=== PATIENT | male | born 1955 | race Caucasian/White ===

== ENCOUNTER 2023-06-29 21:49 | Inpatient (IN) | payer MEDICARE, MEDICAID, SELFPAY ==
[2023-06-29 17:14] VITALS: BP 156/85
--- NOTE | 2023-06-29 17:23 | ED.GENMED ---
History of Present Illness
General
Chief Complaint: Fall
Source: patient and ambulance crew
Exam Limitations: none
Time Seen by Provider: 06/29/23 17:01
Nursing documentation reviewed up to this point in time: agreed with
History of Present Illness
History of Present Illness:
68-year-old male presents emergency department after an unwitnessed fall. He reports he hit his head. He has had blood in his urine. He is intermittently confused.
Past History
Past History
ED Past Medical History: HTN, NIDDM, Renal failure, Other (Anemia) and Other (Metabolic encephalopathy, hyponatremia)
ED Past Surgical History: Orthopedic (Laminectomy)
Social History
Tobacco: Non-smoker
Alcohol: None
Drug: None
Living: alf
Review of Systems
Review of Systems
Allergies reviewed?: Yes
All Other Systems: Not applicable
Constitutional: Denies fever
EENT: Reports no symptoms
Respiratory: Reports no symptoms
Cardiac: Reports no symptoms
ABD/GI: Reports no symptoms
: Reports bleeding
Musculoskeletal: Reports no symptoms
Skin: Reports no symptoms
Neurological: Reports no symptoms
Endocrine: Reports no symptoms
Phy Exam
Physical Exam
Physical Exam:
Physical Exam
General: Chronic ill appearance, afebrile
Neck: supple. no meningeal signs. normal posterior pharynx
Heart: s1/s2 regular rate and rhythm, no murmur. equal radial
pulses. Dialysis catheter right subclavian
HEENT: Pupils equal round reactive to light, EOMI
Lungs: no acute respiratory distress. clear bilaterally
Abdomen: normal bowel sounds. not tender. no CVAT
: Mccloud catheter in place
Neuro: alert and oriented to person place, confused as to events. no focal neurological deficits cranial nerves II through XII intact
Skin: no rash
Psychiatric: Interactive
Extremities: Right upper extremity and left lower extremity edema. no calf tenderness. negative homans. good distal pulses
Course
Orders/Labs/Results
Orders:
Orders
06/29/23 17:14
IV Insert/Care/Rem.- Treatment PRN
06/29/23 17:15
Electrocardiogram (*1) Urgent
Reason for Study: Other
Other Reason for Exam: unwitnessed fall
CT Head W/o Iv Contrast Urgent
Comment:
Reason For Exam: fall, on eliquis
06/29/23 17:21
Pelvis, 1 or 2 Views CR [CR Pelvis - 1 Or 2 Views ] Urgent
Comment:
Reason For Exam: fall
06/29/23 17:45
Type+Screen Urgent
Complete Blood Count/With Diff Urgent
Comprehensive Metabolic Panel Urgent
06/29/23 19:38
Urinalysis Reflex To Culture Urgent
Date Specimen was Collected: 06/29/23
Time Specimen was Collected: 19:29
Urine Microscopic Reflex Cult Urgent
STOOL [C difficile Antigen & Toxins] Urgent
LEXUS Source: Feces/Stool
Specimen Description:
Date Specimen was Collected: 06/29/23
Time Specimen was Collected: 19:29
Stool Culture Urgent
LEXUS Source: Feces/Stool
Specimen Description:
Date Specimen was Collected: 06/29/23
Time Specimen was Collected: 19:29
Urine Culture Urgent
LEXUS Source: U
Specimen Description:
Date Specimen was Collected: 06/29/23
Time Specimen was Collected: 19:29
06/29/23 21:32
Admit/Transfer Patient As Directed
Co-Sign Provider:
Level of Care: Inpatient admission
Assign to:: Medical/Surgical
Physician / Group: Hospitalist
Diagnosis: Confusion, fall, hematuria
Reason for Hospitalization: Confusion, fall, hematuria
Expected length of stay greater than two midnights?: Yes
ELOS- Estimated Length of Stay in days: 3
I certify the patient meets the requirements for IP care: Yes
06/29/23 21:34
Code Status As Directed
Resuscitation Status: Full Code
06/29/23 22:00
Flush (0.9% Sodium Chloride) [Flush (Nss)] See Dose Instructions IV PER PROTOCOL
06/29/23 22:21
Acetaminophen [Tylenol] 1,000 mg PO TID
Bisacodyl [Dulcolax] 10 mg RECTAL DAILY PRN
Bisacodyl [Dulcolax] 10 mg RECTAL [id number] PRN
Docusate W/Senna [Senokot-S] 1 tablet PO BIDPRN PRN
Magnesium Hydroxide [Milk of Magnesia] 30 ml PO HSPRN PRN
Oxycodone [Roxicodone] 10 mg PO Q6H PRN
Polyethylene Glycol Powder [Miralax] 17 grams PO DAILYPRN PRN
06/29/23 22:21
NEPHROLOGY CONSULT Routine
Consulting Provider: Tyrese Dunn V.
Was physician already notified: Yes
Reason for consult: HD
VTE Contraindication Routine
VTE Mechanical Device Contraindication: Edema of lower extremity
Pharmocologic Contraindication: Renal impairment
Comment: on apixaban
Activity As Directed
Activity Level: Out of Bed- Wheelchair
Neurological Checks As Directed
Frequency: Per unit guidelines
Vital Signs As Directed
Frequency: Per unit guidelines
06/29/23 23:53
H&H Q6H
06/30/23 04:21
H&H Q6H
06/30/23 Breakfast
Regular
At Your Request: Limited Participation
Basic Metabolic Panel IN AM
Complete Blood Count/No Diff IN AM
TSH IN AM
06/30/23 08:00
Amlodipine [Norvasc] 10 mg PO DAILY
Apixaban [Eliquis] 2.5 mg PO BID
Aspirin Chewable [Low Strength Aspirin] 81 mg PO DAILY
Cholecalciferol (Vitamin D3) [VITAMIN D3 (cholecalciferol)] 25 mcg PO DAILY
Clopidogrel Bisulfate [Plavix] 75 mg PO DAILY
GlipiZIDE [Glucotrol] 5 mg PO BID AT 0800,1700
Lidocaine [Lidocaine 4% Patch] 1 patch TOPICAL DAILY
METFORMIN HCl [Glucophage] 500 mg PO BID
Metoprolol [Lopressor] 25 mg PO BID
Pantoprazole [Protonix] 40 mg PO DAILY
06/30/23 10:21
H&H Q6H
06/30/23 16:21
H&H Q6H
Abnormal Lab Results
06/29/23 06/29/23
17:45 19:38
WBC 15.9 H 10^3/uL
(4.8-10.8)
RBC 2.70 L 10^6/uL
(4.70-6.10)
Hgb 7.7 L g/dL
(13.0-18.0)
Hct 23.7 L %
(39.0-52.0)
MCHC 32.5 L g/dL
(33.0-37.0)
Plt Count 495 H 10^3/uL
(130-400)
Abs Immat Gran (auto) 0.1 H 10^3/uL
(0-0.05)
Absolute Neuts (auto) 13.0 H 10^3/uL
(1.4-6.5)
Absolute Monos (auto) 1.4 H 10^3/uL
(0.1-0.6)
Immature Gran % 0.6 H %
(0-0.5)
Neutrophils % 81.8 H %
(42.2-75.2)
Lymphocytes % 7.4 L %
(20.5-51.1)
BUN 33 H mg/dl
(9-20)
Creatinine 4.0 H mg/dL
(0.7-1.3)
Glucose 112 H mg/dl
(70-99)
Alkaline Phosphatase 137 H U/L
(38-126)
Albumin 3.0 L g/dl
(3.5-5.0)
Ur Occult Blood Reflex 4+ A
(Negative)
Leukocyte Esterase Rfl 1+ A
(Negative)
Urine RBC >100 A /HPF
(0-2)
Urine Glucose 1+ A
(Negative)
Urine Albumin (Reflex) 2+ A
(Neg - Trace)
06/29/23 17:45
06/29/23 17:45
Vital Signs
Initial and Last Documented VS:
Initial Vital Signs
Temp Pulse Resp BP Pulse Ox
97.9 F 86 17 156/85 96
06/29/23 17:14 06/29/23 17:14 06/29/23 17:14 06/29/23 17:14 06/29/23 17:14
Last Documented Vital Signs
Temp Pulse Resp BP Pulse Ox
98.0 F 111 18 165/85 95
06/29/23 22:30 06/29/23 22:30 06/29/23 22:30 06/29/23 22:30 06/29/23 22:30
MDM/Problems Addressed
MDM/Problems Addressed:
68-year-old male with anemia, hematuria on Eliquis. Admit to hospitalist, follow hemoglobin, dialyze. Unclear cause of leukocyte, no infection found.
Chronic conditions affecting care: Kidney disease and Other (Prior DVT)
Acute Exacerbation and/or Progression of Chronic Illness: Kidney disease and Other (Prior DVT)
*Radiology
Radiology exam reviewed: radiology read reviewed (CT head no acute findings, pelvic x-ray no acute findings)
*Pulse Oximetry
Patient hypoxic: no
*EKG
Interpreted by ED Provider?: NA
*Dry End Operator Interpretation
Rate: Dry End Operator- N/A
*Critical Care Note
Total Time (30-74mins, 75-104mins- exclusive of procedures): Not Applicable
Patient Management
Social determinants of health affecting care: Living situation
Discussion with other providers: Hospitalist
Escalation/DeEscalation of care consider admission/obs:
admit indicated
ED Attending Note
-
Portions of this chart may have been created with voice recognition software.� Occasional wrong word or��sound alike� substitutions may have occurred due to the inherent limitations of voice recognition software.
Discharge Plan
Departure
Patient Disposition: Admit
Date of Disposition: 06/29/23
Time of Disposition: 20:08
Admit to: Telemetry
Presentation/result/management discussed w/ accepting MD/DO: Hospitalist
Patient with high blood pressure during this ER visit?: Yes
Condition: Fair
Discharge Problem:
Hematuria, Anemia, Fall, Chronic anticoagulation
Interventions
Interventions:
*Risk Screen - Suicide Last Done: 06/29/23 19:22
*General Assessment Last Done: 06/29/23 19:22
*Neglect/Abuse Screening Last Done: 06/29/23 19:22
ED- Fall Risk Assessment Last Done: 06/29/23 19:25
*ED COVID-19 Vaccine History Last Done: 06/29/23 19:22
*Nursing Disposition Last Done: 06/29/23 22:43
ED-Musculoskeletal Assessment Last Done: 06/29/23 19:25
ED- Neurological Assessment Last Done: 06/29/23 19:25
ED-Skin Assessment Last Done: 06/29/23 19:25
Discharge Date and Time
Discharge Date/Time: 06/29/23 22:43
[2023-06-29 17:53] LABS: % Basophils 0.3 % (0-2); % Eosinophils 1.2 % (0-6); % Immature Granulocytes 0.6 % (0-0.5); % Lymphocytes 7.4 % (20.5-51.1); % Monocytes 8.7 % (1.7-9.3); % Neutrophils 81.8 % (42.2-75.2); Absolute Basophils 0.1 10^3/uL (0-0.2); Absolute Eosinophils 0.2 10^3/uL (0-0.7); Absolute Immature Granulocytes 0.1 10^3/uL (0-0.05); Absolute Lymphocytes 1.2 10^3/uL (1.2-3.4); Absolute Monocytes 1.4 10^3/uL (0.1-0.6); Hematocrit 23.7 % (39.0-52.0); Hemoglobin 7.7 g/dL (13.0-18.0); Mean Corp Hgb Conc. 32.5 g/dL (33.0-37.0); Mean Corpuscular Hgb 28.5 pg (27.0-31.0); Mean Corpuscular Volume 87.8 fL (80.0-94.0); Mean Platelet Volume 8.9 fL (7.4-10.4); Nucleated Red Blood Cells % 0 % (-); Platelet Count 495 10^3/uL (130-400); Red Cell Dist. Width 14.5 % (11.5-14.5); White Blood Cell Count 15.9 10^3/uL (4.8-10.8)
[2023-06-29 18:09] LABS: ALT (SGPT) < 10 U/L (0-50); AST (SGOT) 18 U/L (17-59); Alkaline Phosphatase 137 U/L (38-126); Blood Urea Nitrogen 33 mg/dl (9-20); Calcium 9.3 mg/dl (8.4-10.2); Carbon Dioxide 29 mmol/L (22-30); Chloride 98 mmol/L (98-107); Glucose 112 mg/dl (70-99); Potassium 4.3 mmol/L (3.5-5.1); Sodium 136 mmol/L (135-145); Total Bilirubin 0.5 mg/dl (0.2-1.3); Total Protein 6.6 g/dl (6.3-8.2); eGFR 15.73
--- NOTE | 2023-06-29 19:00 | EDRN ---
Report received, patient yelling out for nurse, went in to see patient and got some vitals and sent off some labs ordered. patient stating he is soiled, patient cleaned up, requesting to keep his bed coronado, states 'i can get myself on and off it, I do
it all the time' patient reminded to use call mullen.
[2023-06-29 19:45] LABS: Urine Albumin 2+ (Neg - Trace); Urine Bilirubin Negative (Negative); Urine Character Very Cloudy (Clear); Urine Color Red; Urine Glucose 1+ (Negative); Urine Ketone Negative (Negative); Urine Leukocyte 1+ (Negative); Urine Nitrite Negative (Negative); Urine Occult Blood 4+ (Negative); Urine Urobilinogen Negative (Neg - 1+)
[2023-06-29 19:54] LABS: Urine Red Blood Cell >100 /HPF (0-2)
[2023-06-29 19:57] VITALS: BP 134/86
--- NOTE | 2023-06-29 20:00 | EDRN ---
Patient yelling again, go into room, patient yells 'put me on this' as he hands me the bedpan, assisted patient with bed coronado, again reminding him about using the call mullen and how he's speaking to staff, call mullen in place
--- NOTE | 2023-06-29 20:45 | EDRN ---
Dr. Staton in at bedside working on admission, patient tells him, 'he's not sure where his assistant technician went but he wants applejuice' Admission in progress patient reminded about call mullen and not yelling out again, patient was brought drink by PCT,
not assistant technician.
--- NOTE | 2023-06-29 21:13 | HPS.HSE ---
Family Physician
-
Family Physician: * NONE
Chief Complaint
-
fall and confusion
History of Present Illness
68 man with h/o ESRD on HD, who lives in a group home and is a full lift, comes in confusion, and hematuria s/p a fall in his NH. Patient was confused and could not provide further history. He has a history of metabolic encephalopathy. He
usually gets his care at [facility]. We do not have prior visits here. IN ED, ac CT of his head showed:
No acute intracranial abnormality noted.
Mild atrophy.
Minimal nonacute sinusitis.
A XR of his abd showed:
No acute fractures nor dislocations are noted.
There is mild bilateral acetabular sclerosis.
There is mild diffuse joint space narrowing of both hip joints.
Medical History
Past Medical History
Past Medical History: Reports Other
Additional Past Medical History:
ESRD on HD
Chronic anemia
Metabolic encephalopathy
Hyponatremia
NIDDM
Past sepsis from laminectomy
Essential HTN
Chronic pain on opioids
GERD
Past Surgical History: Reports Other
Additional Past Surgical History:
See above
Social History
Unable to obtain full social history at this time due to: Acuity
Family History
Family History: Not pertinent
Allergies / Home Medications
Allergies reflects when Allergies were last updated in [facility].
Home Medications with original date entered in [facility]
Allergy/Medication List:
Allergies
Allergy/AdvReac Type Severity Reaction Status Date / Time
No Known Allergies Allergy Unverified 06/29/23 20:04
Home Medications
acetaminophen 500 mg tablet 1,000 mg PO TID 06/29/23
amlodipine 10 mg tablet 10 mg PO DAILY 06/29/23
apixaban 2.5 mg tablet 2.5 mg PO BID 06/29/23
aspirin 81 mg chewable tablet 81 mg PO DAILY 06/29/23
bisacodyl 10 mg rectal suppository 10 mg MA DAILY PRN if no results for MOM 06/29/23
cholecalciferol (vitamin D3) 25 mcg (1,000 unit) tablet 25 mcg PO DAILY 06/29/23
clopidogrel 75 mg tablet 75 mg PO DAILY 06/29/23
glipizide 5 mg tablet 5 mg PO BID 06/29/23
lidocaine 4 % topical patch 1 patch topical DAILY lower back 06/29/23
magnesium hydroxide 400 mg/5 mL oral suspension (Milk of Magnesia) 30 ml PO HSPRN PRN if no BM in 3 days 06/29/23
metformin 500 mg tablet 500 mg PO BID 06/29/23
metoprolol tartrate 25 mg tablet 25 mg PO BID 06/29/23
oxycodone 10 mg tablet 10 mg PO Q6H PRN severe pain 06/29/23
pantoprazole 40 mg tablet,delayed release 40 mg PO DAILY 06/29/23
Review of Systems
-
Unable to obtain full review of systems at this time due to: Acuity
Physical Exam
Vital Signs
Vital Signs
Temp Pulse Resp BP Pulse Ox
97.9 F 95 16 134/86 96
06/29/23 17:14 06/29/23 19:57 06/29/23 19:57 06/29/23 19:57 06/29/23 19:57
Physical Exam
General: Well Developed and Obese
HEENT: Atraumatic, Nose Appears Normal and Ears Appear Normal
Respiratory: Clear
Cardiac: S1/S2 and Regular Rhythm
GI: Soft, Non Tender and Non Distended
Musculoskeletal: No Clubbing, No Cyanosis, Edema, Right Upper Extremity and Edema, Left Lower Extremity
Skin: Warm and Dry
Neuro: Awake and Alert
Psych: Confused
Laboratory Results
-
06/29/23 17:45
06/29/23 17:45
Laboratory Results
Total Bilirubin 0.5 mg/dl (0.2-1.3) 06/29/23 17:45
AST 18 U/L (17-59) 06/29/23 17:45
ALT < 10 U/L (0-50) 06/29/23 17:45
Alkaline Phosphatase 137 U/L (38-126) H 06/29/23 17:45
Data Reviewed
-
Lab Data: Labs Reviewed by me
Impression/Plan
-
IMPRESSION:
68 man with fall, confusion, no prior records in our system, and the following findings:
WBC 15.9
H/H 7.7/23.7
BUN/Creat 33/4.0
Hematuria
PLAN:
1. Hematuria - unclear what his baseline H/H is.
H/H Q6
Transfuse if Hgb < 7.0
2. Confusion with h/o metabolic encephalopathy and large amounts of opioids
Get past records in the am
Follow daily
3. WBC of 15.9, vitals OK, without a fever.
This could be stress reaction vs an infection
If infection, could be renal source or skin (legs have chronic wounds)
Re-check in am
If going up, start abx
If fever starts, or vitals worsen, start abx
Follow results of UA culture
4. ESRD on HD
Renal consult for HD
Full code
apixaban for DVTp
[2023-06-29 22:30] VITALS: BP 165/85; BMI 27.5
[2023-06-29] MEDS: TYLENOL 1000 MG PO (23:08)
[2023-06-30] VITALS (7 sets, daily range): BP systolic 118–156; BP diastolic 60–74; BMI 27.4
--- NOTE | 2023-06-30 00:03 | PTCARENOTE ---
Patient arrived from the ED via stretcher at approximately 2215. Patient pulled over from stretcher to bed w/ no event. Patient able to answer all orientation questions correctly, but confused conversation at times. Assessment completed as
documented. VSS as documented. Patient oriented to room. Bed in lowest position. Bed alarm in place for patient safety. Call mullen within reach.
[2023-06-30 00:13] LABS: Hematocrit 22.2 % (39.0-52.0)
[2023-06-30 05:55] LABS: Hematocrit 22.7 % (39.0-52.0); Hemoglobin 7.1 g/dL (13.0-18.0); Mean Corp Hgb Conc. 31.3 g/dL (33.0-37.0); Mean Corpuscular Hgb 28.1 pg (27.0-31.0); Mean Corpuscular Volume 89.7 fL (80.0-94.0); Mean Platelet Volume 8.9 fL (7.4-10.4); Platelet Count 431 10^3/uL (130-400); Red Blood Cell Count 2.53 10^6/uL (4.70-6.10); Red Cell Dist. Width 14.4 % (11.5-14.5); White Blood Cell Count 11.7 10^3/uL (4.8-10.8)
[2023-06-30 06:29] LABS: Blood Urea Nitrogen 39 mg/dl (9-20); Calcium 9.2 mg/dl (8.4-10.2); Carbon Dioxide 23 mmol/L (22-30); Chloride 100 mmol/L (98-107); Estimated Creatinine Clearance 19 ml/min; Glucose 82 mg/dl (70-99); Potassium 4.6 mmol/L (3.5-5.1); Sodium 135 mmol/L (135-145); eGFR 13.65
[2023-06-30 06:57] LABS: TSH 2.19 uIU/ml (0.47-4.68)
--- NOTE | 2023-06-30 09:07 | WOUNDNOTE ---
R HEEL (PLANTAR LATERAL)(with photo flash)
--- NOTE | 2023-06-30 09:07 | WOUNDNOTE ---
R HEEL (LATERAL PLANTAR)
--- NOTE | 2023-06-30 09:08 | WOUNDNOTE ---
R PLANTAR FOOT (with photo flash)
[2023-06-30] MEDS: ELIQUIS 2.5 MG PO ×2 (09:17→21:04)
[2023-06-30] MEDS: GLUCOPHAGE 500 MG PO (09:17)
[2023-06-30] MEDS: NORVASC 10 MG PO (09:17)
[2023-06-30] MEDS: LOW STRENGTH ASPIRIN 81 MG PO (09:17)
[2023-06-30] MEDS: TYLENOL 1000 MG PO ×3 (09:17→21:04)
[2023-06-30] MEDS: VITAMIN D3 (cholecalciferol) 25 MCG PO (09:17)
[2023-06-30] MEDS: PROTONIX 40 MG PO (09:17)
[2023-06-30] MEDS: PLAVIX 75 MG PO (09:18)
[2023-06-30] MEDS: LIDOCAINE 4% PATCH 1 PATCH TOPICAL (09:18)
[2023-06-30] MEDS: GLUCOTROL 5 MG PO (09:18)
[2023-06-30] MEDS: LOPRESSOR 25 MG PO ×2 (09:18→21:04)
--- NOTE | 2023-06-30 09:20 | WOUNDNOTE ---
[facility] RN note: Patient admitted with confusion, fall, hematuria, +C diff. Patient admitted from [facility].
See H&P for complete history.
PMH: ESRD on HD, 04/2022 RLE (bypass?) and R heel ulcer I+D surgery at [facility] (patient stated Dr. Ortiz vascular surgeon did his surgery and sees her weekly, last seen 06/18/23 as per patient). Anemia, metabolic encephalopathy, NIDDM, laminectomy, HTN,
chronic pain, GERD, on Eliquis, patient's IV Cefazolin was placed on hold 06/27 as per SNF paperwork. Patient stated he lived with his sister prior to his SNF rehab admission. He gave this tech writer permission to call his sister to ask about his
medial/surgical history.
Wound Location and type/assessment: Patient admitted with: Full thickness diabetic/PAD, surgical R plantar lateral heel ulcer close to or to bone, plantar section dark red/yellow fibrin, lateral heel section with black eschar with erythema around
eschar section. Ulcer draining mod-large amount yellow/green drainage (Mesalt and Xerofoam, gauze, abd pad, Kerlix wrap was on R ulcer). R dorsal foot dry black eschar. R groin and R medial calf healed scars suspect from bypass surgery.
Appetite: fair for breakfast.
Pressure redistribution devices in place: Versacare Accumax. Patient is able to turn to side to be placed on bedpan. Pillow to off load heels. He stated he has multiple heel off loading boots at [facility]. And he stated he is NWB RLE.
Plan: Dressing changed R heel. Heels off bed with pillow. t/c SPD and orderer bariatric air chair cushion and TruVue lite heel relief boot.
Will confirm orders with Dr. Wray and update RN/PCT Tiffany.
Care plan to be updated and will follow as needed. Patient to follow up with his surgeon.
[2023-06-30 09:35] LABS: Glucose - Point of Care 201 mg/dl (70-99)
--- NOTE | 2023-06-30 10:24 | W.PN.HOSP.TC ---
Today's Communication/Plan
-
start ancef
obtain culture reports from [facility]
ID consult
start oral vancomycin
Assessment / Plan
Assessment / Plan
1. C diff colitis
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
-Patient having liquid stool overnight.
-Mary score 1 .
-starting on oral vancomycin
-ID consult
2. L2-L3 epidural abscess/discitis
Psoas abscess
-S/p lumbar laminectomy and drainage on 06/12 at [facility]
-culture data requested
-Repeat blood culture ordered
-maintain on ancef 2g and 3g Sa after HD
3. LUIS ANGEL on HD
Suspected Post infectious GN vs ATN
-Patient required brief dialysis support in April
-Patient and [facility] in May patient had recurrence of renal failure necessitating dialysis support
-Patient currently on Friday dialysis routine
-Nephro consulted for further help
4. Hematuria
- callahan catheter in place
- on plavix/eliquis, urine clearing up
5. Acute normocytic anemia
-Suspecting anemia secondary to renal disease
-Hemoglobin 7.1, transfusing 1 unit PRBC with HD today
6. Chronic Right heel wound
PAD with h/o RLE art stent
-Per limited records available, patient have repeated debridement by vascular surgeon at [facility]
-No MRI of right foot per records review.
-retail greeting card merchandiser consulted and following
DVT PPX - eliquis
Full code
Discussed care with ID
Total time spent : 55 mins
Anticipated Discharge: > 48 hours
Subjective/Interval History
-
Date of Service: June 30, 2023
resting comfortable in bed
afebrile in night
having liquid stool
no abd pain/nausea/vomiting
Objective Data
-
Labs:
Laboratory Results
06/29/23 06/30/23 06/30/23
23:53 05:41 05:41
WBC 11.7 H
Hgb 7.0 L Cancelled 7.1 L
Hct 22.2 L Cancelled
Plt Count
Sodium
Potassium
Chloride
Carbon Dioxide
BUN
Creatinine
Glucose
Calcium
06/30/23 06/30/23 06/30/23
05:41 10:13 16:21
WBC
Hgb Pending Pending
Hct 22.7 L Pending Pending
Plt Count 431 H
Sodium 135
Potassium 4.6
Chloride 100
Carbon Dioxide 23
BUN 39 H
Creatinine 4.5 H*
Glucose 82
Calcium 9.2
Vital Signs:
Vital Signs
Temp Pulse Resp BP Pulse Ox
97.9 F 91 18 153/74 95
06/30/23 08:48 06/30/23 08:48 06/30/23 08:48 06/30/23 08:48 06/30/23 08:48
I&O
06/29/23 06/30/23 07/01/23
06:59 06:59 06:59
Intake Total 480 / 480 100 / 100
Output Total 675 / 675
Balance -195 / -195 100 / 100
Review of Systems
-
Cardiac: Reports No Symptoms
Abdomen/GI: Denies Abdominal Pain or Nausea
Breast: Reports No Symptoms
Physical Exam
-
General: No Apparent Distress and Comfortable
HEENT: Negative Oxygen
Respiratory: Clear to Auscultation
Cardiac: Regular Rhythm and S1/S2; Negative Murmur
GI: Soft, Nontender, Nondistended and Normal Bowel Sounds
Musculoskeletal: No Edema and Other (Right heel dressing in place)
Neuro: Awake, Alert, Oriented, No Motor Deficits and Nonfocal/Grossly Intact
Psych: Calm
[2023-06-30 10:30] LABS: Hematocrit 22.9 % (39.0-52.0); Hemoglobin 7.2 g/dL (13.0-18.0)
--- NOTE | 2023-06-30 10:58 | WOUNDNOTE ---
[facility] RN note: t/c Spoke with FATUMA Patel at Dr. Renato Ortiz's office (vascular surgeon)-wound update given including redness around
--- NOTE | 2023-06-30 11:02 | WOUNDNOTE ---
[facility] RN note: t/c Spoke with FATUMA Patel at Dr. Renato Ortiz's office (vascular surgeon)-wound update given including redness around R lateral heel eschar section of wound, green drainage, Dakin's gauze packing ordered, ID on consult. Amanda to pass on
information to Dr. Ortiz and will call back with any other instructions. Amanda confirmed patient did see vascular surgeon Dr. Ortiz on 06/18/23.
--- NOTE | 2023-06-30 11:45 | WOUNDNOTE ---
[facility] RN note: Received t/c back from Amanda from Dr. Ortiz's office who stated surgeon is on agreement with Dakin's gauze dressing and patient should follow up at Dr. Ortiz's office in 1-2 weeks. Discharge instructions updated. Amanda stated she would
call patient's sister re: follow up appt.
[2023-06-30] MEDS: FIRVANQ 125 MG PO ×3 (11:51→23:37)
[2023-06-30 11:55] LABS: Glucose - Point of Care 67 mg/dl (70-99)
[2023-06-30 11:55] LABS: Glucose - Point of Care 68 mg/dl (70-99)
[2023-06-30 12:16] LABS: Glucose - Point of Care 66 mg/dl (70-99)
[2023-06-30 12:39] LABS: Glucose - Point of Care 79 mg/dl (70-99)
--- NOTE | 2023-06-30 12:47 | CON.ID ---
Consultation
-
Date/Time Consultation Requested: 06/30/23 10:14
Date/Time Consultation Performed: 06/30/23 12:48
Requesting Provider: Dr Wray
Performing Provider: Dr Bhatt
Reason for Consultation: epidural abscess, heel wound, c diff
Chief Complaint / Past History
Chief Complaint
fall and confusion
History of Present Illness
Mr Hairston is a 68 year old male with recent admission to [facility] for L2:L3 discitis/epidural abscess s/p laminectomy 06/12, course complicated by post infectious GN vs ATN now on HD via tunneled line on and chronic right heel
wound. He has been receiving care at [facility] where he suffered a fall and confusion and he was brought here for further evaluation.
No sinus tenderness, no post nasal drip.
Since arrival here he has been afebrile, bp stable, wbc on arrival 15.9 now 11.7, hgb 7.2, plt 431, L shift is noted, cr on arrival 4.0 and 4.5 today, t bili 0.5, ast 18, alt <10, alk phos 137, UA > 100 rbc/hpf, no pyuria - of note arrived with
callahan catheter, CT head 06/28: minimal sinusitis, 06/28 pelvis xray: mild bilateral hip OA, 06/28 C diff toxin and antigen positive,
Past History
Additional Past Medical History:
ESRD on HD
PAD/PVD
Chronic anemia
Metabolic encephalopathy
Hyponatremia
NIDDM
Past sepsis from laminectomy
Essential HTN
Chronic pain on opioids
GERD
Additional Past Surgical History:
as per hpi
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
Allergy History:
No Known Allergies Allergy (Unverified 06/29/23 20:04)
Medications Reviewed: Yes
Social History
Tobacco: Non-Smoker
Alcohol: Daily (refuses to quantify the amount)
Drug: None
Living: [facility]
Family History
Family History: Not Pertinent
Review of Systems
Review of Systems
General: Negative Fever or Chills
All systems: All other systems were reviewed and were negative
Vital Signs
Temp Pulse Resp BP Pulse Ox
97.9 F 91 18 153/74 95
06/30/23 08:48 06/30/23 08:48 06/30/23 08:48 06/30/23 08:48 06/30/23 08:48
Physical Exam
Physical Exam
Constitutional: No Acute Distress
Cardiovascular: Regular Rate and S1/S2; Negative Murmur or Rub
Pulmonary: Clear and Symmetric; Negative Wheezes, Rales or Rhonchi
Gastrointestinal: Soft, Non Tender, Distended (mild), Normal Bowel Sounds, No Rebound and No Guarding
Skin: Warm and Dry; Negative Rash or Jaundice
Wound: Other (no probe to bone, clean with soft tissue in the base; surgical site on the back sutures remain in place, no erythema, dehiscence or drainage)
Neurological: Awake, Oriented and Other (no asterixes)
Lab / Diagnostic Study Results
06/30/23 16:21
06/30/23 05:41
Abs Immat Gran (auto) 0.1 10^3/uL (0-0.05) H 06/29/23 17:45
Absolute Neuts (auto) 13.0 10^3/uL (1.4-6.5) H 06/29/23 17:45
Absolute Lymphs (auto) 1.2 10^3/uL (1.2-3.4) 06/29/23 17:45
Absolute Monos (auto) 1.4 10^3/uL (0.1-0.6) H 06/29/23 17:45
Absolute Basos (auto) 0.1 10^3/uL (0-0.2) 06/29/23 17:45
Immature Gran % 0.6 % (0-0.5) H 06/29/23 17:45
Neutrophils % 81.8 % (42.2-75.2) H 06/29/23 17:45
Lymphocytes % 7.4 % (20.5-51.1) L 06/29/23 17:45
Monocytes % 8.7 % (1.7-9.3) 06/29/23 17:45
Eosinophils % 1.2 % (0-6) 06/29/23 17:45
Basophils % 0.3 % (0-2) 06/29/23 17:45
Microbiology Results
Micro:
06/30/23 07:44 Blood Culture - Pending
Blood/Venous
06/30/23 10:13 Blood Culture - Pending
Blood/Venous
06/29/23 19:38 C. difficile GDH Antigen & Toxins - Final
Feces/Stool Toxigenic C.difficile Positive
06/30/23 01:17 MRSA Screen - Pending
Nose
06/29/23 19:38 Urine Culture - Pending
Urine
06/29/23 19:38 Salmonella/Shigella Culture - Pending
Feces/Stool Campylobacter Culture - Pending
Shiga Toxin Test - Pending
Assessment / Plan
L2-L3 and possibly L3-L4 Discitis, Osteomyelitis
Epidural abscess from L1- sacrum, s/p laminectomy 06/12
Psoas Abscesses bilaterally
- s/p drain placement 06/11
MSSA Bacteremia
C difficile
LUIS ANGEL: ATN vs PIGN
- blood cultures x2 in progress
- mrsa screen pending
- AXR
- will follow up additional records; I have reviewed the paper records currently on the chart; requested additional records - dc summary, ID notes, OR notes, cultures etc
- continue cefazolin for planned course - 8 weeks - awaiting additional records to clarify dates, treating MD etc
- agree with oral vancomycin x 10 days, then would continue oral vanc 125 mg PO BID while on cefazolin
- stop protonix (increases risk of relapse)
- probiotics while on cefazolin
- note prn cathartics, none scheduled - not needed at this time
- enhanced precautions
Chronic Pressure Wound Heel
- wound care
sinusitis on the CT head
[2023-06-30] MEDS: VISBIOME 2 CAP PO (14:49)
--- NOTE | 2023-06-30 14:59 | W.CON.NEPH ---
Consultation
-
Date/Time Consultation Requested: 06/29/2023 22:21
Date/Time Consultation Performed: 06/30/2023 2:59PM
Requesting Provider: Jeffery Staton
Performing Provider: Cindy Bryant
Reason for Consultation: ESRD on HD
Medical History
-
Chief Complaint: LUIS ANGEL on HD
History of Present Illness:
Mr. Hairston is a 68YOM with PMH of LUIS ANGEL (on HD), chronic anemia, PAD (chronic R heel wound), diabetes, laminectomy for epidural abscess, chronic pain (on opiods), GERD who presents to the hospital after a fall at [facility]. He was sent there
after a stay at [facility] where he was treated for L2-L3 epidural abscess and discitis as well as a psoas abscess. he underwent lumbar laminectomy and drainage on 06/12 at [facility]. He developed an LUIS ANGEL requiring HD. LUIS ANGEL was thought to be 2/2 to
post infectious GN vs. ATN. He was placed on a TTS routine. He is recieving acef 3g after HD. He also has Cdiff.
Today, he states that he is not sure why he is in the hospital other than his fall. He feels okay, breathing is okay. Continues to make urine without issue.
Past Medical History
LUIS ANGEL (on HD)
chronic anemia
PAD (chronic R heel wound)
diabetes
laminectomy for epidural abscess
chronic pain (on opiods)
GERD
HTN
Hyponatremia
Past Medical History: Other
Past Surgical History: Other (laminectomy)
Social History
Tobacco: Non-Smoker
Alcohol: None
Drug: None
Living: Jail
Family History
Family History: Not Pertinent
Allergies / Home Medications
Allergy/AdvReac Type Severity Reaction Status Date / Time
No Known Allergies Allergy Unverified 06/29/23 20:04
�Medication �Instructions �Recorded �Confirmed �Type
acetaminophen 500 mg tablet 1,000 mg PO TID Pain 06/29/23 06/29/23 History
amlodipine 10 mg tablet 10 mg PO DAILY Blood Pressure 06/29/23 06/29/23 History
apixaban 2.5 mg tablet 2.5 mg PO BID Blood Clot 06/29/23 06/29/23 History
Prevention/Tx
aspirin 81 mg chewable tablet 81 mg PO DAILY Blood Clot 06/29/23 06/29/23 History
Prevention/Tx
bisacodyl 10 mg rectal suppository 10 mg GA DAILY PRN if no results 06/29/23 06/29/23 History
for MOM
cholecalciferol (vitamin D3) 25 25 mcg PO DAILY Supplement 06/29/23 06/29/23 History
mcg (1,000 unit) tablet
clopidogrel 75 mg tablet 75 mg PO DAILY Blood Clot 06/29/23 06/29/23 History
Prevention/Tx
glipizide 5 mg tablet 5 mg PO BID Diabetes 06/29/23 06/29/23 History
lidocaine 4 % topical patch 1 patch topical DAILY lower back 06/29/23 06/29/23 History
magnesium hydroxide 400 mg/5 mL 30 ml PO HSPRN PRN if no BM in 3 06/29/23 06/29/23 History
oral suspension (Milk of Magnesia) days
metformin 500 mg tablet 500 mg PO BID Diabetes 06/29/23 06/29/23 History
metoprolol tartrate 25 mg tablet 25 mg PO BID Blood Pressure 06/29/23 06/29/23 History
oxycodone 10 mg tablet 10 mg PO Q6H PRN severe pain 06/29/23 06/29/23 History
pantoprazole 40 mg tablet,delayed 40 mg PO DAILY Gastrointestinal 06/29/23 06/29/23 History
release Issue
Review of Systems
-
History Source: Patient
All other systems: Negative unless noted
Musculoskeletal: Muscle Stiffness
Physical Exam
Vital Signs
Vital Signs
Temp Pulse Resp BP Pulse Ox
98.3 F 79 18 125/60 95
06/30/23 14:58 06/30/23 14:58 06/30/23 14:58 06/30/23 14:58 06/30/23 08:48
Lab Results
WBC 11.7 10^3/uL (4.8-10.8) H 06/30/23 05:41
RBC 2.53 10^6/uL (4.70-6.10) L 06/30/23 05:41
Hgb Cancelled 06/30/23 16:21
Hct Cancelled 06/30/23 16:21
Plt Count 431 10^3/uL (130-400) H 06/30/23 05:41
Sodium 135 mmol/L (135-145) 06/30/23 05:41
Potassium 4.6 mmol/L (3.5-5.1) 06/30/23 05:41
Chloride 100 mmol/L (98-107) 06/30/23 05:41
Carbon Dioxide 23 mmol/L (22-30) 06/30/23 05:41
BUN 39 mg/dl (9-20) H 06/30/23 05:41
Creatinine 4.5 mg/dL (0.7-1.3) H* 06/30/23 05:41
eGFR 13.65 06/30/23 05:41
Glucose 82 mg/dl (70-99) 06/30/23 05:41
Calcium 9.2 mg/dl (8.4-10.2) 06/30/23 05:41
Albumin 3.0 g/dl (3.5-5.0) L 06/29/23 17:45
Physical Exam
General: Awake, Alert, No Distress and Nontoxic
HEENT: PERRL, EOMI, Anicteric, Conjunctivae Clear, Ear/Nose Intact, Hearing Normal and Oropharynx Clear/Moist
Respiratory: Clear and Nonlabored Respirations
Cardiac: S1/S2, Regular Rate/Rhythm and No Edema
Breast: N/A
Abdomen: Soft, Nontender, Nondistended and Normal Bowel Sounds
Rectal: Deferred by Provider
Genito-urinary: Bloody Urine
Musculoskeletal: No Clubbing, No Cyanosis and No Edema
Skin: No Rash
Neuro: Nonfocal/Grossly Intact
Psych: Mood/afflect pleasant
Data Reviewed
-
Radiology: Report Reviewed by me (abd xray and pelvis xray)
CT Scan: Report Reviewed by me (head CT with no acute abnormality)
Labs: Labs Reviewed by me and Discussed with Patient
Old Records: Reviewed
Assessment/Plan
-
Assessment:
LUIS ANGEL now on HD, nonoliguric. HD TThS in hospital
Anemia
Cdiff colitis
hematuria
Epidural/psoas abscess
chronic R heel wound
Plan:
- plan for HD tomorrow per TThS schedule
- likely will recieve transfusion during HD tomorrow
- afterwards, we will start SARTHAK. would hold off on iron loading in the setting of recent infections and bacteremia
[2023-06-30 15:01] LABS: Glucose - Point of Care 68 mg/dl (70-99)
--- NOTE | 2023-06-30 15:26 | CM ---
Reviewed the chart notes and spoke with the patient the bedside. The patient was recently at [facility] and discharged to [facility]. The patient receives HD . Prior to hospitalizations, patient resided with his sister in a
once story home for approximately two months. The patient priori to hospitalizations used crutches. Per notes, the patient will require cefazolin for planned course of 8 weeks. CM continues to be available to patient/family and is monitoring
medical plan for needs at discharge.
Plan: Discharge back to [facility] when medically stable. Referral sent via [facility].
[2023-06-30 15:51] LABS: Glucose - Point of Care 64 mg/dl (70-99)
[2023-06-30] MEDS: DEXTROSE 50% SYRINGE 12.5 GRAMS IV (15:57)
[2023-06-30] MEDS: D5/0.9% SODIUM CHLORIDE 1000 IV (16:02)
[2023-06-30 16:16] LABS: Glucose - Point of Care 84 mg/dl (70-99)
--- NOTE | 2023-06-30 17:21 | PTCARENOTE ---
Pt received 1 unit of PRBC's during shift and tolerated it well. Vitals stable throughout transfusion.
[2023-06-30 18:18] LABS: Glucose - Point of Care 91 mg/dl (70-99)
[2023-06-30] MEDS: DAKIN'S SOLUTION 0.125% 1/4 STRENGTH 473 ML TOPICAL (21:05)
[2023-06-30 21:25] LABS: Glucose - Point of Care 102 mg/dl (70-99)
[2023-06-30] MEDS: DESITIN MAXIMUM STRENGTH PASTE 1 APPLIC TOPICAL (21:52)
[2023-06-30] MEDS: ROXICODONE 10 MG PO (21:59)
[2023-07-01 03:22] LABS: Glucose - Point of Care 82 mg/dl (70-99)
[2023-07-01] MEDS: ROXICODONE 10 MG PO ×2 (03:55→16:53)
[2023-07-01 06:00] VITALS: BMI 28.4
[2023-07-01] MEDS: D5/0.9% SODIUM CHLORIDE 1000 IV (06:02)
[2023-07-01] MEDS: FIRVANQ 125 MG PO ×4 (06:02→23:01)
[2023-07-01 06:37] LABS: Hematocrit 27.2 % (39.0-52.0); Hemoglobin 8.4 g/dL (13.0-18.0); Mean Corp Hgb Conc. 30.9 g/dL (33.0-37.0); Mean Corpuscular Volume 90.7 fL (80.0-94.0); Mean Platelet Volume 8.9 fL (7.4-10.4); Platelet Count 479 10^3/uL (130-400); Red Cell Dist. Width 14.5 % (11.5-14.5); White Blood Cell Count 9.6 10^3/uL (4.8-10.8)
[2023-07-01 07:05] LABS: Blood Urea Nitrogen 46 mg/dl (9-20); Calcium 8.8 mg/dl (8.4-10.2); Carbon Dioxide 25 mmol/L (22-30); Chloride 99 mmol/L (98-107); Estimated Creatinine Clearance 15 ml/min; Glucose 74 mg/dl (70-99); Potassium 4.7 mmol/L (3.5-5.1); Sodium 135 mmol/L (135-145); eGFR 10.73
[2023-07-01 07:20] VITALS: BP 138/42
[2023-07-01 08:00] LABS: Glucose - Point of Care 81 mg/dl (70-99)
[2023-07-01] MEDS: DESITIN MAXIMUM STRENGTH PASTE 1 APPLIC TOPICAL ×2 (08:33→21:06)
[2023-07-01] MEDS: DAKIN'S SOLUTION 0.125% 1/4 STRENGTH 1 ML TOPICAL (08:33)
[2023-07-01] MEDS: LOPRESSOR PO (08:33)
[2023-07-01] MEDS: NORVASC PO (08:34)
[2023-07-01] MEDS: TYLENOL 1000 MG PO ×3 (08:40→21:56)
[2023-07-01] MEDS: LIDOCAINE 4% PATCH 1 PATCH TOPICAL (08:40)
[2023-07-01 09:22] LABS: Glycohemoglobin (HgbA1c) 5.9 % (4.0-5.6)
--- NOTE | 2023-07-01 09:47 | W.PN.HOSP.TC ---
Addendum entered and electronically signed by Tru Wray MD 07/01/23 14:18:
Add on to diagnosis list;
Sepsis - POA
Chronic pain and narcotic dependance
Toxic metabolic encephalopathy - improved
Original Note:
Today's Communication/Plan
-
duplicate records received
encourage oral intake
stop d5/ns if BG persistently > 100
maintain on abx
Assessment / Plan
Assessment / Plan
1. C diff colitis
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
-Patient having liquid stool overnight.
-Mary score 1 .
-starting on oral vancomycin for 10 days
-Maintain probiotics
-ID following and help appreciated.
2. L2-L3 epidural abscess/discitis
Psoas abscess
-S/p lumbar laminectomy and drainage on 06/12 at [facility]
-culture data requested - records obtained but correct records have not been sent.
-Repeat blood culture ordered
-maintain on ancef 2g and 3g Sa after HD
3. LUIS ANGEL on HD
Suspected Post infectious GN vs ATN
-Patient required brief dialysis support in April
-Patient and [facility] in May patient had recurrence of renal failure necessitating dialysis support
-Patient currently on Friday dialysis routine
-Nephro consulted for further help
4. Hematuria
- callahan catheter in place
- on Plavix/Eliquis, urine clearing up
5. Acute normocytic anemia
-Suspecting anemia secondary to renal disease
-Hbg ~8 today after 1 u prbc
-baseline 7-8
-will get EPO injection
6. Chronic Right heel wound
PAD with h/o RLE art stent
-Per limited records available, patient have repeated debridement by vascular surgeon at [facility]
-No MRI of right foot per records review.
-reconsignment clerk consulted and following
7. Hypoglycemia
-hold glipizide/metformin
-on slow d5/ns, judicious use with need of HD
DVT PPX - eliquis
Full code
Anticipated Discharge: > 48 hours
Subjective/Interval History
-
Date of Service: July 01, 2023
afebrile in night
Still have liquid bowel movements
Denies abdominal pain nausea vomiting
Objective Data
-
Labs:
Laboratory Results
07/01/23
06:09
WBC 9.6
Hgb 8.4 L
Hct 27.2 L
Plt Count 479 H
Sodium 135
Potassium 4.7
Chloride 99
Carbon Dioxide 25
BUN 46 H
Creatinine 5.5 H*
Glucose 74
Calcium 8.8
Vital Signs:
Vital Signs
Temp Pulse Resp BP Pulse Ox
98.0 F 68 18 138/42 97
07/01/23 07:20 07/01/23 07:20 07/01/23 07:20 07/01/23 07:20 07/01/23 07:20
I&O
06/30/23 07/01/23 07/02/23
06:59 06:59 06:59
Intake Total 480 / 480 1080 / 1080
Output Total 675 / 675 725 / 725
Balance -195 / -195 355 / 355
Review of Systems
-
Respiratory: Reports No Symptoms
Cardiac: Reports No Symptoms
Abdomen/GI: Reports No Symptoms
Physical Exam
-
General: No Apparent Distress and Comfortable
HEENT: Negative Oxygen
Respiratory: Clear to Auscultation
Cardiac: Regular Rhythm and S1/S2; Negative Murmur
GI: Soft, Nontender, Nondistended and Normal Bowel Sounds
Musculoskeletal: No Edema and Other (Right heel dressing in place)
Neuro: Awake, Alert, Oriented, No Motor Deficits and Nonfocal/Grossly Intact
Psych: Calm
[2023-07-01 09:49] LABS: Hepatitis B Surface Antigen Negative (Negative)
[2023-07-01] MEDS: MANNITOL 12.5 GRAMS IV (10:00)
[2023-07-01] MEDS: FLEXBUMIN 25% FOR HEMODIALYSIS 12.5 GRAMS IV (10:09)
--- NOTE | 2023-07-01 10:27 | W.PN.ID1 ---
Date of Service
Date of Service: July 01, 2023
Today's Communication
continue current antibiotics
Assessment / Plan
L2-L3 and possibly L3-L4 Discitis, Osteomyelitis
Epidural abscess from L1- sacrum, s/p laminectomy 06/12
Psoas Abscesses bilaterally
- s/p drain placement 06/11
MSSA Bacteremia
C difficile
LUIS ANGEL: ATN vs PIGN
- blood cultures x2 in progress
- mrsa screen pending
- AXR
- will follow up additional records; fax machine was [address] printing during rounds
- continue cefazolin for planned course - 8 weeks - awaiting additional records to clarify dates, treating MD etc
- agree with oral vancomycin x 10 days, then would continue oral vanc 125 mg PO BID while on cefazolin
- stopped protonix 06/29 (increases risk of relapse)
- probiotics while on cefazolin
- note prn cathartics, none scheduled - not needed at this time
- enhanced precautions
Chronic Pressure Wound Heel
- wound care
sinusitis on the CT head
- no symptoms - not clinically relevant
Binge Alcohol abuse
- previously endorsing about 15 shots whiskey (mostly on the weekends)
Chief Complaint
-: Bacteremia and Other (Discitis, Osteomyelitis Epidural abscess)
Subjective / Review of Systems
afebrile
bp stable
1/4 of the requested records was available at the time of rounds (fax machine slowly printing it) will follow up again tomorrow
no complaints
on HD
resolved leukocytosis
blood cultures no growth to date
K 4.7
1 BM - loose thus far today
Vital Signs / Physical Exam
Vital Signs
Vital Signs
Temp Pulse Resp BP Pulse Ox
98.0 F 68 18 138/42 97
07/01/23 07:20 05/14/24 07:20 07/01/23 07:20 07/01/23 07:20 07/01/23 07:20
Physical Exam
Constitutional: No Acute Distress
Cardiovascular: Regular Rate and S1/S2; Negative Murmur or Rub
Pulmonary: Clear and Symmetric; Negative Wheezes or Rales
Gastrointestinal: Soft, Non Tender, Non Distended and Normal Bowel Sounds
Skin: Warm and Dry; Negative Rash or Jaundice
Objective Data
Lab Data
Lab Results
07/01/23 06:09
07/01/23 06:09
Estimated Creat Clear 15 ml/min 07/01/23 06:09
Total Bilirubin 0.5 mg/dl (0.2-1.3) 06/29/23 17:45
AST 18 U/L (17-59) 06/29/23 17:45
ALT < 10 U/L (0-50) 06/29/23 17:45
Alkaline Phosphatase 137 U/L (38-126) H 06/29/23 17:45
Most recent labs reviewed.
Micro Results:
06/30/23 10:13 Blood Culture - Preliminary
Blood/Venous No Growth in 24 hours- Final report to follow
06/29/23 19:38 Urine Culture - Final
Urine NO GROWTH
06/29/23 19:38 Salmonella/Shigella Culture - Pending
Feces/Stool Campylobacter Culture - Pending
Shiga Toxin Test - Pending
06/30/23 01:17 MRSA Screen - Final
Nose No Methicillin Resistant Staphylococcus aureus isolated.
06/30/23 07:44 Blood Culture - Preliminary
Blood/Venous No Growth in 24 hours- Final report to follow
06/29/23 19:38 C. difficile GDH Antigen & Toxins - Final
Feces/Stool Toxigenic C.difficile Positive
[2023-07-01] MEDS: VITAMIN D3 (cholecalciferol) 25 MCG PO (11:37)
[2023-07-01] MEDS: LOW STRENGTH ASPIRIN 81 MG PO (11:37)
[2023-07-01] MEDS: ELIQUIS 2.5 MG PO ×2 (11:37→21:05)
[2023-07-01] MEDS: VISBIOME 2 CAP PO (11:37)
[2023-07-01] MEDS: PLAVIX 75 MG PO (11:37)
[2023-07-01] MEDS: ANCEF 10 IV (11:37)
[2023-07-01 11:42] LABS: Glucose - Point of Care 106 mg/dl (70-99)
--- NOTE | 2023-07-01 13:44 | PN.CDI ---
CDI
- -
CDI:
Physician Documentation Request
Admit Date: 06/29/23 21:49
Dear Doctor Nils,
Please review the following and provide your response in the progress notes.
Clinical Indicators:
Pt admitted with Cdiff / Pt currently on -Currently on IV Ancef for lumbar osteomyelitis/epidural abscess 8 week course
Documented per ID consult, ' wbc on arrival 15.9 ....L shift is noted, ...'
On admission WBC 15.9, HR 111/Pt on Vancomycin also for CDIFF
Please clarify which of the following most accurately describes the status of the patient's infection:
Sepsis-POA
- Systemic manifestations of infection, with 2 or more SIRS criteria which include:
- Fever >100.4 degrees F or hypothermia < 96.8 degrees F
- Leukocytosis - WBC > 12,000 or leukopenia - WBC < 4,000 or > 10% bands
- Tachycardia > 90 beats per minute
- Tachypnea - RR > 20 breaths per minute or PaCO2 , 32mmHg
Source: Merck Manual 2013
CDIFF only , Without Systemic Illness
Other
Use of terms such as suspected, likely, concern for, or probable (associated with a specific diagnosis that is being evaluated, monitored, or treated as if it exists) are acceptable and can be coded in the inpatient setting, when documented at the
time of discharge.
Thank you,
Katia Barrios RN
CDI Specialist
[place] [facility]
Please use your independent medical judgment in providing your response.
--- NOTE | 2023-07-01 13:48 | PN.CDI ---
CDI
- -
CDI:
Physician Documentation Request
Admit Date: 06/29/23 21:49
Dear Doctor Nils,
Please review the following and provide your response in the progress notes.
Clinical Indicators:
Pt admitted with CDIFF
Documented per H&P , ' Chronic pain on opioids..'
Per Home Meds oxycodone 10 mg tablet 10 mg PO Q6H PRN severe pain
Pt home medications includes Oxycodone. Please clarify if there is a diagnosis associated with the above medication usage.
Opioid dependence, continuous/daily use.
Opioid dependence, intermittent/not daily use
Other
Use of terms such as suspected, likely, concern for, or probable (associated with a specific diagnosis that is being evaluated, monitored, or treated as if it exists) are acceptable and can be coded in the inpatient setting, when documented at the
time of discharge.
Thank you,
Katia Barrios RN
CDI Specialist
[place] [facility]
Please use your independent medical judgment in providing your response.
--- NOTE | 2023-07-01 13:50 | W.PN.NEPH.HD ---
Assessment
-
- hungry on HD
- otherwise doing well
Progress Note - Hemodialysis
-
Date of Service: July 01, 2023
Duration: 30 minutes and 3 hours
Potassium Bath: 3
Calcium Bath: 2.5
Opti-Dialyzer: 160
Ultrafiltration: Other
Blood Flow: 400
Dialysate Flow: 600
--- NOTE | 2023-07-01 13:58 | PN.CDI ---
CDI
- -
CDI:
Physician Documentation Request
Admit Date: 06/29/23 21:49
Dear Doctor Nils,
Please review the following and provide your response in the progress notes.
Clinical Indicators:
Pt admitted with Cdiff /ATN on HD / L2-L3 epidural abscess/discitis/ Psoas abscess on 8 weeks of IV abx
Documented per ED, ' He is intermittently confused... alert and oriented to person place, confused as to events....'
Documented per H&P,' comes in confusion...Patient was confused and could not provide further history. He has a history of metabolic encephalopathy....'
Patient care note 06/29, ' Patient able to answer all orientation questions correctly, but confused conversation at times..'
Based on the above, could you clarify in the Progress Notes and Discharge Summary which, if any of the following, is the most likely etiology of the confusion/altered mental status.
Metabolic encephalopathy
Confusion only
Other
Use of terms such as suspected, likely, concern for, or probable (associated with a specific diagnosis that is being evaluated, monitored, or treated as if it exists) are acceptable and can be coded in the inpatient setting, when documented at the
time of discharge.
Thank you,
Katia Barrios RN
CDI Specialist
[place] [facility]
Please use your independent medical judgment in providing your response.
[2023-07-01 15:15] VITALS: BP 135/65
[2023-07-01 16:45] LABS: Glucose - Point of Care 127 mg/dl (70-99)
[2023-07-01] MEDS: D5/0.9% SODIUM CHLORIDE IV (16:50)
[2023-07-01] MEDS: LOPRESSOR 25 MG PO (21:05)
[2023-07-01] MEDS: DAKIN'S SOLUTION 0.125% 1/4 STRENGTH 473 ML TOPICAL (21:06)
[2023-07-01 21:19] LABS: Glucose - Point of Care 131 mg/dl (70-99)
[2023-07-01 23:20] VITALS: BP 131/65
--- NOTE | 2023-07-02 03:23 | DOWNTIME ---
There was a [employer] Client [employer]ocker Hand Downtime on 07/01/2023 from 0100 to 07/02/2023 at 0300. Downtime documentation of patient's care, including medication administrations, has been reconciled in the electronic record per guidelines. Refer to the
patient's paper chart under the miscellaneous tab to see printed paper medication records and downtime forms.
[2023-07-02] MEDS: ROXICODONE 10 MG PO ×2 (05:02→22:42)
[2023-07-02] MEDS: FIRVANQ 125 MG PO ×3 (05:02→16:54)
[2023-07-02 05:16] VITALS: BMI 28.2
[2023-07-02 05:57] LABS: Hematocrit 23.3 % (39.0-52.0); Hemoglobin 7.5 g/dL (13.0-18.0); Mean Corp Hgb Conc. 32.2 g/dL (33.0-37.0); Mean Corpuscular Hgb 28.5 pg (27.0-31.0); Mean Corpuscular Volume 88.6 fL (80.0-94.0); Platelet Count 443 10^3/uL (130-400); Red Blood Cell Count 2.63 10^6/uL (4.70-6.10); Red Cell Dist. Width 14.4 % (11.5-14.5); White Blood Cell Count 7.9 10^3/uL (4.8-10.8)
[2023-07-02 06:25] LABS: Blood Urea Nitrogen 28 mg/dl (9-20); Calcium 8.2 mg/dl (8.4-10.2); Carbon Dioxide 27 mmol/L (22-30); Chloride 99 mmol/L (98-107); Estimated Creatinine Clearance 24 ml/min; Glucose 76 mg/dl (70-99); Potassium 4.1 mmol/L (3.5-5.1); Sodium 134 mmol/L (135-145); eGFR 18.46
[2023-07-02 07:20] VITALS: BP 123/63
[2023-07-02] MEDS: DESITIN MAXIMUM STRENGTH PASTE 1 APPLIC TOPICAL ×2 (07:45→20:17)
[2023-07-02] MEDS: DAKIN'S SOLUTION 0.125% 1/4 STRENGTH 1 ML TOPICAL ×2 (07:45→20:17)
[2023-07-02] MEDS: PLAVIX 75 MG PO (07:46)
[2023-07-02] MEDS: LOW STRENGTH ASPIRIN 81 MG PO (07:46)
[2023-07-02] MEDS: TYLENOL 1000 MG PO ×3 (07:46→22:43)
[2023-07-02] MEDS: VISBIOME 2 CAP PO (07:46)
[2023-07-02] MEDS: LIDOCAINE 4% PATCH 1 PATCH TOPICAL (07:46)
[2023-07-02] MEDS: ELIQUIS 2.5 MG PO ×2 (07:46→20:17)
[2023-07-02] MEDS: VITAMIN D3 (cholecalciferol) 25 MCG PO (07:46)
[2023-07-02 07:51] LABS: Glucose - Point of Care 104 mg/dl (70-99)
[2023-07-02] MEDS: NORVASC 10 MG PO (07:53)
[2023-07-02] MEDS: LOPRESSOR 25 MG PO ×2 (07:54→20:16)
--- NOTE | 2023-07-02 09:41 | W.PN.NEPH.PH ---
Today's Communication / Plan
-
Dialysis tomorrow
Assessment/Plan
-
Assessment:
LUIS ANGEL now on HD, nonoliguric. HD TThS in hospital
Anemia
Cdiff colitis
hematuria
Epidural/psoas abscess
chronic R heel wound
Plan:
- plan for HD tomorrow per TThS schedule
- likely will recieve transfusion during HD tomorrow if hemoglobin continues to drop
-Maintain cefazolin for possible lumbar osteomyelitis and/or discitis
-
-
Date of Service: July 02, 2023
CC / HPI / ROS
-
Chief Complaint:
ESRD
History of Present Illness:
Remains on Friday schedule for end-stage renal disease
hemodynamically stable
remains on cefazolin and oral vancomycin
Review of Systems:
no fevers
Labs
-
Labs:
WBC 7.9 10^3/uL (4.8-10.8) 07/02/23 04:44
RBC 2.63 10^6/uL (4.70-6.10) L 07/02/23 04:44
Hgb 7.5 g/dL (13.0-18.0) L 07/02/23 04:44
Hct 23.3 % (39.0-52.0) L 07/02/23 04:44
Plt Count 443 10^3/uL (130-400) H 07/02/23 04:44
Sodium 134 mmol/L (135-145) L 07/02/23 04:44
Potassium 4.1 mmol/L (3.5-5.1) 07/02/23 04:44
Chloride 99 mmol/L (98-107) 07/02/23 04:44
Carbon Dioxide 27 mmol/L (22-30) 07/02/23 04:44
BUN 28 mg/dl (9-20) H 07/02/23 04:44
Creatinine 3.5 mg/dL (0.7-1.3) H 07/02/23 04:44
eGFR 18.46 07/02/23 04:44
Glucose 76 mg/dl (70-99) 07/02/23 04:44
Calcium 8.2 mg/dl (8.4-10.2) L 07/02/23 04:44
Albumin 3.0 g/dl (3.5-5.0) L 06/29/23 17:45
Physical Exam
-
Vital Signs:
Vital Signs
Temp Pulse Resp BP Pulse Ox
98.5 F 96 18 123/63 94
07/02/23 07:20 07/02/23 07:53 07/02/23 07:20 07/02/23 07:53 07/02/23 07:20
Cardiovascular:: Regular rate and rhythm
[2023-07-02 11:45] LABS: Glucose - Point of Care 129 mg/dl (70-99)
--- NOTE | 2023-07-02 12:25 | PTCARENOTE ---
Patient had episode of blood tinged stool. Does appear patient has external hemorrhoid's. made aware.
--- NOTE | 2023-07-02 12:28 | W.PN.HOSP.TC ---
Today's Communication/Plan
-
continue current rx
possible discharge in 24 hrs
Assessment / Plan
Assessment / Plan
1. C diff colitis
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
-Patient having liquid stool overnight.
-Mary score 1 .
-starting on oral vancomycin for 10 days
-Maintain probiotics
-ID following and help appreciated.
-3 liquid BM reported in night. some blood in stool , hemorrohidal in nature
2. L2-L3 epidural abscess/discitis
Psoas abscess
-S/p lumbar laminectomy and drainage on 06/12 at [facility]
-culture data requested - records obtained but correct records have not been sent.
-Repeat blood culture ordered
-maintain on ancef 2g and 3g Sa after HD
3. LUIS ANGEL on HD
Suspected Post infectious GN vs ATN
-Patient required brief dialysis support in April
-Patient and [facility] in May patient had recurrence of renal failure necessitating dialysis support
-Patient currently on Friday dialysis routine
-Nephro consulted for further help
4. Hematuria - resolved
Chronic indwelling callahan
- callahan catheter in place
- on Plavix/Eliquis
5. Acute normocytic anemia
-Suspecting anemia secondary to renal disease
-Hbg ~8 today after 1 u prbc
-baseline 7-8
-will get EPO injection
6. Chronic Right heel wound
PAD with h/o RLE art stent
-Per limited records available, patient have repeated debridement by vascular surgeon at [facility]
-No MRI of right foot per records review.
-radiologic electronic specialist consulted and following
7. Hypoglycemia - resolved
NIDDM
-hold glipizide/metformin
-stop further D5/NS
-Maintain on ISS
DVT PPX - eliquis
Full code
Anticipated Discharge: Within 24 hours
Subjective/Interval History
-
Date of Service: July 02, 2023
reported 3 liquid BM overnight
no nausea/vomiting
afebrile
Objective Data
-
Labs:
Laboratory Results
07/02/23
04:44
WBC 7.9
Hgb 7.5 L
Hct 23.3 L
Plt Count 443 H
Sodium 134 L
Potassium 4.1
Chloride 99
Carbon Dioxide 27
BUN 28 H
Creatinine 3.5 H
Glucose 76
Calcium 8.2 L
Vital Signs:
Vital Signs
Temp Pulse Resp BP Pulse Ox
98.5 F 96 18 123/63 94
07/02/23 07:20 07/02/23 07:53 07/02/23 07:20 07/02/23 07:53 07/02/23 07:20
I&O
07/01/23 07/02/23 07/03/23
06:59 06:59 06:59
Intake Total 1080 / 1080 840 / 840
Output Total 725 / 725 380 / 380
Balance 355 / 355 460 / 460
Review of Systems
-
Respiratory: Reports No Symptoms
Cardiac: Reports No Symptoms
Abdomen/GI: Reports No Symptoms
Physical Exam
-
General: No Apparent Distress and Comfortable
HEENT: Negative Oxygen
Respiratory: Clear to Auscultation
Cardiac: Regular Rhythm and S1/S2; Negative Murmur
GI: Soft, Nontender, Nondistended and Normal Bowel Sounds
Musculoskeletal: No Edema and Other (Right heel dressing in place)
Neuro: Awake, Alert, Oriented, No Motor Deficits and Nonfocal/Grossly Intact
Psych: Calm
--- NOTE | 2023-07-02 13:25 | CM ---
Reviewed the chart notes. Per ID, plan is for continue cefazolin for planned course - 8 weeks. CM continues to be available to patient/family and is monitoring medical plan for needs at discharge.
Plan: Discharge back to [facility] when medically stable. No precert required. Received HD .
Call report to: [phone]
Fax report to: [phone]
--- NOTE | 2023-07-02 14:30 | W.PN.ID1 ---
Date of Service
Date of Service: July 02, 2023
Today's Communication
- continue cefazolin for planned course - 8 weeks - through 08/09/23
- agree with oral vancomycin x 10 days, then would continue oral vanc 125 mg PO BID while on cefazolin
stable for dc from ID perspective
Assessment / Plan
L2-L3 and possibly L3-L4 Discitis, Osteomyelitis
Epidural abscess from L1- sacrum, s/p laminectomy 06/12
Psoas Abscesses bilaterally
- s/p drain placement 06/11
MSSA Bacteremia
C difficile
LUIS ANGEL: ATN vs PIGN
- blood cultures x2 in progress no growth to date
- continue cefazolin for planned course - 8 weeks - through 08/09/23
- agree with oral vancomycin x 10 days, then would continue oral vanc 125 mg PO BID while on cefazolin
- stopped protonix 06/29 (increases risk of relapse)
- probiotics while on cefazolin
- note prn cathartics, none scheduled - not needed at this time
- enhanced precautions
- message left for Dr [facility] [phone]
Chief Complaint
-: Bacteremia and Other (Discitis, Osteomyelitis Epidural abscess)
Subjective / Review of Systems
afebrile
bp stable
without leukocytosis
cr remains elevated
blood cultures no growth to date
reviewed the 200+ pages of records from [facility] on the chart - a few pages at the end of the first set appear to be missing. Notable for the following:
03/19 diabetic foot wound - debridement almost to calcaneus on post op MRI; no osteo. OR culture: gram stain GNR, GPCs; culture PSA, K oxytoca, MSSE, GBS; on levofloxacin. A1c this visit 9.1% was not on medications for Dm.
2/ R common fem:post tib artery via PTFE
Seen by Dr Oamar ID and switched to cefe/metro
He was discharged without antibiotics
04/[address] with Dr Ortiz - worsening heel wound noted with exposed bone at wound vac change, erythema over bypass site, heel with white slough, malodorous, and readmitted, leukocytosis noted, blood cx and superficial wound swab obtained,
started zosyn and vancomycin, ID consulted.
Saw Dr Joe LEW. Office number [phone].
Saw Dr Olvera Plastic surgery - no plans for inpatient reconstruction
04/22 LUIS ANGEL - presumed due to vanc nephrotoxicity
04/23 discharged 2with keflex 500 mg PO QID x3 days and levofloxacin 750 mg PO Qday x3 days
06/09 readmitted for sudden onset of back pain with radiation to the BL LE with paraspinal tenderness, fever, hyponatremia, CT with epidural abscess/diskitis, MRI spine with concern for Psoas abscess (limited study), MSSA bacteremia; initially on
vanc/cefepime when MSSA IDd then started on cefazolin. CRP 36, ESR 73. Note that Cr on presentatoin was 4.1 from baseline on 0.8. Nephrology with concern for AIN vs PIGN. 06/09 blood cultures with MSSA in / bottles MecA neg. Neuroradiology
with concern for BL psoas abscesses. Right heel wound on admission without signs of infection. TTE ordered.
06/12 acute lower extremity dysfunction, taken to the OR for decompression, purulent fluid in epidural space, cultured
cefazolin to be continued until 08/09/23
Vital Signs / Physical Exam
Vital Signs
Vital Signs
Temp Pulse Resp BP Pulse Ox
98.5 F 96 18 123/63 94
07/02/23 07:20 07/02/23 07:53 07/02/23 07:20 07/02/23 07:53 07/02/23 07:20
Physical Exam
Constitutional: No Acute Distress
Cardiovascular: Regular Rate and S1/S2; Negative Murmur or Rub
Pulmonary: Clear and Symmetric; Negative Wheezes or Rales
Gastrointestinal: Soft, Non Tender, Non Distended and Normal Bowel Sounds
Skin: Warm and Dry; Negative Rash or Jaundice
Wound: Other (RLE surgical site of vascular graft fully healed)
Neurological: Awake
Objective Data
Lab Data
Lab Results
07/02/23 04:44
07/02/23 04:44
Estimated Creat Clear 24 ml/min 07/02/23 04:44
Total Bilirubin 0.5 mg/dl (0.2-1.3) 06/29/23 17:45
AST 18 U/L (17-59) 06/29/23 17:45
ALT < 10 U/L (0-50) 06/29/23 17:45
Alkaline Phosphatase 137 U/L (38-126) H 06/29/23 17:45
Most recent labs reviewed.
Micro Results:
06/29/23 19:38 Salmonella/Shigella Culture - Preliminary
Feces/Stool Culture in Progress
Campylobacter Culture - Final
No Campylobacter species isolated.
Shiga Toxin Test - Pending
06/30/23 10:13 Blood Culture - Preliminary
Blood/Venous No Growth in 48 hours- Final report to follow
06/30/23 07:44 Blood Culture - Preliminary
Blood/Venous No Growth in 48 hours- Final report to follow
06/29/23 19:38 Urine Culture - Final
Urine NO GROWTH
06/30/23 01:17 MRSA Screen - Final
Nose No Methicillin Resistant Staphylococcus aureus isolated.
06/29/23 19:38 C. difficile GDH Antigen & Toxins - Final
Feces/Stool Toxigenic C.difficile Positive
[2023-07-02 15:20] VITALS: BP 138/70
--- NOTE | 2023-07-02 15:50 | CM ---
Reviewed the chart notes and spoke with the patient at the bedside. IMM signed and placed on the chart.
[2023-07-02 16:52] LABS: Glucose - Point of Care 101 mg/dl (70-99)
[2023-07-02 22:07] LABS: Glucose - Point of Care 208 mg/dl (70-99)
[2023-07-02 23:39] VITALS: BP 141/71
[2023-07-03] MEDS: FIRVANQ 125 MG PO ×4 (00:15→17:04)
[2023-07-03 05:20] VITALS: BMI 28.4
[2023-07-03 07:00] VITALS: BP 134/70
[2023-07-03 07:57] LABS: Hematocrit 22.5 % (39.0-52.0); Mean Corp Hgb Conc. 31.1 g/dL (33.0-37.0); Mean Corpuscular Hgb 27.8 pg (27.0-31.0); Mean Corpuscular Volume 89.3 fL (80.0-94.0); Mean Platelet Volume 8.8 fL (7.4-10.4); Platelet Count 425 10^3/uL (130-400); Red Blood Cell Count 2.52 10^6/uL (4.70-6.10); Red Cell Dist. Width 14.3 % (11.5-14.5); White Blood Cell Count 7.4 10^3/uL (4.8-10.8)
[2023-07-03 08:14] LABS: Blood Urea Nitrogen 38 mg/dl (9-20); Calcium 8.3 mg/dl (8.4-10.2); Carbon Dioxide 27 mmol/L (22-30); Chloride 98 mmol/L (98-107); Estimated Creatinine Clearance 17 ml/min; Glucose 85 mg/dl (70-99); Sodium 134 mmol/L (135-145); eGFR 11.75
[2023-07-03] MEDS: RETACRIT 10000 UNITS IV (09:00)
--- NOTE | 2023-07-03 09:01 | W.PN.NEPH.HD ---
Assessment
-
Patient seen on dialysis systolic blood pressure 146 at current u/f
Remains on cefazolin for possible discitis and/or osteomyelitis
Maintained on oral vancomycin for C. difficile
Progress Note - Hemodialysis
-
Date of Service: July 03, 2023
Duration: 30 minutes and 3 hours
Potassium Bath: 3
Calcium Bath: 2.5
Opti-Dialyzer: 160
Ultrafiltration: Other (2kg)
Blood Flow: 400
Dialysate Flow: 600
Heparin: none
EPO: 10K
[2023-07-03] MEDS: LIDOCAINE 4% PATCH 1 PATCH TOPICAL (09:56)
[2023-07-03] MEDS: TYLENOL 1000 MG PO ×3 (09:56→22:23)
[2023-07-03] MEDS: LOPRESSOR PO (09:57)
[2023-07-03] MEDS: NORVASC PO (09:57)
[2023-07-03] MEDS: LOW STRENGTH ASPIRIN 81 MG PO (09:58)
[2023-07-03] MEDS: PLAVIX 75 MG PO (09:58)
[2023-07-03] MEDS: VISBIOME 2 CAP PO (09:58)
[2023-07-03] MEDS: ELIQUIS 2.5 MG PO ×2 (09:58→20:28)
[2023-07-03] MEDS: VITAMIN D3 (cholecalciferol) 25 MCG PO (09:58)
[2023-07-03] MEDS: DESITIN MAXIMUM STRENGTH PASTE 1 APPLIC TOPICAL ×2 (10:02→20:30)
[2023-07-03] MEDS: DAKIN'S SOLUTION 0.125% 1/4 STRENGTH 1 ML TOPICAL (10:02)
[2023-07-03 11:34] LABS: Glucose - Point of Care 91 mg/dl (70-99)
[2023-07-03] MEDS: HEPARIN 4300 UNITS INTRACATH (11:37)
[2023-07-03] MEDS: ANCEF 10 IV (12:05)
--- NOTE | 2023-07-03 12:30 | CM ---
Addendum entered by Renae Thorne RN 07/03/23 15:29:
Discharge on hold until tomorrow due to patient requiring isolation room. Attending, RN and community coordinator updated.
Addendum entered by Renae Thorne RN 07/03/23 13:10:
Amy Admissions Liaison with [facility] informed of discharge.
Original Note:
Plan: Discharge back to [facility] when medically stable. No precert required. Received .
Call report to: [phone]
Fax report to: [phone]
Medical and transport forms on chart.
--- NOTE | 2023-07-03 13:31 | W.PN.HOSP.TC ---
Today's Communication/Plan
-
d/c SNF after blood transfusion
Assessment / Plan
Assessment / Plan
1. C diff colitis
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
-Patient having liquid stool overnight.
-Mary score 1 .
-Maintain probiotics
-ID following and help appreciated.
- patient to finish 10 days of 4 times daily vancomycin followed by twice daily dosing until on Ancef.
2. L2-L3 epidural abscess/discitis
Psoas abscess
-S/p lumbar laminectomy and drainage on 06/12 at [facility]
-culture data requested - records obtained but correct records have not been sent.
-Repeat blood culture ordered
-maintain on ancef 2g and 3g Sa after HD
-Patient will need to follow-up with [facility] post discharge
3. LUIS ANGEL on HD
Suspected Post infectious GN vs ATN
-Patient required brief dialysis support in April
-Patient and [facility] in May patient had recurrence of renal failure necessitating dialysis support
-Patient currently on Friday dialysis routine
-Nephro consulted for further help
4. Hematuria - resolved
Chronic indwelling callahan
- callahan catheter in place
- on Plavix/Eliquis
5. Acute normocytic anemia
-Suspecting anemia secondary to renal disease
-Hbg ~8 today after 1 u prbc
-baseline 7-8
-will get EPO injection
-2nd u of PRBC ordered for hbg 7
6. Chronic Right heel wound
PAD with h/o RLE art stent
-Per limited records available, patient have repeated debridement by vascular surgeon at [facility]
-No MRI of right foot per records review.
-designer writer consulted and following
7. Hypoglycemia - resolved
NIDDM
-hold glipizide/metformin
-stop further D5/NS
-Maintain on ISS
DVT PPX - eliquis
Full code
More than 30 minutes spent in discharge including
Final examination of the patient
Summarizing hospital stay
Instructions for continuing care to all relevant caregivers
Preparation of discharge records, prescriptions, and referral forms
Total time spent (in minutes): 38 mins
Anticipated Discharge: Today
Subjective/Interval History
-
Date of Service: July 03, 2023
No new issues overnight
Still have diarrhea controlled
No abdominal pain nausea vomiting
Objective Data
-
Labs:
Laboratory Results
07/03/23
07:45
WBC 7.4
Hgb 7.0 L
Hct 22.5 L
Plt Count 425 H
Sodium 134 L
Potassium 4.0
Chloride 98
Carbon Dioxide 27
BUN 38 H
Creatinine 5.1 H*
Glucose 85
Calcium 8.3 L
Vital Signs:
Vital Signs
Temp Pulse Resp BP Pulse Ox
98.4 F 82 16 134/70 94
07/03/23 07:00 07/03/23 07:00 07/03/23 07:00 07/03/23 09:57 07/03/23 10:45
I&O
07/02/23 07/03/23 07/04/23
06:59 06:59 06:59
Intake Total 840 / 840 1320 / 1320
Output Total 380 / 380 250 / 250
Balance 460 / 460 1070 / 1070
Review of Systems
-
Respiratory: Reports No Symptoms
Cardiac: Reports No Symptoms
Abdomen/GI: Reports No Symptoms
Physical Exam
-
General: No Apparent Distress and Comfortable
HEENT: Negative Oxygen
Respiratory: Clear to Auscultation
Cardiac: Regular Rhythm and S1/S2; Negative Murmur
GI: Soft, Nontender, Nondistended and Normal Bowel Sounds
Musculoskeletal: No Edema and Other (Right heel dressing in place)
Neuro: Awake, Alert, Oriented, No Motor Deficits and Nonfocal/Grossly Intact
Psych: Calm
[2023-07-03 14:08] VITALS: BP 135/69
--- NOTE | 2023-07-03 14:14 | PTCARENOTE ---
pt received HD this AM with [facility]. 2kilos taken off during treatment. pt hgb came back at 7.4 this AM pt ordered one unit of PRBC. this was started at 1408, see TAR for proper charting. pt still having soft/loose stools but able to get on bedpan
with x1 assist. pt did not eat breakfast during HD but had 100% of his lunch. no sliding scale insulin needed per the parameters. see MAR for proper documentation. pt discharge this evening back to previous living facility. report to be called at a
later time
--- NOTE | 2023-07-03 14:15 | W.PN.ID1 ---
Date of Service
Date of Service: July 03, 2023
Today's Communication
stable for dc from ID perspective
Assessment / Plan
L2-L3 and possibly L3-L4 Discitis, Osteomyelitis
Epidural abscess from L1- sacrum, s/p laminectomy 06/12
Psoas Abscesses bilaterally
- s/p drain placement 06/11
MSSA Bacteremia
C difficile
LUIS ANGEL: ATN vs PIGN
- blood cultures x2 in progress no growth to date
- continue cefazolin for planned course - 8 weeks - through 08/09/23
- agree with oral vancomycin x 10 days, then would continue oral vanc 125 mg PO BID while on cefazolin - through 08/09/23
- stopped protonix 06/29 (increases risk of relapse)
- probiotics while on cefazolin
- note prn cathartics, none scheduled - not needed at this time
- enhanced precautions
Chief Complaint
-: C-diff
Subjective / Review of Systems
afebrile
bp stable
without leukocytosis
K normal
Vital Signs / Physical Exam
Vital Signs
Vital Signs
Temp Pulse Resp BP Pulse Ox
98.6 F 87 16 135/69 94
07/03/23 14:08 07/03/23 14:08 07/03/23 14:08 07/03/23 14:08 07/03/23 10:45
Physical Exam
Constitutional: No Acute Distress and Chronically Ill
Cardiovascular: Regular Rate
Pulmonary: Symmetric, Rales and Non Labored
Gastrointestinal: Non Distended
Skin: Dry; Negative Rash or Jaundice
Neurological: Awake
Objective Data
Lab Data
Lab Results
07/03/23 07:45
07/03/23 07:45
Estimated Creat Clear 17 ml/min 07/03/23 07:45
Total Bilirubin 0.5 mg/dl (0.2-1.3) 06/29/23 17:45
AST 18 U/L (17-59) 06/29/23 17:45
ALT < 10 U/L (0-50) 06/29/23 17:45
Alkaline Phosphatase 137 U/L (38-126) H 06/29/23 17:45
Most recent labs reviewed.
Micro Results:
06/30/23 10:13 Blood Culture - Preliminary
Blood/Venous No Growth in 72 hours- Final report to follow
06/29/23 19:38 Salmonella/Shigella Culture - Final
Feces/Stool No Salmonella, Shigella, Aeromonas or Plesiomonas species
isolated.
Campylobacter Culture - Final
No Campylobacter species isolated.
Shiga Toxin Test - Final
No E. coli Shiga Toxin 1 or 2 detected.
06/30/23 07:44 Blood Culture - Preliminary
Blood/Venous No Growth in 72 hours- Final report to follow
06/29/23 19:38 Urine Culture - Final
Urine NO GROWTH
06/30/23 01:17 MRSA Screen - Final
Nose No Methicillin Resistant Staphylococcus aureus isolated.
06/29/23 19:38 C. difficile GDH Antigen & Toxins - Final
Feces/Stool Toxigenic C.difficile Positive
[2023-07-03 14:25] VITALS: BP 135/68
[2023-07-03 14:48] VITALS: BP 135/68
[2023-07-03 16:47] LABS: Glucose - Point of Care 119 mg/dl (70-99)
[2023-07-03 17:08] VITALS: BP 137/67
[2023-07-03] MEDS: LOPRESSOR 25 MG PO (20:28)
[2023-07-03] MEDS: DAKIN'S SOLUTION 0.125% 1/4 STRENGTH 473 ML TOPICAL (20:30)
[2023-07-03 21:49] LABS: Glucose - Point of Care 199 mg/dl (70-99)
[2023-07-03] MEDS: ROXICODONE 10 MG PO (22:24)
[2023-07-03 23:43] VITALS: BP 123/60
[2023-07-04] MEDS: FIRVANQ 125 MG PO ×4 (00:09→16:55)
[2023-07-04 03:00] VITALS: BP 126/74
[2023-07-04 05:57] VITALS: BMI 28.1
[2023-07-04 07:00] VITALS: BP 147/72
[2023-07-04] MEDS: LIDOCAINE 4% PATCH 1 PATCH TOPICAL (07:35)
[2023-07-04] MEDS: DESITIN MAXIMUM STRENGTH PASTE 1 APPLIC TOPICAL (07:36)
[2023-07-04] MEDS: VISBIOME 2 CAP PO (07:36)
[2023-07-04] MEDS: TYLENOL 1000 MG PO ×2 (07:36→16:54)
[2023-07-04] MEDS: LOW STRENGTH ASPIRIN 81 MG PO (07:36)
[2023-07-04] MEDS: VITAMIN D3 (cholecalciferol) 25 MCG PO (07:36)
[2023-07-04] MEDS: DAKIN'S SOLUTION 0.125% 1/4 STRENGTH 1 ML TOPICAL (07:36)
[2023-07-04] MEDS: ELIQUIS 2.5 MG PO (07:38)
[2023-07-04] MEDS: PLAVIX 75 MG PO (07:38)
[2023-07-04] MEDS: LOPRESSOR 25 MG PO (07:39)
[2023-07-04 07:40] LABS: Glucose - Point of Care 91 mg/dl (70-99)
[2023-07-04] MEDS: NORVASC 10 MG PO (07:40)
[2023-07-04] MEDS: ROXICODONE 10 MG PO ×2 (09:09→16:54)
[2023-07-04] MEDS: PREVNAR 20 0.5 ML IM (09:49)
[2023-07-04 11:15] LABS: Glucose - Point of Care 89 mg/dl (70-99)
[2023-07-04 12:20] LABS: Hematocrit 25.3 % (39.0-52.0); Mean Corp Hgb Conc. 31.6 g/dL (33.0-37.0); Mean Corpuscular Hgb 28.3 pg (27.0-31.0); Mean Corpuscular Volume 89.4 fL (80.0-94.0); Platelet Count 465 10^3/uL (130-400); Red Blood Cell Count 2.83 10^6/uL (4.70-6.10); Red Cell Dist. Width 14.3 % (11.5-14.5); White Blood Cell Count 7.9 10^3/uL (4.8-10.8)
[2023-07-04 12:53] LABS: Blood Urea Nitrogen 28 mg/dl (9-20); Calcium 8.4 mg/dl (8.4-10.2); Carbon Dioxide 29 mmol/L (22-30); Chloride 95 mmol/L (98-107); Estimated Creatinine Clearance 21 ml/min; Glucose 110 mg/dl (70-99); Potassium 3.5 mmol/L (3.5-5.1); Sodium 134 mmol/L (135-145); eGFR 15.27
--- NOTE | 2023-07-04 13:16 | W.PN.NEPH.HD ---
Assessment
-
- HD again today to transition to MWF schedule for [facility]
Progress Note - Hemodialysis
-
Date of Service: July 04, 2023
Duration: 30 minutes and 3 hours
Potassium Bath: 3
Calcium Bath: 2.5
Opti-Dialyzer: 160
Ultrafiltration: Other
Blood Flow: 400
Dialysate Flow: 600
[2023-07-04] MEDS: RETACRIT 10000 UNITS IV (13:40)
[2023-07-04] MEDS: FLEXBUMIN 25% FOR HEMODIALYSIS 12.5 GRAMS IV (13:49)
--- NOTE | 2023-07-04 14:01 | W.PN.HOSP.TC ---
Today's Communication/Plan
-
discharge NH
Assessment / Plan
Assessment / Plan
1. C diff colitis
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
-Patient having liquid stool overnight.
-Mary score 1 .
-Maintain probiotics
-ID following and help appreciated.
-Patient to be maintained on oral vancomycin 4 times a day till 07/13/2023 followed by twice daily until on Ancef
-Flagyl 500 every 8 were added per ID recommendation
2. L2-L3 epidural abscess/discitis
Psoas abscess
-S/p lumbar laminectomy and drainage on 06/[address] [facility]
-culture data requested - records obtained but correct records have not been sent.
-Repeat blood culture ordered
-maintain on ancef 2g and 3g Sa after HD
-Patient will need to follow-up with [facility] post discharge
3. LUIS ANGEL on HD
Suspected Post infectious GN vs ATN
-Patient required brief dialysis support in April
-Patient and [facility] in May patient had recurrence of renal failure necessitating dialysis support
-Patient currently on Friday dialysis routine
-Nephro consulted for further help
4. Hematuria - resolved
Chronic indwelling callahan
- callahan catheter in place
- on Plavix/Eliquis
5. Acute normocytic anemia
-Suspecting anemia secondary to renal disease
-Hbg ~8 today after 1 u prbc
-baseline 7-8
-will get EPO injection
-2nd u of PRBC ordered for hbg 7
6. Chronic Right heel wound
PAD with h/o RLE art stent
-Per limited records available, patient have repeated debridement by vascular surgeon at [facility]
-No MRI of right foot per records review.
-derrick boat lever operator consulted and following
7. Hypoglycemia - resolved
NIDDM
-hold glipizide/metformin
-stop further D5/NS
-Maintain on ISS
DVT PPX - eliquis
Full code
More than 30 minutes spent in discharge including
Final examination of the patient
Summarizing hospital stay
Instructions for continuing care to all relevant caregivers
Preparation of discharge records, prescriptions, and referral forms
Total time spent (in minutes): 38 mins
Anticipated Discharge: Today
Subjective/Interval History
-
Date of Service: July 04, 2023
No complaints overnight
Continues to have liquid stool. Denies nausea or vomiting
Objective Data
-
Labs:
Laboratory Results
07/04/23
12:06
WBC 7.9
Hgb 8.0 L
Hct 25.3 L
Plt Count 465 H
Sodium 134 L
Potassium 3.5
Chloride 95 L
Carbon Dioxide 29
BUN 28 H
Creatinine 4.1 H*
Glucose 110 H
Calcium 8.4
Vital Signs:
Vital Signs
Temp Pulse Resp BP Pulse Ox
99.1 F 91 14 147/72 93
07/04/23 07:00 07/04/23 07:40 07/04/23 07:00 07/04/23 07:40 07/04/23 07:00
I&O
07/03/23 07/04/23 07/05/23
06:59 06:59 06:59
Intake Total 1320 / 1320 2084 / 2084
Output Total 250 / 250 400 / 400
Balance 1070 / 1070 1684 / 1684
Review of Systems
-
Respiratory: Reports No Symptoms
Cardiac: Reports No Symptoms
Abdomen/GI: Reports No Symptoms
Physical Exam
-
General: No Apparent Distress and Comfortable
HEENT: Negative Oxygen
GI: Soft and Other (Fecal managment system); Negative Nontender or Nondistended
Musculoskeletal: No Edema and Other (Right heel dressing in place)
Neuro: Awake, Alert, Oriented, No Motor Deficits and Nonfocal/Grossly Intact
Psych: Calm
[2023-07-04] MEDS: MANNITOL 12.5 GRAMS IV (14:07)
--- NOTE | 2023-07-04 14:42 | W.PN.ID1 ---
Date of Service
Date of Service: July 04, 2023
Today's Communication
- agree with oral vancomycin x 10 more days, then would continue oral vanc 125 mg PO BID while on cefazolin - through 08/09/23
- add metronidazole 500 mg PO BID x 5 more days
stable for dc from ID perspective
Assessment / Plan
L2-L3 and possibly L3-L4 Discitis, Osteomyelitis
Epidural abscess from L1- sacrum, s/p laminectomy 06/12
Psoas Abscesses bilaterally
- s/p drain placement 06/11
MSSA Bacteremia
C difficile
LUIS ANGEL: ATN vs PIGN
- blood cultures x2 in progress no growth to date
- continue cefazolin for planned course - 8 weeks - through 08/09/23
- now requiring FMS - increased diarrhea
- agree with oral vancomycin x 10 more days, then would continue oral vanc 125 mg PO BID while on cefazolin - through 08/09/23
- add metronidazole 500 mg PO BID x 5 more days
- stopped protonix 06/29 (increases risk of relapse)
- probiotics while on cefazolin
- note prn cathartics, none scheduled - not needed at this time
- enhanced precautions
Chief Complaint
-: C-diff
Subjective / Review of Systems
afebrile
bp stable
without leukocytosis
k normal
increased diarrhea now requiring FMS
Vital Signs / Physical Exam
Vital Signs
Vital Signs
Temp Pulse Resp BP Pulse Ox
99.1 F 91 14 147/72 93
07/04/23 07:00 07/04/23 07:40 07/04/23 07:00 07/04/23 07:40 07/04/23 07:00
Physical Exam
Constitutional: No Acute Distress
Cardiovascular: Regular Rate and S1/S2; Negative Murmur or Rub
Pulmonary: Clear and Symmetric; Negative Wheezes or Rales
Gastrointestinal: Soft, Non Tender, Non Distended and Normal Bowel Sounds
Skin: Warm and Dry; Negative Rash or Jaundice
Objective Data
Lab Data
Lab Results
07/04/23 12:06
07/04/23 12:06
Estimated Creat Clear 21 ml/min 07/04/23 12:06
Total Bilirubin 0.5 mg/dl (0.2-1.3) 06/29/23 17:45
AST 18 U/L (17-59) 06/29/23 17:45
ALT < 10 U/L (0-50) 06/29/23 17:45
Alkaline Phosphatase 137 U/L (38-126) H 06/29/23 17:45
Most recent labs reviewed.
Micro Results:
06/30/23 10:13 Blood Culture - Preliminary
Blood/Venous No Growth in 4 days- Final report to follow
06/30/23 07:44 Blood Culture - Preliminary
Blood/Venous No Growth in 4 days- Final report to follow
06/29/23 19:38 Salmonella/Shigella Culture - Final
Feces/Stool No Salmonella, Shigella, Aeromonas or Plesiomonas species
isolated.
Campylobacter Culture - Final
No Campylobacter species isolated.
Shiga Toxin Test - Final
No E. coli Shiga Toxin 1 or 2 detected.
06/29/23 19:38 Urine Culture - Final
Urine NO GROWTH
06/30/23 01:17 MRSA Screen - Final
Nose No Methicillin Resistant Staphylococcus aureus isolated.
06/29/23 19:38 C. difficile GDH Antigen & Toxins - Final
Feces/Stool Toxigenic C.difficile Positive
Care Review
Plan reviewed with: Physician (Dr Wray- juancarloso)
[2023-07-04 15:30] VITALS: BP 133/84
[2023-07-04 16:59] LABS: Glucose - Point of Care 89 mg/dl (70-99)
--- NOTE | 2023-07-05 07:24 | W.DCSUMMARY ---
Discharge Summary
Discharge Data
Date of Admission: 06/29/23
Date of Discharge: 07/04/23
-
Pending Results: No
Hospital Course
Discharging Physician : Dr Tru Wray
Disposition : [facility]
Primary care physician : Unknown
Principal Discharge diagnosis :
Clostridium difficile colitis
Hematuria
Acute normocytic anemia from renal failure
Chronic Discharge diagnosis :
Recent L2-L3 epidural abscess/discitis
Recent psoas abscess
Acute kidney injury on hemodialysis
Chronic right heel wound
Peripheral artery disease with history of right lower extremity stenting
Ambulatory dysfunction
Hospital Course :
Patient is a 68-year-old male with mentioned past medical history was sent in from [facility] after patient was noted to having new onset of confusion and hematuria. Patient also had mechanical fall although details are unclear.
C. difficile colitis -patient was noted to having diarrhea and is known to getting antibiotic for recent diagnosis of epidural abscess. C. difficile test was positive. ID was involved in care and patient was started on oral vancomycin therapy.
ID recommended total 10 days of oral vancomycin treatment dose followed by twice daily as prophylaxis until patient finishes Ancef course. Patient continued to have some diarrhea although no significant abdominal complaints.
Hematuria -this was felt to be related to Mccloud catheter traction and patient being on Plavix and Eliquis. This was clinically not worrisome and patient was maintained on Plavix and Eliquis. Hematuria cleared without any further intervention. UA
ruled out any urinary tract infection.
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 Nephrology was following along and patient was getting Friday
Friday dialysis. Patient continued to remain anemic on and off and this was related to ESRD. Patient required to enter blood transfusion this hospitalization.
Chronic right heel wound -patient has a history of peripheral artery disease and chronic right heel wound. This has been periodically debrided by primary vascular surgeon at [facility]. No signs of active infection this admission and wound
care was continued.
Post medical stabilization patient was discharged back to [facility].
Important imaging findings :
None
Procedure findings :
None
Discharge Plan
-
Patient Disposition: Half-Way/SNF
Discharge Diagnosis/Procedures: C diff colitis , L2-L3 epidural abscess/discitis, LUIS ANGEL on HD
Condition: Fair
Diet: Diabetic, Carb Controlled
Activity: As tolerated
Driving Restrictions: No driving
Bathing Restrictions: OK to Shower
Activity Restrictions/Additional Instructions:
Wound Care Instructions'
R heel ulcer-clean with 1/4 strength Dakin's solution, Desitin oinment to surrounding skin, 1/4 strength Dakins moistened Kerlix packing, cover with dry 4x4 gauze pads, ABD pad, cover R dorsal foot eschar with non woven gauze pads, secure with
Kerlix wrap (not tight), bid. May resume prior wound care once green drainage resolves.
Elevate heels off bed; soft heel off loading boots as tolerated.
NWB R foot/heel.
Pressure redistributing chair cushion (i.e. air chair cushion).
Follow up with your vascular surgeon Dr. Gross [facility] [phone] in 1-2 weeks.
Follow up with infectious disease at [facility] in 4 weeks
Referrals:
NONE,* [Family Provider] -
Prescriptions:
New
cefazolin 10 gram Recon Soln
2 g IV TUTH Qty: 10 0RF
Rx Instructions:
Last dose 08/09/23
CeFAZolin SODIUM [Ancef] 3000 MG
Syringe [Syringe-Pump] 0 ML
180 mls/hr IV SA
Last dose 08/09/23
Ordered By: Tru Wray MD
Last Taken: Unknown
oxycodone 10 mg Tablet
10 mg PO Q6H PRN (Reason: mod sev pain) Qty: 14 0RF
vancomycin 125 mg capsule
125 mg PO Q6H Qty: 90 0RF
Rx Instructions:
Four times a day till 07/13/23 THEN
Twice daily until on ancef
metronidazole 500 mg tablet
500 mg PO TID Qty: 15 0RF
Rx Instructions:
last dose 07/09/23
Continued
metformin 500 mg Tablet
500 mg PO BID
lidocaine 4 % Adhesive Patch,Medicated
1 patch TOPICAL DAILY
clopidogrel 75 mg Tablet
75 mg PO DAILY
acetaminophen 500 mg Tablet
1,000 mg PO TID
Patient Comments:
06/29/2023, start date: 06/29/2023; end date: 07/09/2023.
magnesium hydroxide [Milk of Magnesia] 400 mg/5 mL Suspension
30 ml PO HSPRN PRN (Reason: if no BM in 3 days)
amlodipine 10 mg Tablet
10 mg PO DAILY
bisacodyl 10 mg Suppository
10 mg [place] DAILY PRN (Reason: if no results for MOM)
pantoprazole 40 mg Tablet,Delayed Release (Dr/Ec)
40 mg PO DAILY
aspirin 81 mg Tablet,Chewable
81 mg PO DAILY
glipizide 5 mg Tablet
5 mg PO BID
metoprolol tartrate 25 mg Tablet
25 mg PO BID
cholecalciferol (vitamin D3) 25 mcg (1,000 unit) Tablet
25 mcg PO DAILY
apixaban 2.5 mg Tablet
2.5 mg PO BID
Discontinued
oxycodone 10 mg Tablet
10 mg PO Q6H PRN (Reason: severe pain)
Discharge Orders:
Discharge Patient (As Directed); Ordered 07/04/23
Ordered By: Tru Wray
Discharge Date and Time
Discharge Date/Time: 07/04/23 17:54
Print Language: EGYPTIAN
== END 2023-07-04 17:54 | DRG 871 ==
LOC: 2 NORTH 21:49
PROVIDERS: Specialist; ADMITTING PHYSICIAN Internal Medicine; ATTENDING PHYSICIAN Hospitalist; CONSULT PHYSICIAN Student in an Organized Health Care Education/Training Program; EMERGENCY PHYSICIAN Emergency Medicine; OTHER PHYSICIAN Student in an Organized Health Care Education/Training Program
PROC: 5A1D70Z Performance of Urinary Filtration, Intermittent, Less than 6 Hours Per Day (ICD-10-PCS; 2023-07-01)
DX: A41.9 Sepsis, unspecified organism (principal); G92.8 Other toxic encephalopathy; N18.6 End stage renal disease; K68.12 Psoas muscle abscess; A04.72 Enterocolitis due to Clostridium difficile, not specified as recurrent; I12.0 Hypertensive chronic kidney disease with stage 5 chronic kidney disease or end stage renal disease; N17.9 Acute kidney failure, unspecified; F11.20 Opioid dependence, uncomplicated; Z99.2 Dependence on renal dialysis; E11.22 Type 2 diabetes mellitus with diabetic chronic kidney disease; Z79.82 Long term (current) use of aspirin; D64.9 Anemia, unspecified
CPT/HCPCS: 70450; 72170; 74018; 80048; 80053; 81003; 81015; 82962; 83036; 84443; 85014; 85018; 85025; 85027; 86850; 86900; 86901; 86920; 87040; 87045; 87046; 87070; 87077; 87086; 87324; 87340; 87427; 87449; 90677; 93005; 99285; G0009; G0257; P9016; P9047; Q5106

== ENCOUNTER 2023-07-08 01:35 | Inpatient (IN) | payer MEDICARE, MEDICAID, SELFPAY ==
[2023-07-07 22:49] VITALS: BP 110/63
[2023-07-07 22:54] LABS: Glucose - Point of Care 118 mg/dl (70-99)
[2023-07-07 23:00] VITALS: BP 93/61
--- NOTE | 2023-07-07 23:01 | ED.GENMED ---
Addendum entered and electronically signed by Emir Almanzar DO 07/08/23 00:12:
Chest x-ray is pending at this time,
EKG normal sinus rhythm at [address]-T changes
Original Note:
History of Present Illness
General
Chief Complaint: Unresponsive
Source: patient, records and previous hospital records
Exam Limitations: altered mental status
Time Seen by Provider: 07/07/23 22:53
Nursing documentation reviewed up to this point in time: agreed with
Travel History
Have you had any contact with someone who has COVID-19?: No
Do you have any symptoms of coronavirus? Fever > 100 degrees, chills, cough, shortness of breath, sore throat, loss of taste or smell, muscle aches, or headache?: No
History of Present Illness
History of Present Illness:
68-year-old male from local [facility] presents with low blood sugar respectively at his facility given glucagon x 2 and food EMS gave gave him dextrose and improved to 165
Here patient is unsure what happened states he got dialysis today, had a lot of diarrhea which is not new states he has C. difficile he also has infection around in his spine is unsure of the details of that states he does not ambulate very well
denies any fevers
Prior records briefly reviewed patient admitted recently with C. difficile he has chronic osteomyelitis discitis end-stage renal disease looks like he is on metformin and glipizide
Past History
Past History
ED Past Medical History: HTN, NIDDM, Renal failure, Other (Anemia) and Other (Metabolic encephalopathy, hyponatremia)
ED Past Surgical History: Orthopedic (Laminectomy)
Social History
Tobacco: Non-smoker
Alcohol: None
Drug: None
Living: prison
Review of Systems
Review of Systems
All Other Systems: Not applicable
Phy Exam
Physical Exam
Physical Exam:
Physical Exam
General: Chronically ill male blood pressure in the 90s
Neck: No jaundice
Heart: Regular
Lungs: no acute respiratory distress.
Abdomen: Nontender
Neuro: alert and oriented. Lower extremity weakness
Skin: no rash
Psychiatric: Disheveled but
Extremities: no edema.
Course
Orders/Labs/Results
Orders:
Orders
07/07/23 22:51
Bedside Glucose- Treatment ONCE
07/07/23 23:08
CR Chest Portable - 1 View Urgent
Comment:
Reason For Exam: lwo bp and glucose
Reason Study Needs to be Portable: Patient Unstable
07/07/23 23:20
Electrocardiogram (*1) Urgent
Reason for Study: Abdominal Pain
EKG- Treatment ONCE
Complete Blood Count/With Diff Urgent
Comprehensive Metabolic Panel Urgent
07/07/23 23:45
Dextrose 10%/Water 1000 ml [D10w] 1,000 ml IV 125 mls/hr
Abnormal Lab Results
07/07/23 07/07/23
22:53 23:20
WBC 22.9 H 10^3/uL
(4.8-10.8)
RBC 3.12 L 10^6/uL
(4.70-6.10)
Hgb 8.8 L g/dL
(13.0-18.0)
Hct 27.2 L %
(39.0-52.0)
MCHC 32.4 L g/dL
(33.0-37.0)
RDW 14.7 H %
(11.5-14.5)
Plt Count 573 H D 10^3/uL
(130-400)
Abs Immat Gran (auto) 0.4 H 10^3/uL
(0-0.05)
Absolute Neuts (auto) 19.6 H 10^3/uL
(1.4-6.5)
Absolute Monos (auto) 1.5 H 10^3/uL
(0.1-0.6)
Immature Gran % 1.7 H %
(0-0.5)
Neutrophils % 85.7 H %
(42.2-75.2)
Lymphocytes % 5.6 L %
(20.5-51.1)
Potassium 3.1 L mmol/L
(3.5-5.1)
BUN 34 H mg/dl
(9-20)
Creatinine 4.0 H mg/dL
(0.7-1.3)
Calcium 8.3 L mg/dl
(8.4-10.2)
Alkaline Phosphatase 397 H U/L
(38-126)
Total Protein 5.6 L g/dl
(6.3-8.2)
Albumin 2.4 L g/dl
(3.5-5.0)
POC Glucose 118 H mg/dl
(70-99)
07/07/23 23:20
07/07/23 23:20
Vital Signs
Initial and Last Documented VS:
Initial Vital Signs
Pulse Resp Pulse Ox
72 18 97
07/07/23 22:44 07/07/23 22:44 07/07/23 22:44
Last Documented Vital Signs
Pulse Resp Pulse Ox
72 18 97
07/07/23 22:44 07/07/23 22:44 07/07/23 22:44
MDM/Problems Addressed
Differential Diagnosis Includes:
Medication effect sepsis renal insufficiency sulfonylurea
MDM/Problems Addressed:
Hypoglycemia
Chronic conditions affecting care: DM and Kidney disease
Acute Exacerbation and/or Progression of Chronic Illness: DM and Kidney disease
*Pulse Oximetry
Patient hypoxic: no
*Service Order Expediter Interpretation
Rate: normal
Interpretation: normal
Heart Rate: 78
Rhythm: sinus
*Critical Care Note
Total Time (30-74mins, 75-104mins- exclusive of procedures): Not Applicable
Data Reviewed
Review of Other/Old Records Reveals: Labs and Discharge Summary
Source: patient and records
Update Note
Update Note:
Update 3 apparent episodes of hypoglycemia in the diabetic on glipizide with chronic renal insufficiency
Patient high risk for recurrence, we will bring him into the hospital
ED Attending Note
-
Portions of this chart may have been created with voice recognition software.� Occasional wrong word or��sound alike� substitutions may have occurred due to the inherent limitations of voice recognition software.
Discharge Plan
Departure
Patient Disposition: Admit
Date of Disposition: 07/08/23
Time of Disposition: 00:09
Admit to: Med/Surg and Telemetry
Presentation/result/management discussed w/ accepting MD/DO: Hospitalist
Patient with high blood pressure during this ER visit?: No
Condition: Fair
Covid-19: Not Applicable
Discharge Problem:
Anemia in CKD (chronic kidney disease), C. difficile colitis, Recurrent hypoglycemia
Prescriptions:
No Action
metformin 500 mg Tablet
500 mg PO BID
lidocaine 4 % Adhesive Patch,Medicated
1 patch TOPICAL DAILY
clopidogrel 75 mg Tablet
75 mg PO DAILY
acetaminophen 500 mg Tablet
1,000 mg PO TID
Patient Comments:
06/29/2023, start date: 06/29/2023; end date: 07/09/2023.
magnesium hydroxide [Milk of Magnesia] 400 mg/5 mL Suspension
30 ml PO HSPRN PRN (Reason: if no BM in 3 days)
amlodipine 10 mg Tablet
10 mg PO DAILY
bisacodyl 10 mg Suppository
10 mg [place] DAILY PRN (Reason: if no results for MOM)
pantoprazole 40 mg Tablet,Delayed Release (Dr/Ec)
40 mg PO DAILY
aspirin 81 mg Tablet,Chewable
81 mg PO DAILY
glipizide 5 mg Tablet
5 mg PO BID
metoprolol tartrate 25 mg Tablet
25 mg PO BID
cholecalciferol (vitamin D3) 25 mcg (1,000 unit) Tablet
25 mcg PO DAILY
apixaban 2.5 mg Tablet
2.5 mg PO BID
oxycodone 10 mg Tablet
10 mg PO Q6H PRN (Reason: mod sev pain) Qty: 14 0RF
vancomycin 125 mg capsule
125 mg PO Q6H Qty: 90 0RF
Rx Instructions:
Four times a day till 07/13/23 THEN Twice daily until on ancef
metronidazole 500 mg tablet
500 mg PO TID Qty: 15 0RF
Rx Instructions:
last dose 07/09/23
cefazolin 2 g solution
10 ml IV MOWE
Patient Comments:
07/07/2023: give 10ml at 120ml/hr
cefazolin 3 g solution
15 ml IV FR
Patient Comments:
07/07/2023: give 15ml at 180ml/hr
Referrals:
Vinnie Barbosa MD [Family Provider] -
Interventions
Interventions:
*Risk Screen - Suicide Last Done: 07/07/23 23:33
*General Assessment Last Done: 07/07/23 23:33
*Neglect/Abuse Screening Last Done: 07/07/23 23:33
ED- Fall Risk Assessment Last Done: 07/07/23 23:33
*ED COVID-19 Vaccine History Last Done: 07/07/23 22:54
ED- Neurological Assessment Last Done: 07/07/23 23:33
Discharge Date and Time
Print Language: GEORGIAN
[2023-07-07] MEDS: D10W 1000 IV (23:21)
[2023-07-07 23:33] VITALS: BMI 28.0
[2023-07-07 23:33] LABS: % Basophils 0.3 % (0-2); % Eosinophils 0.2 % (0-6); % Immature Granulocytes 1.7 % (0-0.5); % Lymphocytes 5.6 % (20.5-51.1); % Monocytes 6.5 % (1.7-9.3); % Neutrophils 85.7 % (42.2-75.2); Absolute Basophils 0.1 10^3/uL (0-0.2); Absolute Eosinophils 0.1 10^3/uL (0-0.7); Absolute Immature Granulocytes 0.4 10^3/uL (0-0.05); Absolute Lymphocytes 1.3 10^3/uL (1.2-3.4); Absolute Monocytes 1.5 10^3/uL (0.1-0.6); Absolute Neutrophils 19.6 10^3/uL (1.4-6.5); Hematocrit 27.2 % (39.0-52.0); Hemoglobin 8.8 g/dL (13.0-18.0); Mean Corp Hgb Conc. 32.4 g/dL (33.0-37.0); Mean Corpuscular Hgb 28.2 pg (27.0-31.0); Mean Corpuscular Volume 87.2 fL (80.0-94.0); Mean Platelet Volume 8.4 fL (7.4-10.4); Nucleated Red Blood Cells % 0 % (-); Platelet Count 573 10^3/uL (130-400); Red Blood Cell Count 3.12 10^6/uL (4.70-6.10); Red Cell Dist. Width 14.7 % (11.5-14.5); White Blood Cell Count 22.9 10^3/uL (4.8-10.8)
[2023-07-07 23:55] LABS: ALT (SGPT) < 10 U/L (0-50); AST (SGOT) 26 U/L (17-59); Albumin 2.4 g/dl (3.5-5.0); Alkaline Phosphatase 397 U/L (38-126); Blood Urea Nitrogen 34 mg/dl (9-20); Calcium 8.3 mg/dl (8.4-10.2); Carbon Dioxide 25 mmol/L (22-30); Chloride 99 mmol/L (98-107); Estimated Creatinine Clearance 21 ml/min; Glucose 81 mg/dl (70-99); Potassium 3.1 mmol/L (3.5-5.1); Sodium 136 mmol/L (135-145); Total Bilirubin 0.5 mg/dl (0.2-1.3); Total Protein 5.6 g/dl (6.3-8.2); eGFR 15.73
[2023-07-08] VITALS (16 sets, daily range): BP systolic 101–117; BP diastolic 58–96; PULSE 79–88; O2SAT 100; BMI 26.8
--- NOTE | 2023-07-08 00:06 | EDRN ---
Patient incontinent to stool, rolled and cleaned up new brief and gown provided, pulled up in bed and turned down lights
--- NOTE | 2023-07-08 00:11 | ED.GENMED ---
History of Present Illness
General
Chief Complaint: Unresponsive
Time Seen by Provider: 07/07/23 22:53
Travel History
Have you had any contact with someone who has COVID-19?: No
Do you have any symptoms of coronavirus? Fever > 100 degrees, chills, cough, shortness of breath, sore throat, loss of taste or smell, muscle aches, or headache?: No
Past History
Past History
ED Past Medical History: HTN, NIDDM, Renal failure, Other (Anemia) and Other (Metabolic encephalopathy, hyponatremia)
ED Past Surgical History: Orthopedic (Laminectomy)
Social History
Tobacco: Non-smoker
Alcohol: None
Drug: None
Living: long term
Course
Orders/Labs/Results
Orders:
Orders
07/07/23 22:51
Bedside Glucose- Treatment ONCE
07/07/23 23:08
CR Chest Portable - 1 View Urgent
Comment:
Reason For Exam: lwo bp and glucose
Reason Study Needs to be Portable: Patient Unstable
07/07/23 23:20
Electrocardiogram (*1) Urgent
Reason for Study: Abdominal Pain
EKG- Treatment ONCE
Complete Blood Count/With Diff Urgent
Comprehensive Metabolic Panel Urgent
07/07/23 23:45
Dextrose 10%/Water 1000 ml [D10w] 1,000 ml IV 125 mls/hr
Abnormal Lab Results
07/07/23 07/07/23
22:53 23:20
WBC 22.9 H 10^3/uL
(4.8-10.8)
RBC 3.12 L 10^6/uL
(4.70-6.10)
Hgb 8.8 L g/dL
(13.0-18.0)
Hct 27.2 L %
(39.0-52.0)
MCHC 32.4 L g/dL
(33.0-37.0)
RDW 14.7 H %
(11.5-14.5)
Plt Count 573 H D 10^3/uL
(130-400)
Abs Immat Gran (auto) 0.4 H 10^3/uL
(0-0.05)
Absolute Neuts (auto) 19.6 H 10^3/uL
(1.4-6.5)
Absolute Monos (auto) 1.5 H 10^3/uL
(0.1-0.6)
Immature Gran % 1.7 H %
(0-0.5)
Neutrophils % 85.7 H %
(42.2-75.2)
Lymphocytes % 5.6 L %
(20.5-51.1)
Potassium 3.1 L mmol/L
(3.5-5.1)
BUN 34 H mg/dl
(9-20)
Creatinine 4.0 H mg/dL
(0.7-1.3)
Calcium 8.3 L mg/dl
(8.4-10.2)
Alkaline Phosphatase 397 H U/L
(38-126)
Total Protein 5.6 L g/dl
(6.3-8.2)
Albumin 2.4 L g/dl
(3.5-5.0)
POC Glucose 118 H mg/dl
(70-99)
07/07/23 23:20
07/07/23 23:20
Vital Signs
Initial and Last Documented VS:
Initial Vital Signs
Pulse Resp Pulse Ox
72 18 97
07/07/23 22:44 07/07/23 22:44 07/07/23 22:44
Last Documented Vital Signs
Pulse Resp Pulse Ox
72 18 97
07/07/23 22:44 07/07/23 22:44 07/07/23 22:44
*Radiology
Radiology exam reviewed: preliminary read by ED provider
*Pulse Oximetry
Patient hypoxic: no
*EKG
Interpretation: normal
Comparison EKG: no comparison EKG present
Heart Rate: 78
Rate: normal
[place]: normal axis
Ischemia: non-specific ST changes
*Strap Setter Interpretation
Rate: normal
Interpretation: normal
Heart Rate: 78
Rhythm: sinus
*Critical Care Note
Total Time (30-74mins, 75-104mins- exclusive of procedures): Not Applicable
ED Attending Note
-
Portions of this chart may have been created with voice recognition software.� Occasional wrong word or��sound alike� substitutions may have occurred due to the inherent limitations of voice recognition software.
Discharge Plan
Departure
Patient Disposition: Admit
Date of Disposition: 07/08/23
Time of Disposition: 00:09
Admit to: Med/Surg and Telemetry
Presentation/result/management discussed w/ accepting MD/DO: Hospitalist
Patient with high blood pressure during this ER visit?: No
Condition: Fair
Covid-19: Not Applicable
Discharge Problem:
Anemia in CKD (chronic kidney disease), C. difficile colitis, Recurrent hypoglycemia
Prescriptions:
No Action
metformin 500 mg Tablet
500 mg PO BID
lidocaine 4 % Adhesive Patch,Medicated
1 patch TOPICAL DAILY
clopidogrel 75 mg Tablet
75 mg PO DAILY
acetaminophen 500 mg Tablet
1,000 mg PO TID
Patient Comments:
06/29/2023, start date: 06/29/2023; end date: 07/09/2023.
magnesium hydroxide [Milk of Magnesia] 400 mg/5 mL Suspension
30 ml PO HSPRN PRN (Reason: if no BM in 3 days)
amlodipine 10 mg Tablet
10 mg PO DAILY
bisacodyl 10 mg Suppository
10 mg [place] DAILY PRN (Reason: if no results for MOM)
pantoprazole 40 mg Tablet,Delayed Release (Dr/Ec)
40 mg PO DAILY
aspirin 81 mg Tablet,Chewable
81 mg PO DAILY
glipizide 5 mg Tablet
5 mg PO BID
metoprolol tartrate 25 mg Tablet
25 mg PO BID
cholecalciferol (vitamin D3) 25 mcg (1,000 unit) Tablet
25 mcg PO DAILY
apixaban 2.5 mg Tablet
2.5 mg PO BID
oxycodone 10 mg Tablet
10 mg PO Q6H PRN (Reason: mod sev pain) Qty: 14 0RF
vancomycin 125 mg capsule
125 mg PO Q6H Qty: 90 0RF
Rx Instructions:
Four times a day till 07/13/23 THEN Twice daily until on ancef
metronidazole 500 mg tablet
500 mg PO TID Qty: 15 0RF
Rx Instructions:
last dose 07/09/23
cefazolin 2 g solution
10 ml IV MOWE
Patient Comments:
07/07/2023: give 10ml at 120ml/hr
cefazolin 3 g solution
15 ml IV FR
Patient Comments:
07/07/2023: give 15ml at 180ml/hr
Referrals:
Vinnie Barbosa MD [Family Provider] -
Interventions
Interventions:
*Risk Screen - Suicide Last Done: 07/07/23 23:33
*General Assessment Last Done: 07/07/23 23:33
*Neglect/Abuse Screening Last Done: 07/07/23 23:33
ED- Fall Risk Assessment Last Done: 07/07/23 23:33
*ED COVID-19 Vaccine History Last Done: 07/07/23 22:54
ED- Neurological Assessment Last Done: 07/07/23 23:33
Discharge Date and Time
Print Language: VENEZUELAN
[2023-07-08 00:52] LABS: Glucose - Point of Care 86 mg/dl (70-99)
--- NOTE | 2023-07-08 01:29 | HPS.HSE ---
Family Physician
-
Family Physician: Vinnie Barbosa
Chief Complaint
-
Hypoglycemia
History of Present Illness
Patient is a 68y M with PMH significant for osteomyelitis / discitis, LUIS ANGEL requiring HD, DM-II and recent admission for encephalopathy and C Diff colitis who presents to ED from [place] for evaluation of hypoglycemic episodes. Patient was noted to
have severe hypoglycemia today at the [facility] with glucose values in the 20s / 30s despite supplemental glucagon, juice, etc. Patient was brought to the ED for further evaluation. He was given D50 by EMS and his glucose increased to 165. Here his
values have decreased again into the 80s. Patient is on sulfonylurea and metformin at the [facility].
During his recent hospital stay here, those meds were held - also due to hypoglycemia.
Patient's only complaint at present is reflux / indigestion.
Medical History
Past Medical History
Past Medical History: Reports Other
Additional Past Medical History:
Lumbar Osteomyelitis / Discitis
Psoas Abscess
DM-II
LUIS ANGEL requiring HD
ASCVD / PAD
Chronic Right Heel Wound
Hypertension
GERD
Anemia of Chronic Disease
Chronic Indwelling Mccloud
Past Surgical History: Reports Other
Additional Past Surgical History:
Lumbar Laminectomy
RLE Angio / Stent
R IJ Tunneled HD Catheter
Social History
Tobacco: Non-smoker
Alcohol: None
Drug: None
Family History
Family History: Not pertinent
Allergies / Home Medications
Allergies reflects when Allergies were last updated in [facility].
Home Medications with original date entered in [facility]
Allergy/Medication List:
Allergies
Allergy/AdvReac Type Severity Reaction Status Date / Time
No Known Allergies Allergy Verified 07/07/23 22:43
Home Medications
acetaminophen 500 mg tablet 1,000 mg PO TID Pain 06/29/23
amlodipine 10 mg tablet 10 mg PO DAILY Blood Pressure 06/29/23
apixaban 2.5 mg tablet 2.5 mg PO BID Blood Clot Prevention/Tx 06/29/23
aspirin 81 mg chewable tablet 81 mg PO DAILY Blood Clot Prevention/Tx 06/29/23
bisacodyl 10 mg rectal suppository 10 mg [place] DAILY PRN if no results for MOM 06/29/23
cholecalciferol (vitamin D3) 25 mcg (1,000 unit) tablet 25 mcg PO DAILY Supplement 06/29/23
clopidogrel 75 mg tablet 75 mg PO DAILY Blood Clot Prevention/Tx 06/29/23
glipizide 5 mg tablet 5 mg PO BID Diabetes 06/29/23
lidocaine 4 % topical patch 1 patch topical DAILY lower back 06/29/23
magnesium hydroxide 400 mg/5 mL oral suspension (Milk of MagnSouthwest Sun [employer]) 30 ml PO HSPRN PRN if no BM in 3 days 06/29/23
metformin 500 mg tablet 500 mg PO BID Diabetes 06/29/23
metoprolol tartrate 25 mg tablet 25 mg PO BID Blood Pressure 06/29/23
pantoprazole 40 mg tablet,delayed release 40 mg PO DAILY Gastrointestinal Issue 06/29/23
oxycodone 10 mg tablet 10 mg PO Q6H PRN mod sev pain #14 tabs 07/03/23
metronidazole 500 mg tablet 500 mg PO TID #15 tabs 07/04/23
vancomycin 125 mg capsule 125 mg PO Q6H #90 caps 07/04/23
cefazolin 10 ml IV MOWE 07/07/23
cefazolin 15 ml IV FR 07/07/23
Review of Systems
-
History Source: Patient
A 12 point ROS was completed and negative except as noted: Yes
Constitutional: Denies Fever or Chills
Respiratory: Denies Cough or Trouble Breathing
Cardiac: Denies Chest Pain or Palpitations
Abdomen/GI: Reports Diarrhea and Other (Heartburn); Denies Abdominal Pain, Nausea or Vomiting
Neurological: Denies Dizzy or Headache
Physical Exam
Vital Signs
Vital Signs
Pulse Resp Pulse Ox
72 18 97
07/07/23 22:44 07/07/23 22:44 07/07/23 22:44
Physical Exam
General: Other (68y M in no acute distress.)
HEENT: Moist mucous membranes and PERRLA
Respiratory: Clear; No Wheezes, Rales or Rhonchi
Cardiac: S1/S2 and Irregular Rhythm; No Murmur
GI: Soft, Non Tender, Non Distended and Normal Bowel Sounds
Genito-urinary: Other (Indwelling Mccloud catheter.)
Musculoskeletal: No Clubbing and No Cyanosis
Skin: Other (R Heel Wound with dressing intact.)
Neuro: AO x 3
Psych: No Agitated, Anxious or Depressed
Laboratory Results
-
07/07/23 23:20
07/07/23 23:20
Laboratory Results
Total Bilirubin 0.5 mg/dl (0.2-1.3) 07/07/23 23:20
AST 26 U/L (17-59) 07/07/23 23:20
ALT < 10 U/L (0-50) 07/07/23 23:20
Alkaline Phosphatase 397 U/L (38-126) H 07/07/23 23:20
Impression/Plan
-
A/P: Patient is a 68y M with PMH significant for osteomyelitis / discitis with prior hospitalization and surgery at [facility] and recent admission here for TME and CDiff colitis who returns to ED for evaluation of hypoglycemia.
Hypoglycemia
DM-II
- Admit for further evaluation and treatment.
- Hypoglycemia secondary to oral hypoglycemic agents.
- Hold all PO DM meds and would not resume them on discharge.
- Continue dextrose infusion for now and follow q2 AccuChecks until stable.
- Wean dextrose and decrease frequency of glucose checks as able.
- DM diet.
- A1C during recent visit was 5.9%.
CDiff Colitis
- Continued diarrhea.
- Now with significant leukocytosis which is consistent with CDiff.
- Continue PO Vanco and Flagyl.
- Follow for decreased frequency of stooling.
Lumbar Osteomyelitis / Discitis
- Stable. No complaints of back pain.
- No fevers / chills.
- Continue current cefazolin dosing.
- Follow for any new symptoms / complaints.
LUIS ANGEL now Requiring HD
- Patient developed LUIS ANGEL during initial hospitalization at [facility] and was initiated on HD.
- Now on T-H-Sat schedule.
- Nephrology evaluation for HD needs during hospital stay.
ASCVD
- Stable. Prior h/o PAD s/p RLE stenting.
- Continue current med regimen including DAPT, Eliquis, etc
Anemia of Chronic Disease
- Stable. Hgb is improved from prior.
- Continue to follow.
DVT Prophylaxis: On Eliquis
Code Status: Full
--- NOTE | 2023-07-08 02:01 | EDRN ---
Patient incontinent to large amounts of liquid stool, patient cleaned up, rectal tube placed to drain patients stool to reduce skin breakdown, clean linen and brief placed, patient resting comfortably., call mullen in reach.
--- NOTE | 2023-07-08 03:00 | EDRN ---
Patient resting comfortably at this time, call mullen in reach, VSS
[2023-07-08] MEDS: DEXTROSE 50% SYRINGE 12.5 GRAMS IV ×5 (04:40→15:08)
[2023-07-08 04:46] LABS: Glucose - Point of Care 34 mg/dl (70-99)
--- NOTE | 2023-07-08 04:52 | EDRN ---
Patient was yelling out went into room patient had pulled off monitor and legs half over the rail, asked patient if he knew where he was he had no idea, checked patients blood sugar with results of 34, gave PRN order for dextrose and stayed with
patient, after giving dextrose few minutes later patient appears to know he is at [facility], carolineer texted Leah pace who is covering the floor to inform her of what happened. Repeat blood sugar was 73, feeding patient some juice and
something to eat as well.
[2023-07-08] MEDS: TUMS 1 TABLET PO ×3 (05:01→23:44)
[2023-07-08 05:03] LABS: Glucose - Point of Care 73 mg/dl (70-99)
--- NOTE | 2023-07-08 05:04 | EDRN ---
Patient was able to drink a 4oz apple juice/.
--- NOTE | 2023-07-08 05:43 | EDRN ---
Came in to do morning labs, while drawling blood re-checked blood sugar, blood sugar was 48, gave 12.5g Dextrose per prn order, updated shaan pace np covering med. surg. patients. will encourage patient to have something to eat.
[2023-07-08] MEDS: FIRVANQ 125 MG PO ×4 (05:48→23:52)
[2023-07-08 05:49] LABS: Glucose - Point of Care 48 mg/dl (70-99)
[2023-07-08 05:49] LABS: Hematocrit 29.9 % (39.0-52.0); Hemoglobin 9.5 g/dL (13.0-18.0); Mean Corp Hgb Conc. 31.8 g/dL (33.0-37.0); Mean Corpuscular Volume 88.2 fL (80.0-94.0); Mean Platelet Volume 8.6 fL (7.4-10.4); Platelet Count 663 10^3/uL (130-400); Red Blood Cell Count 3.39 10^6/uL (4.70-6.10); Red Cell Dist. Width 14.7 % (11.5-14.5); White Blood Cell Count 17.3 10^3/uL (4.8-10.8)
[2023-07-08 06:31] LABS: Blood Urea Nitrogen 42 mg/dl (9-20); Calcium 8.5 mg/dl (8.4-10.2); Carbon Dioxide 26 mmol/L (22-30); Chloride 97 mmol/L (98-107); Estimated Creatinine Clearance 21 ml/min; Glucose 42 mg/dl (70-99); Potassium 3.4 mmol/L (3.5-5.1); Sodium 136 mmol/L (135-145); eGFR 15.73
[2023-07-08 06:32] LABS: Glucose - Point of Care 78 mg/dl (70-99)
--- NOTE | 2023-07-08 07:04 | EDRN ---
Report given to Chidi Jefferson
[2023-07-08 07:16] LABS: Glucose - Point of Care 71 mg/dl (70-99)
[2023-07-08] MEDS: D10W 1000 IV ×3 (08:04→22:49)
[2023-07-08] MEDS: FLAGYL 500 MG PO ×3 (08:10→23:34)
[2023-07-08] MEDS: LOW STRENGTH ASPIRIN 81 MG PO (08:10)
[2023-07-08] MEDS: PLAVIX 75 MG PO (08:10)
[2023-07-08] MEDS: ELIQUIS 2.5 MG PO ×2 (08:10→20:20)
[2023-07-08] MEDS: TYLENOL 1000 MG PO ×3 (08:10→23:34)
[2023-07-08] MEDS: NORVASC 10 MG PO (08:11)
[2023-07-08] MEDS: LOPRESSOR 25 MG PO ×2 (08:11→20:20)
[2023-07-08 09:07] LABS: Glucose - Point of Care 58 mg/dl (70-99)
[2023-07-08 09:26] LABS: Glucose - Point of Care 60 mg/dl (70-99)
[2023-07-08 09:44] LABS: Glucose - Point of Care 62 mg/dl (70-99)
[2023-07-08 10:16] LABS: Glucose - Point of Care 103 mg/dl (70-99)
--- NOTE | 2023-07-08 10:19 | W.PN.HOSP.TC ---
Today's Communication/Plan
-
D10 continues
monitor BGL
transfer to telemetry
IV Cefazolin
oral vanc and flagyl
no octreotide given recent C. Diff
Assessment / Plan
Assessment / Plan
Patient is a 68y M with PMH significant for osteomyelitis / discitis, LUIS ANGEL requiring HD, DM-II and recent admission for encephalopathy and C Diff colitis who presents to ED from [place] for evaluation of hypoglycemic episodes.
Hypoglycemia
DM-II
- Admitedt for further evaluation and treatment.
- Hypoglycemia secondary to oral hypoglycemic agents.
- remains hypoglycemic this AM
- hold glipizide and metformin now and at [place]
- considered Octreotide but cannot give with recent C. Diff and diarrhea yesteday
- Continue dextrose infusion for now and follow q2 AccuChecks until stable.
-encouraging intake complex carb diet - regular diet for now
- A1C during recent visit was 5.9%.
Right heel wound with bone exposed
-s/p wound care consult
-will obtain x-ray
-consult Podiatry
CDiff Colitis
- Continued diarrhea yesterday, resolved today with improving WBC
- Continue PO Vanco and Flagyl.
- if return of diarrhea would need ID consult for recurrent C. Diff
Lumbar Osteomyelitis / Discitis
- Stable. No complaints of back pain.
- No fevers / chills.
- Continue current cefazolin dosing.
- Follow for any new symptoms / complaints.
LUIS ANGEL now Requiring HD
- Patient developed LUIS ANGEL during initial hospitalization at [facility] and was initiated on HD.
- Now on T-H-Sat schedule.
- Nephrology evaluation for HD needs during hospital stay.
- monitor volume status closely, receiving D10
ASCVD
- Stable. Prior h/o PAD s/p RLE stenting.
- Continue current med regimen including DAPT, Eliquis, etc
Anemia of Chronic Disease
- Stable. Hgb is improved from prior.
- Continue to follow.
DVT Prophylaxis: On Eliquis
Code Status: Full
Anticipated Discharge: 24 - 48 hours
Subjective/Interval History
-
Date of Service: July 08, 2023
no further diarrhea today
states he doesn't want to eat because doesn't like the food
Objective Data
-
Labs:
Laboratory Results
07/07/23 07/08/23
23:20 05:32
WBC 22.9 H 17.3 H
Hgb 8.8 L 9.5 L
Hct 27.2 L 29.9 L
Plt Count 573 H D 663 H
Sodium 136 136
Potassium 3.1 L 3.4 L
Chloride 99 97 L
Carbon Dioxide 25 26
BUN 34 H 42 H
Creatinine 4.0 H 4.0 H
Glucose 81 42 L*
Calcium 8.3 L 8.5
Total Bilirubin 0.5
AST 26
ALT < 10
Alkaline Phosphatase 397 H
Vital Signs:
Vital Signs
Temp Pulse Resp BP Pulse Ox
97.8 F 85 13 120/64 98
07/08/23 07:45 07/08/23 08:11 07/08/23 06:30 07/08/23 08:11 07/08/23 07:45
I&O
07/07/23 07/08/23 07/09/23
06:59 06:59 06:59
Intake Total 300 / 300
Balance 300 / 300
Review of Systems
-
History Source: Patient
All other systems: Reviewed and negative
Physical Exam
-
General: No Apparent Distress and Comfortable
HEENT: Negative Oxygen
GI: Soft and Other (Fecal managment system); Negative Nontender or Nondistended
Musculoskeletal: No Edema and Other (Right heel dressing in place)
Neuro: Awake, Alert, Oriented, No Motor Deficits and Nonfocal/Grossly Intact
Psych: Calm
Data Reviewed
-
Diagnostic Radiology: Report Reviewed by me
Labs: Labs Reviewed by me
--- NOTE | 2023-07-08 10:41 | W.CON.NEPH ---
Consultation
-
Date/Time Consultation Requested: July 08, 2023 9 AM
Date/Time Consultation Performed: 07/08/2023 10:40 AM
Requesting Provider: Dr. Ocampo
Performing Provider: Dr. Villegas
Reason for Consultation: ESRD
Medical History
-
Chief Complaint: ESRD
History of Present Illness:
Mr. Hairston is a 68YOM with PMH of LUIS ANGEL resulting in ESRD on HD, chronic anemia, PAD (chronic R heel wound), diabetes, laminectomy for epidural abscess, chronic pain (on opioids), GERD who presents to the hospital after finding multiple hypoglycemic
episodes. He had previously been at [facility] where he was treated for L2-L3 epidural abscess and discitis as well as a psoas abscess. he underwent lumbar laminectomy and drainage on 06/12 at [facility]. He developed an LUIS ANGEL requiring HD. LUIS ANGEL was
thought to be 2/2 to post infectious GN vs. ATN. He also had C. difficile diarrhea on antibiotics currently.
His sugars have improved though on a high rate D10 drip.. He says that he had dialysis yesterday without issue.
Medications include metformin and glipizide which were discontinued at last hospitalization
Past Medical History
LUIS ANGEL (now HD)
ESRD
chronic anemia
PAD (chronic R heel wound)
diabetes
laminectomy for epidural abscess
chronic pain (on opiods)
GERD
HTN
Hyponatremia
Past Medical History: Other
Past Surgical History: Other (laminectomy)
Social History
Tobacco: Non-Smoker
Alcohol: None
Drug: None
Living: Shelter
Family History
Family History: Not Pertinent
Allergies / Home Medications
Allergy/AdvReac Type Severity Reaction Status Date / Time
No Known Allergies Allergy Verified 07/07/23 22:43
�Medication �Instructions �Recorded �Confirmed �Type
acetaminophen 500 mg tablet 1,000 mg PO TID Pain 06/29/23 07/07/23 History
amlodipine 10 mg tablet 10 mg PO DAILY Blood Pressure 06/29/23 07/07/23 History
apixaban 2.5 mg tablet 2.5 mg PO BID Blood Clot 06/29/23 07/07/23 History
Prevention/Tx
aspirin 81 mg chewable tablet 81 mg PO DAILY Blood Clot 06/29/23 07/07/23 History
Prevention/Tx
bisacodyl 10 mg rectal suppository 10 mg TN DAILY PRN if no results 06/29/23 07/07/23 History
for MOM
cholecalciferol (vitamin D3) 25 25 mcg PO DAILY Supplement 06/29/23 07/07/23 History
mcg (1,000 unit) tablet
clopidogrel 75 mg tablet 75 mg PO DAILY Blood Clot 06/29/23 07/07/23 History
Prevention/Tx
glipizide 5 mg tablet 5 mg PO BID Diabetes 06/29/23 07/07/23 History
lidocaine 4 % topical patch 1 patch topical DAILY lower back 06/29/23 07/07/23 History
magnesium hydroxide 400 mg/5 mL 30 ml PO HSPRN PRN if no BM in 3 06/29/23 07/07/23 History
oral suspension (Milk of [employer]) days
metformin 500 mg tablet 500 mg PO BID Diabetes 06/29/23 07/07/23 History
metoprolol tartrate 25 mg tablet 25 mg PO BID Blood Pressure 06/29/23 07/07/23 History
pantoprazole 40 mg tablet,delayed 40 mg PO DAILY Gastrointestinal 06/29/23 07/07/23 History
release Issue
oxycodone 10 mg tablet 10 mg PO Q6H PRN mod sev pain #14 07/03/23 07/07/23 Rx
tabs
metronidazole 500 mg tablet 500 mg PO TID #15 tabs 07/04/23 07/07/23 Rx
vancomycin 125 mg capsule 125 mg PO Q6H #90 caps 07/04/23 07/07/23 Rx
cefazolin 10 ml IV MOWE 07/07/23 07/07/23 History
cefazolin 15 ml IV FR 07/07/23 07/07/23 History
Review of Systems
-
No chest pain or shortness of breath. No abdominal pain. No fevers.
All other systems: Negative unless noted
Physical Exam
Vital Signs
Vital Signs
Temp Pulse Resp BP Pulse Ox
97.8 F 85 13 120/64 98
07/08/23 07:45 07/08/23 08:11 07/08/23 06:30 07/08/23 08:11 07/08/23 07:45
Lab Results
WBC 17.3 10^3/uL (4.8-10.8) H 07/08/23 05:32
RBC 3.39 10^6/uL (4.70-6.10) L 07/08/23 05:32
Hgb 9.5 g/dL (13.0-18.0) L 07/08/23 05:32
Hct 29.9 % (39.0-52.0) L 07/08/23 05:32
Plt Count 663 10^3/uL (130-400) H 07/08/23 05:32
Sodium 136 mmol/L (135-145) 07/08/23 05:32
Potassium 3.4 mmol/L (3.5-5.1) L 07/08/23 05:32
Chloride 97 mmol/L (98-107) L 07/08/23 05:32
Carbon Dioxide 26 mmol/L (22-30) 07/08/23 05:32
BUN 42 mg/dl (9-20) H 07/08/23 05:32
Creatinine 4.0 mg/dL (0.7-1.3) H 07/08/23 05:32
eGFR 15.73 07/08/23 05:32
Glucose 42 mg/dl (70-99) L* 07/08/23 05:32
Calcium 8.5 mg/dl (8.4-10.2) 07/08/23 05:32
Albumin 2.4 g/dl (3.5-5.0) L 07/07/23 23:20
Physical Exam
Patient is awake alert oriented and in no distress. Mood and affect were pleasant, insight and judgment were good. Pupils are equal round and reactive to light, extraocular movements are intact, sclera were anicteric. Hearing was normal, ears and
nose are intact. Oropharynx was clear. Neck was supple with trachea midline and no thyromegaly. Heart was regular rate and rhythm without rubs. Lower extremities without edema. Lungs were clear to auscultation bilaterally and with normal
excursion. Abdomen was soft, nontender, with normal active bowel sounds, and no hepatosplenomegaly. Skin was without rash and with normal turgor.
Right sided dialysis catheter in place
Data Reviewed
-
Radiology: Image Personally Visualized and interpreted (Chest x-ray on July 06, 2020 by my read shows cardiomegaly no active disease)
Medical Tests (Nuc Med, Echo etc): Image Personally Visualized and interpreted (EKG on July 07, 2023 by my reading shows normal sinus rhythm PACs, nonspecific ST-T wave changes)
Labs: Labs Reviewed by me (WBC 17.3, hemoglobin 9.5, platelets 663, sodium 136, potassium 3.4, bicarb 26, creatinine 4, glucose 42)
Assessment/Plan
-
Assessment:
ESRD
Anemia
Cdiff colitis
Hypoglycemia
Recent epidural/psoas abscess
chronic R heel wound
Plan:
plan for HD tomorrow
Continue antibiotics for C. difficile
Discontinue metformin and glipizide
Continue IV fluids with dextrose as required
--- NOTE | 2023-07-08 11:39 | WOUNDNOTE ---
SACRUM AND LOWER BACK
--- NOTE | 2023-07-08 11:40 | WOUNDNOTE ---
R HEEL LATERAL VIEW
--- NOTE | 2023-07-08 11:40 | WOUNDNOTE ---
R FOOT/DORSAL ANKLE
--- NOTE | 2023-07-08 11:42 | WOUNDNOTE ---
WON RN note: Patient admitted with recurrent hypoglycemia and +C diff. Patient admitted from [facility].
See H&P for complete history.
PMH: ESRD on HD(M W F), 04/2022 RLE (bypass?) and R heel ulcer I+D surgery at [facility] Dr. Ortiz vascular surgeon, last followup was 06/25/23 as per patient. Anemia, metabolic encephalopathy, NIDDM, laminectomy, HTN, chronic pain, GERD, on Eliquis.
Wound Location and type/assessment: Patient admitted with: Full thickness diabetic/PAD, surgical R plantar/ lateral heel ulcer, bone exposed, barnett mixed with black eschar. Patient seen last admission for same wound on 06/30/23, since then wound looks
worse and has a foul odor. X ray suspects osteomyelitis. R dorsal foot old dry scab now open with shallow wound, suspect abrasion. L heel is intact. Patient able to turn on own, sacrum blanchable red, incontinent of small amt of stool. Lower lumbar
area with scarring from old Laminectomy. Patient is unsure of what sort of dressing is being used at [place] and states he has not been using offloading heel boot that was ordered last admission. NWB to RLE maintained states patient.
Appetite: Fair, had half of breakfast.
Pressure redistribution devices in place: [employer] Accumax. Patient is able to turn to sides, rolled blanket under R calf for now, called [facility] for TruVue lite offloading heel boot. Asked nurse Aaron to apply when arrives.
Plan: Dry dressing changed to R heel, offloaded heel. Recommended to Dr. Maher Podiatry consult, consult placed to Dr. Harris. Will follow along and adjust wound care as needed.
Will confirm orders with Dr. Maher and updated RN. Care plan to be updated.
[2023-07-08 12:21] LABS: Glucose - Point of Care 62 mg/dl (70-99)
[2023-07-08 12:43] LABS: Glucose - Point of Care 53 mg/dl (70-99)
[2023-07-08 13:12] LABS: Glucose - Point of Care 51 mg/dl (70-99)
[2023-07-08 13:40] LABS: Glucose - Point of Care 79 mg/dl (70-99)
[2023-07-08] MEDS: D10W IV (14:11)
[2023-07-08 14:41] LABS: Glucose - Point of Care 59 mg/dl (70-99)
--- NOTE | 2023-07-08 14:55 | W.PN.UPDATE ---
Addendum entered and electronically signed by Maria Isabel Maher MD 07/08/23 17:11:
patient now BGL in 40's
I [address] Dr. Bhatt. Given appearance of abdominal x-ray she is OK with Octreotide
I have ordered 3 doses
Addendum entered and electronically signed by Maria Isabel Maher MD 07/08/23 15:11:
I went to see patient again. I told him he cannot be nonchalant about eating as this can be life-threatening. To ensure no acute abdominal pathology with lack of appetite and recent C. Diff will obtain abdominal x-ray. I will give protonix 40mg
IV x 1 and we discussed him sitting more upright in case reflux contributing.
If x-ray OK we will continue to encourage oral diet
patient refusing juice and we are needing to give D50; I increased rate of D10 - patient does not look volume overloaded - need to monitor closely.
Original Note:
Update Note
Progress Note Update
Patient's BGL persistently low. Reviewed case with Dr. Jerome (endocrinologY). confirms continue plan - try to push PO intake
no indication for octreotide (and again wouldn't give given C. Diff)
--- NOTE | 2023-07-08 15:20 | CON.ID ---
Consultation
-
Date/Time Consultation Requested: 07/08/23 14:37
Date/Time Consultation Performed: 07/08/23 15:20
Requesting Provider: Dr Maher
Performing Provider: Dr Bhatt
Reason for Consultation: C diff
Chief Complaint / Past History
Chief Complaint
Hypoglycemia
History of Present Illness
Mr Hairston is a 68 year old male with recent admission to [facility] for L2:L3 discitis/epidural abscess s/p laminectomy 06/12, course complicated by post infectious GN vs ATN now on HD via tunneled line on and chronic right heel
wound on cefazolin for planned course - 8 weeks - through 08/09/23. His course has been complicated by C difficile with diarrhea and he was treated with oral vancomycin/metronidazole with plan to complete oral vanc QID 07/13 and then switch to oral
vanc BID as suppression while on cefazolin. He was referred here today for severe hypoglycemia with glucose values in the 20s / 30s despite supplemental glucagon, juice. He was given D50 by EMS and his glucose increased to 165 however he is
requiring a D10 drip to maintain his sugars. SUPPORT SERVICES MANAGER patient was on sulfonylurea and metformin at the [place] which were held here due to hypoglycemia. Patient reports diarrhea 07/06 which has resolved thus far today.
Since arrival wbc was initially 22 now 17, hgb 9.5, plt 663, L shift was noted on arrival, K 3.4, cr 5, glucose this AM remained 42 and he has been hypoglycemic throughout today - endocrinology has been consulted, foot xray today: There is loss of
bony substance of the adjacent posterior and inferior aspect of the calcaneus, and radiographic findings are highly suggestive of osteomyelitis. 07/06 CXR: clear lungs, no additional microbiology sent, 06/28 C diff antigen and toxin positive.
Past History
Additional Past Medical History:
Lumbar Osteomyelitis / Discitis
Psoas Abscess
DM-II
LUIS ANGEL requiring HD
ASCVD / PAD
Chronic Right Heel Wound
Hypertension
GERD
Anemia of Chronic Disease
Chronic Indwelling Mccloud
Additional Past Surgical History:
Lumbar Laminectomy
RLE Angio / Stent
R IJ Tunneled HD Catheter
Allergy History:
No Known Allergies Allergy (Verified 07/07/23 22:43)
Medications Reviewed: Yes
Social History
Tobacco: Non-Smoker
Alcohol: None
Drug: None
Family History
Family History: Not Pertinent
Review of Systems
Review of Systems
General: Negative Fever or Chills
All systems: All other systems were reviewed and were negative
Vital Signs
Temp Pulse Resp BP Pulse Ox
98.3 F 85 16 112/62 100
07/08/23 15:15 07/08/23 15:15 07/08/23 15:15 07/08/23 15:15 07/08/23 15:15
Physical Exam
Physical Exam
Constitutional: No Acute Distress and Chronically Ill
Cardiovascular: Regular Rate and S1/S2; Negative Murmur or Rub
Pulmonary: Clear and Symmetric; Negative Wheezes, Rales or Rhonchi
Gastrointestinal: Soft, Non Tender, Non Distended and Normal Bowel Sounds
Skin: Warm and Dry; Negative Rash or Jaundice
Lab / Diagnostic Study Results
07/08/23 05:32
07/08/23 05:32
Abs Immat Gran (auto) 0.4 10^3/uL (0-0.05) H 07/07/23 23:20
Absolute Neuts (auto) 19.6 10^3/uL (1.4-6.5) H 07/07/23 23:20
Absolute Lymphs (auto) 1.3 10^3/uL (1.2-3.4) 07/07/23 23:20
Absolute Monos (auto) 1.5 10^3/uL (0.1-0.6) H 07/07/23 23:20
Absolute Basos (auto) 0.1 10^3/uL (0-0.2) 07/07/23 23:20
Immature Gran % 1.7 % (0-0.5) H 07/07/23 23:20
Neutrophils % 85.7 % (42.2-75.2) H 07/07/23 23:20
Lymphocytes % 5.6 % (20.5-51.1) L 07/07/23 23:20
Monocytes % 6.5 % (1.7-9.3) 07/07/23 23:20
Eosinophils % 0.2 % (0-6) 07/07/23 23:20
Basophils % 0.3 % (0-2) 07/07/23 23:20
Assessment / Plan
Diarrhea
Recent diagnosis of C difficile
Persistent hypoglycemia
- diarrhea could relate to glipizide, metformin, persistent C difficile or a combination thereof
- recheck C difficile if further diarrhea
- AXR: my read no evidence of megacolon
- continue oral vanc/metro as prescribed
- ok for PPI given comorbidities
- enhanced precautions
Probable Osteomyelitis of the heel of the right foot
- podiatry has been consulted
- at [place] known to Dr Stevens (vascular) and Dr Olvera (plastic) - left message to notify Dr Stevens of his admission at patient request
- continue wound care
L2-L3 and possibly L3-L4 Discitis, Osteomyelitis
Epidural abscess from L1- sacrum, s/p laminectomy 06/12
Psoas Abscesses bilaterally
MSSA Bacteremia - cleared
LUIS ANGEL: ATN vs PIGN
- blood cultures x2 in progress no growth to date
- continue cefazolin for planned course - 8 weeks - through 08/09/23
--- NOTE | 2023-07-08 15:23 | PTCARENOTE ---
MD hanson has been aware of pts blood sugars throughout the shift. MD hanson just left bedside after reassessment. pt slotted for IMU level of care.
[2023-07-08] MEDS: PROTONIX IV 40 MG IV (15:32)
[2023-07-08] MEDS: NSS (PRESERVATIVE FREE) 10 ML IV (15:32)
[2023-07-08 15:33] LABS: Glucose - Point of Care 75 mg/dl (70-99)
[2023-07-08 17:18] LABS: Glucose - Point of Care 46 mg/dl (70-99)
[2023-07-08 17:47] LABS: Glucose - Point of Care 39 mg/dl (70-99)
[2023-07-08] MEDS: SANDOSTATIN 50 MCG SC ×2 (17:53→23:35)
[2023-07-08 18:35] LABS: Glucose - Point of Care 52 mg/dl (70-99)
[2023-07-08] MEDS: ANCEF 10 IV (18:41)
[2023-07-08 18:58] LABS: Glucose - Point of Care 60 mg/dl (70-99)
--- NOTE | 2023-07-08 19:23 | PTCARENOTE ---
Received from [facility], IMU monitors placed, admission kindly completed by other RN. Accu checks low see hypoglycemic / hyperglycemic flowsheet. SC Octreotide administered. Relayed accu check results and actions to Dr. Maher. AAOx3 c/o pain back 10/27.
LCTA remains on RAIR. VAT team here to replaced IV site- D10 infusing at 150ml/hr. Incont. of smear stool. Mccloud intact- has scant amt of pink tinged urine 10ml in bag. Wounds noted. Foul smell coming from heel area- supplies at bedside.
Call mullen intact.
[2023-07-08 19:30] LABS: Glucose - Point of Care 114 mg/dl (70-99)
[2023-07-08] MEDS: ROXICODONE 10 MG PO (20:21)
[2023-07-08 20:31] LABS: Glucose - Point of Care 157 mg/dl (70-99)
[2023-07-08 22:39] LABS: Glucose - Point of Care 224 mg/dl (70-99)
[2023-07-08] MEDS: PEPCID 20 MG PO (23:34)
[2023-07-09] VITALS (33 sets, daily range): BP systolic 72–127; BP diastolic 25–89; BMI 27.0
[2023-07-09 00:27] LABS: Glucose - Point of Care 245 mg/dl (70-99)
--- NOTE | 2023-07-09 02:12 | PTCARENOTE ---
Pt glucose normalizing. Night TOOL OPERATOR made aware, D10 on hold. Pt had complaints of pain and indigestion, PRN medications given (see MAR). During assessment incisions and small puncture on back seen with clear sutures intact. Assessment care and vitals
as charted.
[2023-07-09] MEDS: TUMS 1 TABLET PO ×2 (02:57→11:27)
[2023-07-09 02:59] LABS: Glucose - Point of Care 227 mg/dl (70-99)
--- NOTE | 2023-07-09 05:18 | W.PN.UPDATE ---
Update Note
Progress Note Update
Throughout the night blood glucoses normalizing and no longer hypoglycemic. Trialed pt with lower ivf rate, then holding ivf x 2 hr and glucoses remained good.
D10 infusion stopped and accuchecks changed to q4h. If accuchecks remain stable can likely transition to ac and hs
[2023-07-09] MEDS: FIRVANQ 125 MG PO ×3 (05:22→16:55)
[2023-07-09 05:35] LABS: % Basophils 0.3 % (0-2); % Eosinophils 0.8 % (0-6); % Immature Granulocytes 3.7 % (0-0.5); % Lymphocytes 11.9 % (20.5-51.1); % Monocytes 7.3 % (1.7-9.3); Absolute Basophils 0.1 10^3/uL (0-0.2); Absolute Eosinophils 0.2 10^3/uL (0-0.7); Absolute Immature Granulocytes 0.7 10^3/uL (0-0.05); Absolute Lymphocytes 2.1 10^3/uL (1.2-3.4); Absolute Monocytes 1.3 10^3/uL (0.1-0.6); Absolute Neutrophils 13.7 10^3/uL (1.4-6.5); Mean Corp Hgb Conc. 32.1 g/dL (33.0-37.0); Mean Corpuscular Hgb 28.2 pg (27.0-31.0); Mean Platelet Volume 8.6 fL (7.4-10.4); Nucleated Red Blood Cells % 0 % (-); Platelet Count 482 10^3/uL (130-400); Red Blood Cell Count 2.16 10^6/uL (4.70-6.10); Red Cell Dist. Width 14.5 % (11.5-14.5)
[2023-07-09 05:36] LABS: Hemoglobin 6.1 g/dL (13.0-18.0)
--- NOTE | 2023-07-09 06:17 | PTCARENOTE ---
Pt morning labs coming back critical, hgb 6.1 hct 19. Pt Asymptomatic at this time. Night OPERATIONS STAFF SPECIALIST SECURITY made aware. orders placed.
--- NOTE | 2023-07-09 06:21 | W.PN.UPDATE ---
Update Note
Progress Note Update
hemoglobin this am 6.1
blood consent explained to pt and obtained. will order type and screen and order one unit PRBC
octreatide dc'd as blood glucoses stable
[2023-07-09] MEDS: ROXICODONE 10 MG PO ×3 (06:30→20:41)
[2023-07-09 06:42] LABS: Glucose - Point of Care 208 mg/dl (70-99)
[2023-07-09 07:28] LABS: Glucose - Point of Care 210 mg/dl (70-99)
--- NOTE | 2023-07-09 08:00 | CON.MD ---
Consultation - Medical
-
Consulted for 68 year old male with chronic right heel ulceration. L2-L3 laminectomy 06/12 at [facility] with post op discitis/epidural abscess and renal complications requiring HD. 8 week course of Cefazolin planned through 08/09/23. He
also contracted C. diff with diarrhea treated with vanco/metronidazole. Admitted for severe hypoglycemia which was treated but now requires D10 drip to maintain normal blood glucose levels.
PMH includes type 2 diabetes mellitus, LUIS ANGEL on HD, PAD status post RLE Angioplasty and stent placement. Patient has no known allergies.
WBC 22 with left shift noted on admission, now decreased to 17, currently afebrile, HgbA1c 9.5%
Right foot radiographs show large posterior and inferior soft tissue defect with osseous changes highly suggestive of osteomyelitis
On exam pedal pulses absent right, palpable Left DP. Right heel painful to touch with mild to moderate edema, toes cold to touch and skin with mottled appearance. Right heel ulcer 4x6 cm plantar, lateral and posterior heel with serous drainage and
mild malodor. Plantar fat pad is completely gone with bone exposed along the entire surface of the wound but no undermining or tunneling to adjacent compartments noted. Wound edges necrotic. Mild surrounding soft tissue erythema present but no
obvious ascending cellulitis.
Impression/Plan
-Chronic right heel ulcer
Likely osteomyelitis based on radiographic evaluation and bone exposure through the wound
Surgical debridement performed by vascular surgery at [facility]
With history of PAD and stent placement, wound appearance and size, wound has low probability of responding to local care and antibiotic therapy. LLE amputation may be required.
-Lumbar spine osteomyelitis with epidural abscess status post laminectomy 06/13/23 at [facility]
Cefazolin 8 week course
-Diabetes Mellitus
-LUIS ANGEL on HD
-C difficile with diarrhea
-Persistent hypoglycemia
[2023-07-09] MEDS: PLAVIX 75 MG PO (08:24)
[2023-07-09] MEDS: LOW STRENGTH ASPIRIN 81 MG PO (08:24)
[2023-07-09] MEDS: NORVASC 10 MG PO (08:24)
[2023-07-09] MEDS: FLAGYL 500 MG PO ×2 (08:24→20:38)
[2023-07-09] MEDS: TYLENOL 1000 MG PO ×3 (08:27→23:09)
[2023-07-09] MEDS: LOPRESSOR 25 MG PO ×2 (08:28→20:39)
--- NOTE | 2023-07-09 09:24 | W.PN.ID1 ---
Date of Service
Date of Service: July 09, 2023
Today's Communication
see plan
Assessment / Plan
Diarrhea
Recent diagnosis of C difficile
Persistent hypoglycemia - resolved
- diarrhea could relate to glipizide, metformin, persistent C difficile or a combination thereof
- recheck C difficile if further diarrhea
- AXR: my read no evidence of megacolon; awaiting formal read
- continue oral vanc 125 mg QID, adjusted metro to 500 BID - leukocytosis improving; if C diff is negative then would plan for previous course with today being final day of metronidazole and oral vancomycin continuing to 07/12; if C diff positive
then would plan oral vanc taper over 6 weeks starting now
- week 1: oral vanc 125 QID
- week 2: oral vanc 125 TID
- week 3: oral vanc 125 BID
- week 4: oral vanc 125 mg Qday
- week 5: oral vanc 125 mg Q48 hrs
- week 6: oral vanc 125 mg Q72 hrs then stop.
- ok for PPI given comorbidities
- enhanced precautions
Probable Osteomyelitis of the heel of the right foot
- podiatry has been consulted - appreciate their input
- at [place] known to Dr Stevens (vascular) and Dr Olvera (plastic) - left message to notify Dr Stevens of his admission at patient request on 07/08
- continue wound care
- would agree that amputation is the most likely outcome; no urgent findings of cellulitis. If bone cannot be covered by human tissue then antibiotic treatments are futile for this indication.
- could follow up with his vascular surgeon in about 1 week from my perspective
L2-L3 and possibly L3-L4 Discitis, Osteomyelitis
Epidural abscess from L1- sacrum, s/p laminectomy 06/12
Psoas Abscesses bilaterally
MSSA Bacteremia - cleared
LUIS ANGEL: ATN vs PIGN
- blood cultures x2 in progress no growth to date
- continue cefazolin for planned course - 8 weeks - through 08/09/23
- outpatient follow up with patients [facility] physicians
Hgb drop management per IM service
Chief Complaint
-: Other (diarrhea)
Subjective / Review of Systems
afebrile
bp stable
watery BM noted yesterday
wbc 18
hgb dropped to 6
thrombocytosis improving
glucose improved overnight
AXR awaiting formal read
stool not yet sent for c diff
Vital Signs / Physical Exam
Vital Signs
Vital Signs
Temp Pulse Resp BP Pulse Ox
98.4 F 80 15 120/78 97
07/09/23 07:18 07/09/23 08:00 07/09/23 08:00 07/09/23 08:00 07/09/23 04:00
Physical Exam
Constitutional: No Acute Distress and Chronically Ill
Cardiovascular: Regular Rate and S1/S2; Negative Murmur or Rub
Pulmonary: Clear and Symmetric; Negative Wheezes or Rales
Gastrointestinal: Soft, Non Tender, Non Distended and Normal Bowel Sounds
Skin: Warm and Dry; Negative Rash or Jaundice
Objective Data
Lab Data
Lab Results
07/09/23 05:27
Estimated Creat Clear 21 ml/min 07/08/23 05:32
Total Bilirubin 0.5 mg/dl (0.2-1.3) 07/07/23 23:20
AST 26 U/L (17-59) 07/07/23 23:20
ALT < 10 U/L (0-50) 07/07/23 23:20
Alkaline Phosphatase 397 U/L (38-126) H 07/07/23 23:20
Most recent labs reviewed.
--- NOTE | 2023-07-09 10:14 | W.PN.HOSP.TC ---
Today's Communication/Plan
-
transfuse pRBC today
if blood sugars stay stable, likely back to SNF tomorrow
Assessment / Plan
Assessment / Plan
Patient is a 68y M with PMH significant for osteomyelitis / discitis, LUIS ANGEL requiring HD, DM-II and recent admission for encephalopathy and C Diff colitis who presents to ED from [place] for evaluation of hypoglycemic episodes.
Type 2 DM with Hypoglycemia likely from medications (oral hypoglycemic agents)--hold glipizide and metformin now and at [place]--s/p 2 doses of octreotide--s/p dextrose infusion---encouraging intake complex carb diet --A1C during recent visit was 5.9%.
Right heel wound with bone exposed--s/p wound care consult--will obtain x-ray--apprec Podiatry
C. Diff Colitis--Continued diarrhea yesterday, resolved today with improving WBC--Continue PO Vanco and Flagyl--if return of diarrhea would need ID consult for recurrent C. Diff
Lumbar Osteomyelitis/Discitis--Stable. No complaints of back pain--No fevers/chills--Continue current cefazolin dosing.
LUIS ANGEL now Requiring HD--Patient developed LUIS ANGEL during initial hospitalization at [facility] and was initiated on HD--Now on T-H-Fri schedule--Nephrology evaluation for HD needs during hospital stay.
ASCVD--Stable. Prior h/o PAD s/p RLE stenting--Continue current med regimen including DAPT, Eliquis, etc
Anemia of Chronic Disease--HGB dropped--Stable--Hgb is improved from prior---Continue to follow.
DVT Prophylaxis: On Eliquis
Code Status: Full
Anticipated Discharge: 24 - 48 hours
Subjective/Interval History
-
Date of Service: July 09, 2023
pt c/o of an 'old world war II injury'
Objective Data
-
Labs:
Laboratory Results
07/09/23 07/09/23 07/09/23
04:51 05:27 07:00
WBC Cancelled 18.0 H
Hgb Cancelled 6.1 L* D
Hct Cancelled 19.0 L*
Plt Count Cancelled 482 H D
Sodium Pending
Potassium Pending
Chloride Pending
Carbon Dioxide Pending
Vital Signs:
max temp for 24 hours
07/08/23
22:57
Temp 98.7 F
Vital Signs
Temp Pulse Resp BP Pulse Ox
98.4 F 80 15 120/78 97
07/09/23 07:18 07/09/23 08:00 07/09/23 08:00 07/09/23 08:00 07/09/23 04:00
I&O
07/08/23 07/09/23 07/10/23
06:59 06:59 06:59
Intake Total 2940 / 2940
Output Total 275 / 275
Balance 2665 / 2665
Review of Systems
-
All other systems: Reviewed and negative (pain)
Physical Exam
-
General: Well Developed, Well Nourished and No Apparent Distress
HEENT: Normocephalic and Atraumatic
Respiratory: Clear to Auscultation; Negative Wheezes or Rhonchi
Cardiac: Regular Rhythm and S1/S2; Negative Murmur
GI: Soft, Nontender, Nondistended and Normal Bowel Sounds
Musculoskeletal: No Clubbing, No Cyanosis and No Edema
Neuro: Awake
--- NOTE | 2023-07-09 10:17 | CM ---
Patient seen at bedside with physician. Patient is ST, at [facility] but patient is there not as a bed hold per Ab and liaison at [facility]. Per admissions patient is able to return when medically appropriate. Received HD . CM will
update patient sister regarding plan.
Plan: Discharge back to [facility] when medically stable.
Call report to: [phone]
Fax report to: [phone]
[2023-07-09] MEDS: ELIQUIS 2.5 MG PO (11:25)
--- NOTE | 2023-07-09 11:29 | WOUNDNOTE ---
MARZENA RN NOTE: Reviewed Podiatry note, no change in wound care. Patient has Donald Shavonne lite offloading heel boot at bedside, nurse Roxana states patient refusing to use it. Will follow next week if able and patient still here.
[2023-07-09 12:09] LABS: Glucose - Point of Care 132 mg/dl (70-99)
[2023-07-09 13:40] LABS: Carbon Dioxide 22 mmol/L (22-30); Chloride 93 mmol/L (98-107); Potassium 4.4 mmol/L (3.5-5.1); Sodium 125 mmol/L (135-145)
[2023-07-09] MEDS: MANNITOL 25% 12.5 GRAMS IV (15:02)
[2023-07-09] MEDS: RETACRIT 6000 UNITS IV (15:02)
[2023-07-09] MEDS: FLEXBUMIN 25% FOR HEMODIALYSIS 12.5 GRAMS IV (15:03)
--- NOTE | 2023-07-09 15:38 | W.PN.NEPH.HD ---
Assessment
-
d/c [place] today
Progress Note - Hemodialysis
-
Date of Service: July 09, 2023
Duration: 30 minutes and 3 hours
Potassium Bath: 3
Calcium Bath: 2.5
Opti-Dialyzer: 160
Ultrafiltration: Other
Blood Flow: 400
Dialysate Flow: 600
[2023-07-09] MEDS: HEPARIN 4300 UNITS INTRACATH (15:59)
--- NOTE | 2023-07-09 16:44 | PTCARENOTE ---
AAOx2-3 very forgetful- had same conversation today 3 times on POC. Hgb noted this am - PRBC ordered and given with HD. C/o pain back and buttocks- 7/10 Lexi given x1 today and scheduled Tylenol administered. Tele shows SR/ PACs PVCs multifocal
and few paroxysmal SVT 6 secs long. Metoprolol given, Hydralazine held for HD. Appetite fair - requested TUMs x1 today. Erick held this am for noted drop in hgb- d/w provider and ok to give. 1200 Mod-Large loose tarry black stool today
(grossly heme positive) - TT out to provider. Mccloud intact. Prevalon boot applied to right foot.
--- NOTE | 2023-07-09 17:24 | PTCARENOTE ---
Mccloud removed- bladder scan 9pm.
[2023-07-09 17:26] LABS: Glucose - Point of Care 104 mg/dl (70-99)
[2023-07-09 22:08] LABS: Glucose - Point of Care 136 mg/dl (70-99)
--- NOTE | 2023-07-09 22:25 | W.PN.UPDATE ---
Addendum entered and electronically signed by MONICA Whitmore 07/10/23 00:32:
repeat HH 5.8
vitals stable. Will give one more unit PRBC.
may need to consider GI consult.
Hold eliquis for now
Original Note:
Update Note
Progress Note Update
RN reported that pt had black BM during day.
Questioning whether eliquis should be given or not. Will repeat HH now. PT was 6.1 this am and received one unit PRBC with HD today.
[2023-07-09 23:03] LABS: Hematocrit 17.7 % (39.0-52.0); Hemoglobin 5.8 g/dL (13.0-18.0)
[2023-07-09] MEDS: ELIQUIS PO (23:12)
--- NOTE | 2023-07-09 23:45 | PTCARENOTE ---
Addendum entered by Socorro Tran RN 07/10/23 04:22:
1 unit PRBC transfused with out incident, Pt tolerated well. Pt having multiple black/burgundy loose watery stools through out night. Vitals remain stable at this time.
Original Note:
Pt had heme positive stools. Swapnil held contacted night CLIENT SUPPORT CONSULTANT for H&H. Resulted critical hgb 5.8 hct 17.7, 1 unit PRBC ordered. Pt vitals remain stable at this time. Pt has no complaints of ABD pain on palpation. Pt does complain of indigestion that
is on going, prn Tums available.
[2023-07-10] VITALS (37 sets, daily range): BP systolic 108–137; BP diastolic 53–80; BMI 26.0
[2023-07-10] MEDS: FIRVANQ 125 MG PO ×5 (00:38→23:48)
[2023-07-10] MEDS: TUMS 1 TABLET PO ×2 (05:46→23:48)
[2023-07-10 06:09] LABS: Mean Corpuscular Volume 90.8 fL (80.0-94.0); Mean Platelet Volume 8.7 fL (7.4-10.4); Platelet Count 385 10^3/uL (130-400); Red Blood Cell Count 2.17 10^6/uL (4.70-6.10); Red Cell Dist. Width 14.4 % (11.5-14.5); White Blood Cell Count 16.4 10^3/uL (4.8-10.8)
[2023-07-10 06:34] LABS: ALT (SGPT) < 10 U/L (0-50); AST (SGOT) 14 U/L (17-59); Albumin 2.2 g/dl (3.5-5.0); Alkaline Phosphatase 211 U/L (38-126); Blood Urea Nitrogen 51 mg/dl (9-20); Carbon Dioxide 27 mmol/L (22-30); Chloride 101 mmol/L (98-107); Estimated Creatinine Clearance 24 ml/min; Glucose 72 mg/dl (70-99); Magnesium 1.8 mg/dl (1.6-2.3); Potassium 3.9 mmol/L (3.5-5.1); Sodium 135 mmol/L (135-145); Total Bilirubin 0.5 mg/dl (0.2-1.3); Total Protein 4.9 g/dl (6.3-8.2); eGFR 17.85
[2023-07-10 06:42] LABS: Hematocrit 19.7 % (39.0-52.0); Hemoglobin 6.5 g/dL (13.0-18.0)
--- NOTE | 2023-07-10 08:09 | PTCARENOTE ---
Addendum entered by Eddie Muller RN 07/10/23 17:59:
Patient with 2 more medium loose dark burgundy BMs since this morning, 3 total for day shift. Patient getting second unit of blood now. Continuing to monitor.
Original Note:
Patient AAOx2 with some confusion. Reoriented. Patient just had 1 large loose burgundy BM. Hgb 6.5, due for 1u PRBCs. No complaints except slight indigestion. NSR on monitor. VSS. Call mullen in reach, bed alarm activated. Will closely monitor.
--- NOTE | 2023-07-10 08:25 | W.PN.HOSP.TC ---
Today's Communication/Plan
-
consult GI
transfuse 3rd unit pRBC
NPO
hold Eliquis and plavix
follow H&H
Assessment / Plan
Assessment / Plan
Patient is a 68y M with PMH significant for osteomyelitis / discitis, LUIS ANGEL requiring HD, DM-II and recent admission for encephalopathy and C Diff colitis who presents to ED from [place] for evaluation of hypoglycemic episodes.
acute blood loss anemia on anemia of chronic disease--likely from GI source--passing burgundy stools--transfused (got 3 units in total)--consult GI--possible diverticular bleed?, no abdominal pain--NPO--follow H&H
Type 2 DM with Hypoglycemia likely from medications (oral hypoglycemic agents)--resolved---holding glipizide and metformin now and at [place]--s/p 2 doses of octreotide--s/p dextrose infusion--A1C during recent visit was 5.9%--NPO so may need D5 IVF
Right heel wound with bone exposed--s/p wound care consult--x-ray suggestive of osteomyelitis--apprec Podiatry
C. Diff Colitis-- improving WBC--Continue PO Vanco--if return of diarrhea would need ID consult for recurrent C. Diff
Lumbar Osteomyelitis/Discitis--Stable. No complaints of back pain--No fevers/chills--Continue current cefazolin dosing.
LUIS ANGEL now Requiring HD--Patient developed LUIS ANGEL during initial hospitalization at [facility] and was initiated on HD--Now on T-H-Sat schedule--Nephrology evaluation for HD needs during hospital stay.
ASCVD--Stable. Prior h/o PAD s/p RLE stenting--Continue current med regimen including DAPT, Eliquis, etc
DVT Prophylaxis: On Eliquis
Code Status: Full
Anticipated Discharge: > 48 hours
Subjective/Interval History
-
Date of Service: July 10, 2023
pt grunting and moaning yet when asked what is wrong he says nothing
Objective Data
-
Labs:
Laboratory Results
07/09/23 07/10/23
22:50 05:49
WBC 16.4 H
Hgb 5.8 L* 6.5 L*
Hct 17.7 L* 19.7 L*
Plt Count 385 D
Sodium 135 D
Potassium 3.9
Chloride 101
Carbon Dioxide 27
BUN 51 H
Creatinine 3.6 H
Glucose 72
Calcium 8.0 L
Total Bilirubin 0.5
AST 14 L
ALT < 10
Alkaline Phosphatase 211 H
Vital Signs:
max temp for 24 hours
07/10/23
03:40
Temp 98.4 F
Vital Signs
Temp Pulse Resp BP Pulse Ox
98.4 F 81 14 113/60 96
07/10/23 03:40 07/10/23 06:00 07/10/23 06:00 07/10/23 06:00 07/10/23 03:31
I&O
07/09/23 07/10/23 07/11/23
06:59 06:59 06:59
Intake Total 2940 / 2940 865 / 865
Output Total 275 / 275 250 / 250
Balance 2665 / 2665 615 / 615
Review of Systems
-
All other systems: Reviewed and negative
Physical Exam
-
General: Well Developed, Well Nourished and No Apparent Distress
HEENT: Normocephalic and Atraumatic
Respiratory: Clear to Auscultation; Negative Wheezes or Rhonchi
Cardiac: Regular Rhythm and S1/S2; Negative Murmur
GI: Soft, Nontender, Nondistended and Normal Bowel Sounds
Genito-urinary: Negative Mccloud (removed 07/08)
Musculoskeletal: No Clubbing, No Cyanosis and No Edema
Skin: Warm
Neuro: Awake
[2023-07-10 08:46] LABS: Glucose - Point of Care 92 mg/dl (70-99)
--- NOTE | 2023-07-10 08:56 | CM ---
Patient seen at bedside. Patient stated 'I want to get out of here'. CM spoke with patient sister, Argenis who indicated that patient prior to going to [facility] was staying with her in a 2 bedroom home with her grandchild and . Patient
sister states that patient was living with his ex in [place] prior to this year. Patient had a suicide attempt on and had been in a [facility] hospital, then staying in a homeless group home per sister with the help of his son.
Patient sister indicated that she would take patient back but was unable to care for him 09/09 due to her other responsibilities. Patient sister supportive of patient return to SNF for STC. Patient sister requested to speak with physician/nursing
regarding medical needs. CM updated physician. CM will continue to follow for discharge planning needs.
Plan; return to SNF; [facility]
[2023-07-10 09:30] LABS: Hemoglobin 6.2 g/dL (13.0-18.0)
[2023-07-10] MEDS: LOPRESSOR 25 MG PO ×2 (09:32→20:01)
[2023-07-10] MEDS: TYLENOL 1000 MG PO ×3 (09:32→22:38)
[2023-07-10] MEDS: NORVASC 10 MG PO (09:33)
[2023-07-10] MEDS: LOW STRENGTH ASPIRIN 81 MG PO (09:33)
--- NOTE | 2023-07-10 09:36 | W.PN.ID1 ---
Date of Service
Date of Service: July 10, 2023
Today's Communication
Continue abx.
Assessment / Plan
Diarrhea
Recent diagnosis of C. difficile
- current testing negative.
Persistent hypoglycemia - resolved
- diarrhea could relate to glipizide, metformin, persistent C difficile or a combination thereof
- recheck of C difficile negative.
- Abd film: Nonobstructed bowel gas pattern.
- continue oral vanc 125 mg QID through 07/12.
- continue enhanced precautions
Suspected osteomyelitis of the right heel.
- Podiatry has been consulted - appreciate their input
- continue wound care
- would agree that amputation is the most likely outcome; no urgent findings of cellulitis.
- Follow up with his vascular surgeon in about 1 week
L2-L3 and possibly L3-L4 Discitis, Osteomyelitis
Epidural abscess from L1- sacrum, s/p laminectomy (06/13/2023)
Psoas Abscesses bilaterally
MSSA Bacteremia - cleared
LUIS ANGEL: ATN vs PIGN
- blood cultures x2 in progress no growth to date
- continue cefazolin for planned course - 8 weeks - through 08/09/23
- outpatient follow up with patients [facility] physicians
Chief Complaint
-: Other (diarrhea; Hx epidural abscess)
Subjective / Review of Systems
Pt seen / examined. Reports intermittant but ongoing diarrhea. No abdominal pain.
Review of Systems: No Fever and No Chills
Vital Signs / Physical Exam
Vital Signs
Vital Signs
Temp Pulse Resp BP Pulse Ox
98.4 F 81 14 113/60 96
07/10/23 03:40 07/10/23 06:00 07/10/23 06:00 07/10/23 06:00 07/10/23 03:31
Physical Exam
Constitutional: No Acute Distress, Comfortable, Chronically Ill and Non-toxic
Eyes: No Conjunctival Hemorrhage and Sclera Anicteric
Cardiovascular: S1/S2; Negative S3/S4
Pulmonary: Clear and Non Labored
Gastrointestinal: Soft, Non Tender and Non Distended
Extremities: Negative Edema, Cyanosis or Erythema
Wound: Other (right heel wound dressed. No malodor)
Neurological: Awake and Alert
Objective Data
Lab Data
Lab Results
07/10/23 05:49
Estimated Creat Clear 24 ml/min 07/10/23 05:49
Total Bilirubin 0.5 mg/dl (0.2-1.3) 07/10/23 05:49
AST 14 U/L (17-59) L 07/10/23 05:49
ALT < 10 U/L (0-50) 07/10/23 05:49
Alkaline Phosphatase 211 U/L (38-126) H 07/10/23 05:49
Most recent labs reviewed.
Micro Results:
07/09/23 12:46 C. difficile GDH Antigen & Toxins - Final
Feces/Stool Negative for toxigenic C.difficile
--- NOTE | 2023-07-10 10:50 | CON.GI ---
Addendum entered and electronically signed by Kendal Duran MD 07/10/23 19:06:
Called and left voice message for patient's Sister Argenis regarding the plan.
Addendum entered and electronically signed by Kendal Duran MD 07/10/23 13:20:
I saw and examined the patient.
The TROLLEY CAR OPERATOR or PA's note was reviewed and I agree with the note.
Comment: 68-year-old male with history of end-stage renal disease on hemodialysis, diabetes, peripheral vascular disease on Eliquis, Plavix, osteomyelitis, recent C. difficile 06/28, on oral vancomycin presenting with hypoglycemia, chronic anemia but
now noted to have 2g drop in hemoglobin during the hospital admission and black stool (rectal 07/09 with black stool again). Patient is a poor historian, and could not get much history but denies any previous GI workup with endoscopy or
colonoscopy. Denies any abdominal pain, nausea or vomiting. No heartburn or trouble swallowing. Denies any constipation, diarrhea. He does report possible GI bleed 10 to 15 years ago but never had endoscopy evaluation, again cannot confirm that.
No family history of colon cancers or polyps. Last Eliquis use 07/07, last Plavix use 07/08.
-Acute on chronic anemia with GI bleeding-black stool but hemodynamically stable
No previous GI workup
Patient willing to undergo procedures this hospital stay
Start Protonix 40 mg IV twice daily-aware patient has C.diff but given GI bleeding, needs a medication.
Plan for upper endoscopy/colonoscopy after Eliquis/Plavix washout, timing to be decided.
Monitor H&H and transfuse as needed.
Okay for low residue diet during the washout.
-History of C. difficile diarrhea. C. difficile testing in the hospital negative
Currently on oral vancomycin tapering dose over 6 weeks
-Chronic renal insufficiency
-Leukocytosis-blood cultures negative, currently on antibiotics
He does have history of osteomyelitis
Will discuss with Sister Argenis regarding procedures as well.
Addendum entered and electronically signed by MONICA Hunter 07/10/23 12:41:
Pt also noted with hypoglycemia on admission now improved
Original Note:
Consultation
-
Date/Time Consultation Requested: 07/10/23 0700
Date/Time Consultation Performed: 07/10/23 1050
Requesting Provider: Leanna Madrid MD
Performing Provider: MONICA Dietrich, Kendal Duran MD
Reason for Consultation: anemia
Medical History
Chief Complaint / HPI
Chief Complaint: rectal bleeding
History of Present Illness:
Pt is a 68yo with hx LUIS ANGEL resulting in ESRD on DH, chronic anemia, DM, PAD with chronic heal wound with osteo, RLE angio and stent on chronic Eliquis, ASA, and Plavix(managed with Dr. Ortiz -vascular at [place]), psoas abscess b/l, MSSA
bacteremia, epidural abscess with salcedo (06/12), chronic pain, and GERD. He was noted + for C-diff 06/28 with admission. He is now noted with worsening of anemia with burgundy stool and also noted reported hematuria last admission.
At this time patient denies dysphagia, GERD, nausea, vomiting, abdominal pain, diarrhea, constipation or bleeding. Pt denies hx EGD or colonoscopy in past. Per hospital records chronic anemia hbb 7-8 range since early June now 5-6 range. BUN
51 slightly higher than prior 20-40.
Past Medical History
Past Medical History: GERD, NIDDM, Renal Failure (LUIS ANGEL resulting in ESRD requiring HD) and Other (lumbar discitis, osteomyelitis, lami for epidural abscess/psoas abscess, PAD with chronic heal wound, chronic pain, GERD, anemia of chronic disease,
prior c-diff )
Past Surgical History: Other (RLE angio and stent, tunneled HD cath)
Social History
Tobacco: Smoker
Alcohol: Occasional
Drug: None
Living: Senior Living (prior living with sister )
Family History
Family History: Other (no family hx colon CA or polyps)
Allergies / Home Medications
Allergy/AdvReac Type Severity Reaction Status Date / Time
No Known Allergies Allergy Verified 07/07/23 22:43
�Medication �Instructions �Recorded
acetaminophen 500 mg tablet 1,000 mg PO TID Pain 06/29/23
amlodipine 10 mg tablet 10 mg PO DAILY Blood Pressure 06/29/23
apixaban 2.5 mg tablet 2.5 mg PO BID Blood Clot 06/29/23
Prevention/Tx
aspirin 81 mg chewable tablet 81 mg PO DAILY Blood Clot 06/29/23
Prevention/Tx
bisacodyl 10 mg rectal suppository 10 mg MI DAILY PRN if no results 06/29/23
for MOM
cholecalciferol (vitamin D3) 25 25 mcg PO DAILY Supplement 06/29/23
mcg (1,000 unit) tablet
clopidogrel 75 mg tablet 75 mg PO DAILY Blood Clot 06/29/23
Prevention/Tx
glipizide 5 mg tablet 5 mg PO BID Diabetes 06/29/23
lidocaine 4 % topical patch 1 patch topical DAILY lower back 06/29/23
magnesium hydroxide 400 mg/5 mL 30 ml PO HSPRN PRN if no BM in 3 06/29/23
oral suspension ([employer]k [employer]) days
metformin 500 mg tablet 500 mg PO BID Diabetes 06/29/23
metoprolol tartrate 25 mg tablet 25 mg PO BID Blood Pressure 06/29/23
pantoprazole 40 mg tablet,delayed 40 mg PO DAILY Gastrointestinal 06/29/23
release Issue
oxycodone 10 mg tablet 10 mg PO Q6H PRN mod sev pain #14 07/03/23
tabs
metronidazole 500 mg tablet 500 mg PO TID #15 tabs 07/04/23
vancomycin 125 mg capsule 125 mg PO Q6H #90 caps 07/04/23
cefazolin 10 ml IV MOWE Infection 07/07/23
cefazolin 15 ml IV FR Infection 07/07/23
Review of Systems
-
History Source: Patient
Constitutional: Reports No Symptoms
EENT: Reports No Symptoms
Respiratory: Reports No Symptoms
Cardiac: Reports No Symptoms
Abdomen/GI: Reports Bloody Stools
: Reports No Symptoms
Musculoskeletal: Reports No Symptoms
Skin: Reports No Symptoms
Neurological: Reports Weakness
Endocrine: Reports No Symptoms
Hematologic/Lymphatic: Reports Bleeding
Vital Signs
Temp Pulse Resp BP Pulse Ox
98.4 F 85 20 126/78 97
07/10/23 10:02 07/10/23 10:02 07/10/23 10:02 07/10/23 10:02 07/10/23 10:02
Physical Exam
Exam
General: Well Developed, Well Nourished and No Apparent Distress
Respiratory: Clear
Cardiac: Regular Rhythm
Rectal: Black and Hem Positive (grossly +)
Musculoskeletal: No Clubbing and No Cyanosis
Skin: Warm and Dry
Neuro: Awake, Alert and AO x 3
Psych: Calm
Results
WBC 16.4 10^3/uL (4.8-10.8) H 07/10/23 05:49
Hgb 6.2 g/dL (13.0-18.0) L* 07/10/23 08:59
Hct 19.0 % (39.0-52.0) L* 07/10/23 08:59
MCV 90.8 fL (80.0-94.0) 07/10/23 05:49
Plt Count 385 10^3/uL (130-400) D 07/10/23 05:49
Absolute Neuts (auto) 13.7 10^3/uL (1.4-6.5) H 07/09/23 05:27
Sodium 135 mmol/L (135-145) D 07/10/23 05:49
Potassium 3.9 mmol/L (3.5-5.1) 07/10/23 05:49
Chloride 101 mmol/L (98-107) 07/10/23 05:49
Carbon Dioxide 27 mmol/L (22-30) 07/10/23 05:49
BUN 51 mg/dl (9-20) H 07/10/23 05:49
Creatinine 3.6 mg/dL (0.7-1.3) H 07/10/23 05:49
Calcium 8.0 mg/dl (8.4-10.2) L 07/10/23 05:49
Total Bilirubin 0.5 mg/dl (0.2-1.3) 07/10/23 05:49
AST 14 U/L (17-59) L 07/10/23 05:49
ALT < 10 U/L (0-50) 07/10/23 05:49
Alkaline Phosphatase 211 U/L (38-126) H 07/10/23 05:49
Diagnostic Image Results:
07/08/23 no obstructive pattern
Prior GI Procedures:
EGD: none
Colonoscopy: none
Assessment / Plan
-
Pt is a 68yo with hx LUIS ANGEL resulting in ESRD on DH, chronic anemia, DM, PAD with chronic heal wound with osteo, RLE angio and stent on chronic Eliquis, ASA, and Plavix(managed with Dr. Ortiz -vascular at [place]), psoas abscess b/l, MSSA
bacteremia, epidural abscess with salcedo (06/12), chronic pain, and GERD. He was noted + for C-diff 06/28 with admission. He is now noted with worsening of anemia with burgundy stool and also noted reported hematuria last admission. Per hospital
records chronic anemia hbb 7-8 range since early June now 5-6 range. BUN 51 slightly higher than prior 20-40.
-worsening chronic anemia
-black/burgundy stools
-recent c-diff on vanco
-ESRD on HD
-recent report hematuria
-DM
-PAD/ LE chronic wound prior LE stenting on ASA, Eliquis , Plavix managed at [facility] vascular Dr. Ortiz
-MSSA bacteremia
-epidural abscess with lami 06/12
-GERD
PLAN:
Etiology of heme + burgundy stool related to recent c-diff infection, ectasia, mass with no prior screening, concurrent ESRD vs other
anemia may be multi factorial with ESRD, recent hematuria, GI bleeding vs other
current rectal exam with black heme + stool
pt agreeable for GI work up last eliquis 07/07 and Plavix 07/08 currently on hold
remain on Pepcid only witth recent c-diff
cont vanco per ID on taper
trend hbg transfuse as needed total 3 units transfused
will try to add iron studies to 07/08 labs pre transfusion
plan for EGD/colon after wash out
ok to continue diet for now
reviewed with Dr. Madrid
-
-
Thank you for consultation and allowing me to participate in the patient's care. Please call the bonding and composite fabricator GI physician during the after hours with any questions or concerns.
--- NOTE | 2023-07-10 11:34 | PN.CDI ---
CDI
- -
CDI:
Physician Documentation Request
Admit Date: 07/08/23 01:35
Dear Doctor Julius,
Please review the following and provide your response in the progress notes.
Clinical Indicators:
PN, 07/09
#consult GI
#transfuse 3rd unit pRBC
#hold Eliquis and plavix
#follow H&H
#acute blood loss anemia on anemia of chronic disease
#...--likely from GI source--passing burgundy stools--transfused (got 3 units in total)--consult GI--possible diverticular bleed?, ...
Please clarify the relationship, if any, between these conditions:
Yes, acute blood loss anemia of chronic disease is exacerbated by/associated with/due to Eliquis and Plavix.
No, acute blood loss anemia of chronic disease is not exacerbated by/associated with/due to Eliquis and Plavix but it is due to ___. (Please specify)
Other(please specify)
Unable to determine
Use of terms such as suspected, likely, concern for, or probable (associated with a specific diagnosis that is being evaluated, monitored, or treated as if it exists) are acceptable and can be coded in the inpatient setting, when documented at the
time of discharge.
Thank you,
Leanna Hill RN BSN CCDS
CDI Specialist
please contact via tiger text
Please use your independent medical judgment in providing your response.
--- NOTE | 2023-07-10 11:41 | PN.CDI ---
CDI
- -
CDI:
Physician Documentation Request
Admit Date: 07/08/23 01:35
Dear Doctor Julius,
Please review the following and provide your response in the progress notes.
Clinical Indicators:
Podiatry consult, 07/08
#-Chronic right heel ulcer
#Likely osteomyelitis based on radiographic evaluation and bone exposure through the wound
#-Lumbar spine osteomyelitis with epidural abscess status post laminectomy 06/13/23 at [facility]
#Cefazolin 8 week course
PN, 07/09
#Right heel wound with bone exposed--s/p wound care consult
#...--x-ray suggestive of osteomyelitis
#Lumbar Osteomyelitis/Discitis--Stable. No complaints of back pain--No fevers/chills--Continue current cefazolin dosing.
Please clarify which of the following accurately represents the acuity of the documented osteomyelitis. Possible options might include:
Acute right heel osteomyelitis and lumbar osteomyelitis
Acute right heel osteomyelitis only
Acute lumbar osteomyelitis only
Acute on Chronic right heel osteomyelitis and lumbar osteomyelitis
Chronic right heel osteomyelitis and lumbar osteomyelitis
Other(please specify)
Use of terms such as suspected, likely, concern for, or probable (associated with a specific diagnosis that is being evaluated, monitored, or treated as if it exists) are acceptable and can be coded in the inpatient setting, when documented at the
time of discharge.
Thank you,
Leanna Hill RN CCDS BSN
CDI Specialist
please contact via tiger
Please use your independent medical judgment in providing your response.
[2023-07-10 12:44] LABS: Glucose - Point of Care 96 mg/dl (70-99)
[2023-07-10 13:24] LABS: Iron 42 ug/dl (49-181); Percent Saturation 28 % (20-50); Total Iron Binding Capacity 148 ug/dl (261-462)
[2023-07-10] MEDS: NSS (PRESERVATIVE FREE) 10 ML IV ×2 (14:40→19:59)
[2023-07-10] MEDS: PROTONIX IV 40 MG IV ×2 (14:40→19:59)
[2023-07-10 15:28] LABS: Hemoglobin 6.8 g/dL (13.0-18.0)
[2023-07-10] MEDS: ANCEF 10 IV (17:30)
[2023-07-10 17:50] LABS: Glucose - Point of Care 100 mg/dl (70-99)
[2023-07-10] MEDS: PEPCID 20 MG PO (22:38)
[2023-07-10 22:59] LABS: Glucose - Point of Care 105 mg/dl (70-99)
[2023-07-10 23:02] LABS: Hematocrit 21.1 % (39.0-52.0); Hemoglobin 7.5 g/dL (13.0-18.0)
[2023-07-11] VITALS (59 sets, daily range): BP systolic 107–145; BP diastolic 50–89; PULSE 81–88; O2SAT 98; BMI 26.2
[2023-07-11 05:09] LABS: Mean Corpuscular Hgb 29.5 pg (27.0-31.0); Mean Corpuscular Volume 86.6 fL (80.0-94.0); Platelet Count 350 10^3/uL (130-400); Red Blood Cell Count 2.24 10^6/uL (4.70-6.10); Red Cell Dist. Width 15.2 % (11.5-14.5); White Blood Cell Count 17.1 10^3/uL (4.8-10.8)
[2023-07-11 05:20] LABS: Hematocrit 19.4 % (39.0-52.0); Hemoglobin 6.6 g/dL (13.0-18.0)
[2023-07-11] MEDS: FIRVANQ 125 MG PO ×3 (05:49→17:22)
[2023-07-11 06:06] LABS: Blood Urea Nitrogen 81 mg/dl (9-20); Calcium 8.3 mg/dl (8.4-10.2); Carbon Dioxide 23 mmol/L (22-30); Chloride 102 mmol/L (98-107); Estimated Creatinine Clearance 19 ml/min; Glucose 58 mg/dl (70-99); Magnesium 1.9 mg/dl (1.6-2.3); Potassium 4.3 mmol/L (3.5-5.1); Sodium 136 mmol/L (135-145)
--- NOTE | 2023-07-11 06:36 | PTCARENOTE ---
Received pt at start of shift. Pt seems off & confused at times....& agitated. Finished up his 4th bag of blood at start of shift and is now on his 5th bag this morning for hgb 6.6. pt had 2 large black watery stools overnight. vss. pt denies pain
but will moan and groan while he is in the bed. Pt did wake up very confused overnight, BA was on. No other issues at this time.
[2023-07-11] MEDS: LOPRESSOR PO ×2 (08:00→09:00)
[2023-07-11] MEDS: NORVASC PO (08:00)
--- NOTE | 2023-07-11 08:43 | W.PN.ID1 ---
Date of Service
Date of Service: July 11, 2023
Today's Communication
Continue antibiotics. See below�
Assessment / Plan
Diarrhea
Recent diagnosis of C. difficile
- current testing negative.
Persistent hypoglycemia - resolved
- continue oral vanc 125 mg QID through 07/12.
Suspected osteomyelitis of the right heel.
- Podiatry has been consulted - appreciate their input
- continue local wound care
- amputation is likely outcome; no urgent findings of cellulitis.
- Follow up with his vascular surgeon in about 1 week
L2-L3 and possibly L3-L4 Discitis, Osteomyelitis
Epidural abscess from L1- sacrum, s/p laminectomy (06/13/2023)
Psoas Abscesses bilaterally
MSSA Bacteremia - cleared
LUIS ANGEL: ATN vs PIGN
- blood cultures no growth to date
- continue cefazolin for planned course - 8 weeks - through 08/09/23
- cefazolin dosed for hemodialysis (2gm/2gm/3gm)
- outpatient follow up with patients [facility] physicians following D/C
����������������������������������������������������������
Chief Complaint
-: Other (diarrhea; Hx epidural abscess)
Subjective / Review of Systems
Patient seen and examined. Denies specific complaints today, although hemodialysis nurse notes that when otherwise not preoccupied, he 'moans' and reports generalized discomfort.
Vital Signs / Physical Exam
Vital Signs
Vital Signs
Temp Pulse Resp BP Pulse Ox
98.0 F 83 18 131/72 97
07/11/23 06:43 07/11/23 08:00 07/11/23 08:00 07/11/23 08:00 07/11/23 08:00
Physical Exam
Constitutional: Comfortable, Chronically Ill and Non-toxic
Head: Normocephalic
Eyes: No Conjunctival Hemorrhage; Negative Sclera Anicteric
Cardiovascular: S1/S2; Negative S3/S4
Pulmonary: Clear and Non Labored
Gastrointestinal: Soft, Non Tender and Non Distended
Extremities: Edema; Negative Erythema
Skin: Warm and Dry; Negative Rash or Jaundice
Wound: Other (Right heel area dressed. No surrounding or periwound erythema.)
Neurological: Awake and Alert
Psychological: Calm
Lines: HD Cath (Right ACW; exit site without erythema)
Objective Data
Lab Data
Lab Results
07/11/23 04:40
07/11/23 04:40
Estimated Creat Clear 19 ml/min 07/11/23 04:40
Total Bilirubin 0.5 mg/dl (0.2-1.3) 07/10/23 05:49
AST 14 U/L (17-59) L 07/10/23 05:49
ALT < 10 U/L (0-50) 07/10/23 05:49
Alkaline Phosphatase 211 U/L (38-126) H 07/10/23 05:49
Most recent labs reviewed.
Micro Results:
07/09/23 12:46 C. difficile GDH Antigen & Toxins - Final
Feces/Stool Negative for toxigenic C.difficile
[2023-07-11] MEDS: RETACRIT 10000 UNITS IV (08:54)
--- NOTE | 2023-07-11 08:55 | W.PN.GI.CBS2 ---
Addendum entered and electronically signed by Velia Sanchez Do, MD 07/11/23 14:27:
I saw and examined the patient.
The DIETARY DIRECTOR's note was reviewed and I agree with the note.
Comment: He is eating diet without abd pain, nausea or vomiting. VSS chronically ill appearing contracted LE in boot, tattoos, NTTP, NABS. Labs reviewed Hbg improved to 9
Impression
- Burgundy and dark stools with anemia
Ddx includes AVM, PUD or occult malignancy
- ESRD on HD
- DM
- PAD on eliquis and Plavix
- Chronic osteo
- Chronic Pain
- GERD
- H/o Cdiff 06/28
Recommendations
- Serial H/H
- C/w protonix gtt
- Monitor stool output
- C/w diet, he refuses restriction
- NPO at [facility] in case more bleeding is seen
- If H/H stable anticipate EGD/colon on Friday 07/14 after plavix/eliquis washout
- Ok to c/w ASA
- C/w oral vancomycin taper for Cdiff infection 06/28
Will follow with you
Original Note:
Today's Communication / Plan
-
Etiology of heme + burgundy stool related to upper GI bleeding, vs recent c-diff infection, ectasia, mass with no prior screening, concurrent ESRD in differential
anemia may be multi factorial with ESRD, recent hematuria, GI bleeding vs other
several black stools this am with rise in BUN concerning for UGI bleed
he is currently on HD and just ate breakfast
reviewed with nursing monitor and update us with any further stools
will make NPO for AM in case EGD needed sooner otherwise plan for EGD/colon on 07/14 after wash out
last Eliquis 07/07 and Plavix 07/08 currently on hold
protonix added 07/09 BID will change to PPI gtt cont pepcid
cont vanco per ID on taper
trend hbg transfused and now getting 4th unit since admission as today hbg drop to 6.6
07/08 pre transfusion iron studies mixed with CKD- iron 42, TIBC 148, sat 28, ferritin 586
Assessment / Plan
-
Pt is a 68yo with hx LUIS ANGEL resulting in ESRD on DH, chronic anemia, DM, PAD with chronic heal wound with osteo, RLE angio and stent on chronic Eliquis, ASA, and Plavix(managed with Dr. Ortiz -vascular at [place]), psoas abscess b/l, MSSA
bacteremia, epidural abscess with salcedo (06/12), chronic pain, and GERD. He was noted + for C-diff 06/28 with admission. He is now noted with worsening of anemia with burgundy stool and also noted reported hematuria last admission. Per hospital
records chronic anemia hbb 7-8 range since early June now 5-6 range. BUN 51 slightly higher than prior 20-40.
-worsening chronic anemia
-black/burgundy stools
-recent c-diff on vanco
-ESRD on HD
-recent report hematuria
-DM
-PAD/ LE chronic wound prior LE stenting on ASA, Eliquis , Plavix managed at [place] vascular Dr. Ortiz
-MSSA bacteremia
-epidural abscess with lami 06/12
-GERD
PLAN:
Etiology of heme + burgundy stool related to upper GI bleeding, vs recent c-diff infection, ectasia, mass with no prior screening, concurrent ESRD in differential
anemia may be multi factorial with ESRD, recent hematuria, GI bleeding vs other
several black stools this am with rise in BUN concerning for UGI bleed
he is currently on HD and just ate breakfast
reviewed with nursing monitor and update us with any further stools
will make NPO for AM in case EGD needed sooner otherwise plan for EGD/colon on 07/14 after wash out
last Eliquis 07/07 and Plavix 07/08 currently on hold
protonix added 07/09 BID will change to PPI gtt cont pepcid
cont vanco per ID on taper
trend hbg transfused and now getting 4th unit since admission as today hbg drop to 6.6
07/08 pre transfusion iron studies mixed with CKD- iron 42, TIBC 148, sat 28, ferritin 586
Subjective
Subjective
Date of Service: July 11, 2023
07/10 several black stools this am per nursing staff with dialysis on low residue/ ADA diet getting tranfusion
Objective
Data Reviewed
Laboratory Data:
Laboratory Results
07/11/23 04:40
07/11/23 04:40
Laboratory Results
Magnesium 1.9 mg/dl (1.6-2.3) 07/11/23 04:40
Total Bilirubin 0.5 mg/dl (0.2-1.3) 07/10/23 05:49
AST 14 U/L (17-59) L 07/10/23 05:49
ALT < 10 U/L (0-50) 07/10/23 05:49
Alkaline Phosphatase 211 U/L (38-126) H 07/10/23 05:49
Vital Signs and I&O:
Vital Signs
Temp Pulse Resp BP Pulse Ox
98.0 F 83 18 131/72 97
07/11/23 06:43 07/11/23 08:00 07/11/23 08:00 07/11/23 08:00 07/11/23 08:00
I&O
07/10/23 07/11/23 07/12/23
06:59 06:59 06:59
Intake Total 865 / 865 500 / 500
Output Total 250 / 250
Balance 615 / 615 500 / 500
Physical Exam
Physical Exam
HEENT: Anicteric and Moist mucous membranes
Cardiology: Normal Sinus Rhythm
Pulmonary: Clear
GI: Soft, Non Distended and Non Tender
Neuro: Non Focal
[2023-07-11] MEDS: LOW STRENGTH ASPIRIN 81 MG PO (09:00)
[2023-07-11] MEDS: TYLENOL 1000 MG PO ×3 (09:00→22:28)
[2023-07-11 09:15] LABS: Glucose - Point of Care 132 mg/dl (70-99)
--- NOTE | 2023-07-11 09:48 | W.PN.NEPH.HD ---
Addendum entered and electronically signed by Naresh Villegas MD 07/11/23 09:53:
3K, 2.5kg UF
transfuse on HD
Original Note:
Assessment
-
Seen on HD. no complaints. VSS, access ok
Progress Note - Hemodialysis
-
Date of Service: July 11, 2023
Duration: 30 minutes and 3 hours
Potassium Bath: 2
Calcium Bath: 2.5
Opti-Dialyzer: 160
Ultrafiltration: Other (3kg)
Blood Flow: 400
Dialysate Flow: 600
Heparin: no
EPO: 60931 units
--- NOTE | 2023-07-11 09:55 | W.PN.HOSP.TC ---
Addendum entered and electronically signed by Leanna Madrid MD 07/11/23 10:06:
osteomyelitis is CHRONIC of right heel wound and back
Original Note:
Today's Communication/Plan
-
getting HD
transfuse 2 units pRBC
PPI drip
Hold eliquis/plavix
will need scope
Assessment / Plan
Assessment / Plan
Patient is a 68y M with PMH significant for osteomyelitis / discitis, LUIS ANGEL requiring HD, DM-II and recent admission for encephalopathy and C Diff colitis who presents to ED from [place] for evaluation of hypoglycemic episodes.
acute blood loss anemia on anemia of chronic disease--likely from acute upper GI bleed exacerbated by Eliquis/plavix--still passing burgundy stools--transfused (got 4 units, getting 5th and 2 more ordered to give on HD now) apprec GI--possible
duodenal ulcer? PUD?, denies abdominal pain--NPO--follow H&H--PPI drip ordered by GI, will need scope
Type 2 DM with Hypoglycemia likely from medications (oral hypoglycemic agents)--resolved---holding glipizide and metformin now and at [place]--s/p 2 doses of octreotide--s/p dextrose infusion--A1C during recent visit was 5.9%--NPO so may need D5 IVF
Right heel wound with bone exposed and osteomyelitis--s/p wound care consult--x-ray suggestive of osteomyelitis--apprec Podiatry --likely will need amputation eventually
C. Diff Colitis-- improving WBC--Continue PO Vanco--if return of diarrhea would need ID consult for recurrent C. Diff
Lumbar Osteomyelitis/Discitis--Stable. No complaints of back pain--No fevers/chills--Continue current cefazolin dosing.
LUIS ANGEL now Requiring HD--Patient developed LUIS ANGEL during initial hospitalization at [facility] and was initiated on HD--Now on T-H-Sat schedule--Nephrology evaluation for HD needs during hospital stay.
ASCVD--Stable. Prior h/o PAD s/p RLE stenting--HOLD current med regimen including plavix, Eliquis
DVT Prophylaxis: On Eliquis
Code Status: Full
Anticipated Discharge: > 48 hours
Subjective/Interval History
-
Date of Service: July 11, 2023
pt c/o pain
Objective Data
-
Labs:
Laboratory Results
07/10/23 07/11/23 07/11/23
22:56 04:40 04:40
WBC 17.1 H
Hgb 7.5 L Cancelled 6.6 L*
Hct 21.1 L Cancelled
Plt Count
Sodium
Potassium
Chloride
Carbon Dioxide
BUN
Creatinine
Glucose
Calcium
07/11/23 07/11/23 07/11/23
04:40 13:00 21:00
WBC
Hgb Pending Pending
Hct 19.4 L* Pending Pending
Plt Count 350
Sodium 136
Potassium 4.3
Chloride 102
Carbon Dioxide 23
BUN 81 H
Creatinine 4.6 H*
Glucose 58 L
Calcium 8.3 L
Vital Signs:
max temp for 24 hours
07/11/23
06:27
Temp 98.5 F
Vital Signs
Temp Pulse Resp BP Pulse Ox
98.0 F 83 18 131/72 97
07/11/23 06:43 07/11/23 08:00 07/11/23 08:00 07/11/23 08:00 07/11/23 08:00
I&O
07/10/23 07/11/23 07/12/23
06:59 06:59 06:59
Intake Total 865 / 865 500 / 500 250 / 250
Output Total 250 / 250
Balance 615 / 615 500 / 500 250 / 250
Review of Systems
-
All other systems: Reviewed and negative
Musculoskeletal: Reports Other (leg pain)
Physical Exam
-
General: Well Developed, Well Nourished and Pain
HEENT: Normocephalic and Atraumatic
Respiratory: Clear to Auscultation; Negative Wheezes or Rhonchi
Cardiac: Regular Rhythm, S1/S2 and Tachycardic
GI: Soft, Nontender, Nondistended and Normal Bowel Sounds
Musculoskeletal: No Clubbing, No Cyanosis and No Edema
Skin: Ulcers (right heel large ulcer with osteomyelitis)
Neuro: Awake
[2023-07-11] MEDS: DILAUDID 0.25 MG IV (10:26)
--- NOTE | 2023-07-11 10:40 | PTCARENOTE ---
Assumed care this am- PRBC infusing via RH INT. AAOx2 restless, has had 3 moderate thick liquid black / burgandy stools since my arrival. Pale, dry skin. Currently on HD, having 2 more units infused. C/o 09/26 back pain - Scheduled Tylenol given
this am no relief - New orders for IV Dilaudid- dose administered. BP 120/68, SR/ PACs PVCs 80. 98% on RAIR. D/w ICU Charge Moses potential transfer.
[2023-07-11 12:06] LABS: Glucose - Point of Care 105 mg/dl (70-99)
[2023-07-11] MEDS: PROTONIX 100 IV ×2 (12:32→22:01)
[2023-07-11] MEDS: ANCEF 15 MG IV (12:33)
[2023-07-11] MEDS: PROTONIX IV IV (12:34)
[2023-07-11] MEDS: NSS (PRESERVATIVE FREE) IV (12:34)
[2023-07-11 13:19] LABS: Hemoglobin 9.4 g/dL (13.0-18.0)
--- NOTE | 2023-07-11 15:48 | CM ---
Addendum entered by Andria Gutierrez RN 07/11/23 16:07:
Seen by wound care nurse - wound care right heel.
Plan return to [facility] for wound care & rehab when medically ready.
Original Note:
Patient from [facility] with Hx ESRD on HD with Dx acute blood loss anemia s/p transfusions, acute upper GI bleed, Right heel wound with bone exposed and osteomyelitis, C. Diff Colitis. Plan NPO at [place] for possible EGD tomorrow if more bleeding
vs EGD/colon on 07/14 after washout. Room air. IV Abx, IV PPI. PT/OT recommend skilled rehab.
Spoke with Padmini Reyes [facility]; clinical update provided. The for report [phone], fax [phone].
CM continuing to follow.
Plan return to [facility] when medically ready.
--- NOTE | 2023-07-11 18:28 | PTCARENOTE ---
Had 7 overall black burgandy stools today. Received 3 units PRBC- trending hgb. Appetite good however worse pain after eating. IV Protonix gtt infusing. Right heel dressing intact, +foul odor-- prevalon boot intact. IV Dilaudid x1 for severe
pain back/abd. Completed HD , BP 138/73. Tele SR PACs/ Pvcs- 1 short burst 6 sec. svt noted- pt asymptomatic.
--- NOTE | 2023-07-11 19:18 | PTCARENOTE ---
updated sister Argenis
[2023-07-11 22:02] LABS: Glucose - Point of Care 135 mg/dl (70-99)
[2023-07-11] MEDS: LOPRESSOR 25 MG PO (22:28)
[2023-07-12] VITALS (68 sets, daily range): BP systolic 113–139; BP diastolic 52–95; BMI 25.7
[2023-07-12] MEDS: FIRVANQ 125 MG PO ×5 (00:15→23:44)
[2023-07-12 05:33] LABS: Glucose - Point of Care 110 mg/dl (70-99)
[2023-07-12] MEDS: PROTONIX 100 IV (05:45)
[2023-07-12 05:47] LABS: Hematocrit 28.8 % (39.0-52.0); Hemoglobin 9.6 g/dL (13.0-18.0); Mean Corp Hgb Conc. 33.3 g/dL (33.0-37.0); Mean Corpuscular Hgb 28.9 pg (27.0-31.0); Mean Corpuscular Volume 86.7 fL (80.0-94.0); Mean Platelet Volume 8.9 fL (7.4-10.4); Platelet Count 345 10^3/uL (130-400); Red Blood Cell Count 3.32 10^6/uL (4.70-6.10); Red Cell Dist. Width 16.6 % (11.5-14.5); White Blood Cell Count 17.6 10^3/uL (4.8-10.8)
[2023-07-12 06:12] LABS: ALT (SGPT) < 10 U/L (0-50); AST (SGOT) 16 U/L (17-59); Albumin 2.5 g/dl (3.5-5.0); Alkaline Phosphatase 207 U/L (38-126); Blood Urea Nitrogen 44 mg/dl (9-20); Calcium 8.4 mg/dl (8.4-10.2); Carbon Dioxide 25 mmol/L (22-30); Chloride 101 mmol/L (98-107); Estimated Creatinine Clearance 25 ml/min; Glucose 87 mg/dl (70-99); Potassium 3.9 mmol/L (3.5-5.1); Sodium 136 mmol/L (135-145); Total Bilirubin 0.5 mg/dl (0.2-1.3); Total Protein 5.4 g/dl (6.3-8.2); eGFR 19.11
--- NOTE | 2023-07-12 06:45 | PTCARENOTE ---
Pt maintained NPO r/t procedure ordered for today. Pt still having bloody stools overnight. accucheck q6 r/t npo. Am glucose 110. see nursing shift assessment for head to toe.
[2023-07-12] MEDS: TYLENOL 1000 MG PO ×3 (08:19→21:18)
[2023-07-12] MEDS: NORVASC 10 MG PO (08:20)
[2023-07-12] MEDS: LOW STRENGTH ASPIRIN 81 MG PO (08:20)
[2023-07-12] MEDS: LOPRESSOR 25 MG PO ×2 (08:20→20:52)
--- NOTE | 2023-07-12 09:03 | W.PN.HOSP.TC ---
Today's Communication/Plan
-
waiting for scopes from GI
Assessment / Plan
Assessment / Plan
Patient is a 68y M with PMH significant for osteomyelitis / discitis, LUIS ANGEL requiring HD, DM-II and recent admission for encephalopathy and C Diff colitis who presents to ED from [place] for evaluation of hypoglycemic episodes.
acute blood loss anemia on anemia of chronic disease--likely from acute upper GI bleed exacerbated by Eliquis/plavix--still passing burgundy stools--transfused (got 7 units in total) apprec GI--possible duodenal ulcer? PUD?, denies abdominal
pain--diet started by GI, amended to diabetic diet--follow H&H--PPI drip ordered by GI, will need scope
Type 2 DM with Hypoglycemia likely from medications (oral hypoglycemic agents)--resolved---holding glipizide and metformin now and at [facility]--s/p 2 doses of octreotide--s/p dextrose infusion--A1C during recent visit was 5.9%--
Right heel wound with bone exposed and osteomyelitis--s/p wound care consult--x-ray suggestive of osteomyelitis--apprec Podiatry --likely will need amputation eventually
C. Diff Colitis-- improving WBC--Continue PO Vanco--if return of diarrhea would need ID consult for recurrent C. Diff
Lumbar Osteomyelitis/Discitis--Stable. No complaints of back pain--No fevers/chills--Continue current cefazolin dosing.
LUIS ANGEL now Requiring HD--Patient developed LUIS ANGEL during initial hospitalization at [facility] and was initiated on HD--Now on T-H-Fri schedule--Nephrology evaluation for HD needs during hospital stay.
ASCVD--Stable. Prior h/o PAD s/p RLE stenting--HOLD current med regimen including plavix, Eliquis
DVT Prophylaxis: On Eliquis
Code Status: Full
Anticipated Discharge: > 48 hours
Subjective/Interval History
-
Date of Service: July 12, 2023
pt wants to eat--GI started diet--I needed to modify
Objective Data
-
Labs:
Laboratory Results
07/12/23 07/12/23 07/12/23
01:00 05:26 13:00
WBC 17.6 H
Hgb Cancelled 9.6 L Pending
Hct Cancelled 28.8 L Pending
Plt Count 345
Sodium 136
Potassium 3.9
Chloride 101
Carbon Dioxide 25
BUN 44 H
Creatinine 3.4 H
Glucose 87
Calcium 8.4
Total Bilirubin 0.5
AST 16 L
ALT < 10
Alkaline Phosphatase 207 H
07/12/23
21:00
WBC
Hgb Pending
Hct Pending
Plt Count
Sodium
Potassium
Chloride
Carbon Dioxide
BUN
Creatinine
Glucose
Calcium
Total Bilirubin
AST
ALT
Alkaline Phosphatase
Vital Signs:
max temp for 24 hours
07/12/23
03:21
Temp 98.4 F
Vital Signs
Temp Pulse Resp BP Pulse Ox
98.4 F 78 15 135/70 96
07/12/23 03:21 07/12/23 06:30 07/12/23 06:30 07/12/23 06:30 07/12/23 08:57
I&O
07/11/23 07/12/23 07/13/23
06:59 06:59 06:59
Intake Total 500 / 500 750 / 750
Balance 500 / 500 750 / 750
Review of Systems
-
All other systems: Reviewed and negative
Physical Exam
-
General: Well Developed, Well Nourished and No Apparent Distress
HEENT: Normocephalic and Atraumatic
Respiratory: Clear to Auscultation; Negative Wheezes or Rhonchi
Cardiac: Regular Rhythm and S1/S2; Negative Murmur
GI: Soft, Nontender, Nondistended and Normal Bowel Sounds
Musculoskeletal: No Clubbing, No Cyanosis and No Edema
Skin: Other (ulcer to right heel with osteomyelitis)
[2023-07-12 09:51] LABS: Glucose - Point of Care 91 mg/dl (70-99)
--- NOTE | 2023-07-12 10:58 | W.PN.ID1 ---
Date of Service
Date of Service: July 12, 2023
Today's Communication
- continue cefazolin for planned course - 8 weeks - through 08/09/23
- continue oral vanc 125 mg QID through 07/12, then prophylactic Vanco 125 mg po BID through 08/14/23
Assessment / Plan
Diarrhea
Recent diagnosis of C. difficile
- current testing negative.
Persistent hypoglycemia - resolved
- continue oral vanc 125 mg QID through 07/12, then prophylactic Vanco 125 mg po BID through 08/14/23
Suspected osteomyelitis of the right heel.
- Podiatry has been consulted - appreciate their input
- continue local wound care
- amputation is likely outcome; no urgent findings of cellulitis.
- Follow up with his vascular surgeon in about 1 week
L2-L3 and possibly L3-L4 Discitis, Osteomyelitis
Epidural abscess from L1- sacrum, s/p laminectomy (06/13/2023)
Psoas Abscesses bilaterally
MSSA Bacteremia - cleared
LUIS ANGEL: ATN vs PIGN
- blood cultures no growth to date
- continue cefazolin for planned course - 8 weeks - through 08/09/23
- cefazolin dosed for hemodialysis (2gm/2gm/3gm)
- outpatient follow up with patients [facility] physicians following D/C
����������������������������������������������������������
Chief Complaint
-: Other (diarrhea; Hx epidural abscess)
Subjective / Review of Systems
Back pain stable.
Vital Signs / Physical Exam
Vital Signs
Vital Signs
Temp Pulse Resp BP Pulse Ox
98.4 F 72 12 125/69 95
07/12/23 07:55 07/12/23 09:00 07/12/23 09:00 07/12/23 09:00 07/12/23 09:00
Physical Exam
Constitutional: No Acute Distress
Pulmonary: Clear
Gastrointestinal: Soft, Non Tender and Non Distended
Extremities: Negative Edema
Neurological: AO x 3
Objective Data
Lab Data
Lab Results
07/12/23 05:26
Estimated Creat Clear 25 ml/min 07/12/23 05:26
Total Bilirubin 0.5 mg/dl (0.2-1.3) 07/12/23 05:26
AST 16 U/L (17-59) L 07/12/23 05:26
ALT < 10 U/L (0-50) 07/12/23 05:26
Alkaline Phosphatase 207 U/L (38-126) H 07/12/23 05:26
Most recent labs reviewed.
Micro Results:
07/09/23 12:46 C. difficile GDH Antigen & Toxins - Final
Feces/Stool Negative for toxigenic C.difficile
--- NOTE | 2023-07-12 11:25 | W.PN.NEPH.PH ---
Today's Communication / Plan
-
next HD friday
Assessment/Plan
-
Assessment:
ESRD
Anemia
Cdiff colitis
Hypoglycemia
Recent epidural/psoas abscess
chronic R heel wound
Plan:
plan for HD friday
Continue antibiotics for C. difficile
GI eval/scope pending
-
-
Date of Service: July 12, 2023
CC / HPI / ROS
-
Chief Complaint:
ESRD
History of Present Illness:
tolerated HD yesterday
Hgb stable
BP stable
Review of Systems:
no CP/SOB
Labs
-
Labs:
WBC 17.6 10^3/uL (4.8-10.8) H 07/12/23 05:26
RBC 3.32 10^6/uL (4.70-6.10) L 07/12/23 05:26
Plt Count 345 10^3/uL (130-400) 07/12/23 05:26
Sodium 136 mmol/L (135-145) 07/12/23 05:26
Potassium 3.9 mmol/L (3.5-5.1) 07/12/23 05:26
Chloride 101 mmol/L (98-107) 07/12/23 05:26
Carbon Dioxide 25 mmol/L (22-30) 07/12/23 05:26
BUN 44 mg/dl (9-20) H 07/12/23 05:26
Creatinine 3.4 mg/dL (0.7-1.3) H 07/12/23 05:26
eGFR 19.11 07/12/23 05:26
Glucose 87 mg/dl (70-99) 07/12/23 05:26
Calcium 8.4 mg/dl (8.4-10.2) 07/12/23 05:26
Albumin 2.5 g/dl (3.5-5.0) L 07/12/23 05:26
Physical Exam
-
Vital Signs:
Vital Signs
Temp Pulse Resp BP Pulse Ox
98.4 F 72 12 125/69 95
07/12/23 07:55 07/12/23 09:00 07/12/23 09:00 07/12/23 09:00 07/12/23 09:00
Cardiovascular:: Regular rate and rhythm
Respiratory:: Bilateral: Coarse
Lung Excursion:: Normal
Abdomen:: Nontender and Soft
Bowel Sounds:: Normal
Extremity Edema:: None: Bilateral:
[2023-07-12 12:15] LABS: Glucose - Point of Care 157 mg/dl (70-99)
--- NOTE | 2023-07-12 12:56 | W.PN.GI.CBS2 ---
Today's Communication / Plan
-
Change to protonix 40mg IV BID
Plan to start FLD tomorrow and slow colyte for 2 day prep
Anticipate EGD/colonoscopy for Friday
Assessment / Plan
-
Pt is a 68yo with hx LUIS ANGEL resulting in ESRD on DH, chronic anemia, DM, PAD with chronic heal wound with osteo, RLE angio and stent on chronic Eliquis, ASA, and Plavix(managed with Dr. Ortiz -vascular at [place]), psoas abscess b/l, MSSA
bacteremia, epidural abscess with salcedo (06/12), chronic pain, and GERD. He was noted + for C-diff 06/28 with admission. He is now noted with worsening of anemia with burgundy stool and also noted reported hematuria last admission. Per hospital
records chronic anemia hbb 7-8 range since early June now 5-6 range. BUN 51 slightly higher than prior 20-40.
Impression
-worsening chronic anemia
no prior EGD/colon
-black/burgundy stools
-recent c-diff on vanco
-ESRD on HD
-recent report hematuria
-DM
-PAD/ LE chronic wound prior LE stenting on ASA, Eliquis , Plavix managed at [place] vascular Dr. Ortiz
-MSSA bacteremia
-epidural abscess with lami 06/12
-GERD
Plan
- C/w Protonix IV BID, c/w pepcid
- C/w oral vancomycin
- Serial H/H
- C/w regular diet
- Anticipate EGD/colonoscopy on Friday after eliquis and plavix washout
- last Eliquis 07/07 and Plavix 07/08 currently on hold
- Anticipate 2 day prep starting tomorrow
Will follow with you
Subjective
Subjective
Date of Service: July 12, 2023
No further dark stools since yesterday AM. Denies abd pain, nausea or vomiting.
Objective
Data Reviewed
Laboratory Data:
Laboratory Results
07/12/23 05:26
Laboratory Results
Magnesium 1.9 mg/dl (1.6-2.3) 07/11/23 04:40
Total Bilirubin 0.5 mg/dl (0.2-1.3) 07/12/23 05:26
AST 16 U/L (17-59) L 07/12/23 05:26
ALT < 10 U/L (0-50) 07/12/23 05:26
Alkaline Phosphatase 207 U/L (38-126) H 07/12/23 05:26
Vital Signs and I&O:
Vital Signs
Temp Pulse Resp BP Pulse Ox
98.1 F 72 12 125/69 95
07/12/23 11:30 07/12/23 09:00 07/12/23 09:00 07/12/23 09:00 07/12/23 09:00
I&O
07/11/23 07/12/23 07/13/23
06:59 06:59 06:59
Intake Total 500 / 500 750 / 750
Balance 500 / 500 750 / 750
Physical Exam
Physical Exam
GEN: No acute distress, conversant, pleasant
HEENT: anicteric, extraocular movements intact, clear oropharynx without exudates
GI: soft, non-distended, not tender to palpation, normal active bowel sounds, no hepatosplenomegaly
EXT: trace edema bilaterally R leg in boot
NEURO: AAOx3, non-focal
[2023-07-12 13:56] LABS: Hematocrit 26.1 % (39.0-52.0); Hemoglobin 9.2 g/dL (13.0-18.0)
[2023-07-12 16:48] LABS: Glucose - Point of Care 113 mg/dl (70-99)
--- NOTE | 2023-07-12 16:59 | PTCARENOTE ---
Pt presents as assessed. Agitated and uncooperative with care, yelling at staff. No bloody stools throughout the day. Started on diet- tolerating at this time. Refusing R foam heel boot despite education on compliance. Assessment and care as
documented. Bed alarm in place for safety.
[2023-07-12] MEDS: NOVOLOG FLEXPEN-LOW RESISTANCE SC (17:11)
[2023-07-12] MEDS: NSS (PRESERVATIVE FREE) 10 ML IV (20:51)
[2023-07-12] MEDS: PROTONIX IV 40 MG IV (20:51)
[2023-07-12] MEDS: PEPCID 20 MG PO (21:18)
[2023-07-12 21:19] LABS: Hematocrit 25.6 % (39.0-52.0); Hemoglobin 8.9 g/dL (13.0-18.0)
[2023-07-12 21:30] LABS: Glucose - Point of Care 112 mg/dl (70-99)
--- NOTE | 2023-07-12 22:42 | PTCARENOTE ---
Patient drowsy, but easily aroused with verbal stimuli. Right heel dressing changed, patient encouraged to wear fiber filled boot. Patient is turning self in bed, but needs helped been pulled. Call mullen in reach.
[2023-07-13] VITALS (15 sets, daily range): BP systolic 112–130; BP diastolic 61–84; PULSE 70; BMI 25.7
--- NOTE | 2023-07-13 03:00 | PTCARENOTE ---
Pt self positioning throughout the night,physical assessment is stable,pt becomes impatient with care,but will cooperate.VS stable.SR cafeteria monitor.
[2023-07-13] MEDS: TYLENOL 1000 MG PO ×3 (04:35→21:14)
[2023-07-13 05:30] LABS: Hematocrit 27.3 % (39.0-52.0); Hemoglobin 9.3 g/dL (13.0-18.0); Mean Corp Hgb Conc. 34.1 g/dL (33.0-37.0); Mean Corpuscular Hgb 29.3 pg (27.0-31.0); Mean Corpuscular Volume 86.1 fL (80.0-94.0); Mean Platelet Volume 9.3 fL (7.4-10.4); Platelet Count 391 10^3/uL (130-400); Red Blood Cell Count 3.17 10^6/uL (4.70-6.10); Red Cell Dist. Width 16.7 % (11.5-14.5); White Blood Cell Count 18.7 10^3/uL (4.8-10.8)
[2023-07-13 06:00] LABS: Blood Urea Nitrogen 53 mg/dl (9-20); Calcium 8.3 mg/dl (8.4-10.2); Carbon Dioxide 24 mmol/L (22-30); Chloride 101 mmol/L (98-107); Estimated Creatinine Clearance 17 ml/min; Glucose 79 mg/dl (70-99); Potassium 4.4 mmol/L (3.5-5.1); Sodium 137 mmol/L (135-145); eGFR 12.03
[2023-07-13] MEDS: FIRVANQ 125 MG PO ×3 (07:19→18:32)
[2023-07-13 07:42] LABS: Glucose - Point of Care 85 mg/dl (70-99)
[2023-07-13] MEDS: NOVOLOG FLEXPEN-LOW RESISTANCE SC ×3 (08:39→17:28)
[2023-07-13] MEDS: LOW STRENGTH ASPIRIN 81 MG PO (08:40)
[2023-07-13] MEDS: LOPRESSOR 25 MG PO ×2 (08:40→20:44)
[2023-07-13] MEDS: NORVASC 10 MG PO (08:40)
[2023-07-13] MEDS: NSS (PRESERVATIVE FREE) 10 ML IV ×2 (08:41→20:45)
[2023-07-13] MEDS: PROTONIX IV 40 MG IV ×2 (08:41→20:45)
[2023-07-13] MEDS: FLUSH (NSS) 2 FLUSH IV ×2 (08:44→15:12)
--- NOTE | 2023-07-13 08:54 | W.PN.HOSP.TC ---
Today's Communication/Plan
-
prepping for colonoscopy Friday
HGB stable for now
Assessment / Plan
Assessment / Plan
Patient is a 68y M with PMH significant for osteomyelitis / discitis, LUIS ANGEL requiring HD, DM-II and recent admission for encephalopathy and C Diff colitis who presents to ED from OR for evaluation of hypoglycemic episodes.
acute blood loss anemia on anemia of chronic disease developed during this admission--likely from acute upper GI bleed exacerbated by Eliquis/plavix--still passing burgundy stools--transfused (got 7 units in total) apprec GI--possible duodenal
ulcer? PUD?, denies abdominal pain--now on full liquids, prepping for colonoscopy on Friday--follow H&H--PPI drip--apprec GI
Type 2 DM with Hypoglycemia likely from medications (oral hypoglycemic agents)--resolved, was admitting issue---holding glipizide and metformin now and at [place]--s/p 2 doses of octreotide--s/p dextrose infusion--A1C during recent visit was 5.9%--
Right heel wound with bone exposed and osteomyelitis--s/p wound care consult--x-ray suggestive of osteomyelitis--apprec Podiatry --likely will need amputation eventually
C. Diff Colitis-- improving WBC--Continue PO Vanco--if return of diarrhea would need ID consult for recurrent C. Diff
Lumbar Osteomyelitis/Discitis--Stable. No complaints of back pain--No fevers/chills--Continue current cefazolin dosing.
LUIS ANGEL now Requiring HD--Patient developed LUIS ANGEL during initial hospitalization at [facility] and was initiated on HD--Now on T-H-Sat schedule--Nephrology evaluation for HD needs during hospital stay.
ASCVD--Stable. Prior h/o PAD s/p RLE stenting--HOLD current med regimen including plavix, Eliquis
DVT Prophylaxis: On Eliquis
Code Status: Full
Anticipated Discharge: > 48 hours
Subjective/Interval History
-
Date of Service: July 13, 2023
pt upset about full liquid diet--he doesn't know if he is still bleeding or not
Objective Data
-
Labs:
Laboratory Results
07/12/23 07/13/23 07/13/23
21:03 04:30 13:00
WBC 18.7 H
Hgb 8.9 L 9.3 L Pending
Hct 25.6 L 27.3 L Pending
Plt Count 391
Sodium 137
Potassium 4.4
Chloride 101
Carbon Dioxide 24
BUN 53 H
Creatinine 5.0 H*
Glucose 79
Calcium 8.3 L
07/13/23
21:00
WBC
Hgb Pending
Hct Pending
Plt Count
Sodium
Potassium
Chloride
Carbon Dioxide
BUN
Creatinine
Glucose
Calcium
Vital Signs:
max temp for 24 hours
07/13/23
03:20
Temp 98.7 F
Vital Signs
Temp Pulse Resp BP Pulse Ox
98 F 80 13 124/66 96
07/13/23 08:06 07/13/23 08:40 07/13/23 06:00 07/13/23 08:40 07/13/23 04:00
I&O
07/12/23 07/13/23 07/14/23
06:59 06:59 06:59
Intake Total 750 / 750 120 / 120
Output Total 200 / 200
Balance 750 / 750 -80 / -80
Review of Systems
-
All other systems: Reviewed and negative
Physical Exam
-
General: Well Developed, Well Nourished and Appears Chronically Ill
HEENT: Normocephalic and Atraumatic
Respiratory: Clear to Auscultation; Negative Wheezes or Rhonchi
Cardiac: Regular Rhythm and S1/S2; Negative Murmur
GI: Soft, Nontender, Nondistended and Normal Bowel Sounds
Musculoskeletal: No Clubbing, No Cyanosis and No Edema
Skin: Ulcers (right heel with osteomyelitis)
Neuro: Awake
Psych: Calm
--- NOTE | 2023-07-13 09:20 | W.PN.NEPH.PH ---
Today's Communication / Plan
-
HD tomorrow
Assessment/Plan
-
Assessment:
ESRD
Anemia
Cdiff colitis
Hypoglycemia
Recent epidural/psoas abscess
chronic R heel wound
Plan:
plan for HD tomorrow
Continue antibiotics for C. difficile
GI eval/scope friday
-
-
Date of Service: July 13, 2023
CC / HPI / ROS
-
Chief Complaint:
ESRD
History of Present Illness:
tolerated HD friday
Hgb stable
BP stable
Review of Systems:
no CP/SOB
Labs
-
Labs:
WBC 18.7 10^3/uL (4.8-10.8) H 07/13/23 04:30
RBC 3.17 10^6/uL (4.70-6.10) L 07/13/23 04:30
Plt Count 391 10^3/uL (130-400) 07/13/23 04:30
Sodium 137 mmol/L (135-145) 07/13/23 04:30
Potassium 4.4 mmol/L (3.5-5.1) 07/13/23 04:30
Chloride 101 mmol/L (98-107) 07/13/23 04:30
Carbon Dioxide 24 mmol/L (22-30) 07/13/23 04:30
BUN 53 mg/dl (9-20) H 07/13/23 04:30
Creatinine 5.0 mg/dL (0.7-1.3) H* 07/13/23 04:30
eGFR 12.03 07/13/23 04:30
Glucose 79 mg/dl (70-99) 07/13/23 04:30
Calcium 8.3 mg/dl (8.4-10.2) L 07/13/23 04:30
Albumin 2.5 g/dl (3.5-5.0) L 07/12/23 05:26
Physical Exam
-
Vital Signs:
Vital Signs
Temp Pulse Resp BP Pulse Ox
98 F 80 13 124/66 96
07/13/23 08:06 07/13/23 08:40 07/13/23 06:00 07/13/23 08:40 07/13/23 04:00
Cardiovascular:: Regular rate and rhythm
Respiratory:: Bilateral: Coarse
Lung Excursion:: Normal
Abdomen:: Nontender and Soft
Bowel Sounds:: Normal
Extremity Edema:: None: Bilateral:
--- NOTE | 2023-07-13 10:24 | W.PN.ID1 ---
Date of Service
Date of Service: July 13, 2023
Today's Communication
continue cefazolin for planned course - 8 weeks - through 08/09/23
continue oral vanc 125 mg QID through 07/12, then prophylactic Vanco 125 mg po BID through 08/14/23
Assessment / Plan
Diarrhea - resolved
Recent diagnosis of C. difficile
- current testing negative.
Persistent hypoglycemia - resolved
- continue oral vanc 125 mg QID through 07/12, then prophylactic Vanco 125 mg po BID through 08/14/23
Suspected osteomyelitis of the right heel.
- Probable source of persistent leukocytosis
- Podiatry has been consulted - appreciate their input
- continue local wound care
- Pt with PAD, poor healing potention. LLE amputation is likely outcome; no urgent findings of cellulitis.
- Follow up with his vascular surgeon in about 1 week
L2-L3 and possibly L3-L4 Discitis, Osteomyelitis
Epidural abscess from L1- sacrum, s/p laminectomy (06/13/2023)
Psoas Abscesses bilaterally
MSSA Bacteremia - cleared
LUIS ANGEL: ATN vs PIGN
- blood cultures no growth to date
- continue cefazolin for planned course - 8 weeks - through 08/09/23
- cefazolin dosed for hemodialysis (2gm/2gm/3gm)
- outpatient follow up with patients [facility] physicians following D/C
����������������������������������������������������������
Chief Complaint
-: Leukocytosis and Other (diarrhea; Hx epidural abscess)
Subjective / Review of Systems
No new complaints.
Vital Signs / Physical Exam
Vital Signs
Vital Signs
Temp Pulse Resp BP Pulse Ox
98 F 80 13 124/66 96
07/13/23 08:06 07/13/23 08:40 07/13/23 06:00 07/13/23 08:40 07/13/23 04:00
Physical Exam
Constitutional: No Acute Distress
Pulmonary: Clear
Gastrointestinal: Soft and Non Tender
Extremities: Negative Edema
Objective Data
Lab Data
Lab Results
07/13/23 04:30
Estimated Creat Clear 17 ml/min 07/13/23 04:30
Total Bilirubin 0.5 mg/dl (0.2-1.3) 07/12/23 05:
AST 16 U/L (17-59) L 07/12/23 05:26
ALT < 10 U/L (0-50) 07/12/23 05:26
Alkaline Phosphatase 207 U/L (38-126) H 07/12/23 05:
Most recent labs reviewed.
Micro Results:
07/09/23 12:46 C. difficile GDH Antigen & Toxins - Final
Feces/Stool Negative for toxigenic C.difficile
07/10/23 CT a/p: There are bilateral fluid collections in the psoas left greater than right. Most consistent with treated abscesses, forming seromas in a patient with a history of known psoas abscess. No free air. No free fluid or fluid collection.
No focal area of abnormal hemorrhage in the bowel to suggest GI hemorrhage. Diverticulosis. No CT evidence for diverticulitis. The patient's GI bleed may be due to intermittent bleeding from a diverticulum. No bleeding identified on the current
exam. Patient is status post laminectomy, and by report is undergoing treatment for osteomyelitis discitis. Unfortunately there are no prior exams for comparison. There is a small fluid collection in the postoperative bed most consistent with
postoperative change. Mildly prominent lymph nodes in the rabia hepatis and in the pelvis, likely reactive
--- NOTE | 2023-07-13 11:09 | W.PN.GI.CBS2 ---
Today's Communication / Plan
-
CLD and 2L [place] today at noon
Plan for extended 2 day prep for EGD/colonoscopy Friday after eliquis/plavix washout
Assessment / Plan
-
Pt is a 68yo with hx LUIS ANGEL resulting in ESRD on DH, chronic anemia, DM, PAD with chronic heal wound with osteo, RLE angio and stent on chronic Eliquis, ASA, and Plavix(managed with Dr. Ortiz -vascular at [place]), psoas abscess b/l, MSSA
bacteremia, epidural abscess with salcedo (06/12), chronic pain, and GERD. He was noted + for C-diff 06/28 with admission. He is now noted with worsening of anemia with burgundy stool and also noted reported hematuria last admission. Per hospital
records chronic anemia hbb 7-8 range since early June now 5-6 range. BUN 51 slightly higher than prior 20-40.
Impression
-worsening chronic anemia
no prior EGD/colon
-black/burgundy stools
-recent c-diff on vanco
-ESRD on HD
-recent report hematuria
-DM
-PAD/ LE chronic wound prior LE stenting on ASA, Eliquis , Plavix managed at [place] vascular Dr. Ortiz
-MSSA bacteremia
-epidural abscess with lami 06/12
-GERD
Plan
- C/w Protonix IV BID, c/w pepcid
- C/w oral vancomycin for h/o Cdiff
- Serial H/H
- CLD today and tomorrow for slow colonic cleanse
- Anticipate EGD/colonoscopy on Friday after eliquis and plavix washout
- last Eliquis 07/07 and Plavix 07/08 currently on hold
- Anticipate 2 day prep starting tomorrow
Will follow with you
Subjective
Subjective
Date of Service: July 13, 2023
Large dark stool documented today. Denies abd pain, nausea/vomiting.
Objective
Data Reviewed
Laboratory Data:
Laboratory Results
07/13/23 04:30
Laboratory Results
Magnesium 1.9 mg/dl (1.6-2.3) 07/11/23 04:40
Total Bilirubin 0.5 mg/dl (0.2-1.3) 07/12/23 05:26
AST 16 U/L (17-59) L 07/12/23 05:26
ALT < 10 U/L (0-50) 07/12/23 05:26
Alkaline Phosphatase 207 U/L (38-126) H 07/12/23 05:26
Vital Signs and I&O:
Vital Signs
Temp Pulse Resp BP Pulse Ox
98 F 80 13 124/66 96
07/13/23 08:06 07/13/23 08:40 07/13/23 06:00 07/13/23 08:40 07/13/23 04:00
I&O
07/12/23 07/13/23 07/14/23
06:59 06:59 06:59
Intake Total 750 / 750 120 / 120
Output Total 200 / 200
Balance 750 / 750 -80 / -80
Physical Exam
Physical Exam
GEN: No acute distress, conversant but sleepy appearing
HEENT: anicteric, extraocular movements intact, clear oropharynx without exudates
GI: soft, non-distended, not tender to palpation, normal active bowel sounds, no hepatosplenomegaly
EXT: RLE in boot
NEURO: AAOx3, non-focal
[2023-07-13] MEDS: DULCOLAX 10 MG PO (12:11)
[2023-07-13 12:18] LABS: Glucose - Point of Care 134 mg/dl (70-99)
[2023-07-13] MEDS: NULYTELY SOLUTION 2 LITERS PO (12:18)
[2023-07-13] MEDS: DILAUDID 0.25 MG IV ×2 (15:10→20:53)
[2023-07-13 17:07] LABS: Glucose - Point of Care 119 mg/dl (70-99)
--- NOTE | 2023-07-13 19:41 | PTCARENOTE ---
Pt started on [place] prep at noon today, Pt is drinking it slowly and has not quite completed the 2Liters, Handed off remainder of 2L to night RN. Pt has begun passing loose dark brown stool this afternoon. Using bedpan as he is unable to stand at
bedside due to back pain.
--- NOTE | 2023-07-13 20:00 | PTCARENOTE ---
Received pt resting in bed. Pt AAOx3 but forgetful. Upset that he cannot eat. Lungs decreased on RA. SR on the monitor. + BS. R foot dressing CDI - refusing to be changed at this time. Laminectomy site w/ swelling. Swelling to R side. Pt c/o back, L
upper leg/hip pain, and R foot pain. Pt on bowel prep. Stool light brown/liquid.
[2023-07-13 21:28] LABS: Glucose - Point of Care 129 mg/dl (70-99)
[2023-07-14] VITALS (12 sets, daily range): BP systolic 118–144; BP diastolic 45–84; BMI 26.2
[2023-07-14] MEDS: DILAUDID 0.25 MG IV ×5 (00:45→16:42)
[2023-07-14] MEDS: DILAUDID 0.5 MG IV (01:15)
[2023-07-14] MEDS: FLUSH (NSS) 2 FLUSH IV (01:16)
--- NOTE | 2023-07-14 02:15 | PTCARENOTE ---
Pt yelling out in pain after dressing change to R foot - 11/26. Additional 1 x order given and patient requested it be redressed, which I did. Pt now w/ 06/26 pain and feels much more comfortable. Still w/ frequent yellow/brown stools.
[2023-07-14] MEDS: NSS (PRESERVATIVE FREE) 10 ML IV ×2 (07:32→20:10)
[2023-07-14] MEDS: LOW STRENGTH ASPIRIN 81 MG PO (07:32)
[2023-07-14] MEDS: PROTONIX IV 40 MG IV ×2 (07:32→20:10)
[2023-07-14] MEDS: TYLENOL 1000 MG PO ×3 (07:32→20:09)
[2023-07-14] MEDS: LOPRESSOR PO (07:39)
[2023-07-14] MEDS: NORVASC PO (07:39)
--- NOTE | 2023-07-14 08:13 | PTCARENOTE ---
Assumed care of pt from night RN, pt AAOx3, forgetful at times. Pt had c/o severe whole body pain this AM, prn Dilaudid administered as ordered as well as scheduled Tylenol. Pt currently receiving HD. Pt with multiple complaints about his clear
liquid diet. Reinforced the need to remain compliant as he is scheduled for colonoscopy tomorrow. Will continue to monitor through shift.
[2023-07-14 08:15] LABS: Glucose - Point of Care 99 mg/dl (70-99)
[2023-07-14 08:17] LABS: Hematocrit 25.3 % (39.0-52.0); Hemoglobin 8.5 g/dL (13.0-18.0); Mean Corp Hgb Conc. 33.6 g/dL (33.0-37.0); Mean Corpuscular Hgb 29.2 pg (27.0-31.0); Mean Corpuscular Volume 86.9 fL (80.0-94.0); Mean Platelet Volume 9.4 fL (7.4-10.4); Platelet Count 467 10^3/uL (130-400); Red Blood Cell Count 2.91 10^6/uL (4.70-6.10); Red Cell Dist. Width 16.7 % (11.5-14.5); White Blood Cell Count 20.6 10^3/uL (4.8-10.8)
[2023-07-14] MEDS: NOVOLOG FLEXPEN-LOW RESISTANCE SC ×3 (08:20→16:49)
[2023-07-14 08:24] LABS: INR 2.18; PT 24.1 Sec (11.4-14.6)
[2023-07-14] MEDS: RETACRIT 10000 UNITS IV (08:37)
--- NOTE | 2023-07-14 08:56 | W.PN.HOSP.TC ---
Today's Communication/Plan
-
see bold
Assessment / Plan
Assessment / Plan
68 M with PMH significant for osteomyelitis/discitis, LUIS ANGEL requiring HD, DM2 and recent admission for encephalopathy and C Diff colitis who [place] from [place] evaluation of hypoglycemic episodes.
Gen: NAD, Awake and alert
Eyes: EOMI, PERRLA, no scleral icterus.
Neck: supple.
CV: RRR, +S1/S2, no m/r/g.
Resp: CTAB, no rales, wheezes, or rhonchi.
Abd: +BS, soft, NT, ND
Skin: No rashes.
Neuro: CN 2-12 intact, non-focal.
Psych: Normal mood and affect.
Acute blood loss anemia:
-developed during hospitalization
-underlying anemia of chronic disease
-likely due to acute upper GI bleed exacerbated by Eliquis/Plavix
-s/p 7U pRBCs
-was on PPI gtt, now on IV BID
-for EGD/colonoscopy tomorrow
-GI following
DM2 with hypoglycemia:
-a1c on 07/01/23 was 5.9%
-was reason for admission
-due to oral hypoglycemic agents, now stopped
-s/p octreotide and dextrose infusion
-SSI/accuchecks
Right heel wound with bone exposed and osteomyelitis:
-s/p wound care consult
-x-ray suggestive of osteomyelitis
-as per Podiatry will likely will need amputation eventually
Other problems:
C. Diff Colitis: cont PO Vanco 125 mg PO BID through 08/14/23 as per ID
Lumbar Osteomyelitis/Discitis: Continue current cefazolin dosing
LUIS ANGEL now Requiring HD: cont HD as per renal
CAD: h/o PAD s/p RLE stenting. Plavix/Eliquis on hold as above for GIB.
FULL/SCDs (with GIB)
Anticipated Discharge: 24 - 48 hours
Subjective/Interval History
-
Date of Service: July 14, 2023
c/o whole body pain. Denies CP/SOB.
Objective Data
-
Labs:
Laboratory Results
07/14/23
07:45
WBC 20.6 H
Hgb 8.5 L
Hct 25.3 L
Plt Count 467 H
PT 24.1 H
INR 2.18
Sodium Pending
Potassium Pending
Chloride Pending
Carbon Dioxide Pending
BUN Pending
Creatinine Pending
Glucose Pending
Calcium Pending
Vital Signs:
Vital Signs
Temp Pulse Resp BP Pulse Ox
97.9 F 73 13 135/70 95
07/14/23 03:25 07/14/23 08:00 07/14/23 08:00 07/14/23 08:00 07/14/23 07:30
I&O
07/13/23 07/14/23 07/15/23
06:59 06:59 06:59
Intake Total 120 / 120 1000 / 1000
Output Total 200 / 200 150 / 150
Balance -80 / -80 850 / 850
[2023-07-14 09:37] LABS: Calcium 8.2 mg/dl (8.4-10.2); Carbon Dioxide 24 mmol/L (22-30); Chloride 101 mmol/L (98-107); Estimated Creatinine Clearance 14 ml/min; Glucose 88 mg/dl (70-99); Sodium 136 mmol/L (135-145); eGFR 9.12
--- NOTE | 2023-07-14 09:39 | W.PN.GI.CBS2 ---
Today's Communication / Plan
-
C/w slow colonic prep all day today
Anticipate EGD/colon tomorrow
Will follow with you
Assessment / Plan
-
Pt is a 68yo with hx LUIS ANGEL resulting in ESRD on DH, chronic anemia, DM, PAD with chronic heal wound with osteo, RLE angio and stent on chronic Eliquis, ASA, and Plavix(managed with Dr. Ortiz -vascular at [place]), psoas abscess b/l, MSSA
bacteremia, epidural abscess with salcedo (06/12), chronic pain, and GERD. He was noted + for C-diff 06/28 with admission. He is now noted with worsening of anemia with burgundy stool and also noted reported hematuria last admission. Per hospital
records chronic anemia hbb 7-8 range since early June now 5-6 range. BUN 51 slightly higher than prior 20-40.
Impression
-Worsening chronic anemia
no prior EGD/colon
Hbg on admission 6
-black/burgundy stools
-recent c-diff on vanco
-ESRD on HD
-recent report hematuria
-DM
-PAD/ LE chronic wound prior LE stenting on ASA, Eliquis , Plavix managed at [place] vascular Dr. Ortiz
-MSSA bacteremia
-epidural abscess with lami 06/12
-GERD
Plan
- C/w Protonix IV BID, c/w pepcid
- C/w oral vancomycin for h/o Cdiff
- Serial H/H
- CLD today and NPO at DC
- Anticipate EGD/colonoscopy on Friday after eliquis and plavix washout
- last Eliquis 07/07 and Plavix 07/08 currently on hold
Will follow with you
Subjective
Subjective
Date of Service: July 14, 2023
Getting HD this AM. No complaints. Denies abd pain, nausea/vomiting. Tolerating CLD
Objective
Data Reviewed
Laboratory Data:
Laboratory Results
07/14/23 07:45
07/14/23 07:45
Laboratory Results
PT 24.1 Sec (11.4-14.6) H 07/14/23 07:45
INR 2.18 07/14/23 07:45
Magnesium 1.9 mg/dl (1.6-2.3) 07/11/23 04:40
Total Bilirubin 0.5 mg/dl (0.2-1.3) 07/12/23 05:26
AST 16 U/L (17-59) L 07/12/23 05:26
ALT < 10 U/L (0-50) 07/12/23 05:26
Alkaline Phosphatase 207 U/L (38-126) H 07/12/23 05:26
Vital Signs and I&O:
Vital Signs
Temp Pulse Resp BP Pulse Ox
98.7 F 73 13 135/70 95
07/14/23 07:20 07/14/23 08:00 07/14/23 08:00 07/14/23 08:00 07/14/23 07:30
I&O
07/13/23 07/14/23 07/15/23
06:59 06:59 06:59
Intake Total 120 / 120 1000 / 1000
Output Total 200 / 200 150 / 150
Balance -80 / -80 850 / 850
Physical Exam
Physical Exam
GEN: No acute distress, conversant, pleasant
HEENT: anicteric, extraocular movements intact, clear oropharynx without exudates
GI: soft, obese mildly-distended, not tender to palpation, normal active bowel sounds, no hepatosplenomegaly
EXT: 1+ edema bilaterally, RLE in boot
NEURO: AAOx3, non-focal
--- NOTE | 2023-07-14 10:02 | W.PN.NEPH.HD ---
Assessment
-
Seen on HD. no complaints.VSS, access ok
scope tomorrow
Progress Note - Hemodialysis
-
Date of Service: July 14, 2023
Duration: 30 minutes and 3 hours
Potassium Bath: 3
Calcium Bath: 2.5
Ultrafiltration: Other (2.5kg)
Blood Flow: 400
Dialysate Flow: 600
Heparin: no
EPO: 80880 units
[2023-07-14 10:30] LABS: Blood Urea Nitrogen 66 mg/dl (9-20); Potassium 4.1 mmol/L (3.5-5.1)
--- NOTE | 2023-07-14 10:46 | W.PN.ID1 ---
Date of Service
Date of Service: July 14, 2023
Today's Communication
See below.
Assessment / Plan
#Diarrhea - resolved
Recent diagnosis of C. difficile
- current testing negative.
Persistent hypoglycemia - resolved
- continue oral vanc 125 mg QID through 07/12, then prophylactic Vanco 125 mg po BID through 08/14/23
#Necrotic/ischemic right heel chronic wound
# PAD
- Suspected osteomyelitis of the right heel.
- Most likely source of rising leukocytosis
- Podiatry has been consulted - appreciate their input
Pt with PAD, poor healing potential. LLE amputation is likely outcome; no urgent findings of cellulitis.
- Follow up with his vascular surgeon in about 1 week
- continue local wound care
#L2-L3 and possibly L3-L4 Discitis, Osteomyelitis
Epidural abscess from L1- sacrum, s/p laminectomy (06/13/2023)
Psoas Abscesses bilaterally
MSSA Bacteremia - cleared
LUIS ANGEL: ATN vs PIGN
- blood cultures no growth
- continue cefazolin for planned course - 8 weeks - through 08/09/23
- cefazolin dosed for hemodialysis (2gm/2gm/3gm)
- outpatient follow up with patients [facility] physicians following D/C
����������������������������������������������������������
Chief Complaint
-: Leukocytosis and Other (diarrhea; Hx epidural abscess)
Subjective / Review of Systems
Getting dialysis. No diarrhea. no foot pain. back pain better.
Per nurse, right heel wound is stable.
Vital Signs / Physical Exam
Vital Signs
Vital Signs
Temp Pulse Resp BP Pulse Ox
98.7 F 73 13 135/70 95
07/14/23 07:20 07/14/23 08:00 07/14/23 08:00 07/14/23 08:00 07/14/23 07:30
Physical Exam
Constitutional: No Acute Distress
Cardiovascular: Regular Rate and S1/S2
Pulmonary: Clear
Gastrointestinal: Soft, Non Tender and Non Distended
Extremities: Negative Edema
Neurological: AO x 3
Objective Data
Lab Data
Lab Results
07/14/23 07:45
07/14/23 07:45
PT 24.1 Sec (11.4-14.6) H 07/14/23 07:45
INR 2.18 07/14/23 07:45
Estimated Creat Clear 14 ml/min 07/14/23 07:45
Total Bilirubin 0.5 mg/dl (0.2-1.3) 07/12/23 05:26
AST 16 U/L (17-59) L 07/12/23 05:26
ALT < 10 U/L (0-50) 07/12/23 05:26
Alkaline Phosphatase 207 U/L (38-126) H 07/12/23 05:26
Most recent labs reviewed.
Micro Results:
07/09/23 12:46 C. difficile GDH Antigen & Toxins - Final
Feces/Stool Negative for toxigenic C.difficile
07/10/23 CT a/p: There are bilateral fluid collections in the psoas left greater than right. Most consistent with treated abscesses, forming seromas in a patient with a history of known psoas abscess. No free air. No free fluid or fluid collection.
No focal area of abnormal hemorrhage in the bowel to suggest GI hemorrhage. Diverticulosis. No CT evidence for diverticulitis. The patient's GI bleed may be due to intermittent bleeding from a diverticulum. No bleeding identified on the current
exam. Patient is status post laminectomy, and by report is undergoing treatment for osteomyelitis discitis. Unfortunately there are no prior exams for comparison. There is a small fluid collection in the postoperative bed most consistent with
postoperative change. Mildly prominent lymph nodes in the rabia hepatis and in the pelvis, likely reactive
[2023-07-14] MEDS: HEPARIN 4300 UNITS INTRACATH (11:24)
[2023-07-14] MEDS: DULCOLAX 10 MG PO ×2 (11:46→13:43)
[2023-07-14] MEDS: NULYTELY SOLUTION 2 LITERS PO ×2 (11:47→13:44)
[2023-07-14] MEDS: FIRVANQ 125 MG PO ×2 (11:47→20:09)
[2023-07-14 12:19] LABS: Glucose - Point of Care 80 mg/dl (70-99)
[2023-07-14] MEDS: ANCEF 10 IV (15:20)
[2023-07-14 17:05] LABS: Glucose - Point of Care 101 mg/dl (70-99)
--- NOTE | 2023-07-14 18:19 | PTCARENOTE ---
Multiple prompts from this RN through day for pt to drink his bowel prep. Pt drank approx 1.5 large cups so far but has been refusing for the last couple hours. BMs are still brown. Reinforced that if he isn't clear by tomorrow AM, they won't be
able to scope him and he won't be able to eat. Pt verbalizes understanding. Will continue to reinforce and report off to maintenance technician 3rd shift RN.
--- NOTE | 2023-07-14 19:51 | PTCARENOTE ---
Upon change of shift report and rounding to meet patient, pt demanding he be changed d/t large liquid incontinence. Pt made aware RN will be rounding to meet everyone then will be back to change him. After leaving room, pt constantly pressing call
mullen and yelling out for help. Pt educated on plan of care. Pt appears agitated with staff.
Incontinence care provided, barrier cream applied, gown/pad/diaper changed. BM is liquid brown/yellow in color.
Offered pt his bowel prep, pt adamantly refused at this time. Education provided, pt continues to refuse. RN will offer again at a later time.
Call mullen and tray table left within reach. Warm blankets provided for comfort.
[2023-07-14] MEDS: LOPRESSOR 25 MG PO (20:09)
[2023-07-14] MEDS: PEPCID 20 MG PO (20:09)
[2023-07-14 21:46] LABS: Glucose - Point of Care 112 mg/dl (70-99)
[2023-07-15] VITALS (9 sets, daily range): BP systolic 119–139; BP diastolic 63–84; BMI 25.1
[2023-07-15 08:00] LABS: Glucose - Point of Care 103 mg/dl (70-99)
[2023-07-15] MEDS: PROTONIX IV 40 MG IV ×2 (08:19→21:27)
[2023-07-15] MEDS: FIRVANQ 125 MG PO ×2 (08:19→21:26)
[2023-07-15] MEDS: DILAUDID 0.25 MG IV (08:19)
[2023-07-15] MEDS: NSS (PRESERVATIVE FREE) 10 ML IV ×2 (08:20→21:27)
[2023-07-15] MEDS: LOPRESSOR 25 MG PO ×2 (08:20→21:26)
[2023-07-15] MEDS: NORVASC 10 MG PO (08:20)
[2023-07-15] MEDS: LOW STRENGTH ASPIRIN 81 MG PO (08:21)
[2023-07-15] MEDS: TYLENOL 1000 MG PO ×2 (08:21→21:26)
[2023-07-15] MEDS: NOVOLOG FLEXPEN-LOW RESISTANCE SC ×3 (08:34→18:02)
--- NOTE | 2023-07-15 09:40 | W.PN.ID1 ---
Date of Service
Date of Service: July 15, 2023
Today's Communication
continue current treatments
Assessment / Plan
#Necrotic/ischemic right heel chronic wound
# PAD
- Suspected osteomyelitis of the right heel.
- Most likely source of rising leukocytosis
- Podiatry has been consulted - appreciate their input
Pt with PAD, poor healing potential. LLE amputation is likely outcome
- Follow up with his vascular surgeon is planned
- continue local wound care
#Diarrhea - resolved
Recent diagnosis of C. difficile
- current testing negative.
- continue prophylactic Vanco 125 mg po BID through 08/14/23
#L2-L3 and possibly L3-L4 Discitis, Osteomyelitis
Epidural abscess from L1- sacrum, s/p laminectomy (06/13/2023)
Psoas Abscesses bilaterally
MSSA Bacteremia - cleared
LUIS ANGEL: ATN vs PIGN
- blood cultures no growth
- continue cefazolin for planned course - 8 weeks - through 08/09/23
- cefazolin dosed for hemodialysis (2gm/2gm/3gm)
- outpatient follow up with patients [facility] physicians following D/C
����������������������������������������������������������
Chief Complaint
-: Leukocytosis and Other (diarrhea; Hx epidural abscess)
Subjective / Review of Systems
afebrile
bp stable
EGD and colon planned for today
WBC 22
hgb 9
odor from the foot is notable
Vital Signs / Physical Exam
Vital Signs
Vital Signs
Temp Pulse Resp BP Pulse Ox
98.2 F 88 20 134/63 96
07/15/23 02:52 07/15/23 08:20 07/15/23 06:00 07/15/23 08:20 07/15/23 06:03
Physical Exam
Constitutional: No Acute Distress and Chronically Ill
Cardiovascular: Regular Rate and S1/S2; Negative Murmur or Rub
Pulmonary: Clear and Symmetric; Negative Wheezes or Rales
Gastrointestinal: Soft, Non Tender, Non Distended and Normal Bowel Sounds
Skin: Warm and Dry; Negative Rash or Jaundice
Neurological: Awake
Objective Data
Lab Data
Lab Results
07/14/23 07:45
PT 24.1 Sec (11.4-14.6) H 07/14/23 07:45
INR 2.18 07/14/23 07:45
Estimated Creat Clear 14 ml/min 07/14/23 07:45
Total Bilirubin 0.5 mg/dl (0.2-1.3) 07/12/23 05:26
AST 16 U/L (17-59) L 07/12/23 05:26
ALT < 10 U/L (0-50) 07/12/23 05:26
Alkaline Phosphatase 207 U/L (38-126) H 07/12/23 05:26
Most recent labs reviewed.
Micro Results:
07/09/23 12:46 C. difficile GDH Antigen & Toxins - Final
Feces/Stool Negative for toxigenic C.difficile
07/10/23 CT a/p: There are bilateral fluid collections in the psoas left greater than right. Most consistent with treated abscesses, forming seromas in a patient with a history of known psoas abscess. No free air. No free fluid or fluid collection.
No focal area of abnormal hemorrhage in the bowel to suggest GI hemorrhage. Diverticulosis. No CT evidence for diverticulitis. The patient's GI bleed may be due to intermittent bleeding from a diverticulum. No bleeding identified on the current
exam. Patient is status post laminectomy, and by report is undergoing treatment for osteomyelitis discitis. Unfortunately there are no prior exams for comparison. There is a small fluid collection in the postoperative bed most consistent with
postoperative change. Mildly prominent lymph nodes in the rabia hepatis and in the pelvis, likely reactive
Care Review
Plan reviewed with: Physician (Dr Clay - leukocytosis)
[2023-07-15 09:46] LABS: % Basophils 0.4 % (0-2); % Eosinophils 0.3 % (0-6); % Immature Granulocytes 1.6 % (0-0.5); % Lymphocytes 5.7 % (20.5-51.1); % Monocytes 7.1 % (1.7-9.3); % Neutrophils 84.9 % (42.2-75.2); Absolute Basophils 0.1 10^3/uL (0-0.2); Absolute Eosinophils 0.1 10^3/uL (0-0.7); Absolute Immature Granulocytes 0.4 10^3/uL (0-0.05); Absolute Lymphocytes 1.3 10^3/uL (1.2-3.4); Absolute Monocytes 1.6 10^3/uL (0.1-0.6); Absolute Neutrophils 18.8 10^3/uL (1.4-6.5); Hematocrit 27.5 % (39.0-52.0); Hemoglobin 9.1 g/dL (13.0-18.0); Mean Corp Hgb Conc. 33.1 g/dL (33.0-37.0); Mean Corpuscular Hgb 28.8 pg (27.0-31.0); Mean Platelet Volume 9.4 fL (7.4-10.4); Nucleated Red Blood Cells % 0 % (-); Platelet Count 512 10^3/uL (130-400); Red Blood Cell Count 3.16 10^6/uL (4.70-6.10); Red Cell Dist. Width 16.4 % (11.5-14.5); White Blood Cell Count 22.2 10^3/uL (4.8-10.8)
--- NOTE | 2023-07-15 09:51 | W.PN.HOSP.TC ---
Today's Communication/Plan
-
see bold
Assessment / Plan
Assessment / Plan
68 M with PMH significant for osteomyelitis/discitis, LUIS ANGEL requiring HD, DM2 and recent admission for encephalopathy and C Diff colitis who presents to ED from [place] for evaluation of hypoglycemic episodes.
Gen: NAD, Awake and alert
Eyes: EOMI, PERRLA, no scleral icterus.
Neck: supple.
CV: irreg/irreg, +S1/S2, no m/r/g.
Resp: CTAB, no rales, wheezes, or rhonchi.
Abd: +BS, soft, NT, ND
Skin: No rashes.
Neuro: CN 2-12 intact, non-focal.
Psych: Normal mood and affect.
Acute blood loss anemia:
-developed during hospitalization
-underlying anemia of chronic disease
-likely due to acute upper GI bleed exacerbated by Eliquis/Plavix
-s/p 7U pRBCs
-was on PPI gtt, now on IV BID
-for EGD/colonoscopy today
-GI following
DM2 with hypoglycemia:
-a1c on 07/01/23 was 5.9%
-was reason for admission
-due to oral hypoglycemic agents, now stopped
-s/p octreotide and dextrose infusion
-SSI/accuchecks
Right heel wound with bone exposed and osteomyelitis:
-s/p wound care consult
-x-ray suggestive of osteomyelitis
-as per Podiatry will likely will need amputation eventually
-worsening leukocytosis is likely due to R heel OM
-[employer] message sent to Dr. Harris requesting that she see in follow up jeramy at [phone]. She will see in follow up today.
Other problems:
C. Diff Colitis: cont PO Vanco 125 mg PO BID through 08/14/23 as per ID
Lumbar Osteomyelitis/Discitis: Continue current cefazolin dosing
LUIS ANGEL now Requiring HD: cont HD as per renal
CAD: h/o PAD s/p RLE stenting. Plavix/Eliquis on hold as above for GIB.
FULL/SCDs (with GIB)
Anticipated Discharge: > 48 hours
Subjective/Interval History
-
Date of Service: July 15, 2023
Denies CP/SOB.
Objective Data
-
Labs:
Laboratory Results
07/15/23
09:12
WBC 22.2 H
Hgb 9.1 L
Hct 27.5 L
Plt Count 512 H
PT Pending
INR Pending
Vital Signs:
Vital Signs
Temp Pulse Resp BP Pulse Ox
98.2 F 88 20 134/63 96
07/15/23 02:52 07/15/23 08:20 07/15/23 06:00 07/15/23 08:20 07/15/23 06:03
I&O
07/14/23 07/15/23 07/16/23
06:59 06:59 06:59
Intake Total 1000 / 1000 480 / 480
Output Total 150 / 150 300 / 300
Balance 850 / 850 180 / 180
[2023-07-15 09:57] LABS: PT 27.8 Sec (11.4-14.6)
--- NOTE | 2023-07-15 11:01 | W.PN.NEPH.PH ---
Today's Communication / Plan
-
- HD tomorrow
Assessment/Plan
-
Assessment:
ESRD
Anemia
Cdiff colitis
Hypoglycemia
Recent epidural/psoas abscess
chronic R heel wound
Plan:
plan for HD tomorrow
Continue antibiotics for C. difficile
GI eval/scope today
-
-
Date of Service: July 15, 2023
CC / HPI / ROS
-
Chief Complaint:
ESRD
History of Present Illness:
tolerated HD friday
Hgb stable
BP stable
Review of Systems:
no CP/SOB
Labs
-
Labs:
WBC 22.2 10^3/uL (4.8-10.8) H 07/15/23 09:12
RBC 3.16 10^6/uL (4.70-6.10) L 07/15/23 09:12
Hgb 9.1 g/dL (13.0-18.0) L 07/15/23 09:12
Hct 27.5 % (39.0-52.0) L 07/15/23 09:12
Plt Count 512 10^3/uL (130-400) H 07/15/23 09:12
Sodium 136 mmol/L (135-145) 07/14/23 07:45
Potassium 4.1 mmol/L (3.5-5.1) 07/14/23 07:45
Chloride 101 mmol/L (98-107) 07/14/23 07:45
Carbon Dioxide 24 mmol/L (22-30) 07/14/23 07:45
BUN 66 mg/dl (9-20) H 07/14/23 07:45
Creatinine 6.3 mg/dL (0.7-1.3) H* 07/14/23 07:45
eGFR 9.12 07/14/23 07:45
Glucose 88 mg/dl (70-99) 07/14/23 07:45
Calcium 8.2 mg/dl (8.4-10.2) L 07/14/23 07:45
Albumin 2.5 g/dl (3.5-5.0) L 07/12/23 05:26
Physical Exam
-
Vital Signs:
Vital Signs
Temp Pulse Resp BP Pulse Ox
98.2 F 88 20 134/63 96
07/15/23 02:52 07/15/23 08:20 07/15/23 06:00 07/15/23 08:20 07/15/23 06:03
Cardiovascular:: Regular rate and rhythm
Respiratory:: Bilateral: Coarse
Lung Excursion:: Normal
Abdomen:: Nontender and Soft
Bowel Sounds:: Normal
Extremity Edema:: None: Bilateral:
Mccloud Catheter: No
[2023-07-15] MEDS: AQUAMEPHYTON 10 MG SC (12:17)
[2023-07-15 12:29] LABS: Glucose - Point of Care 92 mg/dl (70-99)
--- NOTE | 2023-07-15 13:48 | CON.VAS ---
Addendum entered and electronically signed by Allen Mccloud III, MD 07/15/23 14:16:
This patient was seen and examined with MONICA Morrison and MONICA Rivera. I agree with the history and physical exam as well as the assessment and plan. I have the following additions:
Extensive soft tissue and bony destruction involving the right heel/calcaneus
Malodorous
Significant amount of exposed necrotic bone
This is not a salvageable limb. I recommend below the knee amputation.
Patient seemed very surprised by this recommendation. He reports that he was told there would be limb preservation options at [place]. He is not ready to move forward with amputation.
Please contact us with any clinical changes or concerns or if patient changes his mind about amputation here at [facility].
Signed:
Allen Mclcoud III, MD
[facility] Vascular Surgery
[phone] (vehn)
Original Note:
Consultation
Consultation Request
Date/Time Consultation Performed: 07/15/2023 1400
Requesting Provider: Hospitalist
Performing Provider: Olga Lidia Lam, MICHELLE-C for Allen Mccloud III, MD
Reason for Consultation: Right foot calcaneus wound
Medical History
-
Chief Complaint: Hypoglycemia
History of Present Illness:
This is a 68-year-old male with significant past medical history of diabetes, GERD, hypertension, peripheral arterial disease, lumbar osteomyelitis, psoas abscess, LUIS ANGEL, chronic indwelling Mccloud, and chronic right heel wound presented to [place]
ED on 07/08/2023 from [facility] with reports of continuous hypoglycemic despite treatment at nursing facility. He was eventually admitted for medical management of leukocytosis, C. difficile, anemia suspected GI bleed, discitis
and chronic right heel wound. Hospital stay has been complicated by anemia and sepsis. Vascular surgery has been consulted to weigh in on right heel wound in regards to limb salvage. Patient does [facility] [place]
[facility] however he states that she has never done a procedure on him (although medical charts note placement of a stent in right lower extremity). He believes he has had the wound since April, but cannot recall precipitating factors
or incident that led to wound. He is a poor historian.
Past Medical History
Past Medical History: GERD, HTN, NIDDM and Other (Lumbar Osteomyelitis / Discitis, Psoas Abscess, LUIS ANGEL requiring HD, ASCVD / PAD, Chronic Right Heel Wound, Anemia of Chronic Disease, Chronic Indwelling Mccloud)
Past Surgical History: Orthopedic (Lumbar laminectomy) and Other (Right lower extremity arteriogram with intervention, right IJ tunneled HD catheter)
Social History
Tobacco: Non-Smoker
Alcohol: None
Drug: None
Allergies / Home Medications
Allergy/AdvReac Type Severity Reaction Status Date / Time
No Known Allergies Allergy Verified 07/07/23 22:43
�Medication �Instructions �Recorded �Confirmed �Type
acetaminophen 500 mg tablet 1,000 mg PO TID Pain 06/29/23 07/07/23 History
amlodipine 10 mg tablet 10 mg PO DAILY Blood Pressure 06/29/23 07/07/23 History
apixaban 2.5 mg tablet 2.5 mg PO BID Blood Clot 06/29/23 07/07/23 History
Prevention/Tx
aspirin 81 mg chewable tablet 81 mg PO DAILY Blood Clot 06/29/23 07/07/23 History
Prevention/Tx
bisacodyl 10 mg rectal suppository 10 mg NV DAILY PRN if no results 06/29/23 07/07/23 History
for MOM
cholecalciferol (vitamin D3) 25 25 mcg PO DAILY Supplement 06/29/23 07/07/23 History
mcg (1,000 unit) tablet
clopidogrel 75 mg tablet 75 mg PO DAILY Blood Clot 06/29/23 07/07/23 History
Prevention/Tx
glipizide 5 mg tablet 5 mg PO BID Diabetes 06/29/23 07/07/23 History
lidocaine 4 % topical patch 1 patch topical DAILY lower back 06/29/23 07/07/23 History
magnesium hydroxide 400 mg/5 mL 30 ml PO HSPRN PRN if no BM in 3 06/29/23 07/07/23 History
oral suspension (Milk of Magnesia) days
metformin 500 mg tablet 500 mg PO BID Diabetes 06/29/23 07/07/23 History
metoprolol tartrate 25 mg tablet 25 mg PO BID Blood Pressure 06/29/23 07/07/23 History
pantoprazole 40 mg tablet,delayed 40 mg PO DAILY Gastrointestinal 06/29/23 07/07/23 History
release Issue
oxycodone 10 mg tablet 10 mg PO Q6H PRN mod sev pain #14 07/03/23 07/07/23 Rx
tabs
metronidazole 500 mg tablet 500 mg PO TID #15 tabs 07/04/23 07/07/23 Rx
vancomycin 125 mg capsule 125 mg PO Q6H #90 caps 07/04/23 07/07/23 Rx
cefazolin 10 ml IV MOWE Infection 07/07/23 07/07/23 History
cefazolin 15 ml IV FR Infection 07/07/23 07/07/23 History
Review of Systems
-
History Source: Patient
Constitutional: Reports No Symptoms
EENT: Reports No Symptoms
Respiratory: Reports No Symptoms
Cardiac: Reports No Symptoms
Abdomen/GI: Reports Diarrhea
: Reports Other (Chronic Mccloud catheter)
Musculoskeletal: Reports No Symptoms
Skin: Reports Other (Right heel chronic calcaneus wound)
Neurological: Reports No Symptoms
Physical Exam
Vital Signs
Temp Pulse Resp BP Pulse Ox
98.5 F 88 20 134/63 96
07/15/23 11:40 07/15/23 08:20 07/15/23 06:00 07/15/23 08:20 07/15/23 06:03
Lab Results
07/15/23 09:12
07/14/23 07:45
Physical Exam
General: No Apparent Distress and Comfortable
HEENT: Normocephalic, Anicteric and Atraumatic
Respiratory: Non Labored Respirations
Cardiac: Negative JVD
GI: Non Distended
Musculoskeletal: No Edema
Skin: Warm and Other (Foul-smelling right calcaneus wound, with purulent drainage, and exposed bone)
Neuro: AO x 3
Pulses: Bilateral Dorsalis Pedis: Doppler (Bilateral DP nonpalpable)
Assessment / Plan
-
Assessment: 68-year-old male admitted with hypoglycemia, leukocytosis, C. difficile, and suspected GI bleed with chronic right heel wound
Plan:
Unfortunately, given the depth and size of wound limb salvage is not an option; would recommend either below-knee or above-knee amputation of right lower extremity. Patient currently requesting a second opinion from his prior vascular surgeon out
of [facility] [place].
We will continue to follow if patient becomes agreeable for amputation
I performed this shared service with the attending. I evaluated the patient [id number] and have entered clinical documentation as shown in the encounter note. I performed the following component(s): history and physical exam. Note that medical
decision making is not final until attested by vascular attending.
[2023-07-15] MEDS: NULYTELY SOLUTION 2 LITERS PO (17:14)
[2023-07-15] MEDS: TYLENOL PO (17:15)
--- NOTE | 2023-07-15 17:39 | PTCARENOTE ---
Pt intermittenly confused and argumentative. Mixed cooperation with bowel prep. Education provided. incontinent of large amounts of watery stool. Rectal trumpet in place. Remains oliguric. clear liquid diet for today. NPO tomorrow. Requires
frequent reminders and education but resting comfortably now after endoscopy procedure.
[2023-07-15 18:05] LABS: Glucose - Point of Care 114 mg/dl (70-99)
--- NOTE | 2023-07-15 21:42 | PTCARENOTE ---
Pt promoted to consume bowel prep. Pt irritated due to waking him up. Will continue to promote drinking prep. Pm Meds administered c/o complication. Pt with RT, draining yellowish brown stool. using urinal. Call mullen in reach. see full head to toe
in nursing shift assessment.
[2023-07-15 22:14] LABS: Glucose - Point of Care 115 mg/dl (70-99)
[2023-07-15] MEDS: DULCOLAX 20 MG PO (23:30)
[2023-07-16] VITALS (35 sets, daily range): BP systolic 93–136; BP diastolic 54–83; BMI 25.2
[2023-07-16 05:56] LABS: Glucose - Point of Care 97 mg/dl (70-99)
--- NOTE | 2023-07-16 08:09 | W.PN.HOSP.TC ---
Today's Communication/Plan
-
see bold
Assessment / Plan
Assessment / Plan
68 M with PMH significant for osteomyelitis/discitis, LUIS ANGEL requiring HD, DM2 and recent admission for encephalopathy and C Diff colitis who presents to ED from [place] for evaluation of hypoglycemic episodes.
Gen: remains NAD, Awake and alert
Eyes: EOMI, PERRLA, no scleral icterus.
Neck: supple.
CV: RRR with frequent premature beats, +S1/S2, no m/r/g.
Resp: remains CTAB, no rales, wheezes, or rhonchi.
Abd: +BS, soft, NT, ND
Skin: No rashes.
Neuro: CN 2-12 intact, non-focal.
Psych: Normal mood and affect.
EGD 07/15/23: LA Grade C reflux esophagitis with no bleeding in the middle and lower third of the esophagus. Small hiatal hernia. Normal examined duodenum.
Acute blood loss anemia:
-developed during hospitalization
-underlying anemia of chronic disease
-likely due to acute GI bleed exacerbated by Eliquis/Plavix
-s/p 7U pRBCs
-was on PPI gtt, now on IV BID
-EGD without source of bleeding as above
-colonoscopy today (pending INR after Vit K)
-GI following
DM2 with hypoglycemia:
-a1c on 07/01/23 was 5.9%
-was reason for admission
-due to oral hypoglycemic agents, now stopped
-s/p octreotide and dextrose infusion
-SSI/accuchecks
Right heel wound with bone exposed and osteomyelitis:
-s/p wound care consult
-x-ray suggestive of osteomyelitis
-as per Podiatry will likely will need amputation eventually
-worsening leukocytosis is likely due to R heel OM
-vascular surgery recommends R BKA, pt currently refusing until he speaks to his outside vascular surgeon
-c/s psych for capacity eval
Other problems:
C. Diff Colitis: cont PO Vanco 125 mg PO BID through 08/14/23 as per ID
Lumbar Osteomyelitis/Discitis: Continue current cefazolin dosing
LUIS ANGEL now Requiring HD: cont HD as per renal
CAD: h/o PAD s/p RLE stenting. Plavix/Eliquis on hold as above for GIB.
RN updated
FULL/SCDs (with GIB)
Anticipated Discharge: > 48 hours
Subjective/Interval History
-
Date of Service: July 16, 2023
Denies CP/SOB.
Objective Data
-
Labs:
Laboratory Results
07/16/23
06:59
PT Pending
INR Pending
Vital Signs:
Vital Signs
Temp Pulse Resp BP Pulse Ox
99.0 F 74 13 124/77 99
07/16/23 03:18 07/16/23 00:00 07/16/23 00:00 07/16/23 00:00 07/15/23 22:30
I&O
07/15/23 07/16/23 07/17/23
06:59 06:59 06:59
Intake Total 480 / 480 480 / 480
Output Total 300 / 300 250 / 250 50 / 50
Balance 180 / 180 230 / 230 -50 / -50
[2023-07-16 08:43] LABS: INR 1.52; PT 18.4 Sec (11.4-14.6)
[2023-07-16] MEDS: NOVOLOG FLEXPEN-LOW RESISTANCE SC ×3 (09:03→17:36)
[2023-07-16] MEDS: FIRVANQ 125 MG PO ×2 (09:26→19:56)
[2023-07-16] MEDS: NORVASC 10 MG PO (09:26)
[2023-07-16] MEDS: LOPRESSOR 25 MG PO ×2 (09:27→19:57)
[2023-07-16] MEDS: PROTONIX IV 40 MG IV ×2 (09:27→19:56)
[2023-07-16] MEDS: TYLENOL 1000 MG PO ×3 (09:27→21:55)
[2023-07-16] MEDS: NSS (PRESERVATIVE FREE) 10 ML IV ×2 (09:27→19:56)
[2023-07-16] MEDS: LOW STRENGTH ASPIRIN 81 MG PO (09:30)
[2023-07-16] MEDS: DILAUDID 0.25 MG IV ×2 (09:30→23:28)
[2023-07-16 09:38] LABS: % Basophils 0.4 % (0-2); % Eosinophils 0.2 % (0-6); % Immature Granulocytes 1.6 % (0-0.5); % Lymphocytes 3.1 % (20.5-51.1); % Neutrophils 89.7 % (42.2-75.2); Absolute Basophils 0.1 10^3/uL (0-0.2); Absolute Eosinophils 0.1 10^3/uL (0-0.7); Absolute Immature Granulocytes 0.5 10^3/uL (0-0.05); Absolute Monocytes 1.6 10^3/uL (0.1-0.6); Absolute Neutrophils 29.7 10^3/uL (1.4-6.5); Hematocrit 26.5 % (39.0-52.0); Mean Corpuscular Hgb 29.4 pg (27.0-31.0); Mean Corpuscular Volume 86.6 fL (80.0-94.0); Mean Platelet Volume 9.2 fL (7.4-10.4); Nucleated Red Blood Cells % 0 % (-); Platelet Count 627 10^3/uL (130-400); Red Blood Cell Count 3.06 10^6/uL (4.70-6.10); Red Cell Dist. Width 16.6 % (11.5-14.5)
--- NOTE | 2023-07-16 09:39 | WOUNDNOTE ---
R HEEL LATERAL VIEW
--- NOTE | 2023-07-16 09:40 | WOUNDNOTE ---
R HEEL AND FOOT MEDIAL VIEW
--- NOTE | 2023-07-16 09:42 | WOUNDNOTE ---
WON RN NOTE: Followed up today regarding R heel. Wound has much more black eschar and foul odor. Reviewed Vascular note from yesterday, amputation also recommended along with Podiatry, patient refused. Confirmed with vascular PA Olga Lidia Lam can order
Dakin's WTD dressing. Updated wound care orders, wrapped heel with blue mell. Nurse to apply dressing when Dakin's received, dressing supplies at bedside. Sacrum and L heel remain intact. Patient refusing to wear TruVue lite offloading heel boot,
states it is a pain in the neck and no one seems to understand that. When asked patient the plan for his R heel wound, patient replied that he needs to talk to his vascular surgeon Dr. Ortiz. Updated wound care and will follow as needed.
--- NOTE | 2023-07-16 09:53 | PTCARENOTE ---
Pt sent for colonoscopy at this time.
[2023-07-16 09:54] LABS: Blood Urea Nitrogen 44 mg/dl (9-20); Calcium 8.3 mg/dl (8.4-10.2); Carbon Dioxide 24 mmol/L (22-30); Chloride 101 mmol/L (98-107); Estimated Creatinine Clearance 15 ml/min; Glucose 88 mg/dl (70-99); Potassium 3.9 mmol/L (3.5-5.1); Sodium 136 mmol/L (135-145)
--- NOTE | 2023-07-16 11:24 | W.PN.UPDATE ---
Update Note
Progress Note Update
attempted to see patient however he was having colonoscopy. since this consult is for competence would see him tomorrow when hopefully he will be more awake and alert. he is also scheduled for hd this afternoon. i did review chart. patient
apparently refusing amputation bc he wants to speak to 'his' vascular surgeon first.
--- NOTE | 2023-07-16 11:27 | W.PN.UPDATE ---
Update Note
Progress Note Update
OK to restart Elilidia in 2 days
[2023-07-16 11:45] LABS: Glucose - Point of Care 125 mg/dl (70-99)
--- NOTE | 2023-07-16 11:48 | PTCARENOTE ---
Report rec'd from PACU -taken by KRYSTA Ni, Pt is cleared for diet, 2g Na diet order rec'd at this time.
[2023-07-16] MEDS: DAKIN'S SOLUTION 0.125% 1/4 STRENGTH 473 ML TOPICAL (12:20)
--- NOTE | 2023-07-16 12:54 | W.PN.ID1 ---
Date of Service
Date of Service: July 16, 2023
Today's Communication
recommend R BKA
- attempt temporizing medical therapy with unasyn, patient aware that a decision will need to be made in the very near future and in my opinion medical therapy alone is futile; he seems to be contemplating the decision and states that he will make a
decision tomorrow or the next day. I expressed that while it is not emergent today, I suspect it will be an emergent decision within days.
- offloading
- switched cefazolin to unasyn, continue vanc ppx
Assessment / Plan
#Necrotic/ischemic right heel chronic wound - progressive
# PAD
- osteomyelitis of the right heel.
- Most likely source of rising leukocytosis
- recommend BKA - discussed frankly with patient -I will attempt temporizing medical therapy with unasyn, patient aware that a decision will need to be made in the very near future and in my opinion medical therapy alone is futile; he seems to be
contemplating the decision and states that he will make a decision tomorrow or the next day. I expressed that while it is not emergent today, I suspect it will be an emergent decision within days. Left message for his vascular surgeon Dr Ortiz.
- offloading
#Diarrhea - resolved
Recent diagnosis of C. difficile
- current testing negative.
- continue prophylactic Vanco 125 mg po BID through 08/14/23
#L2-L3 and possibly L3-L4 Discitis, Osteomyelitis
Epidural abscess from L1- sacrum, s/p laminectomy (06/13/2023)
Psoas Abscesses bilaterally
MSSA Bacteremia - cleared
LUIS ANGEL: ATN vs PIGN
- blood cultures no growth
- continue cefazolin for planned course - 8 weeks - through 08/09/23
- cefazolin dosed for hemodialysis (2gm/2gm/3gm)
- outpatient follow up with patients [facility] physicians following D/C
����������������������������������������������������������
Chief Complaint
-: Leukocytosis and Other (diarrhea; Hx epidural abscess)
Subjective / Review of Systems
afebrile
bp stable
progressive leukocytosis and thrombocytosis noted
K stable
on HD
Vital Signs / Physical Exam
Vital Signs
Vital Signs
Temp Pulse Resp BP Pulse Ox
97.5 F 68 23 107/65 94
07/16/23 12:08 07/16/23 11:45 07/16/23 11:45 07/16/23 11:45 07/16/23 11:45
Physical Exam
Constitutional: No Acute Distress and Chronically Ill
Cardiovascular: Regular Rate and S1/S2; Negative Murmur or Rub
Pulmonary: Clear and Symmetric; Negative Wheezes or Rales
Gastrointestinal: Soft, Non Tender, Non Distended and Normal Bowel Sounds
Skin: Warm and Dry; Negative Rash or Jaundice
Wound: Other (obvious progression of the wound with about another inch of necrotic tissue around the heel, malodorous, extensive exposed calcaneous)
Objective Data
Lab Data
Lab Results
07/16/23 09:28
07/16/23 09:28
PT 18.4 Sec (11.4-14.6) H 07/16/23 08:22
INR 1.52 07/16/23 08:22
Estimated Creat Clear 15 ml/min 07/16/23 09:28
Total Bilirubin 0.5 mg/dl (0.2-1.3) 07/12/23 05:26
AST 16 U/L (17-59) L 07/12/23 05:26
ALT < 10 U/L (0-50) 07/12/23 05:26
Alkaline Phosphatase 207 U/L (38-126) H 07/12/23 05:26
Most recent labs reviewed.
Micro Results:
07/09/23 12:46 C. difficile GDH Antigen & Toxins - Final
Feces/Stool Negative for toxigenic C.difficile
07/10/23 CT a/p: There are bilateral fluid collections in the psoas left greater than right. Most consistent with treated abscesses, forming seromas in a patient with a history of known psoas abscess. No free air. No free fluid or fluid collection.
No focal area of abnormal hemorrhage in the bowel to suggest GI hemorrhage. Diverticulosis. No CT evidence for diverticulitis. The patient's GI bleed may be due to intermittent bleeding from a diverticulum. No bleeding identified on the current
exam. Patient is status post laminectomy, and by report is undergoing treatment for osteomyelitis discitis. Unfortunately there are no prior exams for comparison. There is a small fluid collection in the postoperative bed most consistent with
postoperative change. Mildly prominent lymph nodes in the rabia hepatis and in the pelvis, likely reactive
--- NOTE | 2023-07-16 13:36 | W.PN.NEPH.HD ---
Assessment
-
Seen on HD. no complaints. VSS, access ok
Progress Note - Hemodialysis
-
Date of Service: July 16, 2023
Duration: 30 minutes and 3 hours
Potassium Bath: 3
Calcium Bath: 2.5
Opti-Dialyzer: 160
Ultrafiltration: Other (2kg)
Blood Flow: 400
Dialysate Flow: 600
Heparin: no
EPO: no
[2023-07-16 16:59] LABS: Glucose - Point of Care 99 mg/dl (70-99)
[2023-07-16] MEDS: CARAFATE SUSPENSION PO ×2 (17:33→17:37)
[2023-07-16] MEDS: UNASYN IV (17:33)
--- NOTE | 2023-07-16 20:00 | PTCARENOTE ---
Resumed care of pt sitting up in bed AAOx3 with family at bedside. Pt with flat affect. HR in the 70's in NSR on the monitor. Lungs dec t/o. Hyper bowel, round abd. Pt oliguric, no urine output at this time. HD earlier todya. Right heel dressing
intact. Right Chest wall HD cath in place. Left wrist int capped. Left AC int capped. Right ac int capped. Weak peripheral pulses present. Heels elevated on pillows. All questions answered. No complaints offered at this time. Will continue to
monitor.
[2023-07-16] MEDS: PEPCID 20 MG PO (21:55)
[2023-07-16 22:13] LABS: Glucose - Point of Care 138 mg/dl (70-99)
--- NOTE | 2023-07-16 23:35 | SUR.PHASEI ---
Pt received from previous RN. Pt awake and watching TV. Pt c/o 11/26 right heal pain where is heel wound is. Pt given ordered Dilaudid. RR even and unlabored. Call mullen in reach.
[2023-07-17] VITALS (9 sets, daily range): BP systolic 105–138; BP diastolic 43–82; BMI 25.4
[2023-07-17] MEDS: DILAUDID 0.25 MG IV ×2 (04:27→08:57)
[2023-07-17 05:04] LABS: Hematocrit 27.6 % (39.0-52.0); Mean Corp Hgb Conc. 32.6 g/dL (33.0-37.0); Mean Corpuscular Hgb 29.1 pg (27.0-31.0); Mean Corpuscular Volume 89.3 fL (80.0-94.0); Mean Platelet Volume 9.2 fL (7.4-10.4); Platelet Count 585 10^3/uL (130-400); Red Blood Cell Count 3.09 10^6/uL (4.70-6.10); Red Cell Dist. Width 16.6 % (11.5-14.5)
[2023-07-17 05:29] LABS: Blood Urea Nitrogen 24 mg/dl (9-20); Carbon Dioxide 26 mmol/L (22-30); Chloride 101 mmol/L (98-107); Estimated Creatinine Clearance 27 ml/min; Glucose 88 mg/dl (70-99); Potassium 4.4 mmol/L (3.5-5.1); Sodium 136 mmol/L (135-145); eGFR 20.56
[2023-07-17 07:56] LABS: Glucose - Point of Care 95 mg/dl (70-99)
[2023-07-17] MEDS: NOVOLOG FLEXPEN-LOW RESISTANCE SC ×3 (08:43→16:47)
[2023-07-17] MEDS: CARAFATE SUSPENSION 1 GM PO ×3 (08:55→22:58)
[2023-07-17] MEDS: TYLENOL 1000 MG PO ×3 (08:55→22:58)
[2023-07-17] MEDS: NORVASC 10 MG PO (08:56)
[2023-07-17] MEDS: DAKIN'S SOLUTION 0.125% 1/4 STRENGTH 473 ML TOPICAL (08:56)
[2023-07-17] MEDS: LOW STRENGTH ASPIRIN 81 MG PO (08:56)
[2023-07-17] MEDS: LOPRESSOR 25 MG PO ×2 (08:56→22:59)
[2023-07-17] MEDS: FIRVANQ 125 MG PO ×2 (08:59→22:58)
[2023-07-17] MEDS: NSS (PRESERVATIVE FREE) 10 ML IV (09:10)
[2023-07-17] MEDS: PROTONIX IV 40 MG IV (09:10)
--- NOTE | 2023-07-17 09:12 | W.PN.NEPH.PH ---
Today's Communication / Plan
-
HD tomorrow
Assessment/Plan
-
Assessment:
ESRD
Anemia
Cdiff colitis
Hypoglycemia
Recent epidural/psoas abscess
chronic R heel wound
Plan:
plan for HD tomorrow
Continue antibiotics
pt wants his sister to speak to vascular surgery to help him decide
-
-
Date of Service: July 17, 2023
CC / HPI / ROS
-
Chief Complaint:
ESRD
History of Present Illness:
tolerated HD yesterday
Hgb stable
BP stable
Review of Systems:
no CP/SOB
Labs
-
Labs:
WBC 28.0 10^3/uL (4.8-10.8) H 07/17/23 04:37
RBC 3.09 10^6/uL (4.70-6.10) L 07/17/23 04:37
Hgb 9.0 g/dL (13.0-18.0) L 07/17/23 04:37
Hct 27.6 % (39.0-52.0) L 07/17/23 04:37
Plt Count 585 10^3/uL (130-400) H 07/17/23 04:37
Sodium 136 mmol/L (135-145) 07/17/23 04:37
Potassium 4.4 mmol/L (3.5-5.1) 07/17/23 04:37
Chloride 101 mmol/L (98-107) 07/17/23 04:37
Carbon Dioxide 26 mmol/L (22-30) 07/17/23 04:37
BUN 24 mg/dl (9-20) H 07/17/23 04:37
Creatinine 3.2 mg/dL (0.7-1.3) H 07/17/23 04:37
eGFR 20.56 07/17/23 04:37
Glucose 88 mg/dl (70-99) 07/17/23 04:37
Calcium 8.0 mg/dl (8.4-10.2) L 07/17/23 04:37
Albumin 2.5 g/dl (3.5-5.0) L 07/12/23 05:26
Physical Exam
-
Vital Signs:
Vital Signs
Temp Pulse Resp BP Pulse Ox
98.2 F 89 20 138/82 99
07/17/23 03:53 07/17/23 08:56 07/17/23 06:00 07/17/23 08:56 07/17/23 01:27
Cardiovascular:: Regular rate and rhythm
Respiratory:: Bilateral: Coarse
Lung Excursion:: Normal
Abdomen:: Nontender and Soft
Bowel Sounds:: Normal
Extremity Edema:: None: Bilateral:
--- NOTE | 2023-07-17 09:18 | W.PN.HOSP.TC ---
Today's Communication/Plan
-
see bold
Assessment / Plan
Assessment / Plan
68 M with PMH significant for osteomyelitis/discitis, LUIS ANGEL requiring HD, DM2 and recent admission for encephalopathy and C Diff colitis who presents to ED from [place] for evaluation of hypoglycemic episodes.
Gen: continues to remain NAD, Awake and alert
Eyes: EOMI, PERRLA, no scleral icterus.
Neck: supple.
CV: remains RRR with frequent premature beats, +S1/S2, no m/r/g.
Resp: continues to remain CTAB, no rales, wheezes, or rhonchi.
Abd: +BS, soft, NT, ND
Skin: No rashes.
Neuro: CN 2-12 intact, non-focal.
Psych: Normal mood and affect.
EGD 07/15/23: LA Grade C reflux esophagitis with no bleeding in the middle and lower third of the esophagus. Small hiatal hernia. Normal examined duodenum.
Colonoscopy 07/16/23: Preparation of the colon was fair.
- Non-thrombosed external hemorrhoids found on
perianal exam.
- Diverticulosis in the sigmoid colon and in the
descending colon.
- One 20 mm polyp in the sigmoid colon, removed with a
hot snare. Resected and retrieved. Clip was placed.
Clip stone sawyer: [facility] [facility].
- One 3 mm polyp in the cecum, removed with a cold
snare. Complete resection. Polyp tissue not retrieved.
- Two 4 to 6 mm polyps in the ascending colon, removed
with a cold snare. Resected and retrieved.
- One 3 mm polyp in the descending colon, removed with
a cold snare. Resected and retrieved.
- External and internal hemorrhoids.
Acute blood loss anemia:
-developed during hospitalization
-underlying anemia of chronic disease
-likely due to acute GI bleed exacerbated by Eliquis/Plavix
-s/p 7U pRBCs
-was on PPI gtt, now on IV BID
-EGD without source of bleeding as above
-colonoscopy notable for nonthrombosed external hemorrhoids and diverticulitis in the sigmoid and descending colon
-GI following
-OK to restart Eliquis 07/18/23
DM2 with hypoglycemia:
-a1c on 07/01/23 was 5.9%
-was reason for admission
-due to oral hypoglycemic agents, now stopped
-s/p octreotide and dextrose infusion
-SSI/accuchecks
Right heel wound with bone exposed and osteomyelitis:
-s/p wound care consult
-x-ray suggestive of osteomyelitis
-worsening leukocytosis was likely due to R heel OM
-vascular surgery recommends R BKA, pt currently refusing until he speaks to his outside vascular surgeon
-ID following, cont Unasyn
-c/s psych for capacity eval
-pt says he is 'real close' to deciding on surgery
Other problems:
C. Diff Colitis: cont PO Vanco 125 mg PO BID through 08/14/23 as per ID
Lumbar Osteomyelitis/Discitis: Continue current cefazolin dosing
LUIS ANGEL now Requiring HD: cont HD as per renal
CAD: h/o PAD s/p RLE stenting. Plavix/Eliquis on hold as above for GIB.
RN updated
FULL/SCDs (with GIB)
Anticipated Discharge: > 48 hours
Subjective/Interval History
-
Date of Service: July 17, 2023
Denies CP/SOB.
Objective Data
-
Labs:
Laboratory Results
07/17/23
04:37
WBC 28.0 H
Hgb 9.0 L
Hct 27.6 L
Plt Count 585 H
Sodium 136
Potassium 4.4
Chloride 101
Carbon Dioxide 26
BUN 24 H
Creatinine 3.2 H
Glucose 88
Calcium 8.0 L
Vital Signs:
Vital Signs
Temp Pulse Resp BP Pulse Ox
99.4 F 89 20 138/82 99
07/17/23 07:52 07/17/23 08:56 07/17/23 06:00 07/17/23 08:56 07/17/23 01:27
I&O
07/16/23 07/17/23 07/18/23
06:59 06:59 06:59
Intake Total 480 / 480 600 / 600
Output Total 250 / 250 150 / 150
Balance 230 / 230 450 / 450
--- NOTE | 2023-07-17 11:27 | PTCARENOTE ---
Pt assigned occupied room 324-report attempted to be called to RN -will call back when she is able.
--- NOTE | 2023-07-17 12:15 | CON.MD ---
Addendum entered and electronically signed by Ines Serrano MD 07/17/23 13:04:
nursing told me she had read in the chart that patient had made a suicide attempt when homeless in the past. i asked patient this he told me 'number one i have never been homeless number two i never made a suicide attempt.....'
Original Note:
Consultation - Medical
-
patient seen chart reviewed. patient is a 68 year old man with many medical problems but very pressing is a wound on his right ankle which has failed to heal despite vascular surgery and at this point a bka is being recommended. the patient has had
a hard time making this decision according to hospitalist and this consult was sought to ask the ? of whether he is competent to make medical decisions on his own behalf. the patient explained to me in appropriate detail how he sustained the injury
and his feeling that despite his early efforts to treat the injury it worsened. he understands the role dm has played. he adds that he does not want to blame anyone but he feels the wound may have been on the back burner while other medical
issues were addressed in the past several months while he was hospitalized and residing in nursing facilities. he says he is almost at the point where he will consent to the surgery but he wants to discuss in person w his sister who has medical
issues of her own and will come here tomorrow. he also wanted to consult with his vascular surgeon dr morejon at [facility] whom dr braxton told me she has called. the patient denies depression or anxiety or any hx of having been rx for same. there is
nothing to suggest psychosis. he is not suicidal.
past psych hx none
medical hx see above. many medical comorbidities including but not limited to esrd on dialysis c diff colitios lumbar discitis /osteomyelitis wth hx laminectomy htn niddm anemia ascvd w stent placement hx gi bleed, mssa bacteremia
esophagitis recent acute blood loss colonoscopy yesterday w removal of several polyps
fh denied
substance abuse denied
social friendly relationship w ex . one d one grandd who is the apple of his eye. served eight years in the [employer]. 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 supportive
family including sis and b in law. has + friendships
mse alert ox3 very cooperative and pleasantly interactive. speech and thought process nl no psychosis mood is euthymic no si aver intelligence insight judgment ok
dx adj d/o unspec
recommendations i see nothing today to suggest that this patient is not competent to make medical decisions on his own behalf. he explained to me how he came to be so ill in appropriate understandable laymen's terms and seems to be on the road to
making the correct decision. psych will sign off.
[2023-07-17 12:26] LABS: Glucose - Point of Care 140 mg/dl (70-99)
--- NOTE | 2023-07-17 12:31 | PTCARENOTE ---
Report given to 3W KRYSTA Major. Room in progress. Pt updated.
[2023-07-17] MEDS: CARAFATE SUSPENSION PO (12:36)
--- NOTE | 2023-07-17 14:01 | W.PN.ID1 ---
Date of Service
Date of Service: July 17, 2023
Today's Communication
- cefazolin was temporarily switched to unasyn, course remains through 08/09/23; after amputation plan to switch back to cefazolin
Assessment / Plan
#Necrotic/ischemic right heel chronic wound - progressive
# PAD
- osteomyelitis of the right heel.
- Most likely source of rising leukocytosis
- recommend BKA -I will attempt temporizing medical therapy with unasyn, patient aware that a decision will need to be made in the very near future and in my opinion medical therapy alone is futile; he seems to be contemplating the decision and
states that he will make a decision imminently I expressed that while it is not emergent today, I suspect it will be an emergent decision within days. Left message for his vascular surgeon Dr Ortiz however I have not heard back.
- offloading
#Diarrhea - resolved
Recent diagnosis of C. difficile
- current testing negative.
- continue prophylactic Vanco 125 mg po BID through 08/14/23
#L2-L3 and possibly L3-L4 Discitis, Osteomyelitis
Epidural abscess from L1- sacrum, s/p laminectomy (06/13/2023)
Psoas Abscesses bilaterally
MSSA Bacteremia - cleared
LUIS ANGEL: ATN vs PIGN
- blood cultures no growth
- cefazolin was temporarily switched to unasyn, course remains through 08/09/23; after amputation plan to switch back to cefazolin
- outpatient follow up with patients [facility] physicians following D/C
����������������������������������������������������������
Chief Complaint
-: Leukocytosis and Other (diarrhea; Hx epidural abscess)
Subjective / Review of Systems
afebrile
bp stable
slight improvement in leukocytosis
K normal
refused dressing take down today
Vital Signs / Physical Exam
Vital Signs
Vital Signs
Temp Pulse Resp BP Pulse Ox
98.2 F 114 19 134/67 99
07/17/23 12:08 07/17/23 10:00 07/17/23 10:00 07/17/23 10:00 07/17/23 01:27
Physical Exam
Constitutional: No Acute Distress
Cardiovascular: Regular Rate and S1/S2; Negative Murmur or Rub
Pulmonary: Clear and Symmetric; Negative Wheezes or Rales
Gastrointestinal: Soft, Non Tender, Non Distended and Normal Bowel Sounds
Extremities: Other (refused dressing take down)
Skin: Warm and Dry; Negative Rash or Jaundice
Wound: Other (refused dressing take down today 'they're taking it down too much')
Objective Data
Lab Data
Lab Results
07/17/23 04:37
07/17/23 04:37
PT 18.4 Sec (11.4-14.6) H 07/16/23 08:22
INR 1.52 07/16/23 08:22
Estimated Creat Clear 27 ml/min 07/17/23 04:37
Total Bilirubin 0.5 mg/dl (0.2-1.3) 07/12/23 05:26
AST 16 U/L (17-59) L 07/12/23 05:26
ALT < 10 U/L (0-50) 07/12/23 05:26
Alkaline Phosphatase 207 U/L (38-126) H 07/12/23 05:26
Most recent labs reviewed.
Micro Results:
07/09/23 12:46 C. difficile GDH Antigen & Toxins - Final
Feces/Stool Negative for toxigenic C.difficile
07/10/23 CT a/p: There are bilateral fluid collections in the psoas left greater than right. Most consistent with treated abscesses, forming seromas in a patient with a history of known psoas abscess. No free air. No free fluid or fluid collection.
No focal area of abnormal hemorrhage in the bowel to suggest GI hemorrhage. Diverticulosis. No CT evidence for diverticulitis. The patient's GI bleed may be due to intermittent bleeding from a diverticulum. No bleeding identified on the current
exam. Patient is status post laminectomy, and by report is undergoing treatment for osteomyelitis discitis. Unfortunately there are no prior exams for comparison. There is a small fluid collection in the postoperative bed most consistent with
postoperative change. Mildly prominent lymph nodes in the rabia hepatis and in the pelvis, likely reactive
[2023-07-17] MEDS: UNASYN IV (15:33)
[2023-07-17 16:45] LABS: Glucose - Point of Care 139 mg/dl (70-99)
--- NOTE | 2023-07-17 20:31 | W.PN.GI.CBS2 ---
Today's Communication / Plan
-
Continue PPI bid
added carafate
Assessment / Plan
-
Pt is a 68yo with hx LUIS ANGEL resulting in ESRD on DH, chronic anemia, DM, PAD with chronic heal wound with osteo, RLE angio and stent on chronic Eliquis, ASA, and Plavix(managed with Dr. Ortiz -vascular at [facility]), psoas abscess b/l, MSSA
bacteremia, epidural abscess with salcedo (06/12), chronic pain, and GERD. He was noted + for C-diff 06/28 with admission. He is now noted with worsening of anemia with burgundy stool and also noted reported hematuria last admission. Per hospital
records chronic anemia hbb 7-8 range since early June now 5-6 range. BUN 51 slightly higher than prior 20-40.
Impression
-Worsening chronic anemia
no prior EGD/colon
Hbg on admission 6
-black/burgundy stools
-recent c-diff on vanco
-ESRD on HD
-recent report hematuria
-DM
-PAD/ LE chronic wound prior LE stenting on ASA, Eliquis , Plavix managed at [facility] vascular Dr. Oritz
-MSSA bacteremia
-epidural abscess with lami 06/12
-GERD
Plan
-Status post EGD and colonoscopy EGD with significant reflux esophagitis and colonoscopy showed diverticulosis and colon polyps but was a suboptimal bowel prep needs repeat colonoscopy in 2 years and repeat endoscopy in 3 to 6 months to check for
healing will need outpatient capsule endoscopy since no obvious source of active bleeding was noted could be related to the esophagitis or diverticular bleed but will also need to rule out small bowel angioectasias.
Will sign off and will be available as needed follow-up in GI office for the capsule endoscopy after DC and when stable
Subjective
Subjective
Date of Service: July 17, 2023
No rectal bleeding or melena, hemoglobin stable at 9 received a total of 7 units of packed red blood cells this admission
Objective
Data Reviewed
Laboratory Data:
Laboratory Results
07/17/23 04:37
07/17/23 04:37
Laboratory Results
PT 18.4 Sec (11.4-14.6) H 07/16/23 08:22
INR 1.52 07/16/23 08:22
Magnesium 1.9 mg/dl (1.6-2.3) 07/11/23 04:40
Total Bilirubin 0.5 mg/dl (0.2-1.3) 07/12/23 05:26
AST 16 U/L (17-59) L 07/12/23 05:26
ALT < 10 U/L (0-50) 07/12/23 05:26
Alkaline Phosphatase 207 U/L (38-126) H 07/12/23 05:26
Vital Signs and I&O:
Vital Signs
Temp Pulse Resp BP Pulse Ox
98.6 F 78 16 120/58 97
07/17/23 15:37 07/17/23 15:37 07/17/23 15:37 07/17/23 15:37 07/17/23 15:37
I&O
07/16/23 07/17/23 07/18/23
06:59 06:59 06:59
Intake Total 480 / 480 600 / 600 118 / 118
Output Total 250 / 250 150 / 150 100 / 100
Balance 230 / 230 450 / 450 18 / 18
Physical Exam
Physical Exam
Cardiology: Normal Sinus Rhythm
Pulmonary: Clear
GI: Soft, Non Distended, Non Tender and Normal Bowel Sounds
[2023-07-17 21:28] LABS: Glucose - Point of Care 110 mg/dl (70-99)
[2023-07-17] MEDS: PROTONIX 40 MG PO (22:58)
[2023-07-18 07:24] LABS: Hematocrit 25.6 % (39.0-52.0); Hemoglobin 8.5 g/dL (13.0-18.0); Mean Corp Hgb Conc. 33.2 g/dL (33.0-37.0); Mean Corpuscular Hgb 29.3 pg (27.0-31.0); Mean Corpuscular Volume 88.3 fL (80.0-94.0); Mean Platelet Volume 9.4 fL (7.4-10.4); Platelet Count 564 10^3/uL (130-400); Red Cell Dist. Width 16.4 % (11.5-14.5)
[2023-07-18 07:38] LABS: Glucose - Point of Care 94 mg/dl (70-99)
[2023-07-18 07:41] VITALS: BP 137/76
[2023-07-18] MEDS: NOVOLOG FLEXPEN-LOW RESISTANCE SC ×2 (07:44→16:15)
[2023-07-18 07:51] LABS: Blood Urea Nitrogen 34 mg/dl (9-20); Calcium 7.8 mg/dl (8.4-10.2); Carbon Dioxide 23 mmol/L (22-30); Chloride 100 mmol/L (98-107); Estimated Creatinine Clearance 19 ml/min; Glucose 74 mg/dl (70-99); Potassium 4.3 mmol/L (3.5-5.1); Sodium 135 mmol/L (135-145)
[2023-07-18] MEDS: LOW STRENGTH ASPIRIN 81 MG PO (08:06)
[2023-07-18] MEDS: TYLENOL 1000 MG PO ×3 (08:06→21:28)
[2023-07-18] MEDS: PROTONIX 40 MG PO ×2 (08:06→21:28)
[2023-07-18] MEDS: FIRVANQ 125 MG PO ×2 (08:06→21:27)
[2023-07-18] MEDS: CARAFATE SUSPENSION 1 GM PO ×4 (08:06→21:28)
[2023-07-18] MEDS: DAKIN'S SOLUTION 0.125% 1/4 STRENGTH 473 ML TOPICAL (08:07)
[2023-07-18 08:11] VITALS: BMI 23.6
[2023-07-18] MEDS: NORVASC PO (09:06)
[2023-07-18] MEDS: LOPRESSOR PO (09:06)
--- NOTE | 2023-07-18 09:18 | W.PN.HOSP.TC ---
Today's Communication/Plan
-
see bold
Assessment / Plan
Assessment / Plan
68 M with PMH significant for osteomyelitis/discitis, LUIS ANGEL requiring HD, DM2 and recent admission for encephalopathy and C Diff colitis who presents to ED from [place] for evaluation of hypoglycemic episodes.
Gen: NAD, Awake and alert
Eyes: remains EOMI, PERRLA, no scleral icterus.
Neck: supple.
CV: RRR, +S1/S2, no m/r/g.
Resp: CTAB, no rales, wheezes, or rhonchi.
Skin: No rashes.
Neuro: remains CN 2-12 intact, non-focal.
Psych: Normal mood and affect.
EGD 07/15/23: LA Grade C reflux esophagitis with no bleeding in the middle and lower third of the esophagus. Small hiatal hernia. Normal examined duodenum.
Colonoscopy 07/16/23: Preparation of the colon was fair.
- Non-thrombosed external hemorrhoids found on
perianal exam.
- Diverticulosis in the sigmoid colon and in the
descending colon.
- One 20 mm polyp in the sigmoid colon, removed with a
hot snare. Resected and retrieved. Clip was placed.
Clip epic cadence specialists: [employer].
- One 3 mm polyp in the cecum, removed with a cold
snare. Complete resection. Polyp tissue not retrieved.
- Two 4 to 6 mm polyps in the ascending colon, removed
with a cold snare. Resected and retrieved.
- One 3 mm polyp in the descending colon, removed with
a cold snare. Resected and retrieved.
- External and internal hemorrhoids.
Acute blood loss anemia:
-developed during hospitalization
-underlying anemia of chronic disease
-likely due to acute GI bleed exacerbated by Eliquis/Plavix
-s/p 7U pRBCs
-was on PPI gtt, now on PO BID, carafate started
-EGD without source of bleeding as above
-colonoscopy notable for nonthrombosed external hemorrhoids and diverticulitis in the sigmoid and descending colon
-GI following
-OK to restart Eliquis 07/18/23 as per GI. Will time this based on when BKA is scheduled
DM2 with hypoglycemia:
-a1c on 07/01/23 was 5.9%
-was reason for admission
-due to oral hypoglycemic agents, now stopped
-s/p octreotide and dextrose infusion
-SSI/accuchecks
Right heel wound with bone exposed and osteomyelitis:
-s/p wound care consult
-x-ray suggestive of osteomyelitis
-worsening leukocytosis was likely due to R heel OM
-vascular surgery recommends R BKA, pt now agreeable
-ID following, cont Unasyn
Other problems:
C. Diff Colitis: cont PO Vanco 125 mg PO BID through 08/14/23 as per ID
Lumbar Osteomyelitis/Discitis: Continue current cefazolin dosing
LUIS ANGEL now Requiring HD: cont HD as per renal
CAD: h/o PAD s/p RLE stenting. Plavix/Eliquis have been on hold as above for GIB.
RN updated
FULL/heparin (see above regarding Eliquis)
Anticipated Discharge: > 48 hours
Subjective/Interval History
-
Date of Service: July 18, 2023
No new complaints.
Objective Data
-
Labs:
Laboratory Results
07/18/23
06:28
WBC 24.0 H
Hgb 8.5 L
Hct 25.6 L
Plt Count 564 H
Sodium 135
Potassium 4.3
Chloride 100
Carbon Dioxide 23
BUN 34 H
Creatinine 4.6 H*
Glucose 74
Calcium 7.8 L
Vital Signs:
Vital Signs
Temp Pulse Resp BP Pulse Ox
98.9 F 85 18 137/76 97
07/18/23 07:41 07/18/23 07:41 07/18/23 07:41 07/18/23 07:41 07/18/23 07:41
I&O
07/17/23 07/18/23 07/19/23
06:59 06:59 06:59
Intake Total 600 / 600 118 / 118
Output Total 150 / 150 100 / 100
Balance 450 / 450
[2023-07-18] MEDS: DILAUDID 0.25 MG IV ×2 (09:41→21:22)
--- NOTE | 2023-07-18 10:48 | PTOTSP ---
SPOKE WITH RN. PATIENT CONTACTED BEDSIDE, REFUSING THERAPY STATING 'I FEEL LIKE SH*T' ASKING TO SPEAK WITH HIS RN. RN MADE AWARE. PATIENT HAS REFUSED THERAPY X 3, WILL DISCHARGE FROM P.T. AT THIS TIME. WILL AWAIT POST-OP ORDERS PATIENT NOW
AGREEABLE TO RIGHT BKA.
--- NOTE | 2023-07-18 11:14 | W.PN.ID1 ---
Date of Service
Date of Service: July 18, 2023
Today's Communication
- cefazolin was temporarily switched to unasyn, course remains through 08/09/23; after amputation plan to switch back to cefazolin
Assessment / Plan
#Necrotic/ischemic right heel chronic wound - progressive
# PAD
- osteomyelitis of the right heel.
- Most likely source of leukocytosis
- recommend BKA - spoke with his [place] vascular surgeon Dr Ortiz who is in agreement and will try to call him; she shared that he continued to walk on the foot despite her advise to offload
- continue unasyn - some interval improvement in leukocytosis however does not change the recommendation for amputation
- offloading
#Diarrhea - resolved
Recent diagnosis of C. difficile
- current testing negative.
- continue prophylactic Vanco 125 mg po BID through 08/14/23
#L2-L3 and possibly L3-L4 Discitis, Osteomyelitis
Epidural abscess from L1- sacrum, s/p laminectomy (06/13/2023)
Psoas Abscesses bilaterally
MSSA Bacteremia - cleared
LUIS ANGEL: ATN vs PIGN
- blood cultures no growth
- cefazolin was temporarily switched to unasyn, course remains through 08/09/23; after amputation plan to switch back to cefazolin
- outpatient follow up with patients [facility] physicians following D/C
����������������������������������������������������������
Chief Complaint
-: Leukocytosis and Other (diarrhea; Hx epidural abscess)
Subjective / Review of Systems
afebrile
bp stable
persistent leukocytosis with mild improvement, persistent thrombocytosis
K remains normal
proceeding to bka
Vital Signs / Physical Exam
Vital Signs
Vital Signs
Temp Pulse Resp BP Pulse Ox
98.9 F 85 18 137/76 97
07/18/23 07:41 07/18/23 07:41 07/18/23 07:41 07/18/23 07:41 07/18/23 07:41
Physical Exam
Constitutional: No Acute Distress
Cardiovascular: Regular Rate and S1/S2; Negative Murmur or Rub
Pulmonary: Clear and Symmetric; Negative Wheezes or Rales
Gastrointestinal: Soft, Non Tender, Non Distended and Normal Bowel Sounds
Skin: Warm and Dry; Negative Rash or Jaundice
Wound: Other (dressing take down deferred)
Objective Data
Lab Data
Lab Results
07/18/23 06:28
07/18/23 06:28
PT 18.4 Sec (11.4-14.6) H 07/16/23 08:22
INR 1.52 07/16/23 08:22
Estimated Creat Clear 19 ml/min 07/18/23 06:28
Total Bilirubin 0.5 mg/dl (0.2-1.3) 07/12/23 05:26
AST 16 U/L (17-59) L 07/12/23 05:26
ALT < 10 U/L (0-50) 07/12/23 05:26
Alkaline Phosphatase 207 U/L (38-126) H 07/12/23 05:26
Most recent labs reviewed.
Micro Results:
07/09/23 12:46 C. difficile GDH Antigen & Toxins - Final
Feces/Stool Negative for toxigenic C.difficile
07/10/23 CT a/p: There are bilateral fluid collections in the psoas left greater than right. Most consistent with treated abscesses, forming seromas in a patient with a history of known psoas abscess. No free air. No free fluid or fluid collection.
No focal area of abnormal hemorrhage in the bowel to suggest GI hemorrhage. Diverticulosis. No CT evidence for diverticulitis. The patient's GI bleed may be due to intermittent bleeding from a diverticulum. No bleeding identified on the current
exam. Patient is status post laminectomy, and by report is undergoing treatment for osteomyelitis discitis. Unfortunately there are no prior exams for comparison. There is a small fluid collection in the postoperative bed most consistent with
postoperative change. Mildly prominent lymph nodes in the rabia hepatis and in the pelvis, likely reactive
Care Review
Plan reviewed with: Physician (Dr Ortiz - vascular)
[2023-07-18 11:32] LABS: Glucose - Point of Care 159 mg/dl (70-99)
[2023-07-18] MEDS: NOVOLOG FLEXPEN-LOW RESISTANCE 1 UNITS SC (11:33)
[2023-07-18] MEDS: RETACRIT 6000 UNITS IV (13:55)
--- NOTE | 2023-07-18 14:32 | W.PN.NEPH.HD ---
Assessment
-
resting comfortably on HD
Progress Note - Hemodialysis
-
Date of Service: July 18, 2023
Duration: 30 minutes and 3 hours
Potassium Bath: 3
Calcium Bath: 2.5
Opti-Dialyzer: 160
Ultrafiltration: Other
Blood Flow: 400
Dialysate Flow: 600
[2023-07-18 15:25] VITALS: BP 120/57
--- NOTE | 2023-07-18 15:57 | CM ---
Case management following for d/c planning
Chart reviewed
Pt from [facility]
Vascular surg recommending R BKA
Remains on antibiotics
Will need updates PT/OT notes
Plan - [facility] when medically stable
[2023-07-18] MEDS: UNASYN IV (16:13)
[2023-07-18] MEDS: HEPARIN 5000 UNITS SC (16:14)
[2023-07-18 16:40] LABS: Glucose - Point of Care 111 mg/dl (70-99)
[2023-07-18 21:27] LABS: Glucose - Point of Care 173 mg/dl (70-99)
[2023-07-18] MEDS: LOPRESSOR 25 MG PO (21:28)
[2023-07-18] MEDS: PEPCID 20 MG PO (21:28)
[2023-07-18 23:00] VITALS: BP 133/71
[2023-07-19] MEDS: HEPARIN 5000 UNITS SC ×4 (00:28→23:57)
[2023-07-19] MEDS: DILAUDID 0.25 MG IV ×5 (00:31→22:38)
[2023-07-19 05:57] LABS: Hematocrit 25.1 % (39.0-52.0); Hemoglobin 8.1 g/dL (13.0-18.0); Mean Corp Hgb Conc. 32.3 g/dL (33.0-37.0); Mean Corpuscular Hgb 28.8 pg (27.0-31.0); Mean Corpuscular Volume 89.3 fL (80.0-94.0); Mean Platelet Volume 9.3 fL (7.4-10.4); Platelet Count 577 10^3/uL (130-400); Red Blood Cell Count 2.81 10^6/uL (4.70-6.10); Red Cell Dist. Width 16.1 % (11.5-14.5)
[2023-07-19 06:21] LABS: Blood Urea Nitrogen 20 mg/dl (9-20); Carbon Dioxide 25 mmol/L (22-30); Chloride 102 mmol/L (98-107); Estimated Creatinine Clearance 26 ml/min; Glucose 102 mg/dl (70-99); Potassium 3.6 mmol/L (3.5-5.1); Sodium 135 mmol/L (135-145); eGFR 19.81
[2023-07-19 07:00] VITALS: BP 131/71
[2023-07-19 08:00] LABS: Glucose - Point of Care 111 mg/dl (70-99)
[2023-07-19] MEDS: NOVOLOG FLEXPEN-LOW RESISTANCE SC ×2 (08:37→17:37)
[2023-07-19] MEDS: FIRVANQ 125 MG PO ×2 (08:38→20:12)
[2023-07-19] MEDS: LOW STRENGTH ASPIRIN 81 MG PO (08:38)
[2023-07-19] MEDS: NORVASC 10 MG PO (08:39)
[2023-07-19] MEDS: TYLENOL 1000 MG PO ×3 (08:39→20:11)
[2023-07-19] MEDS: PROTONIX 40 MG PO ×2 (08:39→20:12)
[2023-07-19] MEDS: DAKIN'S SOLUTION 0.125% 1/4 STRENGTH 473 ML TOPICAL (08:40)
[2023-07-19] MEDS: LOPRESSOR 25 MG PO ×2 (08:45→20:11)
[2023-07-19] MEDS: CARAFATE SUSPENSION 1 GM PO ×4 (08:45→20:12)
--- NOTE | 2023-07-19 10:36 | W.PN.HOSP.TC ---
Today's Communication/Plan
-
see bold
Assessment / Plan
Assessment / Plan
68 M with PMH significant for osteomyelitis/discitis, LUIS ANGEL requiring HD, DM2 and recent admission for encephalopathy and C Diff colitis who presents to ED from [place] for evaluation of hypoglycemic episodes.
Gen: NAD, Awake and alert
Eyes: continues to remain EOMI, PERRLA, no scleral icterus.
Neck: supple.
CV: RRR, +S1/S2, no m/r/g.
Resp: CTAB, no rales, wheezes, or rhonchi.
Skin: No rashes.
Neuro: continues to remain CN 2-12 intact, non-focal.
Psych: Normal mood and affect.
EGD 07/15/23: LA Grade C reflux esophagitis with no bleeding in the middle and lower third of the esophagus. Small hiatal hernia. Normal examined duodenum.
Colonoscopy 07/16/23: Preparation of the colon was fair.
- Non-thrombosed external hemorrhoids found on
perianal exam.
- Diverticulosis in the sigmoid colon and in the
descending colon.
- One 20 mm polyp in the sigmoid colon, removed with a
hot snare. Resected and retrieved. Clip was placed.
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
- One 3 mm polyp in the cecum, removed with a cold
snare. Complete resection. Polyp tissue not retrieved.
- Two 4 to 6 mm polyps in the ascending colon, removed
with a cold snare. Resected and retrieved.
- One 3 mm polyp in the descending colon, removed with
a cold snare. Resected and retrieved.
- External and internal hemorrhoids.
Acute blood loss anemia:
-developed during hospitalization
-underlying anemia of chronic disease
-likely due to acute GI bleed exacerbated by Eliquis/Plavix
-s/p 7U pRBCs
-was on PPI gtt, now on PO BID, carafate started
-EGD without source of bleeding as above
-colonoscopy notable for nonthrombosed external hemorrhoids and diverticulitis in the sigmoid and descending colon
-GI following
-OK to restart Eliquis 07/18/23 as per GI but holding Eliquis for BKA 07/21/23
DM2 with hypoglycemia:
-a1c on 07/01/23 was 5.9%
-was reason for admission
-due to oral hypoglycemic agents, now stopped
-s/p octreotide and dextrose infusion
-SSI/accuchecks
Right heel wound with bone exposed and osteomyelitis:
-s/p wound care consult
-x-ray suggestive of osteomyelitis
-worsening leukocytosis was likely due to R heel OM
-for R BKA 07/21/23
-ID following, cont Unasyn
Other problems:
C. Diff Colitis: cont PO Vanco 125 mg PO BID through 08/14/23 as per ID
Lumbar Osteomyelitis/Discitis: Continue current cefazolin dosing
LUIS ANGEL now Requiring HD: cont HD as per renal
CAD: h/o PAD s/p RLE stenting. Plavix/Eliquis have been on hold as above for GIB.
RN updated
FULL/heparin (see above regarding Eliquis)
Anticipated Discharge: > 48 hours
Subjective/Interval History
-
Date of Service: July 19, 2023
No new complaints.
Objective Data
-
Labs:
Laboratory Results
07/19/23
05:10
WBC 20.0 H
Hgb 8.1 L
Hct 25.1 L
Plt Count 577 H
Sodium 135
Potassium 3.6
Chloride 102
Carbon Dioxide 25
BUN 20
Creatinine 3.3 H
Glucose 102 H
Calcium 8.0 L
Vital Signs:
Vital Signs
Temp Pulse Resp BP Pulse Ox
98.2 F 92 20 131/71 94
07/19/23 07:00 07/19/23 08:39 07/19/23 07:00 07/19/23 08:39 07/19/23 07:00
I&O
07/18/23 07/19/23 07/20/23
06:59 06:59 06:59
Intake Total 118 / 118 1560 / 1560
Output Total 100 / 100 300 / 300
Balance 1260 / 1260
--- NOTE | 2023-07-19 12:39 | W.PN.ID1 ---
Date of Service
Date of Service: July 19, 2023
Today's Communication
Continue abx.
Assessment / Plan
#Necrotic/ischemic right heel chronic wound - progressive
# PAD
- osteomyelitis of the right heel.
- Most likely source of leukocytosis
- await BKA
- continue unasyn - some interval improvement in leukocytosis however does not change the recommendation for amputation
- offloading
#Diarrhea - resolved
Recent diagnosis of C. difficile
- current testing negative.
- continue prophylactic Vanco 125 mg po BID through 08/14/23
#L2-L3 and possibly L3-L4 Discitis, Osteomyelitis
Epidural abscess from L1- sacrum, s/p laminectomy (06/13/2023)
Psoas Abscesses bilaterally
MSSA Bacteremia - cleared
LUIS ANGEL: ATN vs PIGN
- blood cultures no growth
- cefazolin was temporarily switched to unasyn, course remains through 08/09/23; after amputation plan to switch back to cefazolin
- outpatient follow up with patients [facility] physicians following D/C
����������������������������������������������������������
Chief Complaint
-: Leukocytosis and Other (diarrhea; Hx epidural abscess)
Subjective / Review of Systems
Review of Systems: No Fever and No Chills
Vital Signs / Physical Exam
Vital Signs
Vital Signs
Temp Pulse Resp BP Pulse Ox
98.2 F 92 20 131/71 94
07/19/23 07:00 07/19/23 08:39 07/19/23 07:00 07/19/23 08:39 07/19/23 07:00
Physical Exam
Constitutional: No Acute Distress, Comfortable, Chronically Ill and Non-toxic
Eyes: Sclera Anicteric
Cardiovascular: S1/S2; Negative S3/S4
Pulmonary: Non Labored
Gastrointestinal: Soft and Non Distended
Wound: Other (Right foot dressed. No erythema extending up leg.)
Neurological: Awake and Alert
Psychological: Calm
Objective Data
Lab Data
Lab Results
07/19/23 05:10
07/19/23 05:10
PT 18.4 Sec (11.4-14.6) H 07/16/23 08:22
INR 1.52 07/16/23 08:22
Estimated Creat Clear 26 ml/min 07/19/23 05:10
Total Bilirubin 0.5 mg/dl (0.2-1.3) 07/12/23 05:26
AST 16 U/L (17-59) L 07/12/23 05:26
ALT < 10 U/L (0-50) 07/12/23 05:26
Alkaline Phosphatase 207 U/L (38-126) H 07/12/23 05:26
Most recent labs reviewed.
Micro Results:
07/09/23 12:46 C. difficile GDH Antigen & Toxins - Final
Feces/Stool Negative for toxigenic C.difficile
07/10/23 CT a/p: There are bilateral fluid collections in the psoas left greater than right. Most consistent with treated abscesses, forming seromas in a patient with a history of known psoas abscess. No free air. No free fluid or fluid collection.
No focal area of abnormal hemorrhage in the bowel to suggest GI hemorrhage. Diverticulosis. No CT evidence for diverticulitis. The patient's GI bleed may be due to intermittent bleeding from a diverticulum. No bleeding identified on the current
exam. Patient is status post laminectomy, and by report is undergoing treatment for osteomyelitis discitis. Unfortunately there are no prior exams for comparison. There is a small fluid collection in the postoperative bed most consistent with
postoperative change. Mildly prominent lymph nodes in the rabia hepatis and in the pelvis, likely reactive
[2023-07-19 12:41] LABS: Glucose - Point of Care 180 mg/dl (70-99)
[2023-07-19] MEDS: NOVOLOG FLEXPEN-LOW RESISTANCE 1 UNITS SC (13:55)
[2023-07-19 15:00] VITALS: BP 126/38
[2023-07-19] MEDS: UNASYN IV (16:48)
[2023-07-19 17:11] LABS: Glucose - Point of Care 132 mg/dl (70-99)
[2023-07-19 19:00] VITALS: BP 134/64
[2023-07-19 21:31] LABS: Glucose - Point of Care 132 mg/dl (70-99)
[2023-07-19 23:00] VITALS: BP 125/62
[2023-07-20 06:00] VITALS: BMI 23.5
[2023-07-20 07:00] VITALS: BP 132/75
[2023-07-20 07:14] LABS: Hematocrit 25.7 % (39.0-52.0); Hemoglobin 8.5 g/dL (13.0-18.0); Mean Corp Hgb Conc. 33.1 g/dL (33.0-37.0); Mean Corpuscular Hgb 29.4 pg (27.0-31.0); Mean Corpuscular Volume 88.9 fL (80.0-94.0); Mean Platelet Volume 9.3 fL (7.4-10.4); Platelet Count 601 10^3/uL (130-400); Red Blood Cell Count 2.89 10^6/uL (4.70-6.10); Red Cell Dist. Width 16.3 % (11.5-14.5); White Blood Cell Count 20.7 10^3/uL (4.8-10.8)
[2023-07-20 07:51] LABS: Glucose - Point of Care 100 mg/dl (70-99)
[2023-07-20] MEDS: TYLENOL 1000 MG PO ×3 (07:57→21:19)
[2023-07-20] MEDS: CARAFATE SUSPENSION 1 GM PO ×4 (07:57→21:19)
[2023-07-20] MEDS: NOVOLOG FLEXPEN-LOW RESISTANCE SC ×3 (07:57→16:49)
[2023-07-20] MEDS: PROTONIX 40 MG PO ×2 (07:57→21:10)
[2023-07-20] MEDS: LOW STRENGTH ASPIRIN 81 MG PO (07:57)
[2023-07-20] MEDS: NORVASC 10 MG PO (07:58)
[2023-07-20] MEDS: HEPARIN 5000 UNITS SC ×3 (07:58→23:48)
[2023-07-20] MEDS: LOPRESSOR 25 MG PO ×2 (07:58→21:15)
[2023-07-20 08:01] LABS: Blood Urea Nitrogen 32 mg/dl (9-20); Calcium 7.9 mg/dl (8.4-10.2); Carbon Dioxide 27 mmol/L (22-30); Chloride 99 mmol/L (98-107); Estimated Creatinine Clearance 19 ml/min; Glucose 82 mg/dl (70-99); Potassium 3.9 mmol/L (3.5-5.1); Sodium 136 mmol/L (135-145)
[2023-07-20] MEDS: FIRVANQ 125 MG PO ×2 (08:01→21:11)
[2023-07-20] MEDS: DILAUDID 0.25 MG IV ×2 (08:01→23:49)
[2023-07-20] MEDS: DAKIN'S SOLUTION 0.125% 1/4 STRENGTH 473 ML TOPICAL (08:04)
--- NOTE | 2023-07-20 08:05 | W.PN.HOSP.TC ---
Today's Communication/Plan
-
OR tomorrow
Assessment / Plan
Assessment / Plan
68 M with PMH significant for osteomyelitis/discitis, LUIS ANGEL requiring HD, DM2 and recent admission for encephalopathy and C Diff colitis who presents to ED from [place] for evaluation of hypoglycemic episodes.
Gen: NAD, Awake and alert, NCAT
Eyes: EOMI, PERRLA, no scleral icterus.
Neck: supple.
CV: RRR with frequent premature beats, +S1/S2, no m/r/g.
Resp: CTAB anteriorly, no rales, wheezes, or rhonchi.
Skin: No rashes.
Neuro: CN 2-12 intact, non-focal.
Psych: Normal mood and affect.
EGD 07/15/23: LA Grade C reflux esophagitis with no bleeding in the middle and lower third of the esophagus. Small hiatal hernia. Normal examined duodenum.
Colonoscopy 07/16/23: Preparation of the colon was fair.
- Non-thrombosed external hemorrhoids found on
perianal exam.
- Diverticulosis in the sigmoid colon and in the
descending colon.
- One 20 mm polyp in the sigmoid colon, removed with a
hot snare. Resected and retrieved. Clip was placed.
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
- One 3 mm polyp in the cecum, removed with a cold
snare. Complete resection. Polyp tissue not retrieved.
- Two 4 to 6 mm polyps in the ascending colon, removed
with a cold snare. Resected and retrieved.
- One 3 mm polyp in the descending colon, removed with
a cold snare. Resected and retrieved.
- External and internal hemorrhoids.
Acute blood loss anemia:
-developed during hospitalization
-underlying anemia of chronic disease
-likely due to acute GI bleed exacerbated by Eliquis/Plavix
-s/p 7U pRBCs
-was on PPI gtt, now on PO BID, carafate started
-EGD without source of bleeding as above
-colonoscopy notable for nonthrombosed external hemorrhoids and diverticulitis in the sigmoid and descending colon
-GI following
-OK to restart Eliquis 07/18/23 as per GI but holding Eliquis for BKA 07/21/23
DM2 with hypoglycemia:
-a1c on 07/01/23 was 5.9%
-was reason for admission
-due to oral hypoglycemic agents, now stopped
-s/p octreotide and dextrose infusion
-SSI/accuchecks
Right heel wound with bone exposed and osteomyelitis:
-s/p wound care consult
-x-ray suggestive of osteomyelitis
-worsening leukocytosis was likely due to R heel OM
-for R BKA 07/21/23
-ID following, cont Unasyn
Other problems:
C. Diff Colitis: cont PO Vanco 125 mg PO BID through 08/14/23 as per ID
Lumbar Osteomyelitis/Discitis: Continue current cefazolin dosing
LUIS ANGEL now Requiring HD: cont HD as per renal
CAD: h/o PAD s/p RLE stenting. Plavix/Eliquis have been on hold as above for GIB. Plan to restart after surgery.
RN updated
FULL/heparin (see above regarding Eliquis)
Anticipated Discharge: > 48 hours
Subjective/Interval History
-
Date of Service: July 20, 2023
No new complaints.
Objective Data
-
Labs:
Laboratory Results
07/20/23
06:14
WBC 20.7 H
Hgb 8.5 L
Hct 25.7 L
Plt Count 601 H
Sodium 136
Potassium 3.9
Chloride 99
Carbon Dioxide 27
BUN 32 H
Creatinine 4.6 H*
Glucose 82
Calcium 7.9 L
Vital Signs:
Vital Signs
Temp Pulse Resp BP Pulse Ox
98.5 F 78 16 125/62 93
07/19/23 23:00 07/19/23 23:00 07/19/23 23:00 07/19/23 23:00 07/19/23 23:00
I&O
07/19/23 07/20/23 07/21/23
06:59 06:59 06:59
Intake Total 1560 / 1560 2130 / 2130
Output Total 300 / 300 200 / 200
Balance 1260 / 1260 1929 / 1929
[2023-07-20 11:58] LABS: Glucose - Point of Care 131 mg/dl (70-99)
--- NOTE | 2023-07-20 12:38 | W.PN.NEPH.PH ---
Today's Communication / Plan
-
HD tomorrow
Assessment/Plan
-
Assessment:
ESRD
Anemia
Cdiff colitis
Hypoglycemia
Recent epidural/psoas abscess
chronic R heel wound
Plan:
plan for HD tomorrow prior to BKA
no further GIB
Continue antibiotics
-
-
Date of Service: July 20, 2023
CC / HPI / ROS
-
Chief Complaint:
ESRD
History of Present Illness:
tolerated HD Friday
Hgb stable
BP stable
Review of Systems:
no CP/SOB
Labs
-
Labs:
WBC 20.7 10^3/uL (4.8-10.8) H 07/20/23 06:14
RBC 2.89 10^6/uL (4.70-6.10) L 07/20/23 06:14
Hgb 8.5 g/dL (13.0-18.0) L 07/20/23 06:14
Hct 25.7 % (39.0-52.0) L 07/20/23 06:14
Plt Count 601 10^3/uL (130-400) H 07/20/23 06:14
Sodium 136 mmol/L (135-145) 07/20/23 06:14
Potassium 3.9 mmol/L (3.5-5.1) 07/20/23 06:14
Chloride 99 mmol/L (98-107) 07/20/23 06:14
Carbon Dioxide 27 mmol/L (22-30) 07/20/23 06:14
BUN 32 mg/dl (9-20) H 07/20/23 06:14
Creatinine 4.6 mg/dL (0.7-1.3) H* 07/20/23 06:14
eGFR 13.30 07/20/23 06:14
Glucose 82 mg/dl (70-99) 07/20/23 06:14
Calcium 7.9 mg/dl (8.4-10.2) L 07/20/23 06:14
Albumin 2.5 g/dl (3.5-5.0) L 07/12/23 05:26
Physical Exam
-
Vital Signs:
Vital Signs
Temp Pulse Resp BP Pulse Ox
98.6 F 96 18 132/75 96
07/20/23 07:00 07/20/23 07:00 07/20/23 07:00 07/20/23 07:00 07/20/23 07:00
Cardiovascular:: Regular rate and rhythm
Respiratory:: Bilateral: Coarse
Lung Excursion:: Normal
Abdomen:: Nontender and Soft
Bowel Sounds:: Normal
Extremity Edema:: None: Bilateral:
Mccloud Catheter: No
[2023-07-20 15:00] VITALS: BP 122/53
[2023-07-20] MEDS: UNASYN IV (16:44)
[2023-07-20 16:49] LABS: Glucose - Point of Care 131 mg/dl (70-99)
[2023-07-20] MEDS: PEPCID 20 MG PO (21:19)
[2023-07-20 21:54] LABS: Glucose - Point of Care 117 mg/dl (70-99)
[2023-07-20 23:00] VITALS: BP 121/64
[2023-07-20] MEDS: TUMS 1 TABLET PO (23:48)
[2023-07-21] MEDS: DILAUDID 0.25 MG IV ×4 (04:07→21:10)
[2023-07-21] MEDS: PERIDEX 0.12% ORAL RINSE 15 ML PO (06:30)
[2023-07-21] MEDS: BACTROBAN 2% OINTMENT 1 APPLIC NASAL (06:31)
[2023-07-21 06:39] LABS: Glucose - Point of Care 92 mg/dl (70-99)
[2023-07-21 06:53] LABS: INR 1.24; PT 15.4 Sec (11.4-14.6)
[2023-07-21 06:55] LABS: APTT 61.7 Sec (23.4-35.0)
[2023-07-21 07:00] LABS: Hematocrit 24.9 % (39.0-52.0); Mean Corp Hgb Conc. 32.1 g/dL (33.0-37.0); Mean Corpuscular Hgb 28.7 pg (27.0-31.0); Mean Corpuscular Volume 89.2 fL (80.0-94.0); Mean Platelet Volume 9.4 fL (7.4-10.4); Platelet Count 579 10^3/uL (130-400); Red Blood Cell Count 2.79 10^6/uL (4.70-6.10); Red Cell Dist. Width 16.2 % (11.5-14.5); White Blood Cell Count 18.9 10^3/uL (4.8-10.8)
[2023-07-21 07:15] VITALS: BP 146/78
[2023-07-21 07:37] LABS: Blood Urea Nitrogen 44 mg/dl (9-20); Calcium 8.2 mg/dl (8.4-10.2); Carbon Dioxide 23 mmol/L (22-30); Chloride 98 mmol/L (98-107); Estimated Creatinine Clearance 15 ml/min; Glucose 68 mg/dl (70-99); Potassium 3.9 mmol/L (3.5-5.1); Sodium 133 mmol/L (135-145); eGFR 10.28
[2023-07-21] MEDS: CARAFATE SUSPENSION 1 GM PO ×3 (08:00→21:09)
[2023-07-21] MEDS: HEPARIN SC (08:00)
[2023-07-21] MEDS: LOPRESSOR PO (08:01)
[2023-07-21] MEDS: TYLENOL 1000 MG PO ×3 (08:01→21:09)
[2023-07-21] MEDS: FIRVANQ 125 MG PO ×2 (08:01→21:09)
[2023-07-21] MEDS: LOW STRENGTH ASPIRIN PO (08:02)
[2023-07-21] MEDS: NORVASC PO (08:02)
[2023-07-21] MEDS: PROTONIX 40 MG PO ×2 (08:02→21:11)
[2023-07-21] MEDS: DAKIN'S SOLUTION 0.125% 1/4 STRENGTH 473 ML TOPICAL (08:03)
[2023-07-21] MEDS: RETACRIT 10000 UNITS IV (09:50)
[2023-07-21] MEDS: CARAFATE SUSPENSION PO (11:23)
--- NOTE | 2023-07-21 11:29 | CM ---
Case management following for d/c planning
Pt scheduled for OR today for R BKA
PT/OT pend post-op
Pt from [facility]
Plan - Anticipate return to [facility] at d/c
--- NOTE | 2023-07-21 11:29 | W.PN.NEPH.HD ---
Assessment
-
pt seen during HD
vitals stable,
for BKA after HD
renal diet and FR should cont when po resumes
CVC functions well
Progress Note - Hemodialysis
-
Date of Service: July 21, 2023
Duration: 30 minutes and 3 hours
Potassium Bath: 3
Calcium Bath: 2.5
Opti-Dialyzer: 160
Ultrafiltration: Other (2kg)
Blood Flow: 400
Dialysate Flow: 600
Heparin: no
EPO: [id number]
--- NOTE | 2023-07-21 11:50 | W.PN.UPDATE ---
Update Note
Progress Note Update
Patient seen at bedside this a.m. after HD completed. Patient doing well overall.
Due to emergency and vascular OR patient will be rescheduled for tomorrow. Diet resumed
N.p.o. after midnight. Patient and team aware
--- NOTE | 2023-07-21 12:31 | W.PN.HOSP.TC ---
Today's Communication/Plan
-
Monitor vital signs and see plan
HD today
Now plan for OR tomorrow
cw abx
Assessment / Plan
Assessment / Plan
68 M with PMH significant for osteomyelitis/discitis, LUIS ANGEL requiring HD, DM2 and recent admission for encephalopathy and C Diff colitis who presents to ED from [place] for evaluation of hypoglycemic episodes.
Gen: NAD, Awake and alert, NCAT
Eyes: EOMI, PERRLA, no scleral icterus.
Neck: supple.
CV: RRR with frequent premature beats, +S1/S2, no m/r/g.
Resp: CTAB anteriorly, no rales, wheezes, or rhonchi.
Skin: No rashes.
Neuro: CN 2-12 intact, non-focal.
Psych: Normal mood and affect.
EGD 07/15/23: LA Grade C reflux esophagitis with no bleeding in the middle and lower third of the esophagus. Small hiatal hernia. Normal examined duodenum.
Colonoscopy 07/16/23: Preparation of the colon was fair.
- Non-thrombosed external hemorrhoids found on
perianal exam.
- Diverticulosis in the sigmoid colon and in the
descending colon.
- One 20 mm polyp in the sigmoid colon, removed with a
hot snare. Resected and retrieved. Clip was placed.
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
- One 3 mm polyp in the cecum, removed with a cold
snare. Complete resection. Polyp tissue not retrieved.
- Two 4 to 6 mm polyps in the ascending colon, removed
with a cold snare. Resected and retrieved.
- One 3 mm polyp in the descending colon, removed with
a cold snare. Resected and retrieved.
- External and internal hemorrhoids.
Acute blood loss anemia:
-developed during hospitalization
-underlying anemia of chronic disease
-likely due to acute GI bleed exacerbated by Eliquis/Plavix
-s/p 7U pRBCs
-was on PPI gtt, now on PO BID, carafate started
-EGD without source of bleeding as above
-colonoscopy notable for nonthrombosed external hemorrhoids and diverticulitis in the sigmoid and descending colon
-GI following
-OK to restart Eliquis 07/18/23 as per GI but holding Eliquis for BKA 07/22/23. due to OR emergency; OR will now be tomorrow 07/21
DM2 with hypoglycemia:
-a1c on 07/01/23 was 5.9%
-was reason for admission
-due to oral hypoglycemic agents, now stopped
-s/p octreotide and dextrose infusion
-SSI/accuchecks
Right heel wound with bone exposed and osteomyelitis:
-s/p wound care consult
-x-ray suggestive of osteomyelitis
-worsening leukocytosis was likely due to R heel OM
-for R BKA 07/22/23
-ID following, cont Unasyn
Other problems:
C. Diff Colitis: cont PO Vanco 125 mg PO BID through 08/14/23 as per ID
Lumbar Osteomyelitis/Discitis: Continue current cefazolin dosing
LUIS ANGEL now Requiring HD: cont HD as per renal
CAD: h/o PAD s/p RLE stenting. Plavix/Eliquis have been on hold as above for GIB. Plan to restart after surgery.
RN updated
FULL/heparin (see above regarding Eliquis)
Anticipated Discharge: > 48 hours
Subjective/Interval History
-
Date of Service: July 21, 2023
HD today
Objective Data
-
Labs:
Laboratory Results
07/21/23
05:25
WBC 18.9 H
Hgb 8.0 L
Hct 24.9 L
Plt Count 579 H
PT 15.4 H
INR 1.24
APTT 61.7 H
Sodium 133 L
Potassium 3.9
Chloride 98
Carbon Dioxide 23
BUN 44 H
Creatinine 5.7 H*
Glucose 68 L
Calcium 8.2 L
Vital Signs:
Vital Signs
Temp Pulse Resp BP Pulse Ox
98.7 F 89 18 146/78 96
07/21/23 07:15 07/21/23 07:15 07/21/23 07:15 07/21/23 07:15 07/21/23 07:15
I&O
07/20/23 07/21/23 07/22/23
06:59 06:59 06:59
Intake Total 2129 / 2306
Output Total 200 / 200 375 / 375
Balance 1929
[2023-07-21 13:11] LABS: Glucose - Point of Care 78 mg/dl (70-99)
[2023-07-21 15:50] VITALS: BP 134/66
[2023-07-21] MEDS: UNASYN IV (16:19)
[2023-07-21] MEDS: HEPARIN 5000 UNITS SC (16:20)
[2023-07-21 16:29] LABS: Glucose - Point of Care 100 mg/dl (70-99)
--- NOTE | 2023-07-21 17:33 | W.PN.ID1 ---
Date of Service
Date of Service: July 21, 2023
Today's Communication
c/w unasyn
Assessment / Plan
#Necrotic/ischemic right heel chronic wound - progressive
# PAD
- osteomyelitis of the right heel.
- Most likely source of leukocytosis
- await BKA
- continue unasyn - some interval improvement in leukocytosis however does not change the recommendation for amputation
- offloading
#Diarrhea - resolved
Recent diagnosis of C. difficile
- current testing negative.
- continue prophylactic Vanco 125 mg po BID through 08/14/23
#L2-L3 and possibly L3-L4 Discitis, Osteomyelitis
Epidural abscess from L1- sacrum, s/p laminectomy (06/13/2023)
Psoas Abscesses bilaterally
MSSA Bacteremia - cleared
LUIS ANGEL: ATN vs PIGN
- blood cultures no growth
- cefazolin was temporarily switched to unasyn, course remains through 08/09/23; after amputation plan to switch back to cefazolin
- outpatient follow up with patients [facility] physicians following D/C
����������������������������������������������������������
Chief Complaint
-: Leukocytosis and Other (diarrhea; Hx epidural abscess)
Subjective / Review of Systems
afebrile
bp stable
slow decline in leukocytosis
K normal
pending amputation
Vital Signs / Physical Exam
Vital Signs
Vital Signs
Temp Pulse Resp BP Pulse Ox
98.7 F 89 18 146/78 96
07/21/23 07:15 07/21/23 07:15 07/21/23 07:15 07/21/23 07:15 07/21/23 07:15
Physical Exam
Constitutional: No Acute Distress
Cardiovascular: Regular Rate and S1/S2; Negative Murmur or Rub
Pulmonary: Clear and Symmetric; Negative Wheezes or Rales
Gastrointestinal: Soft, Non Tender, Non Distended and Normal Bowel Sounds
Skin: Warm and Dry; Negative Rash or Jaundice
Wound: Other (dressing take down deferred - obvious putrid odor on entering the room)
Objective Data
Lab Data
Lab Results
07/21/23 05:25
07/21/23 05:25
PT 15.4 Sec (11.4-14.6) H 07/21/23 05:25
INR 1.24 07/21/23 05:25
APTT 61.7 Sec (23.4-35.0) H 07/21/23 05:25
Estimated Creat Clear 15 ml/min 07/21/23 05:25
Total Bilirubin 0.5 mg/dl (0.2-1.3) 07/12/23 05:26
AST 16 U/L (17-59) L 07/12/23 05:26
ALT < 10 U/L (0-50) 07/12/23 05:26
Alkaline Phosphatase 207 U/L (38-126) H 07/12/23 05:26
Most recent labs reviewed.
Micro Results:
07/09/23 12:46 C. difficile GDH Antigen & Toxins - Final
Feces/Stool Negative for toxigenic C.difficile
07/10/23 CT a/p: There are bilateral fluid collections in the psoas left greater than right. Most consistent with treated abscesses, forming seromas in a patient with a history of known psoas abscess. No free air. No free fluid or fluid collection.
No focal area of abnormal hemorrhage in the bowel to suggest GI hemorrhage. Diverticulosis. No CT evidence for diverticulitis. The patient's GI bleed may be due to intermittent bleeding from a diverticulum. No bleeding identified on the current
exam. Patient is status post laminectomy, and by report is undergoing treatment for osteomyelitis discitis. Unfortunately there are no prior exams for comparison. There is a small fluid collection in the postoperative bed most consistent with
postoperative change. Mildly prominent lymph nodes in the rabia hepatis and in the pelvis, likely reactive
[2023-07-21] MEDS: LOPRESSOR 25 MG PO (21:11)
[2023-07-21 21:38] LABS: Glucose - Point of Care 116 mg/dl (70-99)
[2023-07-21 23:10] VITALS: BP 122/65
[2023-07-22] VITALS (8 sets, daily range): BP systolic 118–148; BP diastolic 62–77; BMI 23.6
[2023-07-22] MEDS: HEPARIN 5000 UNITS SC ×3 (01:15→18:28)
[2023-07-22] MEDS: HEPARIN SC (01:15)
[2023-07-22 05:30] LABS: Glucose - Point of Care 95 mg/dl (70-99)
[2023-07-22] MEDS: DILAUDID 0.25 MG IV ×2 (05:33→08:47)
[2023-07-22] MEDS: CARAFATE SUSPENSION 1 GM PO ×4 (07:39→21:21)
[2023-07-22] MEDS: FIRVANQ 125 MG PO ×2 (07:39→20:41)
[2023-07-22] MEDS: NORVASC 10 MG PO (07:40)
[2023-07-22] MEDS: TYLENOL 1000 MG PO ×3 (07:40→23:34)
[2023-07-22] MEDS: LOW STRENGTH ASPIRIN 81 MG PO (07:40)
[2023-07-22] MEDS: LOPRESSOR 25 MG PO ×2 (07:40→20:41)
[2023-07-22] MEDS: PROTONIX 40 MG PO ×2 (07:40→20:41)
[2023-07-22] MEDS: DAKIN'S SOLUTION 0.125% 1/4 STRENGTH 473 ML TOPICAL (07:42)
[2023-07-22 07:59] LABS: % Basophils 0.4 % (0-2); % Eosinophils 0.6 % (0-6); % Immature Granulocytes 1.3 % (0-0.5); % Lymphocytes 7.5 % (20.5-51.1); % Monocytes 9.7 % (1.7-9.3); % Neutrophils 80.5 % (42.2-75.2); Absolute Basophils 0.1 10^3/uL (0-0.2); Absolute Eosinophils 0.1 10^3/uL (0-0.7); Absolute Immature Granulocytes 0.2 10^3/uL (0-0.05); Absolute Lymphocytes 1.3 10^3/uL (1.2-3.4); Absolute Monocytes 1.7 10^3/uL (0.1-0.6); Absolute Neutrophils 13.8 10^3/uL (1.4-6.5); Hematocrit 25.9 % (39.0-52.0); Hemoglobin 8.4 g/dL (13.0-18.0); Mean Corp Hgb Conc. 32.4 g/dL (33.0-37.0); Mean Corpuscular Hgb 29.2 pg (27.0-31.0); Mean Corpuscular Volume 89.9 fL (80.0-94.0); Mean Platelet Volume 9.2 fL (7.4-10.4); Nucleated Red Blood Cells % 0 % (-); Platelet Count 564 10^3/uL (130-400); Red Blood Cell Count 2.88 10^6/uL (4.70-6.10); Red Cell Dist. Width 16.3 % (11.5-14.5); White Blood Cell Count 17.2 10^3/uL (4.8-10.8)
[2023-07-22 08:32] LABS: Blood Urea Nitrogen 30 mg/dl (9-20); Calcium 8.1 mg/dl (8.4-10.2); Carbon Dioxide 27 mmol/L (22-30); Chloride 99 mmol/L (98-107); Estimated Creatinine Clearance 20 ml/min; Glucose 81 mg/dl (70-99); Sodium 135 mmol/L (135-145); eGFR 14.42
[2023-07-22] MEDS: BACTROBAN 2% OINTMENT 1 APPLIC NASAL (08:46)
[2023-07-22] MEDS: PERIDEX 0.12% ORAL RINSE 15 ML PO (08:46)
--- NOTE | 2023-07-22 09:34 | W.SUR.PREOP ---
Pre-Operative Surgical Note
-
I have examined this patient prior to the performance of the scheduled procedure.
The patient's condition is unchanged from the time of the current History and
Physical and the patient is able to undergo the scheduled procedure.
[2023-07-22 11:38] LABS: Glucose - Point of Care 104 mg/dl (70-99)
--- NOTE | 2023-07-22 14:26 | W.PN.NEPH.PH ---
Today's Communication / Plan
-
HD tomorrow
Assessment/Plan
-
Assessment:
ESRD
Anemia
Cdiff colitis
Hypoglycemia
Recent epidural/psoas abscess
chronic R heel wound
Plan:
plan for HD tomorrow
for BKA today
abx per ID
BPs table
-
-
Date of Service: July 22, 2023
CC / HPI / ROS
-
Chief Complaint:
ESRD
History of Present Illness:
tolerated HD yesterday
Hgb stable 8.4
BP stable
Review of Systems:
no CP/SOB
Labs
-
Labs:
WBC 17.2 10^3/uL (4.8-10.8) H 07/22/23 07:38
RBC 2.88 10^6/uL (4.70-6.10) L 07/22/23 07:38
Hgb 8.4 g/dL (13.0-18.0) L 07/22/23 07:38
Hct 25.9 % (39.0-52.0) L 07/22/23 07:38
Plt Count 564 10^3/uL (130-400) H 07/22/23 07:38
Sodium 135 mmol/L (135-145) 07/22/23 07:38
Potassium 4.0 mmol/L (3.5-5.1) 07/22/23 07:38
Chloride 99 mmol/L (98-107) 07/22/23 07:38
Carbon Dioxide 27 mmol/L (22-30) 07/22/23 07:38
BUN 30 mg/dl (9-20) H 07/22/23 07:38
Creatinine 4.3 mg/dL (0.7-1.3) H* 07/22/23 07:38
eGFR 14.42 06/04/24 07:38
Glucose 81 mg/dl (70-99) 07/22/23 07:38
Calcium 8.1 mg/dl (8.4-10.2) L 07/22/23 07:38
Albumin 2.5 g/dl (3.5-5.0) L 07/12/23 05:26
Physical Exam
-
Vital Signs:
Vital Signs
Temp Pulse Resp BP Pulse Ox
98.9 F 88 17 148/76 96
07/22/23 07:35 07/22/23 07:35 07/22/23 07:35 07/22/23 07:40 07/22/23 07:35
Cardiovascular:: Regular rate and rhythm
Respiratory:: Bilateral: CTA
Lung Excursion:: Normal
Abdomen:: Soft
Extremity Edema:: None: Bilateral:
Mccloud Catheter: No
--- NOTE | 2023-07-22 16:03 | W.PN.ID1 ---
Date of Service
Date of Service: July 22, 2023
Today's Communication
pending amputation, continue unasyn
Assessment / Plan
#Necrotic/ischemic right heel chronic wound - progressive
# PAD
- osteomyelitis of the right heel.
- Most likely source of leukocytosis
- await BKA
- continue unasyn - some interval improvement in leukocytosis however does not change the recommendation for amputation
- offloading
#Diarrhea - resolved
Recent diagnosis of C. difficile
- current testing negative.
- continue prophylactic Vanco 125 mg po BID through 08/14/23
#L2-L3 and possibly L3-L4 Discitis, Osteomyelitis
Epidural abscess from L1- sacrum, s/p laminectomy (06/13/2023)
Psoas Abscesses bilaterally
MSSA Bacteremia - cleared
LUIS ANGEL: ATN vs PIGN
- blood cultures no growth
- cefazolin was temporarily switched to unasyn, course remains through 08/09/23; after amputation plan to switch back to cefazolin
- outpatient follow up with patients [facility] physicians following D/C
����������������������������������������������������������
Chief Complaint
-: Leukocytosis and Other (diarrhea; Hx epidural abscess)
Subjective / Review of Systems
afebrile
bp stable
leukocytosis ongoing
K normal
pending amputation
Vital Signs / Physical Exam
Vital Signs
Vital Signs
Temp Pulse Resp BP Pulse Ox
98.9 F 88 17 148/76 96
07/22/23 07:35 07/22/23 07:35 07/22/23 07:35 07/22/23 07:40 07/22/23 07:35
Physical Exam
Constitutional: No Acute Distress
Cardiovascular: Regular Rate and S1/S2; Negative Murmur or Rub
Pulmonary: Clear and Symmetric; Negative Wheezes or Rales
Gastrointestinal: Soft, Non Tender, Non Distended and Normal Bowel Sounds
Skin: Warm and Dry; Negative Rash or Jaundice
Wound: Other (dressing take down deferred, no extension of cellulitis above the dressing)
Objective Data
Lab Data
Lab Results
07/22/23 07:38
07/22/23 07:38
PT 15.4 Sec (11.4-14.6) H 07/21/23 05:25
INR 1.24 07/21/23 05:25
APTT 61.7 Sec (23.4-35.0) H 07/21/23 05:25
Estimated Creat Clear 20 ml/min 07/22/23 07:38
Total Bilirubin 0.5 mg/dl (0.2-1.3) 07/12/23 05:26
AST 16 U/L (17-59) L 07/12/23 05:26
ALT < 10 U/L (0-50) 07/12/23 05:26
Alkaline Phosphatase 207 U/L (38-126) H 07/12/23 05:26
Most recent labs reviewed.
Micro Results:
07/09/23 12:46 C. difficile GDH Antigen & Toxins - Final
Feces/Stool Negative for toxigenic C.difficile
07/10/23 CT a/p: There are bilateral fluid collections in the psoas left greater than right. Most consistent with treated abscesses, forming seromas in a patient with a history of known psoas abscess. No free air. No free fluid or fluid collection.
No focal area of abnormal hemorrhage in the bowel to suggest GI hemorrhage. Diverticulosis. No CT evidence for diverticulitis. The patient's GI bleed may be due to intermittent bleeding from a diverticulum. No bleeding identified on the current
exam. Patient is status post laminectomy, and by report is undergoing treatment for osteomyelitis discitis. Unfortunately there are no prior exams for comparison. There is a small fluid collection in the postoperative bed most consistent with
postoperative change. Mildly prominent lymph nodes in the rabia hepatis and in the pelvis, likely reactive
--- NOTE | 2023-07-22 16:43 | CM ---
Patient just left for OR. CM will continue to follow for discharge planning needs.
Plan; SNF
--- NOTE | 2023-07-22 16:53 | W.PN.UPDATE ---
Update Note
Progress Note Update
Patient was not seen by myself today.
By the time I got to the floor, he was already in the operating room for his planned below-knee amputation. As of this writing, he is still in the operating room and not even in the recovery suite.
Will see tomorrow.
--- NOTE | 2023-07-22 17:18 | OR.RPT ---
Operative Report
Operative Report
Date of Operation: 07/22/2023
Pre Op Diagnosis: Nonsalvageable right lower extremity with extensive infected and necrotic right heel wound
Post Op Diagnosis: Nonsalvageable right lower extremity with extensive infected and necrotic right heel wound
Procedure: Right lower extremity amputation, below the knee
Surgeon: Allen Mccloud III, MD
Appeals Specialist: Jude Noguera MD PhD, PGY1
Anesthesia: General
Complications: None
Estimated Blood Loss: 200 cc
History and Indications for Procedure: 68-year-old male with extensive necrotic and infected right heel wound. There were no options for limb salvage.
Procedure in Detail: Dustin Hairston was correctly identified and placed supine on the operating table. After adequate induction of anesthesia the right leg was prepped and draped in the usual sterile fashion. A timeout procedure was performed with
the nursing and anesthesia staff confirming the patient�s identity as well as the nature and laterality of the procedure. A transverse incision was made approximately 1 hands-breadth below the tibial tuberosity and carried medially and laterally to
the fpc points on the calf. The incision was then turned along the long axis of the calf and carried down towards the ankle to create the posterior flap. Electrocautery was used on the subcutaneous tissue and muscle of the anterior and lateral
tissue. A chronically occluded prosthetic bypass graft was identified in the tissue medially. This was divided between clamps. The proximal end was pulled distally, ligated with 2 silk ties and then cut and allowed to retract proximally into the
soft tissue away from the wound edge. The anterior tibial artery and vein were identified and then ligated and divided between ties. The tibia and fibula were each circumferentially exposed. A periosteal elevator was used on each to elevate the
periosteum more proximally. The tibia was then divided with a saw. The anterior surface was beveled and smoothed with the saw and a rasp. The fibula was then divided more proximally than the tibia and all edges were smoothed with the assistance of a
rasp. The amputation was then completed along the posterior flap. The leg was then passed off to the back table to be sent to pathology. Hemostasis was achieved along the posterior flap using a combination of electrocautery and interrupted silk
suture ligatures. Once hemostasis was achieved the wound was irrigated with copious amounts of warm saline solution. The wound was then closed in multiple layers. Sterile dressings were applied.
The patient tolerated the procedure well and was taken to the PACU in stable condition.
Attestation: I was present and responsible for the entire procedure
Signed:
Allen Mccloud III, MD
[facility] Vascular Surgery
[phone] (cell)
[2023-07-22 17:42] LABS: Glucose - Point of Care 108 mg/dl (70-99)
[2023-07-22] MEDS: DILAUDID PCA 30 IV (17:56)
[2023-07-22] MEDS: NSS 1000 IV (17:56)
--- NOTE | 2023-07-22 18:22 | W.IMMPOSTOP ---
Surgical Immed Post Op Note
-
Primary Surgeon: Dr. Allen Mccloud III, MD
Assisting Surgeon: Dr. Jude Noguera MD, PhD (PGY-1)
Pre-op Diagnosis: Right lower extremity with necrotic wound
Post-op Diagnosis: Right lower extremity with necrotic wound
Procedure Performed: Right below knee amputation
Anesthesia Type: General
Specimen / Cultures: None
Estimated Blood Loss: 200cc
Complications: None
Operative Findings: The patient was brought to the OR and placed in the supine position. Following induction with anesthesia, the right lower extremity was prepped and draped in usual sterile fashion. An incision was made along the left lower
extremity, creating a posterior flap. The soft tissues were dissected with electrocautery and large vessels and the sciatic nerve were ligated with suture before being divided. The tibia and fibula were circumferentially dissected. The bone saw was
used to transect both the tibia and fibula. Electrocautery was used to remove the soft tissues from the posterior aspect of the bone stumps. The amputated wound bed was irrigated extensively. Hemostasis was ensured. The posterior flap was brought up
to the anterior aspect of the incision. 2-0 interrupted vicryl sutures were used to bring together the fascia. 3-0 interrupted sutures were also used to help close the deep dermal layers. Then cesario were applied on the surface of the skin. The
stump was wrapped. At the conclusion of the case, the patient was transported to the PACU in stable condition.
[2023-07-22] MEDS: UNASYN IV (18:28)
[2023-07-22] MEDS: PEPCID 20 MG PO (21:22)
[2023-07-22 22:06] LABS: Glucose - Point of Care 99 mg/dl (70-99)
[2023-07-23 01:01] VITALS: BP 112/62
[2023-07-23] MEDS: HEPARIN 5000 UNITS SC ×4 (01:15→23:03)
[2023-07-23 04:50] VITALS: BP 123/67
[2023-07-23 06:00] VITALS: BMI 22.1
[2023-07-23 07:19] LABS: Glucose - Point of Care 84 mg/dl (70-99)
--- NOTE | 2023-07-23 08:01 | W.PN.VS ---
Addendum entered and electronically signed by Thong Gutierrez MD 07/23/23 09:54:
Seen and examined with MICHELLE Adams. Agree with findings as noted below. Right lower extremity dressing clean dry and intact, no staining. No evidence of hematoma. Plan/as discussed and noted below. Discussed with patient importance of knee
extension to prevent contractures. If continues with contraction over the next day or 2, will likely plan using knee extension immobilizer.
Original Note:
Today's Communication / Plan
-
Seen and assessed with Dr. Gutierrez
Assessment/Plan
-
POD 1 right BKA
Plan:
-Dressing will stay in place today to be changed by us tomorrow
-Keep PRIVATE SECRETARY today
-Trapeze for bed please
-PT/OT
Subjective Data
-
Date of Service: July 23, 2023
Patient seen at bedside this a.m. with Dr. Gutierrez. Patient complains of right amputation site pain. States the PRIVATE SECRETARY medication is working. Educated on when to use the PRIVATE SECRETARY and to not wait too long between doses. Educated to try to straighten knee
joint as much as possible. Patient states dressing became saturated overnight and was rewrapped by the nurse. Dressing is dry at this time
Objective Data
-
Vital Signs
Temp Pulse Resp BP Pulse Ox
97.7 F 71 16 123/67 95
07/23/23 04:50 07/23/23 04:50 07/23/23 04:50 07/23/23 04:50 07/23/23 04:50
Intake and Output
07/22/23 07/23/23 07/24/23
06:59 06:59 06:59
Intake Total 1260 / 1260 40 / 40
Output Total 500 / 500 250 / 250
Balance 760 / 760 -210 / -210
Intake:
Oral fluids 1260 / 1260
IV fluids (Total) 40 / 40
normosol 40 / 40
Output:
Urine, Voided 500 / 500 250 / 250
Calcium 8.1 mg/dl (8.4-10.2) L 07/22/23 07:38
Magnesium 1.9 mg/dl (1.6-2.3) 07/11/23 04:40
Total Bilirubin 0.5 mg/dl (0.2-1.3) 07/12/23 05:26
AST 16 U/L (17-59) L 07/12/23 05:26
ALT < 10 U/L (0-50) 07/12/23 05:26
Alkaline Phosphatase 207 U/L (38-126) H 07/12/23 05:26
Total Protein 5.4 g/dl (6.3-8.2) L 07/12/23 05:26
Albumin 2.5 g/dl (3.5-5.0) L 07/12/23 05:26
Physical Exam
-
AAOx3
No tachypnea
No tachycardia
Abdomen soft
Amputation site dressings clean dry and intact
[2023-07-23 08:03] VITALS: BP 129/69
[2023-07-23 08:21] LABS: % Basophils 0.5 % (0-2); % Eosinophils 1.2 % (0-6); % Immature Granulocytes 1.6 % (0-0.5); % Lymphocytes 10.7 % (20.5-51.1); Absolute Basophils 0.1 10^3/uL (0-0.2); Absolute Eosinophils 0.2 10^3/uL (0-0.7); Absolute Immature Granulocytes 0.2 10^3/uL (0-0.05); Absolute Lymphocytes 1.4 10^3/uL (1.2-3.4); Absolute Monocytes 1.2 10^3/uL (0.1-0.6); Absolute Neutrophils 10.3 10^3/uL (1.4-6.5); Hematocrit 24.9 % (39.0-52.0); Hemoglobin 7.8 g/dL (13.0-18.0); Mean Corp Hgb Conc. 31.3 g/dL (33.0-37.0); Mean Corpuscular Hgb 28.7 pg (27.0-31.0); Mean Corpuscular Volume 91.5 fL (80.0-94.0); Mean Platelet Volume 9.1 fL (7.4-10.4); Nucleated Red Blood Cells % 0 % (-); Platelet Count 552 10^3/uL (130-400); Red Blood Cell Count 2.72 10^6/uL (4.70-6.10); Red Cell Dist. Width 16.6 % (11.5-14.5); White Blood Cell Count 13.4 10^3/uL (4.8-10.8)
[2023-07-23 08:44] LABS: Blood Urea Nitrogen 42 mg/dl (9-20); Carbon Dioxide 23 mmol/L (22-30); Chloride 98 mmol/L (98-107); Estimated Creatinine Clearance 15 ml/min; Glucose 67 mg/dl (70-99); Potassium 4.1 mmol/L (3.5-5.1); Sodium 134 mmol/L (135-145); eGFR 10.28
[2023-07-23] MEDS: NOVOLOG FLEXPEN-LOW RESISTANCE SC ×3 (09:51→16:57)
[2023-07-23] MEDS: CARAFATE SUSPENSION 1 GM PO ×3 (09:52→21:10)
[2023-07-23] MEDS: FIRVANQ 125 MG PO ×2 (09:52→20:55)
[2023-07-23] MEDS: LOW STRENGTH ASPIRIN 81 MG PO (09:53)
[2023-07-23] MEDS: TYLENOL 1000 MG PO ×3 (09:53→21:10)
[2023-07-23] MEDS: LOPRESSOR 25 MG PO ×2 (09:53→20:56)
[2023-07-23] MEDS: NORVASC PO (09:53)
[2023-07-23] MEDS: PROTONIX 40 MG PO ×2 (09:53→20:56)
[2023-07-23] MEDS: DAKIN'S SOLUTION 0.125% 1/4 STRENGTH TOPICAL (09:55)
--- NOTE | 2023-07-23 10:18 | W.PN.ID1 ---
Date of Service
Date of Service: July 23, 2023
Today's Communication
switched back to cefazolin to complete course for epidural abscess
outpatient follow up with patients [facility] physicians following D/C
Assessment / Plan
#L2-L3 and possibly L3-L4 Discitis, Osteomyelitis
Epidural abscess from L1- sacrum, s/p laminectomy (06/13/2023)
Psoas Abscesses bilaterally
MSSA Bacteremia - cleared
LUIS ANGEL: ATN vs PIGN
- blood cultures no growth
- switched to cefazolin to continue through 08/09/23
- outpatient follow up with patients [facility] physicians following D/C
#Necrotic/ischemic right heel chronic wound - progressive
# PAD
- s/p amputation 07/22/23
- appreciate vascular surgery assistance
# Colonization with C difficile
- continue prophylactic Vanco 125 mg po BID through 08/14/23
����������������������������������������������������������
Chief Complaint
-: Leukocytosis and Other (diabetic foot infection, Hx epidural abscess)
Subjective / Review of Systems
afebrile
bp stable
resolving leukocytosis/thrombocytosis
K normal
s/p R BKA
Vital Signs / Physical Exam
Vital Signs
Vital Signs
Temp Pulse Resp BP Pulse Ox
97.2 F 72 16 129/69 95
07/23/23 08:03 07/23/23 08:03 07/23/23 08:03 07/23/23 08:03 07/23/23 08:03
Physical Exam
Constitutional: No Acute Distress
Cardiovascular: Regular Rate and S1/S2; Negative Murmur or Rub
Pulmonary: Clear and Symmetric; Negative Wheezes or Rales
Gastrointestinal: Soft, Non Tender, Non Distended and Normal Bowel Sounds
Skin: Warm and Dry; Negative Rash or Jaundice
Objective Data
Lab Data
Lab Results
07/23/23 07:45
07/23/23 07:45
PT 15.4 Sec (11.4-14.6) H 07/21/23 05:25
INR 1.24 07/21/23 05:25
APTT 61.7 Sec (23.4-35.0) H 07/21/23 05:25
Estimated Creat Clear 15 ml/min 07/23/23 07:45
Total Bilirubin 0.5 mg/dl (0.2-1.3) 07/12/23 05:26
AST 16 U/L (17-59) L 07/12/23 05:
ALT < 10 U/L (0-50) 07/12/23 05:
Alkaline Phosphatase 207 U/L (38-126) H 07/12/23 05:26
Most recent labs reviewed.
Micro Results:
07/09/23 12:46 C. difficile GDH Antigen & Toxins - Final
Feces/Stool Negative for toxigenic C.difficile
07/10/23 CT a/p: There are bilateral fluid collections in the psoas left greater than right. Most consistent with treated abscesses, forming seromas in a patient with a history of known psoas abscess. No free air. No free fluid or fluid collection.
No focal area of abnormal hemorrhage in the bowel to suggest GI hemorrhage. Diverticulosis. No CT evidence for diverticulitis. The patient's GI bleed may be due to intermittent bleeding from a diverticulum. No bleeding identified on the current
exam. Patient is status post laminectomy, and by report is undergoing treatment for osteomyelitis discitis. Unfortunately there are no prior exams for comparison. There is a small fluid collection in the postoperative bed most consistent with
postoperative change. Mildly prominent lymph nodes in the rabia hepatis and in the pelvis, likely reactive
[2023-07-23 11:46] LABS: Glucose - Point of Care 101 mg/dl (70-99)
[2023-07-23] MEDS: CARAFATE SUSPENSION PO (12:00)
--- NOTE | 2023-07-23 13:08 | W.PN.HOSP.TC ---
Today's Communication/Plan
-
apprec all consultants'
s/p BKA
GI bleed stopped
d/c planning
Assessment / Plan
Assessment / Plan
68 M with PMH significant for osteomyelitis/discitis, LUIS ANGEL requiring HD, DM2 and recent admission for encephalopathy and C Diff colitis who presents to ED from [place] for evaluation of hypoglycemic episodes.
Acute blood loss anemia--developed during hospitalization--underlying anemia of chronic disease--likely due to acute GI bleed exacerbated by Eliquis/Plavix--s/p 7U pRBCs-was on PPI gtt, now on PO BID, carafate started-EGD without source of bleeding
as above-colonoscopy notable for nonthrombosed external hemorrhoids and diverticulitis in the sigmoid and descending colon--OK to restart Eliquis 07/18/23 as per GI but holding Eliquis for BKA 07/22/23
DM2 with hypoglycemia--initial admitting diagnosis--a1c on 07/01/23 was 5.9%--due to oral hypoglycemic agents, now stopped--s/p octreotide and dextrose infusion--SSI/accuchecks
Right heel wound with bone exposed and osteomyelitis--s/p wound care consult--s/p right BKA 07/22/23--ID following, cont Unasyn
Other problems:
C. Diff Colitis: cont PO Vanco 125 mg PO BID through 08/14/23 as per ID
Lumbar Osteomyelitis/Discitis: Continue current cefazolin dosing
LUIS ANGEL now Requiring HD: cont HD as per renal
CAD: h/o PAD s/p RLE stenting. Plavix/Eliquis have been on hold as above for GIB. Plan to restart after surgery.
RN updated
FULL/heparin (see above regarding Eliquis)
Anticipated Discharge: 24 - 48 hours
Subjective/Interval History
-
Date of Service: July 23, 2023
pt without c/o--had amputation 07/21
Objective Data
-
Labs:
Laboratory Results
07/23/23
07:45
WBC 13.4 H
Hgb 7.8 L
Hct 24.9 L
Plt Count 552 H
Sodium 134 L
Potassium 4.1
Chloride 98
Carbon Dioxide 23
BUN 42 H
Creatinine 5.7 H*
Glucose 67 L
Calcium 8.0 L
Vital Signs:
max temp for 24 hours
07/22/23
21:26
Temp 97.9 F
Vital Signs
Temp Pulse Resp BP Pulse Ox
97.2 F 72 16 129/69 95
07/23/23 08:03 07/23/23 08:03 07/23/23 08:03 07/23/23 08:03 07/23/23 08:03
I&O
07/22/23 07/23/23 07/24/23
06:59 06:59 06:59
Intake Total 1260 / 1260 40 / 40
Output Total 500 / 500 250 / 250
Balance 760 / 760 -210 / -210
Review of Systems
-
All other systems: Reviewed and negative
Physical Exam
-
General: Appears Chronically Ill
HEENT: Normocephalic and Atraumatic
Respiratory: Clear to Auscultation; Negative Wheezes or Rhonchi
Cardiac: Regular Rhythm, S1/S2 and Murmur
GI: Soft, Nontender, Nondistended and Normal Bowel Sounds
Musculoskeletal: No Clubbing, No Cyanosis, No Edema and Other (right BKA 6/4--bandages over stump)
Psych: Calm
--- NOTE | 2023-07-23 13:17 | CM ---
Addendum entered by Quynh Espinoza 07/24/23 16:09:
Patient sister called and reviewed some of her concerns regarding SNF. Patient sister requested physician to call. CM sent tt to Nephrology requesting a call to the sister.
Original Note:
Patient seen at bedside with physician. Patient s/p BKA and plan is for return to SNF when medically appropriate. CM will continue to follow for discharge planning needs.
Plan; SNF
[2023-07-23 14:51] VITALS: BP 119/45
[2023-07-23] MEDS: RETACRIT 10000 UNITS IV (14:56)
--- NOTE | 2023-07-23 15:10 | W.PN.NEPH.HD ---
Assessment
-
Seen on HD. no complaints. VSS, access ok
Progress Note - Hemodialysis
-
Date of Service: July 23, 2023
Duration: 30 minutes and 3 hours
Potassium Bath: 3
Calcium Bath: 2.5
Opti-Dialyzer: 160
Ultrafiltration: Other (2kg)
Blood Flow: 400
Dialysate Flow: 600
Heparin: no
EPO: [id number] units
[2023-07-23 16:36] LABS: Glucose - Point of Care 116 mg/dl (70-99)
[2023-07-23] MEDS: NSS 1000 IV (17:07)
[2023-07-23] MEDS: ANCEF 10 IV (20:55)
[2023-07-23 22:14] LABS: Glucose - Point of Care 148 mg/dl (70-99)
[2023-07-23] MEDS: DILAUDID 0.25 MG IV (23:04)
[2023-07-23 23:05] VITALS: BP 117/64
[2023-07-23 23:40] LABS: Hematocrit 22.6 % (39.0-52.0); Hemoglobin 7.5 g/dL (13.0-18.0); Mean Corp Hgb Conc. 33.2 g/dL (33.0-37.0); Mean Corpuscular Volume 87.3 fL (80.0-94.0); Platelet Count 524 10^3/uL (130-400); Red Blood Cell Count 2.59 10^6/uL (4.70-6.10); Red Cell Dist. Width 16.4 % (11.5-14.5); White Blood Cell Count 10.9 10^3/uL (4.8-10.8)
[2023-07-23 23:56] LABS: Blood Urea Nitrogen 20 mg/dl (9-20); Calcium 7.6 mg/dl (8.4-10.2); Carbon Dioxide 28 mmol/L (22-30); Chloride 98 mmol/L (98-107); Estimated Creatinine Clearance 31 ml/min; Glucose 113 mg/dl (70-99); Potassium 3.6 mmol/L (3.5-5.1); Sodium 134 mmol/L (135-145); eGFR 24.13
[2023-07-24] MEDS: DILAUDID 0.25 MG IV ×2 (05:19→07:55)
[2023-07-24 07:00] VITALS: BP 134/79
[2023-07-24] MEDS: TYLENOL 1000 MG PO ×3 (08:08→22:29)
[2023-07-24] MEDS: NEURONTIN 100 MG PO (08:08)
--- NOTE | 2023-07-24 08:10 | W.PN.VS ---
Addendum entered and electronically signed by Thong Gutierrez MD 07/24/23 09:18:
Seen and examined with MICHELLE Lam. Agree with findings as noted below. Right BKA stump staple line clean dry and intact. No hematoma. Skin flaps pink and viable. Plan/as discussed and noted below.
Original Note:
Today's Communication / Plan
-
Patient seen evaluated bedside with Dr. Thong Gutierrez, below plan reviewed with attending.
Assessment/Plan
-
POD 2 right BKA
Plan:
-Can currently keep staple site open to air due to patient experiencing severe pain at this time, will redress later today with Bolivar wrap
-Stat 0.25 mg IV push of Dilaudid for severe pain breakthrough, will add p.o. narcotic for additional pain coverage
-Trapeze for bed please
-PT/OT
Subjective Data
-
Date of Service: July 24, 2023
Patient seen and examined at bedside, reports acute breakthrough of severe pain currently at time of assessment at right BKA site. Denies nausea, vomiting, fever, and chills. Tolerating p.o. diet.
Objective Data
-
Vital Signs
Temp Pulse Resp BP Pulse Ox
98.3 F 80 18 117/64 95
07/23/23 23:05 07/23/23 23:05 07/23/23 23:05 07/23/23 23:05 07/24/23 00:00
Intake and Output
07/23/23 07/24/23 07/25/23
06:59 06:59 06:59
Intake Total 280 / 280
Output Total 525 / 525 400 / 400
Balance -245 / -245 -400 / -400
Intake:
Oral fluids 240 / 240
IV fluids (Total) 40 / 40
normosol 40 / 40
Output:
Urine, Voided 525 / 525 400 / 400
Calcium 7.6 mg/dl (8.4-10.2) L 07/23/23 23:28
Magnesium 1.9 mg/dl (1.6-2.3) 07/11/23 04:40
Total Bilirubin 0.5 mg/dl (0.2-1.3) 07/12/23 05:26
AST 16 U/L (17-59) L 07/12/23 05:26
ALT < 10 U/L (0-50) 07/12/23 05:26
Alkaline Phosphatase 207 U/L (38-126) H 07/12/23 05:26
Total Protein 5.4 g/dl (6.3-8.2) L 07/12/23 05:
Albumin 2.5 g/dl (3.5-5.0) L 07/12/23 05:26
Physical Exam
-
AAOx3
No tachypnea
No tachycardia
Abdomen soft
Amputation dressing removed, staple sites CDI and well-approximated
[2023-07-24 08:34] LABS: % Basophils 0.3 % (0-2); % Eosinophils 1.6 % (0-6); % Immature Granulocytes 1.8 % (0-0.5); % Lymphocytes 12.4 % (20.5-51.1); % Monocytes 11.7 % (1.7-9.3); % Neutrophils 72.2 % (42.2-75.2); Absolute Eosinophils 0.2 10^3/uL (0-0.7); Absolute Immature Granulocytes 0.2 10^3/uL (0-0.05); Absolute Lymphocytes 1.4 10^3/uL (1.2-3.4); Absolute Monocytes 1.3 10^3/uL (0.1-0.6); Absolute Neutrophils 8.2 10^3/uL (1.4-6.5); Hemoglobin 7.5 g/dL (13.0-18.0); Mean Corp Hgb Conc. 31.3 g/dL (33.0-37.0); Mean Corpuscular Hgb 28.5 pg (27.0-31.0); Mean Corpuscular Volume 91.3 fL (80.0-94.0); Mean Platelet Volume 9.4 fL (7.4-10.4); Nucleated Red Blood Cells % 0 % (-); Platelet Count 556 10^3/uL (130-400); Red Blood Cell Count 2.63 10^6/uL (4.70-6.10); Red Cell Dist. Width 16.3 % (11.5-14.5); White Blood Cell Count 11.4 10^3/uL (4.8-10.8)
[2023-07-24 08:36] LABS: Glucose - Point of Care 99 mg/dl (70-99)
[2023-07-24 09:04] LABS: Blood Urea Nitrogen 23 mg/dl (9-20); Calcium 7.8 mg/dl (8.4-10.2); Carbon Dioxide 28 mmol/L (22-30); Chloride 98 mmol/L (98-107); Estimated Creatinine Clearance 25 ml/min; Glucose 78 mg/dl (70-99); Potassium 3.9 mmol/L (3.5-5.1); Sodium 137 mmol/L (135-145); eGFR 19.81
[2023-07-24] MEDS: PROTONIX 40 MG PO ×2 (09:30→20:45)
[2023-07-24] MEDS: CARAFATE SUSPENSION 1 GM PO ×4 (09:30→22:24)
[2023-07-24] MEDS: FIRVANQ 125 MG PO ×2 (09:30→20:45)
[2023-07-24] MEDS: LOW STRENGTH ASPIRIN 81 MG PO (09:30)
[2023-07-24] MEDS: COLACE 100 MG PO (09:31)
[2023-07-24] MEDS: HEPARIN 5000 UNITS SC ×3 (09:31→22:29)
[2023-07-24] MEDS: NORVASC 10 MG PO (09:31)
[2023-07-24] MEDS: NOVOLOG FLEXPEN-LOW RESISTANCE SC ×3 (09:32→17:10)
[2023-07-24] MEDS: LOPRESSOR 25 MG PO ×2 (09:32→20:46)
[2023-07-24] MEDS: DAKIN'S SOLUTION 0.125% 1/4 STRENGTH TOPICAL (09:40)
--- NOTE | 2023-07-24 09:55 | W.PN.ID1 ---
Date of Service
Date of Service: July 24, 2023
Today's Communication
Continue current abx's.
Assessment / Plan
#L2-L3 and possibly L3-L4 Discitis, Osteomyelitis
Epidural abscess from L1- sacrum, s/p laminectomy (06/13/2023)
Psoas Abscesses bilaterally
MSSA Bacteremia - cleared
LUIS ANGEL: ATN vs PIGN
- blood cultures no growth
- Continue cefazolin to continue through 08/09/23
- outpatient follow up with patients [facility] physicians following D/C
#Necrotic/ischemic right heel chronic wound - progressive
# PAD
- s/p amputation 07/22/23
-Leukocytosis resolving post RLE BKA.
- appreciate vascular surgery assistance
# Colonization with C difficile
- continue prophylactic Vanco 125 mg po BID through 08/14/23
����������������������������������������������������������
Chief Complaint
-: Leukocytosis and Other (diabetic foot infection, Hx epidural abscess)
Subjective / Review of Systems
Complains of post-op stump pain.
Vital Signs / Physical Exam
Vital Signs
Vital Signs
Temp Pulse Resp BP Pulse Ox
99 F 99 16 134/79 93
07/24/23 07:00 07/24/23 07:00 07/24/23 07:00 07/24/23 07:00 07/24/23 07:00
Physical Exam
Constitutional: Chronically Ill
Gastrointestinal: Soft, Non Tender and Non Distended
Extremities: Negative Edema
Wound: Other
Objective Data
Lab Data
Lab Results
07/24/23 07:09
07/24/23 07:10
PT 15.4 Sec (11.4-14.6) H 07/21/23 05:25
INR 1.24 07/21/23 05:25
APTT 61.7 Sec (23.4-35.0) H 07/21/23 05:25
Estimated Creat Clear 25 ml/min 07/24/23 07:10
Total Bilirubin 0.5 mg/dl (0.2-1.3) 07/12/23 05:26
AST 16 U/L (17-59) L 07/12/23 05:26
ALT < 10 U/L (0-50) 07/12/23 05:26
Alkaline Phosphatase 207 U/L (38-126) H 07/12/23 05:26
Most recent labs reviewed.
Micro Results:
07/09/23 12:46 C. difficile GDH Antigen & Toxins - Final
Feces/Stool Negative for toxigenic C.difficile
07/10/23 CT a/p: There are bilateral fluid collections in the psoas left greater than right. Most consistent with treated abscesses, forming seromas in a patient with a history of known psoas abscess. No free air. No free fluid or fluid collection.
No focal area of abnormal hemorrhage in the bowel to suggest GI hemorrhage. Diverticulosis. No CT evidence for diverticulitis. The patient's GI bleed may be due to intermittent bleeding from a diverticulum. No bleeding identified on the current
exam. Patient is status post laminectomy, and by report is undergoing treatment for osteomyelitis discitis. Unfortunately there are no prior exams for comparison. There is a small fluid collection in the postoperative bed most consistent with
postoperative change. Mildly prominent lymph nodes in the rabia hepatis and in the pelvis, likely reactive
[2023-07-24] MEDS: ROXICODONE 5 MG PO ×3 (10:54→22:29)
--- NOTE | 2023-07-24 11:26 | W.PN.NEPH.PH ---
Today's Communication / Plan
-
HD tomorrow
Assessment/Plan
-
Assessment:
ESRD
Anemia
Cdiff colitis
Hypoglycemia
Recent epidural/psoas abscess
chronic R heel wound
Plan:
plan for HD tomorrow
abx per ID
dc planning, his family doesn't want him going back to [place]
-
-
Date of Service: July 24, 2023
CC / HPI / ROS
-
Chief Complaint:
ESRD
History of Present Illness:
tolerated HD yesterday
Hgb stable
BP stable
Review of Systems:
no CP/SOB
Labs
-
Labs:
WBC 11.4 10^3/uL (4.8-10.8) H 07/24/23 07:09
RBC 2.63 10^6/uL (4.70-6.10) L 07/24/23 07:09
Hgb 7.5 g/dL (13.0-18.0) L 07/24/23 07:09
Hct 24.0 % (39.0-52.0) L 07/24/23 07:09
Plt Count 556 10^3/uL (130-400) H 07/24/23 07:09
Sodium 137 mmol/L (135-145) 07/24/23 07:10
Potassium 3.9 mmol/L (3.5-5.1) 07/24/23 07:10
Chloride 98 mmol/L (98-107) 07/24/23 07:10
Carbon Dioxide 28 mmol/L (22-30) 07/24/23 07:10
BUN 23 mg/dl (9-20) H 07/24/23 07:10
Creatinine 3.3 mg/dL (0.7-1.3) H 07/24/23 07:10
eGFR 19.81 07/24/23 07:10
Glucose 78 mg/dl (70-99) 07/24/23 07:10
Calcium 7.8 mg/dl (8.4-10.2) L 07/24/23 07:10
Albumin 2.5 g/dl (3.5-5.0) L 07/12/23 05:26
Physical Exam
-
Vital Signs:
Vital Signs
Temp Pulse Resp BP Pulse Ox
99 F 99 16 134/79 93
07/24/23 07:00 07/24/23 07:00 07/24/23 07:00 07/24/23 07:00 07/24/23 07:00
Cardiovascular:: Regular rate and rhythm
Respiratory:: Bilateral: Coarse
Lung Excursion:: Normal
Abdomen:: Nontender and Soft
Bowel Sounds:: Normal
Extremity Edema:: None: Bilateral:
--- NOTE | 2023-07-24 12:03 | W.PN.HOSP.TC ---
Today's Communication/Plan
-
likely d/c back to SNF in AM
Assessment / Plan
Assessment / Plan
68 M with PMH significant for osteomyelitis/discitis, LUIS ANGEL requiring HD, DM2 and recent admission for encephalopathy and C Diff colitis who presents to ED [place] for evaluation of hypoglycemic episodes.
Acute blood loss anemia--developed during hospitalization--underlying anemia of chronic disease--likely due to acute GI bleed exacerbated by Eliquis/Plavix--s/p 7U pRBCs-was on PPI gtt, now on PO BID, carafate started-EGD without source of bleeding
as above-colonoscopy notable for nonthrombosed external hemorrhoids and diverticulitis in the sigmoid and descending colon-- restarted Eliquis after BKA 07/22/23
DM2 with hypoglycemia--initial admitting diagnosis--a1c on 07/01/23 was 5.9%--due to oral hypoglycemic agents, now stopped--s/p octreotide and dextrose infusion--SSI/accuchecks
Right heel wound with bone exposed and osteomyelitis--s/p wound care consult--s/p right BKA 07/22/23--ID following, cont Unasyn
Other problems:
C. Diff Colitis: cont PO Vanco 125 mg PO BID through 08/14/23 as per ID
Lumbar Osteomyelitis/Discitis: Continue current cefazolin dosing
LUIS ANGEL previously now Requiring HD: cont HD as per renal
CAD: h/o PAD s/p RLE stenting. Plavix/Eliquis have been on hold as above for GIB. Plan to restart after surgery.
RN updated
FULL/heparin (see above regarding Eliquis)
Anticipated Discharge: 24 - 48 hours
Subjective/Interval History
-
Date of Service: July 24, 2023
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
Objective Data
-
Labs:
Laboratory Results
07/24/23 07/24/23
07:09 07:10
WBC 11.4 H
Hgb 7.5 L
Hct 24.0 L
Plt Count 556 H
Sodium 137
Potassium 3.9
Chloride 98
Carbon Dioxide 28
BUN 23 H
Creatinine 3.3 H
Glucose 78
Calcium 7.8 L
Vital Signs:
max temp for 24 hours
07/23/23
23:05
Temp 98.3 F
Vital Signs
Temp Pulse Resp BP Pulse Ox
99 F 99 16 134/79 93
07/24/23 07:00 07/24/23 07:00 07/24/23 07:00 07/24/23 07:00 07/24/23 07:00
I&O
07/23/23 07/24/23 07/25/23
06:59 06:59 06:59
Intake Total 280 / 280
Output Total 525 / 525 400 / 400
Balance -245 / -245 -400 / -400
Review of Systems
-
All other systems: Reviewed and negative
Physical Exam
-
General: Well Developed, Well Nourished and No Apparent Distress
HEENT: Normocephalic and Atraumatic
Respiratory: Clear to Auscultation; Negative Wheezes or Rhonchi
Cardiac: Regular Rhythm and S1/S2; Negative Murmur
GI: Soft, Nontender, Nondistended and Normal Bowel Sounds
Musculoskeletal: No Clubbing, No Cyanosis, No Edema and Other (right BKA)
Skin: Warm
Neuro: Awake
[2023-07-24 12:19] LABS: Glucose - Point of Care 129 mg/dl (70-99)
[2023-07-24 15:00] VITALS: BP 117/66
[2023-07-24] MEDS: DILAUDID 0.5 MG IV ×2 (16:02→20:46)
--- NOTE | 2023-07-24 16:47 | W.PN.UPDATE ---
Update Note
Progress Note Update
spoke with sister on phone. Currently there is no indication that he is recovering renal function. However, it has only been 6 weeks since initiation, so he may still recover in the next 6 weeks.
[2023-07-24 17:00] LABS: Glucose - Point of Care 119 mg/dl (70-99)
[2023-07-24 21:40] LABS: Glucose - Point of Care 115 mg/dl (70-99)
[2023-07-24] MEDS: PEPCID 20 MG PO (22:24)
[2023-07-24 23:15] VITALS: BP 126/60
[2023-07-25] MEDS: DILAUDID 0.5 MG IV (03:05)
[2023-07-25 05:43] VITALS: BMI 21.9
[2023-07-25] MEDS: ROXICODONE 5 MG PO ×4 (06:40→20:28)
[2023-07-25 07:00] VITALS: BP 125/64
[2023-07-25 07:23] LABS: Glucose - Point of Care 86 mg/dl (70-99)
[2023-07-25] MEDS: NOVOLOG FLEXPEN-LOW RESISTANCE SC ×3 (07:49→16:37)
[2023-07-25] MEDS: CARAFATE SUSPENSION 1 GM PO ×4 (08:34→23:01)
[2023-07-25] MEDS: TYLENOL 1000 MG PO ×3 (08:34→23:01)
[2023-07-25] MEDS: COLACE 100 MG PO (08:34)
[2023-07-25] MEDS: HEPARIN 5000 UNITS SC (08:34)
[2023-07-25] MEDS: LOPRESSOR 25 MG PO ×2 (08:34→20:29)
[2023-07-25] MEDS: NORVASC 10 MG PO (08:34)
[2023-07-25] MEDS: PROTONIX 40 MG PO ×2 (08:34→20:29)
[2023-07-25] MEDS: LOW STRENGTH ASPIRIN 81 MG PO (08:34)
[2023-07-25] MEDS: FIRVANQ 125 MG PO ×2 (08:35→20:29)
--- NOTE | 2023-07-25 09:07 | W.PN.VS ---
Addendum entered and electronically signed by Allen Mccloud III, MD 07/25/23 10:48:
This patient was seen and examined with MONICA Rivera and MONICA Morrison. I agree with the history and physical exam as well as the assessment and plan. I have the following additions:
Right below the knee amputation site clean and dry
Pain is under much better control this AM
Patient absolutely needs to work with PT/OT - has refused on multiple occasions.
He seems not to understand or care that this may have negative implications on his recovery
Would greatly benefit from rehab placement
Please call with questions or concerns
Will follow-up in the office in 2 to 3 weeks for wound evaluation
Signed:
Allen Mccloud III, MD
[facility] Vascular Surgery
[phone] (qbsm)
Original Note:
Today's Communication / Plan
-
Patient seen and examined at bedside with Dr. Allen Mccloud III, below plan reviewed with attending.
Assessment/Plan
-
POD 3 right BKA
Plan:
-Can intermittently keep staple site open to air, would prefer if patient tolerates mild compression with jagjit to BKA site
- Stump protector preferred when working with PT or attempting ambulation, [employer] sales representatives will deliver today
- Continue to work with PT/OT
-Trapeze for bed please
- From a vascular surgery perspective can restart oral anticoagulation
-Ok for transfer to SNF/rehab from a vascular surgery perspective
Subjective Data
-
Date of Service: July 25, 2023
Patient seen and examined at bedside, reports great improvement in pain management at RLE BKA site. Denies nausea, vomiting, fever, and chills.
Objective Data
-
Vital Signs
Temp Pulse Resp BP Pulse Ox
98.6 F 68 18 125/64 96
07/25/23 07:00 07/25/23 07:00 07/25/23 07:00 07/25/23 07:00 07/25/23 07:00
Intake and Output
07/24/23 07/25/23 07/26/23
06:59 06:59 06:59
Intake Total 360 / 360
Output Total 400 / 400 400 / 400
Balance -400 / -400 -40 / -40
Intake:
Oral fluids 360 / 360
Output:
Urine, Voided 400 / 400 400 / 400
Other:
How many times incontinent 2
MODERATE amount urine
Calcium 7.8 mg/dl (8.4-10.2) L 07/24/23 07:10
Magnesium 1.9 mg/dl (1.6-2.3) 07/11/23 04:40
Total Bilirubin 0.5 mg/dl (0.2-1.3) 07/12/23 05:26
AST 16 U/L (17-59) L 07/12/23 05:26
ALT < 10 U/L (0-50) 07/12/23 05:26
Alkaline Phosphatase 207 U/L (38-126) H 07/12/23 05:26
Total Protein 5.4 g/dl (6.3-8.2) L 07/12/23 05:26
Albumin 2.5 g/dl (3.5-5.0) L 07/12/23 05:26
Physical Exam
-
AAOx3
No tachypnea
No tachycardia
Abdomen soft
Amputation staple sites CDI and well-approximated
--- NOTE | 2023-07-25 09:51 | W.PN.ID1 ---
Date of Service
Date of Service: July 25, 2023
Today's Communication
Continue abx's.
Assessment / Plan
#L2-L3 and possibly L3-L4 Discitis, Osteomyelitis
#Epidural abscess from L1- sacrum, s/p laminectomy (06/13/2023)
#Psoas Abscesses bilaterally
#MSSA Bacteremia - cleared
#LUIS ANGEL: ATN vs PIGN - on HD
- blood cultures no growth
- Continue cefazolin 2/2/3g with HD to through 08/09/23
- outpatient follow up with patients [facility] physicians following D/C
#PAD with progressive Necrotic/ischemic right heel chronic wound
# PAD
- s/p amputation 07/22/23
-Leukocytosis resolving post RLE BKA.
- appreciate vascular surgery assistance
# Colonization with C difficile
- continue prophylactic Vanco 125 mg po BID through 08/14/23
����������������������������������������������������������
Chief Complaint
-: Other (diabetic foot infection, Hx epidural abscess)
Subjective / Review of Systems
Post-op pain now better controlled.
Vital Signs / Physical Exam
Vital Signs
Vital Signs
Temp Pulse Resp BP Pulse Ox
98.6 F 68 18 125/64 96
07/25/23 07:00 07/25/23 07:00 07/25/23 07:00 07/25/23 07:00 07/25/23 07:00
Physical Exam
Constitutional: No Acute Distress
Pulmonary: Clear
Gastrointestinal: Soft, Non Tender and Non Distended
Objective Data
Lab Data
PT 15.4 Sec (11.4-14.6) H 07/21/23 05:25
INR 1.24 07/21/23 05:25
APTT 61.7 Sec (23.4-35.0) H 07/21/23 05:25
Estimated Creat Clear 25 ml/min 07/24/23 07:10
Total Bilirubin 0.5 mg/dl (0.2-1.3) 07/12/23 05:26
AST 16 U/L (17-59) L 07/12/23 05:26
ALT < 10 U/L (0-50) 07/12/23 05:26
Alkaline Phosphatase 207 U/L (38-126) H 07/12/23 05:26
Most recent labs reviewed.
Micro Results:
07/09/23 12:46 C. difficile GDH Antigen & Toxins - Final
Feces/Stool Negative for toxigenic C.difficile
07/10/23 CT a/p: There are bilateral fluid collections in the psoas left greater than right. Most consistent with treated abscesses, forming seromas in a patient with a history of known psoas abscess. No free air. No free fluid or fluid collection.
No focal area of abnormal hemorrhage in the bowel to suggest GI hemorrhage. Diverticulosis. No CT evidence for diverticulitis. The patient's GI bleed may be due to intermittent bleeding from a diverticulum. No bleeding identified on the current
exam. Patient is status post laminectomy, and by report is undergoing treatment for osteomyelitis discitis. Unfortunately there are no prior exams for comparison. There is a small fluid collection in the postoperative bed most consistent with
postoperative change. Mildly prominent lymph nodes in the rabia hepatis and in the pelvis, likely reactive
[2023-07-25 11:42] LABS: Glucose - Point of Care 125 mg/dl (70-99)
[2023-07-25] MEDS: NEURONTIN 100 MG PO (12:31)
[2023-07-25 12:40] LABS: % Basophils 0.6 % (0-2); % Eosinophils 2.4 % (0-6); % Immature Granulocytes 1.8 % (0-0.5); % Lymphocytes 10.2 % (20.5-51.1); % Monocytes 8.2 % (1.7-9.3); % Neutrophils 76.8 % (42.2-75.2); Absolute Basophils 0.1 10^3/uL (0-0.2); Absolute Eosinophils 0.3 10^3/uL (0-0.7); Absolute Immature Granulocytes 0.2 10^3/uL (0-0.05); Absolute Lymphocytes 1.3 10^3/uL (1.2-3.4); Absolute Monocytes 1.1 10^3/uL (0.1-0.6); Absolute Neutrophils 10.1 10^3/uL (1.4-6.5); Hematocrit 23.6 % (39.0-52.0); Hemoglobin 7.4 g/dL (13.0-18.0); Mean Corp Hgb Conc. 31.4 g/dL (33.0-37.0); Mean Corpuscular Hgb 28.7 pg (27.0-31.0); Mean Corpuscular Volume 91.5 fL (80.0-94.0); Mean Platelet Volume 9.3 fL (7.4-10.4); Nucleated Red Blood Cells % 0 % (-); Platelet Count 566 10^3/uL (130-400); Red Blood Cell Count 2.58 10^6/uL (4.70-6.10); Red Cell Dist. Width 16.2 % (11.5-14.5); White Blood Cell Count 13.1 10^3/uL (4.8-10.8)
[2023-07-25 12:55] LABS: Blood Urea Nitrogen 37 mg/dl (9-20); Calcium 7.8 mg/dl (8.4-10.2); Carbon Dioxide 28 mmol/L (22-30); Chloride 96 mmol/L (98-107); Estimated Creatinine Clearance 17 ml/min; Glucose 112 mg/dl (70-99); Potassium 3.9 mmol/L (3.5-5.1); Sodium 133 mmol/L (135-145); eGFR 12.96
[2023-07-25] MEDS: RETACRIT 10000 UNITS IV (13:46)
--- NOTE | 2023-07-25 13:59 | CM ---
Addendum entered by Quynh Espinoza 07/25/23 15:35:
Amy called to patient sister, and per amy patient sister is now ok with transfer. Please call [phone]/fax [phone]. Patient needs PT/OT assessment to confirm ambulance transportation need. CM completed medical necessity form and copy
faxed to floor.
Original Note:
Patient seen at bedside with physician and HD. Patient for possible discharge tomorrow to return to SNF at [facility]. Sister with many concerns and CM called to Amy from admissions to talk to sister about concerns. Patient states that he will
return to SNF tomorrow. Patient will need ambulance. IMM form provided to patient and reviewed. Patient currently on HD and will complete following hd. CM will call to admissions and confirm plan. CM will continue to follow for discharge planning
needs.
Plan; SNF with HD
--- NOTE | 2023-07-25 14:04 | W.PN.NEPH.HD ---
Addendum entered and electronically signed by Gris Arnold MD 07/25/23 14:09:
for trasnfusion today
high dose SARTHAK
Original Note:
Assessment
-
pt seen during HD
vitals stable
UF as able
CVC functions well
potential d/c to [facility] tomorrow
Progress Note - Hemodialysis
-
Date of Service: July 25, 2023
Duration: 30 minutes and 3 hours
Potassium Bath: 3
Calcium Bath: 2.5
Opti-Dialyzer: 160
Ultrafiltration: Other (1.5-2kg)
Blood Flow: 400
Dialysate Flow: 600
Heparin: no
EPO: [id number]
--- NOTE | 2023-07-25 14:10 | W.PN.HOSP.TC ---
Today's Communication/Plan
-
d/c to SNF tomorrow
Assessment / Plan
Assessment / Plan
68 M with PMH significant for osteomyelitis/discitis, LUIS ANGEL requiring HD, DM2 and recent admission for encephalopathy and C Diff colitis who presents to ED from [place] for evaluation of hypoglycemic episodes.
Acute blood loss anemia--developed during hospitalization--underlying anemia of chronic disease--likely due to acute GI bleed exacerbated by Eliquis/Plavix--s/p 7U pRBCs-was on PPI gtt, now on PO BID, carafate started-EGD without source of bleeding
as above-colonoscopy notable for nonthrombosed external hemorrhoids and diverticulitis in the sigmoid and descending colon-- restarted Eliquis after BKA 07/22/23--will transfuse 1 more unit pRBC on HD 07/24 for HGB 7.4
DM2 with hypoglycemia--initial admitting diagnosis--a1c on 07/01/23 was 5.9%--due to oral hypoglycemic agents, now stopped--s/p octreotide and dextrose infusion--SSI/accuchecks
Right heel wound with bone exposed and osteomyelitis--s/p wound care consult--s/p right BKA 07/22/23--ID following, cont Unasyn
Other problems:
C. Diff Colitis: cont PO Vanco 125 mg PO BID through 08/14/23 as per ID
Lumbar Osteomyelitis/Discitis: Continue current cefazolin dosing
LUIS ANGEL previously now Requiring HD: cont HD as per renal
CAD: h/o PAD s/p RLE stenting. Plavix/Eliquis have been on hold as above for GIB. Plan to restart after surgery.
RN updated
FULL/heparin (see above regarding Eliquis)
Anticipated Discharge: Within 24 hours
Subjective/Interval History
-
Date of Service: July 25, 2023
pt getting HD today
Objective Data
-
Labs:
Laboratory Results
07/25/23
12:31
WBC 13.1 H
Hgb 7.4 L
Hct 23.6 L
Plt Count 566 H
Sodium 133 L
Potassium 3.9
Chloride 96 L
Carbon Dioxide 28
BUN 37 H
Creatinine 4.7 H*
Glucose 112 H
Calcium 7.8 L
Vital Signs:
max temp for 24 hours
07/25/23
07:00
Temp 98.6 F
Vital Signs
Temp Pulse Resp BP Pulse Ox
98.6 F 68 18 125/64 96
07/25/23 07:00 07/25/23 07:00 07/25/23 07:00 07/25/23 07:00 07/25/23 07:00
I&O
07/24/23 07/25/23 07/26/23
06:59 06:59 06:59
Intake Total 360 / 360
Output Total 400 / 400 400 / 400
Balance -400 / -400 -40 / -40
Review of Systems
-
All other systems: Reviewed and negative
Physical Exam
-
General: Well Developed, Well Nourished and No Apparent Distress
HEENT: Normocephalic and Atraumatic
Respiratory: Clear to Auscultation; Negative Wheezes, Rales, Rhonchi or Crackles
Cardiac: Regular Rhythm and S1/S2; Negative Murmur
GI: Soft, Nontender, Nondistended and Normal Bowel Sounds
Musculoskeletal: No Clubbing, No Cyanosis, No Edema and Other (right BKA)
Neuro: Awake
[2023-07-25 14:43] VITALS: BP 125/62
[2023-07-25 15:00] VITALS: BP 130/86
[2023-07-25 15:08] VITALS: BP 130/61
[2023-07-25 15:41] VITALS: BP 122/74
[2023-07-25 16:33] LABS: Glucose - Point of Care 81 mg/dl (70-99)
--- NOTE | 2023-07-25 16:51 | PTCARENOTE ---
[facility] rep to room. Stump protector placed. Pt tolerated well.
[2023-07-25] MEDS: ELIQUIS 2.5 MG PO (20:28)
[2023-07-25] MEDS: ANCEF 15 MG IV (20:28)
[2023-07-25 21:34] LABS: Glucose - Point of Care 142 mg/dl (70-99)
[2023-07-25 22:53] VITALS: BP 128/76
[2023-07-26 06:00] VITALS: BMI 21.0
[2023-07-26 07:32] LABS: Glucose - Point of Care 101 mg/dl (70-99)
[2023-07-26 07:37] VITALS: BP 121/70
[2023-07-26 09:09] LABS: % Basophils 0.7 % (0-2); % Eosinophils 2.9 % (0-6); % Immature Granulocytes 2.2 % (0-0.5); % Lymphocytes 13.2 % (20.5-51.1); % Monocytes 10.1 % (1.7-9.3); % Neutrophils 70.9 % (42.2-75.2); Absolute Basophils 0.1 10^3/uL (0-0.2); Absolute Eosinophils 0.3 10^3/uL (0-0.7); Absolute Immature Granulocytes 0.3 10^3/uL (0-0.05); Absolute Lymphocytes 1.6 10^3/uL (1.2-3.4); Absolute Monocytes 1.2 10^3/uL (0.1-0.6); Absolute Neutrophils 8.5 10^3/uL (1.4-6.5); Hematocrit 26.1 % (39.0-52.0); Hemoglobin 8.7 g/dL (13.0-18.0); Mean Corp Hgb Conc. 33.3 g/dL (33.0-37.0); Mean Corpuscular Hgb 29.2 pg (27.0-31.0); Mean Corpuscular Volume 87.6 fL (80.0-94.0); Nucleated Red Blood Cells % 0 % (-); Platelet Count 570 10^3/uL (130-400); Red Blood Cell Count 2.98 10^6/uL (4.70-6.10); Red Cell Dist. Width 16.1 % (11.5-14.5); White Blood Cell Count 11.9 10^3/uL (4.8-10.8)
[2023-07-26] MEDS: ROXICODONE 5 MG PO ×2 (09:12→13:17)
[2023-07-26] MEDS: LOW STRENGTH ASPIRIN 81 MG PO (09:15)
[2023-07-26] MEDS: NOVOLOG FLEXPEN-LOW RESISTANCE SC (09:15)
[2023-07-26] MEDS: TYLENOL 1000 MG PO (09:15)
[2023-07-26] MEDS: ELIQUIS 2.5 MG PO (09:16)
[2023-07-26] MEDS: LOPRESSOR 25 MG PO (09:16)
[2023-07-26] MEDS: NORVASC 10 MG PO (09:16)
[2023-07-26] MEDS: PROTONIX 40 MG PO (09:16)
[2023-07-26] MEDS: COLACE 100 MG PO (09:16)
[2023-07-26] MEDS: CARAFATE SUSPENSION 1 GM PO ×2 (09:23→12:47)
[2023-07-26] MEDS: FIRVANQ 125 MG PO (09:23)
[2023-07-26 09:37] LABS: Blood Urea Nitrogen 21 mg/dl (9-20); Calcium 8.2 mg/dl (8.4-10.2); Carbon Dioxide 28 mmol/L (22-30); Chloride 98 mmol/L (98-107); Estimated Creatinine Clearance 25 ml/min; Glucose 85 mg/dl (70-99); Potassium 3.7 mmol/L (3.5-5.1); Sodium 134 mmol/L (135-145); eGFR 21.35
--- NOTE | 2023-07-26 11:02 | CM ---
CM let Amy/[facility] know pt has a 2pm brass pickler time.
--- NOTE | 2023-07-26 11:17 | W.PN.HOSP.TC ---
Today's Communication/Plan
-
d/c
Assessment / Plan
Assessment / Plan
68 M with PMH significant for osteomyelitis/discitis, LUIS ANGEL requiring HD, DM2 and recent admission for encephalopathy and C Diff colitis who presents to ED from [place] for evaluation of hypoglycemic episodes.
Acute blood loss anemia--developed during hospitalization--underlying anemia of chronic disease--likely due to acute GI bleed exacerbated by Eliquis/Plavix--s/p 7U pRBCs-was on PPI gtt, now on PO BID, carafate started-EGD without source of bleeding
as above-colonoscopy notable for nonthrombosed external hemorrhoids and diverticulitis in the sigmoid and descending colon-- restarted Eliquis after BKA 07/22/23--will transfuse 1 more unit pRBC on HD 07/24 for HGB 7.4--up to 8.7
DM2 with hypoglycemia--initial admitting diagnosis--a1c on 07/01/23 was 5.9%--due to oral hypoglycemic agents, now stopped--s/p octreotide and dextrose infusion--SSI/accuchecks
Right heel wound with bone exposed and osteomyelitis--s/p wound care consult--s/p right BKA 07/22/23--ID following, cont Unasyn
Other problems:
C. Diff Colitis: cont PO Vanco 125 mg PO BID through 08/14/23 as per ID
Lumbar Osteomyelitis/Discitis: Continue current cefazolin dosing
LUIS ANGEL previously now Requiring HD: cont HD as per renal
CAD: h/o PAD s/p RLE stenting. Plavix/Eliquis have been on hold as above for GIB. Plan to restart after surgery.
RN updated
FULL/heparin (see above regarding Eliquis)
Anticipated Discharge: Today
Subjective/Interval History
-
Date of Service: July 26, 2023
pt without c/o--waiting for d/c
Objective Data
-
Labs:
Laboratory Results
07/26/23
08:25
WBC 11.9 H
Hgb 8.7 L
Hct 26.1 L
Plt Count 570 H
Sodium 134 L
Potassium 3.7
Chloride 98
Carbon Dioxide 28
BUN 21 H
Creatinine 3.1 H
Glucose 85
Calcium 8.2 L
Vital Signs:
max temp for 24 hours
07/26/23
07:37
Temp 98.6 F
Vital Signs
Temp Pulse Resp BP Pulse Ox
98.6 F 68 14 121/70 98
07/26/23 07:37 07/26/23 07:37 07/26/23 07:37 07/26/23 07:37 07/26/23 07:37
I&O
07/25/23 07/26/23 07/27/23
06:59 06:59 06:59
Intake Total 360 / 360 670 / 670
Output Total 400 / 400 450 / 450
Balance -40 / -40 220 / 220
Review of Systems
-
All other systems: Reviewed and negative
Physical Exam
-
General: Well Developed, Well Nourished and No Apparent Distress
HEENT: Normocephalic and Atraumatic
Respiratory: Clear to Auscultation; Negative Wheezes or Rhonchi
Cardiac: Regular Rhythm and S1/S2; Negative Murmur
GI: Soft, Nontender, Nondistended and Normal Bowel Sounds
Musculoskeletal: No Clubbing, No Cyanosis, No Edema and Other (right BKA)
Psych: Calm
[2023-07-26 12:11] LABS: Glucose - Point of Care 177 mg/dl (70-99)
[2023-07-26] MEDS: NOVOLOG FLEXPEN-LOW RESISTANCE 1 UNITS SC (12:49)
[2023-07-26 13:54] VITALS: BP 113/60
--- NOTE | 2023-07-26 14:26 | W.PN.NEPH.PH ---
Today's Communication / Plan
-
ok for d/c
Assessment/Plan
-
Assessment:
ESRD
Anemia
Cdiff colitis
Hypoglycemia
Recent epidural/psoas abscess
chronic R heel wound
Plan:
cont HD with CVC catheter
no renal recovery noted yet
follow up labs at [facility]
for [place] [facility] today
IV abx and PO Vanc to be cont per [facility] at d/c
-
-
Date of Service: July 26, 2023
CC / HPI / ROS
-
Chief Complaint:
ESRD
History of Present Illness:
tolerated HD yesterday
Hgb stable
BP stable
Review of Systems:
no CP/SOB
Labs
-
Labs:
WBC 11.9 10^3/uL (4.8-10.8) H 07/26/23 08:25
RBC 2.98 10^6/uL (4.70-6.10) L 07/26/23 08:25
Hgb 8.7 g/dL (13.0-18.0) L 07/26/23 08:25
Hct 26.1 % (39.0-52.0) L 07/26/23 08:25
Plt Count 570 10^3/uL (130-400) H 07/26/23 08:25
Sodium 134 mmol/L (135-145) L 07/26/23 08:25
Potassium 3.7 mmol/L (3.5-5.1) 07/26/23 08:25
Chloride 98 mmol/L (98-107) 07/26/23 08:25
Carbon Dioxide 28 mmol/L (22-30) 07/26/23 08:25
BUN 21 mg/dl (9-20) H 07/26/23 08:25
Creatinine 3.1 mg/dL (0.7-1.3) H 07/26/23 08:25
eGFR 21.35 07/26/23 08:25
Glucose 85 mg/dl (70-99) 07/26/23 08:25
Calcium 8.2 mg/dl (8.4-10.2) L 07/26/23 08:25
Albumin 2.5 g/dl (3.5-5.0) L 07/12/23 05:26
Physical Exam
-
Vital Signs:
Vital Signs
Temp Pulse Resp BP Pulse Ox
99.0 F 71 16 113/60 97
07/26/23 13:54 07/26/23 13:54 07/26/23 13:54 07/26/23 13:54 07/26/23 13:54
Cardiovascular:: Regular rate and rhythm
Respiratory:: Bilateral: CTA
Lung Excursion:: Normal
Abdomen:: Nontender and Soft
Extremity Edema:: None: Left:
Mccloud Catheter: No
Other Findings::
rt BKA
--- NOTE | 2023-07-26 14:28 | W.DCSUMMARY ---
Discharge Summary
Discharge Data
Date of Admission: 07/08/23
Date of Discharge: 07/26/23
-
Pending Results: No
Hospital Course
Primary care physician : Vinnie Barbosa
Principal Discharge diagnosis : Type 2 diabetes with hypoglycemia, acute blood loss anemia, right heel wound with exposed bone and osteomyelitis
Chronic Discharge diagnosis : Recent acute kidney injury progressed to end-stage renal disease now on hemodialysis, C. difficile colitis, lumbar osteomyelitis/discitis on chronic antibiotic therapy, coronary artery disease with a history of
peripheral arterial disease status post right lower extremity stenting
Hospital Course : Patient was a 68-year-old male with a history of osteomyelitis and discitis, acute kidney injury progressed to dialysis and type 2 diabetes mellitus who presented from his shelter with hypoglycemia. He was noted to have
glucose values in the 20s to 30s despite supplemental glucagon and juice. He was given D50 by EMS and glucose increased to 165. Values in the emergency department were in the 80s. Patient remained on sulfonylureas and metformin at the nursing
home. Patient was admitted.
Problem #1: Type 2 diabetes mellitus with hypoglycemia. This was his initial admitting presentation. This was likely due to continued metformin and sulfonylureas despite patient being on dialysis. Medications have been stopped and will not be
restarted. He did receive octreotide and dextrose infusions with sliding scale insulin coverage and Accu-Cheks as needed. Hemoglobin A1c was checked on July 01, 2023 and his A1c was 5.9.
Problem #2: Acute blood loss anemia. This developed during his hospitalization and was from GI bleeding which was exacerbated by Eliquis and Plavix that he was on prior to admission. Patient was placed on a Protonix drip and GI was consulted. In
total, the patient received 8 units of packed red blood cells. EGD was without source of bleeding and colonoscopy was notable for nonthrombosed external hemorrhoids and diverticulitis in the sigmoid and descending colon. Carafate was started as
well. Patient is now off the Protonix drip and on p.o. twice daily. Eliquis had been restarted after 07/22/2023. Last blood transfusion was on hemodialysis on July 25, 2023 for hemoglobin of 7.4 which increased to 8.7 on the day of discharge.
Problem #3: Right heel wound with exposed bone and osteomyelitis. Patient had a nonhealing wound. Once GI bleeding was controlled, vascular surgery was consulted as well as infectious disease and patient did end up with a right below-knee
amputation on July 22, 2023. He was placed on IV Unasyn with oral vancomycin as he was recently here and treated for C. difficile colitis. Patient will return back to his shelter for ongoing physical therapy.
Problem #4: All other medical issues. These include Recent acute kidney injury progressed to end-stage renal disease now on hemodialysis, C. difficile colitis, lumbar osteomyelitis/discitis on chronic antibiotic therapy, coronary artery disease
with a history of peripheral arterial disease status post right lower extremity stenting. Patient was continued on dialysis while here in the hospital. These medical issues were stable during his hospitalization. Medications were continued as
able. In regards to his osteomyelitis and discitis. Patient has now been switched back to his original cefazolin dosing which we will continue on hemodialysis through 08/09/2023 along with prophylactic vancomycin 125 mg twice daily through
08/14/2023.
Patient is stable for discharge to his shelter at this time. If there are any questions regarding this dictation or his hospital stay, please not hesitate to call. Our office number is [phone].
Time for discharge 39 minutes.
Procedure findings:
EGD Impression: - LA Grade C reflux esophagitis with no bleeding in
the middle and lower third of the esophagus. .
- Small hiatal hernia.
- Normal examined duodenum.
- No specimens collected.
COLONOSCOPY Impression: - Preparation of the colon was fair.
- Non-thrombosed external hemorrhoids found on
perianal exam.
- Diverticulosis in the sigmoid colon and in the
descending colon.
- One 20 mm polyp in the sigmoid colon, removed with a
hot snare. Resected and retrieved. Clip was placed.
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
- One 3 mm polyp in the cecum, removed with a cold
snare. Complete resection. Polyp tissue not retrieved.
- Two 4 to 6 mm polyps in the ascending colon, removed
with a cold snare. Resected and retrieved.
- One 3 mm polyp in the descending colon, removed with
a cold snare. Resected and retrieved.
- External and internal hemorrhoids.
Discharge Plan
-
Patient Disposition: Senior Living/SNF
Discharge Diagnosis/Procedures: Acute blood loss anemia from GI bleeding exacerbated by Eliquis/Plavix, type 2 diabetes with hypoglycemia (initial admitting diagnosis), right heel wound with osteomyelitis status post right below-knee amputation
07/22/2023, C. difficile colitis, lumbar osteomyelitis with discitis, acute kidney injury on previous hospitalization now requiring hemodialysis, coronary artery disease with a history of peripheral arterial disease and right lower extremity stenting
Condition: Fair
Diet: 2 Gram Sodium and Diabetic, Carb Controlled
Additional Diets: 2 g potassium
Activity: As tolerated
Driving Restrictions: No driving
Bathing Restrictions: None
Activity Restrictions/Additional Instructions:
Antibiotic Instructions:
1.Continue cefazolin 2g q MoTue, 3g q qFri with dialysis through 08/09/23.
2. Continue prophylactic Vanco 125 mg po BID through 08/14/23
Wound Care Instructions
R heel: Dakin's WTD daily and prn odor
Offloading heel boot
NWB RLE
Offloading shoe per podiatry.
Follow up with Vascular and Concrete Placement Equipment Operator Danika.
Referrals:
Vinnie Barbosa MD [Family Provider] - in less than 1 week
Ana Ruiz CRNP [Specified Professional Personl] - 08/07/23 1:00 pm
Prescriptions:
New
cefazolin 10 gram Recon Soln
2 g IV MOWE@2000 Qty: 0 0RF
vancomycin [Firvanq] 50 mg/mL Recon Soln
125 mg PO Q12 Qty: 0 0RF
CeFAZolin SODIUM [Ancef] 3000 MG
Syringe [Syringe-Pump] 0 ML
180 mls/hr IV FR@1999
Ordered By: Leanna Madrid MD
Last Taken: 07/25/23 20:28 15 mls
gabapentin 100 mg Capsule
100 mg PO HD-MOWEFR Qty: 0 0RF
oxycodone 5 mg Tablet
5 mg PO Q4HPRN PRN (Reason: moderate pain) Qty: 10 0RF
famotidine 20 mg Tablet
20 mg PO Q48H Qty: 0 0RF
pantoprazole 40 mg Tablet,Delayed Release (Dr/Ec)
40 mg PO BID Qty: 0 0RF
sucralfate 100 mg/mL Suspension
1 gm PO ACHS Qty: 0 0RF
Continued
lidocaine 4 % Adhesive Patch,Medicated
1 patch TOPICAL DAILY
clopidogrel 75 mg Tablet
75 mg PO DAILY
acetaminophen 500 mg Tablet
1,000 mg PO TID
magnesium hydroxide [Milk of Magnesia] 400 mg/5 mL Suspension
30 ml PO HSPRN PRN (Reason: if no BM in 3 days)
amlodipine 10 mg Tablet
10 mg PO DAILY
bisacodyl 10 mg Suppository
10 mg VT DAILY PRN (Reason: if no results for MOM)
aspirin 81 mg Tablet,Chewable
81 mg PO DAILY
metoprolol tartrate 25 mg Tablet
25 mg PO BID
cholecalciferol (vitamin D3) 25 mcg (1,000 unit) Tablet
25 mcg PO DAILY
apixaban 2.5 mg Tablet
2.5 mg PO BID
Discontinued
metformin 500 mg Tablet
500 mg PO BID
pantoprazole 40 mg Tablet,Delayed Release (Dr/Ec)
40 mg PO DAILY
glipizide 5 mg Tablet
5 mg PO BID
oxycodone 10 mg Tablet
10 mg PO Q6H PRN (Reason: mod sev pain) Qty: 14 0RF
vancomycin 125 mg capsule
125 mg PO Q6H Qty: 90 0RF
Rx Instructions:
Four times a day till 07/13/23 THEN Twice daily until on ancef
metronidazole 500 mg tablet
500 mg PO TID Qty: 15 0RF
Rx Instructions:
last dose 07/09/23
cefazolin 2 g solution
10 ml IV MOWE
Patient Comments:
07/07/2023: give 10ml at 120ml/hr
cefazolin 3 g solution
15 ml IV FR
Patient Comments:
07/07/2023: give 15ml at 180ml/hr
Discharge Orders:
Discharge Patient (As Directed); Ordered 07/26/23
Ordered By: Leanna Madrid
Discharge Date and Time
Discharge Date/Time: 07/26/23 14:27
Print Language: SETSWANA
== END 2023-07-26 14:27 | DRG 616 ==
LOC: 3 WEST ACU 01:35
PROVIDERS: Internal Medicine; Internal Medicine Gastroenterology; Nurse Practitioner Acute Care; Nurse Practitioner Adult Health; Nurse Practitioner Family; Nurse Practitioner Gerontology; Student in an Organized Health Care Education/Training Program; ADMITTING PHYSICIAN Hospitalist; ATTENDING PHYSICIAN Internal Medicine; CONSULT PHYSICIAN Internal Medicine Gastroenterology; CONSULT PHYSICIAN Podiatrist Foot & Ankle Surgery; CONSULT PHYSICIAN Psychiatry & Neurology Psychiatry; CONSULT PHYSICIAN Specialist; CONSULT PHYSICIAN Surgery Vascular Surgery; EMERGENCY PHYSICIAN Emergency Medicine; FAMILY PHYSICIAN Internal Medicine; OTHER PHYSICIAN Student in an Organized Health Care Education/Training Program
PROC: 30233N1 Transfusion of Nonautologous Red Blood Cells into Peripheral Vein, Percutaneous Approach (ICD-10-PCS; 2023-07-09)
PROC: 5A1D70Z Performance of Urinary Filtration, Intermittent, Less than 6 Hours Per Day (ICD-10-PCS; 2023-07-09)
PROC: 0DJ08ZZ Inspection of Upper Intestinal Tract, Via Natural or Artificial Opening Endoscopic (ICD-10-PCS; 2023-07-15)
PROC: 0DBK8ZZ Excision of Ascending Colon, Via Natural or Artificial Opening Endoscopic (ICD-10-PCS; 2023-07-16)
PROC: 0DBH8ZZ Excision of Cecum, Via Natural or Artificial Opening Endoscopic (ICD-10-PCS; 2023-07-16)
PROC: 0DBN8ZZ Excision of Sigmoid Colon, Via Natural or Artificial Opening Endoscopic (ICD-10-PCS; 2023-07-16)
PROC: 0DBM8ZZ Excision of Descending Colon, Via Natural or Artificial Opening Endoscopic (ICD-10-PCS; 2023-07-16)
PROC: 0Y6H0Z2 Detachment at Right Lower Leg, Mid, Open Approach (ICD-10-PCS; 2023-07-22)
DX: E11.649 Type 2 diabetes mellitus with hypoglycemia without coma (principal); K57.31 Diverticulosis of large intestine without perforation or abscess with bleeding; A04.72 Enterocolitis due to Clostridium difficile, not specified as recurrent; M46.26 Osteomyelitis of vertebra, lumbar region; I12.0 Hypertensive chronic kidney disease with stage 5 chronic kidney disease or end stage renal disease; L97.419 Non-pressure chronic ulcer of right heel and midfoot with unspecified severity; D62 Acute posthemorrhagic anemia; E87.1 Hypo-osmolality and hyponatremia; D68.32 Hemorrhagic disorder due to extrinsic circulating anticoagulants; M86.671 Other chronic osteomyelitis, right ankle and foot; M46.28 Osteomyelitis of vertebra, sacral and sacrococcygeal region; E11.69 Type 2 diabetes mellitus with other specified complication; K44.9 Diaphragmatic hernia without obstruction or gangrene; E11.51 Type 2 diabetes mellitus with diabetic peripheral angiopathy without gangrene; K64.8 Other hemorrhoids; D12.2 Benign neoplasm of ascending colon; D12.4 Benign neoplasm of descending colon; D12.0 Benign neoplasm of cecum; D12.5 Benign neoplasm of sigmoid colon; N18.6 End stage renal disease; E11.621 Type 2 diabetes mellitus with foot ulcer; D63.1 Anemia in chronic kidney disease; M46.46 Discitis, unspecified, lumbar region; E11.22 Type 2 diabetes mellitus with diabetic chronic kidney disease; N17.9 Acute kidney failure, unspecified; I25.10 Atherosclerotic heart disease of native coronary artery without angina pectoris; G89.29 Other chronic pain; K21.00 Gastro-esophageal reflux disease with esophagitis, without bleeding; F43.20 Adjustment disorder, unspecified; K64.4 Residual hemorrhoidal skin tags; F17.200 Nicotine dependence, unspecified, uncomplicated; T45.515A Adverse effect of anticoagulants, initial encounter; Z79.01 Long term (current) use of anticoagulants; Z79.02 Long term (current) use of antithrombotics/antiplatelets; Z79.2 Long term (current) use of antibiotics; Z79.82 Long term (current) use of aspirin; Z79.84 Long term (current) use of oral hypoglycemic drugs; Z79.891 Long term (current) use of opiate analgesic; Z79.899 Other long term (current) drug therapy; Z86.61 Personal history of infections of the central nervous system; Z99.2 Dependence on renal dialysis; Z95.820 Peripheral vascular angioplasty status with implants and grafts
CPT/HCPCS: 88305; 88307; 88311; 27880; 71045; 73630; 74019; 74174; 80048; 80051; 80053; 82728; 82962; 83540; 83550; 83735; 85014; 85018; 85025; 85027; 85610; 85730; 86850; 86900; 86901; 86920; 87324; 87449; 93005; 97112; 97162; 97164; 97168; 97530; 99285; G0257; P9016; P9047; Q5106; Q9967

== ENCOUNTER 2023-08-22 16:25 | Inpatient (IN) | payer MEDICARE, MEDICAID, SELFPAY ==
[2023-08-22 12:09] VITALS: BMI 25.6
[2023-08-22 12:10] VITALS: BP 92/60
--- NOTE | 2023-08-22 13:29 | ED.GENMED ---
History of Present Illness
General
Chief Complaint: Skin Problem
Time Seen by Provider: 08/22/23 12:39
History of Present Illness
History of Present Illness:
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 Patient presents from the office for follow-up where wound was
found to probe to bone, sent to the emergency department with plan for admission and antibiotics vascular surgery management. Patient also missed hemodialysis today. On arrival to the hospital, patient notes that his wound has been dehisced for
the past 2 weeks. Notes slight pain with movement. Denies fever. Denies chest pain or difficulty breathing. Denies any abdominal pain. Notes chronic back pain, denies any acute features. Denies any additional acute medical complaints
Past History
Past History
ED Past Medical History: HTN, NIDDM, Renal failure, Other (Anemia) and Other (Metabolic encephalopathy, hyponatremia)
ED Past Surgical History: Orthopedic (Laminectomy)
Social History
Tobacco: Non-smoker
Alcohol: None
Drug: None
Living: assisted
Phy Exam
Physical Exam
Physical Exam:
General: Well-appearing, no clinical signs of dehydration, nontoxic and in no acute distress
HEENT: protecting airway
Neck: appears supple
CV: Normal heart rate, regular rhythm, no evidence of cyanosis
Resp: No accessory muscle use, no increased work of breathing, lungs clear to auscultation bilaterally
Abd: Soft and non-distended, no tenderness to palpation, normal bowel sounds
Extremities: Status post right BKA. Slight dehiscence of wound at the lateral aspect with mild erythema
Neuro: alert, no focal neurologic deficit
: deferred
Rectal: deferred
Psych: Normal affect
Skin: Intact
Course
Orders/Labs/Results
Orders:
Orders
08/22/23 13:03
Electrocardiogram (*1) Urgent
Reason for Study: Other
Other Reason for Exam: missed HD
EKG- Treatment ONCE
CR Chest Portable - 1 View Urgent
Comment:
Reason For Exam: missed HD
Reason Study Needs to be Portable: Unable to Transport
08/22/23 13:21
CT Lower Ext W/o Iv Cont Rt Urgent
Comment: RLE non cont CT for collection
Reason For Exam: r.o deep collection
US Periph Art LOWER Ext Ltd Urgent
Comment: Right only, no CHUN or TBI
Reason For Exam: check common femoral patency
08/22/23 13:25
NEPHROLOGY CONSULT Routine
Consulting Provider: Tyrese Dunn V.
Was physician already notified: Yes
Reason for consult: HD
08/22/23 13:37
Type+Screen Urgent
Complete Blood Count/With Diff Urgent
Comprehensive Metabolic Panel Urgent
PTT Urgent
Prothrombin Time Urgent
08/22/23 13:59
Hemodialysis treatment As Directed
Treatment date:: 08/23/23
Treatment type: Hemodialysis
Ultrafiltration (kg): 1-2kg
Treatment time (duration): 3 hours 30 minutes
Use dialysis access:: Tunneled Cath
Dialyzer:: Optiflux 180
Blood flow rate minimum: 350
Blood flow rate maximum: 400
Dialysis flow rate: 600 mL/min
Dialysate temperature: 37 degrees Celsius
Sodium (Na): 137
Potassium (K): 3
Calcium (Ca): 2.5
Bicarbonate (HCO3): 37
08/23/23 08:00
Epoetin Pedrito-Epbx [Retacrit] 10,000 units IV HD-ONCE ONE
Heparin See Dose Instructions INTRACATH HD-ONCE ONE
Mannitol 25% 12.5 grams IV HD-Q1HPRN PRN
Sodium Chloride [Sodium Chloride 4 Meq/ml For Hemodialysis] 10 ml IV HD-Q1HPRN PRN
Abnormal Lab Results
08/22/23
13:37
RBC 2.50 L 10^6/uL
(4.70-6.10)
Hgb 7.2 L g/dL
(13.0-18.0)
Hct 22.5 L %
(39.0-52.0)
MCHC 32.0 L g/dL
(33.0-37.0)
RDW 15.4 H %
(11.5-14.5)
Plt Count 558 H 10^3/uL
(130-400)
Absolute Lymphs (auto) 1.1 L 10^3/uL
(1.2-3.4)
Absolute Monos (auto) 0.7 H 10^3/uL
(0.1-0.6)
Lymphocytes % 13.8 L %
(20.5-51.1)
PT 18.0 H Sec
(11.4-14.6)
APTT 57.5 H Sec
(23.4-35.0)
Sodium 131 L mmol/L
(135-145)
BUN 26 H mg/dl
(9-20)
Creatinine 3.9 H mg/dL
(0.7-1.3)
AST 13 L U/L
(17-59)
Alkaline Phosphatase 127 H U/L
(38-126)
Total Protein 6.0 L g/dl
(6.3-8.2)
Albumin 2.8 L g/dl
(3.5-5.0)
08/22/23 13:37
08/22/23 13:37
Vital Signs
Initial and Last Documented VS:
Initial Vital Signs
Temp Pulse Resp BP Pulse Ox
97.9 F 80 18 92/60 100
08/22/23 12:10 08/22/23 12:10 08/22/23 12:10 08/22/23 12:10 08/22/23 12:10
Last Documented Vital Signs
Temp Pulse Resp BP Pulse Ox
97.9 F 80 18 119/75 98
08/22/23 12:10 08/22/23 12:10 08/22/23 12:10 08/22/23 15:14 08/22/23 15:30
MDM/Problems Addressed
MDM/Problems Addressed:
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 Vitals significant for mildly low blood pressure.
On exam, patient resting comfortably, no acute distress. He is nontoxic in appearance. On examination of the right BKA site, does appear to be infected, mild dehiscence of wound, open with erythema. Vascular team aware. Plan for labs, admission,
ID consultation right lower extremity imaging. Patient will also require nephrology consultation, missed hemodialysis today. No signs of volume overload. No acute respiratory distress.
15:30 -patient's labs without evidence of elevated WBC. Hemoglobin is 7.2, baseline anemia. Nephrology consulted for hemodialysis needs. Vascular surgery aware. CT of the extremity without overt signs of osteomyelitis. Will discuss with
infectious disease regarding antibiotic recommendations given complicated history.
*Critical Care Note
Total Time (30-74mins, 75-104mins- exclusive of procedures): Not Applicable
ED Attending Note
-
Portions of this chart may have been created with voice recognition software.� Occasional wrong word or��sound alike� substitutions may have occurred due to the inherent limitations of voice recognition software.
Discharge Plan
Departure
Patient Disposition: Admit
Date of Disposition: 08/22/23
Time of Disposition: 15:36
Admit to doctor: Selena
Presentation/result/management discussed w/ accepting MD/DO: Hospitalist
Patient with high blood pressure during this ER visit?: No
Condition: Good
Discharge Problem:
Infected wound, Hx of right BKA
Prescriptions:
No Action
lidocaine 4 % Adhesive Patch,Medicated
1 patch TOPICAL DAILY
clopidogrel 75 mg Tablet
75 mg PO DAILY
acetaminophen 500 mg Tablet
1,000 mg PO TID
magnesium hydroxide [Milk of Magnesia] 400 mg/5 mL Suspension
30 ml PO HSPRN PRN (Reason: if no BM in 3 days)
amlodipine 10 mg Tablet
10 mg PO DAILY
bisacodyl 10 mg Suppository
10 mg [place] DAILY PRN (Reason: if no results for MOM)
aspirin 81 mg Tablet,Chewable
81 mg PO DAILY
metoprolol tartrate 25 mg Tablet
25 mg PO BID
cholecalciferol (vitamin D3) 25 mcg (1,000 unit) Tablet
25 mcg PO DAILY
apixaban 2.5 mg Tablet
2.5 mg PO BID
cefazolin 10 gram Recon Soln
2 g IV MOWE@1999 Qty: 0 0RF
vancomycin [Firvanq] 50 mg/mL Recon Soln
125 mg PO Q12 Qty: 0 0RF
CeFAZolin SODIUM [Ancef] 3000 MG
Syringe [Syringe-Pump] 0 ML
180 mls/hr IV FR@1999
Ordered By: Leanna Madrid MD
Last Taken: Unknown
gabapentin 100 mg Capsule
100 mg PO HD-MOWEFR Qty: 0 0RF
oxycodone 5 mg Tablet
5 mg PO Q4HPRN PRN (Reason: moderate pain) Qty: 10 0RF
famotidine 20 mg Tablet
20 mg PO Q48H Qty: 0 0RF
pantoprazole 40 mg Tablet,Delayed Release (Dr/Ec)
40 mg PO BID Qty: 0 0RF
sucralfate 100 mg/mL Suspension
1 gm PO ACHS Qty: 0 0RF
Referrals:
NONE,* [Family Provider] -
Interventions
Interventions:
*Risk Screen - Suicide Last Done: 08/22/23 15:25
*General Assessment Last Done: 08/22/23 12:10
*Neglect/Abuse Screening Last Done: 08/22/23 15:25
ED- Fall Risk Assessment Last Done: 08/22/23 15:25
*ED COVID-19 Vaccine History Last Done: 08/22/23 12:10
ED-Skin Assessment Last Done: 08/22/23 15:25
Discharge Date and Time
Print Language: AUSTRALIAN
--- NOTE | 2023-08-22 13:32 | W.PN.UPDATE ---
Update Note
Progress Note Update
Vascular Consultation:
Plan:
-Admit to Hospitalist
-Nephrology for HD management
-Arterial US RLE (no CHUN) to assess common fem
-CT noncontrast RLE to r/o deep collection
-Hold eliquis
-IV antibiotics
-Likely add on to friday's OR schedule for washout/revision
--- NOTE | 2023-08-22 13:45 | W.CON.NEPH ---
Consultation
-
Date/Time Consultation Requested: 08/22/2023 1:30 PM
Date/Time Consultation Performed: 08/22/2023 1:45 PM
Requesting Provider: Dr. Gutierrez
Performing Provider: Dr. Dunn
Reason for Consultation: End-stage renal disease
Medical History
-
Chief Complaint: End-stage renal disease
History of Present Illness:
Mr. Hairston is a 68YOM with PMH of LUIS ANGEL resulting in ESRD on HD MWF, chronic anemia, PAD (chronic R heel wound who underwent right BKA on 07/23/2023), diabetes, laminectomy for epidural abscess, chronic pain (on opioids). He had previously been at "[facility] where he was treated for L2-L3 epidural abscess and discitis as well as a psoas abscess. he underwent lumbar laminectomy and drainage on 06/12 at [facility]. He developed an LUIS ANGEL requiring HD. LUIS ANGEL was thought to be 2/2 to post infectious GN
vs. ATN. He then presented to [facility] 07/17/23 with further complications with his right lower extremity heel wound and eventually underwent right BKA on 07/23/23.He presents to ER for concern of infection to the right BKA incision site.
Patient presents from the office for follow-up where wound was found to probe to bone, sent to the emergency department with plan for admission and antibiotics vascular surgery management. Patient also missed hemodialysis today. [facility] patient notes that his wound has been dehisced for the past 2 weeks. Notes slight pain with movement. Denies fever. Denies chest pain or difficulty breathing. Denies any abdominal pain. Notes chronic back pain, denies any acute
features. Nephrology was consulted for his end-stage renal disease.
Past Medical History
LUIS ANGEL (now HD)
ESRD
chronic anemia
PAD (chronic R heel wound) status post right BKA on 07/23/2023
diabetes
laminectomy for epidural abscess
chronic pain (on opiods)
GERD
HTN
History of C. difficile colitis
Past Medical History: Other
Past Surgical History: Other (laminectomy)
Social History
Tobacco: Non-Smoker
Alcohol: None
Drug: None
Living: Longterm
Family History
Family History: Not Pertinent
Allergies / Home Medications
Allergy/AdvReac Type Severity Reaction Status Date / Time
No Known Allergies Allergy Verified 08/22/23 12:14
�Medication �Instructions �Recorded �Confirmed �Type
acetaminophen 500 mg tablet 1,000 mg PO TID Pain 06/29/23 07/07/23 History
amlodipine 10 mg tablet 10 mg PO DAILY Blood Pressure 06/29/23 07/07/23 History
apixaban 2.5 mg tablet 2.5 mg PO BID Blood Clot 06/29/23 07/07/23 History
Prevention/Tx
aspirin 81 mg chewable tablet 81 mg PO DAILY Blood Clot 06/29/23 07/07/23 History
Prevention/Tx
bisacodyl 10 mg rectal suppository 10 mg [place] DAILY PRN if no results 06/29/23 07/07/23 History
for MOM
cholecalciferol (vitamin D3) 25 25 mcg PO DAILY Supplement 06/29/23 07/07/23 History
mcg (1,000 unit) tablet
clopidogrel 75 mg tablet 75 mg PO DAILY Blood Clot 06/29/23 07/07/23 History
Prevention/Tx
lidocaine 4 % topical patch 1 patch topical DAILY lower back 06/29/23 07/07/23 History
magnesium hydroxide 400 mg/5 mL 30 ml PO HSPRN PRN if no BM in 3 06/29/23 07/07/23 History
oral suspension (Milk of Magnesia) days
metoprolol tartrate 25 mg tablet 25 mg PO BID Blood Pressure 06/29/23 07/07/23 History
CeFAZolin SODIUM [Ancef] 3,000 mg 180 mls/hr IV FR@199907/26/23 Rx
cefazolin 10 gram solution for 2 g IV MOWE@1999 #0 ea 07/26/23 Rx
injection
famotidine 20 mg tablet 20 mg PO Q48H #0 tabs 07/26/23 Rx
gabapentin 100 mg capsule 100 mg PO HD-MOWEFR #0 caps 07/26/23 Rx
oxycodone 5 mg tablet 5 mg PO Q4HPRN PRN moderate pain 07/26/23 Rx
#10 tabs
pantoprazole 40 mg tablet,delayed 40 mg PO BID #0 tabs 07/26/23 Rx
release
sucralfate 100 mg/mL oral 1 gm PO ACHS #0 mL 07/26/23 Rx
suspension
vancomycin 50 mg/mL oral solution 125 mg (2.5 mL) PO Q12 #0 mL 07/26/23 Rx
(Firvanq)
Review of Systems
-
History Source: Patient
All other systems: Negative unless noted
Constitutional: No Symptoms
EENT: No Symptoms
Respiratory: No Symptoms
Cardiac: No Symptoms
Abdomen/GI: No Symptoms
: No Symptoms
Musculoskeletal: Other (Right stump site infection with some pain)
Skin: No Symptoms
Neurological: No Symptoms
Endocrine: No Symptoms
Hematologic/Lymphatic: Other (Tunneled right IJ catheter)
Physical Exam
Vital Signs
Vital Signs
Temp Pulse Resp BP Pulse Ox
97.9 F 80 18 92/60 100
08/22/23 12:10 08/22/23 12:10 08/22/23 12:10 08/22/23 12:10 08/22/23 12:10
Lab Results
CBC and BMP
Physical Exam
General: AOx3, Nontoxic , NAD
HEENT: PERRL, EOMI, Anicteric, Conjunctivae Clear, Ear/Nose Intact, Hearing Normal, Oropharynx Clear/Moist, Dentition Intact, Facial Symmetry, Neck Supple, Neck: Trachea Midline, No JVD and No Thyromegaly, no Bruits
Respiratory: Clear to auscultation bilaterally with normal lung excursion
Cardiac: S1/S2 and Regular Rate/Rhythm
Breast: Deferred by me
Abdomen: Soft, Nontender, Nondistended, Normal Bowel Sounds and No Hepatosplenomegaly
Rectal: Deferred by Provider
Genito-urinary: No Costovertebral Tenderness
Extremities: No Clubbing, No Cyanosis and No Edema, RIGHT BKA ecthymatous borders along stump site
Skin: No Rash or jaundice
Neuro: Nonfocal/Grossly Intact, CN II-XII (Intact) and Strength (Musculoskeletal exam 5 out of 5 both upper and lower extremities)
Hematologic/Lymphatic: No Cervical Lymphadenopathy, No Submandibular Lymphadenopathy and No Supraclavicular Lymphadenopathy
Psych: Mood/afflect pleasant, Insight/judgement good and Appropriate
Vascular: plus 1 pedal and radial pulses
Vascular Access: CVC (Right tunneled IJ catheter)
Data Reviewed
-
Medical Tests (Nuc Med, Echo etc): Other (EKG personally reviewed atrial fibrillation rhythm)
Labs: Labs Reviewed by me (BMP CBC)
Old Records: Reviewed (Reviewed previous consultation for end-stage renal disease as well as hospital notes from July 2023)
Assessment/Plan
-
Impression:
Infected right BKA stump (was discharged on 07/26/23 on vancomycin and cefazolin)
Tunneled right IJ catheter
End-stage renal disease Friday at [place]
History of hypertension now hypotensive
Atrial fibrillation
Anemia
Peripheral vascular disease
Diabetes
History of epidural abscess and psoas abscess
Plan:
-HD likely tomorrow, will provide orders
-Will review admission lab work to decide on acuity for need of urgent dialysis
-Does not examine volume overloaded
-Maximize SARTHAK for anemia on dialysis
-1500 cc fluid restriction on admission, low potassium and low sodium renal diet
-Infectious disease to see patient and recommend antibiotic therapy
-For likely I&D by vascular surgery on 08/25/2023 of stump site
-
[2023-08-22 14:01] LABS: % Basophils 0.5 % (0-2); % Eosinophils 2.1 % (0-6); % Immature Granulocytes 0.5 % (0-0.5); % Lymphocytes 13.8 % (20.5-51.1); % Neutrophils 74.1 % (42.2-75.2); Absolute Eosinophils 0.2 10^3/uL (0-0.7); Absolute Lymphocytes 1.1 10^3/uL (1.2-3.4); Absolute Monocytes 0.7 10^3/uL (0.1-0.6); Absolute Neutrophils 5.7 10^3/uL (1.4-6.5); Hematocrit 22.5 % (39.0-52.0); Hemoglobin 7.2 g/dL (13.0-18.0); Mean Corpuscular Hgb 28.8 pg (27.0-31.0); Mean Platelet Volume 8.4 fL (7.4-10.4); Nucleated Red Blood Cells % 0 % (-); Platelet Count 558 10^3/uL (130-400); Red Cell Dist. Width 15.4 % (11.5-14.5); White Blood Cell Count 7.7 10^3/uL (4.8-10.8)
[2023-08-22 14:32] LABS: ALT (SGPT) < 10 U/L (0-50); AST (SGOT) 13 U/L (17-59); Albumin 2.8 g/dl (3.5-5.0); Alkaline Phosphatase 127 U/L (38-126); Blood Urea Nitrogen 26 mg/dl (9-20); Calcium 8.9 mg/dl (8.4-10.2); Carbon Dioxide 24 mmol/L (22-30); Chloride 98 mmol/L (98-107); Estimated Creatinine Clearance 21 ml/min; Glucose 99 mg/dl (70-99); Potassium 4.4 mmol/L (3.5-5.1); Sodium 131 mmol/L (135-145); Total Bilirubin 0.7 mg/dl (0.2-1.3); eGFR 16.21
--- NOTE | 2023-08-22 14:51 | VATNOTE ---
Per ID notes, cefazolin course completed 08/08 and vancomycin course completed 08/13. Unknown date of L midline placement and unneeded at this time. Removed. Catheter appears in-tact on removal, total catheter length 12 cm.
[2023-08-22 14:57] LABS: INR 1.51
[2023-08-22 14:58] LABS: APTT 57.5 Sec (23.4-35.0)
[2023-08-22 15:14] VITALS: BP 119/75
--- NOTE | 2023-08-22 15:24 | HPS.HSE ---
Addendum entered and electronically signed by Curt Walters MD 08/22/23 19:05:
Underwent RLE BKA 07/22/23, sent to ER by Vasc Surg for apparent wound infection
Pt seen independently and agree with [employer] note
Lungs clear
CV reg
Abd soft, nontender with good BS
Ext s/p Rt BKA with infectious changes involving wound site
Imp: post op wound infection
ASPVD
ESRD
recent C.Diff colitis
Type 2 NIDDM
P:empiric abx
oral Vanco for prophylaxis Tx for C. Diff
consult Inf Dis, Vasc Surg, Nephro
Original Note:
Family Physician
-
Family Physician: * NONE
Chief Complaint
-
Right stump infection
History of Present Illness
68-year-old with past medical history for diabetes, GERD, hypertension, peripheral artery disease, lumbar osteomyelitis, psoas abscess chronic indwelling Mccloud catheter, chronic right heel wound presented to us with right stump infection. Patient
underwent right lower extremities amputation on 07/2023. Patient stated with the drainage which requires frequent dressing changes. Patient denied any fever, chills, chest pain, short of breath. Patient denied any headache, dizziness, syncopal
episode. Patient denies any abdominal pain, nausea, vomiting, diarrhea. Patient denies dysuria hematuria.
Medical History
Past Medical History
Past Medical History: Reports Other
Additional Past Medical History:
Discitis
Diverticulosis
Hypertension
GERD
Depression
End-stage renal disease
Osteomyelitis
Peripheral vascular disease
Type 2 diabetes
C. difficile colitis
GI bleed
Past Surgical History: Reports Other
Additional Past Surgical History:
Right BKA
Social History
Tobacco: Non-smoker
Alcohol: None
Drug: None
Living: Long Term
Family History
Family History: Not pertinent
Allergies / Home Medications
Allergies reflects when Allergies were last updated in [facility].
Home Medications with original date entered in [facility]
Allergy/Medication List:
Allergies
Allergy/AdvReac Type Severity Reaction Status Date / Time
No Known Allergies Allergy Verified 08/22/23 12:14
Home Medications
acetaminophen 500 mg tablet 1,000 mg PO TID Pain 06/29/23
amlodipine 10 mg tablet 10 mg PO DAILY Blood Pressure 06/29/23
apixaban 2.5 mg tablet 2.5 mg PO BID Blood Clot Prevention/Tx 06/29/23
aspirin 81 mg chewable tablet 81 mg PO DAILY Blood Clot Prevention/Tx 06/29/23
bisacodyl 10 mg rectal suppository 10 mg [place] DAILY PRN if no results for MOM 06/29/23
cholecalciferol (vitamin D3) 25 mcg (1,000 unit) tablet 25 mcg PO DAILY Supplement 06/29/23
clopidogrel 75 mg tablet 75 mg PO DAILY Blood Clot Prevention/Tx 06/29/23
lidocaine 4 % topical patch 1 patch topical DAILY lower back 06/29/23
magnesium hydroxide 400 mg/5 mL oral suspension (Milk of Magnesia) 30 ml PO HSPRN PRN if no BM in 3 days 06/29/23
metoprolol tartrate 25 mg tablet 25 mg PO BID Blood Pressure 06/29/23
CeFAZolin SODIUM [Ancef] 3,000 mg 180 mls/hr IV FR@199907/26/23
cefazolin 10 gram solution for injection 2 g IV MOWE@1999 #0 ea 07/26/23
famotidine 20 mg tablet 20 mg PO Q48H #0 tabs 07/26/23
gabapentin 100 mg capsule 100 mg PO HD-MOWEFR #0 caps 07/26/23
oxycodone 5 mg tablet 5 mg PO Q4HPRN PRN moderate pain #10 tabs 07/26/23
pantoprazole 40 mg tablet,delayed release 40 mg PO BID #0 tabs 07/26/23
sucralfate 100 mg/mL oral suspension 1 gm PO ACHS #0 mL 07/26/23
vancomycin 50 mg/mL oral solution (Firvanq) 125 mg (2.5 mL) PO Q12 #0 mL 07/26/23
Review of Systems
-
Constitutional: Reports No Symptoms
EENT: Reports No Symptoms
Respiratory: Reports No Symptoms
Cardiac: Reports No Symptoms
Abdomen/GI: Reports No Symptoms
: Reports No Symptoms
Musculoskeletal: Reports No Symptoms
Skin: Reports Other (Right BKA stump infection)
Neurological: Reports No Symptoms
Endocrine: Reports No Symptoms
Hematologic/Lymphatic: Reports No Symptoms
Psych: Reports No Symptoms
Physical Exam
Vital Signs
Vital Signs
Temp Pulse Resp BP Pulse Ox
97.9 F 80 18 92/60 100
08/22/23 12:10 08/22/23 12:10 08/22/23 12:10 08/22/23 12:10 08/22/23 12:10
Physical Exam
General: Well Developed, Well Nourished and No Apparent Distress
HEENT: NormoCephalic, Moist mucous membranes and Atraumatic
Respiratory: Clear
Cardiac: S1/S2 and Regular Rhythm; No Murmur or Rub
GI: Soft, Non Tender, Non Distended and Normal Bowel Sounds; No Organomegaly
Rectal: Deferred by Provider
Musculoskeletal: No Clubbing, No Cyanosis and No Edema
Skin: Other (Right BKA, dehiscence of wound at the lateral aspect with erythema)
Neuro: AO x 3 and Nonfocal/grossly intact
Psych: Calm
Laboratory Results
-
08/22/23 13:37
08/22/23 13:37
Laboratory Results
PT 18.0 Sec (11.4-14.6) H 08/22/23 13:37
INR 1.51 08/22/23 13:37
APTT 57.5 Sec (23.4-35.0) H 08/22/23 13:37
Total Bilirubin 0.7 mg/dl (0.2-1.3) 08/22/23 13:37
AST 13 U/L (17-59) L 08/22/23 13:37
ALT < 10 U/L (0-50) 08/22/23 13:37
Alkaline Phosphatase 127 U/L (38-126) H 08/22/23 13:37
Data Reviewed
-
CT Scan: Report Reviewed by me
Lab Data: Labs Reviewed by me
Impression/Plan
-
# Stump infection /recent right BKA
-ID consult
-Vascular consult
-Lower extremity CT with impression of Postsurgical changes from prior below knee amputation without evidence of acute osteomyelitis or fluid collection. There are superficial skin cesario with cutaneous defect along the lateral aspect of the distal
stump.
-Likely IND by vascular surgery on 08/25/20192023 of stump site
-Arterial ultrasound of right lower extremity is pending
-Continue to hold Eliquis
- iv Zosyn continued
-oral vanco prophylactically to prevent C Diff infection.
-Wound culture sent from ER
# End-stage renal disease on dialysis/hyponatremia
-Friday
-100 fluid restriction
-Nephrology consulted
# Anemia of chronic disease
-Hemoglobin stable at 7.2
-No active bleeding
-Continue to monitor
# recent C. Diff Colitis
-finish the course of vano (08/11/2023)
-oral vanco initiated to prevent C diff infection
#Lumbar Osteomyelitis/Discitis
-was on Ancef until 08/08
#CAD: h/o PAD s/p RLE stenting
-hold eliquis, Plavix
-Aspirin continued
# Essential hypertension
-Norvasc continue with parameters
# GERD
-PPI continued
# Hypotension
-Midodrine continued
#DVT prophylaxis
-SCD
#CODE status
-full code
[2023-08-22 16:00] VITALS: BP 108/57
[2023-08-22] MEDS: ZOSYN 50 IV ×2 (16:18→21:49)
[2023-08-22] MEDS: FIRVANQ 125 MG PO ×2 (16:28→21:49)
[2023-08-22 17:00] VITALS: BP 119/79
[2023-08-22 17:36] VITALS: BP 107/74
[2023-08-22] MEDS: ROXICODONE 5 MG PO ×2 (18:02→22:03)
--- NOTE | 2023-08-22 18:37 | PTCARENOTE ---
pt brought up from the ED to 2134 this evening. pt oriented to the room and call light. pt aaox3, states he does urinate still despite on HD and he is wheelchair bound at the facility. pt states he fell last week and that is what the ecchymotic
bruising on his L side is from. pt has a R BKA and came in due to it being infected. pt on cholesterol lowering diet with fluid restriction and is due for HD tomorrow.
--- NOTE | 2023-08-22 18:38 | PTCARENOTE ---
pt received prn linda for severe stump pain. See MAR for proper charting at this time.
[2023-08-22] MEDS: LOPRESSOR 25 MG PO (20:35)
[2023-08-22] MEDS: PROTONIX 40 MG PO (20:35)
[2023-08-22] MEDS: PEPCID 20 MG PO (21:49)
[2023-08-22] MEDS: FLUSH (NSS) 2 FLUSH IV (21:51)
[2023-08-22 23:13] VITALS: BP 117/74
[2023-08-23] MEDS: ROXICODONE 5 MG PO ×4 (02:29→21:46)
[2023-08-23] MEDS: ZOSYN 50 IV ×4 (03:04→21:30)
[2023-08-23] MEDS: FIRVANQ 125 MG PO ×4 (03:04→21:30)
[2023-08-23] MEDS: FLUSH (NSS) 2 FLUSH IV ×2 (03:05→21:30)
[2023-08-23 03:16] VITALS: BMI 23.2
[2023-08-23 06:00] VITALS: BMI 23.2
[2023-08-23 07:45] VITALS: BP 132/76
--- NOTE | 2023-08-23 08:55 | CON.ID ---
Addendum entered and electronically signed by Alison Barth MD 08/23/23 12:59:
MRSA screen negative
follow up wound cultures
Original Note:
Consultation
-
Date/Time Consultation Requested: 08/22/23 17:29
Date/Time Consultation Performed: 08/22/23 9:00
Requesting Provider: Roberto cisse
Performing Provider: Dr barth
Reason for Consultation: Right stump infection
Chief Complaint / Past History
Chief Complaint
Right stump infection
History of Present Illness
Mr Hairston is a 68 year old male with history of ESRD on HD, lumbar osteomyelitis/psoas abscess due to MSSA, colonization with C difficile, s/p amputation of the RLE on 07/22/23 for gangrene of the right heel no presenting for right BKA site
infection with probe to bone. He was seen in the vascular surgery office where there was wound breakdown probing to bone and murky drainage. Wound dehisced 2 weeks ago, there is mild pain with movement. No fevers. No: chest pain, shortness of
breath, abdominal pain. Chronic back pain is unchanged. Missed HD on the day of arrival.
Since arrival here he has been afebrile, bp stable, wbc initially 7.7, hgb 7.2, plt 558 (previous thrombocytosis also noted), no L shift, K 4.4, cr 3.9, t bili 0.7, ast 13, alt <10, alk phos 127, CT r lower ext without contrast: Postsurgical changes
from prior below knee amputation without evidence of acute osteomyelitis or fluid collection. There are superficial skin cesario with cutaneous defect along the lateral aspect of the distal stump, lower ext us: Patent right common femoral artery
with normal triphasic waveform, CXR: Mild interstitial pulmonary edema. a wound culture from the ER showed many wbc, rare GNR, rare GPCs, note possible washout/revision friday. currently on vanc/zosyn.
Past History
Additional Past Medical History:
ESRD on HD
PAD/PVD
Chronic anemia
Metabolic encephalopathy
Hyponatremia
NIDDM
Past sepsis from laminectomy
Essential HTN
Chronic pain on opioids
GERD
Additional Past Surgical History:
R BKA
Laminectomy 06/13/23
R [employer]-PT bypass with PTFE
Allergy History:
No Known Allergies Allergy (Verified 08/22/23 12:14)
Medications Reviewed: Yes
Social History
Tobacco: Non-Smoker
Alcohol: None
Drug: None
Family History
Family History: Not Pertinent
Review of Systems
Review of Systems
General: Negative Fever or Chills
All systems: All other systems were reviewed and were negative
Vital Signs
Temp Pulse Resp BP Pulse Ox
97.9 F 104 14 132/76 97
08/23/23 07:45 08/23/23 07:45 08/23/23 07:45 08/23/23 07:45 08/23/23 07:45
Physical Exam
Physical Exam
Constitutional: No Acute Distress and Chronically Ill
Cardiovascular: Regular Rate and S1/S2; Negative Murmur or Rub
Pulmonary: Clear and Symmetric; Negative Wheezes, Rales or Rhonchi
Gastrointestinal: Soft, Non Tender, Non Distended and Normal Bowel Sounds
Skin: Warm and Dry; Negative Rash or Jaundice
Wound: Other (purulent drainage from the mid surgical site - stitch visible, probes about 6 cm deep to bone)
Lab / Diagnostic Study Results
Abs Immat Gran (auto) 0.0 10^3/uL (0-0.05) 08/22/23 13:37
Absolute Neuts (auto) 5.7 10^3/uL (1.4-6.5) 08/22/23 13:37
Absolute Lymphs (auto) 1.1 10^3/uL (1.2-3.4) L 08/22/23 13:37
Absolute Monos (auto) 0.7 10^3/uL (0.1-0.6) H 08/22/23 13:37
Absolute Basos (auto) 0.0 10^3/uL (0-0.2) 08/22/23 13:37
Immature Gran % 0.5 % (0-0.5) 08/22/23 13:37
Neutrophils % 74.1 % (42.2-75.2) 08/22/23 13:37
Lymphocytes % 13.8 % (20.5-51.1) L 08/22/23 13:37
Monocytes % 9.0 % (1.7-9.3) 08/22/23 13:37
Eosinophils % 2.1 % (0-6) 08/22/23 13:37
Basophils % 0.5 % (0-2) 08/22/23 13:37
PT 18.0 Sec (11.4-14.6) H 08/22/23 13:37
INR 1.51 08/22/23 13:37
Microbiology Results
Micro:
08/22/23 16:22 Wound Culture - Pending
Leg - Right Gram Stain - Preliminary
Assessment / Plan
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
- if fever over 101.0 then please send blood culture, at this time low yield from blood culture
- wound culture in progress - will follow up
- mrsa screen
- please sent cultures aerobic and anaerobic from the OR
- will follow up OR note
- continue zosyn, final antibiotic selection and duration pending clinical course
- follow clinically
Colonization with C difficile
- continue oral vancomycin while on broad spectrum rx
[2023-08-23] MEDS: LIDOCAINE 4% PATCH 1 PATCH TOPICAL (09:12)
[2023-08-23] MEDS: PROTONIX 40 MG PO ×2 (09:12→19:43)
[2023-08-23] MEDS: NORVASC 10 MG PO (09:13)
[2023-08-23] MEDS: VITAMIN D3 (cholecalciferol) 25 MCG PO (09:13)
[2023-08-23] MEDS: LOW STRENGTH ASPIRIN 81 MG PO (09:13)
[2023-08-23] MEDS: PLAVIX 75 MG PO (09:14)
[2023-08-23] MEDS: LOPRESSOR 25 MG PO (09:15)
[2023-08-23 10:24] LABS: Hematocrit 23.8 % (39.0-52.0); Hemoglobin 7.5 g/dL (13.0-18.0); Mean Corp Hgb Conc. 31.5 g/dL (33.0-37.0); Mean Corpuscular Hgb 28.7 pg (27.0-31.0); Mean Corpuscular Volume 91.2 fL (80.0-94.0); Mean Platelet Volume 8.6 fL (7.4-10.4); Platelet Count 581 10^3/uL (130-400); Red Blood Cell Count 2.61 10^6/uL (4.70-6.10); White Blood Cell Count 8.5 10^3/uL (4.8-10.8)
[2023-08-23 11:10] LABS: Blood Urea Nitrogen 31 mg/dl (9-20); Carbon Dioxide 22 mmol/L (22-30); Chloride 98 mmol/L (98-107); Estimated Creatinine Clearance 20 ml/min; Glucose 91 mg/dl (70-99); Potassium 4.3 mmol/L (3.5-5.1); Sodium 131 mmol/L (135-145); eGFR 14.42
--- NOTE | 2023-08-23 11:12 | W.PN.VS ---
Today's Communication / Plan
-
OR friday
Assessment/Plan
-
wound on bka
plan for debridement or revision to aka friday
antbx over weekend
npo evi night
Subjective Data
-
Date of Service: August 23, 2023
doing well
would like to be able to just rest this weekend without interuption
Objective Data
-
Vital Signs
Temp Pulse Resp BP Pulse Ox
97.9 F 104 14 132/76 97
08/23/23 07:45 08/23/23 09:15 08/23/23 07:45 08/23/23 09:15 08/23/23 07:45
Intake and Output
08/22/23 08/23/23 08/24/23
06:59 06:59 06:59
Intake Total 340 / 340
Output Total 700 / 700
Balance -360 / -360
Intake:
Oral fluids 240 / 240
IV piggybacks 100 / 100
Output:
Urine, Voided 700 / 700
Lab Results
08/23/23 09:40
08/23/23 09:40
Calcium 9.0 mg/dl (8.4-10.2) 08/23/23 09:40
Total Bilirubin 0.7 mg/dl (0.2-1.3) 08/22/23 13:37
AST 13 U/L (17-59) L 08/22/23 13:37
ALT < 10 U/L (0-50) 08/22/23 13:37
Alkaline Phosphatase 127 U/L (38-126) H 08/22/23 13:37
Total Protein 6.0 g/dl (6.3-8.2) L 08/22/23 13:37
Albumin 2.8 g/dl (3.5-5.0) L 08/22/23 13:37
Physical Exam
-
rrr
ctab
dresing intact
no drainage
[2023-08-23 11:18] LABS: Glucose - Point of Care 128 mg/dl (70-99)
--- NOTE | 2023-08-23 11:27 | W.PN.HOSP.TC ---
Today's Communication/Plan
-
surgical intervention on Friday
Assessment / Plan
Assessment / Plan
# Stump infection /recent right BKA
-ID consult
-Vascular consult
input appreciated, stump revision/debridement planned for Friday
-Lower extremity CT with impression of Postsurgical changes from prior below knee amputation without evidence of acute osteomyelitis or fluid collection. There are superficial skin cesario with cutaneous defect along the lateral aspect of the distal
stump.
-Likely IND by vascular surgery on 08/25/20192023 of stump site
-Arterial ultrasound of right lower extremity is pending
-Continue to hold Eliquis
- iv Zosyn continued
-oral vanco prophylactically to prevent C Diff infection.
-Wound culture sent from ER
input from ID noted and appreciated
WBC 7.7-->8.5
# End-stage renal disease on dialysis/hyponatremia
-Friday
-100 fluid restriction
-Nephrology consulted
# Anemia of chronic disease
-Hemoglobin stable at 7.2-->7.5
-No active bleeding
-Continue to monitor
May need blood perioperatively, Type and Screen done on 08/21
# recent C. Diff Colitis
-finish the course of vanco (08/11/2023)
-oral vanco initiated to prevent C diff infection
#Lumbar Osteomyelitis/Discitis
-was on Ancef until 08/08
#CAD: h/o PAD s/p RLE stenting
-hold eliquis, Plavix
-Aspirin continued
# Essential hypertension
-Norvasc continue with parameters
# GERD
-PPI continued
# Hypotension
-Midodrine continued
#DVT prophylaxis
-SCD
#CODE status
-full code
Anticipated Discharge: > 48 hours
Subjective/Interval History
-
Date of Service: August 23, 2023
Awake, alert, good appetite
Objective Data
-
Labs:
Laboratory Results
08/23/23
09:40
WBC 8.5
Hgb 7.5 L
Hct 23.8 L
Plt Count 581 H
Sodium 131 L
Potassium 4.3
Chloride 98
Carbon Dioxide 22
BUN 31 H
Creatinine 4.3 H*
Glucose 91
Calcium 9.0
Vital Signs:
Vital Signs
Temp Pulse Resp BP Pulse Ox
97.9 F 104 14 132/76 97
08/23/23 07:45 08/23/23 09:15 08/23/23 07:45 08/23/23 09:15 08/23/23 07:45
I&O
08/22/23 08/23/23 08/24/23
06:59 06:59 06:59
Intake Total 340 / 340
Output Total 700 / 700
Balance -360 / -360
Review of Systems
-
History Source: Patient and Coordinated Provider
Constitutional: Reports No Symptoms; Denies Fever
EENT: Reports No Symptoms Reported
Respiratory: Reports No Symptoms
Cardiac: Reports No Symptoms
Abdomen/GI: Reports No Symptoms
Neuro: Denies Dizzy or Headache
Physical Exam
-
General: Well Developed, Well Nourished and No Apparent Distress
HEENT: Normocephalic, Atraumatic and Moist Mucous Membranes
Respiratory: Clear to Auscultation; Negative Wheezes, Rales or Rhonchi
Cardiac: Regular Rhythm and S1/S2
GI: Soft, Nontender and Nondistended
Musculoskeletal: Other (rt BKA stump wrapped)
Neuro: Awake, Alert and Oriented
[2023-08-23] MEDS: ProAmatine 2.5 MG PO (12:24)
[2023-08-23] MEDS: MANNITOL 25% 12.5 GRAMS IV (13:15)
[2023-08-23] MEDS: RETACRIT 10000 UNITS IV (13:54)
--- NOTE | 2023-08-23 14:07 | W.PN.NEPH.HD ---
Assessment
-
. The patient is seen on dialysis
No complaints
Systolic blood pressure. Unfortunately, low at 93, UF goal as tolerated hemodynamically
Progress Note - Hemodialysis
-
Date of Service: August 23, 2023
Duration: 30 minutes and 3 hours
Potassium Bath: 3
Calcium Bath: 2.5
Opti-Dialyzer: 160
Ultrafiltration: Other (1.5kg as Tolerated, patient is significantly above dry weight)
Blood Flow: 400
Dialysate Flow: 600
Heparin: none
EPO: 10,000
[2023-08-23 15:40] VITALS: BP 124/83
--- NOTE | 2023-08-23 15:58 | CM ---
Addendum entered by Keanu Flores 08/23/23 16:18:
Per Consult request: AD information has been supplied to patient.
Original Note:
Initial assessment completed with patient. Patient had a R BKA on 07/22/23 and was discharged from to [facility] for rehab. He was then readmitted to on 08/21/24. Patient has been on HD for a little over 1 month. His HD days are . He
does not have an outpatient dialysis center. He has been at and [facility] since HD initiation.
Prior to the BKA, patient and his sister were living together in a 1 story home plus basement with 1/2 step to enter. Patient has crutches at home and had no in-home services. His sister assisted him as needed. He was independent and did drive. No
history of psychiatric hospitalizations. Pharmacy is [facility] on [address] in [place] and he does not have a PCP. Patient is uncertain if he wants to return to [facility]. He wants to discuss with his sister. Discharge Plan of Care: TBD.
[2023-08-23 16:26] LABS: Glucose - Point of Care 96 mg/dl (70-99)
--- NOTE | 2023-08-23 16:30 | PTCARENOTE ---
MD made aware of large ecchymotic area on L side of abdomen this AM, patient denies any pain in area throughout shift, no new orders per MD. Patient with history of type 2 diabetes per history and physical, confirmed by patient, accuchecks and
insulin ordered per MD. Patient with occasional sharp, shooting pain in R BKA rated 8-9/10, partially relieved by PRN oxycodone - see APR. R BKA incision covered with ABD pad, R BKA wrapped in kerlix wrap and elevated with pillow. Patient placed on
static air overlay post HD session, states no concerns at this time.
[2023-08-23] MEDS: HEPARIN 4300 UNITS INTRACATH (16:47)
[2023-08-23 19:36] VITALS: BP 108/68
[2023-08-23] MEDS: LOPRESSOR PO (19:42)
[2023-08-23 21:01] LABS: Glucose - Point of Care 139 mg/dl (70-99)
[2023-08-23 23:00] VITALS: BP 120/73
[2023-08-24] VITALS (8 sets, daily range): BP systolic 115–135; BP diastolic 68–82; BMI 23.7
[2023-08-24] MEDS: ZOSYN 50 IV ×3 (03:05→21:00)
[2023-08-24] MEDS: FLUSH (NSS) 2 FLUSH IV (03:05)
[2023-08-24] MEDS: ROXICODONE 5 MG PO ×4 (03:05→21:00)
[2023-08-24] MEDS: FIRVANQ 125 MG PO ×3 (03:05→20:57)
[2023-08-24 07:30] LABS: Hematocrit 21.6 % (39.0-52.0); Mean Corp Hgb Conc. 31.5 g/dL (33.0-37.0); Mean Corpuscular Hgb 28.3 pg (27.0-31.0); Mean Platelet Volume 8.5 fL (7.4-10.4); Platelet Count 548 10^3/uL (130-400); Red Cell Dist. Width 14.9 % (11.5-14.5); White Blood Cell Count 8.8 10^3/uL (4.8-10.8)
[2023-08-24 07:40] LABS: Hemoglobin 6.8 g/dL (13.0-18.0)
[2023-08-24 07:43] LABS: Glucose - Point of Care 88 mg/dl (70-99)
--- NOTE | 2023-08-24 07:52 | W.PN.VS ---
Today's Communication / Plan
-
OR evi
hgb low - will ask medicine team to order blood in prep for OR
Assessment/Plan
-
wound on bka
plan for debridement or revision to aka friday
antbx over weekend
npo tonight
hgb low - will need transfusion in prep for OR
Subjective Data
-
Date of Service: August 24, 2023
stable
Objective Data
-
Vital Signs
Temp Pulse Resp BP Pulse Ox
98.3 F 105 18 120/73 95
08/23/23 23:00 08/23/23 23:00 08/23/23 23:00 08/23/23 23:00 08/23/23 23:00
Intake and Output
08/23/23 08/24/23 08/25/23
06:59 06:59 06:59
Intake Total 340 / 340 1120 / 1120
Output Total 700 / 700 700 / 700
Balance -360 / -360 420 / 420
Intake:
Oral fluids 240 / 240 1020 / 1020
IV piggybacks 100 / 100 100 / 100
Output:
Urine, Voided 700 / 700 700 / 700
Lab Results
08/24/23 06:44
Calcium 9.0 mg/dl (8.4-10.2) 08/23/23 09:40
Total Bilirubin 0.7 mg/dl (0.2-1.3) 08/22/23 13:37
AST 13 U/L (17-59) L 08/22/23 13:37
ALT < 10 U/L (0-50) 08/22/23 13:37
Alkaline Phosphatase 127 U/L (38-126) H 08/22/23 13:37
Total Protein 6.0 g/dl (6.3-8.2) L 08/22/23 13:37
Albumin 2.8 g/dl (3.5-5.0) L 08/22/23 13:37
[2023-08-24 07:53] LABS: Blood Urea Nitrogen 15 mg/dl (9-20); Calcium 8.4 mg/dl (8.4-10.2); Carbon Dioxide 28 mmol/L (22-30); Chloride 97 mmol/L (98-107); Estimated Creatinine Clearance 29 ml/min; Glucose 85 mg/dl (70-99); Potassium 3.9 mmol/L (3.5-5.1); Sodium 132 mmol/L (135-145); eGFR 22.21
[2023-08-24] MEDS: LOW STRENGTH ASPIRIN 81 MG PO (08:02)
[2023-08-24] MEDS: PROTONIX 40 MG PO ×2 (08:02→20:59)
[2023-08-24] MEDS: VITAMIN D3 (cholecalciferol) 25 MCG PO (08:03)
[2023-08-24] MEDS: NORVASC 5 MG PO (08:03)
[2023-08-24] MEDS: LOPRESSOR 25 MG PO ×2 (08:04→20:59)
[2023-08-24] MEDS: LIDOCAINE 4% PATCH 1 PATCH TOPICAL (08:05)
[2023-08-24] MEDS: PLAVIX 75 MG PO (08:05)
--- NOTE | 2023-08-24 08:07 | W.PN.HOSP.TC ---
Addendum entered and electronically signed by Curt Walters MD 08/24/23 08:23:
08/21 EKG demonstrates A. Fib. Pt is unaware of having A. Fib in past, though has been on Eliquis.
With planned surgical intervention, will place on tele monitor and request cardio input
Original Note:
Today's Communication/Plan
-
transfuse 1 unit PRBC now
need to give blood explained to pt who consents
Assessment / Plan
Assessment / Plan
# Stump infection /recent right BKA
-ID consult - input appreciated
-Vascular consult
input appreciated, stump revision/debridement planned for Friday
Dr. Mcgovern requesting unit of blood be given prior to surgical intervention
-Lower extremity CT with impression of Postsurgical changes from prior below knee amputation without evidence of acute osteomyelitis or fluid collection. There are superficial skin cesario with cutaneous defect along the lateral aspect of the distal
stump.
-Arterial ultrasound of right lower extremity: Patent right common femoral artery with normal triphasic waveform.
-Continue to hold Eliquis
- iv Zosyn 2.25 q6h continued
-oral vanco prophylactically to prevent C Diff infection.
-Wound culture sent from ER
WBC 7.7-->8.5-->8.8
# End-stage renal disease on dialysis/hyponatremia
-Friday
-100 fluid restriction
-Nephrology consulted
# Anemia of chronic disease
-Hemoglobin borderline initially, now has decreased post dialysis 7.2-->7.5-->6.[address] Dunn, okay to transfuse unit post dialysis
-No active bleeding
-Continue to monitor
Type and Screen done on 08/21, blood permit obtained today, will transfuse now
# recent C. Diff Colitis
-oral vanco initiated to prevent C diff infection
#Lumbar Osteomyelitis/Discitis
-was on Ancef until 08/08
#CAD: h/o PAD s/p RLE stenting
-hold eliquis,
-Aspirin, Plavix continued (as per Dr. Mcgovern)
# Essential hypertension
-Norvasc continue with parameters
# GERD
-PPI continued
# Hypotension
-Midodrine continued
#DVT prophylaxis
-SCD
#CODE status
-full code
Anticipated Discharge: > 48 hours
Subjective/Interval History
-
Date of Service: August 24, 2023
Intermittent pain at infection site
Objective Data
-
Labs:
Laboratory Results
08/24/23
06:44
WBC 8.8
Hgb 6.8 L*
Hct 21.6 L
Plt Count 548 H
Sodium 132 L
Potassium 3.9
Chloride 97 L
Carbon Dioxide 28
BUN 15
Creatinine 3.0 H
Glucose 85
Calcium 8.4
Vital Signs:
Vital Signs
Temp Pulse Resp BP Pulse Ox
98.3 F 105 18 120/73 95
08/23/23 23:00 08/23/23 23:00 08/23/23 23:00 08/23/23 23:00 08/23/23 23:00
I&O
08/23/23 08/24/23 08/25/23
06:59 06:59 06:59
Intake Total 340 / 340 1120 / 1120
Output Total 700 / 700 700 / 700
Balance -360 / -360 420 / 420
Review of Systems
-
History Source: Patient and Coordinated Provider
Constitutional: Reports No Symptoms; Denies Fever
EENT: Reports No Symptoms Reported
Respiratory: Reports No Symptoms
Cardiac: Reports No Symptoms
Abdomen/GI: Reports No Symptoms
Neuro: Denies Dizzy or Headache
Physical Exam
-
General: Well Developed, Well Nourished and No Apparent Distress
HEENT: Normocephalic, Atraumatic and Moist Mucous Membranes
Respiratory: Clear to Auscultation; Negative Wheezes, Rales or Rhonchi
Cardiac: Regular Rhythm and S1/S2
GI: Soft, Nontender and Nondistended
Musculoskeletal: Other (rt BKA stump wrapped)
Neuro: Awake, Alert and Oriented
--- NOTE | 2023-08-24 09:26 | W.PN.NEPH.PH ---
Today's Communication / Plan
-
Dialysis tomorrow
Okay for 1 unit blood transfer
Assessment/Plan
-
Impression:
Infected right BKA stump (was discharged on 07/26/23 on vancomycin and cefazolin)
Tunneled right IJ catheter
End-stage renal disease Friday at [facility]
History of hypertension now hypotensive
Atrial fibrillation
Anemia
Peripheral vascular disease
Diabetes
History of epidural abscess and psoas abscess
Plan:
-HD likely tomorrow, will provide orders
-Will time dialysis to vascular surgery tomorrow
-Anemia exacerbating okay to provide 1 unit of blood today, discussed with primary team
-Does not examine volume overloaded
-Maximize SARTHAK for anemia on dialysis
-1500 cc fluid restriction on admission, low potassium and low sodium renal diet
-Infectious disease directing Zosyn and vancomycin
-For likely I&D by vascular surgery on 08/25/2023 of stump site
-
-
-
Date of Service: August 24, 2023
CC / HPI / ROS
-
Chief Complaint:
ESRD
History of Present Illness:
ESRD Friday
Hemodynamically
Remains on vancomycin and Zosyn for stump wound infection
Anemia worsening and now less than 7
Review of Systems:
No chest pain or shortness of breath
no fevers
Labs
-
Labs:
WBC 8.8 10^3/uL (4.8-10.8) 08/24/23 06:44
RBC 2.40 10^6/uL (4.70-6.10) L 08/24/23 06:44
Hgb 6.8 g/dL (13.0-18.0) L* 08/24/23 06:44
Hct 21.6 % (39.0-52.0) L 08/24/23 06:44
Plt Count 548 10^3/uL (130-400) H 08/24/23 06:44
Sodium 132 mmol/L (135-145) L 08/24/23 06:44
Potassium 3.9 mmol/L (3.5-5.1) 08/24/23 06:44
Chloride 97 mmol/L (98-107) L 08/24/23 06:44
Carbon Dioxide 28 mmol/L (22-30) 08/24/23 06:44
BUN 15 mg/dl (9-20) 08/24/23 06:44
Creatinine 3.0 mg/dL (0.7-1.3) H 08/24/23 06:44
eGFR 22.21 08/24/23 06:44
Glucose 85 mg/dl (70-99) 08/24/23 06:44
Calcium 8.4 mg/dl (8.4-10.2) 08/24/23 06:44
Albumin 2.8 g/dl (3.5-5.0) L 08/22/23 13:37
Physical Exam
-
Vital Signs:
Vital Signs
Temp Pulse Resp BP Pulse Ox
97.9 F 108 20 119/71 96
08/24/23 09:17 08/24/23 09:17 08/24/23 09:17 08/24/23 09:17 08/24/23 09:17
Cardiovascular:: Regular rate and rhythm
Respiratory:: Bilateral: CTA
Lung Excursion:: Normal
Abdomen:: Nontender and Soft
Bowel Sounds:: Normal
Extremity Edema:: None: Bilateral: and None: Right: (Right BKA*)
Mccloud Catheter: No
[2023-08-24 11:43] LABS: Glucose - Point of Care 98 mg/dl (70-99)
[2023-08-24 13:09] LABS: Glycohemoglobin (HgbA1c) 4.4 % (4.0-5.6)
--- NOTE | 2023-08-24 15:20 | PHA.VAN.IN ---
Assessment
- Assessment
Renal Function: Patient has ESRD, on chronic Hemodialysis
Hemodialysis Schedule: MWF
Maximum Temperature: 98.3 08/23/23 at 23:00
Minimum Temperature: 97.7 08/24/23 at 11:25
Concomitant Antimicrobials: Piperacillin-tazobactam, Oral vancomycin (prev hx CDiff)
Plan
- Plan
Initial / Loading Dose: Vancomycin 1500mg IV x 1 dose
Maintenance Regimen: Dose by level for now
Monitoring: Random vancomycin level ordered for 08/25/23 06:00
Pharmacokinetics Vancomycin I
- -
Patient Age: 68
Patient Sex: Male
Vancomycin Day #: 1
Indication: [facility] (R BKA infection)
Requesting Provider: Dr Alison Bhatt
Pertinent Antimicrobial Allergies:
No antibiotic allergies
Height / Weight:
Height 6 ft 2.5 in
Actual Weight 84.907 kg
IBW in k.4
Adjusted BW in k
Pertinent Past Medical History: R BKA was on cefazolin [employer], DM, recent laminectomy-epidural abcess [place]
- Vital Signs / Lab Results
Temp Pulse Resp BP Pulse Ox
97.9 F 101 20 117/72 96
08/24/23 12:00 08/24/23 12:00 08/24/23 12:00 08/24/23 12:00 08/24/23 12:00
Lab Results - Hematology
08/22/23 08/23/23 08/24/23
13:37 09:40 06:44
WBC 7.7 8.5 8.8
Lab Results - Chemistry
08/22/23 08/23/23 08/24/23
13:37 09:40 06:44
BUN 26 H 31 H 15
Creatinine 3.9 H 4.3 H* 3.0 H
Estimated Creat Clear 21 20 29
Albumin 2.8 L
Microbiology Results
08/22/23 16:22 Wound Culture - Final
Leg - Right Gram negative bacilli
Staphylococcus aureus
Enterococcus species
Gram Stain - Final
08/23/23 09:52 Nasal Screen MRSA (PCR) - Final
Nose MRSA not detected - performed by PCR methodology.
[2023-08-24] MEDS: VANCOCIN 300 ML IV (16:13)
[2023-08-24] MEDS: VANCOCIN 300 MG IV (16:13)
--- NOTE | 2023-08-24 16:34 | CON.CAR ---
Addendum entered and electronically signed by Mika Joseph MD 08/24/23 18:24:
I saw and examined the patient.
The residents's note was reviewed and I agree with the note.
Comment:
Pt is a poor historian. This is the first time we are seeing AFib here. Fortunately he has overt symptoms from his AFib.
Once he is adequately recovered from surgery we should add anticoagulation if pt willing to accept the small but real risks of bleeding.
He has moderate cardiac risk but no evidence of ACS or active heart failure and afib is asymptomatic and adequately rate controlled so there is no good reason to proceed to cath / revascularization.
Will check echo to better understand his cardiac structure/function.
Original Note:
Consultation
Consultation Request
Date/Time Consultation Requested: 08/24/2023, 8:24 AM
Date/Time Consultation Performed: 08/24/2023, 11:30 AM
Requesting Provider: Curt Childress
Performing Provider: Eva Dee for Mika Mcgraw
Reason for Consultation: New onset Afib
Medical History
-
Chief Complaint: Infected stump.
History of Present Illness:
68-year-old male who presents to the hospital for wound debridement following an infected stump as referred by wound care from outpatient. Complex past medical history significant for diabetes, epidural abscess, lumbar osteomyelitis, GERD,
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 Upon presentation he had drainage from his infected wound dressing changes. Cardiology consulted for new onset atrial
fibrillation on his EKG.
Past Medical History
Past Medical History: Other (Discitis Diverticulosis Hypertension GERD Depression End-stage renal disease Osteomyelitis Peripheral vascular disease Type 2 diabetes C. difficile colitis GI bleed)
Past Surgical History: Other (Right below-knee amputation.)
Social History
Tobacco: Former Smoker (1 pack a day for 40 years, quit smoking about few years ago, currently smokes 1 cigarette a day.)
Alcohol: Occasional (Drinks about every 2 beers on the weekend. Never used an eye-auto body repair estimator, was never in withdrawal.)
Drug: None
Personal: Single
Living: Assisted Living ([facility]
Family History
Family History: Reviewed & Not Pertinent
Allergies / Home Medications
Allergy/AdvReac Type Severity Reaction Status Date / Time
No Known Allergies Allergy Verified 08/22/23 12:14
�Medication �Instructions �Recorded �Confirmed �Type
acetaminophen 500 mg tablet 1,000 mg PO TID Pain 06/29/23 08/22/23 History
amlodipine 10 mg tablet 10 mg PO DAILY Blood Pressure 06/29/23 08/22/23 History
apixaban 2.5 mg tablet 2.5 mg PO BID Blood Clot 06/29/23 08/22/23 History
Prevention/Tx
aspirin 81 mg chewable tablet 81 mg PO DAILY Blood Clot 06/29/23 08/22/23 History
Prevention/Tx
bisacodyl 10 mg rectal suppository 10 mg ND DAILY PRN if no results 06/29/23 08/22/23 History
for MOM
cholecalciferol (vitamin D3) 25 25 mcg PO DAILY Supplement 06/29/23 08/22/23 History
mcg (1,000 unit) tablet
clopidogrel 75 mg tablet 75 mg PO DAILY Blood Clot 06/29/23 08/22/23 History
Prevention/Tx
lidocaine 4 % topical patch 1 patch topical DAILY lower back 06/29/23 08/22/23 History
magnesium hydroxide 400 mg/5 mL 30 ml PO HSPRN PRN if no BM in 3 06/29/23 08/22/23 History
oral suspension (Milk of Magnesia) days
metoprolol tartrate 25 mg tablet 25 mg PO BID Blood Pressure 06/29/23 08/22/23 History
famotidine 20 mg tablet 20 mg PO Q48H #0 tabs 07/26/23 08/22/23 Rx
gabapentin 100 mg capsule 100 mg PO HD-MOWEFR #0 caps 07/26/23 08/22/23 Rx
oxycodone 5 mg tablet 5 mg PO Q4HPRN PRN moderate pain 07/26/23 08/22/23 Rx
#10 tabs
pantoprazole 40 mg tablet,delayed 40 mg PO BID #0 tabs 07/26/23 08/22/23 Rx
release
sucralfate 100 mg/mL oral 1 gm PO ACHS #0 mL 07/26/23 08/22/23 Rx
suspension
midodrine 2.5 mg tablet 2.5 mg PO Q8HPRN PRN low blood 08/22/23 08/22/23 History
pressure
Review of Systems
-
History Source: Patient
All other systems: Negative unless noted
Physical Exam
Vital Signs
Temp Pulse Resp BP Pulse Ox
98 F 96 18 117/73 96
08/24/23 15:35 08/24/23 15:35 08/24/23 15:35 08/24/23 15:35 08/24/23 15:35
Lab Results
08/24/23 06:44
08/24/23 06:44
Physical Exam
General: Comfortable (On room air.) and Other (Pallor)
HEENT: Normocephalic, Anicteric and Other (Conjunctival pallor present)
Respiratory: Clear; Negative Wheezes, Crackles or Rhonchi
Cardiac: S1/S2 and Irregular Rhythm; Negative Murmur or Rub
GI: Soft, Non Tender, Non Distended and Normal Bowel Sounds
Musculoskeletal: Edema (Trace pitting remedy, amputated for extremity, stump noted.)
Neuro: AO x 3 and No Motor Deficits
Psych: Calm
Impression / Plan
-
Background -
68-year-old male with PMHx significant for ESRD on dialysis, type 2 diabetes, hypertension, lumbar osteomyelitis, PAD s/p right knee below amputation, depression with suicidal ideation in the past, GERD, C. difficile colitis, presents to the
hospital with stump reinfection. Cardiology consulted for new onset atrial fibrillation and preoperative evaluation.
Impression -
New onset atrial fibrillation-
- Currently on rate control, metoprolol
- [id number] score-4, high risk need anticoagulation.
- Currently Eliquis on hold, appropriate Eliquis dose for him would be 5 mg twice a day.
- Recommend resuming Eliquis 5 mg twice a day when surgically appropriate.
Hypertension-
-Well-controlled with metoprolol and amlodipine.
Chest x-ray findings concerning for mild interstitial pulmonary edema-
- unclear etiology could be likely of volume overload from ESRD.
- Will evaluate with echocardiogram in the a.m. tomorrow.
Preop risk evaluation -
-Based on NSQIP risk index, patient is at intermediate risk for cardiac complication medication with values ranging at 0.3 to 2.6% with average risk at 1.3%. His ESRD on dialysis increases his overall risk for any complication and is recommended
to proceed with the planned surgery. Will resume Eliquis when surgically appropriate.
Subjective -
Reports no complaints.
Data reviewed -
EKG-08/24/2023-A-fib, likely new onset rate 75., Unchanged from 08/22/2023.
Chest x-ray-08/22/2023-mild interstitial pulmonary edema, marked cardiac silhouette enlargement compared to 07/07/2023. Questionable pericardial effusion.
Data Reviewed
-
EKG: Tracing Personally Visualized and interpreted
Labs: Labs Reviewed by me
Old Records: Reviewed
[2023-08-24 17:07] LABS: Glucose - Point of Care 92 mg/dl (70-99)
--- NOTE | 2023-08-24 17:19 | PTCARENOTE ---
Patient received 1 unit of PRBC's today following low hemoglobin of 6.8 this morning. No signs of bleeding noted, vitals stable on room air. Plan for surgery tomorrow for debridement of right BKA stump.
[2023-08-24] MEDS: PEPCID 20 MG PO (21:00)
[2023-08-24 21:36] LABS: Glucose - Point of Care 145 mg/dl (70-99)
[2023-08-25] VITALS (20 sets, daily range): BP systolic 60–125; BP diastolic 51–103; BMI 23.4
[2023-08-25] MEDS: ROXICODONE 5 MG PO ×3 (04:22→20:22)
[2023-08-25] MEDS: ZOSYN 50 IV ×2 (04:22→20:20)
[2023-08-25 06:05] LABS: Glucose - Point of Care 91 mg/dl (70-99)
--- NOTE | 2023-08-25 07:35 | WOUNDNOTE ---
WOC RN note: Confirmed with Allison Adams vascular PA that WOC RN does not need to see patient in regard of his R BKA; Vascular service is planning to take patient to OR for a wash out. Please call if needed otherwise.
[2023-08-25 07:54] LABS: Hematocrit 25.3 % (39.0-52.0); Mean Corp Hgb Conc. 33.2 g/dL (33.0-37.0); Mean Corpuscular Hgb 29.8 pg (27.0-31.0); Mean Corpuscular Volume 89.7 fL (80.0-94.0); Mean Platelet Volume 8.5 fL (7.4-10.4); Platelet Count 523 10^3/uL (130-400); Red Blood Cell Count 2.82 10^6/uL (4.70-6.10); Red Cell Dist. Width 14.7 % (11.5-14.5); White Blood Cell Count 8.1 10^3/uL (4.8-10.8)
[2023-08-25 07:57] LABS: Vancomycin Random 15.4 ug/ml
--- NOTE | 2023-08-25 08:05 | PHA.VAN.FU ---
Vancomycin Assessment / Plan
- Assessment
Hemodialysis Schedule: MWF
Last Hemodialysis performed: Sat 08/22
Concomitant Antimicrobials: piperacillin/tazobactam, vanco PO
- Assessment - Therapeutic Drug Monitoring
Random Level: pre-HD = 15.4 - drawn ~15H after 1500mg initial dose
- Dosing Plan
Dosing by Level: Re-dose today (Vanc 750mg)
- Monitoring Plan
No level(s) ordered at this time: consider pre-HD level for 08/26
- Follow Up
Pharmacy will continue to follow.
Vancomycin Follow UP
- -
Patient Age: 68
Patient Sex: Male
Vancomycin Day #: 2
Indication: [facility]
Requesting Provider: Dr. Bhatt
Pertinent Antimicrobial Allergies:
NKDA
Height / Weight:
Height 6 ft 2.5 in
Actual Weight 83.915 kg
IBW in k.4
Adjusted BW in k
Pertinent Past Medical History: ESRD on HD MWF, RNicole BKA
- Vital Signs / Lab Results
Temp Pulse Resp BP Pulse Ox
98.0 F 102 18 121/81 98
08/25/23 07:56 08/25/23 07:56 08/25/23 07:56 08/25/23 07:56 08/25/23 07:56
Lab Results - Hematology
08/22/23 08/23/23 08/24/23
13:37 09:40 06:44
WBC 7.7 8.5 8.8
Lab Results - Chemistry
08/22/23 08/23/23 08/24/23
13:37 09:40 06:44
BUN 26 H 31 H 15
Creatinine 3.9 H 4.3 H* 3.0 H
Estimated Creat Clear 20 29
Albumin 2.8 L
Microbiology Results
08/22/23 16:22 Wound Culture - Final
Leg - Right Gram negative bacilli
Staphylococcus aureus
Enterococcus species
Gram Stain - Final
08/23/23 09:52 Nasal Screen MRSA (PCR) - Final
Nose MRSA not detected - performed by PCR methodology.
Therapeutic Drug Monitoring
Random Vancomycin 15.4 ug/ml 08/25/23 07:22
[2023-08-25 08:10] LABS: Hemoglobin 8.4 g/dL (13.0-18.0)
[2023-08-25 08:18] LABS: Blood Urea Nitrogen 21 mg/dl (9-20); Carbon Dioxide 27 mmol/L (22-30); Chloride 99 mmol/L (98-107); Estimated Creatinine Clearance 22 ml/min; Glucose 82 mg/dl (70-99); Potassium 3.9 mmol/L (3.5-5.1); Sodium 134 mmol/L (135-145); eGFR 16.21
--- NOTE | 2023-08-25 08:21 | W.PN.UPDATE ---
Update Note
Progress Note Update
Reviewed pertinent imaging and discussed with patient plan. Discussed dehiscence of BKA site with concern for nonhealing/necrosis/possible infection. Discussed plan for washout BKA. Discussed in the setting there is always a possibility of
requiring an hdwdl-gih-jwzv amputation. Patient is quite adamant against an ifmcg-wot-tzrz amputation at this point. Therefore discussed with him that we will regardless wash this out and hopefully be able to close some deeper tissue and VAC.
However discussed with him that if he should require above-knee amputation, then we will have to plan in a staged fashion so that can further discuss with him. He is in agreement with the plan.
[2023-08-25] MEDS: LIDOCAINE 4% PATCH 1 PATCH TOPICAL (08:52)
[2023-08-25] MEDS: BACTROBAN 2% OINTMENT 1 APPLIC NASAL (08:53)
[2023-08-25] MEDS: FIRVANQ 125 MG PO ×2 (08:53→20:22)
[2023-08-25] MEDS: NORVASC PO (08:59)
[2023-08-25] MEDS: LOPRESSOR PO (08:59)
[2023-08-25] MEDS: ProAmatine 5 MG PO (09:15)
[2023-08-25] MEDS: PROTONIX 40 MG PO ×2 (09:16→20:19)
[2023-08-25] MEDS: LOW STRENGTH ASPIRIN 81 MG PO (09:16)
[2023-08-25] MEDS: NEURONTIN 100 MG PO (09:16)
[2023-08-25] MEDS: VITAMIN D3 (cholecalciferol) 25 MCG PO (09:17)
[2023-08-25] MEDS: PERIDEX 0.12% ORAL RINSE 15 ML PO (09:18)
[2023-08-25] MEDS: PLAVIX 75 MG PO (09:39)
[2023-08-25] MEDS: RETACRIT 10000 UNITS IV (09:51)
[2023-08-25] MEDS: VANCOCIN 150 IV (10:46)
--- NOTE | 2023-08-25 10:56 | W.PN.NEPH.HD ---
Assessment
-
seen on HD. no complaints new. VSS, access ok
for OR today
Progress Note - Hemodialysis
-
Date of Service: August 25, 2023
Duration: 30 minutes and 3 hours
Potassium Bath: 3
Calcium Bath: 2.5
Opti-Dialyzer: 160
Ultrafiltration: Other (2.5)
Blood Flow: 400
Dialysate Flow: 600
Heparin: 0
EPO: 89806 units
--- NOTE | 2023-08-25 11:04 | W.PN.ID1 ---
Date of Service
Date of Service: August 25, 2023
Today's Communication
- please sent cultures aerobic and anaerobic from the OR
- continue zosyn, final antibiotic selection and duration pending clinical course
Assessment / Plan
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
- wound cx: GNRs, moderate S aureus/enterococcus - lab will get IDs and sensi
- mrsa screen negative
- please sent cultures aerobic and anaerobic from the OR
- will follow up OR note
- continue IV vancomycin and zosyn, final antibiotic selection and duration pending clinical course
- follow clinically
Colonization with C difficile
- continue oral vancomycin while on broad spectrum rx
Chief Complaint
-: Other (Surgical site infection)
Subjective / Review of Systems
afebrile
bp stable
without leukocytosis
K normal
wound cx: GNRs, moderate S aureus/enterococcus
for the OR today
seen on HD
called sister aidan at patient request, he would like to speak with her; she answered and I passed along the message
Vital Signs / Physical Exam
Vital Signs
Vital Signs
Temp Pulse Resp BP Pulse Ox
98.0 F 96 18 119/76 98
08/25/23 07:56 08/25/23 09:15 08/25/23 07:56 08/25/23 09:15 08/25/23 07:56
Physical Exam
Constitutional: No Acute Distress
Cardiovascular: Regular Rate and S1/S2; Negative Murmur or Rub
Pulmonary: Clear and Symmetric; Negative Wheezes or Rales
Gastrointestinal: Soft, Non Tender, Non Distended and Normal Bowel Sounds
Skin: Warm and Dry; Negative Rash or Jaundice
Wound: Other (dressing take down deferred today)
Neurological: Awake
Objective Data
Lab Data
Lab Results
08/25/23 07:22
07/08/24 07:22
PT 18.0 Sec (11.4-14.6) H 08/22/23 13:37
INR 1.51 08/22/23 13:37
APTT 57.5 Sec (23.4-35.0) H 08/22/23 13:37
Estimated Creat Clear 22 ml/min 08/25/23 07:22
Total Bilirubin 0.7 mg/dl (0.2-1.3) 08/22/23 13:37
AST 13 U/L (17-59) L 08/22/23 13:37
ALT < 10 U/L (0-50) 08/22/23 13:37
Alkaline Phosphatase 127 U/L (38-126) H 08/22/23 13:37
Most recent labs reviewed.
Micro Results:
08/22/23 16:22 Wound Culture - Final
Leg - Right Gram negative bacilli
Staphylococcus aureus
Enterococcus species
Gram Stain - Final
08/23/23 09:52 Nasal Screen MRSA (PCR) - Final
Nose MRSA not detected - performed by PCR methodology.
--- NOTE | 2023-08-25 11:33 | W.PN.HOSP.TC ---
Today's Communication/Plan
-
.
Assessment / Plan
Assessment / Plan
Physical Exam
General: Comfortable (On room air.) and Other (Pallor)
HEENT: Normocephalic, Anicteric
Respiratory: Clear; Negative Wheezes, Crackles or Rhonchi
Cardiac: S1/S2 and Irregular Rhythm; Negative Murmur or Rub
GI: Soft, Non Tender, Non Distended and Normal Bowel Sounds
Musculoskeletal: Edema (Trace pitting remedy, amputated for extremity, stump with clean dressing.)
Neuro: AO x 3 and No Motor Deficits
Psych: Calm
# Stump/ wound infection /recent right BKA 07/22/23
-ID consult - input appreciated
-Vascular consult
input appreciated, stump revision/debridement planned for wash out and debridement. Pt declined above knee amputation and would rather try to c/w wound care for now knowing that such plan would likely not provide healing.
Dr. Mcgovern requested unit of blood be given prior to surgical intervention
-Lower extremity CT with impression of Postsurgical changes from prior below knee amputation without evidence of acute osteomyelitis or fluid collection. There are superficial skin cesario with cutaneous defect along the lateral aspect of the distal
stump.
-Arterial ultrasound of right lower extremity: Patent right common femoral artery with normal triphasic waveform.
-Continue to hold Eliquis
- iv Zosyn 2.25 q6h continued
-oral vanco prophylactically to prevent C Diff infection.
-Wound culture sent from ER
WBC 7.7-->8.5-->8.8
# End-stage renal disease on dialysis/hyponatremia
-Friday
-100 fluid restriction
-Nephrology consulted
# Anemia of chronic disease
-Hemoglobin borderline initially, now has decreased post dialysis 7.2-->7.5-->6.[address] Dunn, okay to transfuse unit post dialysis
-No active bleeding
-Continue to monitor
Type and Screen done on 08/21, blood permit obtained today, will transfuse now
# recent C. Diff Colitis
-oral vanco initiated to prevent C diff infection
#Lumbar Osteomyelitis/Discitis
-was on Ancef until 08/08
#CAD: h/o PAD s/p RLE stenting
-hold eliquis,
-Aspirin, Plavix continued (as per Dr. Mcgovern)
# Essential hypertension
-Norvasc continue with parameters
# GERD
-PPI continued
# Hypotension
-Midodrine continued
#DVT prophylaxis
-SCD
#CODE status
-full code
Total time spent to see the patient, examine the patient, review data and lab results, and discuss the treatment plan with patient, nurse around 55 minutes
Anticipated Discharge: > 48 hours
Subjective/Interval History
-
Date of Service: August 25, 2023
No chest pain, no sob
Objective Data
-
Labs:
Laboratory Results
08/25/23
07:22
WBC 8.1
Hgb 8.4 L D
Hct 25.3 L
Plt Count 523 H
Sodium 134 L
Potassium 3.9
Chloride 99
Carbon Dioxide 27
BUN 21 H
Creatinine 3.9 H
Glucose 82
Calcium 9.0
Vital Signs:
Vital Signs
Temp Pulse Resp BP Pulse Ox
98.2 F 75 18 107/74 98
08/25/23 11:13 08/25/23 11:13 08/25/23 11:13 08/25/23 11:13 08/25/23 11:13
I&O
08/24/23 08/25/23 08/26/23
06:59 06:59 06:59
Intake Total 1120 / 1120 1310 / 1310
Output Total 700 / 700 1195 / 1195
Balance 420 / 420 115 / 115
[2023-08-25] MEDS: HEPARIN 4300 UNITS INTRACATH (11:47)
[2023-08-25 12:06] LABS: Glucose - Point of Care 82 mg/dl (70-99)
[2023-08-25] MEDS: NOVOLOG FLEXPEN-LOW RESISTANCE SC ×2 (12:07→17:09)
--- NOTE | 2023-08-25 12:36 | PTCARENOTE ---
patient arrived to vascular/cath/ep recovery room. Dr Gutierrez at bedside, consent obtained
--- NOTE | 2023-08-25 12:40 | PTCARENOTE ---
site marked by Dr. Gutierrez
Dr Quiroz at bedside for anesthesia pre op eval
--- NOTE | 2023-08-25 12:53 | PTCARENOTE ---
report given at bedside, patient transfered to vascular lab
--- NOTE | 2023-08-25 14:04 | W.SUR.POST ---
Surgical Immediate Post Op
Note
Pre Op Diagnosis: Right BKA infection
Post Op Diagnosis: Same
Procedure Performed: Right BKA washout/revision
Primary Surgeon: Matt
Assist: Bryan ANDERSON
Anesthesia: General
Estimated Blood Loss: 50 cc
Fluids: See anesthesia flowsheet
Drains/Shunts: None
Specimens/Cultures: Culture swabs x 2
Doppler/Duplex/Angio (Y/N): Y
Complications: None
Operative Findings: Wet-to-dry dressing
--- NOTE | 2023-08-25 14:36 | SUR.PHASEI ---
Patient arrives to PACU restless, groaning. Hypotensive with AFib in the 120's. Patient has severe pain. Selvin Arciniega RN BSN.
[2023-08-25] MEDS: SUBLIMAZE 50 MCG IV ×2 (14:49→15:05)
--- NOTE | 2023-08-25 14:52 | OR.RPT ---
Operative Report
Operative Report
PROCEDURE DATE: 08/25/2023
Preoperative diagnosis: Infected/dehisced right below the knee amputation stump
Postoperative diagnosis: Same
Procedure:
1. Debridement/washout right below the knee amputation stump with pulse lavage irrigation.
2. Debridement through skin/subcutaneous tissue/bone with approximately 2 to 3 cm tibial stump resection.
Surgeon: Matt
Parachute Mender: Bryan, required for all aspects of procedure including assistance with traction/countertraction, closure.
Complications: None
Anesthesia: General
Indications for procedure:
Infected/dehisced right below the knee amputation stump. Discussed possible need for revision to giyzt-egb-bnpc amputation. He was not willing to consent for elhfo-rjm-whxj revision if needed, but was willing to undergo debridement and washout.
Risk/benefits/alternatives all discussed. Patient understood all wish to proceed.
Description of procedure:
Patient was identified brought to the operating room placed on the table in supine position. After the adequate administration of anesthesia he was prepped and draped in the standard surgical fashion. A standard preoperative timeout was undertaken
and everybody was in agreement the plan. The mid to lateral segment of the staple line had approximately about a 3 cm dehiscence. There was purulent tissue that could be seen emanating out. I therefore removed all the cesario. I could probe my
finger medially towards the center and just medial of midline of the staple line. Therefore I used a blade to open this segment of the skin and subcutaneous tissues up. Culture swabs were taken. The bone/tibia was clearly exposed now and there is
no granulation tissue overlying it. There was some small bit of somewhat infected appearing old hematoma that was washed out. Beyond this the tissues were relatively viable though the posterior flap fatty tissue and muscle was somewhat pale.
Therefore I debrided this down to better bleeding tissue. The muscle tissue adjacent to the tibia was also debrided down. The deeper tissues and the lateral and more medial tissues were all fairly incorporated and healed. A periosteal elevator
was used to elevate the periosteum off the exposed tibia. Once I completed this I then used the bone saw and transected the tibia approximately 2 to 3 cm more proximally. Once I did this, I used a pulse lavage steel buffer to vigorously pulse lavage
all the tissues. They appeared much night cleaner once I completed this. Mytmcg-kk-ldrvr type II 0 silk pop-off sutures were used for hemostasis. Once I confirmed hemostasis throughout the bed, I then tried to close some tissue over the bone. If the
anterior fascia was very thinned and almost adherent to the skin and the skin was somewhat macerated/weakened. Therefore was a little bit tough to get good anterior purchase of the bites, and even the posterior fascial type tissue that I used was
somewhat weakened. However I was able to close some of this fascia in order to get the deeper tissues of the flap to cover the bone. Once this was completed, we then placed wet-to-dry dressings in the subcutaneous space. Bolviar bandage compression
was applied. The patient tolerated the procedure well. We will likely attempt to place a wound VAC at the bedside as long as the tissues remain dry and clean.
--- NOTE | 2023-08-25 14:52 | SUR.PHASEI ---
Dr Reilly in PACU to see patient, asked for patient to get a fluid bolus. Selvin Arciniega RN BSN.
[2023-08-25] MEDS: ZOSYN IV (15:08)
[2023-08-25] MEDS: NSS 250 IV (15:19)
[2023-08-25 15:25] LABS: Glucose - Point of Care 97 mg/dl (70-99)
[2023-08-25] MEDS: DILAUDID PCA 30 IV (15:34)
[2023-08-25] MEDS: D5/0.45%NACL 1000 IV (15:40)
--- NOTE | 2023-08-25 16:18 | PTCARENOTE ---
Received patient from PACU s/p R BKA washout and revision. VSS, Dilaudid PLAYER DEVELOPMENT MANAGER pump initiated in PACU, settings verified at bedside with BROADCAST DESIGNER, cont POX applied on tele monitor, pt 98% on 2L. Patient educated on PLAYER DEVELOPMENT MANAGER pump, verbalizes understanding.
HR in low 100s/110s afib on tele monitor. R BKA dressing C/D/I. Patient states no concerns at this time, diet order entered.
--- NOTE | 2023-08-25 16:29 | CM ---
CM reviewed chart- OR today for debridement of amp stump
May need wound vac
Pt STR from [facility] and was receiving HD there MWF
No outpt HD clinic set up
Requested PT/OT evals to assist with determining dc needs
Anticipate further need to SNF care on dc with HD capability
CM will continue to follow for dc planning
Discharge Disposition- anticipate SNF with HD and possible wound vac needs (pt may not want to return back to [facility] per notes)
--- NOTE | 2023-08-25 16:30 | PTCARENOTE ---
2 units PRBC previously ordered in AM by vascular SUPERVISOR CYTOLOGY to hold for OR. This RN communicated with Allison vascular SUPERVISOR CYTOLOGY s/p R BKA washout and revision, stated patient did not receive blood in OR, states no indication for patient to receive blood at this
time.
--- NOTE | 2023-08-25 16:35 | W.PN.CD ---
Today's Communication / Plan
-
Plan for echo.
Resume Eliquis when surgically appropriate.
Currently on Amlodipine and Metoprolol.
Impression / Plan
-
Background -
68-year-old male with PMHx significant for ESRD on dialysis, type 2 diabetes, hypertension, lumbar osteomyelitis, PAD s/p right knee below amputation, depression with suicidal ideation in the past, GERD, C. difficile colitis, presents to the
hospital with stump reinfection. Cardiology consulted for new onset atrial fibrillation and preoperative evaluation.
Impression -
New onset atrial fibrillation-
- Currently on rate control, metoprolol
- [id number] score-4, high risk need anticoagulation.
- Currently Eliquis on hold, appropriate Eliquis dose for him would be 5 mg twice a day.
- Recommend resuming Eliquis 5 mg twice a day when surgically appropriate.
Hypertension-
-Well-controlled with metoprolol and amlodipine.
Chest x-ray findings concerning for mild interstitial pulmonary edema-
- unclear etiology could be likely of volume overload from ESRD.
- Will evaluate with echocardiogram in the a.m. tomorrow.
Elevated risk based on NsQiP, s/p surgery.
Subjective -
Post op doing well. No complaints.
Data reviewed -
EKG-08/24/2023-A-fib, likely new onset rate 75., Unchanged from 08/22/2023.
Chest x-ray-08/22/2023-mild interstitial pulmonary edema, marked cardiac silhouette enlargement compared to 07/07/2023. Questionable pericardial effusion.
Physical Exam
Vital Signs/Labs
Vital Signs
Temp Pulse Resp BP Pulse Ox
97.3 F 114 16 107/74 96
08/25/23 16:00 08/25/23 16:00 08/25/23 16:00 08/25/23 16:00 08/25/23 16:00
08/24/23 08/25/23 08/26/23
06:59 06:59 06:59
Actual Weight 84.907 kg 83.915 kg
08/25/23 07:22
08/25/23 07:22
PT 18.0 Sec (11.4-14.6) H 08/22/23 13:37
INR 1.51 08/22/23 13:37
APTT 57.5 Sec (23.4-35.0) H 08/22/23 13:37
Physical Exam
Constitutional: Comfortable
EENT: Other (Pallor)
Cardiovascular: Rhythm/rate is irregular, S1S2 is normal and Murmur/rub/gallop absent
Respiratory: Lungs clear to auscul.
Neuro/Psych: AO x 3
Data Reviewed
-
Date of Service: August 25, 2023
Labs: Labs Reviewed by me
[2023-08-25 16:57] LABS: Glucose - Point of Care 125 mg/dl (70-99)
[2023-08-25] MEDS: LOPRESSOR 25 MG PO (20:19)
[2023-08-25] MEDS: COLACE 100 MG PO (20:20)
[2023-08-25 21:56] LABS: Glucose - Point of Care 219 mg/dl (70-99)
[2023-08-26] VITALS (7 sets, daily range): BP systolic 101–122; BP diastolic 66–81; BMI 23.4
[2023-08-26] MEDS: ROXICODONE 5 MG PO ×2 (02:50→14:06)
[2023-08-26] MEDS: ZOSYN 50 IV ×3 (03:36→19:57)
--- NOTE | 2023-08-26 06:30 | PTCARENOTE ---
Addendum entered by Constance Harvey RN 08/26/23 06:53:
Patient total Dilaudid dose for overnight shift 3.1ml
Original Note:
Patient restless throughout most of nightshift d/t unrelieved pain to surgical site. SHEET PILE DRIVER OPERATOR infusing per MD order- refer to worklist. Patient removed jagjit wrap at change of shift, and did not allow RNs to redress compression tightly or elevate limb as
directed. Neurovascular checks intact. VSS
[2023-08-26 06:56] LABS: Glucose - Point of Care 160 mg/dl (70-99)
--- NOTE | 2023-08-26 07:56 | W.PN.VS ---
Addendum entered and electronically signed by Thong Gutierrez MD 08/26/23 08:19:
Seen and examined with MICHELLE Lam. Agree with findings as noted below. Debrided right BKA stump site clean. No purulence, no gross signs of infection. Plan/VAC placement today. Await labs (check white blood cell count and check hemoglobin). Seen
in conjunction with hospitalist.
Original Note:
Today's Communication / Plan
-
Patient seen and examined at bedside with Dr. Thong Gutierrez, below plan reviewed with attending.
Assessment/Plan
-
wound on bka, POD #1 Debridement/washout right below the knee amputation stump with pulse lavage irrigation. Debridement through skin/subcutaneous tissue/bone with approximately 2 to 3 cm tibial stump resection.
Plan:
Will transition from SEWING MACHINE REPAIRER HELPER to PO pain medication
Will apply wound vac to Right BKA open stump site
Wound care consult
Case management for dispo planning
Subjective Data
-
Date of Service: August 26, 2023
Patient seen and examined at bedside, offers no complaints. Reports adequate post operative pain management. Denies nausea, vomiting, fever, and chills.
Objective Data
-
Vital Signs
Temp Pulse Resp BP Pulse Ox
97.8 F 108 16 115/74 96
08/26/23 03:46 08/26/23 03:46 08/26/23 06:48 08/26/23 03:46 08/26/23 06:48
Intake and Output
08/25/23 08/26/23 08/27/23
06:59 06:59 06:59
Intake Total 1310 / 1310 1725 / 1725
Output Total 1195 / 1195 800 / 800
Balance 115 / 115 925 / 925
Intake:
Oral fluids 960 / 960 980 / 980
IV fluids (Total) 645 / 645
D5/0.45%NaCl 1,000 ml @ 40 mls/ 40 / 40
hr IV .Q24H PRN Rx#:[id number]
Ns 125 / 125
IV piggybacks 100 / 100 100 / 100
Blood Product Amount Infused ( 250 / 250
mL)
Packed Rbc Leukoreduced Unit 250 / 250
[id number]
Output:
Urine, [place] 520 / 520
Urine, Voided 675 / 675 800 / 800
Calcium 9.0 mg/dl (8.4-10.2) 08/25/23 07:22
Total Bilirubin 0.7 mg/dl (0.2-1.3) 08/22/23 13:37
AST 13 U/L (17-59) L 08/22/23 13:37
ALT < 10 U/L (0-50) 08/22/23 13:37
Alkaline Phosphatase 127 U/L (38-126) H 08/22/23 13:37
Total Protein 6.0 g/dl (6.3-8.2) L 08/22/23 13:37
Albumin 2.8 g/dl (3.5-5.0) L 08/22/23 13:37
Physical Exam
-
NAD, resting in bed comfortably
No tachycardia
No dyspnea on room air
ABD flat, non-distended
RLE BKA site dressing CDI, dressing changed by vascular surgery team
--- NOTE | 2023-08-26 08:03 | PHA.VAN.FU ---
Vancomycin Assessment / Plan
- Assessment
Hemodialysis Schedule: MWF
Last Hemodialysis performed: 08/24
In the past 24 hrs, patient has been: Afebrile
Concomitant Antimicrobials: piperacillin/tazobactam, vanco PO
- Dosing Plan
Dosing by Level: Hold off on dosing today
Dosing Comments: received 750mg yesterday with HD
- Monitoring Plan
Random Level: 08/26 prior to HD
- Follow Up
Pharmacy will continue to follow.
Vancomycin Follow UP
- -
Patient Age: 68
Patient Sex: Male
Vancomycin Day #: 3
Indication: Bone And Joint
Requesting Provider: Dr. Bhatt
Pertinent Antimicrobial Allergies:
NKDA
Height / Weight:
Height 6 ft 2.5 in
Actual Weight 83.688 kg
IBW in k.4
Adjusted BW in k
Pertinent Past Medical History: ESRD on HD NYASIAF, Carrie CESAR
- Vital Signs / Lab Results
Temp Pulse Resp BP Pulse Ox
97.9 F 88 18 119/72 97
08/26/23 07:15 08/26/23 07:15 08/26/23 07:15 08/26/23 07:15 08/26/23 07:15
Lab Results - Hematology
08/23/23 08/24/23 08/25/23
09:40 06:44 07:22
WBC 8.5 8.8 8.1
Lab Results - Chemistry
08/23/23 08/24/23 08/25/23
09:40 06:44 07:22
BUN 31 H 15 21 H
Creatinine 4.3 H* 3.0 H 3.9 H
Estimated Creat Clear 20 29 22
Microbiology Results
08/25/23 13:36 Gram Stain - Preliminary
Leg - Right
07/05/24 16:22 Wound Culture - Preliminary
Leg - Right Pseudomonas aeruginosa
Gram negative bacilli
Staphylococcus aureus
Enterococcus species
Gram Stain - Final
Therapeutic Drug Monitoring
Random Vancomycin 15.4 ug/ml 08/25/23 07:22
--- NOTE | 2023-08-26 08:47 | W.PN.CD ---
Addendum entered and electronically signed by Elvis Marie MD 08/26/23 12:00:
Patient seen and examined in collaboration with RISK SPECIALIST; agree with below.
-Okay to start Eliquis 5 mg twice daily today, per Vascular Surgery.
-Will discontinue aspirin/Plavix; will not keep patient on aspirin due to anemia.
-Increase metoprolol to tartrate to 50 mg twice daily; decrease amlodipine from 10 mg daily to 5 mg daily to allow more blood pressure room for increased beta-radhika dose to better manage heart rate.
-Echocardiogram today.
-Continue equipment monitor phototypesetting.
Original Note:
Today's Communication / Plan
-
Resumed patient on eliquis 5mg BID today.
Discontinue Aspirin and plavix.
Will change metoprolol tartare 25 to 50 BID, and reduce amlodipine to 5mg beginning tomorrow.
Echo pending.
Impression / Plan
-
Background -
68-year-old male with PMHx significant for ESRD on dialysis, type 2 diabetes, hypertension, lumbar osteomyelitis, PAD s/p right knee below amputation, depression with suicidal ideation in the past, GERD, C. difficile colitis, presents to the [facility] with stump reinfection. Cardiology consulted for new onset atrial fibrillation and preoperative evaluation.
Impression -
New onset atrial fibrillation-
- Currently on rate control, metoprolol
- [id number] score-4, high risk need anticoagulation.
- Currently Eliquis on hold, appropriate Eliquis dose for him would be 5 mg twice a day.
- Resumed patient on eliquis 5mg BID today.
- Discontinue Aspirin and plavix. Touch based with vascular surgery, appreciate inputs.
- Will change his metoprolol tartare 25 to 50 BID, and reduce amlodipine to 5mg beginning tomorrow.
Hypertension-
-Well-controlled with metoprolol and amlodipine.
Chest x-ray findings concerning for mild interstitial pulmonary edema-
- unclear etiology could be likely of volume overload from ESRD.
- Echocardiogram pending.
Elevated risk based on NsQiP, s/p surgery.
Subjective -
Post op day 2 doing well. No complaints.
Data reviewed -
Tele summary - 08/26/23 - Average HR - 85, Afib, highest HR >120
EKG-08/24/2023-A-fib, likely new onset rate 75., Unchanged from 08/22/2023.
Chest x-ray-08/22/2023-mild interstitial pulmonary edema, marked cardiac silhouette enlargement compared to 07/07/2023. Questionable pericardial effusion.
Physical Exam
Vital Signs/Labs
Vital Signs
Temp Pulse Resp BP Pulse Ox
97.9 F 88 18 119/72 97
08/26/23 07:15 08/26/23 07:15 08/26/23 07:15 08/26/23 07:15 08/26/23 07:15
08/25/23 08/26/23 08/27/23
06:59 06:59 06:59
Actual Weight 83.915 kg 83.688 kg
PT 18.0 Sec (11.4-14.6) H 08/22/23 13:37
INR 1.51 08/22/23 13:37
APTT 57.5 Sec (23.4-35.0) H 08/22/23 13:37
Physical Exam
Constitutional: Comfortable and Other (pallor present)
EENT: Moist mucous membranes
Cardiovascular: Pedal edema is absent, Rhythm/rate is irregular, S1S2 is normal and Murmur/rub/gallop absent
Neuro/Psych: AO x 3
Data Reviewed
-
Date of Service: August 26, 2023
EKG: Tracing Personally Visualized and interpreted
[2023-08-26] MEDS: COLACE PO (08:58)
[2023-08-26] MEDS: FIRVANQ 125 MG PO ×2 (08:58→19:58)
[2023-08-26] MEDS: PLAVIX PO (08:58)
[2023-08-26] MEDS: VITAMIN D3 (cholecalciferol) 25 MCG PO (08:58)
[2023-08-26] MEDS: PROTONIX 40 MG PO ×2 (08:58→19:58)
[2023-08-26] MEDS: NORVASC 5 MG PO (08:58)
[2023-08-26] MEDS: LOW STRENGTH ASPIRIN 81 MG PO (08:58)
[2023-08-26] MEDS: LIDOCAINE 4% PATCH 1 PATCH TOPICAL (08:59)
[2023-08-26] MEDS: NOVOLOG FLEXPEN-LOW RESISTANCE 1 UNITS SC ×3 (08:59→16:47)
[2023-08-26] MEDS: LOPRESSOR 25 MG PO ×2 (08:59→20:44)
[2023-08-26 09:10] LABS: Hematocrit 24.6 % (39.0-52.0); Hemoglobin 7.9 g/dL (13.0-18.0); Mean Corp Hgb Conc. 32.1 g/dL (33.0-37.0); Mean Corpuscular Hgb 28.7 pg (27.0-31.0); Mean Corpuscular Volume 89.5 fL (80.0-94.0); Mean Platelet Volume 8.6 fL (7.4-10.4); Platelet Count 503 10^3/uL (130-400); Red Blood Cell Count 2.75 10^6/uL (4.70-6.10); Red Cell Dist. Width 14.7 % (11.5-14.5); White Blood Cell Count 9.7 10^3/uL (4.8-10.8)
[2023-08-26 09:39] LABS: Blood Urea Nitrogen 16 mg/dl (9-20); Calcium 8.6 mg/dl (8.4-10.2); Carbon Dioxide 28 mmol/L (22-30); Chloride 96 mmol/L (98-107); Estimated Creatinine Clearance 29 ml/min; Glucose 132 mg/dl (70-99); Potassium 4.1 mmol/L (3.5-5.1); Sodium 132 mmol/L (135-145); eGFR 22.21
--- NOTE | 2023-08-26 10:14 | W.PN.UPDATE ---
Update Note
Progress Note Update
Wound VAC applied at bedside, patient tolerated.
12 x 5 x 2
Black foam, medium size spiral
Muscle layer, no exposed bone.
--- NOTE | 2023-08-26 10:30 | W.PN.NEPH.PH ---
Today's Communication / Plan
-
HD tomorrow
Assessment/Plan
-
Impression:
Infected right BKA stump (was discharged on 07/26/23 on vancomycin and cefazolin)
Tunneled right IJ catheter
End-stage renal disease Friday at [facility]
History of hypertension now hypotensive
Atrial fibrillation
Anemia
Peripheral vascular disease
Diabetes
History of epidural abscess and psoas abscess
Plan:
-HD tomorrow, will provide orders
-Maximize SARTHAK for anemia on dialysis
-1500 cc fluid restriction on admission, low potassium and low sodium renal diet
-dc planning
-
-
Date of Service: August 26, 2023
CC / HPI / ROS
-
Chief Complaint:
ESRD
History of Present Illness:
ESRD Friday
Hemodynamically
Remains on abx for stump wound infection
s/p I/D stump 08/24
Review of Systems:
No chest pain or shortness of breath
no fevers
Labs
-
Labs:
WBC 9.7 10^3/uL (4.8-10.8) 08/26/23 08:29
RBC 2.75 10^6/uL (4.70-6.10) L 08/26/23 08:29
Hgb 7.9 g/dL (13.0-18.0) L 08/26/23 08:29
Hct 24.6 % (39.0-52.0) L 08/26/23 08:29
Plt Count 503 10^3/uL (130-400) H 08/26/23 08:29
Sodium 132 mmol/L (135-145) L 08/26/23 08:
Potassium 4.1 mmol/L (3.5-5.1) 08/26/23 08:29
Chloride 96 mmol/L (98-107) L 08/26/23 08:29
Carbon Dioxide 28 mmol/L (22-30) 08/26/23 08:29
BUN 16 mg/dl (9-20) 08/26/23 08:29
Creatinine 3.0 mg/dL (0.7-1.3) H 08/26/23 08:29
eGFR 22.21 08/26/23 08:29
Glucose 132 mg/dl (70-99) H 08/26/23 08:29
Calcium 8.6 mg/dl (8.4-10.2) 08/26/23 08:29
Albumin 2.8 g/dl (3.5-5.0) L 08/22/23 13:37
Physical Exam
-
Vital Signs:
Vital Signs
Temp Pulse Resp BP Pulse Ox
97.9 F 88 18 119/72 97
08/26/23 07:15 08/26/23 08:59 08/26/23 07:15 08/26/23 08:59 08/26/23 07:15
Cardiovascular:: Regular rate and rhythm
Respiratory:: Bilateral: Coarse
Lung Excursion:: Normal
Abdomen:: Nontender and Soft
Bowel Sounds:: Normal
Extremity Edema:: None: Bilateral:
--- NOTE | 2023-08-26 11:00 | WOUNDNOTE ---
MARZENA RN NOTE: Patient is s/p debridement of R BKA stump by Dr. Gutierrez on 08/24, wound vac applied today by vascular trim installer and pa. Confirmed with PA Olga Lidia Lam that vascular will be changing wound vac while here and vac to continue at facility. Will update
[facility] with start date.
[2023-08-26 11:13] LABS: Glucose - Point of Care 198 mg/dl (70-99)
[2023-08-26] MEDS: DILAUDID 0.5 MG IV ×3 (11:38→20:49)
--- NOTE | 2023-08-26 11:56 | W.PN.ID1 ---
Date of Service
Date of Service: August 26, 2023
Today's Communication
- continue IV vancomycin and zosyn for now - will plan a course of therapy for skin/soft tissue infection when further culture data available
- follow clinically
Assessment / Plan
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
- wound cx: GNRs, moderate S aureus/enterococcus - lab will get IDs and sensi
- mrsa screen negative
- please sent cultures aerobic and anaerobic from the OR
- had further bone resected back to healthy tissue in the OR, unlikely to have residual osteomyelitis at this point
- continue IV vancomycin and zosyn for now - will plan a course of therapy for skin/soft tissue infection when further culture data available
- follow clinically
Colonization with C difficile
- continue oral vancomycin while on broad spectrum rx
Chief Complaint
-: Other (Surgical site infection)
Subjective / Review of Systems
afebrile
bp stable
without leukocytosis
cr stable
OR cultures aerobic and anaerobic pending
in the OR bone was clearly exposed - periosteal elevator used to removed periosteum off of exposed tibia, tibia transected 2-3 cm more proximally
Vital Signs / Physical Exam
Vital Signs
Vital Signs
Temp Pulse Resp BP Pulse Ox
97.6 F 100 18 113/76 98
08/26/23 11:38 08/26/23 11:38 08/26/23 11:38 08/26/23 11:38 08/26/23 11:38
Physical Exam
Constitutional: No Acute Distress
Cardiovascular: Regular Rate and S1/S2; Negative Murmur or Rub
Pulmonary: Clear and Symmetric; Negative Wheezes or Rales
Gastrointestinal: Soft, Non Tender, Non Distended and Normal Bowel Sounds
Extremities: Other (wound vac in place)
Skin: Warm and Dry; Negative Rash or Jaundice
Objective Data
Lab Data
Lab Results
08/26/23 08:29
08/26/23 08:29
PT 18.0 Sec (11.4-14.6) H 08/22/23 13:37
INR 1.51 08/22/23 13:37
APTT 57.5 Sec (23.4-35.0) H 08/22/23 13:37
Estimated Creat Clear 29 ml/min 08/26/23 08:29
Total Bilirubin 0.7 mg/dl (0.2-1.3) 08/22/23 13:37
AST 13 U/L (17-59) L 08/22/23 13:37
ALT < 10 U/L (0-50) 08/22/23 13:37
Alkaline Phosphatase 127 U/L (38-126) H 08/22/23 13:37
Most recent labs reviewed.
Micro Results:
08/22/23 16:22 Wound Culture - Preliminary
Leg - Right Pseudomonas aeruginosa
Gram negative bacilli
Staphylococcus aureus
Enterococcus species
Gram Stain - Final
08/25/23 13:36 Wound Culture - Pending
Leg - Right Gram Stain - Preliminary
08/25/23 13:36 Anaerobic Culture - Pending
Leg - Right
08/23/23 09:52 Nasal Screen MRSA (PCR) - Final
Nose MRSA not detected - performed by PCR methodology.
--- NOTE | 2023-08-26 12:08 | W.PN.HOSP.TC ---
Today's Communication/Plan
-
.
Assessment / Plan
Assessment / Plan
Physical Exam
General: Comfortable (On room air.) and Other (Pallor)
HEENT: Normocephalic, Anicteric
Respiratory: Clear; Negative Wheezes, Crackles or Rhonchi
Cardiac: S1/S2 and Irregular Rhythm; Negative Murmur or Rub
GI: Soft, Non Tender, Non Distended and Normal Bowel Sounds
Musculoskeletal: Edema (dressing,
Neuro: AO x 3 and No Motor Deficits
Psych: Calm
# Stump/ wound infection /recent right BKA 07/22/23
Status postdebridement/washout right lower extremity below the knee amputation stump with exertional tibial stump resection by Dr. Gutierrez on August 23, no complications reported
-Plan to continue with pain control and antibiotics
Patient was having problem with pain and pulled his dressing multiple times during the night. Discussed with vascular, plan to place wound VAC
Continue with wound care and pain control
Appreciate vascular, ID input
# End-stage renal disease on dialysis/hyponatremia
-Friday
-100 fluid restriction
-Nephrology consulted
# Anemia of chronic disease
-Hemoglobin borderline initially, now has decreased post dialysis 7.2-->7.5-->6.8
Status post 1 unit of blood transfusion before surgery
# recent C. Diff Colitis
-oral vanco initiated to prevent C diff infection
#Lumbar Osteomyelitis/Discitis
-was on Ancef until 08/08
#CAD: h/o PAD s/p RLE stenting
Resumed Eliquis
Echocardiogram showed LVEF 50-55%, mild TR, small to moderate pericardial effusion without hemodynamic compromise
# Essential hypertension
-Norvasc continue with parameters
# GERD
-PPI continued
# Hypotension
-Midodrine continued
#DVT prophylaxis
-SCD
#CODE status
-full code
Total time spent to see the patient, examine the patient, review data and lab results, and discuss the treatment plan with patient, nurse around 55 minutes
Anticipated Discharge: > 48 hours
Subjective/Interval History
-
Date of Service: August 26, 2023
Reports pain at surgery site
Night team: pt pulled his dressing few times at night
Objective Data
-
Labs:
Laboratory Results
08/26/23
08:29
WBC 9.7
Hgb 7.9 L
Hct 24.6 L
Plt Count 503 H
Sodium 132 L
Potassium 4.1
Chloride 96 L
Carbon Dioxide 28
BUN 16
Creatinine 3.0 H
Glucose 132 H
Calcium 8.6
Vital Signs:
Vital Signs
Temp Pulse Resp BP Pulse Ox
97.6 F 100 18 113/76 98
08/26/23 11:38 08/26/23 11:38 08/26/23 11:38 08/26/23 11:38 08/26/23 11:38
I&O
08/25/23 08/26/23 08/27/23
06:59 06:59 06:59
Intake Total 1310 / 1310 1725 / 1725
Output Total 1195 / 1195 800 / 800
Balance 115 / 115 925 / 925
--- NOTE | 2023-08-26 12:41 | PTCARENOTE ---
Patient's Dilaudid GRAVITY PROSPECTING OBSERVER HELPER pump dc'ed per vascular this AM at 0820, order acknowledged and patient unhooked from GRAVITY PROSPECTING OBSERVER HELPER pump shortly after by this RN at approximately 0900. Dilaudid GRAVITY PROSPECTING OBSERVER HELPER remaining amount wasted by this RN and Shara CHAPARRO at 1155, amount of
waste documented on yellow paper and sent down to pharmacy per protocol.
--- NOTE | 2023-08-26 15:03 | CM ---
Reviewed the chart notes and spoke with the patient at the bedside. The patient with wound vac. Discussed discharge plans. Plan is back to [facility] to continue with rehab and HD. Referral sent via [facility]. CM continues to be available
to patient/family and is monitoring medical plan for needs at discharge.
Plan: Discharge to [facility] when medically stable.
[2023-08-26 15:47] LABS: Glucose - Point of Care 185 mg/dl (70-99)
[2023-08-26] MEDS: ELIQUIS 5 MG PO (19:58)
[2023-08-26] MEDS: PEPCID 20 MG PO (21:07)
[2023-08-26 21:12] LABS: Glucose - Point of Care 177 mg/dl (70-99)
[2023-08-27] MEDS: ROXICODONE 5 MG PO (01:06)
[2023-08-27 03:31] VITALS: BP 120/73
[2023-08-27] MEDS: ZOSYN 50 IV ×2 (03:31→12:10)
[2023-08-27 06:00] VITALS: BMI 23.6
[2023-08-27] MEDS: ProAmatine 5 MG PO (07:18)
--- NOTE | 2023-08-27 07:37 | W.PN.VS ---
Addendum entered and electronically signed by Thong Gutierrez MD 08/27/23 07:51:
Seen and examined with MICHELLE Lam. Agree with findings as noted below. Right lower extremity [place] bandage dry. No blood staining. BKA stump is soft. VAC in place, minimal/scant drainage nonbloody. Plan/as discussed and noted below.
Original Note:
Today's Communication / Plan
-
Patient seen and examined at bedside with Dr. Thong Gutierrez, below plan reviewed with attending
Assessment/Plan
-
wound on bka, POD #2 Debridement/washout right below the knee amputation stump with pulse lavage irrigation. Debridement through skin/subcutaneous tissue/bone with approximately 2 to 3 cm tibial stump resection.
Plan:
Will adjust pain medication for improved management of breakthrough pain
Continue wound VAC, will place on F schedule, next VAC change Friday
Wound care consult
Case management for dispo planning
Subjective Data
-
Date of Service: August 27, 2023
Patient seen and examined at bedside, does report increased pain at time of examination at A site. Denies nausea, vomiting, fever, and chills.
Objective Data
-
Vital Signs
Temp Pulse Resp BP Pulse Ox
97.5 F 94 19 120/73 97
08/27/23 03:31 08/27/23 03:31 08/27/23 03:31 08/27/23 03:31 08/27/23 03:31
Intake and Output
08/26/23 08/27/23 08/28/23
06:59 06:59 06:59
Intake Total 1725 / 1725 900 / 900
Output Total 800 / 800 1025 / 1025 300 / 300
Balance 925 / 925 -125 / -125 -300 / -300
Intake:
Oral fluids 980 / 980 800 / 800
IV fluids (Total) 645 / 645
D5/0.45%NaCl 1,000 ml @ 40 mls/ 40 / 40
hr IV .Q24H PRN Rx#:[id number]
Ns 125 / 125
IV piggybacks 100 / 100 100 / 100
Output:
Urine, Voided 800 / 800 1025 / 1025 300 / 300
Calcium 8.6 mg/dl (8.4-10.2) 08/26/23 08:29
Total Bilirubin 0.7 mg/dl (0.2-1.3) 08/22/23 13:37
AST 13 U/L (17-59) L 08/22/23 13:37
ALT < 10 U/L (0-50) 08/22/23 13:37
Alkaline Phosphatase 127 U/L (38-126) H 08/22/23 13:37
Total Protein 6.0 g/dl (6.3-8.2) L 08/22/23 13:37
Albumin 2.8 g/dl (3.5-5.0) L 08/22/23 13:37
Physical Exam
-
NAD, resting in bed comfortably
No tachycardia
No dyspnea on room air
ABD flat, non-distended
RLE BKA site dressing CDI, wound VAC CDI holding appropriate suction
[2023-08-27 07:50] LABS: Hematocrit 25.2 % (39.0-52.0); Hemoglobin 8.1 g/dL (13.0-18.0); Mean Corp Hgb Conc. 32.1 g/dL (33.0-37.0); Mean Corpuscular Hgb 29.3 pg (27.0-31.0); Mean Corpuscular Volume 91.3 fL (80.0-94.0); Mean Platelet Volume 8.7 fL (7.4-10.4); Platelet Count 509 10^3/uL (130-400); Red Blood Cell Count 2.76 10^6/uL (4.70-6.10); Red Cell Dist. Width 14.6 % (11.5-14.5); White Blood Cell Count 10.1 10^3/uL (4.8-10.8)
[2023-08-27 08:01] VITALS: BP 112/79
[2023-08-27 08:04] LABS: Vancomycin Random 13.6 ug/ml
--- NOTE | 2023-08-27 08:08 | PHA.VAN.FU ---
Vancomycin Assessment / Plan
- Assessment
Hemodialysis Schedule: MWF
Last Hemodialysis performed: 08/24
WBC's are: WNL
In the past 24 hrs, patient has been: Afebrile
Concomitant Antimicrobials: piperacillin/tazobactam
- Assessment - Therapeutic Drug Monitoring
Random Level: pre-HD = 13.6
- Dosing Plan
Dosing by Level: Re-dose today (Vanc 750mg)
- Monitoring Plan
No level(s) ordered at this time: consider pre-HD level for Friday
- Follow Up
Pharmacy will continue to follow.
Vancomycin Follow UP
- -
Patient Age: 68
Patient Sex: Male
Vancomycin Day #: 4
Indication: Bone And Joint
Requesting Provider: Dr. Bhatt
Pertinent Antimicrobial Allergies:
NKDA
Height / Weight:
Height 6 ft 2.5 in
Actual Weight 84.595 kg
IBW in k.4
Adjusted BW in k
Pertinent Past Medical History: ESRD on HD Carrie SHEIKH
- Vital Signs / Lab Results
Temp Pulse Resp BP Pulse Ox
97.5 F 110 18 112/79 97
08/27/23 08:01 08/27/23 08:01 08/27/23 08:01 08/27/23 08:01 08/27/23 08:01
Lab Results - Hematology
08/25/23 08/26/23
07:22 08:29
WBC 8.1 9.7
Lab Results - Chemistry
08/25/23 08/26/23
07:22 08:29
BUN 21 H 16
Creatinine 3.9 H 3.0 H
Estimated Creat Clear 29
Microbiology Results
08/22/23 16:22 Wound Culture - Preliminary
Leg - Right Pseudomonas aeruginosa
Gram negative bacilli
Staphylococcus aureus
Enterococcus species
Gram Stain - Final
08/25/23 13:36 Anaerobic Culture - Preliminary
Leg - Right Culture pending. Anaerobic cultures are examined after 3
days incubation. Additional information to follow.
08/25/23 13:36 Gram Stain - Preliminary
Leg - Right
Therapeutic Drug Monitoring
Random Vancomycin 13.6 ug/ml 08/27/23 07:00
--- NOTE | 2023-08-27 08:28 | W.PN.CD ---
Addendum entered and electronically signed by Elvis Marie MD 08/27/23 13:13:
Patient seen in collaboration with PGY-2 resident; agree with below.
-No major events overnight.
-Patient still with A-fib with suboptimal heart rate control.
-IRRR, mildly tachycardic; clear lungs.
-LVEF 50-55% on echo yesterday.
-Increase Toprol-XL to 50 mg twice daily; discontinue amlodipine to allow blood pressure room for increase beta-radhika.
Original Note:
Today's Communication / Plan
-
Metoprolol succinate 50 mg twice daily.
Stop amlodipine.
Impression / Plan
-
Background -
68-year-old male with PMHx significant for ESRD on dialysis, type 2 diabetes, hypertension, lumbar osteomyelitis, PAD s/p right knee below amputation, depression with suicidal ideation in the past, GERD, C. difficile colitis, presents to the ""hospital with stump reinfection. Cardiology consulted for new onset atrial fibrillation and preoperative evaluation.
Impression -
New onset atrial fibrillation-
- Currently on rate control, metoprolol
- [id number] score-4, high risk need anticoagulation.
- Resumed patient on eliquis 5mg BID today.
- Discontinue Aspirin and plavix. Touch based with vascular surgery, appreciate inputs.
- Changed his metoprolol tartare 25 to metoprolol succinate 50 BID, and start amlodipine 5 Mg today.
Hypertension-
-Well-controlled with metoprolol.
HFpEF-LVEF 50 to 55%.
-As evidenced by echocardiogram
- no clinical evidence of heart failure on physical exam.
-Need close follow-up.
Pericardial effusion on echocardiogram-
-No clinical evidence of hemodynamic instability on physical exam.
-Chronic as evidenced by echo, no evidence of hemodynamic compromise and echo as well.
-Likely secondary to ESRD, patient on dialysis.
Elevated risk based on NsQiP, s/p surgery.
Subjective -
Post op day 2 doing well. No complaints.
Data reviewed -
Tele summary - 08/26/23 - Average HR - 102, Afib, highest HR >120
EKG-08/24/2023-A-fib, likely new onset rate 75., Unchanged from 08/22/2023.
Chest x-ray-08/22/2023-mild interstitial pulmonary edema, marked cardiac silhouette enlargement compared to 07/07/2023. Questionable pericardial effusion.
Echocardiogram-08/26/2023- -LVEF 50-55%, mild TR, small to moderate pericardial effusion, left pleural effusion, PASP-40 to 45 mmHg, mildly dilated aortic root at 4.3 cm, IVC dilated with no collapse.
Physical Exam
Vital Signs/Labs
Vital Signs
Temp Pulse Resp BP Pulse Ox
97.5 F 110 18 112/79 97
08/27/23 08:01 08/27/23 08:01 08/27/23 08:01 08/27/23 08:01 08/27/23 08:01
08/26/23 08/27/23 08/28/23
06:59 06:59 06:59
Actual Weight 83.688 kg 84.595 kg
08/27/23 07:00
PT 18.0 Sec (11.4-14.6) H 08/22/23 13:37
INR 1.51 08/22/23 13:37
APTT 57.5 Sec (23.4-35.0) H 08/22/23 13:37
Physical Exam
Constitutional: Comfortable
EENT: Moist mucous membranes
Cardiovascular: Pedal edema is absent, Rhythm/rate is irregular and S1S2 is normal
Respiratory: Lungs clear to auscul., Wheeze Absent, Crackles Absent and Rhonchi Absent
GI: Normal bowel sounds
Neuro/Psych: AO x 3
Data Reviewed
-
Date of Service: August 27, 2023
[2023-08-27] MEDS: MANNITOL 25% 12.5 GRAMS IV ×2 (08:30→10:15)
[2023-08-27] MEDS: RETACRIT 10000 UNITS IV (08:39)
[2023-08-27] MEDS: FLEXBUMIN 25% FOR HEMODIALYSIS 12.5 GRAMS IV ×2 (08:39→10:15)
[2023-08-27] MEDS: DILAUDID 4 MG PO ×3 (09:00→21:43)
[2023-08-27] MEDS: FIRVANQ 125 MG PO ×2 (09:00→20:17)
[2023-08-27] MEDS: VITAMIN D3 (cholecalciferol) 25 MCG PO (09:00)
[2023-08-27] MEDS: NEURONTIN 100 MG PO (09:00)
[2023-08-27] MEDS: PROTONIX 40 MG PO ×2 (09:00→20:16)
[2023-08-27] MEDS: ELIQUIS 5 MG PO ×2 (09:00→21:44)
[2023-08-27] MEDS: LIDOCAINE 4% PATCH 1 PATCH TOPICAL (09:01)
[2023-08-27] MEDS: TYLENOL 1000 MG PO ×3 (09:01→21:44)
[2023-08-27] MEDS: NORVASC PO (09:02)
[2023-08-27] MEDS: NOVOLOG FLEXPEN-LOW RESISTANCE SC ×3 (09:09→17:14)
[2023-08-27 09:10] LABS: Glucose - Point of Care 102 mg/dl (70-99)
[2023-08-27 09:42] LABS: Blood Urea Nitrogen 24 mg/dl (9-20); Calcium 8.7 mg/dl (8.4-10.2); Carbon Dioxide 26 mmol/L (22-30); Chloride 96 mmol/L (98-107); Estimated Creatinine Clearance 22 ml/min; Glucose 91 mg/dl (70-99); Sodium 131 mmol/L (135-145); eGFR 16.21
--- NOTE | 2023-08-27 09:45 | CM ---
Reviewed the chart notes and spoke with the patient. Wound vac information sent to [facility] via [facility]. CM continues to be available to patient/family and is monitoring medical plan for needs at discharge.
Plan: Discharge back to [facility]. No precert required.
--- NOTE | 2023-08-27 09:47 | W.PN.NEPH.HD ---
Assessment
-
Patient seen on dialysis
Systolic blood pressure at 113 at current UF
Progress Note - Hemodialysis
-
Date of Service: August 27, 2023
Duration: 30 minutes and 3 hours
Potassium Bath: 3
Calcium Bath: 2.5
Opti-Dialyzer: 160
Ultrafiltration: Other (2 kg as hemodynamically tolerated)
Blood Flow: 400
Dialysate Flow: 600
Heparin: None
EPO: 10,000
[2023-08-27] MEDS: VANCOCIN 150 IV (10:28)
[2023-08-27 11:19] LABS: Glucose - Point of Care 107 mg/dl (70-99)
[2023-08-27] MEDS: HEPARIN 4300 UNITS INTRACATH (11:19)
[2023-08-27] MEDS: TOPROL XL 50 MG PO ×2 (11:40→20:17)
[2023-08-27 11:50] VITALS: BP 117/78
--- NOTE | 2023-08-27 12:10 | W.PN.ID1 ---
Date of Service
Date of Service: August 27, 2023
Today's Communication
- start ciprofloxacin and metronidazole - renally dosed through 08/30 (7 day post operative course)
- continue oral vancomycin through 09/02
Assessment / Plan
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
ESRD on HD
- 08/24 OR cultures E cloacae, P aeruginosa, anaerobe pending
- had further bone resected back to healthy tissue in the OR, unlikely to have residual osteomyelitis at this point
- start ciprofloxacin and metronidazole - renally dosed through 08/30 (7 day post operative course)
- follow clinically
Colonization with C difficile
- continue oral vancomycin through 09/02
Chief Complaint
-: Other (Surgical site infection)
Subjective / Review of Systems
afebrile
bp stable
without leukocytosis
08/24 cultures enterobacter and pseudomonas - few - anaeorbic pending
wound vac in place
no complaints
Vital Signs / Physical Exam
Vital Signs
Vital Signs
Temp Pulse Resp BP Pulse Ox
97.7 F 103 18 117/78 97
08/27/23 11:50 08/27/23 11:50 08/27/23 11:50 08/27/23 11:50 08/27/23 11:50
Physical Exam
Constitutional: No Acute Distress and Chronically Ill
Cardiovascular: Regular Rate
Pulmonary: Symmetric, Rales and Non Labored
Gastrointestinal: Non Distended
Skin: Dry; Negative Rash or Jaundice
Lines: Other (wound vac)
Objective Data
Lab Data
Lab Results
08/27/23 07:00
08/27/23 07:00
PT 18.0 Sec (11.4-14.6) H 08/22/23 13:37
INR 1.51 08/22/23 13:37
APTT 57.5 Sec (23.4-35.0) H 08/22/23 13:37
Estimated Creat Clear 22 ml/min 08/27/23 07:00
Total Bilirubin 0.7 mg/dl (0.2-1.3) 08/22/23 13:37
AST 13 U/L (17-59) L 08/22/23 13:37
ALT < 10 U/L (0-50) 08/22/23 13:37
Alkaline Phosphatase 127 U/L (38-126) H 08/22/23 13:37
Most recent labs reviewed.
Micro Results:
08/22/23 16:22 Wound Culture - Final
Leg - Right Pseudomonas aeruginosa
Enterobacter cloacae
S aureus-Methicillin Sensitive
Enterococcus faecalis
Gram Stain - Final
08/25/23 13:36 Wound Culture - Preliminary
Leg - Right Enterobacter cloacae
Pseudomonas aeruginosa
Gram Stain - Preliminary
08/25/23 13:36 Anaerobic Culture - Preliminary
Leg - Right Culture pending. Anaerobic cultures are examined after 3
days incubation. Additional information to follow.
08/23/23 09:52 Nasal Screen MRSA (PCR) - Final
Nose MRSA not detected - performed by PCR methodology.
--- NOTE | 2023-08-27 12:37 | W.PN.HOSP.TC ---
Today's Communication/Plan
-
dc planning
Assessment / Plan
Assessment / Plan
Physical Exam
General: Comfortable (On room air.) and Other (Pallor)
HEENT: Normocephalic, Anicteric
Respiratory: Clear; Negative Wheezes, Crackles or Rhonchi
Cardiac: S1/S2 and Irregular Rhythm; Negative Murmur or Rub
GI: Soft, Non Tender, Non Distended and Normal Bowel Sounds
Musculoskeletal: Edema (dressing,
Neuro: AO x 3 and No Motor Deficits
Psych: Calm
# Stump/ wound infection /recent right BKA 07/22/23
Status postdebridement/washout right lower extremity below the knee amputation stump with exertional tibial stump resection by Dr. Gutierrez on August 23, no complications reported
-Plan to continue with pain control and antibiotics
OR cultures so far + cultures E cloacae, P aeruginosa.
Patient was having problem with pain and pulled his dressing multiple times during the night. Discussed with vascular, plan to place wound VAC
Continue with wound care and pain control, will stop oxy, will do Dilaudid & Tylenol and PRN
Appreciate vascular, ID input
# End-stage renal disease on dialysis/hyponatremia
-Friday
-100 fluid restriction
-Nephrology consulted
# Anemia of chronic disease
-Hemoglobin borderline initially, now has decreased post dialysis 7.2-->7.5-->6.8
Status post 1 unit of blood transfusion before surgery
# recent C. Diff Colitis
-oral vanco initiated to prevent C diff infection
#Lumbar Osteomyelitis/Discitis
-was on Ancef until 08/08
#CAD: h/o PAD s/p RLE stenting
Resumed Eliquis
Echocardiogram showed LVEF 50-55%, mild TR, small to moderate pericardial effusion without hemodynamic compromise
# Essential hypertension
-Norvasc continue with parameters
# GERD
-PPI continued
# Hypotension
-Midodrine continued
#DVT prophylaxis
-SCD
#CODE status
-full code
Total time spent to see the patient, examine the patient, review data and lab results, and discuss the treatment plan with patient, consultants, nurse around 57 minutes
Anticipated Discharge: Within 24 hours
Subjective/Interval History
-
Date of Service: August 27, 2023
Seen earlier
Pain in right stump area
Objective Data
-
Labs:
Laboratory Results
08/27/23
07:00
WBC 10.1
Hgb 8.1 L
Hct 25.2 L
Plt Count 509 H
Sodium 131 L
Potassium 4.0
Chloride 96 L
Carbon Dioxide 26
BUN 24 H
Creatinine 3.9 H
Glucose 91
Calcium 8.7
Vital Signs:
Vital Signs
Temp Pulse Resp BP Pulse Ox
97.7 F 103 18 117/78 97
08/27/23 11:50 08/27/23 11:50 08/27/23 11:50 08/27/23 11:50 08/27/23 11:50
I&O
08/26/23 08/27/23 08/28/23
06:59 06:59 06:59
Intake Total 1725 / 1725 900 / 900
Output Total 800 / 800 1025 / 1025 300 / 300
Balance 925 / 925 -125 / -125 -300 / -300
[2023-08-27] MEDS: DILAUDID 0.5 MG IV ×2 (13:07→22:36)
[2023-08-27] MEDS: CIPRO 500 MG PO (14:57)
[2023-08-27 15:38] VITALS: BP 123/69
[2023-08-27 16:56] LABS: Glucose - Point of Care 110 mg/dl (70-99)
[2023-08-27] MEDS: FLAGYL 500 MG PO (20:16)
[2023-08-27 21:48] LABS: Glucose - Point of Care 121 mg/dl (70-99)
[2023-08-27 23:34] VITALS: BP 117/74
[2023-08-28 06:00] VITALS: BMI 23.2
[2023-08-28 07:50] VITALS: BP 138/85
[2023-08-28] MEDS: FIRVANQ 125 MG PO ×2 (08:04→19:56)
[2023-08-28] MEDS: LIDOCAINE 4% PATCH 1 PATCH TOPICAL (08:04)
[2023-08-28] MEDS: TYLENOL 1000 MG PO ×3 (08:05→22:12)
[2023-08-28] MEDS: TOPROL XL 50 MG PO ×2 (08:05→19:57)
[2023-08-28] MEDS: FLAGYL 500 MG PO (08:05)
[2023-08-28] MEDS: VITAMIN D3 (cholecalciferol) 25 MCG PO (08:05)
[2023-08-28] MEDS: DILAUDID 4 MG PO ×3 (08:05→22:12)
[2023-08-28] MEDS: PROTONIX 40 MG PO ×2 (08:05→19:56)
[2023-08-28] MEDS: ELIQUIS 5 MG PO ×2 (08:05→19:56)
[2023-08-28 08:13] LABS: Glucose - Point of Care 108 mg/dl (70-99)
[2023-08-28 08:14] LABS: Hematocrit 26.2 % (39.0-52.0); Hemoglobin 8.4 g/dL (13.0-18.0); Mean Corp Hgb Conc. 32.1 g/dL (33.0-37.0); Mean Corpuscular Hgb 29.9 pg (27.0-31.0); Mean Corpuscular Volume 93.2 fL (80.0-94.0); Mean Platelet Volume 8.4 fL (7.4-10.4); Platelet Count 521 10^3/uL (130-400); Red Blood Cell Count 2.81 10^6/uL (4.70-6.10); Red Cell Dist. Width 14.6 % (11.5-14.5); White Blood Cell Count 7.9 10^3/uL (4.8-10.8)
[2023-08-28] MEDS: NOVOLOG FLEXPEN-LOW RESISTANCE SC ×3 (08:15→17:30)
--- NOTE | 2023-08-28 09:08 | W.PN.HOSP.TC ---
Today's Communication/Plan
-
dc planning
c/w Tylenol + Dilaudid
Assessment / Plan
Assessment / Plan
Physical Exam
General: Comfortable (On room air.) and Other (Pallor)
HEENT: Normocephalic, Anicteric
Respiratory: Clear; Negative Wheezes, Crackles or Rhonchi
Cardiac: S1/S2 and Irregular Rhythm; Negative Murmur or Rub
GI: Soft, Non Tender, Non Distended and Normal Bowel Sounds
Musculoskeletal: Edema (dressing,
Neuro: AO x 3 and No Motor Deficits
Psych: Calm
# Pain at surgery site
Better controlled with current regimen with Dilaudid and Tylenol
# Stump/ wound infection /recent right BKA 07/22/23
Status postdebridement/washout right lower extremity below the knee amputation stump with exertional tibial stump resection by Dr. Gutierrez on August 23, no complications reported
OR cultures so far + cultures E cloacae, P aeruginosa.
Patient was having problem with pain and pulled his dressing multiple times during the night. Discussed with vascular, plan to place wound VAC
Continue with wound care and pain control. Abx changes to Flagyl and ciprofloxacin through 08/30.
Appreciate vascular, ID input
# End-stage renal disease on dialysis/hyponatremia
-Friday
- he does not want restricted diet, he understand his salt and fluid intake should be limited but wants to make his diet choices, will chnage to regular diet
-Nephrology consulted
# Anemia of chronic disease
Status post 1 unit of blood transfusion before surgery
# recent C. Diff Colitis
-oral vanco initiated to prevent C diff infection
#Lumbar Osteomyelitis/Discitis
-was on Ancef until 08/08
#CAD: h/o PAD s/p RLE stenting
Resumed Eliquis
Echocardiogram showed LVEF 50-55%, mild TR, small to moderate pericardial effusion without hemodynamic compromise
# Essential hypertension
Toprol
No Norvasc
# GERD
-PPI continued
# Hypotension
-Midodrine continued as needed
#DVT prophylaxis
-SCD
#CODE status
-full code
Total time spent to see the patient, examine the patient, review data and lab results, and discuss the treatment plan with patient, nurse around 57 minutes
Anticipated Discharge: 24 - 48 hours
Subjective/Interval History
-
Date of Service: August 28, 2023
Objective Data
-
Labs:
Laboratory Results
08/28/23
07:35
WBC 7.9
Hgb 8.4 L
Hct 26.2 L
Plt Count 521 H
Vital Signs:
Vital Signs
Temp Pulse Resp BP Pulse Ox
97.6 F 113 16 117/74 97
08/28/23 07:50 08/28/23 07:50 08/28/23 07:50 08/28/23 08:05 08/28/23 07:50
I&O
08/27/23 08/28/23 08/29/23
06:59 06:59 06:59
Intake Total 900 / 900 1220 / 1220
Output Total 1025 / 1025 1525 / 1525
Balance -125 / -125 -305 / -305
--- NOTE | 2023-08-28 10:20 | W.PN.CD ---
Today's Communication / Plan
-
- Continue Toprol-XL 50 mg BID.
- Continue Eliquis 5 mg BID.
- No further cardiac recommendations at this time; outpatient follow-up with Cardiology.
Impression / Plan
-
Background -
68-year-old male with PMHx significant for ESRD on dialysis, type 2 diabetes, hypertension, lumbar osteomyelitis, PAD s/p right knee below amputation, depression with suicidal ideation in the past, GERD, C. difficile colitis, presents to the [facility] with stump reinfection. Cardiology consulted for new onset atrial fibrillation and preoperative evaluation.
Impression -
New onset paroxysmal atrial fibrillation-
- Continue Toprol-XL 50 mg BID.
- [id number] score-4, high risk need anticoagulation.
- Continue Eliquis 5 mg BID.
- Aspirin and Plavix discontinued.
Hypertension-
-Remains controlled with metoprolol; amlodipine was discontinued.
HFpEF-LVEF 50 to 55%.
-Compensated on examination.
-No standing diuretic needed.
Pericardial effusion on echocardiogram-
-No clinical evidence of hemodynamic instability on physical exam.
-Likely secondary to ESRD, patient on dialysis.
Subjective -
No major events. No cardiac complaints this a.m.
Data reviewed -
Tele summary - 08/26/23 - Average HR - 102, Afib, highest HR >120
EKG-08/24/2023-A-fib, likely new onset rate 75., Unchanged from 08/22/2023.
Chest x-ray-08/22/2023-mild interstitial pulmonary edema, marked cardiac silhouette enlargement compared to 07/07/2023. Questionable pericardial effusion.
Echocardiogram-08/26/2023- -LVEF 50-55%, mild TR, small to moderate pericardial effusion, left pleural effusion, PASP-40 to 45 mmHg, mildly dilated aortic root at 4.3 cm, IVC dilated with no collapse.
Physical Exam
Vital Signs/Labs
Vital Signs
Temp Pulse Resp BP Pulse Ox
97.6 F 113 16 117/74 97
08/28/23 07:50 08/28/23 07:50 08/28/23 07:50 08/28/23 08:05 08/28/23 07:50
08/27/23 08/28/23 08/29/23
06:59 06:59 06:59
Actual Weight 84.595 kg 82.871 kg
08/28/23 07:35
08/27/23 07:00
PT 18.0 Sec (11.4-14.6) H 08/22/23 13:37
INR 1.51 08/22/23 13:37
APTT 57.5 Sec (23.4-35.0) H 08/22/23 13:37
Physical Exam
Constitutional: No acute distress and Comfortable
EENT: Anicteric
Cardiovascular: Pedal edema is absent, Systolic murmur absent, Rhythm/rate is irregular and S1S2 is normal
Respiratory: Respiratory effort normal and Lungs clear to auscul.
GI: Soft
Neuro/Psych: AO x 3
Other: Skin (warm)
Data Reviewed
-
Date of Service: August 28, 2023
Medical Tests (PFT, Pathology etc): Discussed with Patient
Labs: Labs Reviewed by me
--- NOTE | 2023-08-28 11:07 | W.PN.ID1 ---
Date of Service
Date of Service: August 28, 2023
Today's Communication
- ciprofloxacin and augmentin - renally dosed through 08/30 (7 day post operative course)
- stop metronidazole
- continue oral vancomycin through 09/02
- follow up with PCP
Assessment / Plan
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
ESRD on HD
- 08/24 OR cultures E cloacae, P aeruginosa, E faecalis, anaerobe pending
- had further bone resected back to healthy tissue in the OR, unlikely to have residual osteomyelitis at this point
- ciprofloxacin and augmentin - renally dosed through 08/30 (7 day post operative course)
- stop metronidazole
- follow up with PCP
Colonization with C difficile
- continue oral vancomycin through 09/02
Chief Complaint
-: Other (Surgical site infection)
Subjective / Review of Systems
afebrile
bp stable
without leukocytosis, mild thrombocytosis ongoing
wound vac in place
Vital Signs / Physical Exam
Vital Signs
Vital Signs
Temp Pulse Resp BP Pulse Ox
97.6 F 113 16 117/74 97
08/28/23 07:50 08/28/23 07:50 08/28/23 07:50 08/28/23 08:05 08/28/23 07:50
Physical Exam
Constitutional: No Acute Distress
Cardiovascular: Regular Rate and S1/S2; Negative Murmur or Rub
Pulmonary: Clear and Symmetric; Negative Wheezes or Rales
Gastrointestinal: Soft, Non Tender, Non Distended and Normal Bowel Sounds
Skin: Warm and Dry; Negative Rash or Jaundice
Objective Data
Lab Data
Lab Results
08/28/23 07:35
08/27/23 07:00
PT 18.0 Sec (11.4-14.6) H 08/22/23 13:37
INR 1.51 08/22/23 13:37
APTT 57.5 Sec (23.4-35.0) H 08/22/23 13:37
Estimated Creat Clear 22 ml/min 08/27/23 07:00
Total Bilirubin 0.7 mg/dl (0.2-1.3) 08/22/23 13:37
AST 13 U/L (17-59) L 08/22/23 13:37
ALT < 10 U/L (0-50) 08/22/23 13:37
Alkaline Phosphatase 127 U/L (38-126) H 08/22/23 13:37
Most recent labs reviewed.
Micro Results:
08/25/23 13:36 Wound Culture - Preliminary
Leg - Right Enterobacter cloacae
Pseudomonas aeruginosa
Enterococcus faecalis
Gram Stain - Preliminary
08/22/23 16:22 Wound Culture - Final
Leg - Right Pseudomonas aeruginosa
Enterobacter cloacae
S aureus-Methicillin Sensitive
Enterococcus faecalis
Gram Stain - Final
08/25/23 13:36 Anaerobic Culture - Preliminary
Leg - Right Culture pending. Anaerobic cultures are examined after 3
days incubation. Additional information to follow.
08/23/23 09:52 Nasal Screen MRSA (PCR) - Final
Nose MRSA not detected - performed by PCR methodology.
--- NOTE | 2023-08-28 11:30 | W.PN.NEPH.PH ---
Today's Communication / Plan
-
Hemodialysis tomorrow
Assessment/Plan
-
Impression:
Infected right BKA stump (was discharged on 07/26/23 on vancomycin and cefazolin)
Tunneled right IJ catheter
End-stage renal disease Friday at [place] [facility]
History of hypertension now hypotensive
Atrial fibrillation
Anemia
Peripheral vascular disease
Diabetes
History of epidural abscess and psoas abscess
Plan:
-HD tomorrow, will provide orders
-Maximize SARTHAK for anemia on dialysis
-1500 cc fluid restriction low potassium and low sodium renal diet
-dc planning
-
-
Date of Service: August 28, 2023
CC / HPI / ROS
-
Chief Complaint:
ESRD
History of Present Illness:
ESRD Friday
Hemodynamically
Remains on abx for stump wound infection
s/p I/D stump 08/24
Review of Systems:
No chest pain or shortness of breath
no fevers
Labs
-
Labs:
WBC 7.9 10^3/uL (4.8-10.8) 08/28/23 07:35
RBC 2.81 10^6/uL (4.70-6.10) L 08/28/23 07:35
Hgb 8.4 g/dL (13.0-18.0) L 08/28/23 07:35
Hct 26.2 % (39.0-52.0) L 08/28/23 07:35
Plt Count 521 10^3/uL (130-400) H 08/28/23 07:35
Sodium 131 mmol/L (135-145) L 08/27/23 07:00
Potassium 4.0 mmol/L (3.5-5.1) 08/27/23 07:00
Chloride 96 mmol/L (98-107) L 08/27/23 07:00
Carbon Dioxide 26 mmol/L (22-30) 08/27/23 07:00
BUN 24 mg/dl (9-20) H 08/27/23 07:00
Creatinine 3.9 mg/dL (0.7-1.3) H 08/27/23 07:00
eGFR 16.21 08/27/23 07:00
Glucose 91 mg/dl (70-99) 08/27/23 07:00
Calcium 8.7 mg/dl (8.4-10.2) 08/27/23 07:00
Albumin 2.8 g/dl (3.5-5.0) L 08/22/23 13:37
Physical Exam
-
Vital Signs:
Vital Signs
Temp Pulse Resp BP Pulse Ox
97.6 F 113 16 117/74 97
08/28/23 07:50 08/28/23 07:50 08/28/23 07:50 08/28/23 08:05 08/28/23 07:50
Cardiovascular:: Regular rate and rhythm
Respiratory:: Bilateral: Coarse
Lung Excursion:: Normal
Abdomen:: Nontender and Soft
Bowel Sounds:: Normal
Extremity Edema:: None: Bilateral: and None: Right: (Right BKA)
Mccloud Catheter: No
[2023-08-28 12:13] LABS: Glucose - Point of Care 105 mg/dl (70-99)
[2023-08-28 12:20] VITALS: BP 141/99; PULSE 118
[2023-08-28 12:47] VITALS: BP 141/99; PULSE 118
[2023-08-28] MEDS: CIPRO 500 MG PO (13:03)
[2023-08-28] MEDS: AUGMENTIN 500 MG/125 MG 1 TABLET PO (13:03)
--- NOTE | 2023-08-28 14:13 | CM ---
Reviewed the chart notes. Patient for HD tomorrow. CM continues to be available to patient/family and is monitoring medical plan for needs at discharge.
Plan: Discharge back to [facility] with wound vac when medically stable.
[2023-08-28 15:50] VITALS: BP 121/68
[2023-08-28 17:27] LABS: Glucose - Point of Care 126 mg/dl (70-99)
[2023-08-28 20:58] LABS: Glucose - Point of Care 132 mg/dl (70-99)
[2023-08-28] MEDS: PEPCID 20 MG PO (22:13)
[2023-08-28] MEDS: DILAUDID 0.5 MG IV (23:16)
[2023-08-28 23:37] VITALS: BP 121/76
[2023-08-29 06:00] VITALS: BMI 23.3
--- NOTE | 2023-08-29 07:47 | WOUNDNOTE ---
WOC RN note: Confirmed with Olga Lidia Lam that vascular service is changing patient's R BKA wound vac dressing today and if patient is not discharged on or before Friday, wound care nurse will change vac dressing on Friday. Olga Lidia stated small black vac
dressing kit is the suggested vac dressing size.
[2023-08-29] MEDS: FIRVANQ 125 MG PO (07:57)
[2023-08-29] MEDS: DILAUDID 4 MG PO ×2 (07:58→15:15)
[2023-08-29] MEDS: ELIQUIS 5 MG PO (07:58)
[2023-08-29] MEDS: NEURONTIN 100 MG PO (07:58)
[2023-08-29] MEDS: PROTONIX 40 MG PO (07:59)
[2023-08-29] MEDS: LIDOCAINE 4% PATCH 1 PATCH TOPICAL (07:59)
[2023-08-29] MEDS: TYLENOL 1000 MG PO ×2 (07:59→15:15)
[2023-08-29 08:00] VITALS: BP 140/78
[2023-08-29] MEDS: TOPROL XL PO (08:00)
[2023-08-29] MEDS: ProAmatine 2.5 MG PO (08:02)
[2023-08-29 08:13] LABS: Glucose - Point of Care 97 mg/dl (70-99)
[2023-08-29] MEDS: NOVOLOG FLEXPEN-LOW RESISTANCE SC ×3 (08:13→17:18)
[2023-08-29 08:33] LABS: Carbon Dioxide 28 mmol/L (22-30); Chloride 99 mmol/L (98-107); Potassium 3.7 mmol/L (3.5-5.1); Sodium 135 mmol/L (135-145)
[2023-08-29] MEDS: FLEXBUMIN 25% FOR HEMODIALYSIS 12.5 GRAMS IV ×2 (09:13→10:20)
[2023-08-29] MEDS: RETACRIT 10000 UNITS IV (09:14)
--- NOTE | 2023-08-29 09:26 | W.PN.HOSP.TC ---
Addendum entered and electronically signed by Valeriano Peres MD 08/29/23 15:45:
Addendum
Patient underwent dialysis without complications. Hemodynamically stable and pain is controlled and his leg
Discussed with vascular, instructions for wound care/wound VAC
Discussed with casework manager.
Total discharge time spent to see the patient, examine the patient, review data and lab results, and discuss the discharge plan with patient, casework manager, nurse around 65 minutes
Original Note:
Today's Communication/Plan
-
dc planning
Assessment / Plan
Assessment / Plan
Physical Exam
General: Comfortable (On room air.) and Other (Pallor)
HEENT: Normocephalic, Anicteric
Respiratory: Clear; Negative Wheezes, Crackles or Rhonchi
Cardiac: S1/S2 and Irregular Rhythm; Negative Murmur or Rub
GI: Soft, Non Tender, Non Distended and Normal Bowel Sounds
Musculoskeletal: Edema (dressing,
Neuro: AO x 3 and No Motor Deficits
Psych: Calm
# Pain at surgery site
Better controlled with current regimen with Dilaudid and Tylenol
# Stump/ wound infection /recent right BKA 07/22/23
Status postdebridement/washout right lower extremity below the knee amputation stump with exertional tibial stump resection by Dr. Gutierrez on August 23, no complications reported
OR cultures so far + cultures E cloacae, P aeruginosa.
Patient was having problem with pain and pulled his dressing multiple times during the night. Discussed with vascular, plan to place wound VAC
Continue with wound care and pain control. Abx changed to Flagyl and ciprofloxacin through 08/30.
Appreciate vascular, ID input
# End-stage renal disease on dialysis/hyponatremia
-Friday
- he does not want restricted diet, he understand his salt and fluid intake should be limited but wants to make his diet choices, will chnage to regular diet
-Nephrology consulted
# Anemia of chronic disease
Status post 1 unit of blood transfusion before surgery
# recent C. Diff Colitis
-oral vanco initiated to prevent C diff infection
#Lumbar Osteomyelitis/Discitis
-was on Ancef until 08/08
#CAD: h/o PAD s/p RLE stenting
Resumed Eliquis
Echocardiogram showed LVEF 50-55%, mild TR, small to moderate pericardial effusion without hemodynamic compromise
# Essential hypertension
Toprol
No Norvasc
# GERD
-PPI continued
# Hypotension
-Midodrine continued as needed
#DVT prophylaxis
-SCD
#CODE status
-full code
Total time spent to see the patient, examine the patient, review data and lab results, and discuss the treatment plan with patient, nurse around 57 minutes
Anticipated Discharge: Today
Subjective/Interval History
-
Date of Service: August 29, 2023
No chest pain
No sob
Agreeable to discharge
Objective Data
-
Labs:
Laboratory Results
08/29/23
07:45
Hgb 8.0 L
Hct 25.0 L
Sodium 135
Potassium 3.7
Chloride 99
Carbon Dioxide 28
Vital Signs:
Vital Signs
Temp Pulse Resp BP Pulse Ox
97.5 F 93 18 139/78 98
08/29/23 08:00 08/29/23 08:02 08/29/23 08:00 08/29/23 08:02 08/29/23 08:00
I&O
08/28/23 08/29/23 08/30/23
06:59 06:59 06:59
Intake Total 1220 / 1220 780 / 780
Output Total 1525 / 1525 1300 / 1300
Balance -305 / -305 -520 / -520
--- NOTE | 2023-08-29 09:51 | W.PN.NEPH.HD ---
Assessment
-
Seen on HD. no complaints. VSS, access ok
Progress Note - Hemodialysis
-
Date of Service: August 29, 2023
Duration: 30 minutes and 3 hours
Potassium Bath: 3
Calcium Bath: 2.5
Opti-Dialyzer: 160
Ultrafiltration: Other (2kg)
Blood Flow: 400
Dialysate Flow: 600
Heparin: no
EPO: 10149 units
--- NOTE | 2023-08-29 11:14 | CM ---
Addendum entered by Renae Thorne RN 08/29/23 14:32:
CM spoke with [facility] admissions liaison, patient's wheelchair to be picked up by [facility] tomorrow (Friday).
Medical necessity and transport forms on chart.
Original Note:
Reviewed the chart notes and spoke with the patient at the bedside. IMM signed and placed on chart. CM continues to be available to patient/family and is monitoring medical plan for needs at discharge.
Plan: Discharge back to [facility].
Call report to: [phone]
Fax report to: [phone]
[2023-08-29] MEDS: HEPARIN 4200 UNITS INTRACATH (11:37)
[2023-08-29 11:58] LABS: Glucose - Point of Care 89 mg/dl (70-99)
[2023-08-29] MEDS: AUGMENTIN 500 MG/125 MG 1 TABLET PO (12:16)
[2023-08-29] MEDS: VITAMIN D3 (cholecalciferol) 25 MCG PO (12:16)
--- NOTE | 2023-08-29 13:30 | W.PN.VS ---
Today's Communication / Plan
-
See below.
Assessment/Plan
-
wound on bka, POD #4 Debridement/washout right below the knee amputation stump with pulse lavage irrigation. Debridement through skin/subcutaneous tissue/bone with approximately 2 to 3 cm tibial stump resection.
Plan:
Continue wound VAC, will place on F schedule, removed today by this provider as patient is scheduled for discharge to shelter facility. Wet-to-dry dressing placed with loose Bolivar wrap per patient request. Upon arrival to [facility] wound VAC
should be reestablished.
Follow-up placed in discharge instructions
Safe for discharge from vascular surgery perspective
Physical exam and plan reviewed with attending Dr. Thong Gutierrez who agrees with plan
Subjective Data
-
Date of Service: August 29, 2023
Patient seen and examined at bedside, reports improved postoperative pain management. Denies nausea, vomiting, fever, and chills.
Objective Data
-
Vital Signs
Temp Pulse Resp BP Pulse Ox
97.5 F 93 18 139/78 98
08/29/23 08:00 08/29/23 08:02 08/29/23 08:00 08/29/23 08:02 08/29/23 08:00
Intake and Output
08/28/23 08/29/23 08/30/23
06:59 06:59 06:59
Intake Total 1220 / 1220 780 / 780
Output Total 1525 / 1525 1300 / 1300
Balance -305 / -305 -520 / -520
Intake:
Oral fluids 1140 / 1140 780 / 780
IV fluids (Total) 30 / 30
IV piggybacks 50 / 50
Output:
Urine, Voided 1525 / 1525 1300 / 1300
Other:
How many times incontinent 1
MODERATE amount urine
Lab Results
08/29/23 07:45
08/29/23 07:45
Calcium 8.7 mg/dl (8.4-10.2) 08/27/23 07:00
Total Bilirubin 0.7 mg/dl (0.2-1.3) 08/22/23 13:37
AST 13 U/L (17-59) L 08/22/23 13:37
ALT < 10 U/L (0-50) 08/22/23 13:37
Alkaline Phosphatase 127 U/L (38-126) H 08/22/23 13:37
Total Protein 6.0 g/dl (6.3-8.2) L 08/22/23 13:37
Albumin 2.8 g/dl (3.5-5.0) L 08/22/23 13:37
Physical Exam
-
NAD, resting in bed comfortably
No tachycardia
No dyspnea on room air
ABD flat, non-distended
RLE BKA site dressing CDI, wound VAC CDI holding appropriate suction, removed by this vascular surgery provider in anticipation for discharge today, evidence of good granulation tissue, replaced with wet-to-dry dressing
[2023-08-29] MEDS: DILAUDID 0.5 MG IV (13:36)
[2023-08-29] MEDS: CIPRO 500 MG PO (13:50)
[2023-08-29 15:02] VITALS: BP 135/79
--- NOTE | 2023-08-29 15:29 | W.DCSUMMARY ---
Discharge Summary
Discharge Data
Date of Admission: 08/22/23
Date of Discharge: 08/29/23
-
Pending Results: No
Hospital Course
68 years old male who was sent to the emergency room with right below-knee amputation site infection. Patient was seen in the vascular surgery office where there was wound breakdown and drainage. Patient did not have fever. No leukocytosis.
Patient was started on empiric intravenous antibiotics. Eliquis was held. He was seen by infectious diseases system sales consultant and vascular surgery. Arterial ultrasound showed patent right common femoral artery with normal triphasic waveform. Vascular
surgery recommended debridement of the wound with possibility need for above-knee amputation if healing would not happen. Patient received 1 unit of blood transfusion presurgery due to history of anemia of chronic disease. Patient underwent wound
debridement with washout by Dr. Gutierrez on 08/25/23. OR culture was positive for E cloacae, P aeruginosa, E faecalis. Wound VAC was applied to the wound. Patient complained of significant pain at surgery site and was given Tylenol and Dilaudid with
good pain control. Patient received regular dialysis and was followed by bioinformatician. Patient was seen by solar fabrication technician who optimized his his treatment with continuation of Eliquis, stopping aspirin and Plavix, stopping amlodipine and increasing
dose of Toprol to better control his heart rate. Patient remained hemodynamically stable. He was discharged back to detention in a stable condition. Patient was given course of oral antibiotic to finish treatment with prophylactic oral
vancomycin.
Discharge Plan
-
Patient Disposition: Jail/SNF
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 Status post debridement/washout right lower extremity below the knee amputation stump with exertional tibial stump resection by Dr. Gutierrez on August 24.
Diet: As tolerated
Activity Restrictions/Additional Instructions:
Wound Care Instructions
R BKA-Wound Vac therapy- use black foam, Change every 48 - 72 hours (i. e. Rnymqsd-Rdkpwgvyju-Astklfs) and prn if unable to obtain a seal. Low Intensity, Continuous at 125 mmHg. Upon discharge or transfer to another facility, remove VAC foam and
apply NS moistened gauze dressing unless home VAC unit available.
Follow up with vascular surgeon.
Referrals:
Berta Torres NP [Specified Professional Personl] - 09/17/23 1:20 pm
Tiffanie Chou PA-C [Specified Professional Personl] - 09/11/23 1:00 pm
NONE,* [Family Provider] -
Prescriptions:
New
ciprofloxacin HCl 500 mg Tablet
500 mg PO Q24H Qty: 2 0RF
hydromorphone 4 mg Tablet
4 mg PO TIDPRN PRN (Reason: mod to severe pain) Qty: 20 0RF
Eliquis 5 mg Tablet
5 mg PO BID Qty: 60 0RF
vancomycin 50 mg/mL Recon Soln
125 mg PO BID Qty: 80 0RF
Rx Instructions:
continue through 09/03/23.
metoprolol succinate 50 mg Tablet Extended Release 24 Hr
50 mg PO BID Qty: 60 0RF
sennosides-docusate sodium [Stool Softener-Laxative] 8.6-50 mg Tablet
2 tab PO BIDPRN PRN (Reason: constipation) Qty: 10 0RF
amoxicillin-pot clavulanate 500-125 mg Tablet
1 tab PO Q24H Qty: 2 0RF
Continued
lidocaine 4 % Adhesive Patch,Medicated
1 patch TOPICAL DAILY
acetaminophen 500 mg Tablet
1,000 mg PO TID
magnesium hydroxide [Milk of Magnesia] 400 mg/5 mL Suspension
30 ml PO HSPRN PRN (Reason: if no BM in 3 days)
bisacodyl 10 mg Suppository
10 mg OH DAILY PRN (Reason: if no results for MOM)
cholecalciferol (vitamin D3) 25 mcg (1,000 unit) Tablet
25 mcg PO DAILY
gabapentin 100 mg Capsule
100 mg PO HD-MOWEFR Qty: 0 0RF
famotidine 20 mg Tablet
20 mg PO Q48H Qty: 0 0RF
pantoprazole 40 mg Tablet,Delayed Release (Dr/Ec)
40 mg PO BID Qty: 0 0RF
midodrine 2.5 mg Tablet
2.5 mg PO Q8HPRN PRN (Reason: low blood pressure)
Discontinued
clopidogrel 75 mg Tablet
75 mg PO DAILY
amlodipine 10 mg Tablet
10 mg PO DAILY
aspirin 81 mg Tablet,Chewable
81 mg PO DAILY
metoprolol tartrate 25 mg Tablet
25 mg PO BID
apixaban 2.5 mg Tablet
2.5 mg PO BID
oxycodone 5 mg Tablet
5 mg PO Q4HPRN PRN (Reason: moderate pain) Qty: 10 0RF
sucralfate 100 mg/mL Suspension
1 gm PO ACHS Qty: 0 0RF
Discharge Orders:
Discharge Patient (As Directed); Ordered 08/29/23
Ordered By: Valeriano Peres
Discharge Date and Time
Print Language: MALAWIAN
--- NOTE | 2023-08-29 15:31 | WOUNDNOTE ---
WOC RN note: Castillo Angeles re: place removed vac pump in the soiled utility room for pickling operator.
[2023-08-29 17:18] LABS: Glucose - Point of Care 115 mg/dl (70-99)
--- NOTE | 2023-08-29 18:45 | PTCARENOTE ---
Patient discharged back to [facility] via [facility]. This RN removed patient's IVs, called report to Adrienne at facility. Patient gathered own belongings in patient belonging bag, bag handed to EMS team upon discharge. Wound vac removed
and wet to dry dressing placed on R BKA by Vascular CENTER CONSULTANT prior to discharge, wound vac placed on shelf in soiled utility room per Alison corporate trust officer. Patient's own wheelchair in room to be picked up by facility tomorrow per Kimberly case manager specialist,
wheelchair placed in supply room with note indicating pickup.
== END 2023-08-29 18:45 | DRG 492 ==
LOC: 2 NORTH 16:25
PROVIDERS: Nurse Practitioner; Nurse Practitioner Acute Care; Registered Nurse; Specialist; Surgery Vascular Surgery; ADMITTING PHYSICIAN Internal Medicine; ATTENDING PHYSICIAN Internal Medicine; CONSULT PHYSICIAN Internal Medicine Cardiovascular Disease; CONSULT PHYSICIAN Specialist; CONSULT PHYSICIAN Student in an Organized Health Care Education/Training Program; EMERGENCY PHYSICIAN Student in an Organized Health Care Education/Training Program
PROC: 5A1D70Z Performance of Urinary Filtration, Intermittent, Less than 6 Hours Per Day (ICD-10-PCS; 2023-08-25)
PROC: 0QBG0ZZ Excision of Right Tibia, Open Approach (ICD-10-PCS; 2023-08-25)
PROC: 2W1QX6Z Compression of Right Lower Leg using Pressure Dressing (ICD-10-PCS; 2023-08-26)
DX: T87.43 Infection of amputation stump, right lower extremity (principal); N18.6 End stage renal disease; E87.1 Hypo-osmolality and hyponatremia; I50.30 Unspecified diastolic (congestive) heart failure; I13.2 Hypertensive heart and chronic kidney disease with heart failure and with stage 5 chronic kidney disease, or end stage renal disease; I31.39 Other pericardial effusion (noninflammatory); D63.8 Anemia in other chronic diseases classified elsewhere; E11.51 Type 2 diabetes mellitus with diabetic peripheral angiopathy without gangrene; E11.22 Type 2 diabetes mellitus with diabetic chronic kidney disease; F32.A Depression, unspecified; Z99.2 Dependence on renal dialysis; Z95.820 Peripheral vascular angioplasty status with implants and grafts; Z89.611 Acquired absence of right leg above knee; I95.9 Hypotension, unspecified; T87.81 Dehiscence of amputation stump; Y83.5 Amputation of limb(s) as the cause of abnormal reaction of the patient, or of later complication, without mention of misadventure at the time of the procedure; B95.2 Enterococcus as the cause of diseases classified elsewhere; B96.5 Pseudomonas (aeruginosa) (mallei) (pseudomallei) as the cause of diseases classified elsewhere; G89.29 Other chronic pain; I25.10 Atherosclerotic heart disease of native coronary artery without angina pectoris; K21.9 Gastro-esophageal reflux disease without esophagitis; Z96.0 Presence of urogenital implants; I48.0 Paroxysmal atrial fibrillation; Z22.1 Carrier of other intestinal infectious diseases; Z79.01 Long term (current) use of anticoagulants; Z79.02 Long term (current) use of antithrombotics/antiplatelets; Z79.82 Long term (current) use of aspirin; Z79.891 Long term (current) use of opiate analgesic; Z79.899 Other long term (current) drug therapy; Z87.39 Personal history of other diseases of the musculoskeletal system and connective tissue
CPT/HCPCS: 88304; 88311; 11044; 71045; 73700; 80048; 80051; 80053; 80202; 82962; 83036; 85014; 85018; 85025; 85027; 85610; 85730; 86850; 86900; 86901; 86920; 87070; 87075; 87077; 87147; 87186; 87205; 87641; 93005; 93306; 93926; 97163; 97167; 99285; 99406; G0257; P9016; P9047; Q5106

== ENCOUNTER 2023-10-22 09:08 | Emergency (ER) | payer MEDICARE, MEDICAID, SELFPAY ==
[2023-10-22 09:12] VITALS: BP 151/83
[2023-10-22 09:13] VITALS: BP 151/83
--- NOTE | 2023-10-22 09:25 | ED.GENMED ---
History of Present Illness
General
Chief Complaint: Abnormal Lab Value
Source: patient and records
Time Seen by Provider: 10/22/23 09:11
History of Present Illness
History of Present Illness:
68-year-old male with complex past medical history including right BKA, diabetes, hypertension, chronic kidney disease with dialysis (Friday, Friday, Friday) presenting to the emergency department via EMS from [facility] for
dialysis. Patient missed his last 4 sessions due to diarrhea and notes that to get dialysis today he was told he needed to come to the emergency department. Patient notes that he still has the diarrhea but that it is much improved from where it
was about a week ago. He denies any abdominal pain, fevers, chills, rigors, nausea, vomiting, urinary symptoms or any other concerns. He does not believe that [facility] tested his stool for any signs of infection. He notes that often times he
will feel fine and then have a sudden urge to defecate and sometimes he states this is difficult to control. Patient does not believe he is on any antibiotics presently and believes he finished them at least 1 to 2 weeks ago. No other concerns at
this time
Past History
Past History
ED Past Medical History: HTN, NIDDM, Renal failure, Other (Anemia) and Other (Metabolic encephalopathy, hyponatremia)
ED Past Surgical History: Orthopedic (Laminectomy)
Social History
Tobacco: Non-smoker
Alcohol: None
Drug: None
Personal:
Living: half-way
Review of Systems
Review of Systems
All Other Systems: ROS reviewed and negative except as documented in HPI and ROS
Phy Exam
Physical Exam
Physical Exam:
GENERAL: Alert , in no apparent distress
EYE: conjunctiva clear
NECK: Supple
ENT: o/p clr, mmm.
CARDIAC: Regular rate and rhythm
LUNGS: Clear breath sounds bilaterally, no acute respiratory distress, no wheezes/rales/rhonchi
ABDOMEN: Soft, non-tender, non distended
NEUROLOGICAL: Alert and oriented
SKIN: Warm and dry, skin intact.
MUSCULOSKELETAL: well perfused.
PSYCH: Normal and appropriate interaction.
Scores
Heart Failure Risk
Heart Failure Risk Score: Not Applicable
Heart Score for Chest Pain Patients
STEMI patient?: Not applicable
Withdrawal Assessment of Alcohol
Withdrawal Assessment Completed?: Not applicable
Course
Orders/Labs/Results
Orders:
Orders
10/22/23 09:18
Complete Blood Count/With Diff Urgent
Comprehensive Metabolic Panel Urgent
10/22/23 10:17
Albumin Human 25% 50 ml [Flexbumin 25% For Hemodialysis] 12.5 grams IV HD-Q1HPRN PRN
Epoetin Pedrito-Epbx [Retacrit] 10,000 units IV HD-ONCE ONE
Heparin 500 units IV HD-ONCE ONE
Heparin 500 units IV HD-ONCE ONE
Heparin See Dose Instructions INTRACATH HD-ONCE ONE
Mannitol 25% 12.5 grams IV HD-Q1HPRN PRN
Sodium Chloride [Sodium Chloride 4 Meq/ml For Hemodialysis] 10 ml IV HD-Q1HPRN PRN
Hemodialysis treatment As Directed
Treatment date:: 10/22/23
Treatment type: Hemodialysis
Ultrafiltration (kg): 2-3kg
Treatment time (duration): 4 hours
Use dialysis access:: Tunneled Cath
Dialyzer:: Optiflux 160
Blood flow rate minimum: 350
Blood flow rate maximum: 400
Dialysis flow rate: 600 mL/min
Dialysate temperature: 35 degrees Celsius
Sodium (Na): 140
Potassium (K): 2
Calcium (Ca): 2.5
Bicarbonate (HCO3): 35
10/22/23 11:54
STOOL [C difficile Antigen & Toxins] Urgent
LEXUS Source: Feces/Stool
Specimen Description:
Date Specimen was Collected: 10/22/23
Time Specimen was Collected: 11:50
Stool Culture Urgent
LEXUS Source: Feces/Stool
Specimen Description:
Date Specimen was Collected: 10/22/23
Time Specimen was Collected: 11:50
Abnormal Lab Results
10/22/23
09:18
RBC 3.22 L 10^6/uL
(4.70-6.10)
Hgb 9.6 L g/dL
(13.0-18.0)
Hct 30.4 L %
(39.0-52.0)
MCV 94.4 H fL
(80.0-94.0)
MCHC 31.6 L g/dL
(33.0-37.0)
RDW 18.4 H %
(11.5-14.5)
Absolute Monos (auto) 1.2 H 10^3/uL
(0.1-0.6)
Lymphocytes % 19.0 L %
(20.5-51.1)
Monocytes % 13.2 H %
(1.7-9.3)
Potassium 5.5 H mmol/L
(3.5-5.1)
Chloride 108 H mmol/L
(98-107)
Carbon Dioxide 11 L* mmol/L
(22-30)
BUN 64 H mg/dl
(9-20)
Creatinine 7.5 H* mg/dL
(0.7-1.3)
AST 12 L U/L
(17-59)
Alkaline Phosphatase 191 H U/L
(38-126)
Total Protein 6.2 L g/dl
(6.3-8.2)
Albumin 3.3 L g/dl
(3.5-5.0)
10/22/23 09:18
10/22/23 09:18
Vital Signs
Initial and Last Documented VS:
Initial Vital Signs
Temp Pulse Resp Pulse Ox
98.3 F 61 18 100
10/22/23 09:11 10/22/23 09:11 10/22/23 09:11 10/22/23 09:11
Last Documented Vital Signs
Temp Pulse Resp BP Pulse Ox
98.3 F 62 18 137/72 97
10/22/23 09:11 10/22/23 12:00 10/22/23 12:00 10/22/23 11:00 10/22/23 11:15
MDM/Problems Addressed
Differential Diagnosis Includes:
C. difficile colitis versus antibiotic associated colitis, gastroenteritis, electrolyte derangement
MDM/Problems Addressed:
68-year-old male presenting to the emergency department from his half-way for dialysis. Patient reportedly missed 4 straight sessions due to GI upset. Recent antibiotics from revision of his right BKA which was infected. Based off his
discharge summary it appears patient was completed on these antibiotics from mid August. Given the amount of time that is passed since patient completed antibiotics and less suspicious for antibiotic associated complication however given he has not
had stool checked will order C. difficile and stool culture. Will notify nephrology to help expedite dialysis. Anticipated disposition back to half-way
Chronic conditions affecting care: Kidney disease
Acute Exacerbation and/or Progression of Chronic Illness: Kidney disease
*Pulse Oximetry
Patient hypoxic: no
*Critical Care Note
Total Time (30-74mins, 75-104mins- exclusive of procedures): Not Applicable
Data Reviewed
Review of Other/Old Records Reveals: Labs, Records and Discharge Summary
Source: patient and records
Patient Management
Discussion with other providers: custodial staff
Escalation/DeEscalation of care consider admission/obs:
Patient completed dialysis without complications. C.Diff stool studies negative. Stable or d/c back to facility. Will arrange for transportation.
ED Attending Note
-
Portions of this chart may have been created with voice recognition software.� Occasional wrong word or��sound alike� substitutions may have occurred due to the inherent limitations of voice recognition software.
Discharge Plan
Departure
Patient Disposition: Home (Routine Discharge)
Date of Disposition: 10/22/23
Time of Disposition: 16:08
Patient with high blood pressure during this ER visit?: No
Discharge Problem:
Encounter for kidney dialysis, Diarrhea
Prescriptions:
No Action
lidocaine 4 % Adhesive Patch,Medicated
1 patch TOPICAL DAILY
acetaminophen 500 mg Tablet
1,000 mg PO TID
cholecalciferol (vitamin D3) 25 mcg (1,000 unit) Tablet
25 mcg PO DAILY
gabapentin 100 mg Capsule
100 mg PO HD-MOWEFR Qty: 0 0RF
famotidine 20 mg Tablet
20 mg PO Q48H Qty: 0 0RF
pantoprazole 40 mg Tablet,Delayed Release (Dr/Ec)
40 mg PO BID Qty: 0 0RF
midodrine 2.5 mg Tablet
2.5 mg PO Q8HPRN PRN (Reason: low blood pressure)
hydromorphone 4 mg Tablet
4 mg PO TIDPRN PRN (Reason: mod to severe pain) Qty: 20 0RF
Eliquis 5 mg Tablet
5 mg PO BID Qty: 60 0RF
metoprolol succinate 50 mg Tablet Extended Release 24 Hr
50 mg PO BID Qty: 60 0RF
sennosides-docusate sodium [Stool Softener-Laxative] 8.6-50 mg Tablet
2 tab PO BIDPRN PRN (Reason: constipation) Qty: 10 0RF
loperamide 2 mg Capsule
2 mg PO TID
Lokelma 5 gram Powder In Packet
5 g PO MOWE
Lokelma 10 gram Powder In Packet
10 g PO MOWE
Referrals:
Vinnie Barbosa MD [Family Provider] -
Interventions
Interventions:
*Risk Screen - Suicide Last Done: 10/22/23 11:06
*General Assessment Last Done: 10/22/23 11:59
*Neglect/Abuse Screening Last Done: 10/22/23 11:06
ED- Fall Risk Assessment Last Done: 10/22/23 11:07
*ED COVID-19 Vaccine History Last Done: 10/22/23 12:00
Discharge Date and Time
Print Language: ALBANIAN
[2023-10-22 09:36] LABS: % Basophils 0.9 % (0-2); % Eosinophils 3.2 % (0-6); % Immature Granulocytes 0.4 % (0-0.5); % Monocytes 13.2 % (1.7-9.3); % Neutrophils 63.3 % (42.2-75.2); Absolute Basophils 0.1 10^3/uL (0-0.2); Absolute Eosinophils 0.3 10^3/uL (0-0.7); Absolute Lymphocytes 1.7 10^3/uL (1.2-3.4); Absolute Monocytes 1.2 10^3/uL (0.1-0.6); Absolute Neutrophils 5.7 10^3/uL (1.4-6.5); Hematocrit 30.4 % (39.0-52.0); Hemoglobin 9.6 g/dL (13.0-18.0); Mean Corp Hgb Conc. 31.6 g/dL (33.0-37.0); Mean Corpuscular Hgb 29.8 pg (27.0-31.0); Mean Corpuscular Volume 94.4 fL (80.0-94.0); Mean Platelet Volume 9.5 fL (7.4-10.4); Nucleated Red Blood Cells % 0 % (-); Platelet Count 400 10^3/uL (130-400); Red Blood Cell Count 3.22 10^6/uL (4.70-6.10); Red Cell Dist. Width 18.4 % (11.5-14.5)
[2023-10-22 09:56] LABS: ALT (SGPT) < 10 U/L (0-50); AST (SGOT) 12 U/L (17-59); Albumin 3.3 g/dl (3.5-5.0); Alkaline Phosphatase 191 U/L (38-126); Blood Urea Nitrogen 64 mg/dl (9-20); Calcium 9.2 mg/dl (8.4-10.2); Chloride 108 mmol/L (98-107); Estimated Creatinine Clearance 11 ml/min; Glucose 97 mg/dl (70-99); Potassium 5.5 mmol/L (3.5-5.1); Sodium 141 mmol/L (135-145); Total Bilirubin 0.5 mg/dl (0.2-1.3); Total Protein 6.2 g/dl (6.3-8.2)
[2023-10-22 10:00] VITALS: BP 135/75
--- NOTE | 2023-10-22 10:19 | W.CON.NEPH ---
Consultation
-
Date/Time Consultation Requested: 10/22/23 10a
Date/Time Consultation Performed: 10/22/23 10a
Requesting Provider: Dr Rollins
Performing Provider: Dr Villegas
Reason for Consultation: ESRD
Medical History
-
Chief Complaint: End-stage renal disease
History of Present Illness:
Mr. Hairston is a 68YOM with ESRD on HD MWF, chronic anemia, PAD (chronic R heel wound who underwent right BKA on 07/23/2023), diabetes, laminectomy for epidural abscess, chronic pain (on opioids). He has anticoagulation for atrial fibrillation which
is rate controlled. He is on Lokelma 3 times weekly to control potassium levels despite being on dialysis.
In the last 2 weeks he reports having diarrhea. This occurs at least 5 times per day almost every hour by his report he does not usually occur at nighttime when he is sleeping. His last dialysis treatment was Friday a week and a half ago. He says
that last week because the diarrhea they did not send him and then subsequently he said that he could not go down because of the diarrhea. He says at the dialysis unit wanted him to come down last Friday but he did not because of the diarrhea
again. Today he was sent to the emergency room because of multiple missed treatments (4).
Past Medical History
[facility] (now HD)
ESRD
chronic anemia
PAD (chronic R heel wound) status post right BKA on 07/23/2023
diabetes
laminectomy for epidural abscess
chronic pain (on opiods)
GERD
HTN
History of C. difficile colitis
Past Medical History: Other
Past Surgical History: Other (laminectomy)
Social History
Tobacco: Non-Smoker
Alcohol: None
Drug: None
Living: [facility]
Family History
Family History: Not Pertinent
Allergies / Home Medications
Allergy/AdvReac Type Severity Reaction Status Date / Time
No Known Allergies Allergy Verified 08/22/23 12:14
�Medication �Instructions �Recorded �Confirmed �Type
acetaminophen 500 mg tablet 1,000 mg PO TID Pain 06/29/23 10/22/23 History
cholecalciferol (vitamin D3) 25 25 mcg PO DAILY Supplement 06/29/23 10/22/23 History
mcg (1,000 unit) tablet
lidocaine 4 % topical patch 1 patch topical DAILY lower back 06/29/23 10/22/23 History
famotidine 20 mg tablet 20 mg PO Q48H #0 tabs 07/26/23 10/22/23 Rx
gabapentin 100 mg capsule 100 mg PO HD-MOWEFR #0 caps 07/26/23 10/22/23 Rx
pantoprazole 40 mg tablet,delayed 40 mg PO BID #0 tabs 07/26/23 10/22/23 Rx
release
midodrine 2.5 mg tablet 2.5 mg PO Q8HPRN PRN low blood 08/22/23 10/22/23 History
pressure
apixaban 5 mg tablet (Eliquis) 5 mg PO BID #60 tabs 08/29/23 10/22/23 Rx
hydromorphone 4 mg tablet 4 mg PO TIDPRN PRN mod to severe 08/29/23 10/22/23 Rx
pain #20 tabs
metoprolol succinate 50 mg 50 mg PO BID #60 tabs 08/29/23 10/22/23 Rx
tablet,extended release 24 hr
sennosides 8.6 mg-docusate sodium 2 tab PO BIDPRN PRN constipation 08/29/23 10/22/23 Rx
50 mg tablet (Stool #10 tabs
Softener-Laxative)
loperamide 2 mg capsule 2 mg PO TID 10/22/23 10/22/23 History
sodium zirconium cyclosilicate 10 10 g PO MOWE 10/22/23 10/22/23 History
gram oral powder packet (Lokelma)
sodium zirconium cyclosilicate 5 5 g PO MOWE 10/22/23 10/22/23 History
gram oral powder packet (Lokelma)
Review of Systems
-
No chest pain or shortness of breath. Only complaint is diarrhea.
All other systems: Negative unless noted
Physical Exam
Vital Signs
Vital Signs
Temp Pulse Resp BP Pulse Ox
98.3 F 61 18 151/83 100
10/22/23 09:11 10/22/23 09:11 10/22/23 09:11 10/22/23 09:13 10/22/23 09:11
Lab Results
WBC 9.0 10^3/uL (4.8-10.8) 10/22/23 09:18
RBC 3.22 10^6/uL (4.70-6.10) L 10/22/23 09:18
Hgb 9.6 g/dL (13.0-18.0) L 10/22/23 09:18
Hct 30.4 % (39.0-52.0) L 10/22/23 09:18
Plt Count 400 10^3/uL (130-400) 10/22/23 09:18
Sodium 141 mmol/L (135-145) 10/22/23 09:18
Potassium 5.5 mmol/L (3.5-5.1) H 10/22/23 09:18
Chloride 108 mmol/L (98-107) H 10/22/23 09:18
BUN 64 mg/dl (9-20) H 10/22/23 09:18
Creatinine 7.5 mg/dL (0.7-1.3) H* 10/22/23 09:18
eGFR 7.40 10/22/23 09:18
Glucose 97 mg/dl (70-99) 10/22/23 09:18
Calcium 9.2 mg/dl (8.4-10.2) 10/22/23 09:18
Albumin 3.3 g/dl (3.5-5.0) L 10/22/23 09:18
Physical Exam
Patient is awake alert oriented and in no distress. Mood and affect were pleasant, insight and judgment were good. Pupils are equal round and reactive to light, extraocular movements are intact, sclera were anicteric. Hearing was normal, ears and
nose are intact. Oropharynx was clear. Neck was supple with trachea midline and no thyromegaly. Heart was regular rate and rhythm without rubs. Lower extremities without edema. Lungs were clear to auscultation bilaterally and with normal
excursion. Abdomen was soft, nontender, with normal active bowel sounds, and no hepatosplenomegaly. Skin was without rash and with normal turgor.
Data Reviewed
-
Medical Tests (Nuc Med, Echo etc): Image Personally Visualized and interpreted (Telemetry strips reviewed. No peaked T waves, bradycardia pulse 56.) and Report Reviewed by me (Echocardiogram on August 26, 2023 shows ejection fraction 50% mild TR,
moderate pericardial effusion)
Labs: Labs Reviewed by me
Old Records: Reviewed
Assessment/Plan
-
Impression:
right BKA stump
Tunneled right IJ catheter
End-stage renal disease Friday at [facility]
History of hypertension now relative hypotension
Atrial fibrillation
Anemia
Peripheral vascular disease
Diabetes
History of epidural abscess and psoas abscess
Diarrhea
Plan:
HD today
[facility] on dialysis
[facility]
Diarrhea most have been fairly significant considering the lack of severe electrolyte abnormalities despite missing 4 treatments.
[2023-10-22 10:35] LABS: Carbon Dioxide 11 mmol/L (22-30)
[2023-10-22 11:00] VITALS: BP 137/72
--- NOTE | 2023-10-22 13:17 | W.PN.NEPH.HD ---
Assessment
-
Seen on HD. no new complaints. VSS, access ok
Progress Note - Hemodialysis
-
Date of Service: October 22, 2023
Duration: 4 hours
Potassium Bath: 2
Calcium Bath: 2.5
Opti-Dialyzer: 160
Ultrafiltration: Other (3kg)
Blood Flow: 400
Dialysate Flow: 600
Heparin: 500x2
EPO: 93369 units
[2023-10-22] MEDS: HEPARIN 500 UNITS IV ×2 (14:21)
[2023-10-22] MEDS: RETACRIT 10000 UNITS IV (14:22)
[2023-10-22] MEDS: HEPARIN 2200 UNITS INTRACATH (16:41)
[2023-10-22 17:17] VITALS: BP 167/86
== END 2023-10-22 18:21 | disposition home or self-care (01) ==
LOC: EMR 09:08
PROVIDERS: EMERGENCY PHYSICIAN Emergency Medicine; FAMILY PHYSICIAN Internal Medicine
DX: R19.7 Diarrhea, unspecified (principal); E11.22 Type 2 diabetes mellitus with diabetic chronic kidney disease; I12.0 Hypertensive chronic kidney disease with stage 5 chronic kidney disease or end stage renal disease; N18.6 End stage renal disease; E11.51 Type 2 diabetes mellitus with diabetic peripheral angiopathy without gangrene; I48.91 Unspecified atrial fibrillation; K21.9 Gastro-esophageal reflux disease without esophagitis; Z86.19 Personal history of other infectious and parasitic diseases; Z89.511 Acquired absence of right leg below knee; Z99.2 Dependence on renal dialysis
CPT/HCPCS: 99283; 96374; 96375; 96376; 80053; 85025; 87045; 87046; 87324; 87427; 87449; P9047; Q5106

== ENCOUNTER 2023-11-21 19:52 | Inpatient (IN) | payer MEDICARE, OTHER, SELFPAY ==
[2023-11-21] VITALS (7 sets, daily range): BP systolic 126–167; BP diastolic 74–96; BMI 27.5
[2023-11-21 15:25] LABS: % Basophils 0.8 % (0-2); % Eosinophils 2.7 % (0-6); % Immature Granulocytes 0.6 % (0-0.5); % Lymphocytes 12.2 % (20.5-51.1); % Monocytes 11.6 % (1.7-9.3); % Neutrophils 72.1 % (42.2-75.2); Absolute Basophils 0.1 10^3/uL (0-0.2); Absolute Eosinophils 0.2 10^3/uL (0-0.7); Absolute Immature Granulocytes 0.1 10^3/uL (0-0.05); Absolute Lymphocytes 1.1 10^3/uL (1.2-3.4); Absolute Neutrophils 6.4 10^3/uL (1.4-6.5); Hematocrit 28.9 % (39.0-52.0); Hemoglobin 9.2 g/dL (13.0-18.0); Mean Corp Hgb Conc. 31.8 g/dL (33.0-37.0); Mean Corpuscular Hgb 28.9 pg (27.0-31.0); Mean Corpuscular Volume 90.9 fL (80.0-94.0); Mean Platelet Volume 8.9 fL (7.4-10.4); Nucleated Red Blood Cells % 0 % (-); Platelet Count 479 10^3/uL (130-400); Red Blood Cell Count 3.18 10^6/uL (4.70-6.10); Red Cell Dist. Width 17.5 % (11.5-14.5); White Blood Cell Count 8.8 10^3/uL (4.8-10.8)
[2023-11-21 15:41] LABS: ALT (SGPT) < 10 U/L (0-50); AST (SGOT) 15 U/L (17-59); Albumin 3.4 g/dl (3.5-5.0); Alkaline Phosphatase 146 U/L (38-126); Blood Urea Nitrogen 94 mg/dl (9-20); Calcium 9.6 mg/dl (8.4-10.2); Carbon Dioxide 13 mmol/L (22-30); Chloride 102 mmol/L (98-107); Glucose 122 mg/dl (70-99); Potassium 6.5 mmol/L (3.5-5.1); Sodium 135 mmol/L (135-145); Total Protein 6.4 g/dl (6.3-8.2); eGFR 7.28
--- NOTE | 2023-11-21 16:04 | ED.GENMED ---
History of Present Illness
<Nathaniel Johnson MD, Resident - Last Filed: 11/21/23 19:22>
General
Chief Complaint: Abnormal Lab Value
Source: patient and records
Time Seen by Provider: 11/21/23 15:11
Travel History
Have you traveled to any high risk areas for coronavirus over the past 14 days?: No
Have you had any contact with someone who has COVID-19?: No
Do you have any symptoms of coronavirus? Fever > 100 degrees, chills, cough, shortness of breath, sore throat, loss of taste or smell, muscle aches, or headache?: No
History of Present Illness
History of Present Illness:
Dustin Hairston, 68-year-old male with end-stage renal disease on M-W-F dialysis secondary to diabetic nephropathy, has missed his last 2 or 3 sessions. He has chronic right shoulder pain, which gets worse when he is on dialysis. Also states that he
has had some issues with the staff when he goes for dialysis. He has refused dialysis this week due to those two reasons. The stump wound and infection is stable and gets regular wound care. Denies fever, chills, night sweats, dizziness,
lightheadedness, chest pain/tightness or headaches. Denies any other changes to his health. His blood work in the emergency was notable for potassium of 6.5.
Past History
<Nathaniel Johnson MD, Resident - Last Filed: 11/21/23 19:22>
Past History
ED Past Medical History: HTN, NIDDM, Renal failure, Other (Anemia) and Other (Metabolic encephalopathy, hyponatremia)
ED Past Surgical History: Orthopedic (Laminectomy)
Social History
Tobacco: Non-smoker
Alcohol: None
Drug: None
Personal:
Living: fdc
Review of Systems
<Nathaniel Johnson MD, Resident - Last Filed: 11/21/23 19:22>
Review of Systems
All Other Systems: ROS reviewed and negative except as documented in HPI and ROS
Phy Exam
<Nathaniel Johnson MD, Resident - Last Filed: 11/21/23 19:22>
General Physical Exam
General Presentation: well appearing and no apparent distress
General Skin: warm and dry
General Habitus: normal
General Mental: alert
General Hydration: appears well hydrated
ENT Exam
ENT Exam: EOMI, pharynx normal, neck supple and normocephalic
Eye Exam
Eye Exam: PERRL, cornea clear and conjunctiva normal
Cardiovascular Exam
Cardiovascular Exam: regular rate/rhythm, no edema, no murmur and normal peripheral pulses
Pulmonary Exam
Pulmonary Exam: lungs clear, no respiratory distress, no rales, no crackles, no rhonchi, no stridor, no wheezing and no cough
Gastrointestinal Exam
Gastrointestinal Exam: normal bowel sounds, non tender, soft, no organomegaly, no pulsatile mass and non distended
Neurological Exam
Neurological Exam: alert, oriented x3, no motor deficits and speech normal
Musculoskeletal Exam
Musculoskeletal Exam: edema and other (restricted range of motion both shoulders due to pain)
Skin Exam
Skin Exam: normal color, warm/dry, no rash and no petechia
Psychiatric Exam
Psychiatric Exam: normal mood/affect
Course
<Nathaniel Johnson MD, Resident - Last Filed: 11/21/23 19:22>
Orders/Labs/Results
Orders:
Orders
11/21/23 15:13
CBC/With Diff [Complete Blood Count/With Diff] Urgent
CMP [Comprehensive Metabolic Panel] Urgent
11/21/23 15:17
EKG [Electrocardiogram (*1)] Urgent
Reason for Study: Other
Other Reason for Exam: missed dialysis x1 week
EKG- Treatment ONCE
11/21/23 15:47
Electrocardiogram (*1) Urgent
Reason for Study: QTc Monitoring
EKG- Treatment ONCE
11/21/23 16:00
CR Shoulder - Right Min 2 View Urgent
Comment:
Reason For Exam: right shoulder pain
11/21/23 18:12
NEPHROLOGY CONSULT Urgent
Consulting Provider: Gris Arnold
Was physician already notified: Yes
11/21/23 18:20
Sodium Zirconium Cyclosilicate [Lokelma] 10 gram PO TID@0600,1400,1800
Abnormal Lab Results
11/21/23
15:13
RBC 3.18 L 10^6/uL
(4.70-6.10)
Hgb 9.2 L g/dL
(13.0-18.0)
Hct 28.9 L %
(39.0-52.0)
MCHC 31.8 L g/dL
(33.0-37.0)
RDW 17.5 H %
(11.5-14.5)
Plt Count 479 H 10^3/uL
(130-400)
Abs Immat Gran (auto) 0.1 H 10^3/uL
(0-0.05)
Absolute Lymphs (auto) 1.1 L 10^3/uL
(1.2-3.4)
Absolute Monos (auto) 1.0 H 10^3/uL
(0.1-0.6)
Immature Gran % 0.6 H %
(0-0.5)
Lymphocytes % 12.2 L %
(20.5-51.1)
Monocytes % 11.6 H %
(1.7-9.3)
Potassium 6.5 H* mmol/L
(3.5-5.1)
Carbon Dioxide 13 L* mmol/L
(22-30)
BUN 94 H mg/dl
(9-20)
Creatinine 7.6 H* mg/dL
(0.7-1.3)
Glucose 122 H mg/dl
(70-99)
AST 15 L U/L
(17-59)
Alkaline Phosphatase 146 H U/L
(38-126)
Albumin 3.4 L g/dl
(3.5-5.0)
11/21/23 15:13
11/21/23 15:13
Vital Signs
Initial and Last Documented VS:
Initial Vital Signs
Temp Pulse Resp BP Pulse Ox
98.0 F 69 16 146/87 100
11/21/23 14:58 11/21/23 14:58 11/21/23 14:58 11/21/23 14:58 11/21/23 14:58
Last Documented Vital Signs
Temp Pulse Resp BP Pulse Ox
98.0 F 66 16 126/74 99
11/21/23 14:58 11/21/23 18:00 11/21/23 18:00 11/21/23 17:00 11/21/23 17:15
[place];Elvis Calero, - Last Filed: 11/21/23 18:02>
Orders/Labs/Results
Orders:
Orders
11/21/23 15:13
CBC/With Diff [Complete Blood Count/With Diff] Urgent
CMP [Comprehensive Metabolic Panel] Urgent
11/21/23 15:17
EKG [Electrocardiogram (*1)] Urgent
Reason for Study: Other
Other Reason for Exam: missed dialysis x1 week
EKG- Treatment ONCE
11/21/23 15:47
Electrocardiogram (*1) Urgent
Reason for Study: QTc Monitoring
EKG- Treatment ONCE
11/21/23 16:00
CR Shoulder - Right Min 2 View Urgent
Comment:
Reason For Exam: right shoulder pain
11/21/23 18:12
NEPHROLOGY CONSULT Urgent
Consulting Provider: Gris Arnold
Was physician already notified: Yes
11/21/23 18:20
Sodium Zirconium Cyclosilicate [Lokelma] 10 gram PO TID@0600,1400,1800
Abnormal Lab Results
11/21/23
15:13
RBC 3.18 L 10^6/uL
(4.70-6.10)
Hgb 9.2 L g/dL
(13.0-18.0)
Hct 28.9 L %
(39.0-52.0)
MCHC 31.8 L g/dL
(33.0-37.0)
RDW 17.5 H %
(11.5-14.5)
Plt Count 479 H 10^3/uL
(130-400)
Abs Immat Gran (auto) 0.1 H 10^3/uL
(0-0.05)
Absolute Lymphs (auto) 1.1 L 10^3/uL
(1.2-3.4)
Absolute Monos (auto) 1.0 H 10^3/uL
(0.1-0.6)
Immature Gran % 0.6 H %
(0-0.5)
Lymphocytes % 12.2 L %
(20.5-51.1)
Monocytes % 11.6 H %
(1.7-9.3)
Potassium 6.5 H* mmol/L
(3.5-5.1)
Carbon Dioxide 13 L* mmol/L
(22-30)
BUN 94 H mg/dl
(9-20)
Creatinine 7.6 H* mg/dL
(0.7-1.3)
Glucose 122 H mg/dl
(70-99)
AST 15 L U/L
(17-59)
Alkaline Phosphatase 146 H U/L
(38-126)
Albumin 3.4 L g/dl
(3.5-5.0)
11/21/23 15:13
11/21/23 15:13
Vital Signs
Initial and Last Documented VS:
Initial Vital Signs
Temp Pulse Resp BP Pulse Ox
98.0 F 69 16 146/87 100
11/21/23 14:58 11/21/23 14:58 11/21/23 14:58 11/21/23 14:58 11/21/23 14:58
Last Documented Vital Signs
Temp Pulse Resp BP Pulse Ox
98.0 F 66 16 126/74 99
11/21/23 14:58 11/21/23 18:00 11/21/23 18:00 11/21/23 17:00 11/21/23 17:15
<Nathaniel Johnson MD, Resident - Last Filed: 11/21/23 19:22>
MDM/Problems Addressed
Chronic conditions affecting care:
ESRD on HD -W-
<Nathaniel Johnson MD, Resident - Last Filed: 11/21/23 19:22>
*Critical Care Note
Total Time (30-74mins, 75-104mins- exclusive of procedures): Not Applicable
ED Attending Note
<Nathaniel Johnson MD, Resident - Last Filed: 11/21/23 19:22>
-
Portions of this chart may have been created with voice recognition software.� Occasional wrong word or��sound alike� substitutions may have occurred due to the inherent limitations of voice recognition software.
<Elvis Calero DO - Last Filed: 11/21/23 18:02>
ED Attending Note
Patient seen and examined by attending physician: Yes
I performed a history and physical exam of patient and discussed management with resident, I reviewed resident's note and agree with documented findings and plan of care.: Yes
ED Attending Note:
I agree with Dr. Johnson's note.
Pt refusing dialysis. Patient states the reasons for him to refuse dialysis are inadequately controlled right shoulder pain and conflict with the dialysis nurse. He has no particular complaints other than the pain.
General: Awake, Alert, Oriented X3. No acute distress.
Vitals: unremarkable
Head: Atraumatic
Eyes: Pupils equal, EOMI
Throat: Airway intact, no exudates
Neck: Trachea midline
Chest: Right sided dialysis catheter noted
Lungs: Clear and equal b/l
Heart: Regular rate, no murmurs
Neuro: Nonfocal
Skin: Warm, dry, no rash
Extremities: pulses equal b/l, no edema
Labs reviewed. Patient is hyperkalemic with a potassium of 6.5. Her EKG does not show any acute hyperkalemia changes however. Bicarb is low at 13 with an anion gap of 20. Patient was supposed to dialysis today. Given his hyperkalemia I feel it
is best the patient is admitted for dialysis tomorrow. Resident will reach out to the hospitalist and nephrology to arrange admission. Given lack of echocardiographic abnormalities I do not believe the patient would benefit from calcium or insulin
at this time however we can give a dose of Lokelma.
Discharge Plan
Departure
Patient Disposition: Admit
Date of Disposition: 11/21/23
Time of Disposition: 18:27
Presentation/result/management discussed w/ accepting MD/DO: Hospitalist
Discharge Problem:
Acute hyperkalemia, End stage renal disease
Prescriptions:
No Action
lidocaine 4 % Adhesive Patch,Medicated
1 patch TOPICAL DAILY
acetaminophen 500 mg Tablet
1,000 mg PO TID
cholecalciferol (vitamin D3) 25 mcg (1,000 unit) Tablet
25 mcg PO DAILY
famotidine 20 mg Tablet
20 mg PO Q48H Qty: 0 0RF
pantoprazole 40 mg Tablet,Delayed Release (Dr/Ec)
40 mg PO BID Qty: 0 0RF
midodrine 2.5 mg Tablet
2.5 mg PO Q8HPRN PRN (Reason: sbp<100)
Eliquis 5 mg Tablet
5 mg PO BID Qty: 60 0RF
metoprolol succinate 50 mg Tablet Extended Release 24 Hr
50 mg PO BID Qty: 60 0RF
Lokelma 5 gram Powder In Packet
5 g PO MOWE
Lokelma 10 gram Powder In Packet
10 g PO MOWE
aspirin 81 mg Tablet,Chewable
81 mg PO DAILY
sennosides-docusate sodium [Stool Softener-Laxative] 8.6-50 mg tablet
2 tab PO [id number] PRN (Reason: constipation)
gabapentin 100 mg capsule
100 mg PO MOWEFR
hydromorphone 4 mg tablet
4 mg PO Q8HPRN PRN (Reason: severe pain)
Referrals:
Vinnie Barbosa MD [Family Provider] -
Interventions
Interventions:
*Risk Screen - Suicide Last Done: 11/21/23 14:58
*General Assessment Last Done: 11/21/23 14:58
*Neglect/Abuse Screening Last Done: 11/21/23 14:58
Discharge Date and Time
Print Language: MALAY
[2023-11-21] MEDS: LOKELMA 10 GRAM PO (18:33)
--- NOTE | 2023-11-21 18:38 | HPS.HSE ---
Family Physician
-
Family Physician: Vinnie Barbosa
Chief Complaint
-
Right shoulder pain, missed dialysis
History of Present Illness
68-year-old male from [facility] complaining of acute on chronic right shoulder pain secondary to prior rotator cuff repair 30 years ago with chronic pain. He states he refused dialysis for the last 5 sessions because the nurse'
pissed him off'. He believes his last session of dialysis was 11/10/2023. He denies headache, sore throat, blurred vision, fever, chills, chest pain, palpitations, shortness breath, cough, abdominal pain, nausea, vomiting, diarrhea. He has a open
but dried stump wound to the right leg with no surrounding erythema or drainage. He currently does not have his foam dressing in place. He is unsure when it was cleaned last. In the ER he was noted to have potassium of 6.5 and creat of 7.6.
Patient advised on the risks of missing dialysis.
He has past medical history end-stage renal disease dialysis Friday with dialysis catheter right upper chest wall, DM2, HTN, GERD, PAD, hypotension on chronic midodrine , PAD status post right lower extremity stenting, lumbar
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 difficile colitis, GI bleed, diverticulosis discitis, paroxysmal A-fib
new 08/24/2023
Medical History
Past Medical History
Past Medical History: Reports Other
Additional Past Medical History:
Paroxysmal A-fib new onset 08/24/2023
Discitis
Diverticulosis
Hypertension
GERD
Depression
End-stage renal disease
Osteomyelitis
Peripheral vascular disease
Type 2 diabetes
C. difficile colitis
GI bleed
Past Surgical History: Reports Other
Additional Past Surgical History:
Right BKA
Social History
Tobacco: Smoker (Currently smoking 3 cigarettes a day for the last 4 months prior 1 pack a day 54 years)
Alcohol: Occasional (Every other week prior to July 2023)
Drug: None
Personal: Single
Living: [facility]-Way ([facility])
Employment: Disabled
Family History
Family History: Other (Mother and father reports history of CHF/AR mother age 64 father age 66 patient with 2 sisters healthy, 3 brothers with history of mental illness)
Allergies / Home Medications
Allergies reflects when Allergies were last updated in [employer].
Home Medications with original date entered in [employer]
Allergy/Medication List:
Allergies
Allergy/AdvReac Type Severity Reaction Status Date / Time
No Known Allergies Allergy Verified 11/21/23 15:10
Home Medications
acetaminophen 500 mg tablet 1,000 mg PO TID Pain 06/29/23
cholecalciferol (vitamin D3) 25 mcg (1,000 unit) tablet 25 mcg PO DAILY Supplement 06/29/23
lidocaine 4 % topical patch 1 patch topical DAILY right shoulder 06/29/23
famotidine 20 mg tablet 20 mg PO Q48H #0 tabs 07/26/23
pantoprazole 40 mg tablet,delayed release 40 mg PO BID #0 tabs 07/26/23
midodrine 2.5 mg tablet 2.5 mg PO Q8HPRN PRN sbp<100 08/22/23
apixaban 5 mg tablet (Eliquis) 5 mg PO BID #60 tabs 08/29/23
metoprolol succinate 50 mg tablet,extended release 24 hr 50 mg PO BID #60 tabs 08/29/23
sodium zirconium cyclosilicate 10 gram oral powder packet (Lokelma) 10 g PO MOWE 10/22/23
sodium zirconium cyclosilicate 5 gram oral powder packet (Lokelma) 5 g PO MOWE 10/22/23
aspirin 81 mg chewable tablet 81 mg PO DAILY 11/21/23
gabapentin 100 mg capsule 100 mg PO MOWEFR 11/21/23
hydromorphone 4 mg tablet 4 mg PO Q8HPRN PRN severe pain 11/21/23
sennosides 8.6 mg-docusate sodium 50 mg tablet (Stool Softener-Laxative) 2 tab PO [id number] PRN constipation 11/21/23
Review of Systems
-
History Source: Patient
A 12 point ROS was completed and negative except as noted: Yes
Constitutional: Denies Fever, Fatigue or Chills
EENT: Denies Sore Throat or Runny Nose
Respiratory: Denies Cough or Trouble Breathing
Cardiac: Denies Chest Pain, Diaphoresis, Palpitations or Syncope
Abdomen/GI: Denies Abdominal Pain, Nausea, Vomiting, Diarrhea, Constipated, Bloody Stools or Black Stools
: Denies Dysuria, Frequency, Flank Pain, Incontinence, Difficulty Voiding or Urgency
Musculoskeletal: Reports Joint Pain (Chronic right shoulder pain) and Other (He has a open but dried stump wound to the right leg with no surrounding erythema or drainage.); Denies Joint Swelling or Edema
Skin: Denies Itching or Rash
Neurological: Denies Dizzy, Headache or Weakness
Endocrine: Reports No Symptoms
Hematologic/Lymphatic: Reports No Symptoms
Psych: Reports Calm
Physical Exam
Vital Signs
Vital Signs
Temp Pulse Resp BP Pulse Ox
98.0 F 66 16 126/74 99
11/21/23 14:58 11/21/23 18:00 11/21/23 18:00 11/21/23 17:00 11/21/23 17:15
Physical Exam
General: Comfortable and Conversant; No Fever or Chills
HEENT: NormoCephalic, Anicteric, PERRLA, [place] Conjunctivae and No Ptosis
Respiratory: Clear; No Wheezes, Rales or Rhonchi
Cardiac: S1/S2 and Regular Rhythm; No Murmur, Rub, Gallop or Peripheral Edema
Breast: Deferred by me
GI: Soft, Non Tender, Non Distended and Normal Bowel Sounds
Rectal: Deferred by Provider
Genito-urinary: Deferred by me
Musculoskeletal: No Clubbing, No Cyanosis and Other (Right BKA with an turn to which reason earlier 30 sounds good he is not walking with he gets again on and off is like 50,000 but is later open but dried stump wound to the right leg with no
surrounding erythema or drainage.); No Edema, Left Upper Extremity, Edema, Right Upper Extremity, Edema, Left Lower Extremity or Edema, Right Lower Extremity
Skin: Warm, Dry, IV/Catheter Site (Dialysis catheter right upper chest wall) and Other (Right BKA with an open but dried stump wound to the right leg with no surrounding erythema or drainage.); No Rash
Neuro: AO x 3, No Motor Deficits, Cranial Nerves Intact, No Sensory Deficits and Other (Right BKA transfers with slide board to wheelchair); No Slurred Speech, Facial Droop or Tremors
Psych: Calm
Laboratory Results
-
11/21/23 15:13
11/21/23 15:13
Laboratory Results
Total Bilirubin 1.0 mg/dl (0.2-1.3) 11/21/23 15:13
AST 15 U/L (17-59) L 11/21/23 15:13
ALT < 10 U/L (0-50) 11/21/23 15:13
Alkaline Phosphatase 146 U/L (38-126) H 11/21/23 15:13
Data Reviewed
-
Lab Data: Labs Reviewed by me
Impression/Plan
-
Impression/plan:
Admit to telemetry
#ESRD on dialysis Friday -Friday -Friday refused last 2 sessions
Patient reports still voids 5-6 times a day very small amounts
-Creat 7.6
Consult Nephrology-Dr. Arnold aware
Lokelma 10 g p.o. every 8 hours x 6 doses
-Plan for dialysis tomorrow 11/22/2023
-follow BMP
#Acute hyperkalemia secondary to missed dialysis x 2 sessions
K6.5, Lokelma 10 g now followed by 5 additional doses
-Follow BMP
#PAD
#Ischemic right heel wound status post amputation 07/22/2023
#Stump infection with open wound at prior suture border 08/22/2023
#Active open dried wound bottom of right BKA site no surrounding erythema or drainage
Treated with IV Zosyn and prophylactic oral Vanco to prevent C. difficile infection on prior admit
-Wound regimen per intermediate record wash with normal saline, pat dry, apply silver alginate and foam dressing
-Consult wound care
#A-fib this was new onset 08/27/2023/paroxysmal
EKG current NSR continue Eliquis 5 mg twice daily, metoprolol succinate 50 mg twice daily
2D echo 08/26/2023: EF 50-55%, mild TR, small-moderate pericardial effusion, left pleural effusion, PASP 40 to 45 mmHg, mildly dilated aortic root 4.3 cm, IVC dilated with no collapse
# Anemia of chronic disease
-Hemoglobin stable at 9.2
-No active bleeding
# Recent C. Diff Colitis-colonization with C. difficile per ID August 14, 2023
#Lumbar Osteomyelitis/Discitis L2-L3, L3-L4
#Epidural abscess from L1�sacrum, status post laminectomy 06/13/2023
#Psoas abscess bilaterally
#MSSA bacteremia�cleared
-was on Ancef until 08/09/2023
#CAD: h/o PAD s/p RLE stenting
-Continue eliquis, Plavix
-Aspirin continued
# Essential hypertension
-Norvasc continue with parameters
# GERD
-PPI continued
# Hypotension
-Midodrine continued
#DVT prophylaxis
-Continue [employer] Eliquis Eliquis
Full code
--- NOTE | 2023-11-21 19:23 | W.PN.UPDATE ---
Update Note
Progress Note Update
This is an addendum to the H&P written by Wendy Farooq on 11/21/2023. Patient seen examined independently with NUCLEAR TECHNICIAN.
68-year-old male with past medical history of ESRD on hemodialysis Friday, Friday, Friday, right BKA, anemia of chronic disease, C. difficile colitis, lumbar osteomyelitis/discitis, CAD on aspirin, PAD with right lower extremity stent on Eliquis,
essential hypertension, GERD, hypotension, here for missing last few dialysis sessions due to chronic right shoulder pain.
Labs show potassium 6.5, anion gap metabolic acidosis with bicarb of 13.
Shoulder x-ray shows mild degenerative changes of the right acromioclavicular joint.
Nephrology recommended Lokelma every 8 hours. Planning on dialysis tomorrow.
[2023-11-21 20:05] LABS: Magnesium 1.9 mg/dl (1.6-2.3); Phosphorus 7.9 mg/dl (2.5-4.5)
--- NOTE | 2023-11-21 21:32 | PTCARENOTE ---
Tried to call Br[facility] Sheffield several times and no one answered just a recording. Pt does not know if he got the flu or pna vaccine but he would like on discharge.
[2023-11-21 21:38] LABS: Glucose - Point of Care 137 mg/dl (70-99)
[2023-11-21] MEDS: SODIUM BICARBONATE 50 MEQ IV (21:55)
[2023-11-21] MEDS: ELIQUIS 5 MG PO (21:59)
[2023-11-21] MEDS: PROTONIX 40 MG PO (22:00)
[2023-11-21] MEDS: TYLENOL 1000 MG PO (22:00)
[2023-11-21] MEDS: TOPROL XL 50 MG PO (22:01)
[2023-11-21] MEDS: DILAUDID 4 MG PO (22:06)
[2023-11-22] VITALS (8 sets, daily range): BP systolic 149–168; BP diastolic 77–92; BMI 27.1
[2023-11-22] MEDS: SODIUM BICARBONATE 50 MEQ IV (02:26)
[2023-11-22] MEDS: TYLENOL 1000 MG PO ×4 (04:31→21:06)
[2023-11-22] MEDS: LOKELMA 10 GRAM PO (06:31)
--- NOTE | 2023-11-22 07:37 | W.PN.HOSP.TC ---
Today's Communication/Plan
-
cont HD Lokelma as per Nephro
Blood pressure control
Pain Control
wound care
Assessment / Plan
Assessment / Plan
Physical Exam
General: No acute distress appears comfortable at this time.
HEENT: NormoCephalic, Anicteric, PERRLA, [place] Conjunctivae and No Ptosis
Respiratory: Clear; No Wheezes, Rales or Rhonchi
Cardiac: S1/S2 and Regular Rhythm; No Murmur, Rub, Gallop or Peripheral Edema
GI: Soft, Non Tender, Non Distended and Normal Bowel Sounds
Musculoskeletal: No Clubbing, No Cyanosis, Right BKA
Neuro: Awake Alert Conversant Coherent
Psych: Mild confusion noted re-directable
68-year-old male with past medical history of ESRD on hemodialysis Friday, Friday, Friday, right BKA, anemia of chronic disease, C. difficile colitis, lumbar osteomyelitis/discitis, CAD on aspirin, PAD with right lower extremity stent on Eliquis,
essential hypertension, GERD, hypotension, here for missed dialysis sessions (reportedly due to argument with staff). Hyperkalemic anion gap metabolic acidosis.
#ESRD on dialysis Friday -Friday -Friday refusing sessions reportedly d/t argument with staff
#Acute Hyperkalemia improving
Patient reports still voids 5-6 times a day very small amounts
Nephro eval appreciated
cont HD Lokelma as per Nephro
#Acute Metabolic Encephalopathy
suspect d/t missed dialysis sessions, uremic encephalopathy
improving
cont HD as above
#PAD
#Ischemic right heel wound status post amputation 07/22/2023
#Stump infection with open wound at prior suture border 08/22/2023
#Active open dried wound bottom of right BKA site no surrounding erythema or drainage
Treated with IV Zosyn and prophylactic oral Vanco to prevent C. difficile infection on prior admit
-Wound regimen per longterm record wash with normal saline, pat dry, apply silver alginate and foam dressing
-Consult wound care
#A-fib this was new onset 08/27/2023/paroxysmal
EKG current NSR
continue Eliquis 5 mg twice daily,
metoprolol succinate 50 mg twice daily
#Anemia of chronic disease
#ESRD likely contributing to anemia
Monitor H&H
#Lumbar Osteomyelitis/Discitis L2-L3, L3-L4
#Epidural abscess from L1�sacrum, status post laminectomy 06/13/2023
#Psoas abscess bilaterally
#MSSA bacteremia�cleared
-was on Ancef until 08/09/2023
#CAD: h/o PAD s/p RLE stenting
-Continue Aspirin Eliquis
# Essential hypertension
-Cont home Metoprolol
-monitor and titrate antihypertensive regimen as necessary.
# GERD
-PPI continued
# hx Hypotension
-Midodrine prn
#DVT prophylaxis
-Continue [employer] Eliquis
Full code
Discussed with patient and patient's sister Jayde
I spent a total of 50 minutes with the patient or on the floor. More than 50% of this time involved counseling and coordination of care.
Anticipated Discharge: 24 - 48 hours
Subjective/Interval History
-
Date of Service: November 22, 2023
Seen and examined at bedside. Patient mildly confused. Had to be reminded that he was in hospital and not at [facility]. Accepted reminder though. Denied pain.
Objective Data
-
Labs:
Laboratory Results
11/22/23
06:00
WBC Pending
Hgb Pending
Hct Pending
Plt Count Pending
Sodium Pending
Potassium Pending
Chloride Pending
Carbon Dioxide Pending
BUN Pending
Creatinine Pending
Glucose Pending
Calcium Pending
Total Bilirubin Pending
AST Pending
ALT Pending
Alkaline Phosphatase Pending
Vital Signs:
Vital Signs
Temp Pulse Resp BP Pulse Ox
98.3 F 70 16 149/81 99
11/22/23 03:07 11/22/23 03:07 11/22/23 03:07 11/22/23 03:07 11/22/23 03:07
I&O
11/21/23 11/22/23 11/23/23
06:59 06:59 06:59
Intake Total 240 / 240
Output Total 350 / 350
Balance -110 / -110
[2023-11-22] MEDS: LOW STRENGTH ASPIRIN 81 MG PO (08:18)
[2023-11-22] MEDS: ELIQUIS 5 MG PO ×2 (08:18→21:06)
[2023-11-22] MEDS: VITAMIN D3 (cholecalciferol) 25 MCG PO (08:18)
[2023-11-22] MEDS: LIDOCAINE 4% PATCH 1 PATCH TOPICAL (08:18)
[2023-11-22] MEDS: PROTONIX 40 MG PO ×2 (08:18→21:06)
[2023-11-22] MEDS: TOPROL XL PO (08:18)
[2023-11-22] MEDS: DILAUDID 4 MG PO ×2 (08:28→17:49)
[2023-11-22 08:50] LABS: % Basophils 0.8 % (0-2); % Eosinophils 3.4 % (0-6); % Immature Granulocytes 0.6 % (0-0.5); % Lymphocytes 16.6 % (20.5-51.1); % Monocytes 14.8 % (1.7-9.3); % Neutrophils 63.8 % (42.2-75.2); Absolute Basophils 0.1 10^3/uL (0-0.2); Absolute Eosinophils 0.2 10^3/uL (0-0.7); Absolute Lymphocytes 1.2 10^3/uL (1.2-3.4); Absolute Monocytes 1.1 10^3/uL (0.1-0.6); Absolute Neutrophils 4.5 10^3/uL (1.4-6.5); Hematocrit 27.1 % (39.0-52.0); Hemoglobin 8.6 g/dL (13.0-18.0); Mean Corp Hgb Conc. 31.7 g/dL (33.0-37.0); Mean Corpuscular Hgb 27.7 pg (27.0-31.0); Mean Corpuscular Volume 87.4 fL (80.0-94.0); Mean Platelet Volume 9.1 fL (7.4-10.4); Nucleated Red Blood Cells % 0 % (-); Platelet Count 465 10^3/uL (130-400); Red Cell Dist. Width 17.5 % (11.5-14.5); White Blood Cell Count 7.1 10^3/uL (4.8-10.8)
[2023-11-22 08:55] LABS: ALT (SGPT) < 10 U/L (0-50); AST (SGOT) 13 U/L (17-59); Albumin 3.3 g/dl (3.5-5.0); Alkaline Phosphatase 144 U/L (38-126); Blood Urea Nitrogen 90 mg/dl (9-20); Calcium 9.6 mg/dl (8.4-10.2); Carbon Dioxide 15 mmol/L (22-30); Chloride 102 mmol/L (98-107); Estimated Creatinine Clearance 10 ml/min; Glucose 87 mg/dl (70-99); Magnesium 1.8 mg/dl (1.6-2.3); Potassium 5.3 mmol/L (3.5-5.1); Sodium 138 mmol/L (135-145); Total Protein 6.7 g/dl (6.3-8.2); eGFR 6.65
--- NOTE | 2023-11-22 09:02 | W.CON.NEPH ---
Consultation
-
Date/Time Consultation Requested: 11/21/231811
Date/Time Consultation Performed: 11/22/23 0847
Requesting Provider: Malik Good
Performing Provider: Gris Hewitt
Reason for Consultation: ESRD
Medical History
-
Chief Complaint: Missed HD due to right shoulder pain
History of Present Illness:
68-year-old male from [facility] complaining of acute on chronic right shoulder pain secondary to prior rotator cuff repair 30 years ago with chronic pain on hydromorphone, gabapentin, HTN on BB and prn midodrine, PAD s/p right BKA,
ESRD on MWF HD through right IJ HD catheter, chr hyperkalemia on Lokelma, P afib on eliquis who brought from [facility] for missing HD. Pt reports not liking the staff the HD unit and he would only go for HD when he wanted and missed multiple HDs
in between, last HD was on 11/16 per pt. He notes to have diarrhea intermittently which was difficult him to stay on HD with out interrupting. He denies abd pain, n/v. No CP or SOB or fever or cough. In the ER he was noted to have potassium of 6.5
and bicarb at 13. He received Lokelma and IV bicarb pushesx2 over night.
Past Medical History
Paroxysmal A-fib new onset 08/24/2023
Discitis
Diverticulosis
Hypertension
GERD
Depression
End-stage renal disease
Osteomyelitis
Peripheral vascular disease
Type 2 diabetes
C. difficile colitis
GI bleed
Past Medical History: Other
Past Surgical History: Other (laminectomy, Rt BKA)
Social History
Tobacco: Smoker (Currently smoking 3 cigarettes a day for the last 4 months prior 1 pack a day 54 years)
Alcohol: Occasional (Every other week prior to July 2023)
Drug: None
Personal: Single
Living: Prison
Employment: Disabled
Family History
Mother and father reports history of CHF/NV mother age 64 father age 66 patient with 2 sisters healthy, 3 brothers with history of mental illness
Family History: Not Pertinent
Allergies / Home Medications
Allergy/AdvReac Type Severity Reaction Status Date / Time
No Known Allergies Allergy Verified 11/21/23 15:10
�Medication �Instructions �Recorded �Confirmed �Type
acetaminophen 500 mg tablet 1,000 mg PO TID Pain 06/29/23 11/21/23 History
cholecalciferol (vitamin D3) 25 25 mcg PO DAILY Supplement 06/29/23 11/21/23 History
mcg (1,000 unit) tablet
lidocaine 4 % topical patch 1 patch topical DAILY right 06/29/23 11/21/23 History
shoulder
famotidine 20 mg tablet 20 mg PO Q48H #0 tabs 07/26/23 11/21/23 Rx
pantoprazole 40 mg tablet,delayed 40 mg PO BID #0 tabs 07/26/23 11/21/23 Rx
release
midodrine 2.5 mg tablet 2.5 mg PO Q8HPRN PRN sbp<100 08/22/23 11/21/23 History
apixaban 5 mg tablet (Eliquis) 5 mg PO BID #60 tabs 08/29/23 11/21/23 Rx
metoprolol succinate 50 mg 50 mg PO BID #60 tabs 08/29/23 11/21/23 Rx
tablet,extended release 24 hr
sodium zirconium cyclosilicate 10 10 g PO MOWE 10/22/23 11/21/23 History
gram oral powder packet (Lokelma)
sodium zirconium cyclosilicate 5 5 g PO MOWE 10/22/23 11/21/23 History
gram oral powder packet (Lokelma)
aspirin 81 mg chewable tablet 81 mg PO DAILY 11/21/23 11/21/23 History
gabapentin 100 mg capsule 100 mg PO MOWEFR 11/21/23 11/21/23 History
hydromorphone 4 mg tablet 4 mg PO Q8HPRN PRN severe pain 11/21/23 11/21/23 History
sennosides 8.6 mg-docusate sodium 2 tab PO [id number] PRN constipation 11/21/23 11/21/23 History
50 mg tablet (Stool
Softener-Laxative)
Review of Systems
-
all complete 12 point ROS have been inquired and found negative other than state din HPI
Physical Exam
Vital Signs
Vital Signs
Temp Pulse Resp BP Pulse Ox
97.9 F 80 18 156/84 99
11/22/23 07:45 11/22/23 08:18 11/22/23 07:45 11/22/23 08:18 11/22/23 07:45
Lab Results
WBC 7.1 10^3/uL (4.8-10.8) 11/22/23 07:57
RBC 3.10 10^6/uL (4.70-6.10) L 11/22/23 07:57
Hgb 8.6 g/dL (13.0-18.0) L 11/22/23 07:57
Hct 27.1 % (39.0-52.0) L 11/22/23 07:57
Plt Count 465 10^3/uL (130-400) H 11/22/23 07:57
Sodium 138 mmol/L (135-145) 11/22/23 07:57
Potassium 5.3 mmol/L (3.5-5.1) H 11/22/23 07:57
Chloride 102 mmol/L (98-107) 11/22/23 07:57
Carbon Dioxide 15 mmol/L (22-30) L 11/22/23 07:57
BUN 90 mg/dl (9-20) H 11/22/23 07:57
Creatinine 8.2 mg/dL (0.7-1.3) H* 11/22/23 07:57
eGFR 6.65 11/22/23 07:57
Glucose 87 mg/dl (70-99) 11/22/23 07:57
Calcium 9.6 mg/dl (8.4-10.2) 11/22/23 07:57
Phosphorus 7.9 mg/dl (2.5-4.5) H 11/21/23 15:13
Albumin 3.3 g/dl (3.5-5.0) L 11/22/23 07:57
Right shoulder xray:
IMPRESSION: Mild degenerative change of the right acromioclavicular joint. Minimal degenerative change of the inferior glenohumeral joint.
Subcutaneous edema is suggested. No soft tissue calcifications.
Physical Exam
General: Awake, Alert, Oriented, AOx3, No Distress and Nontoxic
HEENT: EOMI, Anicteric, Neck Supple and Trachea Midline
Respiratory: Clear, Normal Excursion and Nonlabored Respirations
Cardiac: S1/S2 and Regular Rate/Rhythm
Breast: Deferred by me
Abdomen: Soft, Nontender and Nondistended
Musculoskeletal: No Cyanosis and Edema (1+left leg, rt BKA stump)
Skin: No Rash
Neuro: Nonfocal/Grossly Intact
Psych: Mood/afflect pleasant and Other (poor insight)
Vascular Access: CVC
Data Reviewed
-
Labs: Labs Reviewed by me and Discussed with Patient
Assessment/Plan
-
Impression:
ESRD on dialysis Friday -Friday -Friday refused last 2 sessions
Hyperkalemia
Severe Agap met acidosis
PAD
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
Stump infection with open wound at prior suture border 08/22/2023
Active open dried wound bottom of right BKA site
P A-fib this was new onset 08/27/2023
2D echo 08/26/2023: EF 50-55%, mild TR, small-moderate pericardial effusion,PASP 40 to 45 mmHg, mildly dilated aortic root 4.3 cm,
Anemia of chronic disease
Recent C. Diff Colitis-colonization with C. difficile July
Lumbar Osteomyelitis/Discitis L2-L3, L3-L4
Epidural abscess from L1�sacrum, status post laminectomy 06/13/2023
Psoas abscess bilaterally
CAD: h/o PAD s/p RLE stenting
History of hypertension with relative hypotension on midodrine prn
GERD
Tunneled right IJ catheter
Diarrhea
Plan:
A/w missing HD, last HD was 11/16 per pt report
reviewed with pt not to miss HDs and risk of .
HD today
SARTHAK on dialysis
renal diet and FR
vol status seem stable
would resume LOkelma from tomorrow
I am not sure the etiology of intermittent diarrhea
--- NOTE | 2023-11-22 09:29 | W.PN.NEPH.HD ---
Assessment
-
pt seen during HD
vitals stable
long HD today
CVC functions fine
Progress Note - Hemodialysis
-
Date of Service: November 22, 2023
Duration: 4 hours
Potassium Bath: 2
Calcium Bath: 2.5
Opti-Dialyzer: 160
Ultrafiltration: Other (2.5-3)
Blood Flow: 400
Dialysate Flow: 600
Heparin: no
EPO: 4000
[2023-11-22] MEDS: RETACRIT 4000 UNITS IV (09:40)
[2023-11-22 13:41] LABS: Glycohemoglobin (HgbA1c) 5.5 % (4.0-5.6)
[2023-11-22] MEDS: TOPROL XL 50 MG PO ×2 (13:48→21:05)
--- NOTE | 2023-11-22 16:13 | CM ---
Adm Dx - Right shoulder pain, missed dialysis
Pt from [facility](confirmed by Amy at facility)
Receiving HD - --
Plan - to return to [facility] at d/c
h/o BKA - Pt reports can transport self to
Plan - anticipate return to [facility] at d/c
[2023-11-22] MEDS: PEPCID 20 MG PO (21:06)
[2023-11-23] MEDS: DILAUDID 4 MG PO ×2 (01:49→15:35)
[2023-11-23 03:01] VITALS: BP 160/86
--- NOTE | 2023-11-23 04:30 | PTCARENOTE ---
Pt has removed tele box multiple times during the night. Refusing to have it put back on at this time. Will attempt again later.
[2023-11-23 05:17] VITALS: BMI 26.8
[2023-11-23 06:06] LABS: % Basophils 0.8 % (0-2); % Immature Granulocytes 0.5 % (0-0.5); % Lymphocytes 13.9 % (20.5-51.1); % Monocytes 18.9 % (1.7-9.3); % Neutrophils 62.9 % (42.2-75.2); Absolute Basophils 0.1 10^3/uL (0-0.2); Absolute Eosinophils 0.2 10^3/uL (0-0.7); Absolute Lymphocytes 1.1 10^3/uL (1.2-3.4); Absolute Monocytes 1.5 10^3/uL (0.1-0.6); Absolute Neutrophils 4.9 10^3/uL (1.4-6.5); Hematocrit 28.3 % (39.0-52.0); Hemoglobin 9.2 g/dL (13.0-18.0); Mean Corp Hgb Conc. 32.5 g/dL (33.0-37.0); Mean Corpuscular Hgb 28.8 pg (27.0-31.0); Mean Corpuscular Volume 88.7 fL (80.0-94.0); Mean Platelet Volume 8.7 fL (7.4-10.4); Nucleated Red Blood Cells % 0 % (-); Platelet Count 373 10^3/uL (130-400); Red Blood Cell Count 3.19 10^6/uL (4.70-6.10); Red Cell Dist. Width 17.3 % (11.5-14.5); White Blood Cell Count 7.7 10^3/uL (4.8-10.8)
[2023-11-23 06:42] LABS: ALT (SGPT) < 10 U/L (0-50); AST (SGOT) 12 U/L (17-59); Albumin 2.9 g/dl (3.5-5.0); Alkaline Phosphatase 144 U/L (38-126); Blood Urea Nitrogen 52 mg/dl (9-20); Calcium 8.8 mg/dl (8.4-10.2); Carbon Dioxide 23 mmol/L (22-30); Chloride 100 mmol/L (98-107); Estimated Creatinine Clearance 18 ml/min; Glucose 87 mg/dl (70-99); Potassium 4.1 mmol/L (3.5-5.1); Sodium 140 mmol/L (135-145); Total Bilirubin 0.7 mg/dl (0.2-1.3); Total Protein 5.7 g/dl (6.3-8.2); eGFR 12.96
[2023-11-23 07:50] VITALS: BP 160/86
--- NOTE | 2023-11-23 08:47 | W.PN.HOSP.TC ---
Today's Communication/Plan
-
cont HD as per Nephro
check CT head
Hyperkalemia resolved, ok to discontinue media monitor
cont wound care
PT/OT
Assessment / Plan
Assessment / Plan
Physical Exam
General: No acute distress appears comfortable at this time.
HEENT: NormoCephalic, Anicteric, PERRLA, [place] Conjunctivae and No Ptosis
Respiratory: Clear; No Wheezes, Rales or Rhonchi
Cardiac: S1/S2 and Regular Rhythm; No Murmur, Rub, Gallop or Peripheral Edema
GI: Soft, Non Tender, Non Distended and Normal Bowel Sounds
Musculoskeletal: No Clubbing, No Cyanosis, Right BKA
Neuro: AOx2-3 struggled when reporting current state location (reported the wrong state a few times before reporting correct state [place])
Psych: Calm
68-year-old male with past medical history of ESRD on hemodialysis Friday, Friday, Friday, right BKA, anemia of chronic disease, C. difficile colitis, lumbar osteomyelitis/discitis, CAD on aspirin, PAD with right lower extremity stent on Eliquis,
essential hypertension, GERD, hypotension, here for missed dialysis sessions (reportedly due to argument with staff). Hyperkalemic anion gap metabolic acidosis.
#ESRD on dialysis Friday -Friday -Friday refusing sessions reportedly d/t argument with staff
#Acute Hyperkalemia Resolved with Lokelma and HD
Patient reports still voids 5-6 times a day very small amounts
Nephro eval appreciated
cont HD as per Nephro
#Acute Metabolic Encephalopathy
suspect d/t missed dialysis sessions, uremic encephalopathy
improving though some waxing and waning seems to be present, possible
cont HD as above
check CT head
#PAD
#Ischemic right heel wound status post amputation 07/22/2023
#Stump infection with open wound at prior suture border 08/22/2023
#Active open dried wound bottom of right BKA site no surrounding erythema or drainage
Treated with IV Zosyn and prophylactic oral Vanco to prevent C. difficile infection on prior admit
-Wound regimen per group home record wash with normal saline, pat dry, apply silver alginate and foam dressing
-Consult wound care
#A-fib this was new onset 08/27/2023/paroxysmal
EKG current NSR
continue Eliquis 5 mg twice daily,
metoprolol succinate 50 mg twice daily
#Anemia of chronic disease
#ESRD likely contributing to anemia
Monitor H&H
#Lumbar Osteomyelitis/Discitis L2-L3, L3-L4
#Epidural abscess from L1�sacrum, status post laminectomy 06/13/2023
#Psoas abscess bilaterally
#MSSA bacteremia�cleared
-was on Ancef until 08/09/2023
#CAD: h/o PAD s/p RLE stenting
-Continue Aspirin Eliquis
# Essential hypertension
-Cont home Metoprolol
-monitor and titrate antihypertensive regimen as necessary
-currently elevated pressures systolic 150s 160s appear to be d/t hypervolemia, discussed with nephro, more improve with further dialysis planned for 11/23
# GERD
-PPI continued
# hx Hypotension (not seen here so far)
-Midodrine prn
#DVT prophylaxis
-Continue PEDIATRIC OPHTHALMOLOGIST Eliquis
Full code
Discussed with patient and patient's sister Jayde
I spent a total of 50 minutes with the patient or on the floor. More than 50% of this time involved counseling and coordination of care.
Anticipated Discharge: 24 - 48 hours
Subjective/Interval History
-
Date of Service: November 23, 2023
Seen and examined at bedside in no acute distress sitting up comfortably bed. Some confusion persists though improvement noted from yesterday. Knew that he was in a hospital as opposed to having to be reminded that he was not at [facility].
Struggled a little to remember that he was in the [facility].
Objective Data
-
Labs:
Laboratory Results
11/23/23
05:51
WBC 7.7
Hgb 9.2 L
Hct 28.3 L
Plt Count 373
Sodium 140
Potassium 4.1
Chloride 100
Carbon Dioxide 23
BUN 52 H
Creatinine 4.7 H*
Glucose 87
Calcium 8.8
Total Bilirubin 0.7
AST 12 L
ALT < 10
Alkaline Phosphatase 144 H
Vital Signs:
Vital Signs
Temp Pulse Resp BP Pulse Ox
97.7 F 82 18 160/86 100
11/23/23 07:50 11/23/23 07:50 11/23/23 07:50 11/23/23 07:50 11/23/23 07:50
I&O
11/22/23 11/23/23 11/24/23
06:59 06:59 06:59
Intake Total 240 / 240 660 / 660
Output Total 350 / 350 875 / 875 225 / 225
Balance -110 / -110 -215 / -215 -225 / -225
[2023-11-23] MEDS: LOW STRENGTH ASPIRIN 81 MG PO (08:58)
[2023-11-23] MEDS: PROTONIX 40 MG PO ×2 (08:58→21:28)
[2023-11-23] MEDS: LIDOCAINE 4% PATCH 1 PATCH TOPICAL (08:58)
[2023-11-23] MEDS: TYLENOL 1000 MG PO ×3 (08:58→21:30)
[2023-11-23] MEDS: VITAMIN D3 (cholecalciferol) 25 MCG PO (08:59)
[2023-11-23] MEDS: TOPROL XL 50 MG PO ×2 (08:59→21:28)
[2023-11-23] MEDS: ELIQUIS 5 MG PO ×2 (08:59→21:30)
--- NOTE | 2023-11-23 15:21 | W.PN.NEPH.PH ---
Today's Communication / Plan
-
HD tomorrow
Assessment/Plan
-
Impression:
ESRD on dialysis Friday -Friday -Friday refused last 2 sessions
Hyperkalemia
Severe Agap met acidosis
PAD
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
Stump infection with open wound at prior suture border 08/22/2023
Active open dried wound bottom of right BKA site
P A-fib this was new onset 08/27/2023
2D echo 08/26/2023: EF 50-55%, mild TR, small-moderate pericardial effusion,PASP 40 to 45 mmHg, mildly dilated aortic root 4.3 cm,
Anemia of chronic disease
Recent C. Diff Colitis-colonization with C. difficile July
Lumbar Osteomyelitis/Discitis L2-L3, L3-L4
Epidural abscess from L1�sacrum, status post laminectomy 06/13/2023
Psoas abscess bilaterally
CAD: h/o PAD s/p RLE stenting
History of hypertension with relative hypotension on midodrine prn
GERD
Tunneled right IJ catheter
Diarrhea
Plan:
A/w missing HD,
reviewed with pt not to miss HDs and risk of .
HD tomorrow
renal diet and FR
BP high could get better with more UF, try tomorrow
resume LOkelma as needed
-
-
Date of Service: November 23, 2023
CC / HPI / ROS
-
Chief Complaint:
ESRD
History of Present Illness:
completed HD 11/21
k normal, BP high
on RA , no fever
wt are down
Review of Systems:
no cp or sob
right BKA stump open with non healed wound incision
Labs
-
Labs:
WBC 7.7 10^3/uL (4.8-10.8) 11/23/23 05:51
RBC 3.19 10^6/uL (4.70-6.10) L 11/23/23 05:51
Hgb 9.2 g/dL (13.0-18.0) L 11/23/23 05:51
Hct 28.3 % (39.0-52.0) L 11/23/23 05:51
Plt Count 373 10^3/uL (130-400) 11/23/23 05:51
Sodium 140 mmol/L (135-145) 11/23/23 05:51
Potassium 4.1 mmol/L (3.5-5.1) 11/23/23 05:51
Chloride 100 mmol/L (98-107) 11/23/23 05:51
Carbon Dioxide 23 mmol/L (22-30) 11/23/23 05:51
BUN 52 mg/dl (9-20) H 11/23/23 05:51
Creatinine 4.7 mg/dL (0.7-1.3) H* 11/23/23 05:51
eGFR 12.96 11/23/23 05:51
Glucose 87 mg/dl (70-99) 11/23/23 05:51
Calcium 8.8 mg/dl (8.4-10.2) 11/23/23 05:51
Phosphorus 7.9 mg/dl (2.5-4.5) H 11/21/23 15:13
Albumin 2.9 g/dl (3.5-5.0) L 11/23/23 05:51
Physical Exam
-
Vital Signs:
Vital Signs
Temp Pulse Resp BP Pulse Ox
97.7 F 82 18 160/86 100
11/23/23 07:50 11/23/23 08:59 11/23/23 07:50 11/23/23 08:59 11/23/23 07:50
Cardiovascular:: Regular rate and rhythm
Respiratory:: Bilateral: CTA
Lung Excursion:: Normal
Abdomen:: Nontender and Soft
Extremity Edema:: +1: Left:
Mccloud Catheter: No
Other Findings::
Rt BKA stump with non healed incision wound
[2023-11-23 15:31] VITALS: BP 165/93
[2023-11-23 23:44] VITALS: BP 153/85
[2023-11-24] MEDS: DILAUDID 4 MG PO (04:37)
[2023-11-24 05:45] VITALS: BMI 26.6
[2023-11-24 07:50] VITALS: BP 163/90
[2023-11-24] MEDS: ELIQUIS 5 MG PO (08:06)
[2023-11-24] MEDS: PROTONIX 40 MG PO (08:06)
[2023-11-24] MEDS: LOW STRENGTH ASPIRIN 81 MG PO (08:06)
[2023-11-24] MEDS: TYLENOL 1000 MG PO (08:06)
[2023-11-24] MEDS: LIDOCAINE 4% PATCH 1 PATCH TOPICAL (08:07)
[2023-11-24] MEDS: RETACRIT 4000 UNITS IV (08:48)
[2023-11-24 08:50] LABS: % Basophils 0.8 % (0-2); % Eosinophils 3.1 % (0-6); % Immature Granulocytes 0.6 % (0-0.5); % Lymphocytes 16.7 % (20.5-51.1); % Monocytes 14.2 % (1.7-9.3); % Neutrophils 64.6 % (42.2-75.2); Absolute Basophils 0.1 10^3/uL (0-0.2); Absolute Eosinophils 0.3 10^3/uL (0-0.7); Absolute Immature Granulocytes 0.1 10^3/uL (0-0.05); Absolute Lymphocytes 1.4 10^3/uL (1.2-3.4); Absolute Monocytes 1.2 10^3/uL (0.1-0.6); Absolute Neutrophils 5.5 10^3/uL (1.4-6.5); Hematocrit 27.7 % (39.0-52.0); Hemoglobin 8.9 g/dL (13.0-18.0); Mean Corp Hgb Conc. 32.1 g/dL (33.0-37.0); Mean Corpuscular Hgb 29.1 pg (27.0-31.0); Mean Corpuscular Volume 90.5 fL (80.0-94.0); Nucleated Red Blood Cells % 0 % (-); Platelet Count 427 10^3/uL (130-400); Red Blood Cell Count 3.06 10^6/uL (4.70-6.10); Red Cell Dist. Width 17.4 % (11.5-14.5); White Blood Cell Count 8.5 10^3/uL (4.8-10.8)
[2023-11-24 09:40] LABS: ALT (SGPT) < 10 U/L (0-50); AST (SGOT) 14 U/L (17-59); Albumin 2.1 g/dl (3.5-5.0); Alkaline Phosphatase 146 U/L (38-126); Blood Urea Nitrogen 65 mg/dl (9-20); Calcium 9.3 mg/dl (8.4-10.2); Carbon Dioxide 23 mmol/L (22-30); Chloride 99 mmol/L (98-107); Estimated Creatinine Clearance 15 ml/min; Glucose 97 mg/dl (70-99); Potassium 4.3 mmol/L (3.5-5.1); Sodium 139 mmol/L (135-145); Total Bilirubin 0.8 mg/dl (0.2-1.3); Total Protein 6.4 g/dl (6.3-8.2); eGFR 10.73
--- NOTE | 2023-11-24 10:38 | W.PN.NEPH.HD ---
Assessment
-
Seen on HD. no new complaints. VSS, access ok
Progress Note - Hemodialysis
-
Date of Service: November 24, 2023
Duration: 30 minutes and 3 hours
Potassium Bath: 2
Calcium Bath: 2.5
Opti-Dialyzer: 160
Ultrafiltration: Other (3kg)
Blood Flow: 400
Dialysate Flow: 600
Heparin: no
EPO: 4000 units
[2023-11-24] MEDS: VITAMIN D3 (cholecalciferol) 25 MCG PO (11:42)
[2023-11-24] MEDS: NEURONTIN 100 MG PO (11:42)
[2023-11-24] MEDS: TOPROL XL 50 MG PO (11:43)
--- NOTE | 2023-11-24 11:44 | W.PN.HOSP.TC ---
Today's Communication/Plan
-
HD today
counseled on compliance with HD
dc to SNF
Assessment / Plan
Assessment / Plan
Physical Exam
General: No acute distress appears comfortable at this time.
HEENT: NormoCephalic, Anicteric, PERRLA, [place] Conjunctivae and No Ptosis
Respiratory: Clear; No Wheezes, Rales or Rhonchi
Cardiac: S1/S2 and Regular Rhythm; No Murmur, Rub, Gallop or Peripheral Edema
GI: Soft, Non Tender, Non Distended and Normal Bowel Sounds
Musculoskeletal: No Clubbing, No Cyanosis, Right BKA
Neuro: AOx2-3 struggled when reporting current state location (reported the wrong state a few times before reporting correct state [place])
Psych: Calm
68-year-old male with past medical history of ESRD on hemodialysis Friday, Friday, Friday, right BKA, anemia of chronic disease, C. difficile colitis, lumbar osteomyelitis/discitis, CAD on aspirin, PAD with right lower extremity stent on Eliquis,
essential hypertension, GERD, hypotension, here for missed dialysis sessions (reportedly due to argument with staff). Hyperkalemic anion gap metabolic acidosis.
#ESRD on dialysis Friday -Friday -Friday
#Acute Hyperkalemia Resolved with Lokelma and HD
Patient reports still voids 5-6 times a day very small amounts
Nephro eval appreciated
cont HD as per Nephro
#Acute Metabolic Encephalopathy
suspect d/t missed dialysis sessions, uremic encephalopathy
cont HD as above
check CT head-no acute endocrine abnormality noted.
#PAD
#Ischemic right heel wound status post amputation 07/22/2023
#Stump infection with open wound at prior suture border 08/22/2023
#Active open dried wound bottom of right BKA site no surrounding erythema or drainage
-Wound regimen per retirement record wash with normal saline, pat dry, apply silver alginate and foam dressing
-Consult wound care
#A-fib this was new onset 08/27/2023/paroxysmal
EKG current NSR
continue Eliquis 5 mg twice daily,
metoprolol succinate 50 mg twice daily
#Anemia of chronic disease
#ESRD likely contributing to anemia
Monitor H&H
#Lumbar Osteomyelitis/Discitis L2-L3, L3-L4
#Epidural abscess from L1�sacrum, status post laminectomy 06/13/2023
#Psoas abscess bilaterally
#MSSA bacteremia�cleared
-was on Ancef until 08/09/2023
#CAD: h/o PAD s/p RLE stenting
-Continue Aspirin Eliquis
# Essential hypertension
-Cont home Metoprolol
-monitor and titrate antihypertensive regimen as necessary
-Aggressive hemodialysis should help with blood pressure
# GERD
-PPI continued
# hx Hypotension (not seen here so far)
-Midodrine prn
#DVT prophylaxis
-Continue [employer] Eliquis
Full code
Discussed with nephrology. Okay for discharge.
More than 30 minutes spent in discharge including
Final examination of the patient
Summarizing hospital stay
Instructions for continuing care to all relevant caregivers
Preparation of discharge records, prescriptions, and referral forms
Total time spent (in minutes): 46
Anticipated Discharge: Today
Subjective/Interval History
-
Date of Service: November 24, 2023
Denies chest pain or sob
seen on HD
Objective Data
-
Labs:
Laboratory Results
11/24/23
08:10
WBC 8.5
Hgb 8.9 L
Hct 27.7 L
Plt Count 427 H
Sodium 139
Potassium 4.3
Chloride 99
Carbon Dioxide 23
BUN 65 H
Creatinine 5.5 H*
Glucose 97
Calcium 9.3
Total Bilirubin 0.8
AST 14 L
ALT < 10
Alkaline Phosphatase 146 H
Vital Signs:
Vital Signs
Temp Pulse Resp BP Pulse Ox
97.7 F 81 16 163/90 100
11/24/23 07:50 11/24/23 07:50 11/24/23 07:50 11/24/23 07:50 11/24/23 07:50
I&O
11/23/23 11/24/23 11/25/23
06:59 06:59 06:59
Intake Total 660 / 660 900 / 900
Output Total 875 / 875 1275 / 1275
Balance -215 / -215 -375 / -375
--- NOTE | 2023-11-24 11:51 | W.DCSUMMARY ---
Discharge Summary
Discharge Data
Date of Admission: 11/21/23
Date of Discharge: 11/24/23
-
Pending Results: No
Hospital Course
68-year-old male with past medical history of ESRD on hemodialysis Friday, Friday, Friday, right BKA, anemia of chronic disease, C. difficile colitis, lumbar osteomyelitis/discitis, CAD on aspirin, PAD with right lower extremity stent on Eliquis,
essential hypertension, GERD, hypotension, here for missed dialysis sessions (reportedly due to argument with staff). Hyperkalemic anion gap metabolic acidosis. Patient was eval by nephrology. Patient underwent hemodialysis. Patient potassium
down trended. Patient also with confusion which seems secondary to uremic encephalopathy. Patient mentation improved with hemodialysis. CT head was negative for acute pathology.. Patient was tolerating diet. Patient was continued on his home
medication regimen. Patient was eval by PT OT and wound care. Patient with stabilization of potassium and other electrolytes. Patient be discharged back to [facility] and can continue with regular outpatient hemodialysis.
Discharge Plan
-
Patient Disposition: Detention/SNF
Discharge Diagnosis/Procedures: Acute metabolic encephalopathy secondary to missed hemodialysis session
Uremic encephalopathy
ESRD status post hemodialysis
Hyperkalemia
Anemia of chronic disease
Condition: Fair
Diet: 2 Gram Sodium and Restrict fluids to 48 oz
Activity: With assistance and As tolerated
Driving Restrictions: No driving
Activity Restrictions/Additional Instructions:
Wound Care Instructions
R BKA: clean with saline, Vashe moist gauze to dry dressing daily.
Follow up at wound care center call for an appointment.
Referrals:
Vinnie Barbosa MD [Family Provider] - in less than 1 week
Prescriptions:
Continued
lidocaine 4 % Adhesive Patch,Medicated
1 patch TOPICAL DAILY
acetaminophen 500 mg Tablet
1,000 mg PO TID
cholecalciferol (vitamin D3) 25 mcg (1,000 unit) Tablet
25 mcg PO DAILY
famotidine 20 mg Tablet
20 mg PO Q48H Qty: 0 0RF
pantoprazole 40 mg Tablet,Delayed Release (Dr/Ec)
40 mg PO BID Qty: 0 0RF
midodrine 2.5 mg Tablet
2.5 mg PO Q8HPRN PRN (Reason: sbp<100)
Eliquis 5 mg Tablet
5 mg PO BID Qty: 60 0RF
metoprolol succinate 50 mg Tablet Extended Release 24 Hr
50 mg PO BID Qty: 60 0RF
Lokelma 5 gram Powder In Packet
5 g PO MOWE
Lokelma 10 gram Powder In Packet
10 g PO MOWE
aspirin 81 mg Tablet,Chewable
81 mg PO DAILY
sennosides-docusate sodium [Stool Softener-Laxative] 8.6-50 mg tablet
2 tab PO [id number] PRN (Reason: constipation)
gabapentin 100 mg capsule
100 mg PO MOWEFR
hydromorphone 4 mg tablet
4 mg PO Q8HPRN PRN (Reason: severe pain)
Discharge Orders:
Discharge Patient (As Directed); Ordered 11/24/23
Ordered By: Clifford Brown
Discharge Date and Time
Print Language: UPPER SORBIAN
[2023-11-24] MEDS: FLUAD (65 yr+) 2024-2025 FORMULA 0.5 ML IM (12:09)
--- NOTE | 2023-11-24 12:13 | CM ---
Patient from [facility] with Hx ESRD on HD with Dx Acute Hyperkalemia due to missed dialysis sessions, Acute Metabolic Encephalopathy, active open dried wound bottom of right BKA site. To be seen by wound care nurse prior to d/c today. Per
nurse assessment; confused, mentation improving.
Spoke with Amy [facility]; they are able to accept the patient back today. for report [phone], fax [phone].
Spoke with patient's sister Jayde; she agrees with d/c today back to [facility]. IMM completed and copy sent to her email at [email or web address].
Plan [facility] today by ambulance.
--- NOTE | 2023-11-24 13:06 | WOUNDNOTE ---
MARZENA RN NOTE: Patient admitted with acute hyperkalemia. [facility] R BKA last admission 08/29/23 vascular did an I&D and washout of R BKA site then wound vac applied. Patient now presents with same surgical full thickness wound, dry crusty barnett brown eschar
at base, no drainage. Patient not using prosthetic leg he states. Patient found toughing wound with bare hands and nurse Paola reports patient takes off dressing. Instructed patient that he needs to stop touching wound and to keep dressing on.
Patient claims dressing falls off when he puts clothes on. Recommend Vashe moist gauze to dry dressing daily. Called [facility] for Vashe, dressing applied and will confirm with hospitalist. Updated nurse and discharge instructions.
[2023-11-24 13:35] VITALS: BP 115/69
--- NOTE | 2023-11-24 17:04 | W.PN.UPDATE ---
Update Note
Progress Note Update
Late entry patient seen at roughly 2 PM, he was scheduled to be seen in our office this week and I was asked by office staff to evaluate surgical site of prior amputation, no evidence of acute infection but would likely benefit from debridement and
possible wound VAC placement. Will schedule in the outpatient setting for debridement. Reviewed plan with attending Dr. Allen Mccloud who agrees
== END 2023-11-24 15:00 | DRG 640 ==
LOC: 2 NORTH 19:52
PROVIDERS: Clinical Nurse Specialist Family Health; Emergency Medicine; ADMITTING PHYSICIAN Hospitalist; ATTENDING PHYSICIAN Hospitalist; CONSULT PHYSICIAN Internal Medicine; EMERGENCY PHYSICIAN Emergency Medicine; FAMILY PHYSICIAN Internal Medicine
PROC: 5A1D70Z Performance of Urinary Filtration, Intermittent, Less than 6 Hours Per Day (ICD-10-PCS; 2023-11-22)
DX: E87.5 Hyperkalemia (principal); G93.41 Metabolic encephalopathy; N18.6 End stage renal disease; I12.0 Hypertensive chronic kidney disease with stage 5 chronic kidney disease or end stage renal disease; Z99.2 Dependence on renal dialysis; Z91.158 Patient's noncompliance with renal dialysis for other reason; D63.1 Anemia in chronic kidney disease; E11.22 Type 2 diabetes mellitus with diabetic chronic kidney disease; E11.51 Type 2 diabetes mellitus with diabetic peripheral angiopathy without gangrene; F32.A Depression, unspecified; E87.20 Acidosis, unspecified; F17.210 Nicotine dependence, cigarettes, uncomplicated; G89.29 Other chronic pain; M25.511 Pain in right shoulder; I25.10 Atherosclerotic heart disease of native coronary artery without angina pectoris; I48.0 Paroxysmal atrial fibrillation; K21.9 Gastro-esophageal reflux disease without esophagitis; R19.7 Diarrhea, unspecified; Z79.01 Long term (current) use of anticoagulants; Z79.82 Long term (current) use of aspirin; Z89.511 Acquired absence of right leg below knee; Z86.19 Personal history of other infectious and parasitic diseases; Z87.19 Personal history of other diseases of the digestive system; Z87.39 Personal history of other diseases of the musculoskeletal system and connective tissue
CPT/HCPCS: 70450; 73030; 80053; 82962; 83036; 83735; 84100; 85025; 87070; 90662; 93005; 97163; 99285; G0008; G0257; P9047; Q5106

== ENCOUNTER 2023-12-08 16:37 | Inpatient (IN) | payer MEDICARE, OTHER, SELFPAY ==
[2023-12-08] VITALS (7 sets, daily range): BP systolic 131–161; BP diastolic 68–91; BMI 25.7
[2023-12-08 14:52] LABS: % Basophils 0.6 % (0-2); % Eosinophils 1.6 % (0-6); % Immature Granulocytes 1.4 % (0-0.5); % Lymphocytes 14.5 % (20.5-51.1); % Monocytes 13.6 % (1.7-9.3); % Neutrophils 68.3 % (42.2-75.2); Absolute Eosinophils 0.1 10^3/uL (0-0.7); Absolute Immature Granulocytes 0.1 10^3/uL (0-0.05); Absolute Lymphocytes 0.9 10^3/uL (1.2-3.4); Absolute Monocytes 0.9 10^3/uL (0.1-0.6); Absolute Neutrophils 4.3 10^3/uL (1.4-6.5); Hematocrit 23.4 % (39.0-52.0); Hemoglobin 7.7 g/dL (13.0-18.0); Mean Corp Hgb Conc. 32.9 g/dL (33.0-37.0); Mean Corpuscular Hgb 28.1 pg (27.0-31.0); Mean Corpuscular Volume 85.4 fL (80.0-94.0); Mean Platelet Volume 8.7 fL (7.4-10.4); Nucleated Red Blood Cells % 0 % (-); Platelet Count 445 10^3/uL (130-400); Red Blood Cell Count 2.74 10^6/uL (4.70-6.10); Red Cell Dist. Width 16.9 % (11.5-14.5); White Blood Cell Count 6.3 10^3/uL (4.8-10.8)
[2023-12-08 15:09] LABS: COVID-19 Antigen Positive (Negative)
[2023-12-08 15:17] LABS: ALT (SGPT) 10 U/L (0-50); AST (SGOT) 22 U/L (17-59); Albumin 2.9 g/dl (3.5-5.0); Alkaline Phosphatase 186 U/L (38-126); Blood Urea Nitrogen 96 mg/dl (9-20); Calcium 8.5 mg/dl (8.4-10.2); Carbon Dioxide 16 mmol/L (22-30); Chloride 102 mmol/L (98-107); Glucose 114 mg/dl (70-99); Potassium 5.1 mmol/L (3.5-5.1); Sodium 135 mmol/L (135-145); Total Bilirubin 0.9 mg/dl (0.2-1.3); eGFR 6.95
--- NOTE | 2023-12-08 15:18 | ED.GENMED ---
History of Present Illness
General
Chief Complaint: Weakness
Source: patient
Exam Limitations: none
Time Seen by Provider: 12/08/23 14:59
Nursing documentation reviewed up to this point in time: agreed with
History of Present Illness
History of Present Illness:
68-year-old male with past medical history of hypertension,diabetes, right BKA, ESRD on dialysis who presents to the emergency room from [facility] for evaluation of increasing weakness and confusion in the setting of COVID
infection and missed dialysis. Patient reportedly tested positive for COVID, has been complaining of myalgias and fatigue. Apparently last week refused dialysis for all 3 sessions because he was feeling too weak. According to [facility] staff
his last dialysis session was 11/28/2023. Today continues to refuse dialysis and now becoming increasingly confused, referred to the ER. Patient is mildly confused and somewhat limited as a historian for this reason; patient says that he feels
weak and achy but denies any other specific complaints. Denies chest pain or shortness of breath. Denies fever. Denies abdominal pain or vomiting. I asked the patient directly why he is refusing dialysis�he says 'I do not like the people who
give it to me.'
Past History
Past History
ED Past Medical History: HTN, NIDDM, Renal failure, Other (Anemia) and Other (Metabolic encephalopathy, hyponatremia)
ED Past Surgical History: Orthopedic (Laminectomy)
Social History
Tobacco: Non-smoker
Alcohol: None
Drug: None
Personal:
Living: [facility]
Review of Systems
Review of Systems
All Other Systems: ROS reviewed and negative except as documented in HPI and ROS
Constitutional: Reports fatigue; Denies fever
Respiratory: Denies cough or trouble breathing
Cardiac: Denies chest pain
ABD/GI: Denies abdominal pain, nausea or vomiting
: Denies flank pain
Musculoskeletal: Reports muscle pain (Myalgias)
Neurological: Denies headache
Phy Exam
Physical Exam
Physical Exam:
General: Sitting in bed lethargic but arousable to voice, oriented x 2
Head: Normocephalic, atraumatic
Eyes: Conjunctiva normal, sclera anicteric
Throat: Airway intact, handling secretions
Neck: Trachea midline, supple without meningismus
Lungs: Clear to auscultation bilaterally, no wheezing, rales, rhonchi
Heart: Regular rate and rhythm, no murmurs, gallops, or rubs; right chest wall dialysis port
Abd: Soft, non distended, nontender, no masses
Neuro: Lethargic but arousable to voice, follows commands, responds appropriately to questions, no focal deficits
Skin: Patient has wound on right stump approximately 3 x 5 cm with central eschar, faint rim of erythema, no warmth, drainage, tenderness or fluctuance
Extremities: Right BKA, left lower extremity +1 pitting edema
Scores
Heart Failure Risk
Heart Failure Risk Score: Not Applicable
Heart Score for Chest Pain Patients
STEMI patient?: Not applicable
Withdrawal Assessment of Alcohol
Withdrawal Assessment Completed?: Not applicable
Course
Orders/Labs/Results
Orders:
Orders
12/08/23 14:33
COVID-19 Antigen Urgent
Source: Nasal Swab
Complete Blood Count/With Diff Urgent
Comprehensive Metabolic Panel Urgent
12/08/23 15:00
Electrocardiogram (*1) Urgent
Reason for Study: QTc Monitoring
EKG- Treatment ONCE
12/08/23 15:01
CR Chest Portable - 1 View Urgent
Comment:
Reason For Exam: weakness, missed dialysis
Reason Study Needs to be Portable: Unable to Transport
12/08/23 15:35
Consult Nephrology [NEPHROLOGY CONSULT] Urgent
Consulting Provider: Gris Arnold
Was physician already notified: Yes
12/08/23 15:39
Case Management Consult ONCE
Case Management Consult: Long Term Placement
Abnormal Lab Results
12/08/23
14:33
RBC 2.74 L 10^6/uL
(4.70-6.10)
Hgb 7.7 L g/dL
(13.0-18.0)
Hct 23.4 L %
(39.0-52.0)
MCHC 32.9 L g/dL
(33.0-37.0)
RDW 16.9 H %
(11.5-14.5)
Plt Count 445 H 10^3/uL
(130-400)
Abs Immat Gran (auto) 0.1 H 10^3/uL
(0-0.05)
Absolute Lymphs (auto) 0.9 L 10^3/uL
(1.2-3.4)
Absolute Monos (auto) 0.9 H 10^3/uL
(0.1-0.6)
Immature Gran % 1.4 H %
(0-0.5)
Lymphocytes % 14.5 L %
(20.5-51.1)
Monocytes % 13.6 H %
(1.7-9.3)
Carbon Dioxide 16 L mmol/L
(22-30)
BUN 96 H mg/dl
(9-20)
Creatinine 7.9 H* mg/dL
(0.7-1.3)
Glucose 114 H mg/dl
(70-99)
Alkaline Phosphatase 186 H U/L
(38-126)
Total Protein 6.0 L g/dl
(6.3-8.2)
Albumin 2.9 L g/dl
(3.5-5.0)
SARS-CoV-2 Antigen Positive A
(Negative)
12/08/23 14:33
12/08/23 14:33
Vital Signs
Initial and Last Documented VS:
Initial Vital Signs
Temp Pulse Resp BP Pulse Ox
36.6 C 72 18 150/70 99
12/08/23 14:19 12/08/23 14:19 12/08/23 14:19 12/08/23 14:19 12/08/23 14:19
Last Documented Vital Signs
Temp Pulse Resp BP Pulse Ox
36.6 C 72 18 150/70 99
12/08/23 14:19 12/08/23 14:19 12/08/23 14:19 12/08/23 14:19 12/08/23 14:19
MDM/Problems Addressed
Differential Diagnosis Includes:
COVID, pneumonia, uremia
MDM/Problems Addressed:
68-year-old male presents with increasing fatigue, weakness, achiness and now increasing confusion in the setting of positive COVID test last week and 3 missed dialysis sessions. Hypertensive but otherwise normal vitals. Physical exam as above.
Place an IV check labs including a CBC, CMP. Check chest x-ray. Suspect patient likely increasingly uremic in the setting of missed dialysis. He says that he is not happy with the staff that is providing him his dialysis treatments at [facility]; I asked him if he understands that dialysis is keeping him alive and he says that he understands this. He says he is not suicidal, he says he does not want to and that he just does not like [facility].
Labs reviewed: CBC shows anemia�slight decrease from prior value but baseline has been between 7 and 9 in the setting of ESRD., CMP shows elevated BUN and creatinine 96/7.9. Metabolic acidosis likely uremia. He had a COVID swab sent in triage
which confirms positive. Awaiting chest x-ray. Case discussed with nephrology to arrange for dialysis�unfortunately will not be able to dialyze until tomorrow morning. All patient is mildly volume overloaded on exam he is not in respiratory
distress, has acceptable potassium. Will continue to monitor. Plan for admission pending dialysis treatment. I did consult case management to evaluate as well as it sounds like part of the underlying reason for his missed dialysis was discontent
with his current living facility. Case was discussed with the hospitalist.
Chronic conditions affecting care:
ESRD
*Radiology
Radiology exam reviewed: preliminary read by ED provider and radiology read reviewed
*Pulse Oximetry
Patient hypoxic: no
*Critical Care Note
Total Time (30-74mins, 75-104mins- exclusive of procedures): Not Applicable
Data Reviewed
Review of Other/Old Records Reveals: Labs and Records
Source: patient, records, ambulance crew, [facility] and [facility] records
Patient Management
Discussion with other providers: Hospitalist (Discussed with hospitalist), Destination Specialist (Discussed with nephrology) and prison staff (Discussed directly with [facility])
Escalation/DeEscalation of care consider admission/obs:
Admission indicated
ED Attending Note
-
Portions of this chart may have been created with voice recognition software.� Occasional wrong word or��sound alike� substitutions may have occurred due to the inherent limitations of voice recognition software.
Discharge Plan
Departure
Patient Disposition: Admit
Date of Disposition: 12/08/23
Time of Disposition: 15:35
Admit to doctor: Oralia
Presentation/result/management discussed w/ accepting MD/DO: Hospitalist
Discharge Problem:
Acute uremia, COVID-19
Prescriptions:
No Action
lidocaine 4 % Adhesive Patch,Medicated
1 patch TOPICAL DAILY
acetaminophen 500 mg Tablet
1,000 mg PO TID
cholecalciferol (vitamin D3) 25 mcg (1,000 unit) Tablet
25 mcg PO DAILY
famotidine 20 mg Tablet
20 mg PO Q48H Qty: 0 0RF
pantoprazole 40 mg Tablet,Delayed Release (Dr/Ec)
40 mg PO BID Qty: 0 0RF
midodrine 2.5 mg Tablet
2.5 mg PO Q8HPRN PRN (Reason: sbp<100)
Eliquis 5 mg Tablet
5 mg PO BID Qty: 60 0RF
metoprolol succinate 50 mg Tablet Extended Release 24 Hr
50 mg PO BID Qty: 60 0RF
Lokelma 5 gram Powder In Packet
5 g PO MOWE
Lokelma 10 gram Powder In Packet
10 g PO MOWE
aspirin 81 mg Tablet,Chewable
81 mg PO DAILY
sennosides-docusate sodium [Stool Softener-Laxative] 8.6-50 mg tablet
2 tab PO [id number] PRN (Reason: constipation)
gabapentin 100 mg capsule
100 mg PO MOWEFR@0800
hydromorphone 4 mg tablet
4 mg PO Q8HPRN PRN (Reason: severe pain)
Interventions
Interventions:
*Risk Screen - Suicide Last Done: 12/08/23 14:19
*General Assessment Last Done: 12/08/23 14:19
*Neglect/Abuse Screening Last Done: 12/08/23 14:19
Discharge Date and Time
Print Language: KYRGYZ
--- NOTE | 2023-12-08 16:19 | HPS.HSE ---
Addendum entered and electronically signed by Malik Barton MD 12/08/23 16:23:
Gave bicarb oral tablet for metabolic acidosis from missed dialysis session.
Original Note:
Family Physician
-
Family Physician: Vinnie Barbosa
Chief Complaint
-
weakness, body aches
History of Present Illness
68-year-old male with past medical history of ESRD on hemodialysis, Friday, Friday, Friday, prior uremic encephalopathy, hypertension, diabetes, right BKA, PAD, CAD, paroxysmal atrial fibrillation, hypertension, anemia of chronic disease, lumbar
osteomyelitis/discitis of L2-L4, epidural abscess of L1 to sacrum status post laminectomy, MSSA bacteremia, psoas abscess, GERD, presenting from [facility] for increasing weakness and confusion in setting of COVID infection and missed dialysis.
Patient recently tested positive for COVID and has been having myalgias and fatigue. Last week he refused dialysis all 3 sessions but he was feeling too weak. As per retirement/dialysis session was 11/27. Today he continues to refuse dialysis
and has become increasingly confused. He denies chest pain or shortness of breath or cough. Denies fever. Denies abdominal pain or vomiting.
He smokes occasionally drinks alcohol occasionally.
Medical History
Past Medical History
Past Medical History: Reports Other (ESRD on hemodialysis, Friday, Friday, Friday, prior uremic encephalopathy, hypertension, diabetes, right BKA, PAD, CAD, paroxysmal atrial fibrillation, hypertension, anemia of chronic disease, lumbar
osteomyelitis/discitis of L2-L4, epidural abscess of L1 to sacrum status post laminectomy, MSSA b)
Past Surgical History: Reports None
Social History
Tobacco: Other
Alcohol: Occasional
Family History
Family History: Not pertinent
Allergies / Home Medications
Allergies reflects when Allergies were last updated in [facility].
Home Medications with original date entered in [facility]
Allergy/Medication List:
Allergies
Allergy/AdvReac Type Severity Reaction Status Date / Time
No Known Allergies Allergy Verified 12/08/23 14:19
Home Medications
acetaminophen 500 mg tablet 1,000 mg PO TID Pain 06/29/23
cholecalciferol (vitamin D3) 25 mcg (1,000 unit) tablet 25 mcg PO DAILY Supplement 06/29/23
lidocaine 4 % topical patch 1 patch topical DAILY right shoulder 06/29/23
famotidine 20 mg tablet 20 mg PO Q48H #0 tabs 07/26/23
pantoprazole 40 mg tablet,delayed release 40 mg PO BID #0 tabs 07/26/23
midodrine 2.5 mg tablet 2.5 mg PO Q8HPRN PRN sbp<100 08/22/23
apixaban 5 mg tablet (Eliquis) 5 mg PO BID #60 tabs 08/29/23
metoprolol succinate 50 mg tablet,extended release 24 hr 50 mg PO BID #60 tabs 08/29/23
sodium zirconium cyclosilicate 10 gram oral powder packet (Lokelma) 10 g PO MOWE Electrolyte Repletion 10/22/23
sodium zirconium cyclosilicate 5 gram oral powder packet (Lokelma) 5 g PO MOWE Electrolyte Repletion 10/22/23
aspirin 81 mg chewable tablet 81 mg PO DAILY Blood Clot Prevention/Tx 11/21/23
gabapentin 100 mg capsule 100 mg PO MOWEFR@0800 neuropathic pain 11/21/23
hydromorphone 4 mg tablet 4 mg PO Q8HPRN PRN severe pain 11/21/23
sennosides 8.6 mg-docusate sodium 50 mg tablet (Stool Softener-Laxative) 2 tab PO [id number] PRN constipation 11/21/23
Review of Systems
-
History Source: Patient
A 12 point ROS was completed and negative except as noted: Yes
Constitutional: Reports No Symptoms
EENT: Reports No Symptoms
Respiratory: Reports No Symptoms
Cardiac: Reports No Symptoms
Abdomen/GI: Reports No Symptoms
: Reports No Symptoms
Musculoskeletal: Reports See HPI
Skin: Reports No Symptoms
Neurological: Reports No Symptoms
Endocrine: Reports No Symptoms
Hematologic/Lymphatic: Reports No Symptoms
Psych: Reports No Symptoms
Physical Exam
Vital Signs
Vital Signs
Temp Pulse Resp BP Pulse Ox
97.8 F 72 18 150/70 99
12/08/23 14:19 12/08/23 14:19 12/08/23 14:19 12/08/23 14:19 12/08/23 14:19
Physical Exam
General: Well Developed, Well Nourished and No Apparent Distress
HEENT: NormoCephalic, Moist mucous membranes and Atraumatic
Respiratory: Clear
Cardiac: S1/S2 and Regular Rhythm; No Murmur or Rub
GI: Soft, Non Tender, Non Distended and Normal Bowel Sounds; No Organomegaly
Rectal: Deferred by Provider
Musculoskeletal: No Clubbing, No Cyanosis and No Edema
Skin: No Rash
Neuro: Nonfocal/grossly intact
Laboratory Results
-
12/08/23 14:33
12/08/23 14:33
Laboratory Results
Total Bilirubin 0.9 mg/dl (0.2-1.3) 12/08/23 14:33
AST 22 U/L (17-59) 12/08/23 14:33
ALT 10 U/L (0-50) 12/08/23 14:33
Alkaline Phosphatase 186 U/L (38-126) H 12/08/23 14:33
Data Reviewed
-
Lab Data: Labs Reviewed by me
Old Records: Reviewed
Impression/Plan
-
IMPRESSION:
PLAN:
# Encephalopathy secondary to uremia/COVID infection
-See individually below
#Uremic encephalopathy
# History of ESRD on hemodialysis Friday, Friday, Friday
-Last dialysis session on 11/27
-Nephrology consulted plan for dialysis tomorrow morning
-Continue Lokelma
# COVID infection
-Not hypoxic
PAD status post right lower extremity stent
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
Stump infection with open wound prior suture border 08/22/2023
Right BKA
-Continue aspirin
Paroxysmal atrial fibrillation
-Continue Eliquis
-Continue metoprolol
History of hypotension
-Continue midodrine
Anemia of chronic disease
Lumbar osteomyelitis/discitis of L2�3�4
Epidural abscess from L1 to sacrum postlaminectomy/26
History of psoas abscess
MSSA bacteremia
-Treated with Ancef
-Continue Dilaudid, gabapentin,
Essential hypertension
GERD
-Continue Protonix, Pepcid
Full code
DVT prophylaxis-Eliquis
Renal diet
[2023-12-08] MEDS: SODIUM BICARBONATE 650 MG PO (16:58)
--- NOTE | 2023-12-08 17:46 | PTCARENOTE ---
Recieved pt from ED, pt pulled over from stretcher to bed, VSS, dinner ordered, pt resting comfortably in bed at this time, call mullen within reach.
--- NOTE | 2023-12-08 18:05 | W.CON.NEPH ---
Consultation
-
Date/Time Consultation Requested: 12/08/23 1535
Date/Time Consultation Performed: 12/08/23 1800
Requesting Provider: Mika Mcpherson
Performing Provider: Shannon Zamudio
Reason for Consultation: ESRD
Medical History
-
Chief Complaint: Weakness, body aches
History of Present Illness:
68-year-old male from [facility] wioth PMH of HTN on BB and prn midodrine, PAD s/p right BKA, ESRD on MWF HD through right IJ HD catheter, chr hyperkalemia on Lokelma, P afib on eliquis, chronic right shoulder pain secondary to
prior rotator cuff repair 30 years ago with chronic pain on hydromorphone, gabapentin, lumbar osteomyelitis/discitis of L2-L4, epidural abscess of L1 to sacrum status post laminectomy, GERD who also has h/o non compliance of HDs sent from [place] for
increasing weakness, confusion with missing HDs and +ve COVID status.
Patient recently tested positive for COVID(1week) and has been having myalgias and fatigue. Last week he refused dialysis all 3 sessions but he was feeling too weak. As per [facility]/dialysis session was 11/27. Today he continues to refuse
dialysis and has become increasingly confused. c/o abdominal pain when examined. Poor historian, since he is confused and sleeping during visit. On RA.MOst of the history from the chart.
Past Medical History
Paroxysmal A-fib new onset 08/24/2023
Discitis
Diverticulosis
Hypertension
GERD
Depression
End-stage renal disease
Osteomyelitis
Peripheral vascular disease
Type 2 diabetes
C. difficile colitis
GI bleed
Past Medical History: Other
Past Surgical History: Other (laminectomy, Rt BKA)
Social History
Tobacco: Smoker (Currently smoking 3 cigarettes a day for the last 4 months prior 1 pack a day 54 years)
Alcohol: Occasional (Every other week prior to July 2023)
Drug: None
Personal: Single
Living: [facility]
Employment: Disabled
Family History
Mother and father reports history of CHF/DE mother age 64 father age 66 patient with 2 sisters healthy, 3 brothers with history of mental illness
Family History: Not Pertinent
Allergies / Home Medications
Allergy/AdvReac Type Severity Reaction Status Date / Time
No Known Allergies Allergy Verified 12/08/23 14:19
�Medication �Instructions �Recorded �Confirmed �Type
acetaminophen 500 mg tablet 1,000 mg PO TID Pain 06/29/23 12/08/23 History
cholecalciferol (vitamin D3) 25 25 mcg PO DAILY Supplement 06/29/23 12/08/23 History
mcg (1,000 unit) tablet
lidocaine 4 % topical patch 1 patch topical DAILY right 06/29/23 12/08/23 History
shoulder
famotidine 20 mg tablet 20 mg PO Q48H #0 tabs 07/26/23 12/08/23 Rx
pantoprazole 40 mg tablet,delayed 40 mg PO BID #0 tabs 07/26/23 12/08/23 Rx
release
midodrine 2.5 mg tablet 2.5 mg PO Q8HPRN PRN sbp<100 08/22/23 12/08/23 History
apixaban 5 mg tablet (Eliquis) 5 mg PO BID #60 tabs 08/29/23 12/08/23 Rx
metoprolol succinate 50 mg 50 mg PO BID #60 tabs 08/29/23 12/08/23 Rx
tablet,extended release 24 hr
sodium zirconium cyclosilicate 10 10 g PO MOWE Electrolyte Repletion 10/22/23 12/08/23 History
gram oral powder packet (Lokelma)
sodium zirconium cyclosilicate 5 5 g PO MOWE Electrolyte Repletion 10/22/23 12/08/23 History
gram oral powder packet (Lokelma)
aspirin 81 mg chewable tablet 81 mg PO DAILY Blood Clot 11/21/23 12/08/23 History
Prevention/Tx
gabapentin 100 mg capsule 100 mg PO MOWEFR@0800 neuropathic 11/21/23 12/08/23 History
pain
hydromorphone 4 mg tablet 4 mg PO Q8HPRN PRN severe pain 11/21/23 12/08/23 History
sennosides 8.6 mg-docusate sodium 2 tab PO [id number] PRN constipation 11/21/23 12/08/23 History
50 mg tablet (Stool
Softener-Laxative)
Review of Systems
-
unable to obtain, pt confused
Physical Exam
Vital Signs
Vital Signs
Temp Pulse Resp BP Pulse Ox
98.2 F 83 22 152/91 98
12/08/23 17:47 12/08/23 17:47 12/08/23 17:47 12/08/23 17:47 12/08/23 17:50
Lab Results
WBC 6.3 10^3/uL (4.8-10.8) 12/08/23 14:33
RBC 2.74 10^6/uL (4.70-6.10) L 12/08/23 14:33
Hgb 7.7 g/dL (13.0-18.0) L 12/08/23 14:33
Hct 23.4 % (39.0-52.0) L 12/08/23 14:33
Plt Count 445 10^3/uL (130-400) H 12/08/23 14:33
Sodium 135 mmol/L (135-145) 12/08/23 14:33
Potassium 5.1 mmol/L (3.5-5.1) 12/08/23 14:33
Chloride 102 mmol/L (98-107) 12/08/23 14:33
Carbon Dioxide 16 mmol/L (22-30) L 12/08/23 14:33
BUN 96 mg/dl (9-20) H 12/08/23 14:33
Creatinine 7.9 mg/dL (0.7-1.3) H* 12/08/23 14:33
eGFR 6.95 12/08/23 14:33
Glucose 114 mg/dl (70-99) H 12/08/23 14:33
Calcium 8.5 mg/dl (8.4-10.2) 12/08/23 14:33
Albumin 2.9 g/dl (3.5-5.0) L 12/08/23 14:33
CXR:
IMPRESSION:
Very mild pulmonary edema. No effusion.
Physical Exam
General: Awake, No Distress and Nontoxic
HEENT: EOMI, Anicteric and Facial Symmetry
Respiratory: Normal Excursion, Nonlabored Respirations and Other (decreased BS)
Cardiac: S1/S2 and Regular Rate/Rhythm
Breast: Deferred by me
Abdomen: Soft and Other (?mild TTP upper abd)
Musculoskeletal: Edema (left leg 1+, rt BKA stump -non healed incision -lookd dry with out drainage )
Skin: No Rash
Neuro: Nonfocal/Grossly Intact
Psych: Other (can not asess confused)
Vascular Access: CVC
Assessment/Plan
-
Impression:
Encephalopathy
COVID infection
Uremic encephalopathy
met acidosis
History of ESRD on hemodialysis Friday, Friday, Friday
PAD status post right lower extremity stent
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
Stump infection with open wound prior suture border 08/22/2023
Right BKA
Paroxysmal atrial fibrillation
History of hypotension
Anemia of chronic disease
Lumbar osteomyelitis/discitis of L2�3�4
Epidural abscess from L1 to sacrum postlaminectomy/26
History of psoas abscess
h/o MSSA bacteremia
Essential hypertension
GERD
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
Tunneled right IJ catheter
2D echo 08/26/2023: EF 50-55%, mild TR, small-moderate pericardial effusion,PASP 40 to 45 mmHg, mildly dilated aortic root 4.3 cm,
Plan:
A/w increasing gen weakness with COVID and missing HD, last HD 11/27
metabolic parameters noted no emergent HD indication today
plan HD tomorrow with midodrine
renal diet and FR
BP high could get better with UF, try tomorrow, resume meds
resume LOkelma non HD days
s/p po bicarb for met acidosis
follow h/h, prn transfusion
[2023-12-08] MEDS: PEPCID 20 MG PO (20:50)
[2023-12-08] MEDS: PROTONIX 40 MG PO (20:50)
[2023-12-08] MEDS: TOPROL XL 50 MG PO (20:50)
[2023-12-08] MEDS: ELIQUIS 5 MG PO (20:51)
[2023-12-08] MEDS: TYLENOL 1000 MG PO (20:59)
[2023-12-09] MEDS: DILAUDID 4 MG PO (00:13)
[2023-12-09 06:00] VITALS: BMI 25.2
[2023-12-09 07:36] VITALS: BP 161/87
[2023-12-09] MEDS: RETACRIT 10000 UNITS IV (08:54)
[2023-12-09 09:00] LABS: Hematocrit 22.5 % (39.0-52.0); Hemoglobin 7.5 g/dL (13.0-18.0); Mean Corp Hgb Conc. 33.3 g/dL (33.0-37.0); Mean Corpuscular Hgb 28.8 pg (27.0-31.0); Mean Corpuscular Volume 86.5 fL (80.0-94.0); Mean Platelet Volume 8.6 fL (7.4-10.4); Platelet Count 433 10^3/uL (130-400); Red Cell Dist. Width 17.1 % (11.5-14.5); White Blood Cell Count 7.2 10^3/uL (4.8-10.8)
[2023-12-09 09:34] LABS: ALT (SGPT) 11 U/L (0-50); AST (SGOT) 20 U/L (17-59); Albumin 3.1 g/dl (3.5-5.0); Alkaline Phosphatase 181 U/L (38-126); Blood Urea Nitrogen 97 mg/dl (9-20); Calcium 8.7 mg/dl (8.4-10.2); Carbon Dioxide 14 mmol/L (22-30); Chloride 102 mmol/L (98-107); Estimated Creatinine Clearance 11 ml/min; Glucose 86 mg/dl (70-99); Potassium 4.6 mmol/L (3.5-5.1); Sodium 136 mmol/L (135-145); Total Bilirubin 0.9 mg/dl (0.2-1.3); Total Protein 6.5 g/dl (6.3-8.2); eGFR 6.85
--- NOTE | 2023-12-09 09:50 | W.PN.NEPH.HD ---
Assessment
-
pt seen during HD
vitals are stable
UF as tolerates
still makes urine
HD tomorrow
CVC functions well
Progress Note - Hemodialysis
-
Date of Service: December 09, 2023
Duration: 30 minutes and 3 hours
Potassium Bath: 2
Calcium Bath: 2.5
Opti-Dialyzer: 160
Ultrafiltration: Other (2-2.5kg)
Blood Flow: 400
Dialysate Flow: 600
Heparin: no
EPO: [id number]
--- NOTE | 2023-12-09 10:27 | PTCARENOTE ---
BP this AM was 161/87. Instructed to hold 2.5mg midodrine before HD. HD RN aware.
--- NOTE | 2023-12-09 11:49 | W.PN.HOSP.TC ---
Today's Communication/Plan
-
nephrology consult
follow mental status
on HD
Assessment / Plan
Assessment / Plan
Imaging
CXR
IMPRESSION:
Very mild pulmonary edema. No effusion.
Physical Exam
NAD, resting comfortably in bed
Scleral anicteric
Moist mucous membranes
No JVD
CTA bilateral
Normal S1-S2 no murmurs
Soft nontender nondistended bowel sounds active
[facility] CDI
No peripheral pitting edema, RLE BKA
Moves extremities spontaneously
AAOx3
Assessment and Plan
COVID +
-Does not require o2 therfore no indication for steroid or antivirals
-Maintain Iso precautions
TME - likley Uremic, less likely Covid induced, seems to be improving as he is AAOx3, easily agitated though an does not like to answer questions
-Currently on HD via [facility]
-If there is not an improvement in mental status then would check reversible work up
ESRD on HD, Missed 3 HD sessions last week
-Nephrology following
-Bedside HD
-Monitor UOP as he is oligoric
Hypotension
-Chronic Mido, continue
P AFib
-Continue BB and AC
PAD s/p stent further needing right BKA
-Continue asa
-Wound regimen per longterm record wash with normal saline, pat dry, apply silver alginate and foam dressing
-Consult wound care
Anemia of chronic disease with likely component of Anemia of KD
-May need EPO/Procrit, appreciate Neph rec
-Goal Hgb 10-11
-No indication for transfuse
-Transfuse <7
CAD
-Continue ASA/Eliquis
Anticipated Discharge: 24 - 48 hours
Subjective/Interval History
-
Date of Service: December 09, 2023
Seen and examined. No new complaints. No acute overnight events.
States that he feels weak
Does not want to answer questions becoming upset when asked
Objective Data
-
Labs:
Laboratory Results
12/09/23
08:46
WBC 7.2
Hgb 7.5 L
Hct 22.5 L
Plt Count 433 H
Sodium 136
Potassium 4.6
Chloride 102
Carbon Dioxide 14 L*
BUN 97 H
Creatinine 8.0 H*
Glucose 86
Calcium 8.7
Total Bilirubin 0.9
AST 20
ALT 11
Alkaline Phosphatase 181 H
Vital Signs:
Vital Signs
Temp Pulse Resp BP Pulse Ox
98.5 F 88 18 161/87 99
12/09/23 07:36 12/09/23 08:22 12/09/23 07:36 12/09/23 08:22 12/09/23 10:49
I&O
12/08/23 12/09/23 12/10/23
06:59 06:59 06:59
Intake Total 480 / 480
Output Total 675 / 675
Balance -195 / -195
--- NOTE | 2023-12-09 12:15 | PTCARENOTE ---
1500 FR added to 2gNa diet per MD order.
[2023-12-09] MEDS: ELIQUIS 5 MG PO (13:32)
[2023-12-09] MEDS: VITAMIN D3 (cholecalciferol) 25 MCG PO (13:32)
[2023-12-09] MEDS: TYLENOL 1000 MG PO ×2 (13:32→21:12)
[2023-12-09] MEDS: TOPROL XL 50 MG PO ×2 (13:32→20:10)
[2023-12-09] MEDS: PROTONIX 40 MG PO ×2 (13:33→20:10)
[2023-12-09] MEDS: LOW STRENGTH ASPIRIN 81 MG PO (13:33)
--- NOTE | 2023-12-09 14:44 | PTCARENOTE ---
Meds given late due to HD. This RN found pt to be calling out for help, instructed to use call mullen. Medsitter placed for safety. Pt changed, seemingly more comfortable and calm now.
[2023-12-09 15:30] VITALS: BP 158/86
--- NOTE | 2023-12-09 15:34 | CM ---
Patient LTC at [facility] with bed hold.
Spoke with Amy stock.
IA completed. Resident at [facility] LTC
Dx: encephalopathy, COVID +
PMH: ESRD on HD (M-W-F), HTN, diabetes, R BKA, PAD, CAD
PCP: Vinnie Barbosa
Pharmacy: [facility]
PLAN: Return to [facility]
for report [phone], fax [phone].
[2023-12-09] MEDS: TYLENOL PO (16:23)
--- NOTE | 2023-12-09 16:30 | PTCARENOTE ---
Pts BP with 1500 vitals was 158/86. MD made aware, no new orders at this time.
[2023-12-09] MEDS: ELIQUIS PO ×2 (20:10→20:15)
[2023-12-09 23:20] VITALS: BP 149/88
--- NOTE | 2023-12-10 01:11 | PTCARENOTE ---
Pt aaox3, refused Eliquis at bedtime despite education provided. Pt verbalized understanding of medication purpose, however refused to take anyway d/t scant amount of blood from ' picking his nose' earlier on shift. manager pricing [employer] made aware of
refusal.
[2023-12-10 05:26] VITALS: BMI 25.0
[2023-12-10 07:29] VITALS: BP 152/91
[2023-12-10] MEDS: NEURONTIN 100 MG PO (08:02)
[2023-12-10] MEDS: TOPROL XL 50 MG PO ×2 (08:02→19:39)
[2023-12-10] MEDS: TYLENOL 1000 MG PO ×3 (08:02→22:06)
[2023-12-10] MEDS: VITAMIN D3 (cholecalciferol) 25 MCG PO (08:03)
[2023-12-10] MEDS: LOW STRENGTH ASPIRIN 81 MG PO (08:03)
[2023-12-10] MEDS: ELIQUIS 5 MG PO ×2 (08:03→19:39)
[2023-12-10] MEDS: PROTONIX 40 MG PO ×2 (08:03→19:39)
--- NOTE | 2023-12-10 09:34 | WOUNDNOTE ---
MARZENA RN note: Patient admitted with acute uremia and COVID 19.
See H&P for complete history.
PMH: Laminectomy, osteomyelitis- R BKA with I&D of R BKA by vascular on 08/29/23, HTN, smoker, RF-dialysis, alcohol abuse and metabolic encephalopathy.
Wound Location and type/assessment: Patient known to service, last seen 11/24/23 for same R BKA surgical site. Now admitted with: healing surgical site ulcer on R BKA, less necrotic and dry compared to last seen. NH currently using silver alginate
and silicone foam. L heel intact blanchable red. Sacrum intact L buttock with stage 2 vs stage 3 PI. Patient refusing offloading air chair cushion. Patient can turn self to sides, received sitting at side of bed.
Appetite: Good.
Pressure redistribution devices in place: Accumax, turns self. Refusing offloading cushion and air overlay.
Plan: Will order Santyl to R BKA and dry dressing, mineral oil for dry skin on legs daily. Silicone foam applied to buttock ulcer and adhesive foam to L heel. pressure ulcer prevention measures reviewed with patient and encouraged to turn, patient
nodded head that he understands, still refusing to use air cushion, asked to remove under sacrum. Repositioned in bed and call mullen given. Will confirm orders with hospitalist and update nurse Moran. Asked RN to add Santyl under dressing when able.
Updated care plan and will follow as needed.
Note to case management of equipment requested for discharge: None.
Recommend follow up at wound care center upon discharge.
--- NOTE | 2023-12-10 12:06 | W.PN.HOSP.TC ---
Addendum entered and electronically signed by Devin Wray MD 12/10/23 18:18:
DC cancelled.
Awaiting brain mri and left shoulder xray
Left buttock stage 3 pressure injury, on arrival
Original Note:
Today's Communication/Plan
-
For HD today. If tolerates plan to DC back to [place].
More than 30 minutes spent in discharge including
Final examination of the patient
Summarizing hospital stay
Instructions for continuing care to all relevant caregivers
Preparation of discharge records, prescriptions, and referral forms
Total time spent (in minutes): 31min
Assessment / Plan
Assessment / Plan
Imaging
CXR
IMPRESSION:
Very mild pulmonary edema. No effusion.
Physical Exam
NAD, resting comfortably in bed
Scleral anicteric
Moist mucous membranes
No JVD
CTA bilateral
Normal S1-S2 no murmurs
Soft nontender nondistended bowel sounds active
[facility] CDI
No peripheral pitting edema, RLE BKA
Moves extremities spontaneously
AAOx3
Assessment and Plan
COVID +
-Does not require o2 therfore no indication for steroid or antivirals
-Maintain Iso precautions
TME - likley Uremic, less likely Covid induced, seems to be improving as he is AAOx3, easily agitated though an does not like to answer questions
-Currently on HD via [facility]
-Seems to have resolved. Does continue to complain of fatigue and weakness which is expected from Covid
ESRD on HD, Missed 3 HD sessions last week
-Nephrology following
-Bedside HD
-Monitor UOP as he is oligoric
Hypotension
-Chronic Mido, continue
P AFib
-Continue BB and AC
PAD s/p stent further needing right BKA
-Continue asa
-Wound regimen per correction record wash with normal saline, pat dry, apply silver alginate and foam dressing
-Consult wound care
Anemia of chronic disease with likely component of Anemia of KD
-May need EPO/Procrit, appreciate Neph rec
-Goal Hgb 10-11
-No indication for transfuse
-Transfuse <7
CAD
-Continue ASA/Eliquis
I spoke with his Sister Jayde telephone #[phone]. She states that she saw him between 7:30 PM and 8:15 PM yesterday. States initially thought he was back to baseline however started thinking that he was at [facility] was becoming easily
agitated complaining about left-sided shoulder pain and then started having a bloody nose. She also tells me while [place] he has fallen multiple times at least 3 that she knows about.
-Will check left shoulder x-ray
-Will check brain MRI to rule out CVA
Anticipated Discharge: Today
Subjective/Interval History
-
Date of Service: December 10, 2023
seen and exmained. no new compalitns. no acute ovenrigt events
Continues to have fatigue and myalgias
Asked me not to press on his lower abdomen as he had to urinate
Objective Data
-
Vital Signs:
Vital Signs
Temp Pulse Resp BP Pulse Ox
98.8 F 86 18 152/91 99
12/10/23 07:29 12/10/23 07:29 12/10/23 07:29 12/10/23 07:29 12/10/23 07:29
I&O
12/09/23 12/10/23 12/11/23
06:59 06:59 06:59
Intake Total 480 / 480 1150 / 1150
Output Total 675 / 675 985 / 985
Balance -195 / -195 165 / 165
[2023-12-10] MEDS: ProAmatine 2.5 MG PO (12:38)
--- NOTE | 2023-12-10 12:44 | W.PN.NEPH.HD ---
Assessment
-
Patient for dialysis
2 kg ultrafiltrate as hemodynamically tolerated
Progress Note - Hemodialysis
-
Date of Service: December 10, 2023
Duration: 30 minutes and 3 hours
Potassium Bath: 2
Calcium Bath: 2.5
Opti-Dialyzer: 160
Ultrafiltration: Other (2kg)
Blood Flow: 400
Dialysate Flow: 600
Heparin: none
EPO: 10K
--- NOTE | 2023-12-10 13:01 | PN.CDI ---
CDI
- -
CDI:
Physician Documentation Request
Admit Date: 12/08/23 16:37
Dear Doctor Nils,
Please review the following and provide your response in the progress notes.
Clinical Indicators:
12/07 Pt admitted with TME, likely uremic.
12/09 WOC RN note: 'Sacrum intact L buttock with stage 2 vs stage 3 PI.'
Physician documentation of the type and location of wounds is required for compliant documentation. Based on the above clinical findings and your assessment, please provide the following in your progress note:
Left buttock stage 2 pressure injury
Left buttock stage 3 pressure injury
Left buttock non-pressure wound
Other
Please document if you suspect whether of not injury was POA
Use of terms such as suspected, likely, concern for, or probable (associated with a specific diagnosis that is being evaluated, monitored, or treated as if it exists) are acceptable and can be coded in the inpatient setting, when documented at the
time of discharge.
Thank you,
Trsih Forman RN, BSN
CDI Specialist
Available via [place] Text
Please use your independent medical judgment in providing your response.
*Source: National Pressure Ulcer Advisory Panel (NPUAP)
[2023-12-10 13:06] LABS: Hematocrit 22.4 % (39.0-52.0); Hemoglobin 7.2 g/dL (13.0-18.0); Mean Corp Hgb Conc. 32.1 g/dL (33.0-37.0); Mean Corpuscular Hgb 27.5 pg (27.0-31.0); Mean Corpuscular Volume 85.5 fL (80.0-94.0); Mean Platelet Volume 8.6 fL (7.4-10.4); Platelet Count 383 10^3/uL (130-400); Red Blood Cell Count 2.62 10^6/uL (4.70-6.10); White Blood Cell Count 5.4 10^3/uL (4.8-10.8)
[2023-12-10 13:24] LABS: Blood Urea Nitrogen 55 mg/dl (9-20); Calcium 8.7 mg/dl (8.4-10.2); Carbon Dioxide 21 mmol/L (22-30); Chloride 101 mmol/L (98-107); Estimated Creatinine Clearance 15 ml/min; Glucose 187 mg/dl (70-99); Iron 27 ug/dl (49-181); Potassium 3.8 mmol/L (3.5-5.1); Sodium 136 mmol/L (135-145); eGFR 10.73
[2023-12-10 13:35] LABS: Percent Saturation 13 % (20-50); Total Iron Binding Capacity 197 ug/dl (261-462)
[2023-12-10] MEDS: RETACRIT 10000 UNITS IV (14:02)
[2023-12-10] MEDS: SANTYL OINTMENT 1 APPLIC TOPICAL (14:50)
[2023-12-10 15:25] VITALS: BP 155/92
--- NOTE | 2023-12-10 16:03 | CM ---
Patient to return to [facility] when stable, ESRD on HD at [facility].
Plan; Patient to return to [facility]
Report [phone]
.
[2023-12-10] MEDS: DILAUDID 4 MG PO (16:45)
[2023-12-10] MEDS: PEPCID 20 MG PO (16:54)
[2023-12-10 23:47] VITALS: BP 133/66
[2023-12-11 05:57] VITALS: BMI 23.9
[2023-12-11 06:46] LABS: Hematocrit 24.3 % (39.0-52.0); Mean Corp Hgb Conc. 32.9 g/dL (33.0-37.0); Mean Corpuscular Hgb 28.8 pg (27.0-31.0); Mean Corpuscular Volume 87.4 fL (80.0-94.0); Mean Platelet Volume 8.9 fL (7.4-10.4); Platelet Count 362 10^3/uL (130-400); Red Blood Cell Count 2.78 10^6/uL (4.70-6.10); Red Cell Dist. Width 16.9 % (11.5-14.5); White Blood Cell Count 5.2 10^3/uL (4.8-10.8)
[2023-12-11 07:15] LABS: Blood Urea Nitrogen 31 mg/dl (9-20); Calcium 8.3 mg/dl (8.4-10.2); Carbon Dioxide 24 mmol/L (22-30); Chloride 96 mmol/L (98-107); Estimated Creatinine Clearance 26 ml/min; Glucose 89 mg/dl (70-99); Potassium 4.1 mmol/L (3.5-5.1); Sodium 136 mmol/L (135-145); eGFR 19.81
[2023-12-11 07:47] VITALS: BP 156/93
--- NOTE | 2023-12-11 08:16 | PTCARENOTE ---
Pts BP is 156/93 this AM, made aware, no new orders at this time.
[2023-12-11] MEDS: PROTONIX 40 MG PO ×2 (08:51→19:36)
[2023-12-11] MEDS: LOW STRENGTH ASPIRIN 81 MG PO (08:51)
[2023-12-11] MEDS: TOPROL XL 50 MG PO ×2 (08:51→19:36)
[2023-12-11] MEDS: VITAMIN D3 (cholecalciferol) 25 MCG PO (08:51)
[2023-12-11] MEDS: TYLENOL 1000 MG PO ×3 (08:51→20:59)
[2023-12-11] MEDS: SANTYL OINTMENT 1 APPLIC TOPICAL (08:52)
[2023-12-11] MEDS: HYDROPHOR 1 APPLIC TOPICAL (08:52)
[2023-12-11] MEDS: ELIQUIS 5 MG PO ×2 (08:52→19:36)
--- NOTE | 2023-12-11 11:41 | CM ---
Addendum entered by Charu Alejandra 12/11/23 11:57:
[facility]
REPORT #: [phone]
FAX #: [phone]
IMM explained to Jayde (sister) and verbalize understanding. In chart
Original Note:
Patient had MRI today.
tt from hospitalist tentative d/c today pending results of MRI
[facility]my liaison notified.
Transportation forms on chart
PLAN: [place]
Ambulance forms on chart. Time TBD
--- NOTE | 2023-12-11 12:00 | PTCARENOTE ---
Medsitter removed from pts room. Bed alarm in place, pt ringing call mullen appropriately. Bed locked in lowest position, call mullen within reach.
--- NOTE | 2023-12-11 13:27 | W.PN.HOSP.TC ---
Today's Communication/Plan
-
MRI pending
Assessment / Plan
Assessment / Plan
Imaging
CXR
IMPRESSION:
Very mild pulmonary edema. No effusion.
Left shoulder xray
IMPRESSION:
No acute osseous abnormality.
Mild degenerative changes of the shoulder.
Physical Exam
NAD, resting comfortably in bed
Scleral anicteric
Moist mucous membranes
No JVD
CTA bilateral
Normal S1-S2 no murmurs
Soft nontender nondistended bowel sounds active
[facility] CDI
No peripheral pitting edema, RLE BKA
Moves extremities spontaneously
AAOx3
Assessment and Plan
COVID +
-Does not require o2 therefore no indication for steroid or antivirals
-Maintain Iso precautions
TME - likley Uremic, less likely Covid induced, seems to be improving as he is AAOx3, easily agitated though an does not like to answer questions
-Currently on HD via [facility]
-Seems to have resolved. Does continue to complain of fatigue and weakness which is expected from Covid
ESRD on HD, Missed 3 HD sessions last week
-Nephrology following
-Bedside HD
-Monitor UOP as he is oligoric
Hypotension
-Chronic Mido, continue
P AFib
-Continue BB and AC
PAD s/p stent further needing right BKA
-Continue asa
-Wound regimen per long term record wash with normal saline, pat dry, apply silver alginate and foam dressing
-Consult wound care
Anemia of chronic disease with likely component of Anemia of KD
-May need EPO/Procrit, appreciate Neph rec
-Goal Hgb 10-11
-No indication for transfuse
-Transfuse <7
CAD
-Continue ASA/Eliquis
I spoke with his Sister Jayde telephone #[phone]. She states that she saw him between 7:30 PM and 8:15 PM yesterday. States initially thought he was back to baseline however started thinking that he was at [place] was becoming easily
agitated complaining about left-sided shoulder pain and then started having a bloody nose. She also tells me while [place] he has fallen multiple times at least 3 that she knows about.
-Left shoulder x-ray: IMPRESSION: No acute osseous abnormality. Mild degenerative changes of the shoulder.
-Will check brain MRI to rule out CVA
Anticipated Discharge: Within 24 hours
Subjective/Interval History
-
Date of Service: December 11, 2023
seen and examined. no new complaints. no acute ovenright events
Objective Data
-
Labs:
Laboratory Results
12/11/23
05:41
WBC 5.2
Hgb 8.0 L
Hct 24.3 L
Plt Count 362
Sodium 136
Potassium 4.1
Chloride 96 L
Carbon Dioxide 24
BUN 31 H
Creatinine 3.3 H
Glucose 89
Calcium 8.3 L
Vital Signs:
Vital Signs
Temp Pulse Resp BP Pulse Ox
98.2 F 78 16 156/93 100
12/11/23 07:47 12/11/23 08:51 12/11/23 07:47 12/11/23 08:51 12/11/23 09:03
I&O
12/10/23 12/11/23 12/12/23
06:59 06:59 06:59
Intake Total 1150 / 1150 480 / 480
Output Total 985 / 985 500 / 500
Balance 165 / 165 -20 / -20
--- NOTE | 2023-12-11 13:46 | W.PN.NEPH.PH ---
Today's Communication / Plan
-
Dialysis tomorrow
Assessment/Plan
-
Impression:
Encephalopathy
COVID infection
Uremic encephalopathy
met acidosis
History of ESRD on hemodialysis Friday, Friday, Friday
PAD status post right lower extremity stent
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
Stump infection with open wound prior suture border 08/22/2023
Right BKA
Paroxysmal atrial fibrillation
History of hypotension
Anemia of chronic disease
Lumbar osteomyelitis/discitis of L2�3�4
Epidural abscess from L1 to sacrum postlaminectomy/26
History of psoas abscess
h/o MSSA bacteremia
Essential hypertension
GERD
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
Tunneled right IJ catheter
2D echo 08/26/2023: EF 50-55%, mild TR, small-moderate pericardial effusion,PASP 40 to 45 mmHg, mildly dilated aortic root 4.3 cm,
Plan:
A/w increasing gen weakness with COVID and missing HD, last HD 11/27
Dialysis tomorrow orders provided
plan HD tomorrow with midodrine support for UF
renal diet and FR
BP high could get better with UF, try tomorrow, resume meds
resume Lokelma non HD days at discharge
s/p po bicarb for met acidosis at discharge
follow h/h, prn transfusion
For MRI of head the day RE: continued confusion
-
-
Date of Service: December 11, 2023
CC / HPI / ROS
-
Chief Complaint:
End-stage renal disease
History of Present Illness:
ESRD Friday
Hemodynamically stable
Remains anemic but stable
Review of Systems:
Reported intermittent confusion
No fevers
Labs
-
Labs:
WBC 5.2 10^3/uL (4.8-10.8) 12/11/23 05:41
RBC 2.78 10^6/uL (4.70-6.10) L 12/11/23 05:41
Hgb 8.0 g/dL (13.0-18.0) L 12/11/23 05:41
Hct 24.3 % (39.0-52.0) L 12/11/23 05:41
Plt Count 362 10^3/uL (130-400) 12/11/23 05:41
Sodium 136 mmol/L (135-145) 12/11/23 05:41
Potassium 4.1 mmol/L (3.5-5.1) 12/11/23 05:41
Chloride 96 mmol/L (98-107) L 12/11/23 05:41
Carbon Dioxide 24 mmol/L (22-30) 12/11/23 05:41
BUN 31 mg/dl (9-20) H 12/11/23 05:41
Creatinine 3.3 mg/dL (0.7-1.3) H 12/11/23 05:41
eGFR 19.81 12/11/23 05:41
Glucose 89 mg/dl (70-99) 12/11/23 05:41
Calcium 8.3 mg/dl (8.4-10.2) L 12/11/23 05:41
Albumin 3.1 g/dl (3.5-5.0) L 12/09/23 08:46
Physical Exam
-
Vital Signs:
Vital Signs
Temp Pulse Resp BP Pulse Ox
98.2 F 78 16 156/93 100
12/11/23 07:47 12/11/23 08:51 12/11/23 07:47 12/11/23 08:51 12/11/23 09:03
Cardiovascular:: Regular rate and rhythm
Other Findings::
Rt BKA stump with non healed incision wound
[2023-12-11 14:54] VITALS: BP 151/85
[2023-12-11 19:30] LABS: Hepatitis B Surface Antigen Negative (Negative)
[2023-12-11 19:48] LABS: Hepatitis B Surface Antibody Negative
[2023-12-11 23:20] VITALS: BP 147/92
[2023-12-12 06:00] VITALS: BMI 24.2
[2023-12-12 07:57] VITALS: BP 165/103
[2023-12-12] MEDS: NEURONTIN 100 MG PO (08:46)
[2023-12-12] MEDS: TOPROL XL 50 MG PO (08:46)
[2023-12-12] MEDS: ELIQUIS 5 MG PO (08:47)
[2023-12-12] MEDS: TYLENOL 1000 MG PO ×2 (08:47→16:45)
[2023-12-12] MEDS: VITAMIN D3 (cholecalciferol) 25 MCG PO (08:47)
[2023-12-12] MEDS: PROTONIX 40 MG PO (08:47)
[2023-12-12] MEDS: LOW STRENGTH ASPIRIN 81 MG PO (08:47)
[2023-12-12] MEDS: HYDROPHOR 1 APPLIC TOPICAL (08:48)
[2023-12-12] MEDS: SANTYL OINTMENT 1 APPLIC TOPICAL (08:48)
--- NOTE | 2023-12-12 12:51 | W.PN.HOSP.TC ---
Today's Communication/Plan
-
dc after hd
More than 30 minutes spent in discharge including
Final examination of the patient
Summarizing hospital stay
Instructions for continuing care to all relevant caregivers
Preparation of discharge records, prescriptions, and referral forms
Total time spent (in minutes): 32mins
Assessment / Plan
Assessment / Plan
Imaging
CXR
IMPRESSION:
Very mild pulmonary edema. No effusion.
Left shoulder xray
IMPRESSION:
No acute osseous abnormality.
Mild degenerative changes of the shoulder.
Brain MRI
IMPRESSION:
No acute intracranial abnormality noted.
Mild atrophy with sequelae of minimal small vessel ischemic disease.
Small right mastoid effusion.
Physical Exam
NAD, resting comfortably in bed
Scleral anicteric
Moist mucous membranes
No JVD
CTA bilateral
Normal S1-S2 no murmurs
Soft nontender nondistended bowel sounds active
[facility] CDI
No peripheral pitting edema, RLE BKA
Moves extremities spontaneously
AAOx3
Assessment and Plan
COVID +
-Does not require o2 therefore no indication for steroid or antivirals
-Maintain Iso precautions
TME - likley Uremic, less likely Covid induced, seems to be improving as he is AAOx3, easily agitated though an does not like to answer questions
-Currently on HD via [facility]
-Seems to have resolved. Does continue to complain of fatigue and weakness which is expected from Covid
ESRD on HD, Missed 3 HD sessions last week
-Nephrology following
-Bedside HD
-Monitor UOP as he is oligoric
Hypotension
-Chronic Mido, continue
P AFib
-Continue BB and AC
PAD s/p stent further needing right BKA
-Continue asa
-Wound regimen per [facility] record wash with normal saline, pat dry, apply silver alginate and foam dressing
-Consult wound care
Anemia of chronic disease with likely component of Anemia of KD
-May need EPO/Procrit, appreciate Neph rec
-Goal Hgb 10-11
-No indication for transfuse
-Transfuse <7
CAD
-Continue ASA/Eliquis
I spoke with his Sister Jayde telephone #[phone]. She states that she saw him between 7:30 PM and 8:15 PM yesterday. States initially thought he was back to baseline however started thinking that he was at [place] was becoming easily
agitated complaining about left-sided shoulder pain and then started having a bloody nose. She also tells me while [place] he has fallen multiple times at least 3 that she knows about.
-Left shoulder x-ray: IMPRESSION: No acute osseous abnormality. Mild degenerative changes of the shoulder.
-Will check brain MRI to rule out CVA
Anticipated Discharge: Today
Subjective/Interval History
-
Date of Service: December 12, 2023
seen and examined. no new compalints. no acute overnight events
feeling better
sister - jayde updated
Objective Data
-
Vital Signs:
Vital Signs
Temp Pulse Resp BP Pulse Ox
99.3 F 101 16 165/103 97
12/12/23 07:57 12/12/23 07:57 12/12/23 07:57 12/12/23 07:57 12/12/23 08:57
I&O
12/11/23 12/12/23 12/13/23
06:59 06:59 06:59
Intake Total 480 / 480 700 / 700
Output Total 500 / 500 375 / 375
Balance -20 / -20 325 / 325
--- NOTE | 2023-12-12 12:55 | W.DCSUMMARY ---
Discharge Summary
Discharge Data
Date of Admission: 12/08/23
Date of Discharge: 12/12/23
-
Pending Results: No
Hospital Course
68M Hx of end-stage renal disease dialysis Friday with dialysis catheter right upper chest wall, DM2, HTN, GERD, PAD, hypotension on chronic midodrine , PAD status post right lower extremity stenting, lumbar osteomyelitis, psoas
abscess, chronic indwelling Mccloud catheter, chronic right heel wound/right stump prior infection underwent amputation 08/07/2023 right BKA, diverticulosis, C. difficile colitis, GI bleed, diverticulosis discitis, paroxysmal A-fib presented confused
secondary to missing 3 hemodialysis sessions additionally also has COVID however not hypoxemic nor symptomatic from this. Therefore received multiple sessions of hemodialysis by nephrology. Discussed with sister who had stated that there was left
shoulder pain x-ray completed without acute changes. See below report. Additionally MRI brain obtained. See report below.
Brain MRI
IMPRESSION:
No acute intracranial abnormality noted.
Mild atrophy with sequelae of minimal small vessel ischemic disease.
Small right mastoid effusion.
Shoulder xray
IMPRESSION:
No acute osseous abnormality.
Mild degenerative changes of the shoulder.
CXR
IMPRESSION:
Very mild pulmonary edema. No effusion.
Wound Care Instructions
R BKA: clean with saline, Santyl to slough, adaptic and dry dressing daily
moisturize both legs with mineral oil.
L buttock/sacrum: clean with soap and water, silicone foam change q 2-3 days and prn soilage.
Air cushion or equivalent when sitting
increase protein in diet.
Discharge Plan
-
Patient Disposition: Group Home/SNF
Discharge Diagnosis/Procedures: ESRD
Covid +
Hx of end-stage renal disease dialysis Friday with dialysis catheter right upper chest wall, DM2, HTN, GERD, PAD, hypotension on chronic midodrine , PAD status post right lower extremity stenting, lumbar osteomyelitis, psoas
abscess, chronic indwelling Mccloud catheter, chronic right heel wound/right stump prior infection underwent amputation 08/07/2023 right BKA, diverticulosis, C. difficile colitis, GI bleed, diverticulosis discitis, paroxysmal A-fib
Condition: Fair
Diet: As tolerated
Activity: As tolerated
Activity Restrictions/Additional Instructions:
Presented confused secondary to missing 3 hemodialysis sessions additionally also has COVID however not hypoxemic nor symptomatic from this. Therefore received multiple sessions of hemodialysis by nephrology. Discussed with sister who had stated
that there was left shoulder pain x-ray completed without acute changes. See below report. Additionally MRI brain obtained. See report below.
Brain MRI
IMPRESSION:
No acute intracranial abnormality noted.
Mild atrophy with sequelae of minimal small vessel ischemic disease.
Small right mastoid effusion.
Shoulder xray
IMPRESSION:
No acute osseous abnormality.
Mild degenerative changes of the shoulder.
CXR
IMPRESSION:
Very mild pulmonary edema. No effusion.
Wound Care Instructions
R BKA: clean with saline, Santyl to slough, adaptic and dry dressing daily
moisturize both legs with mineral oil.
L buttock/sacrum: clean with soap and water, silicone foam change q 2-3 days and prn soilage.
Air cushion or equivalent when sitting
increase protein in diet.
Referrals:
Vinnie Barbosa MD [Family Provider] -
Prescriptions:
Continued
lidocaine 4 % Adhesive Patch,Medicated
1 patch TOPICAL DAILY
acetaminophen 500 mg Tablet
1,000 mg PO TID
cholecalciferol (vitamin D3) 25 mcg (1,000 unit) Tablet
25 mcg PO DAILY
famotidine 20 mg Tablet
20 mg PO Q48H Qty: 0 0RF
pantoprazole 40 mg Tablet,Delayed Release (Dr/Ec)
40 mg PO BID Qty: 0 0RF
midodrine 2.5 mg Tablet
2.5 mg PO Q8HPRN PRN (Reason: sbp<100)
Eliquis 5 mg Tablet
5 mg PO BID Qty: 60 0RF
metoprolol succinate 50 mg Tablet Extended Release 24 Hr
50 mg PO BID Qty: 60 0RF
Lokelma 5 gram Powder In Packet
5 g PO MOWE
Lokelma 10 gram Powder In Packet
10 g PO MOWE
aspirin 81 mg Tablet,Chewable
81 mg PO DAILY
sennosides-docusate sodium [Stool Softener-Laxative] 8.6-50 mg tablet
2 tab PO [id number] PRN (Reason: constipation)
gabapentin 100 mg capsule
100 mg PO MOWEFR@0800
hydromorphone 4 mg tablet
4 mg PO Q8HPRN PRN (Reason: severe pain)
Discharge Orders:
Discharge Patient (As Directed); Ordered 12/12/23
Ordered By: Devin Wray
Discharge Date and Time
Print Language: CHINESE
[2023-12-12 13:34] LABS: Hematocrit 22.1 % (39.0-52.0); Hemoglobin 7.1 g/dL (13.0-18.0); Mean Corp Hgb Conc. 32.1 g/dL (33.0-37.0); Mean Corpuscular Hgb 27.7 pg (27.0-31.0); Mean Corpuscular Volume 86.3 fL (80.0-94.0); Mean Platelet Volume 9.5 fL (7.4-10.4); Platelet Count 330 10^3/uL (130-400); Red Blood Cell Count 2.56 10^6/uL (4.70-6.10); Red Cell Dist. Width 16.7 % (11.5-14.5); White Blood Cell Count 5.3 10^3/uL (4.8-10.8)
[2023-12-12 13:59] LABS: Blood Urea Nitrogen 46 mg/dl (9-20); Calcium 8.1 mg/dl (8.4-10.2); Carbon Dioxide 20 mmol/L (22-30); Chloride 98 mmol/L (98-107); Estimated Creatinine Clearance 18 ml/min; Glucose 90 mg/dl (70-99); Potassium 3.6 mmol/L (3.5-5.1); Sodium 134 mmol/L (135-145)
--- NOTE | 2023-12-12 14:03 | CM ---
Addendum entered by Charu Alejandra 12/12/23 15:17:
Patient time changed for transport to 1900 as patient having dialysis.
[facility] liaison notified.
Original Note:
Patient to return to [facility] today
Notified Amy liaison patient will be returning at 1630.
Ambulance forms on chart.
PLAN: Discharge today to [facility]
Transportation via ambulance at 1630
[facility]
REPORT #: [phone]
FAX #: [phone]
[2023-12-12] MEDS: RETACRIT 10000 UNITS IV (14:40)
--- NOTE | 2023-12-12 15:29 | PTCARENOTE ---
Left message at [place] [facility] at phone [phone].
--- NOTE | 2023-12-12 15:45 | W.PN.NEPH.HD ---
Assessment
-
pt evaluated during HD
vitals stable
UF as tolerates
CVC functions well
high risk of readmit
for d/c today
Progress Note - Hemodialysis
-
Date of Service: December 12, 2023
Duration: 30 minutes and 3 hours
Potassium Bath: 2
Calcium Bath: 2.5
Opti-Dialyzer: 160
Ultrafiltration: Other (2-3kg)
Blood Flow: 400
Dialysate Flow: 600
Heparin: no
EPO: 98160
[2023-12-12] MEDS: PEPCID 20 MG PO (16:45)
[2023-12-12 17:16] VITALS: BP 167/105
--- NOTE | 2023-12-12 19:18 | PTCARENOTE ---
called 2 more times for answering machine
== END 2023-12-12 19:56 | DRG 682 ==
LOC: 2 NORTH 16:37
PROVIDERS: Student in an Organized Health Care Education/Training Program; ADMITTING PHYSICIAN Hospitalist; ATTENDING PHYSICIAN Hospitalist; CONSULT PHYSICIAN Internal Medicine; EMERGENCY PHYSICIAN Emergency Medicine; FAMILY PHYSICIAN Internal Medicine
PROC: 5A1D70Z Performance of Urinary Filtration, Intermittent, Less than 6 Hours Per Day (ICD-10-PCS; 2023-12-09)
DX: I12.0 Hypertensive chronic kidney disease with stage 5 chronic kidney disease or end stage renal disease (principal); G92.8 Other toxic encephalopathy; L89.323 Pressure ulcer of left buttock, stage 3; N18.6 End stage renal disease; U07.1 COVID-19; G93.49 Other encephalopathy; E87.20 Acidosis, unspecified; D63.1 Anemia in chronic kidney disease; Z99.2 Dependence on renal dialysis; E11.22 Type 2 diabetes mellitus with diabetic chronic kidney disease; E11.51 Type 2 diabetes mellitus with diabetic peripheral angiopathy without gangrene; F32.A Depression, unspecified; I48.0 Paroxysmal atrial fibrillation; F17.210 Nicotine dependence, cigarettes, uncomplicated; I25.10 Atherosclerotic heart disease of native coronary artery without angina pectoris; K21.9 Gastro-esophageal reflux disease without esophagitis; G89.29 Other chronic pain; M25.511 Pain in right shoulder; Z96.0 Presence of urogenital implants; Z89.511 Acquired absence of right leg below knee; Z79.01 Long term (current) use of anticoagulants; Z79.82 Long term (current) use of aspirin; Z79.891 Long term (current) use of opiate analgesic; Z79.899 Other long term (current) drug therapy; Z86.19 Personal history of other infectious and parasitic diseases; Z87.19 Personal history of other diseases of the digestive system; Z87.39 Personal history of other diseases of the musculoskeletal system and connective tissue; Z86.61 Personal history of infections of the central nervous system
CPT/HCPCS: 70551; 71045; 73030; 80048; 80053; 82728; 83540; 83550; 85025; 85027; 86706; 87340; 87811; 93005; 99285; 99406; G0257; P9047; Q5106

== ENCOUNTER 2023-12-13 11:06 | Emergency (ER) | payer MEDICARE, OTHER, SELFPAY ==
[2023-12-13] VITALS (7 sets, daily range): BP systolic 151–166; BP diastolic 85–119; BMI 26.5
--- NOTE | 2023-12-13 11:59 | ED.GENMED ---
History of Present Illness
General
Chief Complaint: Fall
Source: patient, ambulance crew and [facility] records
Exam Limitations: dementia
Time Seen by Provider: 12/13/23 11:58
Nursing documentation reviewed up to this point in time: agreed with
History of Present Illness
History of Present Illness:
68-year-old male from [facility] with history of metabolic encephalopathy, HTN, GERD, hemodialysis, NIDDM presents with history of falling out of bed this morning and bumping his head, has forehead swelling and bruising. Patient is forgetful at
times and states 'I don't remember' when asked what happened 'I guess I fell.' He seems annoyed at any attempt to converse. He has local swelling and ecchymosis left frontal scalp. He denies H/A, neck pain, back pain or injury to his extremities.
Past History
Past History
ED Past Medical History: GERD, HTN, NIDDM, Renal failure (hemodyalysis), Other (Anemia) and Other (Metabolic encephalopathy, hyponatremia)
ED Past Surgical History: Orthopedic (Laminectomy, R BKA)
Social History
Tobacco: Non-smoker
Alcohol: None
Drug: None
Personal:
Living: [facility]
Review of Systems
Review of Systems
Allergies reviewed?: Yes
All Other Systems: ROS reviewed and negative except as documented in HPI and ROS
Constitutional: Denies fever
Respiratory: Denies trouble breathing
Cardiac: Denies chest pain, palpitations or syncope
ABD/GI: Denies abdominal pain, nausea, diarrhea or anorexia
: Denies dysuria, incontinence or difficulty voiding
Musculoskeletal: Reports other (R BKA. ); Denies edema, neck pain or back pain
Skin: Reports other (dry tegaderm dressing R stump)
Neurological: Denies dizzy or headache
Phy Exam
Physical Exam
Physical Exam:
GENERAL: No acute distress. Alert, forgetful
CONSTITUTIONAL: Afebrile.
EYES: PERRL, conjunctivae normal
Neck: Supple
ENMT: moist mucus membranes, Pharynx nl. 5 mm round dark lesion left side tongue
RESPIRATORY: Regular respirations, nonlabored, lungs clear.
CARDIOVASCULAR: Regular rate and irregular rhythm, no murmurs, no rubs.
GI: Soft, nontender, normal BS
MUSCULOSKELETAL: No spinal bony tenderness. No bony tenderness to extremities. BKA right. Well perfused. No edema
SKIN: Warm, dry, pink
PSYCH: Depressed mood and affect. Well kept, interactive and appropriate
NEUROLOGIC: Awake, alert and oriented. Speech clear. Hand grasps equal 4/5. Moving all extremities on command. No focal neurological deficits
Course
Orders/Labs/Results
Orders:
Orders
12/13/23 11:12
CT Head W/o Iv Contrast Urgent
Comment:
Reason For Exam: headstrike on thinner
Vital Signs
Initial and Last Documented VS:
Initial Vital Signs
Temp Pulse Resp BP Pulse Ox
99.3 F 110 18 151/119 95
12/13/23 11:07 12/13/23 11:07 12/13/23 11:07 12/13/23 11:07 12/13/23 11:07
Last Documented Vital Signs
Temp Pulse Resp BP Pulse Ox
99.3 F 106 16 154/85 94
12/13/23 11:07 12/13/23 14:45 12/13/23 14:45 12/13/23 14:00 12/13/23 14:45
MDM/Problems Addressed
Differential Diagnosis Includes:
contusion, concussion, brain bleed
MDM/Problems Addressed:
68-year-old male from [facility] with history of metabolic encephalopathy, HTN, GERD, hemodialysis, NIDDM presents with history of falling out of bed this morning and bumping his head, has forehead swelling and bruising. Patient is forgetful at
times and states 'I don't remember' when asked what happened 'I guess I fell.' He seems annoyed at any attempt to converse. He has local swelling and ecchymosis left frontal scalp. He denies H/A, neck pain, back pain or injury to his extremities.
NAD, VSS
12:[address]
Neuro exam unremarkable. Neck nontender and denies neck and back pain. No indication for further imaging
Stable DC back to [place].
*Critical Care Note
Total Time (30-74mins, 75-104mins- exclusive of procedures): Not Applicable
ED Attending Note
-
Portions of this chart may have been created with voice recognition software.� Occasional wrong word or��sound alike� substitutions may have occurred due to the inherent limitations of voice recognition software.
Discharge Plan
Departure
Patient Disposition: Halfway/SNF
Date of Disposition: 12/13/23
Time of Disposition: 12:21
Condition: Good
Discharge Problem:
Fall, Contusion of scalp
Instructions: Head Injury in Adults (DC), Contusion (DC), Preventing falls in adults
Prescriptions:
No Action
lidocaine 4 % Adhesive Patch,Medicated
1 patch TOPICAL DAILY
acetaminophen 500 mg Tablet
1,000 mg PO TID
cholecalciferol (vitamin D3) 25 mcg (1,000 unit) Tablet
25 mcg PO DAILY
famotidine 20 mg Tablet
20 mg PO Q48H Qty: 0 0RF
pantoprazole 40 mg Tablet,Delayed Release (Dr/Ec)
40 mg PO BID Qty: 0 0RF
midodrine 2.5 mg Tablet
2.5 mg PO Q8HPRN PRN (Reason: sbp<100)
Eliquis 5 mg Tablet
5 mg PO BID Qty: 60 0RF
metoprolol succinate 50 mg Tablet Extended Release 24 Hr
50 mg PO BID Qty: 60 0RF
Lokelma 5 gram Powder In Packet
5 g PO MOWE
Lokelma 10 gram Powder In Packet
10 g PO MOWE
aspirin 81 mg Tablet,Chewable
81 mg PO DAILY
sennosides-docusate sodium [Stool Softener-Laxative] 8.6-50 mg tablet
2 tab PO [id number] PRN (Reason: constipation)
gabapentin 100 mg capsule
100 mg PO MOWEFR@0800
hydromorphone 4 mg tablet
4 mg PO Q8HPRN PRN (Reason: severe pain)
Referrals:
Vinnie Barbosa MD [Family Provider] - Follow up in 2-3 days
Activity Restrictions/Additional Instructions:
Head CT shows nothing worrisome.
No indication of significant injury
Activity as tolerated.
Interventions
Interventions:
*Risk Screen - Suicide Last Done: 12/13/23 11:07
*General Assessment Last Done: 12/13/23 11:07
*Neglect/Abuse Screening Last Done: 12/13/23 11:07
ED- Fall Risk Assessment Last Done: 12/13/23 15:29
*Nursing Disposition Last Done: 12/13/23 15:29
ED-Musculoskeletal Assessment Last Done: 12/13/23 12:05
ED- Neurological Assessment Last Done: 12/13/23 12:05
ED-Skin Assessment Last Done: 12/13/23 12:05
Discharge Date and Time
Discharge Date/Time: 12/13/23 15:30
Print Language: MALAWIAN
== END 2023-12-13 15:30 ==
LOC: EMR 11:06
PROVIDERS: EMERGENCY PHYSICIAN Emergency Medicine; FAMILY PHYSICIAN Internal Medicine
DX: S00.03XA Contusion of scalp, initial encounter (principal); W06.XXXA Fall from bed, initial encounter; E11.22 Type 2 diabetes mellitus with diabetic chronic kidney disease; I12.0 Hypertensive chronic kidney disease with stage 5 chronic kidney disease or end stage renal disease; N18.6 End stage renal disease; Z99.2 Dependence on renal dialysis; F03.90 Unspecified dementia, unspecified severity, without behavioral disturbance, psychotic disturbance, mood disturbance, and anxiety; K21.9 Gastro-esophageal reflux disease without esophagitis; Z89.511 Acquired absence of right leg below knee
CPT/HCPCS: 99284; 70450

== ENCOUNTER 2023-12-19 18:14 | Inpatient (IN) | payer MEDICARE, OTHER, SELFPAY ==
[2023-12-19 16:53] VITALS: BP 131/88
[2023-12-19 16:57] VITALS: BP 131/88
[2023-12-19 17:01] VITALS: BMI 26.6
[2023-12-19 17:10] LABS: % Basophils 0.6 % (0-2); % Eosinophils 1.6 % (0-6); % Immature Granulocytes 1.5 % (0-0.5); % Lymphocytes 13.5 % (20.5-51.1); % Monocytes 13.7 % (1.7-9.3); % Neutrophils 69.1 % (42.2-75.2); Absolute Basophils 0.1 10^3/uL (0-0.2); Absolute Eosinophils 0.1 10^3/uL (0-0.7); Absolute Immature Granulocytes 0.1 10^3/uL (0-0.05); Absolute Lymphocytes 1.1 10^3/uL (1.2-3.4); Absolute Monocytes 1.1 10^3/uL (0.1-0.6); Absolute Neutrophils 5.6 10^3/uL (1.4-6.5); Hematocrit 24.8 % (39.0-52.0); Hemoglobin 7.8 g/dL (13.0-18.0); Mean Corp Hgb Conc. 31.5 g/dL (33.0-37.0); Mean Corpuscular Hgb 26.9 pg (27.0-31.0); Mean Corpuscular Volume 85.5 fL (80.0-94.0); Nucleated Red Blood Cells % 0 % (-); Platelet Count 519 10^3/uL (130-400); Red Cell Dist. Width 16.9 % (11.5-14.5); White Blood Cell Count 8.1 10^3/uL (4.8-10.8)
--- NOTE | 2023-12-19 17:11 | ED.GENMED ---
History of Present Illness
General
Chief Complaint: Abnormal Lab Value
Time Seen by Provider: 12/19/23 17:06
History of Present Illness
History of Present Illness:
68-year-old male with history of end-stage renal disease on dialysis presents from [facility] due to refusal of dialysis for the past 3 sessions. Patient denies any specific complaints at this time however was advised to come to
the ER by his facility due to not having been dialyzed for over 1 week. Denies shortness of breath or chest pain at this time. He states he no underwent dialysis at his current facility and wants to receive it here at the hospital. I informed him
that we do not perform outpatient dialysis here however he is adamant that he will no longer consent to receiving it at [facility].
Past History
Past History
ED Past Medical History: GERD, HTN, NIDDM, Renal failure (hemodyalysis), Other (Anemia) and Other (Metabolic encephalopathy, hyponatremia)
ED Past Surgical History: Orthopedic (Laminectomy, R BKA)
Social History
Tobacco: Non-smoker
Alcohol: None
Drug: None
Personal:
Living: senior care
Review of Systems
Review of Systems
Allergies reviewed?: Yes
All Other Systems: ROS reviewed and negative except as documented in HPI and ROS
Phy Exam
Physical Exam
Physical Exam:
GEN: Well appearing, NAD, WDWN
HEENT: Oral mucosa moist, no scleral icterus
Cardiac: Regular rate
Lung: No respiratory distress, no tachypnea
Chest: Right chest wall dialysis port
MSK: status Post right BKA
Skin: Good color, no pallor or jaundice, no rashes
Neuro: AO x3, moves all extremities freely
Psych: Calm, cooperative
Course
Orders/Labs/Results
Orders:
Orders
12/19/23 16:59
Electrocardiogram (*1) Urgent
Reason for Study: Abdominal Pain
EKG- Treatment ONCE
12/19/23 17:00
Complete Blood Count/With Diff Urgent
Comprehensive Metabolic Panel Urgent
12/19/23 17:55
NEPHROLOGY CONSULT Routine
Consulting Provider: Naresh Villegas
Was physician already notified: Yes
12/19/23 18:04
Admit/Transfer Patient As Directed
Co-Sign Provider:
Level of Care: Inpatient admission
Assign to:: Telemetry
Physician / Group: Briana/hospitalist
Diagnosis: missed HD
Reason for Telemetry: Arrhythmia
Date to Stop Telemetry: 12/22/23
Time to Stop Telemetry: 11:00
Reason for Hospitalization: missed HD
Expected length of stay greater than two midnights?: Yes
ELOS- Estimated Length of Stay in days: 3
I certify the patient meets the requirements for IP care: Yes
PRN Pain Medication Management As Directed
May give lesser potent ordered pain med per pt: Yes
preference::
Protocol:: Medication orders for pain may be administered in a
manner that supports deferring to patient preference
when the pt is:
- Requesting an ordered lesser potent pain medication.
Least to most potent pain medications are defined
as: acetaminophen < NSAID < tramadol < opioids
(morphine, oxycodone, hydromorphone).
- Requesting a lesser dose of the same medication IF
ORDERED.
- Requesting a less intrusive route of administration
if both routes are prescribed by the provider (PO <
IV).
12/19/23 18:06
Code Status As Directed
Resuscitation Status: Full Code
12/19/23 18:07
Hemodialysis treatment As Directed
Treatment date:: 12/20/23
Treatment type: Hemodialysis
Ultrafiltration (kg): 2.5
Treatment time (duration): 3 hours 45 minutes
Use dialysis access:: Tunneled Cath
Dialyzer:: Optiflux 160
Blood flow rate minimum: 350
Blood flow rate maximum: 400
Dialysis flow rate: 600 mL/min
Dialysate temperature: 35 degrees Celsius
Sodium (Na): 140
Potassium (K): 2
Calcium (Ca): 2.5
Bicarbonate (HCO3): 35
12/20/23 07:00
Electrolytes Urgent
Comment: pre-Hemodialysis lab, to be drawn by HD nurse
H&H Urgent
Comment: pre-Hemodialysis lab, to be drawn by HD nurse
12/20/23 08:00
Albumin Human 25% 50 ml [Flexbumin 25% For Hemodialysis] 12.5 grams IV HD-Q1HPRN PRN
Epoetin Pedrito-Epbx [Retacrit] 12,000 units IV HD-ONCE ONE
Ferric Gluconate [Ferrlecit] 125 mg IV HD-ONCE ONE
Heparin See Dose Instructions INTRACATH HD-ONCE ONE
Mannitol 25% 12.5 grams IV HD-Q1HPRN PRN
Sodium Chloride [Sodium Chloride 4 Meq/ml For Hemodialysis] 10 ml IV HD-Q1HPRN PRN
12/22/23 11:00
DC Protocol for Telemetry ONCE
Abnormal Lab Results
12/19/23
17:00
RBC 2.90 L 10^6/uL
(4.70-6.10)
Hgb 7.8 L g/dL
(13.0-18.0)
Hct 24.8 L %
(39.0-52.0)
MCH 26.9 L pg
(27.0-31.0)
MCHC 31.5 L g/dL
(33.0-37.0)
RDW 16.9 H %
(11.5-14.5)
Plt Count 519 H 10^3/uL
(130-400)
Abs Immat Gran (auto) 0.1 H 10^3/uL
(0-0.05)
Absolute Lymphs (auto) 1.1 L 10^3/uL
(1.2-3.4)
Absolute Monos (auto) 1.1 H 10^3/uL
(0.1-0.6)
Immature Gran % 1.5 H %
(0-0.5)
Lymphocytes % 13.5 L %
(20.5-51.1)
Monocytes % 13.7 H %
(1.7-9.3)
Sodium 134 L mmol/L
(135-145)
Carbon Dioxide 19 L mmol/L
(22-30)
BUN 89 H mg/dl
(9-20)
Creatinine 6.6 H* mg/dL
(0.7-1.3)
Glucose 106 H mg/dl
(70-99)
Alkaline Phosphatase 233 H U/L
(38-126)
Albumin 3.1 L g/dl
(3.5-5.0)
12/19/23 17:00
12/19/23 17:00
Vital Signs
Initial and Last Documented VS:
Initial Vital Signs
Temp Pulse Resp BP Pulse Ox
97.7 F 99 20 131/88 98
12/19/23 16:53 12/19/23 16:53 12/19/23 16:53 12/19/23 16:53 12/19/23 16:53
Last Documented Vital Signs
Temp Pulse Resp BP Pulse Ox
97.7 F 99 20 131/88 98
12/19/23 16:53 12/19/23 16:53 12/19/23 16:53 12/19/23 16:53 12/19/23 16:53
MDM/Problems Addressed
MDM/Problems Addressed:
Will admit for dialysis and CM evaluation
*Critical Care Note
Total Time (30-74mins, 75-104mins- exclusive of procedures): Not Applicable
ED Attending Note
-
Portions of this chart may have been created with voice recognition software.� Occasional wrong word or��sound alike� substitutions may have occurred due to the inherent limitations of voice recognition software.
Discharge Plan
Departure
Patient Disposition: Admit
Date of Disposition: 12/19/23
Time of Disposition: 17:51
Admit to: Med/Surg
Presentation/result/management discussed w/ accepting MD/DO: Hospitalist
Discharge Problem:
ESRD on dialysis
Interventions
Interventions:
*Risk Screen - Suicide Last Done: 12/19/23 16:53
*General Assessment Last Done: 12/19/23 16:53
*Neglect/Abuse Screening Last Done: 12/19/23 16:53
[2023-12-19 17:25] LABS: ALT (SGPT) 14 U/L (0-50); AST (SGOT) 23 U/L (17-59); Albumin 3.1 g/dl (3.5-5.0); Alkaline Phosphatase 233 U/L (38-126); Blood Urea Nitrogen 89 mg/dl (9-20); Calcium 8.5 mg/dl (8.4-10.2); Carbon Dioxide 19 mmol/L (22-30); Chloride 98 mmol/L (98-107); Estimated Creatinine Clearance 12 ml/min; Glucose 106 mg/dl (70-99); Sodium 134 mmol/L (135-145); Total Bilirubin 1.3 mg/dl (0.2-1.3); Total Protein 6.5 g/dl (6.3-8.2); eGFR 8.62
--- NOTE | 2023-12-19 17:55 | HPS.HSE ---
Family Physician
-
Family Physician: Vinnie Barbosa
Chief Complaint
-
missed HD
History of Present Illness
HPI: 68-year-old male with history of end-stage renal disease on dialysis presented from [facility] due to refusal of dialysis for the past 3 sessions.
Patient denies to any complaints. He was sent in from his facility due to concern of having missed dialysis for over 1 week.
Although pt refused HD at his facility, he would like to receive it here at the hospital.
Medical History
Past Medical History
Past Medical History: Reports Other (ESRD on hemodialysis, Friday, Friday, Friday, prior uremic encephalopathy, hypertension, diabetes, right BKA, PAD, CAD, paroxysmal atrial fibrillation, hypertension, anemia of chronic disease, lumbar
osteomyelitis/discitis of L2-L4, epidural abscess of L1 to sacrum status post laminectomy, MSSA b)
Past Surgical History: Reports Orthopedic (R BKA)
Social History
Tobacco: Other
Alcohol: Occasional
Living: Jail
Family History
Family History: Not pertinent
Allergies / Home Medications
Allergies reflects when Allergies were last updated in [employer] [facility].
Home Medications with original date entered in [employer] [facility]
Allergy/Medication List:
Allergies
Allergy/AdvReac Type Severity Reaction Status Date / Time
No Known Allergies Allergy Verified 12/19/23 16:59
Home Medications
acetaminophen 500 mg tablet 1,000 mg PO TID Pain 06/29/23
cholecalciferol (vitamin D3) 25 mcg (1,000 unit) tablet 25 mcg PO DAILY Supplement 06/29/23
lidocaine 4 % topical patch 1 patch topical DAILY right shoulder 06/29/23
famotidine 20 mg tablet 20 mg PO Q48H #0 tabs 07/26/23
pantoprazole 40 mg tablet,delayed release 40 mg PO BID #0 tabs 07/26/23
midodrine 2.5 mg tablet 2.5 mg PO Q8HPRN PRN sbp<100 08/22/23
apixaban 5 mg tablet (Eliquis) 5 mg PO BID #60 tabs 08/29/23
metoprolol succinate 50 mg tablet,extended release 24 hr 50 mg PO BID #60 tabs 08/29/23
sodium zirconium cyclosilicate 10 gram oral powder packet (Lokelma) 10 g PO MOWE Electrolyte Repletion 10/22/23
sodium zirconium cyclosilicate 5 gram oral powder packet (Lokelma) 5 g PO MOWE Electrolyte Repletion 10/22/23
aspirin 81 mg chewable tablet 81 mg PO DAILY Blood Clot Prevention/Tx 11/21/23
gabapentin 100 mg capsule 100 mg PO MOWEFR@0800 neuropathic pain 11/21/23
hydromorphone 4 mg tablet 4 mg PO [id number] PRN chronic pain 11/21/23
sennosides 8.6 mg-docusate sodium 50 mg tablet (Stool Softener-Laxative) 2 tab PO [id number] PRN constipation 11/21/23
Review of Systems
-
Constitutional: Reports No Symptoms
Physical Exam
Vital Signs
Vital Signs
Temp Pulse Resp BP Pulse Ox
36.5 C 99 20 131/88 98
12/19/23 16:53 12/19/23 16:53 12/19/23 16:53 12/19/23 16:53 12/19/23 16:53
Physical Exam
General: Well Developed, Well Nourished, No Apparent Distress, Comfortable, Conversant and Appears Chronically Ill
HEENT: NormoCephalic, Moist mucous membranes and Atraumatic
Respiratory: Clear and Non Labored Respirations; No Accessory Resp Muscle Use
Cardiac: S1/S2 and Regular Rhythm; No Murmur or Rub
GI: Soft, Non Tender, Non Distended and Normal Bowel Sounds; No Organomegaly
Rectal: Deferred by Provider
Musculoskeletal: No Clubbing, No Cyanosis, No Edema and Other (R BKA)
Skin: No Rash
Neuro: Awake and Alert
Psych: Calm and Intact Judgment/Insight
Laboratory Results
-
12/19/23 17:00
12/19/23 17:00
Laboratory Results
Total Bilirubin 1.3 mg/dl (0.2-1.3) 12/19/23 17:00
AST 23 U/L (17-59) 12/19/23 17:00
ALT 14 U/L (0-50) 12/19/23 17:00
Alkaline Phosphatase 233 U/L (38-126) H 12/19/23 17:00
Data Reviewed
-
Lab Data: Labs Reviewed by me
Impression/Plan
-
HPI: 68-year-old male with history of end-stage renal disease on dialysis presented from [facility] due to refusal of dialysis for the past 3 sessions.
Patient denies to any complaints. He was sent in from his facility due to concern of having missed dialysis for over 1 week.
Although pt refused HD at his facility, he would like to receive it here at the hospital.
A/P:
# Refusal hence missed HD at [facility]
# ESRD on HD
Renal CS for HD
# Chronic Hypotension
cont chronic Midodrine
# Paroxysmal P AFib
Cont [employer] BB and AC
# PAD s/p stent and right BKA
Cont ASA
Wound care
# Anemia of chronic disease
# CAD
Continue ASA
DVT ppx: [employer] Eliquis
FC
--- NOTE | 2023-12-19 18:00 | W.CON.NEPH ---
Consultation
-
Date/Time Consultation Requested: 12/19/23 1700
Date/Time Consultation Performed: 12/19/23 1800
Requesting Provider: Dr. Barton
Performing Provider: Dr. Villegas
Reason for Consultation: ESRD
Medical History
-
Chief Complaint: Weakness, body aches
History of Present Illness:
68-year-old male from [facility] with PAD s/p right BKA, ESRD on MWF HD through right IJ HD catheter, chronic hyperkalemia on Lokelma, Pafib on eliquis, chronic pain on hydromorphone, gabapentin, lumbar osteomyelitis/discitis of
L2-L4, epidural abscess of L1 to sacrum status post laminectomy, who also has h/o non compliance of HDs sent from [facility] for missing HD for 1 week.
Patient says that he refused dialysis for the last week because of conflict with the dialysis nurse at [facility].
He was just in the hospital from December 07 to December 11 for also refusing dialysis for 1 week though at that point he had said it was because he did not felt well for having had COVID.
Past Medical History
Paroxysmal A-fib new onset 08/24/2023
Discitis
Diverticulosis
Hypertension
GERD
Depression
End-stage renal disease
Osteomyelitis
Peripheral vascular disease
Type 2 diabetes
C. difficile colitis
GI bleed
Past Medical History: Other
Past Surgical History: Other (laminectomy, Rt BKA)
Social History
Tobacco: Smoker (Currently smoking 3 cigarettes a day for the last 4 months prior 1 pack a day 54 years)
Alcohol: Occasional (Every other week prior to July 2023)
Drug: None
Personal: Single
Living: Shelter
Employment: Disabled
Family History
Mother and father reports history of CHF/ND mother age 64 father age 66 patient with 2 sisters healthy, 3 brothers with history of mental illness
Family History: Not Pertinent
Allergies / Home Medications
Allergy/AdvReac Type Severity Reaction Status Date / Time
No Known Allergies Allergy Verified 12/19/23 16:59
�Medication �Instructions �Recorded �Confirmed �Type
acetaminophen 500 mg tablet 1,000 mg PO TID Pain 06/29/23 12/19/23 History
cholecalciferol (vitamin D3) 25 25 mcg PO DAILY Supplement 06/29/23 12/19/23 History
mcg (1,000 unit) tablet
lidocaine 4 % topical patch 1 patch topical DAILY right 06/29/23 12/19/23 History
shoulder
famotidine 20 mg tablet 20 mg PO Q48H #0 tabs 07/26/23 12/19/23 Rx
pantoprazole 40 mg tablet,delayed 40 mg PO BID #0 tabs 07/26/23 12/19/23 Rx
release
midodrine 2.5 mg tablet 2.5 mg PO Q8HPRN PRN sbp<100 08/22/23 12/19/23 History
apixaban 5 mg tablet (Eliquis) 5 mg PO BID #60 tabs 08/29/23 12/19/23 Rx
metoprolol succinate 50 mg 50 mg PO BID #60 tabs 08/29/23 12/19/23 Rx
tablet,extended release 24 hr
sodium zirconium cyclosilicate 10 10 g PO MOWE Electrolyte Repletion 10/22/23 12/19/23 History
gram oral powder packet (Lokelma)
sodium zirconium cyclosilicate 5 5 g PO MOWE Electrolyte Repletion 10/22/23 12/19/23 History
gram oral powder packet (Lokelma)
aspirin 81 mg chewable tablet 81 mg PO DAILY Blood Clot 11/21/23 12/19/23 History
Prevention/Tx
gabapentin 100 mg capsule 100 mg PO MOWEFR@0800 neuropathic 11/21/23 12/19/23 History
pain
hydromorphone 4 mg tablet 4 mg PO [id number] PRN chronic pain 11/21/23 12/19/23 History
sennosides 8.6 mg-docusate sodium 2 tab PO [id number] PRN constipation 11/21/23 12/19/23 History
50 mg tablet (Stool
Softener-Laxative)
Review of Systems
-
No chest pain or shortness of breath; chronic back pain
All other systems: Negative unless noted
Physical Exam
Vital Signs
Vital Signs
Temp Pulse Resp BP Pulse Ox
97.7 F 99 20 131/88 98
12/19/23 16:53 12/19/23 16:53 12/19/23 16:53 12/19/23 16:53 12/19/23 16:53
Lab Results
WBC 8.1 10^3/uL (4.8-10.8) 12/19/23 17:00
RBC 2.90 10^6/uL (4.70-6.10) L 12/19/23 17:00
Hgb 7.8 g/dL (13.0-18.0) L 12/19/23 17:00
Hct 24.8 % (39.0-52.0) L 12/19/23 17:00
Plt Count 519 10^3/uL (130-400) H 12/19/23 17:00
Sodium 134 mmol/L (135-145) L 12/19/23 17:00
Potassium 5.0 mmol/L (3.5-5.1) 12/19/23 17:00
Chloride 98 mmol/L (98-107) 12/19/23 17:00
Carbon Dioxide 19 mmol/L (22-30) L 12/19/23 17:00
BUN 89 mg/dl (9-20) H 12/19/23 17:00
Creatinine 6.6 mg/dL (0.7-1.3) H* 12/19/23 17:00
eGFR 8.62 12/19/23 17:00
Glucose 106 mg/dl (70-99) H 12/19/23 17:00
Calcium 8.5 mg/dl (8.4-10.2) 12/19/23 17:00
Albumin 3.1 g/dl (3.5-5.0) L 12/19/23 17:00
Laboratory Tests
12/12/23 12/12/23
13:28 13:29
Hgb 7.1 L
Sodium 134 L
Potassium 3.6
Physical Exam
Patient is awake alert oriented and in no distress. Mood and affect were pleasant, insight and judgment were good. Pupils are equal round and reactive to light, extraocular movements are intact, sclera were anicteric. Hearing was normal, ears and
nose are intact. Oropharynx was clear. Neck was supple with trachea midline and no thyromegaly. Heart was regular rate and rhythm without rubs. Lower extremities without edema. Lungs were clear to auscultation bilaterally and with normal
excursion. Abdomen was soft, nontender, with normal active bowel sounds, and no hepatosplenomegaly. Skin was without rash and with normal turgor. Right AV fistula with thrill and bruit
Data Reviewed
-
Radiology: Image Personally Visualized and interpreted (Chest x-ray on 12/08/2023 by my reading shows)
Medical Tests (Nuc Med, Echo etc): Image Personally Visualized and interpreted (EKG on 12/19/2023 by my read shows atrial fibrillation inferior lateral ST-T wave abnormalities, prolonged QT)
Labs: Labs Reviewed by me
Old Records: Reviewed
Assessment/Plan
-
Impression:
Anemia
met acidosis
ESRD on hemodialysis Friday, Friday, Friday
PAD status post right lower extremity stent
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
Stump infection with open wound prior suture border 08/22/2023
Right BKA
Paroxysmal atrial fibrillation
GERD
Tunneled right IJ catheter
Plan:
Plan for dialysis tomorrow
SARTHAK on dialysis
Iron studies were low last admission we will continue iron IV repletion
Anticipate continued readmission in the future for refusal of dialysis at the outpatient unit
[2023-12-19 19:01] VITALS: BP 136/93
[2023-12-19 19:02] VITALS: BP 136/93
--- NOTE | 2023-12-19 19:35 | PTCARENOTE ---
Addendum entered by Inga Kessler RN 12/20/23 03:02:
Pt keeps removing heart monitor. pt c/o 01/26 pain all over body and asking for something to sleep. MONICA Ayala made aware of pt noncompliance with heart monitor, as well as pain. PO dilaudid ordered and given. pt agreed to put monitor back on.
Original Note:
Pt admitted to 327 from ED. Pulled over to bed. AAOx3 but forgetful, bed alarm in place. Placed on tele, afib on monitor. Vss. Call mullen within reach.
[2023-12-19 19:50] VITALS: BP 150/96
[2023-12-19] MEDS: PROTONIX 40 MG PO (20:23)
[2023-12-19] MEDS: TOPROL XL 50 MG PO (20:23)
[2023-12-19] MEDS: ELIQUIS 5 MG PO (20:23)
[2023-12-19] MEDS: TYLENOL 1000 MG PO (21:31)
[2023-12-19 23:00] VITALS: BP 142/95
[2023-12-20] MEDS: DILAUDID 4 MG PO ×2 (02:51→21:38)
[2023-12-20 03:00] VITALS: BP 149/92
[2023-12-20] MEDS: TYLENOL 1000 MG PO ×2 (05:39→21:38)
[2023-12-20 06:00] VITALS: BMI 26.7
--- NOTE | 2023-12-20 06:38 | PTCARENOTE ---
Patient originally told PCT that he had a bowel movement last night and described the size and consistency. Nurse communicated that he did not have a bowel movement last night.
[2023-12-20 07:00] VITALS: BP 148/91
[2023-12-20 07:15] LABS: Hematocrit 22.7 % (39.0-52.0); Hemoglobin 7.2 g/dL (13.0-18.0); Mean Corp Hgb Conc. 31.7 g/dL (33.0-37.0); Mean Platelet Volume 9.4 fL (7.4-10.4); Platelet Count 532 10^3/uL (130-400); Red Blood Cell Count 2.67 10^6/uL (4.70-6.10); White Blood Cell Count 7.7 10^3/uL (4.8-10.8)
[2023-12-20 07:57] LABS: Blood Urea Nitrogen 91 mg/dl (9-20); Calcium 8.6 mg/dl (8.4-10.2); Carbon Dioxide 19 mmol/L (22-30); Chloride 95 mmol/L (98-107); Estimated Creatinine Clearance 11 ml/min; Glucose 84 mg/dl (70-99); Potassium 5.1 mmol/L (3.5-5.1); Sodium 132 mmol/L (135-145); eGFR 8.03
[2023-12-20] MEDS: PROTONIX 40 MG PO ×2 (08:41→19:47)
[2023-12-20] MEDS: TOPROL XL 50 MG PO ×2 (08:41→19:48)
[2023-12-20] MEDS: VITAMIN D3 (cholecalciferol) 25 MCG PO (08:41)
[2023-12-20] MEDS: PEPCID 20 MG PO (08:41)
[2023-12-20] MEDS: LOW STRENGTH ASPIRIN 81 MG PO (08:41)
[2023-12-20] MEDS: ELIQUIS 5 MG PO ×2 (08:41→19:47)
[2023-12-20] MEDS: LIDOCAINE 4% PATCH 1 PATCH TOPICAL (08:41)
--- NOTE | 2023-12-20 10:38 | W.PN.HOSP.TC ---
Today's Communication/Plan
-
see A/P
Assessment / Plan
Assessment / Plan
HPI: 68-year-old male with history of end-stage renal disease on dialysis presented from [facility] due to refusal of dialysis for the past 3 sessions.
Patient denies to any complaints. He was sent in from his facility due to concern of having missed dialysis for over 1 week.
Although pt refused HD at his facility, he would like to receive it here at the hospital.
A/P:
# [place] HD [place]
# ESRD on HD
Renal on board for HD
# Chronic Hypotension
cont chronic Midodrine
# Paroxysmal P AFib
Cont PUZZLE ASSEMBLER BB and AC
# PAD s/p stent and right BKA
Cont ASA
Wound care
# Anemia of chronic disease
# CAD
Continue ASA
DVT ppx: PUZZLE ASSEMBLER Eliquis
FC
DW RN
Anticipated Discharge: > 48 hours
Subjective/Interval History
-
Date of Service: December 20, 2023
Objective Data
-
Labs:
Laboratory Results
12/20/23
06:33
WBC 7.7
Hgb 7.2 L
Hct 22.7 L
Plt Count 532 H
Sodium 132 L
Potassium 5.1
Chloride 95 L
Carbon Dioxide 19 L
BUN 91 H
Creatinine 7.0 H*
Glucose 84
Calcium 8.6
Vital Signs:
Vital Signs
Temp Pulse Resp BP Pulse Ox
36.3 C 101 16 148/91 100
12/20/23 07:00 12/20/23 07:00 12/20/23 07:00 12/20/23 07:00 12/20/23 07:00
I&O
11/03/1212/20/23 12/21/23
06:59 06:59 05:59
Intake Total 720 / 720
Output Total 250 / 250
Balance 470 / 470
Review of Systems
-
All other systems: Reviewed and negative
Physical Exam
-
General: Well Developed, Well Nourished, No Apparent Distress, Comfortable and Conversant
HEENT: Normocephalic, Atraumatic and Moist Mucous Membranes
Respiratory: Clear to Auscultation and Non Labored Respirations; Negative Accessory Resp Muscle Use
Cardiac: Regular Rhythm and S1/S2
GI: Soft, Nontender and Nondistended
Musculoskeletal: Other (R BKA )
Neuro: Awake, Alert and Oriented
Psych: Calm and Intact Judgement/Insight
Data Reviewed
-
Labs: Labs Reviewed by me
[2023-12-20 11:00] VITALS: BP 132/91
[2023-12-20] MEDS: FERRLECIT 125 MG IV (12:58)
[2023-12-20] MEDS: RETACRIT 2000 UNITS IV (12:58)
[2023-12-20] MEDS: RETACRIT 10000 UNITS IV (13:00)
--- NOTE | 2023-12-20 14:23 | W.PN.NEPH.HD ---
Assessment
-
Seen on HD. no complaints. VSS, access dysfunctional. cathflo to ports after HD
Progress Note - Hemodialysis
-
Date of Service: December 20, 2023
Duration: 45 minutes and 3 hours
Potassium Bath: 2
Calcium Bath: 2.5
Opti-Dialyzer: 160
Ultrafiltration: Other (2.5kg)
Blood Flow: 400
Dialysate Flow: 600
Heparin: 0
EPO: 63159 units
[2023-12-20 15:00] VITALS: BP 165/93
[2023-12-20] MEDS: CATHFLO/ACTIVASE 2 MG IV ×2 (16:28→16:29)
[2023-12-20] MEDS: TYLENOL PO (17:40)
[2023-12-20 19:00] VITALS: BP 143/89
[2023-12-20 23:00] VITALS: BP 146/95
[2023-12-21 03:00] VITALS: BP 150/83
[2023-12-21 05:04] LABS: Hematocrit 23.3 % (39.0-52.0); Hemoglobin 7.4 g/dL (13.0-18.0); Mean Corp Hgb Conc. 31.8 g/dL (33.0-37.0); Mean Corpuscular Hgb 28.2 pg (27.0-31.0); Mean Corpuscular Volume 88.9 fL (80.0-94.0); Mean Platelet Volume 9.4 fL (7.4-10.4); Platelet Count 480 10^3/uL (130-400); Red Blood Cell Count 2.62 10^6/uL (4.70-6.10); Red Cell Dist. Width 16.9 % (11.5-14.5); White Blood Cell Count 4.9 10^3/uL (4.8-10.8)
[2023-12-21 05:47] LABS: Blood Urea Nitrogen 51 mg/dl (9-20); Calcium 8.3 mg/dl (8.4-10.2); Carbon Dioxide 26 mmol/L (22-30); Chloride 98 mmol/L (98-107); Estimated Creatinine Clearance 19 ml/min; Glucose 98 mg/dl (70-99); Potassium 4.1 mmol/L (3.5-5.1); Sodium 138 mmol/L (135-145); eGFR 14.83
[2023-12-21 06:00] VITALS: BMI 25.6
[2023-12-21 07:00] VITALS: BP 148/95
[2023-12-21] MEDS: VITAMIN D3 (cholecalciferol) 25 MCG PO (07:55)
[2023-12-21] MEDS: LIDOCAINE 4% PATCH 1 PATCH TOPICAL (07:55)
[2023-12-21] MEDS: TYLENOL 1000 MG PO ×3 (07:55→22:06)
[2023-12-21] MEDS: LOW STRENGTH ASPIRIN 81 MG PO (07:56)
[2023-12-21] MEDS: ELIQUIS 5 MG PO ×2 (07:56→20:34)
[2023-12-21] MEDS: TOPROL XL 50 MG PO ×2 (07:56→20:35)
[2023-12-21] MEDS: PROTONIX 40 MG PO ×2 (07:56→20:34)
--- NOTE | 2023-12-21 09:42 | W.PN.NEPH.PH ---
Today's Communication / Plan
-
HD tomorrow
Assessment/Plan
-
Impression:
Anemia
met acidosis
ESRD on hemodialysis Friday, Friday, Friday
PAD status post right lower extremity stent
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
Stump infection with open wound prior suture border 08/22/2023
Right BKA
Paroxysmal atrial fibrillation
GERD
Tunneled right IJ catheter
Plan:
Plan for dialysis tomorrow
SARTHAK on dialysis
Anticipate continued readmission in the future for refusal of dialysis at the outpatient unit
he is currently stable from a dialysis standpoint and could return to [place].
-
-
Date of Service: December 21, 2023
CC / HPI / ROS
-
Chief Complaint:
ESRD
History of Present Illness:
tolerated HD yesterday
BP stable
right shoulder pain
hgb low stable 7.4
Review of Systems:
no CP/SOB
Labs
-
Labs:
WBC 4.9 10^3/uL (4.8-10.8) 12/21/23 04:29
RBC 2.62 10^6/uL (4.70-6.10) L 12/21/23 04:29
Hgb 7.4 g/dL (13.0-18.0) L 12/21/23 04:29
Hct 23.3 % (39.0-52.0) L 12/21/23 04:29
Plt Count 480 10^3/uL (130-400) H 12/21/23 04:29
Sodium 138 mmol/L (135-145) 12/21/23 04:29
Potassium 4.1 mmol/L (3.5-5.1) 12/21/23 04:29
Chloride 98 mmol/L (98-107) 12/21/23 04:29
Carbon Dioxide 26 mmol/L (22-30) 12/21/23 04:29
BUN 51 mg/dl (9-20) H 12/21/23 04:29
Creatinine 4.2 mg/dL (0.7-1.3) H* 12/21/23 04:29
eGFR 14.83 12/21/23 04:29
Glucose 98 mg/dl (70-99) 12/21/23 04:29
Calcium 8.3 mg/dl (8.4-10.2) L 12/21/23 04:29
Albumin 3.1 g/dl (3.5-5.0) L 12/19/23 17:00
Physical Exam
-
Vital Signs:
Vital Signs
Temp Pulse Resp BP Pulse Ox
97.9 F 100 18 148/95 99
12/21/23 07:00 12/21/23 07:56 12/21/23 07:00 12/21/23 07:56 12/21/23 07:00
Cardiovascular:: Regular rate and rhythm
Respiratory:: Bilateral: Coarse
Lung Excursion:: Normal
Abdomen:: Nontender and Soft
Bowel Sounds:: Normal
Extremity Edema:: None: Bilateral:
--- NOTE | 2023-12-21 09:45 | W.PN.HOSP.TC ---
Today's Communication/Plan
-
see A/P
Assessment / Plan
Assessment / Plan
HPI: 68-year-old male with history of end-stage renal disease on dialysis presented from [facility] due to refusal of dialysis for the past 3 sessions.
Patient denies to any complaints. He was sent in from his facility due to concern of having missed dialysis for over 1 week.
Although pt refused HD at his facility, he would like to receive it here at the hospital.
A/P:
# [place] HD [place]
# ESRD on HD
Renal on board for HD
HD Thursday 12/21
# Chronic Hypotension
cont chronic Midodrine
# Paroxysmal P AFib
Cont COMMUNITY EDUCATION SPECIALIST BB and AC
# PAD s/p stent and right BKA
Cont ASA
Wound care
# Anemia of chronic disease
# CAD
Continue ASA
DVT ppx: COMMUNITY EDUCATION SPECIALIST Eliquis
FC
Anticipated Discharge: 24 - 48 hours
Subjective/Interval History
-
Date of Service: December 21, 2023
Objective Data
-
Labs:
Laboratory Results
12/21/23
04:29
WBC 4.9
Hgb 7.4 L
Hct 23.3 L
Plt Count 480 H
Sodium 138
Potassium 4.1
Chloride 98
Carbon Dioxide 26
BUN 51 H
Creatinine 4.2 H*
Glucose 98
Calcium 8.3 L
Vital Signs:
Vital Signs
Temp Pulse Resp BP Pulse Ox
36.6 C 100 18 148/95 99
12/21/23 07:00 12/21/23 07:56 12/21/23 07:00 12/21/23 07:56 12/21/23 07:00
I&O
1112/21/23 12/22/23
07:59 06:59 06:59
Intake Total
Output Total
Balance
Review of Systems
-
All other systems: Reviewed and negative
Physical Exam
-
General: Well Developed, Well Nourished, No Apparent Distress, Comfortable and Conversant
HEENT: Normocephalic, Atraumatic and Moist Mucous Membranes
Respiratory: Clear to Auscultation and Non Labored Respirations; Negative Accessory Resp Muscle Use
Cardiac: Regular Rhythm and S1/S2
GI: Soft, Nontender and Nondistended
Musculoskeletal: Other (R BKA )
Neuro: Awake, Alert and Oriented
Psych: Calm and Intact Judgement/Insight
Data Reviewed
-
Labs: Labs Reviewed by me
[2023-12-21 11:00] VITALS: BP 150/86
[2023-12-21 15:00] VITALS: BP 160/90
[2023-12-21] MEDS: DILAUDID 4 MG PO (17:51)
[2023-12-21 19:42] VITALS: BP 143/84
[2023-12-21 23:15] VITALS: BP 150/81
[2023-12-22 03:56] VITALS: BP 142/79; BMI 26.0
[2023-12-22 06:28] LABS: Hematocrit 24.1 % (39.0-52.0); Hemoglobin 7.5 g/dL (13.0-18.0); Mean Corp Hgb Conc. 31.1 g/dL (33.0-37.0); Mean Corpuscular Volume 89.9 fL (80.0-94.0); Platelet Count 485 10^3/uL (130-400); Red Blood Cell Count 2.68 10^6/uL (4.70-6.10); Red Cell Dist. Width 16.8 % (11.5-14.5); White Blood Cell Count 5.4 10^3/uL (4.8-10.8)
[2023-12-22 06:58] LABS: Blood Urea Nitrogen 64 mg/dl (9-20); Carbon Dioxide 24 mmol/L (22-30); Chloride 96 mmol/L (98-107); Estimated Creatinine Clearance 16 ml/min; Glucose 88 mg/dl (70-99); Sodium 135 mmol/L (135-145); eGFR 12.03
[2023-12-22] MEDS: TOPROL XL PO (07:18)
[2023-12-22 07:48] VITALS: BP 125/85
[2023-12-22] MEDS: TYLENOL 1000 MG PO ×2 (08:05→20:46)
[2023-12-22] MEDS: PEPCID 20 MG PO (08:05)
[2023-12-22] MEDS: LIDOCAINE 4% PATCH 1 PATCH TOPICAL (08:05)
[2023-12-22] MEDS: LOW STRENGTH ASPIRIN 81 MG PO (08:05)
[2023-12-22] MEDS: PROTONIX 40 MG PO ×2 (08:05→20:46)
[2023-12-22] MEDS: VITAMIN D3 (cholecalciferol) 25 MCG PO (08:05)
[2023-12-22] MEDS: ELIQUIS 5 MG PO ×2 (08:05→20:45)
[2023-12-22] MEDS: NEURONTIN 100 MG PO (08:06)
--- NOTE | 2023-12-22 08:35 | W.PN.NEPH.HD ---
Assessment
-
Patient seen on dialysis
Systolic blood pressure 130 with UF set to 2.5 kg
Dialysis via catheter
Progress Note - Hemodialysis
-
Date of Service: December 22, 2023
Duration: 30 minutes and 3 hours
Potassium Bath: 2
Calcium Bath: 2.5
Opti-Dialyzer: 160
Ultrafiltration: Other (2.5 kg)
Blood Flow: 400
Dialysate Flow: 600
Heparin: None
EPO: 12,000
[2023-12-22] MEDS: RETACRIT 10000 UNITS IV (08:53)
[2023-12-22] MEDS: RETACRIT 2000 UNITS IV (08:53)
--- NOTE | 2023-12-22 09:16 | WOUNDNOTE ---
Sandra CESAR (with photo flash)
--- NOTE | 2023-12-22 09:17 | WOUNDNOTE ---
[facility] RN note: Patient admitted because of missed HD. Patient resides at [facility].
See H&P for complete history.
PMH: ESRD on HD, HTN, DM, R BKA 07/22/[address] Mccloud, OR debridement of R BKA 08/25/[address] Gutierrez , PAD, CAD
Wound Location and type/assessment: Patient admitted with: full thickness R BKA wound, pink/yellow/crusted dark purple, sacral/buttocks stage 2 pressure injuries. L upper forehead bruise patient stated happened a week ago from banging his head
while trying to get out of bed. Patient saw Dr. Gutierrez on 11/05/23 and Santyl with saline gauze dressing was ordered.
Appetite: good.
Pressure redistribution devices in place: [employer] Air bed. Patient can turn self in bed and moves his moves his LLE frequently.
Plan: R BKA dressing changed. Silicone border foam changed on sacrum. Patient pulled up in bed with help from HD nurse Viri. Air chair cushion placed under L heel. Instructed patient pressure injury prevention measures.
Will confirm orders with Dr. Blackburn and updated RN Moriah.
Care plan to be updated and will follow as needed.
Patient to follow up with Dr. Gutierrez.
[2023-12-22] MEDS: HEPARIN 4300 UNITS INTRACATH (11:04)
[2023-12-22 11:22] VITALS: BP 127/79
--- NOTE | 2023-12-22 12:07 | CM ---
Addendum entered by Cecilia Dennis 12/22/23 14:32:
per Dr Bray, ADC tomorrow
Update to Amy/admissions
Original Note:
CM reviewed chart and pt with frequent readmissions
Pt is a LTC resident from [facility]
Pt with L BKA and HD MWF
Pt has a MA bedhold
VM left for nursing staff at SNF to inquire into PLOF
WOC following
Discharge Disposition- return [facility] HD
--- NOTE | 2023-12-22 14:14 | W.PN.HOSP.TC ---
Today's Communication/Plan
-
back to SNF in 24 hours to resume facility HD
Assessment / Plan
Assessment / Plan
Assessment:
ESRD on HD
- missed HD at [facility] (apparently due to refusal)
- Nephrology following for inpatient HD needs
full thickness R BKA wound, POA (pink/yellow/crusted dark purple)
sacral/buttocks stage 2 pressure injuries
L upper forehead bruise patient stated happened a week ago from banging his head while trying to get out of bed
- wound care following
Chronic Hypotension
- cont chronic Midodrine
Paroxysmal P AFib
- cont AUTO SERVICE STATION ATTENDANT BB and AC
PAD s/p stent and right BKA
- cont ASA
- wound care
Anemia of chronic disease
CAD
- continue ASA
DVT ppx: Eliquis
Code: Full
Dispo: back to SNF in 24 hours to resume facility HD
Anticipated Discharge: Within 24 hours
Subjective/Interval History
-
Date of Service: December 22, 2023
seen earlier on HD, no complaints was tolerating well
Objective Data
-
Labs:
Laboratory Results
12/22/23
06:03
WBC 5.4
Hgb 7.5 L
Hct 24.1 L
Plt Count 485 H
Sodium 135
Potassium 5.0
Chloride 96 L
Carbon Dioxide 24
BUN 64 H
Creatinine 5.0 H*
Glucose 88
Calcium 9.0
Vital Signs:
Vital Signs
Temp Pulse Resp BP Pulse Ox
98.4 F 95 16 127/79 97
12/22/23 11:22 12/22/23 11:22 12/22/23 11:22 12/22/23 11:22 12/22/23 11:22
I&O
12/21/23 12/22/23 12/23/23
06:59 06:59 06:59
Intake Total 1310 / 1310
Output Total 1075 / 1075
Balance 235 / 235
Physical Exam
-
General: No Apparent Distress
HEENT: Normocephalic and Atraumatic
Respiratory: Negative Wheezes
Cardiac: Regular Rhythm and S1/S2
GI: Soft
Musculoskeletal: No Edema
Neuro: AO x 3
Psych: Calm
Data Reviewed
-
Total Time Spent with Patient (in minutes): 42
Labs: Labs Reviewed by me
[2023-12-22] MEDS: TYLENOL PO (15:12)
[2023-12-22 15:23] VITALS: BP 158/89
[2023-12-22] MEDS: TOPROL XL 50 MG PO (20:46)
[2023-12-22 22:30] VITALS: BP 147/88
[2023-12-23 04:38] VITALS: BMI 25.6
[2023-12-23 06:59] VITALS: BP 144/93
[2023-12-23] MEDS: ELIQUIS 5 MG PO (07:20)
[2023-12-23] MEDS: VITAMIN D3 (cholecalciferol) 25 MCG PO (07:20)
[2023-12-23] MEDS: LOW STRENGTH ASPIRIN 81 MG PO (07:20)
[2023-12-23] MEDS: TYLENOL 1000 MG PO (07:20)
[2023-12-23] MEDS: PROTONIX 40 MG PO (07:20)
[2023-12-23] MEDS: SANTYL OINTMENT 1 APPLIC TOPICAL (07:21)
[2023-12-23] MEDS: TOPROL XL 50 MG PO (07:23)
[2023-12-23] MEDS: LIDOCAINE 4% PATCH 1 PATCH TOPICAL (07:25)
--- NOTE | 2023-12-23 08:52 | CM ---
Addendum entered by Geri Carlisle 12/23/23 10:06:
Amy from [facility] updated re transport time.
Addendum entered by Geri Carlisle 12/23/23 10:00:
IMM completed.
Original Note:
Patient for transport back to [facility] today.
Patient will require ambulance transport.
Plan: back to [facility] today
[facility] rehab
report# [phone]
--- NOTE | 2023-12-23 10:51 | W.PN.HOSP.TC ---
Today's Communication/Plan
-
dc to SNF
Assessment / Plan
Assessment / Plan
Assessment:
ESRD on HD
- missed HD at [facility] (apparently due to refusal)
- Nephrology following for inpatient HD needs
full thickness R BKA wound, POA (pink/yellow/crusted dark purple)
sacral/buttocks stage 2 pressure injuries
L upper forehead bruise patient stated happened a week ago from banging his head while trying to get out of bed
- wound care following
Chronic Hypotension
- cont chronic Midodrine
Paroxysmal P AFib
- cont ASSISTANT PLANT CONTROLLER BB and AC
PAD s/p stent and right BKA
- cont ASA
- wound care
Anemia of chronic disease
CAD
- continue ASA
DVT ppx: Eliquis
Code: Full
Dispo: back to [facility] today
More than 30 minutes spent in discharge including
Final examination of the patient
Summarizing hospital stay
Instructions for continuing care to all relevant caregivers
Preparation of discharge records, prescriptions, and referral forms
Total time spent (in minutes):41
Anticipated Discharge: Today
Subjective/Interval History
-
Date of Service: December 23, 2023
denies any new complaints at present
Objective Data
-
Vital Signs:
Vital Signs
Temp Pulse Resp BP Pulse Ox
97.7 F 88 18 144/93 99
12/23/23 06:59 12/23/23 06:59 12/23/23 06:59 12/23/23 06:59 12/23/23 06:59
I&O
12/22/23 12/23/23 12/24/23
06:59 06:59 06:59
Intake Total 1310 / 1310 720 / 720
Output Total 1075 / 1075 880 / 880
Balance 235 / 235 -160 / -160
Physical Exam
-
General: No Apparent Distress
HEENT: Normocephalic and Atraumatic
Respiratory: Negative Wheezes
Cardiac: Regular Rhythm and S1/S2
GI: Soft and Nontender
Genito-urinary: No Costovertebral Tender
Musculoskeletal: No Edema
Neuro: AO x 3
Psych: Calm
Data Reviewed
-
Total Time Spent with Patient (in minutes): 41
Labs: Labs Reviewed by me
--- NOTE | 2023-12-23 10:54 | W.DS.TRANS ---
DC Summary - Automotive Service Consultant
-
Discharge Instructions:
Discharge Diagnosis/Procedures ESRD on HD, missed HD
Diet 2 Gram Sodium,Restrict fluids to 48 oz,Other
diet
Additional Diets 2 gram potassium restriction
Activity As tolerated
Bathing Restrictions None
Instructions:
Stand-Alone Forms:
Changes to Home Medications: No
Discharge Medications:
DC Medications w/original date entered in [employer]
acetaminophen 500 mg tablet 1,000 mg PO TID Pain 06/29/23
cholecalciferol (vitamin D3) 25 mcg (1,000 unit) tablet 25 mcg PO DAILY Supplement 06/29/23
lidocaine 4 % topical patch 1 patch topical DAILY right shoulder 06/29/23
famotidine 20 mg tablet 20 mg PO Q48H #0 tabs 07/26/23
pantoprazole 40 mg tablet,delayed release 40 mg PO BID #0 tabs 07/26/23
midodrine 2.5 mg tablet 2.5 mg PO Q8HPRN PRN sbp<100 08/22/23
apixaban 5 mg tablet (Eliquis) 5 mg PO BID #60 tabs 08/29/23
metoprolol succinate 50 mg tablet,extended release 24 hr 50 mg PO BID #60 tabs 08/29/23
sodium zirconium cyclosilicate 10 gram oral powder packet (Lokelma) 10 g PO MOWE Electrolyte Repletion 10/22/23
sodium zirconium cyclosilicate 5 gram oral powder packet (Lokelma) 5 g PO MOWE Electrolyte Repletion 10/22/23
aspirin 81 mg chewable tablet 81 mg PO DAILY Blood Clot Prevention/Tx 11/21/23
gabapentin 100 mg capsule 100 mg PO MOWEFR@0800 neuropathic pain 11/21/23
hydromorphone 4 mg tablet 4 mg PO [id number] PRN chronic pain 11/21/23
sennosides 8.6 mg-docusate sodium 50 mg tablet (Stool Softener-Laxative) 2 tab PO [id number] PRN constipation 11/21/23
collagenase clostridium histo. 250 unit/gram topical ointment (Santyl) 1 applic topical DAILY #90 grams 12/23/23
Home Medication Changes
Pending Results: No
Total time spent discharging patient (in min): 41
--- NOTE | 2023-12-23 12:01 | W.PN.NEPH.PH ---
Today's Communication / Plan
-
stable for discharge
Assessment/Plan
-
Impression:
Anemia
met acidosis
ESRD on hemodialysis Friday, Friday, Friday
PAD status post right lower extremity stent
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
Stump infection with open wound prior suture border 08/22/2023
Right BKA
Paroxysmal atrial fibrillation
GERD
Tunneled right IJ catheter
Plan:
Plan for dialysis tomorrow home unit
cleared for discharge from renal standpoint
SARTHAK on dialysis
Anticipate continued readmission in the future for refusal of dialysis at the outpatient unit
he is currently stable from a dialysis standpoint and could return to [place].
-
-
Date of Service: December 23, 2023
CC / HPI / ROS
-
Chief Complaint:
ESRD
History of Present Illness:
tolerated HD yesterday
BP stable
right shoulder pain
hgb low stable 7.5
Review of Systems:
no CP/SOB
Labs
-
Labs:
WBC 5.4 10^3/uL (4.8-10.8) 12/22/23 06:03
RBC 2.68 10^6/uL (4.70-6.10) L 12/22/23 06:03
Hgb 7.5 g/dL (13.0-18.0) L 12/22/23 06:03
Hct 24.1 % (39.0-52.0) L 12/22/23 06:03
Plt Count 485 10^3/uL (130-400) H 12/22/23 06:03
Sodium 135 mmol/L (135-145) 12/22/23 06:03
Potassium 5.0 mmol/L (3.5-5.1) 12/22/23 06:03
Chloride 96 mmol/L (98-107) L 12/22/23 06:03
Carbon Dioxide 24 mmol/L (22-30) 12/22/23 06:03
BUN 64 mg/dl (9-20) H 12/22/23 06:03
Creatinine 5.0 mg/dL (0.7-1.3) H* 12/22/23 06:03
eGFR 12.03 12/22/23 06:03
Glucose 88 mg/dl (70-99) 12/22/23 06:03
Calcium 9.0 mg/dl (8.4-10.2) 12/22/23 06:03
Albumin 3.1 g/dl (3.5-5.0) L 12/19/23 17:00
Physical Exam
-
Vital Signs:
Vital Signs
Temp Pulse Resp BP Pulse Ox
97.7 F 88 18 144/93 99
12/23/23 06:59 12/23/23 06:59 12/23/23 06:59 12/23/23 06:59 12/23/23 06:59
Cardiovascular:: Regular rate and rhythm
Respiratory:: Bilateral: Coarse
Lung Excursion:: Normal
Abdomen:: Nontender and Soft
Bowel Sounds:: Normal
Extremity Edema:: None: Bilateral:
== END 2023-12-23 13:13 | DRG 682 ==
LOC: 3 WEST ACU 18:14
PROVIDERS: ADMITTING PHYSICIAN Internal Medicine; ATTENDING PHYSICIAN Internal Medicine; CONSULT PHYSICIAN Specialist; EMERGENCY PHYSICIAN Emergency Medicine; FAMILY PHYSICIAN Internal Medicine
PROC: 5A1D70Z Performance of Urinary Filtration, Intermittent, Less than 6 Hours Per Day (ICD-10-PCS; 2023-12-20)
DX: I12.0 Hypertensive chronic kidney disease with stage 5 chronic kidney disease or end stage renal disease (principal); N18.6 End stage renal disease; E87.20 Acidosis, unspecified; E11.22 Type 2 diabetes mellitus with diabetic chronic kidney disease; L89.152 Pressure ulcer of sacral region, stage 2; L89.302 Pressure ulcer of unspecified buttock, stage 2; D63.1 Anemia in chronic kidney disease; I95.89 Other hypotension; K21.9 Gastro-esophageal reflux disease without esophagitis; I48.0 Paroxysmal atrial fibrillation; I25.10 Atherosclerotic heart disease of native coronary artery without angina pectoris; Z91.158 Patient's noncompliance with renal dialysis for other reason; Z99.2 Dependence on renal dialysis; Z89.511 Acquired absence of right leg below knee; Z79.01 Long term (current) use of anticoagulants; Z79.82 Long term (current) use of aspirin; Z79.84 Long term (current) use of oral hypoglycemic drugs
CPT/HCPCS: 80048; 80053; 85025; 85027; 87070; 93005; 99284; 99406; G0257; J2916; J2997; P9047; Q5106

== ENCOUNTER 2023-12-31 19:41 | Inpatient (IN) | payer MEDICARE, OTHER, SELFPAY ==
[2023-12-31 15:10] VITALS: BP 152/102
--- NOTE | 2023-12-31 15:22 | ED.GENMED ---
History of Present Illness
General
Chief Complaint: Abnormal Lab Value
Source: patient and fdc
Exam Limitations: none
Time Seen by Provider: 12/31/23 15:08
Nursing documentation reviewed up to this point in time: agreed with
History of Present Illness
History of Present Illness:
Patient to eD from [facility]. Has been refusing dialysis at [facility]. States he is unhappy there and is refusing further dialysis treatments at facility. Has missed the past 3 appointments He does not have any other complaints. Brought to ED
via EMS
Past History
Past History
ED Past Medical History: GERD, HTN, NIDDM, Renal failure (hemodyalysis), Other (Anemia) and Other (Metabolic encephalopathy, hyponatremia)
ED Past Surgical History: Orthopedic (Laminectomy, R BKA)
Social History
Tobacco: Non-smoker
Alcohol: None
Drug: None
Personal:
Living: fdc
Review of Systems
Review of Systems
Allergies reviewed?: Yes
All Other Systems: ROS reviewed and negative except as documented in HPI and ROS
Constitutional: Reports fatigue
EENT: Reports no symptoms
Respiratory: Reports no symptoms
Cardiac: Reports no symptoms
ABD/GI: Reports no symptoms
: Reports no symptoms
Musculoskeletal: Reports no symptoms
Skin: Reports other (6.5x3.5 wound right stump - open to air. States 'someone' comes to [facility] for wound care but does not know what the wound care is)
Neurological: Reports weakness
Psychiatric: Reports no symptoms
Phy Exam
General Physical Exam
General Presentation: no apparent distress
General age: appears older than age
General Skin: warm
General Habitus: normal
General Mental: alert
General Hydration: appears well hydrated
Cardiovascular Exam
Cardiovascular Exam: regular rate/rhythm and no edema
Pulmonary Exam
Pulmonary Exam: lungs clear and no respiratory distress
Gastrointestinal Exam
Gastrointestinal Exam: normal bowel sounds, non tender, soft and no organomegaly
Neurological Exam
Neurological Exam: alert, oriented x3, no motor deficits, no sensory deficits and speech normal
Musculoskeletal Exam
Musculoskeletal Exam: full ROM
Skin Exam
Skin Exam: normal color and other (6.5x3.5 wound right stump. Dry. No erythema.)
Psychiatric Exam
Psychiatric Exam: normal mood/affect
Course
Orders/Labs/Results
Orders:
Orders
12/31/23 Breakfast
Cholesterol Lowering
At Your Request: Full Participation
Fluid Restriction: 1440 mL/day (48 oz)
Cholesterol Lowering: Sodium, 2 Gram
Potassium, 2 gram
12/31/23 15:38
Complete Blood Count/With Diff Urgent
Comprehensive Metabolic Panel Urgent
12/31/23 16:37
Case Management Consult ONCE
Case Management Consult: Other
Comment: Efrain martinez. Refusing dialysis at facility. Here 12/18 for same
12/31/23 16:47
Electrocardiogram (*1) Urgent
Reason for Study: Other
Other Reason for Exam: CRF, K5.7
EKG- Treatment ONCE
12/31/23 16:48
Sodium Zirconium Cyclosilicate [Lokelma] 10 gram PO NOW STA
12/31/23 19:27
Admit/Transfer Patient As Directed
Co-Sign Provider:
Level of Care: Inpatient admission
Assign to:: Telemetry
Physician / Group: [email or web address]
Diagnosis: Mised HD, volume overload
Reason for Telemetry: Other
Other Reason for Telemetry: Hyperkalemia
Date to Stop Telemetry: 01/02/24
Time to Stop Telemetry: 11:00
Reason for Hospitalization: Missed HD
Expected length of stay greater than two midnights?: Yes
ELOS- Estimated Length of Stay in days: 3
I certify the patient meets the requirements for IP care: Yes
PRN Pain Medication Management As Directed
May give lesser potent ordered pain med per pt: Yes
preference::
Protocol:: Medication orders for pain may be administered in a
manner that supports deferring to patient preference
when the pt is:
- Requesting an ordered lesser potent pain medication.
Least to most potent pain medications are defined
as: acetaminophen < NSAID < tramadol < opioids
(morphine, oxycodone, hydromorphone).
- Requesting a lesser dose of the same medication IF
ORDERED.
- Requesting a less intrusive route of administration
if both routes are prescribed by the provider (PO <
IV).
12/31/23 19:30
Code Status As Directed
Resuscitation Status: Full Code
12/31/23 19:55
Bisacodyl [Dulcolax] 10 mg RECTAL [id number] PRN
Docusate W/Senna [Senokot-S] 1 tablet PO BIDPRN PRN
Docusate W/Senna [Senokot-S] 2 tablet PO [id number] PRN
HYDROmorphone [Dilaudid] 4 mg PO [id number] PRN
Midodrine [ProAmatine] 2.5 mg PO Q8HPRN PRN
Polyethylene Glycol Powder [Miralax] 17 grams PO DAILYPRN PRN
12/31/23 19:55
NEPHROLOGY CONSULT Routine
Consulting Provider: Tyrese Dunn V.
Was physician already notified: Yes
Reason for consult: Missed HD
Activity As Directed
Activity Level: With Assistance
Intake/ Output As Directed
Frequency: Per unit guidelines
Pneumatic Compression Sleeves As Directed
Type: Knee high
Vital Signs As Directed
Frequency: Per unit guidelines
Weight As Directed
Frequency: Daily
DX Deep Vein Thrombosis Video Routine
12/31/23 20:00
Apixaban [Eliquis] 5 mg PO BID
Famotidine [Pepcid] 20 mg PO Q48H
Metoprolol Xl [Toprol Xl] 50 mg PO BID
Pantoprazole [Protonix] 40 mg PO BID
12/31/23 20:23
Lactulose [Duphalac/Chronulac] 20 grams PO [id number] PRN
12/31/23 22:00
Acetaminophen [Tylenol] 1,000 mg PO TID
12/31/23 23:30
Potassium Urgent
Comment: draw 4 hours after Lokelma administered
01/01/24 05:50
Basic Metabolic Panel IN AM
Complete Blood Count/No Diff IN AM
01/01/24 08:00
Aspirin Chewable [Low Strength Aspirin] 81 mg PO DAILY
Cholecalciferol (Vitamin D3) [VITAMIN D3 (cholecalciferol)] 25 mcg PO DAILY
Collagenase [Santyl Ointment] See Dose Instructions TOPICAL DAILY
Lidocaine [Lidocaine 4% Patch] 1 patch TOPICAL DAILY
Apply Lidocaine patch(s) to:: Rt shoulder
01/01/24 10:00
Sodium Zirconium Cyclosilicate [Lokelma] 10 gram PO TuTh@1000
Sodium Zirconium Cyclosilicate [Lokelma] 5 gram PO TuTh@1000
01/02/24 11:00
DC Protocol for Telemetry ONCE
01/02/24 18:00
Gabapentin [Neurontin] 100 mg PO MoWeFr@1800
Abnormal Lab Results
12/31/23
15:38
RBC 2.69 L 10^6/uL
(4.70-6.10)
Hgb 7.5 L g/dL
(13.0-18.0)
Hct 24.7 L %
(39.0-52.0)
MCHC 30.4 L g/dL
(33.0-37.0)
RDW 17.5 H %
(11.5-14.5)
Plt Count 437 H 10^3/uL
(130-400)
Abs Immat Gran (auto) 0.1 H 10^3/uL
(0-0.05)
Absolute Lymphs (auto) 1.0 L 10^3/uL
(1.2-3.4)
Absolute Monos (auto) 1.0 H 10^3/uL
(0.1-0.6)
Immature Gran % 1.1 H %
(0-0.5)
Lymphocytes % 16.9 L %
(20.5-51.1)
Monocytes % 15.8 H %
(1.7-9.3)
Potassium 5.7 H mmol/L
(3.5-5.1)
Carbon Dioxide 16 L mmol/L
(22-30)
BUN 90 H mg/dl
(9-20)
Creatinine 6.8 H* mg/dL
(0.7-1.3)
Alkaline Phosphatase 159 H U/L
(38-126)
Albumin 3.1 L g/dl
(3.5-5.0)
12/31/23 15:38
12/31/23 15:38
Vital Signs
Initial and Last Documented VS:
Initial Vital Signs
Temp Pulse Resp Pulse Ox
97.6 F 86 20 94
12/31/23 15:07 12/31/23 15:07 12/31/23 15:07 12/31/23 15:07
Last Documented Vital Signs
Temp Pulse Resp BP Pulse Ox
97.5 F 96 17 144/94 99
01/02/24 15:09 01/02/24 15:09 01/02/24 15:09 01/02/24 15:09 01/02/24 15:09
MDM/Problems Addressed
Differential Diagnosis Includes:
Patient to ED requesting dialysis. He resides at [facility]. Is very verbal that he hates the facilty and he is refusing to have dialysis performed at site. He was here on 12/18 with same complaint. Nephrology and case management consults
placed. Admitted to hospitalist service.
*Critical Care Note
Total Time (30-74mins, 75-104mins- exclusive of procedures): Not Applicable
ED Attending Note
-
Portions of this chart may have been created with voice recognition software.� Occasional wrong word or��sound alike� substitutions may have occurred due to the inherent limitations of voice recognition software.
Discharge Plan
Departure
Patient Disposition: Admit
Date of Disposition: 12/31/23
Time of Disposition: 16:46
Presentation/result/management discussed w/ accepting MD/DO: Hospitalist
Patient with high blood pressure during this ER visit?: Yes
Condition: Fair
Covid-19: Not Applicable
Discharge Problem:
Chronic renal failure
Interventions
Interventions:
*Risk Screen - Suicide Last Done: 12/31/23 15:05
*General Assessment Last Done: 12/31/23 15:05
*Neglect/Abuse Screening Last Done: 12/31/23 15:05
ED- Fall Risk Assessment Last Done: 12/31/23 19:47
*ED COVID-19 Vaccine History Last Done: 12/31/23 21:36
*Nursing Disposition Last Done: 12/31/23 19:47
Discharge Date and Time
Discharge Date/Time: 12/31/23 19:50
[2023-12-31 15:54] LABS: % Basophils 1.5 % (0-2); % Eosinophils 2.8 % (0-6); % Immature Granulocytes 1.1 % (0-0.5); % Lymphocytes 16.9 % (20.5-51.1); % Monocytes 15.8 % (1.7-9.3); % Neutrophils 61.9 % (42.2-75.2); Absolute Basophils 0.1 10^3/uL (0-0.2); Absolute Eosinophils 0.2 10^3/uL (0-0.7); Absolute Immature Granulocytes 0.1 10^3/uL (0-0.05); Absolute Neutrophils 3.8 10^3/uL (1.4-6.5); Hematocrit 24.7 % (39.0-52.0); Hemoglobin 7.5 g/dL (13.0-18.0); Mean Corp Hgb Conc. 30.4 g/dL (33.0-37.0); Mean Corpuscular Hgb 27.9 pg (27.0-31.0); Mean Corpuscular Volume 91.8 fL (80.0-94.0); Nucleated Red Blood Cells % 0 % (-); Platelet Count 437 10^3/uL (130-400); Red Blood Cell Count 2.69 10^6/uL (4.70-6.10); Red Cell Dist. Width 17.5 % (11.5-14.5); White Blood Cell Count 6.1 10^3/uL (4.8-10.8)
[2023-12-31 16:02] VITALS: BP 132/98
[2023-12-31 16:14] LABS: ALT (SGPT) < 10 U/L (0-50); AST (SGOT) 20 U/L (17-59); Albumin 3.1 g/dl (3.5-5.0); Alkaline Phosphatase 159 U/L (38-126); Blood Urea Nitrogen 90 mg/dl (9-20); Calcium 8.9 mg/dl (8.4-10.2); Carbon Dioxide 16 mmol/L (22-30); Chloride 100 mmol/L (98-107); Glucose 97 mg/dl (70-99); Potassium 5.7 mmol/L (3.5-5.1); Sodium 136 mmol/L (135-145); Total Bilirubin 0.8 mg/dl (0.2-1.3); Total Protein 6.5 g/dl (6.3-8.2); eGFR 8.32
[2023-12-31] MEDS: LOKELMA 10 GRAM PO (16:53)
--- NOTE | 2023-12-31 17:57 | HPS.HSE ---
Family Physician
-
Family Physician: Vinnie Barbosa
Chief Complaint
-
missed HD
History of Present Illness
HPI
68M Res of [facility] , HX ESRD on HD (MWF) HX frequent refusal of HD BiB EMS seen at ER
- missed last 3 session of HD
- ongoing issues of noncompliance with OP HD .
- He request HD at the hospital , compliance with HD as inpatient
- He gained 11.2 kg ( about 24- 25lbs) over 8 days since he was DC'd on 12/23/23
- States he is unhappy there and is refusing further dialysis treatments at facility.
Medical History
Past Medical History
Past Medical History: Reports Other (ESRD on hemodialysis, Friday, Friday, Friday, prior uremic encephalopathy, hypertension, diabetes, right BKA, PAD, CAD, paroxysmal atrial fibrillation, hypertension, anemia of chronic disease, lumbar
osteomyelitis/discitis of L2-L4, epidural abscess of L1 to sacrum status post laminectomy, MSSA b)
Past Surgical History: Reports Orthopedic (R BKA)
Social History
Tobacco: Other
Alcohol: Occasional
Living: Half-Way
Family History
Family History: Not pertinent
Allergies / Home Medications
Allergies reflects when Allergies were last updated in [facility].
Home Medications with original date entered in [facility]
Allergy/Medication List:
Allergies
Allergy/AdvReac Type Severity Reaction Status Date / Time
No Known Allergies Allergy Verified 12/19/23 16:59
Home Medications
acetaminophen 500 mg tablet 1,000 mg PO TID Pain 06/29/23
cholecalciferol (vitamin D3) 25 mcg (1,000 unit) tablet 25 mcg PO DAILY Supplement 06/29/23
lidocaine 4 % topical patch 1 patch topical DAILY right shoulder 06/29/23
famotidine 20 mg tablet 20 mg PO Q48H #0 tabs 07/26/23
pantoprazole 40 mg tablet,delayed release 40 mg PO BID #0 tabs 07/26/23
midodrine 2.5 mg tablet 2.5 mg PO Q8HPRN PRN sbp<100 08/22/23
apixaban 5 mg tablet (Eliquis) 5 mg PO BID #60 tabs 08/29/23
metoprolol succinate 50 mg tablet,extended release 24 hr 50 mg PO BID #60 tabs 08/29/23
sodium zirconium cyclosilicate 10 gram oral powder packet (Lokelma) 10 g PO MOWE Electrolyte Repletion 10/22/23
sodium zirconium cyclosilicate 5 gram oral powder packet (Lokelma) 5 g PO MOWE Electrolyte Repletion 10/22/23
aspirin 81 mg chewable tablet 81 mg PO DAILY Blood Clot Prevention/Tx 11/21/23
gabapentin 100 mg capsule 100 mg PO MOWEFR@0800 neuropathic pain 11/21/23
hydromorphone 4 mg tablet 4 mg PO [id number] PRN chronic pain 11/21/23
sennosides 8.6 mg-docusate sodium 50 mg tablet (Stool Softener-Laxative) 2 tab PO [id number] PRN constipation 11/21/23
Review of Systems
-
Constitutional: Reports No Symptoms
Physical Exam
Vital Signs
Vital Signs
Temp Pulse Resp Pulse Ox
97.6 F 94 18 98
12/31/23 15:07 12/31/23 15:08 12/31/23 15:08 12/31/23 15:08
Physical Exam
General: Well Developed, Well Nourished, No Apparent Distress, Comfortable, Conversant and Appears Chronically Ill
HEENT: NormoCephalic, Moist mucous membranes and Atraumatic
Respiratory: Clear and Non Labored Respirations; No Accessory Resp Muscle Use
Cardiac: S1/S2 and Regular Rhythm; No Murmur or Rub
GI: Soft, Non Tender, Non Distended and Normal Bowel Sounds; No Organomegaly
Rectal: Deferred by Provider
Musculoskeletal: No Clubbing, No Cyanosis, No Edema and Other (R BKA)
Skin: No Rash
Neuro: Awake and Alert
Psych: Calm and Intact Judgment/Insight (impaired )
Laboratory Results
-
12/31/23 15:38
Laboratory Results
Total Bilirubin 0.8 mg/dl (0.2-1.3) 12/31/23 15:38
AST 20 U/L (17-59) 12/31/23 15:38
ALT < 10 U/L (0-50) 12/31/23 15:38
Alkaline Phosphatase 159 U/L (38-126) H 12/31/23 15:38
Data Reviewed
-
Lab Data: Labs Reviewed by me
Old Records: Reviewed
Impression/Plan
-
Reviewed VS: Afebrile HR ( 110--> 88) stable BP
Wt: 85.5 Kg(12/22) --> 96.7kg (12/31/23) Gained 11.2 kg ( about 24- 25lbs)
12/23/23
12/31/23
Actual Weight 85.531 kg 96.7 kg
Abnormal Lab Results
12/31/23
15:38
RBC 2.69 L
Hgb 7.5 L
Hct 24.7 L
MCHC 30.4 L
RDW 17.5 H
Plt Count 437 H
Abs Immat Gran (auto) 0.1 H
Absolute Lymphs (auto) 1.0 L
Absolute Monos (auto) 1.0 H
Immature Gran % 1.1 H
Lymphocytes % 16.9 L
Monocytes % 15.8 H
Potassium 5.7 H
Carbon Dioxide 16 L
BUN 90 H
Creatinine 6.8 H*
Alkaline Phosphatase 159 H
Albumin 3.1 L
Last hospitalist admission:
DATE OF ADMISSION: 12/19/2023 - DATE OF DISCHARGE: 12/23/2023
DISCHARGE DIAGNOSIS: Missed HD , HX ESRD on HD .
ASSESSMENT & PLAN
Missed last 3 sessions of HD at local facility
Hyperkalemia @5.7 s/p Na Zirconium 10 gm
Metabolic acidosis
HX ESRD on HD : Friday, Friday, Friday
- ongoing issues of non compliance with OP HD
- reports unhappy there and is refusing further dialysis treatments at facility
- He request HD at the hospital , compliance with HD as inpatient
- He gained 11.2 kg ( about 24- 25lbs) over 8 days since he was DC'd on 12/23/23
- c/w CLIMBING GUIDE Lokelma
- SARTHAK on dialysis
- Renal consulted
Anemia; ACDz: baseline is 4 5- 7s
- current Hgb 6.8
- Stable HD state
HX PAD status post right lower extremity stent
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
Stump infection with open wound prior suture border 08/22/2023
Right BKA
- c/w CLIMBING GUIDE ASA
CAD
- on ASA
Paroxysmal AF
- on CLIMBING GUIDE BB and Eliquis
Chronic hypotension on midodrine.
Full-thickness right BKA wound present on arrival and sacral and buttocks stage II pressure injuries.
left upper forehead bruise, banging his head while getting out of bed at SNF.
HX GERD
Anticipate continued readmission in the future for refusal of dialysis at the outpatient unit
DVT Px: SQH
Full code
Obs MS
[2023-12-31 20:27] VITALS: BP 154/89
[2023-12-31 20:28] VITALS: BMI 26.7
--- NOTE | 2023-12-31 20:30 | PTCARENOTE ---
Pt arrived to 3W from ED via stretcher. Pt pullover from stretcher to bed. Vitals obtained and stable. Pt oriented to room, call mullen within reach. Will continue to monitor.
[2023-12-31] MEDS: TOPROL XL 50 MG PO (21:34)
[2023-12-31] MEDS: PROTONIX 40 MG PO (21:34)
[2023-12-31] MEDS: PEPCID 20 MG PO (21:34)
[2023-12-31] MEDS: ELIQUIS 5 MG PO (21:34)
[2023-12-31] MEDS: TYLENOL 1000 MG PO (21:34)
[2023-12-31 22:15] VITALS: BP 121/81
[2024-01-01] VITALS (7 sets, daily range): BP systolic 140–159; BP diastolic 81–103
[2024-01-01 03:34] LABS: Potassium 5.4 mmol/L (3.5-5.1)
[2024-01-01 06:25] LABS: Hematocrit 24.4 % (39.0-52.0); Hemoglobin 7.3 g/dL (13.0-18.0); Mean Corp Hgb Conc. 29.9 g/dL (33.0-37.0); Mean Corpuscular Hgb 27.8 pg (27.0-31.0); Mean Corpuscular Volume 92.8 fL (80.0-94.0); Platelet Count 461 10^3/uL (130-400); Red Blood Cell Count 2.63 10^6/uL (4.70-6.10); Red Cell Dist. Width 17.5 % (11.5-14.5); White Blood Cell Count 7.1 10^3/uL (4.8-10.8)
[2024-01-01 06:51] LABS: Blood Urea Nitrogen 91 mg/dl (9-20); Calcium 8.9 mg/dl (8.4-10.2); Carbon Dioxide 17 mmol/L (22-30); Chloride 100 mmol/L (98-107); Estimated Creatinine Clearance 12 ml/min; Glucose 84 mg/dl (70-99); Potassium 5.4 mmol/L (3.5-5.1); Sodium 137 mmol/L (135-145); eGFR 7.64
[2024-01-01] MEDS: VITAMIN D3 (cholecalciferol) 25 MCG PO (07:25)
[2024-01-01] MEDS: PROTONIX 40 MG PO ×2 (07:25→21:44)
[2024-01-01] MEDS: TYLENOL 1000 MG PO ×2 (07:25→21:44)
[2024-01-01] MEDS: LOW STRENGTH ASPIRIN 81 MG PO (07:25)
[2024-01-01] MEDS: ELIQUIS 5 MG PO ×2 (07:25→21:44)
[2024-01-01] MEDS: TOPROL XL PO (07:26)
[2024-01-01] MEDS: SANTYL OINTMENT TOPICAL (07:26)
--- NOTE | 2024-01-01 07:45 | PTCARENOTE ---
upon entering room, pt not wearing bus monitor. upon asking to place monitor, pt refused stated he does not want the bus monitor with no clear reason. pt educated on importance of monitor especial with missing dialysis and having abnormal
lab values. despite education and assurance, pt refused to allow this Rn to place bus monitor. MD Maher made aware via T.T. at 0733 and communicated back for this Rn to document refusal. pt getting ready for HD.
--- NOTE | 2024-01-01 08:30 | W.CON.NEPH ---
Consultation
-
Date/Time Consultation Requested: 01/01/2024 730 AM
Date/Time Consultation Performed: 01/01/2024 830
Requesting Provider: Dr. Maher
Performing Provider: Dr. Dunn
Reason for Consultation: End-stage renal disease
Medical History
-
Chief Complaint: Weakness, body aches
History of Present Illness:
68-year-old male from [facility] with PAD s/p right BKA, ESRD on MWF HD through right IJ HD catheter, chronic hyperkalemia on Lokelma, Pafib on eliquis, chronic pain on hydromorphone, gabapentin, lumbar osteomyelitis/discitis of
L2-L4, epidural abscess of L1 to sacrum status post laminectomy, who also has h/o non compliance of HDs sent from [place] for missing HD for 1 week.
Patient says that he refused dialysis for the last week because of conflict with the dialysis nurse at [facility].
He was just in the hospital from December 07 to December 11 for also refusing dialysis for 1 week though at that point he had said it was because he did not felt well for having had COVID. He was then readmitted to the hospital on 12/19/2023 through
12/23/2023 for the exact same reasons of refusing dialysis at his dialysis facility.
Past Medical History
Paroxysmal A-fib new onset 08/24/2023
Discitis
Diverticulosis
Hypertension
GERD
Depression
End-stage renal disease
Osteomyelitis
Peripheral vascular disease
Type 2 diabetes
C. difficile colitis
GI bleed
Past Medical History: Other
Past Surgical History: Other (laminectomy, Rt BKA)
Social History
Tobacco: Smoker (Currently smoking 3 cigarettes a day for the last 4 months prior 1 pack a day 54 years)
Alcohol: Occasional (Every other week prior to July 2023)
Drug: None
Personal: Single
Living: Shelter
Employment: Disabled
Family History
Mother and father reports history of CHF/NC mother age 64 father age 66 patient with 2 sisters healthy, 3 brothers with history of mental illness
Family History: Not Pertinent
Allergies / Home Medications
Allergy/AdvReac Type Severity Reaction Status Date / Time
No Known Allergies Allergy Verified 12/19/23 16:59
�Medication �Instructions �Recorded �Confirmed �Type
acetaminophen 500 mg tablet 1,000 mg PO TID Pain 06/29/23 12/31/23 History
cholecalciferol (vitamin D3) 25 25 mcg PO DAILY Supplement 06/29/23 12/31/23 History
mcg (1,000 unit) tablet
lidocaine 4 % topical patch 1 patch topical DAILY right 06/29/23 12/31/23 History
shoulder
famotidine 20 mg tablet 20 mg PO Q48H #0 tabs 07/26/23 12/31/23 Rx
pantoprazole 40 mg tablet,delayed 40 mg PO BID #0 tabs 07/26/23 12/31/23 Rx
release
midodrine 2.5 mg tablet 2.5 mg PO Q8HPRN PRN sbp<100 08/22/23 12/31/23 History
apixaban 5 mg tablet (Eliquis) 5 mg PO BID #60 tabs 08/29/23 12/31/23 Rx
metoprolol succinate 50 mg 50 mg PO BID #60 tabs 08/29/23 12/31/23 Rx
tablet,extended release 24 hr
sodium zirconium cyclosilicate 10 10 g PO MOWE Electrolyte Repletion 10/22/23 12/31/23 History
gram oral powder packet (Lokelma)
sodium zirconium cyclosilicate 5 5 g PO MOWE Electrolyte Repletion 10/22/23 12/31/23 History
gram oral powder packet (Lokelma)
aspirin 81 mg chewable tablet 81 mg PO DAILY Blood Clot 11/21/23 12/31/23 History
Prevention/Tx
gabapentin 100 mg capsule 100 mg PO MOWEFR@0800 neuropathic 11/21/23 12/31/23 History
pain
hydromorphone 4 mg tablet 4 mg PO [id number] PRN chronic pain 11/21/23 12/31/23 History
sennosides 8.6 mg-docusate sodium 2 tab PO [id number] PRN constipation 11/21/23 12/31/23 History
50 mg tablet (Stool
Softener-Laxative)
collagenase clostridium histo. 250 1 applic topical DAILY #90 grams 12/23/23 12/31/23 Rx
unit/gram topical ointment (Santyl)
lactulose 10 gram/15 mL oral 20 g PO [id number] PRN no bm 3 days 12/31/23 12/31/23 History
solution (Enulose)
Review of Systems
-
History Source: Patient
All other systems: Negative unless noted
Respiratory: No Symptoms
Cardiac: No Symptoms
Musculoskeletal: Other (Right BKA)
Physical Exam
Vital Signs
Vital Signs
Temp Pulse Resp BP Pulse Ox
97.5 F 84 18 159/103 98
01/01/24 07:10 01/01/24 07:10 01/01/24 07:10 01/01/24 07:10 01/01/24 07:10
Lab Results
WBC 7.1 10^3/uL (4.8-10.8) 01/01/24 05:50
RBC 2.63 10^6/uL (4.70-6.10) L 01/01/24 05:50
Hgb 7.3 g/dL (13.0-18.0) L 01/01/24 05:50
Hct 24.4 % (39.0-52.0) L 01/01/24 05:50
Plt Count 461 10^3/uL (130-400) H 01/01/24 05:50
Sodium 137 mmol/L (135-145) 01/01/24 05:50
Potassium 5.4 mmol/L (3.5-5.1) H 01/01/24 05:50
Chloride 100 mmol/L (98-107) 01/01/24 05:50
Carbon Dioxide 17 mmol/L (22-30) L 01/01/24 05:50
BUN 91 mg/dl (9-20) H 01/01/24 05:50
Creatinine 7.3 mg/dL (0.7-1.3) H* 01/01/24 05:50
eGFR 7.64 01/01/24 05:50
Glucose 84 mg/dl (70-99) 01/01/24 05:50
Calcium 8.9 mg/dl (8.4-10.2) 01/01/24 05:50
Albumin 3.1 g/dl (3.5-5.0) L 12/31/23 15:38
Physical Exam
General: AOx3, Nontoxic , NAD
HEENT: PERRL, EOMI, Anicteric, Conjunctivae Clear, Ear/Nose Intact, Hearing Normal, Oropharynx Clear/Moist, Dentition Intact, Facial Symmetry, Neck Supple, Neck: Trachea Midline, No JVD and No Thyromegaly, no Bruits
Respiratory: Coarse to auscultation bilaterally with normal lung exersion
Cardiac: S1/S2 and Regular Rate/Rhythm
Breast: Deferred by me
Abdomen: Soft, Nontender, Nondistended, Normal Bowel Sounds and No Hepatosplenomegaly
Rectal: Deferred by Provider
Genito-urinary: No Costovertebral Tenderness
Extremities: No Clubbing, No Cyanosis and right BKA
Skin: No Rash or open lesions
Neuro: Nonfocal/Grossly Intact, CN II-XII (Intact) and Strength (Musculoskeletal exam 5 out of 5 both upper and lower extremities)
Hematologic/Lymphatic: No Cervical Lymphadenopathy, No Submandibular Lymphadenopathy and No Supraclavicular Lymphadenopathy
Psych: Mood/afflect pleasant, Insight/judgement good and Appropriate
Vascular: plus 1 pedal and radial pulses, IJ catheter
Right upper extremity AV fistula with good thrill and bruit
Data Reviewed
-
Labs: Labs Reviewed by me (BMP CBC)
Old Records: Reviewed (Consult reviewed from early December 2023 and discharge summary)
Assessment/Plan
-
Impression:
Noncompliance with HD
Anemia
met acidosis
ESRD on hemodialysis Friday, Friday, Friday
PAD status post right lower extremity stent
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
Stump infection with open wound prior suture border 08/22/2023
Right BKA
Paroxysmal atrial fibrillation
GERD
Tunneled right IJ catheter
Plan:
Hd today and tomorrow
german for anemia
bp should improve with u/f
Fluid restrict
patient non compliance is out of control
--- NOTE | 2024-01-01 08:57 | W.PN.NEPH.HD ---
Assessment
-
Patient seen on dialysis
Systolic blood pressure 140 at current U/F
HD again tomorrow
Utilizing tunneled catheter as AV fistula function has been poor
Progress Note - Hemodialysis
-
Date of Service: January 01, 2024
Duration: 45 minutes and 3 hours
Potassium Bath: 2
Calcium Bath: 2.5
Opti-Dialyzer: 160
Ultrafiltration: Other (3 to 4 kg ast tolerated)
Blood Flow: 400
Dialysate Flow: 600
Heparin: none
EPO: 10K
--- NOTE | 2024-01-01 10:24 | W.PN.HOSP.TC ---
Today's Communication/Plan
-
HD per Renal
Assessment / Plan
Assessment / Plan
ASSESSMENT & PLAN
Missed last 3 sessions of HD at local facility
Hyperkalemia @5.7 s/p Na Zirconium 10 gm
Metabolic acidosis
HX ESRD on HD : Friday, Friday, Friday
- ongoing issues of non compliance with OP HD
- reports unhappy there and is refusing further dialysis treatments at facility
- He request HD at the hospital , compliance with HD as inpatient
- He gained 11.2 kg ( about 24- 25lbs) over 8 days since he was DC'd on 12/23/23
- c/w FIELD SPEC Lokelma
- SARTHAK on HD
- appreciate renal consult
Anemia; ACDz:
- current Hgb 6.8
- Stable HD state
HX PAD status post right lower extremity stent
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
Stump infection with open wound prior suture border 08/22/2023
Right BKA
- c/w FIELD SPEC ASA
CAD
- on ASA
Paroxysmal AF
- on FIELD SPEC BB and Eliquis
Chronic hypotension on midodrine.
Full-thickness right BKA wound present on arrival and sacral and buttocks stage II pressure injuries.
left upper forehead bruise, banging his head while getting out of bed at SNF.
HX GERD
Anticipate continued readmission in the future for refusal of dialysis at the outpatient unit
DVT Px: SQH
Full code
Obs MS
Anticipated Discharge: 24 - 48 hours
Subjective/Interval History
-
Date of Service: January 01, 2024
seen on HD
no new complaints
Objective Data
-
Labs:
Laboratory Results
01/01/24 01/01/24
02:57 05:50
WBC 7.1
Hgb 7.3 L
Hct 24.4 L
Plt Count 461 H
Sodium 137
Potassium 5.4 H 5.4 H
Chloride 100
Carbon Dioxide 17 L
BUN 91 H
Creatinine 7.3 H*
Glucose 84
Calcium 8.9
Vital Signs:
Vital Signs
Temp Pulse Resp BP Pulse Ox
97.5 F 84 18 159/103 98
01/01/24 07:10 01/01/24 07:10 01/01/24 07:10 01/01/24 07:10 01/01/24 07:10
I&O
12/31/23 01/01/24 01/02/24
06:59 06:59 06:59
Intake Total 240 / 240
Output Total 300 / 300 200 / 200
Balance -60 / -60 -200 / -200
Review of Systems
-
History Source: Patient
All other systems: Reviewed and negative
Physical Exam
-
General: No Apparent Distress
HEENT: Normocephalic and Atraumatic
Respiratory: Negative Wheezes
Cardiac: Regular Rhythm and S1/S2
GI: Soft and Nontender
Musculoskeletal: Other (right BKA with wound)
Neuro: AO x 3
Psych: Calm
Data Reviewed
-
Diagnostic Radiology: Report Reviewed by me
Labs: Labs Reviewed by me
--- NOTE | 2024-01-01 10:25 | WOUNDNOTE ---
WON RN note: Patient admitted with chronic renal failure.
See H&P for complete history. Patient resides at [facility].
PMH: ESRD on HD, HTN, DM, R BKA 07/22/[address] Mccloud, OR debridement of R BKA 08/25/[address] Gutierrez , PAD, CAD
Wound Location and type/assessment: Patient last seen 12/22/23 for same full thickness R BKA wound, pink mixed mostly with crusty yellow dry base. Santyl already on order. Patient frequently removes dressing and itches wound after being instructed
not to do this. Patient followed after dialysis, able to turn self to side. Sacrum intact, old ulcers on buttocks have healed. L leg and heel intact.
Appetite: good.
Pressure redistribution devices in place: [employer] bed. Patient can turn self in bed and moves his legs on own. Pillow placed under R BKA and L leg.
Plan: R BKA dressing changed using Santyl, adaptic and dry gauze with Medipore tape. Can add jagjit wrap to secure if patient keeps removing dressing. Instructed patient pressure injury prevention measures.
Will confirm orders with Dr. Maher and updated RN Aaron.
Care plan to be updated and will follow as needed.
Patient to follow up with Dr. Gutierrez.
[2024-01-01] MEDS: RETACRIT 10000 UNITS IV (10:38)
[2024-01-01] MEDS: LOKELMA 5 GRAM PO (12:13)
[2024-01-01] MEDS: LOKELMA 10 GRAM PO (12:13)
[2024-01-01] MEDS: SANTYL OINTMENT 1 APPLIC TOPICAL (12:16)
[2024-01-01] MEDS: CATHFLO/ACTIVASE 2 MG INTRACATH (12:38)
--- NOTE | 2024-01-01 14:55 | CM ---
Patient resides @ [facility]
CM spoke with facility liaison, Amy, via phone; and reported that patient is bedridden and requires total care; is incontinent; and able to feed himself
Facility Liaison also reported that several referrals for an alternative LTC placement have been sent on the patient's behalf
Plan: discharge to LTC when medically stable and bed is available
[2024-01-01] MEDS: TYLENOL PO (15:29)
[2024-01-01] MEDS: TOPROL XL 50 MG PO (21:44)
[2024-01-02 07:10] VITALS: BP 156/102
[2024-01-02] MEDS: VITAMIN D3 (cholecalciferol) 25 MCG PO (07:31)
[2024-01-02] MEDS: ELIQUIS 5 MG PO ×2 (07:31→20:47)
[2024-01-02] MEDS: PROTONIX 40 MG PO ×2 (07:31→20:48)
[2024-01-02] MEDS: TYLENOL 1000 MG PO ×2 (07:31→20:50)
[2024-01-02] MEDS: LOW STRENGTH ASPIRIN 81 MG PO (07:31)
[2024-01-02] MEDS: SANTYL OINTMENT 1 APPLIC TOPICAL (07:31)
[2024-01-02] MEDS: TOPROL XL 50 MG PO ×2 (07:33→20:50)
[2024-01-02 09:12] VITALS: BMI 25.4
--- NOTE | 2024-01-02 10:41 | W.PN.HOSP.TC ---
Today's Communication/Plan
-
HD per renal
further discussions with CM if can find new HD facility
Assessment / Plan
Assessment / Plan
ASSESSMENT & PLAN
Missed last 3 sessions of HD at local facility
Hyperkalemia @5.7 s/p Na Zirconium 10 gm
Metabolic acidosis
HX ESRD on HD : Friday, Friday, Friday
- ongoing issues of non compliance with OP HD
- reports unhappy there and is refusing further dialysis treatments at facility - need a new facility
- He request HD at the hospital , compliance with HD as inpatient
- He gained 11.2 kg ( about 24- 25lbs) over 8 days since he was DC'd on 12/23/23
- c/w COATING INSPECTOR Lokelma
- SARTHAK on HD
- appreciate renal consult - HD per renal
Anemia; ACDz:
HX PAD status post right lower extremity stent
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
Stump infection with open wound prior suture border 08/22/2023
Right BKA
- c/w COATING INSPECTOR ASA
CAD
- on ASA
Paroxysmal AF
- on COATING INSPECTOR BB and Eliquis
Chronic hypotension on midodrine.
Full-thickness right BKA wound present on arrival and sacral and buttocks stage II pressure injuries.
left upper forehead bruise, banging his head while getting out of bed at SNF.
HX GERD
Anticipate continued readmission in the future for refusal of dialysis at the outpatient unit
DVT Px: SQH
Full code
Obs MS
Anticipated Discharge: 24 - 48 hours
Subjective/Interval History
-
Date of Service: January 02, 2024
feeling okay
he states he would do dialysis at other centers
Objective Data
-
Labs:
Laboratory Results
01/02/24
07:00
Hgb Pending
Hct Pending
Sodium Pending
Potassium Pending
Chloride Pending
Carbon Dioxide Pending
Vital Signs:
Vital Signs
Temp Pulse Resp BP Pulse Ox
97.4 F 107 16 156/102 97
01/02/24 07:10 01/02/24 07:33 01/02/24 07:10 01/02/24 07:33 01/02/24 07:10
I&O
01/01/24 01/02/24 01/03/24
06:59 06:59 06:59
Intake Total 240 / 240 770 / 770
Output Total 300 / 300 1075 / 1075
Balance -60 / -60 -305 / -305
Review of Systems
-
History Source: Patient
All other systems: Reviewed and negative
Physical Exam
-
General: No Apparent Distress
HEENT: Normocephalic and Atraumatic
Respiratory: Negative Wheezes
Cardiac: Regular Rhythm and S1/S2
GI: Soft and Nontender
Musculoskeletal: Other (right BKA with wound)
Neuro: AO x 3
Psych: Calm
Data Reviewed
-
Diagnostic Radiology: Report Reviewed by me
Labs: Labs Reviewed by me
[2024-01-02 11:05] VITALS: BP 156/93
--- NOTE | 2024-01-02 11:55 | PTCARENOTE ---
MD hanson made aware pt continues to refuse vehicle monitor technician despite explaining importance of its' use.
[2024-01-02 13:10] LABS: Hematocrit 24.3 % (39.0-52.0); Hemoglobin 7.6 g/dL (13.0-18.0)
--- NOTE | 2024-01-02 13:10 | W.PN.NEPH.HD ---
Assessment
-
Seen on HD. no complaints. VSS, access ok
OP HD planning
Progress Note - Hemodialysis
-
Date of Service: January 02, 2024
Duration: 45 minutes and 3 hours
Potassium Bath: 2
Calcium Bath: 2.5
Opti-Dialyzer: 160
Ultrafiltration: Other (4kg)
Blood Flow: 400
Dialysate Flow: 600
Heparin: 0
EPO: [id number] units
[2024-01-02 13:22] LABS: Carbon Dioxide 22 mmol/L (22-30); Chloride 98 mmol/L (98-107); Potassium 4.2 mmol/L (3.5-5.1); Sodium 134 mmol/L (135-145)
[2024-01-02] MEDS: RETACRIT 10000 UNITS IV (13:25)
--- NOTE | 2024-01-02 13:34 | CM ---
CM spoke with [facility] liaison; she reported that their social secretary is unable to find LTC facility with onsite HD to accept patient.
They will continue to look for an alternative facility for him.
When stable for discharge, patient will have to return to [facility]
[2024-01-02 15:09] VITALS: BP 144/94
[2024-01-02] MEDS: TYLENOL PO (15:56)
[2024-01-02] MEDS: HEPARIN 4000 UNITS INTRACATH (16:32)
[2024-01-02] MEDS: PEPCID 20 MG PO (20:47)
[2024-01-02 23:00] VITALS: BP 133/93
[2024-01-03 06:00] VITALS: BMI 24.1
[2024-01-03 07:40] VITALS: BP 147/95
[2024-01-03] MEDS: LOW STRENGTH ASPIRIN 81 MG PO (10:28)
[2024-01-03] MEDS: VITAMIN D3 (cholecalciferol) 25 MCG PO (10:28)
[2024-01-03] MEDS: PROTONIX 40 MG PO ×2 (10:28→20:55)
[2024-01-03] MEDS: ELIQUIS 5 MG PO ×2 (10:28→20:54)
[2024-01-03] MEDS: TOPROL XL 50 MG PO ×2 (10:29→20:55)
[2024-01-03] MEDS: TYLENOL 1000 MG PO ×3 (10:29→20:55)
[2024-01-03] MEDS: SANTYL OINTMENT 1 APPLIC TOPICAL (10:36)
--- NOTE | 2024-01-03 10:40 | W.PN.NEPH.PH ---
Today's Communication / Plan
-
HD friday
Assessment/Plan
-
Impression:
Noncompliance with HD
Anemia
met acidosis
ESRD on hemodialysis Friday, Friday, Friday
PAD status post right lower extremity stent
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
Stump infection with open wound prior suture border 08/22/2023
Right BKA
Paroxysmal atrial fibrillation
GERD
Tunneled right IJ catheter
Plan:
HD friday
[place] for anemia on HD
will need new placement. He will refuse HD at [facility] (perceived wrong) if sent back and be readmitted after not receiving HD for a week. This cycle will continue. I am not certain that a mediation between him and the dialysis unit will
change his mind either
-
-
Date of Service: January 03, 2024
CC / HPI / ROS
-
Chief Complaint:
ESRD
History of Present Illness:
tolerated HD yesterday
BP stable high
Hgb stable low 7.6
Review of Systems:
no CP/SOB
Labs
-
Labs:
WBC 7.1 10^3/uL (4.8-10.8) 01/01/24 05:50
RBC 2.63 10^6/uL (4.70-6.10) L 01/01/24 05:50
Hgb 7.6 g/dL (13.0-18.0) L 01/02/24 12:58
Hct 24.3 % (39.0-52.0) L 01/02/24 12:58
Plt Count 461 10^3/uL (130-400) H 01/01/24 05:50
Sodium 134 mmol/L (135-145) L 01/02/24 12:58
Potassium 4.2 mmol/L (3.5-5.1) 01/02/24 12:58
Chloride 98 mmol/L (98-107) 01/02/24 12:58
Carbon Dioxide 22 mmol/L (22-30) 01/02/24 12:58
BUN 91 mg/dl (9-20) H 01/01/24 05:50
Creatinine 7.3 mg/dL (0.7-1.3) H* 01/01/24 05:50
eGFR 7.64 01/01/24 05:50
Glucose 84 mg/dl (70-99) 01/01/24 05:50
Calcium 8.9 mg/dl (8.4-10.2) 01/01/24 05:50
Albumin 3.1 g/dl (3.5-5.0) L 12/31/23 15:38
Physical Exam
-
Vital Signs:
Vital Signs
Temp Pulse Resp BP Pulse Ox
97.8 F 107 18 147/95 98
01/03/24 07:40 01/03/24 07:40 01/03/24 07:40 01/03/24 07:40 01/03/24 07:40
Cardiovascular:: Regular rate and rhythm
Respiratory:: Bilateral: Coarse
Lung Excursion:: Normal
Abdomen:: Nontender and Soft
Bowel Sounds:: Normal
Extremity Edema:: None: Bilateral:
--- NOTE | 2024-01-03 11:28 | W.PN.HOSP.TC ---
Addendum entered and electronically signed by Maria Isabel Maher MD 01/03/24 11:33:
hold Eliquis after this evening's dose - per vascular
Original Note:
Today's Communication/Plan
-
debridement by vascular on Friday of right stump wound
Assessment / Plan
Assessment / Plan
ASSESSMENT & PLAN
Missed last 3 sessions of HD at local facility
Hyperkalemia @5.7 s/p Na Zirconium 10 gm
Metabolic acidosis
HX ESRD on HD : Friday, Friday, Friday
- ongoing issues of non compliance with OP HD
- reports unhappy there and is refusing further dialysis treatments at facility - facility is attempting to find another place for him but in meantime would have to return
- BRAND MANAGER Lokelma
- SARTHAK on HD
- appreciate renal consult - HD per renal
Anemia; ACDz:
HX PAD status post right lower extremity stent
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
Stump infection with open wound prior suture border 08/22/2023
Right BKA
-plan is for debridement on Friday01/05/24 - discussed with vascular - will perform while patient is here
CAD
- on ASA
Paroxysmal AF
- on BRAND MANAGER BB and Eliquis - hold pre-op
Chronic hypotension on midodrine.
Full-thickness right BKA wound present on arrival and sacral and buttocks stage II pressure injuries.
left upper forehead bruise, banging his head while getting out of bed at SNF.
HX GERD
DVT Px: Eliquis
Full code
Obs MS
Anticipated Discharge: > 48 hours
Subjective/Interval History
-
Date of Service: January 03, 2024
no new complaints
Objective Data
-
Vital Signs:
Vital Signs
Temp Pulse Resp BP Pulse Ox
97.8 F 107 18 147/95 98
01/03/24 07:40 01/03/24 07:40 01/03/24 07:40 01/03/24 07:40 01/03/24 07:40
I&O
01/02/24 01/03/24 01/04/24
06:59 06:59 06:59
Intake Total 770 / 770 820 / 820
Output Total 1075 / 1075 775 / 775
Balance -305 / -305 45 / 45
Review of Systems
-
History Source: Patient
All other systems: Reviewed and negative
Physical Exam
-
General: No Apparent Distress
HEENT: Normocephalic and Atraumatic
Respiratory: Negative Wheezes
Cardiac: Regular Rhythm and S1/S2
GI: Soft and Nontender
Musculoskeletal: Other (right BKA with wound)
Neuro: AO x 3
Psych: Calm
Data Reviewed
-
Diagnostic Radiology: Report Reviewed by me
Labs: Labs Reviewed by me
--- NOTE | 2024-01-03 11:39 | PTCARENOTE ---
patient frequently calls out. This time, patient wants to 'speak to Dr. ricardo' about his diet. He said, 'Who ordered this diet? This is bull shift, I'll order out!' even when explaining to him why it is ordered and the problems that could occur with
his kidneys by not following ordered diet. Dr. Villegas made aware. Per Dr. Villegas, patient is not in a position to demand anything considering he has been routinely skipping a week of dialysis here and there out of spite. Also, patient has been on
dialysis long enough that he can�t say no one�s explained it to him before. will continue to monitor.
[2024-01-03 16:00] VITALS: BP 149/97
[2024-01-03 23:00] VITALS: BP 148/95
[2024-01-04 06:00] VITALS: BMI 24.5
[2024-01-04 08:19] VITALS: BP 153/93
[2024-01-04] MEDS: TOPROL XL 50 MG PO (09:25)
[2024-01-04] MEDS: LOW STRENGTH ASPIRIN 81 MG PO (09:26)
[2024-01-04] MEDS: TYLENOL 1000 MG PO (09:26)
[2024-01-04] MEDS: PROTONIX 40 MG PO (09:26)
[2024-01-04] MEDS: VITAMIN D3 (cholecalciferol) 25 MCG PO (09:27)
[2024-01-04] MEDS: SANTYL OINTMENT 1 APPLIC TOPICAL (09:28)
--- NOTE | 2024-01-04 09:41 | W.PN.HOSP.TC ---
Today's Communication/Plan
-
see plan
Assessment / Plan
Assessment / Plan
ASSESSMENT & PLAN
Missed last 3 sessions of HD at local facility
Hyperkalemia
Metabolic acidosis
HX ESRD on HD : Friday, Friday, Friday
- ongoing issues of non compliance with OP HD
- reports unhappy there and is refusing further dialysis treatments at facility - facility is attempting to find another place for him but in meantime would have to return per CM
- LEATHER LACER Lokelma
- SARTHAK on HD
- appreciate renal consult - HD per renal
- *plan was to keep for BKA debridement procedure tomorrow but now patient wants to go back to [place] today - confirming plan OK with CM, updating vascular
Anemia; ACDz:
HX PAD status post right lower extremity stent
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
Stump infection with open wound prior suture border 08/22/2023
Right BKA
-plan was for debridement on Friday01/05/24 - now patient wants to leave today and reschedule - confirmed OK with Vascular, confirming OK for DC by CM
CAD
- on ASA
Paroxysmal AF
- on LEATHER LACER BB and Eliquis - hold pre-op (last dose Friday evening) - timing discussed with Vascular --> resume Eliquis if patient leaves today
Chronic hypotension on midodrine.
Full-thickness right BKA wound present on arrival and sacral and buttocks stage II pressure injuries.
left upper forehead bruise, banging his head while getting out of bed at SNF.
HX GERD
DVT Px: Eliquis on hold pre-op; SCD left leg
Full code
Anticipated Discharge: Within 24 hours
Subjective/Interval History
-
Date of Service: January 04, 2024
patient now wants to go back to [place] today
Objective Data
-
Vital Signs:
Vital Signs
Temp Pulse Resp BP Pulse Ox
97.6 F 105 17 153/93 98
01/04/24 08:19 01/04/24 09:25 01/04/24 08:19 01/04/24 09:25 01/04/24 08:19
I&O
01/03/24 01/04/24 01/05/24
06:59 06:59 06:59
Intake Total 820 / 820 1160 / 1160
Output Total 775 / 775 725 / 725
Balance 45 / 45 435 / 435
Review of Systems
-
History Source: Patient
All other systems: Reviewed and negative
Physical Exam
-
General: No Apparent Distress
HEENT: Normocephalic and Atraumatic
Respiratory: Negative Wheezes
Cardiac: Regular Rhythm and S1/S2
GI: Soft and Nontender
Musculoskeletal: Other (right BKA with wound)
Neuro: AO x 3
Psych: Calm
Data Reviewed
-
Diagnostic Radiology: Report Reviewed by me
Labs: Labs Reviewed by me
--- NOTE | 2024-01-04 10:28 | W.PN.NEPH.PH ---
Today's Communication / Plan
-
Dialysis tomorrow
Assessment/Plan
-
Impression:
Noncompliance with HD
Anemia
met acidosis
ESRD on hemodialysis Friday, Friday, Friday
PAD status post right lower extremity stent
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
Stump infection with open wound prior suture border 08/22/2023
Right BKA
Paroxysmal atrial fibrillation
GERD
Tunneled right IJ catheter
Plan:
HD friday
SARTHAK for anemia on HD
will need new placement. He will refuse HD at [facility] (perceived wrong) if sent back and will be readmitted after not receiving HD for a week. This cycle will continue.
-
-
Date of Service: January 04, 2024
CC / HPI / ROS
-
Chief Complaint:
ESRD
History of Present Illness:
tolerated HD Friday
BP stable high
Hgb stable low 7.6
Review of Systems:
no CP/SOB
Labs
-
Labs:
WBC 7.1 10^3/uL (4.8-10.8) 01/01/24 05:50
RBC 2.63 10^6/uL (4.70-6.10) L 01/01/24 05:50
Hgb 7.6 g/dL (13.0-18.0) L 01/02/24 12:58
Hct 24.3 % (39.0-52.0) L 01/02/24 12:58
Plt Count 461 10^3/uL (130-400) H 01/01/24 05:50
Sodium 134 mmol/L (135-145) L 01/02/24 12:58
Potassium 4.2 mmol/L (3.5-5.1) 01/02/24 12:58
Chloride 98 mmol/L (98-107) 01/02/24 12:58
Carbon Dioxide 22 mmol/L (22-30) 01/02/24 12:58
BUN 91 mg/dl (9-20) H 01/01/24 05:50
Creatinine 7.3 mg/dL (0.7-1.3) H* 01/01/24 05:50
eGFR 7.64 01/01/24 05:50
Glucose 84 mg/dl (70-99) 01/01/24 05:50
Calcium 8.9 mg/dl (8.4-10.2) 01/01/24 05:50
Albumin 3.1 g/dl (3.5-5.0) L 12/31/23 15:38
Physical Exam
-
Vital Signs:
Vital Signs
Temp Pulse Resp BP Pulse Ox
97.6 F 105 17 153/93 98
01/04/24 08:19 01/04/24 09:25 01/04/24 08:19 01/04/24 09:25 01/04/24 08:19
Cardiovascular:: Regular rate and rhythm
Respiratory:: Bilateral: Coarse
Lung Excursion:: Normal
Abdomen:: Nontender and Soft
Bowel Sounds:: Normal
Extremity Edema:: None: Bilateral:
--- NOTE | 2024-01-04 10:59 | CM ---
Patient from [facility] with Hx ESRD on HD, Full-thickness right BKA wound. Room air. Seen by wound care nurse.
Met with patient who agrees to returning to [facility] today by ambulance. IMM completed.
Spoke with Amy, [facility]; they are able to accept the patient back today. The phone for report [phone], fax [phone]. Referral updated in [facility] with wound care nurse notes.
Plan [facility] today by ambulance.
--- NOTE | 2024-01-04 11:03 | W.DS.TRANS ---
DC Summary - Extruding Press Adjuster
-
Discharge Instructions:
Discharge Diagnosis/Procedures missed hemodialysis sessions
Diet 2 Gram Sodium,Restrict fluids to 48 oz
Activity As tolerated
Driving Restrictions No driving
Bathing Restrictions None
Other Services PT,OT
Instructions:
Stand-Alone Forms:
Changes to Home Medications: Yes
Discharge Medications:
DC Medications w/original date entered in [employer]
acetaminophen 500 mg tablet 1,000 mg PO TID Pain 06/29/23
cholecalciferol (vitamin D3) 25 mcg (1,000 unit) tablet 25 mcg PO DAILY Supplement 06/29/23
lidocaine 4 % topical patch 1 patch topical DAILY right shoulder 06/29/23
famotidine 20 mg tablet 20 mg PO Q48H #0 tabs 07/26/23
pantoprazole 40 mg tablet,delayed release 40 mg PO BID #0 tabs 07/26/23
midodrine 2.5 mg tablet 2.5 mg PO Q8HPRN PRN sbp<100 08/22/23
apixaban 5 mg tablet (Eliquis) 5 mg PO BID #60 tabs 08/29/23
metoprolol succinate 50 mg tablet,extended release 24 hr 50 mg PO BID #60 tabs 08/29/23
sodium zirconium cyclosilicate 10 gram oral powder packet (Lokelma) 10 g PO MOWE Electrolyte Repletion 10/22/23
sodium zirconium cyclosilicate 5 gram oral powder packet (Lokelma) 5 g PO MOWE Electrolyte Repletion 10/22/23
aspirin 81 mg chewable tablet 81 mg PO DAILY Blood Clot Prevention/Tx 11/21/23
gabapentin 100 mg capsule 100 mg PO MOWEFR@0800 neuropathic pain 11/21/23
sennosides 8.6 mg-docusate sodium 50 mg tablet (Stool Softener-Laxative) 2 tab PO [id number] PRN constipation 11/21/23
collagenase clostridium histo. 250 unit/gram topical ointment (Santyl) 1 applic topical DAILY #90 grams 12/23/23
lactulose 10 gram/15 mL oral solution (Enulose) 20 g PO [id number] PRN no bm 3 days 12/31/23
hydromorphone 4 mg tablet 4 mg PO [id number] PRN chronic pain #4 tabs 01/04/24
mupirocin 2 % topical ointment 1 applic intranasal ONCE #15 grams 01/04/24
Home Medication Changes
addition of mupirocin
Pending Results: No
[2024-01-04] MEDS: ELIQUIS 5 MG PO (11:34)
--- NOTE | 2024-01-04 13:36 | W.DCSUMMARY ---
Discharge Summary
Discharge Data
Date of Admission: 12/31/23
Date of Discharge: 01/04/24
-
Pending Results: No
Hospital Course
Discharging Physician : Dr. Maria Isabel Maher
Disposition : SNF
Primary care physician : Dr. Vinnie Barbosa
Principal Discharge diagnosis : missed hemodialysis sessions
Hospital Course :
Mr. Dustin Hairston is a 68 yo man with hx ESRD on HD, HTN, DM, PAD s/p right BKA 07/22/23 with post-op course complicated by infection and poor wound healing with plans for outpatient debridement presents to the ER after missing last 3 HD sessions. He
presented fluid overloaded with hyperkalemia. He was admitted to medicine with Nephrology consulting and received HD here, now back on outpatient schedule. He had plans for upcoming outpatient wound debridement with Vascular surgery and initially
plan was for him to stay for that procedure but on Wednesday 01/03 he was adamant about returning back to [facility]. Patient now stating he will be accepting HD there to prevent future admissions. Vascular surgery team updated that his
debridement is to be rescheduled.
Time spent on discharge was 31 minutes.
Important imaging findings :
Procedure findings :
Discharge Plan
-
Patient Disposition: Fdc/SNF
Discharge Diagnosis/Procedures: missed hemodialysis sessions
Diet: 2 Gram Sodium and Restrict fluids to 48 oz
Activity: As tolerated
Driving Restrictions: No driving
Bathing Restrictions: None
Other Services: PT and OT
Activity Restrictions/Additional Instructions:
Wound Care Instructions
R BKA: clean with saline, Santyl to slough, adaptic, dry dressing daily.
Call Vascular Surgery to rescheduled debridement right BKA
Referrals:
Vinnie Barbosa MD [Family Provider] - in less than 1 week
Prescriptions:
New
mupirocin 2 % Ointment
1 applic intranasal ONCE Qty: 15 0RF
Continued
lidocaine 4 % Adhesive Patch,Medicated
1 patch TOPICAL DAILY
acetaminophen 500 mg Tablet
1,000 mg PO TID
cholecalciferol (vitamin D3) 25 mcg (1,000 unit) Tablet
25 mcg PO DAILY
famotidine 20 mg Tablet
20 mg PO Q48H Qty: 0 0RF
pantoprazole 40 mg Tablet,Delayed Release (Dr/Ec)
40 mg PO BID Qty: 0 0RF
midodrine 2.5 mg Tablet
2.5 mg PO Q8HPRN PRN (Reason: sbp<100)
Eliquis 5 mg Tablet
5 mg PO BID Qty: 60 0RF
metoprolol succinate 50 mg Tablet Extended Release 24 Hr
50 mg PO BID Qty: 60 0RF
Lokelma 5 gram Powder In Packet
5 g PO MOWE
Lokelma 10 gram Powder In Packet
10 g PO MOWE
aspirin 81 mg Tablet,Chewable
81 mg PO DAILY
sennosides-docusate sodium [Stool Softener-Laxative] 8.6-50 mg tablet
2 tab PO [id number] PRN (Reason: constipation)
gabapentin 100 mg capsule
100 mg PO MOWEFR@0800
Santyl 250 unit/gram Ointment
1 applic topical DAILY Qty: 90 0RF
Rx Instructions:
apply to R BKA wound
lactulose [Enulose] 10 gram/15 mL Solution
20 g PO [id number] PRN (Reason: no bm 3 days)
hydromorphone 4 mg tablet
4 mg PO [id number] PRN (Reason: chronic pain) Qty: 4 0RF
Discharge Orders:
Discharge Patient (As Directed); Ordered 01/04/24
Ordered By: Maria Isabel Maher
Discharge Date and Time
Print Language: INDONESIAN
[2024-01-04 15:17] VITALS: BP 148/90
[2024-01-04 15:27] VITALS: BP 172/96
[2024-01-05 02:27] LABS: Hepatitis B Surface Antigen Negative (Negative)
== END 2024-01-04 15:37 | DRG 640 ==
LOC: 3 WEST ACU 19:41
PROVIDERS: Nurse Practitioner; ADMITTING PHYSICIAN Internal Medicine; ATTENDING PHYSICIAN Student in an Organized Health Care Education/Training Program; CONSULT PHYSICIAN Specialist; EMERGENCY PHYSICIAN Emergency Medicine; FAMILY PHYSICIAN Internal Medicine
PROC: 5A1D70Z Performance of Urinary Filtration, Intermittent, Less than 6 Hours Per Day (ICD-10-PCS; 2024-01-01)
DX: E87.5 Hyperkalemia (principal); N18.6 End stage renal disease; I12.0 Hypertensive chronic kidney disease with stage 5 chronic kidney disease or end stage renal disease; D63.1 Anemia in chronic kidney disease; E11.22 Type 2 diabetes mellitus with diabetic chronic kidney disease; E11.51 Type 2 diabetes mellitus with diabetic peripheral angiopathy without gangrene; F32.A Depression, unspecified; Z91.158 Patient's noncompliance with renal dialysis for other reason; L89.152 Pressure ulcer of sacral region, stage 2; L89.322 Pressure ulcer of left buttock, stage 2; L89.312 Pressure ulcer of right buttock, stage 2; E87.20 Acidosis, unspecified; Z99.2 Dependence on renal dialysis; F17.210 Nicotine dependence, cigarettes, uncomplicated; G89.29 Other chronic pain; I95.89 Other hypotension; I48.0 Paroxysmal atrial fibrillation; K21.9 Gastro-esophageal reflux disease without esophagitis; K59.00 Constipation, unspecified; I25.10 Atherosclerotic heart disease of native coronary artery without angina pectoris; S00.83XA Contusion of other part of head, initial encounter; W22.8XXA Striking against or struck by other objects, initial encounter; Z79.01 Long term (current) use of anticoagulants; Z79.82 Long term (current) use of aspirin; Z79.84 Long term (current) use of oral hypoglycemic drugs; Z86.19 Personal history of other infectious and parasitic diseases; Z87.19 Personal history of other diseases of the digestive system; Z87.39 Personal history of other diseases of the musculoskeletal system and connective tissue; Z86.61 Personal history of infections of the central nervous system; Z89.511 Acquired absence of right leg below knee
CPT/HCPCS: 80048; 80051; 80053; 84132; 85014; 85018; 85025; 85027; 87070; 87340; 93005; 99284; G0257; J2997; P9047; Q5106

== ENCOUNTER 2024-01-07 16:58 | Inpatient (IN) | payer MEDICARE, OTHER, SELFPAY ==
[2024-01-07] VITALS (8 sets, daily range): BP systolic 137–160; BP diastolic 94–104; BMI 25.8
--- NOTE | 2024-01-07 13:21 | ED.GENMED ---
History of Present Illness
General
Chief Complaint: Change in Mental Status
Source: patient
Exam Limitations: none
Time Seen by Provider: 01/07/24 12:22
Nursing documentation reviewed up to this point in time: agreed with
History of Present Illness
History of Present Illness:
pt is a 68 y/o M with h/o ESRD
from [facility]
frequently refuses dialysis at his NH and comes here
pt last was here 12/30-01/03 for same
and has been here many times previously with the same
he is well known to the nephrologists here
he has no complaitns other than being hungry
pt does not feel overly short of breath
he denies ches tpain
he has also had ongoing issue with chronic BKA wound poor healing
Past History
Past History
ED Past Medical History: GERD, HTN, NIDDM, Renal failure (hemodyalysis), Other (Anemia) and Other (Metabolic encephalopathy, hyponatremia)
ED Past Surgical History: Orthopedic (Laminectomy, R BKA)
Social History
Tobacco: Non-smoker
Alcohol: None
Drug: None
Personal:
Living: fpc
Review of Systems
Review of Systems
Allergies reviewed?: Yes
All Other Systems: Not applicable
Phy Exam
Physical Exam
Physical Exam:
GENERAL: Alert , in no apparent distress
EYE: pupils equal and reactive
NECK: Supple
ENT: o/p clr, mmm.
CARDIAC: Regular rate and rhythm .+ murmur
LUNGS: end exp wheezes b/l bases; no sob, no resp distress, no cough
ABDOMEN: Soft, without focal tenderness, no r/g, no cvat, normal bowel sounds
NEUROLOGICAL: Alert and oriented, no focal neuro deficits
SKIN: Warm and dry, skin intact.
MUSCULOSKELETAL: R BKA, left leg pitting 1+ edema
PSYCH: Normal and appropriate interaction.
Course
Orders/Labs/Results
Orders:
Orders
01/07/24 12:50
Electrocardiogram (*1) Urgent
Reason for Study: Shortness of Breath
EKG- Treatment ONCE
CR Chest - 2 Views Urgent
Comment:
Reason For Exam: refusing dialysis
01/07/24 13:01
Complete Blood Count/With Diff Urgent
Comprehensive Metabolic Panel Urgent
NT-proBNP Urgent
Abnormal Lab Results
01/07/24
13:01
RBC 2.76 L 10^6/uL
(4.70-6.10)
Hgb 7.8 L g/dL
(13.0-18.0)
Hct 25.2 L %
(39.0-52.0)
MCHC 31.0 L g/dL
(33.0-37.0)
RDW 20.4 H %
(11.5-14.5)
Abs Immat Gran (auto) 0.1 H 10^3/uL
(0-0.05)
Absolute Lymphs (auto) 1.1 L 10^3/uL
(1.2-3.4)
Absolute Monos (auto) 1.4 H 10^3/uL
(0.1-0.6)
Immature Gran % 1.1 H %
(0-0.5)
Lymphocytes % 11.9 L %
(20.5-51.1)
Monocytes % 15.8 H %
(1.7-9.3)
Sodium 131 L mmol/L
(135-145)
Chloride 97 L mmol/L
(98-107)
Carbon Dioxide 12 L* mmol/L
(22-30)
BUN 76 H mg/dl
(9-20)
Creatinine 6.4 H* mg/dL
(0.7-1.3)
Total Bilirubin 1.6 H mg/dl
(0.2-1.3)
AST 144 H U/L
(17-59)
Alkaline Phosphatase 164 H U/L
(38-126)
Total Protein 6.2 L g/dl
(6.3-8.2)
Albumin 3.0 L g/dl
(3.5-5.0)
01/07/24 13:01
01/07/24 13:01
Vital Signs
Initial and Last Documented VS:
Initial Vital Signs
Temp Pulse Resp BP Pulse Ox
97.6 F 103 20 143/104 99
01/07/24 11:52 01/07/24 11:52 01/07/24 11:52 01/07/24 11:52 01/07/24 11:52
Last Documented Vital Signs
Temp Pulse Resp BP Pulse Ox
97.6 F 106 18 143/104 99
01/07/24 11:52 01/07/24 12:45 01/07/24 12:45 01/07/24 11:52 01/07/24 12:45
MDM/Problems Addressed
Differential Diagnosis Includes:
esrd fluid overloaded; chf
MDM/Problems Addressed:
68 y/o M with h/o ESRD
from [facility] where he frequently refuses dialysis
pt is not overly subjectively SOB
but he is having some wheezing and fluid in LE
and cxr indep reviewed by me, shows new pleural effusion R lower lobe
no o2 requirement
d/w nephrology
will require admission for dialysis
k normal
*Critical Care Note
Total Time (30-74mins, 75-104mins- exclusive of procedures): Not Applicable
ED Attending Note
-
Portions of this chart may have been created with voice recognition software.� Occasional wrong word or��sound alike� substitutions may have occurred due to the inherent limitations of voice recognition software.
Discharge Plan
Departure
Patient Disposition: Admit
Date of Disposition: 01/07/24
Time of Disposition: 14:00
Admit to: Telemetry
Presentation/result/management discussed w/ accepting MD/DO: Hospitalist
Condition: Fair
Covid-19: Not Applicable
Discharge Problem:
Pleural effusion, End-stage renal disease (ESRD)
Prescriptions:
No Action
lidocaine 4 % Adhesive Patch,Medicated
1 patch TOPICAL DAILY
acetaminophen 500 mg Tablet
1,000 mg PO TID
cholecalciferol (vitamin D3) 25 mcg (1,000 unit) Tablet
25 mcg PO DAILY
famotidine 20 mg Tablet
20 mg PO Q48H Qty: 0 0RF
pantoprazole 40 mg Tablet,Delayed Release (Dr/Ec)
40 mg PO BID Qty: 0 0RF
midodrine 2.5 mg Tablet
2.5 mg PO Q8HPRN PRN (Reason: sbp<100)
Eliquis 5 mg Tablet
5 mg PO BID Qty: 60 0RF
metoprolol succinate 50 mg Tablet Extended Release 24 Hr
50 mg PO BID Qty: 60 0RF
Lokelma 5 gram Powder In Packet
5 g PO MOWE
Lokelma 10 gram Powder In Packet
10 g PO MOWE
aspirin 81 mg Tablet,Chewable
81 mg PO DAILY
sennosides-docusate sodium [Stool Softener-Laxative] 8.6-50 mg tablet
2 tab PO [id number] PRN (Reason: constipation)
gabapentin 100 mg capsule
100 mg PO MOWEFR@0800
Santyl 250 unit/gram Ointment
1 applic topical DAILY Qty: 90 0RF
Rx Instructions:
apply to R BKA wound
lactulose [Enulose] 10 gram/15 mL Solution
20 g PO [id number] PRN (Reason: no bm 3 days)
hydromorphone 4 mg tablet
4 mg PO [id number] PRN (Reason: chronic pain) Qty: 4 0RF
Referrals:
Vinnie Barbosa MD [Family Provider] -
Interventions
Interventions:
*General Assessment Last Done: 01/07/24 11:52
ED- Fall Risk Assessment Last Done: 01/07/24 12:50
ED- Pulmonary Assessment Last Done: 01/07/24 12:50
ED- Neurological Assessment Last Done: 01/07/24 12:50
ED- Cardiac Assessment Last Done: 01/07/24 12:50
Discharge Date and Time
Print Language: KOSOVAN
[2024-01-07 13:24] LABS: % Basophils 0.8 % (0-2); % Eosinophils 0.8 % (0-6); % Immature Granulocytes 1.1 % (0-0.5); % Lymphocytes 11.9 % (20.5-51.1); % Monocytes 15.8 % (1.7-9.3); % Neutrophils 69.6 % (42.2-75.2); Absolute Basophils 0.1 10^3/uL (0-0.2); Absolute Eosinophils 0.1 10^3/uL (0-0.7); Absolute Immature Granulocytes 0.1 10^3/uL (0-0.05); Absolute Lymphocytes 1.1 10^3/uL (1.2-3.4); Absolute Monocytes 1.4 10^3/uL (0.1-0.6); Absolute Neutrophils 6.4 10^3/uL (1.4-6.5); Hematocrit 25.2 % (39.0-52.0); Hemoglobin 7.8 g/dL (13.0-18.0); Mean Corpuscular Hgb 28.3 pg (27.0-31.0); Mean Corpuscular Volume 91.3 fL (80.0-94.0); Mean Platelet Volume 9.1 fL (7.4-10.4); Nucleated Red Blood Cells % 0 % (-); Platelet Count 362 10^3/uL (130-400); Red Blood Cell Count 2.76 10^6/uL (4.70-6.10); Red Cell Dist. Width 20.4 % (11.5-14.5); White Blood Cell Count 9.1 10^3/uL (4.8-10.8)
[2024-01-07 13:48] LABS: ALT (SGPT) 45 U/L (0-50); AST (SGOT) 144 U/L (17-59); Alkaline Phosphatase 164 U/L (38-126); Blood Urea Nitrogen 76 mg/dl (9-20); Calcium 8.4 mg/dl (8.4-10.2); Carbon Dioxide 12 mmol/L (22-30); Chloride 97 mmol/L (98-107); Glucose 84 mg/dl (70-99); Potassium 4.7 mmol/L (3.5-5.1); Sodium 131 mmol/L (135-145); Total Bilirubin 1.6 mg/dl (0.2-1.3); Total Protein 6.2 g/dl (6.3-8.2); eGFR 8.95
[2024-01-07 13:50] LABS: NT-proBNP > 27000 pg/ml
--- NOTE | 2024-01-07 14:13 | CM ---
Multiple halfway home referrals sent at the request of patient and current skilled facility.
Will need updated clinicals attached.
--- NOTE | 2024-01-07 15:00 | W.CON.NEPH ---
Consultation
-
Date/Time Consultation Requested: 01/07/2024 2 PM
Date/Time Consultation Performed: 01/07/2024 3 PM
Requesting Provider: Dr. Barton
Performing Provider: Dr. Villegas
Reason for Consultation: Hyponatremia
Medical History
-
Chief Complaint: Back pain
History of Present Illness:
68-year-old male from [facility] with PAD s/p right BKA, ESRD on MWF HD through right IJ HD catheter, chronic hyperkalemia on Lokelma, Pafib on eliquis, chronic pain on hydromorphone, gabapentin, lumbar osteomyelitis/discitis of
L2-L4, epidural abscess of L1 to sacrum status post laminectomy, who also has h/o non compliance of HDs sent from [place] for missing HD the last 2 days.
Patient says that he refused dialysis because of conflict with the dialysis nurse at [facility] that happened weeks ago.
He was recently in the hospital last week and had left because he was worried by his personal possessions at the retirement.
In the emergency room he complains of diffuse pain which is not new for him
Past Medical History
Paroxysmal A-fib new onset 08/24/2023
Discitis
Diverticulosis
Hypertension
GERD
Depression
End-stage renal disease
Osteomyelitis
Peripheral vascular disease
Type 2 diabetes
C. difficile colitis
GI bleed
Past Medical History: Other
Past Surgical History: Other (laminectomy, Rt BKA)
Social History
Tobacco: Smoker (Currently smoking 3 cigarettes a day for the last 4 months prior 1 pack a day 54 years)
Alcohol: Occasional (Every other week prior to July 2023)
Drug: None
Personal: Single
Living: Retirement
Employment: Disabled
Family History
Mother and father reports history of CHF/TN mother age 64 father age 66 patient with 2 sisters healthy, 3 brothers with history of mental illness
Family History: Not Pertinent
Allergies / Home Medications
Allergy/AdvReac Type Severity Reaction Status Date / Time
No Known Allergies Allergy Verified 01/07/24 11:52
�Medication �Instructions �Recorded �Confirmed �Type
acetaminophen 500 mg tablet 1,000 mg PO TID Pain 06/29/23 01/07/24 History
cholecalciferol (vitamin D3) 25 25 mcg PO DAILY Supplement 06/29/23 01/07/24 History
mcg (1,000 unit) tablet
lidocaine 4 % topical patch 1 patch topical DAILY right 06/29/23 01/07/24 History
shoulder
famotidine 20 mg tablet 20 mg PO Q48H #0 tabs 07/26/23 01/07/24 Rx
pantoprazole 40 mg tablet,delayed 40 mg PO BID #0 tabs 07/26/23 01/07/24 Rx
release
midodrine 2.5 mg tablet 2.5 mg PO Q8HPRN PRN sbp<100 08/22/23 01/07/24 History
apixaban 5 mg tablet (Eliquis) 5 mg PO BID #60 tabs 08/29/23 01/07/24 Rx
metoprolol succinate 50 mg 50 mg PO BID #60 tabs 08/29/23 01/07/24 Rx
tablet,extended release 24 hr
sodium zirconium cyclosilicate 10 10 g PO MOWE Electrolyte Repletion 10/22/23 01/07/24 History
gram oral powder packet (Lokelma)
sodium zirconium cyclosilicate 5 5 g PO MOWE Electrolyte Repletion 10/22/23 01/07/24 History
gram oral powder packet (Lokelma)
aspirin 81 mg chewable tablet 81 mg PO DAILY Blood Clot 11/21/23 01/07/24 History
Prevention/Tx
gabapentin 100 mg capsule 100 mg PO MOWEFR@0800 neuropathic 11/21/23 01/07/24 History
pain
sennosides 8.6 mg-docusate sodium 2 tab PO [id number] PRN constipation 11/21/23 01/07/24 History
50 mg tablet (Stool
Softener-Laxative)
collagenase clostridium histo. 250 1 applic topical DAILY #90 grams 12/23/23 01/07/24 Rx
unit/gram topical ointment (Santyl)
lactulose 10 gram/15 mL oral 20 g PO [id number] PRN no bm 3 days 12/31/23 01/07/24 History
solution (Enulose)
hydromorphone 4 mg tablet 4 mg PO [id number] PRN chronic pain 01/04/24 01/07/24 Rx
#4 tabs
Review of Systems
-
Diffuse chronic pain
No shortness of breath
All other systems: Negative unless noted
Physical Exam
Vital Signs
Vital Signs
Temp Pulse Resp BP Pulse Ox
97.6 F 106 18 143/104 99
01/07/24 11:52 01/07/24 12:45 01/07/24 12:45 01/07/24 11:52 01/07/24 12:45
Lab Results
WBC 9.1 10^3/uL (4.8-10.8) 01/07/24 13:01
RBC 2.76 10^6/uL (4.70-6.10) L 01/07/24 13:01
Hgb 7.8 g/dL (13.0-18.0) L 01/07/24 13:01
Hct 25.2 % (39.0-52.0) L 01/07/24 13:01
Plt Count 362 10^3/uL (130-400) D 01/07/24 13:01
Sodium 131 mmol/L (135-145) L 01/07/24 13:01
Potassium 4.7 mmol/L (3.5-5.1) 01/07/24 13:01
Chloride 97 mmol/L (98-107) L 01/07/24 13:01
Carbon Dioxide 12 mmol/L (22-30) L* 01/07/24 13:01
BUN 76 mg/dl (9-20) H 01/07/24 13:01
Creatinine 6.4 mg/dL (0.7-1.3) H* 01/07/24 13:01
eGFR 8.95 01/07/24 13:
Glucose 84 mg/dl (70-99) 01/07/24 13:
Calcium 8.4 mg/dl (8.4-10.2) 01/07/24 13:
Dhi-N-Dicircdywkj Pept > 82539 pg/ml 01/07/24 13:
Albumin 3.0 g/dl (3.5-5.0) L 01/07/24 13:01
Laboratory Tests
01/02/24
12:58
Hgb 7.6 L
Potassium 4.2
Physical Exam
Patient is awake alert oriented and in no distress. Mood and affect were pleasant, insight and judgment were good. Pupils are equal round and reactive to light, extraocular movements are intact, sclera were anicteric. Hearing was normal, ears and
nose are intact. Oropharynx was clear. Neck was supple with trachea midline and no thyromegaly. Heart was regular rate and rhythm without rubs. Lower extremities without edema. Lungs were clear to auscultation bilaterally and with normal
excursion. Abdomen was soft, nontender, with normal active bowel sounds, and no hepatosplenomegaly. Skin was without rash and with normal turgor.
Data Reviewed
-
Radiology: Image Personally Visualized and interpreted (Chest x-ray on 01/07/2024 by reading shows cardiomegaly small effusion)
Medical Tests (Nuc Med, Echo etc): Image Personally Visualized and interpreted (EKG on 01/07/2024 by my read shows atrial fibrillation lateral ST-T wave abnormalities)
Labs: Labs Reviewed by me
Old Records: Reviewed
Assessment/Plan
-
Impression:
Noncompliance with OP HD
Anemia
met acidosis
ESRD on hemodialysis Friday, Friday, Friday
PAD status post right lower extremity stent
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
Stump infection with open wound prior suture border 08/22/2023
Right BKA
Paroxysmal atrial fibrillation
GERD
Tunneled right IJ catheter
Plan:
HD tomorrow
[facility] for anemia on HD
will need new placement. He will refuse HD at [facility] (perceived wrong) if sent back and will be readmitted after not receiving HD for a week. This cycle will continue.
Pain management per primary team
--- NOTE | 2024-01-07 15:18 | HPS.HSE ---
Addendum entered and electronically signed by Kin Hernandez MD 01/07/24 22:16:
Attending Addendum-
I performed a history and physical exam of the patient and discussed his management with the resident. I reviewed the resident's note and agree with the documented findings and plan of care CC/HPI- presents from [facility] due to 'change in MS'
Patient awake and alery. 'I just want to be there anymore. I refused dialysis. I have pain all over ' Full 12 point ROS reviewed and negative except as documented Exam- vitals reviewed in EMR GEN- NAD heart irreg irreg lungs crackles at bases abd
soft NT ND ext RLE BKA poorly healing wound on stump
Plan:
# ESRD on hemodialysis Friday, Friday, Friday
- last documented HD 01/01 in hospital
- Nephrology consulted plan for dialysis tomorrow morning
- Continue Lokelma
- non compliance
# Hypervolemic Hyponatremia
- for HD/UF in am
- repeat BMP in am
# PAD s/p BKA
-Continue aspirin
# Chronic Anemia
- from ESRD
- t/c epo as OP
- cbc in am
# Wound on stump
- wound care
- not well taken care of
- may need surgical debridement
# Paroxysmal atrial fibrillation
-Continue Eliquis
-Continue metoprolol
# History of hypotension
-Continue midodrine
# Chronic Pain and opioid dependence
- cont Dilaudid as per OP regimen
- PDMP reviewed
# Tobacco Abuse
- advised to quit
# DM
- not on meds
- start SSI
Lumbar osteomyelitis/discitis of L2�3�4
Epidural abscess from L1 to sacrum postlaminectomy/26
History of psoas abscess
MSSA bacteremia
# GERD
-Continue Protonix, Pepcid
Full code
DVT prophylaxis-Eliquis
Renal diet
Dispo DC to [facility]
Patient consented to discuss, was alone, time spent explanation of advance directives, changes in health status, patient�s health care wishes if the patient becomes unable to make health decisions, goals of care, code status, and prognosis- 16
minutes
Time spent coordinating care, review of plan of care with resident, personally reviewed previous records in EMR, med rec, labs, radiology, d/w nursing, total time documented is exclusive of any additional time listed that was spent in advance care
planning discussion -� 75 minutes
Original Note:
Family Physician
-
Family Physician: Vinnie Barbosa
Chief Complaint
-
Missed hemodialysis
History of Present Illness
68-year-old male with past medical history of ESRD on HD (via right IJ) who was brought to the ED for missing HD the last 2 days. He is coming from [facility]. Patient has been admitted multiple times during the past month with the
same complaint (last admission 12/30 and discharged on 01/03). Apparently, he refuses dialysis at [facility] because of conflict with the dialysis nurse.
At the current time, he denies any nausea/ vomiting, abdominal pain, chest pain, palpitations, shortness of breath, fevers/chills. He denies feeling more drowsy. Denies headaches. His only complaint is generalized myalgia.
Initial labs in the ED show Hgb 7.8 (baseline), WBC & plt WNL, hyponatremia (131), metabolic acidosis, creatinine 6.4, BUN 76, transaminitis, and proBNP> 27,000. CXR shows mild to moderate pleural effusion on left side with right internal jugular
multilumen catheter in place.
PMH: PAD s/p R BKA, ESRD on HD (Friday, Friday, Friday), chronic hyperkalemia on Lokelma, paroxysmal Afib on Eliquis and metoprolol, chronic pain on hydromorphone and gabapentin, lumbar osteomyelitis/discitis of L2-L4, epidural abscess of L1 to
sacrum s/p laminectomy, GERD on famotidine, hypertension, diabetes type 2, HFpEF, anemia of chronic disease
PSH: Right BKA, Laminectomy
Medical History
Past Medical History
Past Medical History: Reports Other (See above)
Past Surgical History: Reports Other (See above)
Social History
Tobacco: Smoker (4 cigarettes daily)
Alcohol: None
Drug: None
Personal: Single
Living: Senior Living
Employment: Disabled
Family History
Family History: Not pertinent
Allergies / Home Medications
Allergies reflects when Allergies were last updated in [employer].
Home Medications with original date entered in [employer]
Allergy/Medication List:
Allergies
Allergy/AdvReac Type Severity Reaction Status Date / Time
No Known Allergies Allergy Verified 01/07/24 11:52
Home Medications
acetaminophen 500 mg tablet 1,000 mg PO TID Pain 06/29/23
cholecalciferol (vitamin D3) 25 mcg (1,000 unit) tablet 25 mcg PO DAILY Supplement 06/29/23
lidocaine 4 % topical patch 1 patch topical DAILY right shoulder 06/29/23
famotidine 20 mg tablet 20 mg PO Q48H #0 tabs 07/26/23
pantoprazole 40 mg tablet,delayed release 40 mg PO BID #0 tabs 07/26/23
midodrine 2.5 mg tablet 2.5 mg PO Q8HPRN PRN sbp<100 08/22/23
apixaban 5 mg tablet (Eliquis) 5 mg PO BID #60 tabs 08/29/23
metoprolol succinate 50 mg tablet,extended release 24 hr 50 mg PO BID #60 tabs 08/29/23
sodium zirconium cyclosilicate 10 gram oral powder packet (Lokelma) 10 g PO MOWE Electrolyte Repletion 10/22/23
sodium zirconium cyclosilicate 5 gram oral powder packet (Lokelma) 5 g PO MOWE Electrolyte Repletion 10/22/23
aspirin 81 mg chewable tablet 81 mg PO DAILY Blood Clot Prevention/Tx 11/21/23
gabapentin 100 mg capsule 100 mg PO MOWEFR@0800 neuropathic pain 11/21/23
sennosides 8.6 mg-docusate sodium 50 mg tablet (Stool Softener-Laxative) 2 tab PO [id number] PRN constipation 11/21/23
collagenase clostridium histo. 250 unit/gram topical ointment (Santyl) 1 applic topical DAILY #90 grams 12/23/23
lactulose 10 gram/15 mL oral solution (Enulose) 20 g PO [id number] PRN no bm 3 days 12/31/23
hydromorphone 4 mg tablet 4 mg PO [id number] PRN chronic pain #4 tabs 01/04/24
Review of Systems
-
History Source: Patient
A 12 point ROS was completed and negative except as noted: Yes
Constitutional: Reports Fatigue and Other (Generalized body ache)
Musculoskeletal: Reports Muscle Pain
Physical Exam
Vital Signs
Vital Signs
Temp Pulse Resp BP Pulse Ox
97.6 F 104 16 160/98 99
01/07/24 11:52 01/07/24 15:00 01/07/24 14:15 01/07/24 14:56 01/07/24 14:00
Physical Exam
General: Pain, Good Appetite and Appears Chronically Ill
HEENT: NormoCephalic, Anicteric, Moist mucous membranes and Other (Right IJ cath)
Respiratory: Crackles (crackles (R), left lung clear to auscultate)
Cardiac: S1/S2 and Other (A-fib, mildly tachycardic)
GI: Soft, Non Tender and Distended
Genito-urinary: Clear Urine
Musculoskeletal: Other (Right knee stump, ulcer; muscle atrohpy of left leg)
Skin: Warm, Dry and Decubitus Ulcers
Neuro: Awake, Alert, Oriented and AO x 3
Psych: Calm
Laboratory Results
-
01/07/24 13:01
01/07/24 13:01
Laboratory Results
Total Bilirubin 1.6 mg/dl (0.2-1.3) H 01/07/24 13:01
AST 144 U/L (17-59) H 01/07/24 13:01
ALT 45 U/L (0-50) 01/07/24 13:01
Alkaline Phosphatase 164 U/L (38-126) H 01/07/24 13:01
Impression/Plan
-
IMPRESSION:
# ESRD
-Last hemodialysis 2 days ago, missed hemodialysis today
-Elevated BUN and creatinine, potassium within normal limits
-Small to moderate pleural effusion
-Nephrology consulted
-Plan on hemodialysis tomorrow
-Can tolerate p.o., keep p.o.
# Acute exacerbation of HFpEF
-proBNP> 27,000
-Most likely in the setting of fluid overload
-Anticipate to improve after dialysis tomorrow
-Monitor I/O and daily weights
# Paroxysmal A-fib
-Continue Eliquis and metoprolol
# Hyponatremia
-Likely dilutional
-Anticipate improvement after dialysis
# Normocytic anemia due to chronic disease
-Close to baseline
-EPO ordered by nephrology
# Metabolic acidosis
-Anticipate improvement after dialysis
# Transaminitis
-Most likely in the setting of fluid overload
-Anticipate improvement after dialysis
# Elevated blood pressure
-Anticipate improvement after dialysis
# History of DM type II
-Bedside glucose monitoring
-Sliding scale insulin
# GERD
-Continue home pantoprazole 40 twice daily
# DVT prophylaxis
-Eliquis
# Stump ulcer
Consulted wound care
Also consulted case management for placement options other than [facility] after discharge.
CODE STATUS: Full code
[2024-01-07 17:55] LABS: Glucose - Point of Care 91 mg/dl (70-99)
[2024-01-07] MEDS: ELIQUIS 5 MG PO (20:19)
[2024-01-07] MEDS: TOPROL XL 50 MG PO (20:19)
[2024-01-07] MEDS: PROTONIX 40 MG PO (20:19)
[2024-01-07] MEDS: TYLENOL 1000 MG PO (21:10)
[2024-01-07] MEDS: DILAUDID 4 MG PO (21:45)
[2024-01-07 22:18] LABS: Glucose - Point of Care 134 mg/dl (70-99)
--- NOTE | 2024-01-07 22:30 | PTCARENOTE ---
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 House [employer] made aware. No new orders at this time.
[2024-01-08 03:21] VITALS: BP 142/95
[2024-01-08 06:00] VITALS: BMI 26.0
[2024-01-08 07:00] VITALS: BP 139/98
--- NOTE | 2024-01-08 07:51 | W.PN.HOSP.TC ---
Addendum entered and electronically signed by Kin Hernandez MD 01/08/24 23:31:
Attending Addendum-
I saw and evaluated the patient. I reviewed the resident�s note and agree with findings and plan as documented in the resident�s note. Sub: seen while on bedside HD. complains of right shoulder pain and intermittent abd pain. Non rad Full 12 point
ROS reviewed and negative except as documented Exam- vitals reviewed in EMR GEN- NAD heart irreg irreg lungs crackles at bases abd soft NT ND ext Rt BKA poorly healing wound on stump
Plan:
# ESRD on hemodialysis (Friday, Friday, Friday)
- oliguric
- last documented HD 01/01 in hospital
- Nephrology on board
- HD today may need to repeat in am
- H/O non compliance
# Hypervolemic Hyponatremia
- improving
- HD/UF today
- repeat BMP in am
# Leukocytosis
- repeat cbc in am
# AE HFpEF
- HD/UF
- monitor daily wts strict I and O
# Hyperkalemia
- HD
- cont lokelma
- repeat BMP in am
# Transaminitis
- acute hep profile
- from congestion?
- DC Tylenol
- check RUQ us
- repeat LFT in am
# Metabolic Acidosis
- start PO bicarb
- repeat BMP in am
# PAD s/p BKA
-Continue aspirin
# Chronic Anemia
- from ESRD
- t/c epo as OP
- cbc in am
# Wound on stump
- wound care
- not well taken care of
# Paroxysmal atrial fibrillation
-Continue Eliquis
-Continue metoprolol
# History of hypotension
-Continue midodrine
# Chronic Pain and opioid dependence
- cont Dilaudid as per OP regimen
- PDMP reviewed
# Tobacco Abuse
- advised to quit
# DM
- not on meds
- cont SSI
Lumbar osteomyelitis/discitis of L2�3�4
Epidural abscess from L1 to sacrum postlaminectomy/26
History of psoas abscess
MSSA bacteremia
# GERD
-Continue Protonix, Pepcid
Full code
DVT prophylaxis-Eliquis
Renal diet
Dispo search for alternate SNF's [facility]
Time spent coordinating care, review of plan of care with resident, personally reviewed records in EMR, med rec, consults, notes, labs, radiology, d/w nursing � 60 mins
Original Note:
Today's Communication/Plan
-
Hemodialysis
Continue rest of care as before
Will trend LFTs, temps
Assessment / Plan
Assessment / Plan
68-year-old male with past medical history of ESRD on HD (via right IJ) who was brought to the ED for missing HD the last 2 days. He is coming [facility]. Patient has been admitted multiple times during the past month with the
same complaint (last admission 12/30 and discharged on 01/03). Apparently, he refuses dialysis at [facility] because of conflict with the dialysis nurse.
# ESRD
- Completed hemodialysis this morning (3hrs 30 mins)
- CXR (01/06): Small to moderate pleural effusion
- Appreciate Nephrology
- Can tolerate p.o., keep p.o.
- Appreciate case management-looking into placement options other than [facility] after discharge.
# Acute exacerbation of HFpEF
-proBNP> 27,000
-Most likely in the setting of fluid overload
-Anticipate to improve after dialysis tomorrow
-Monitor I/O and daily weights
# Paroxysmal A-fib
-Continue Eliquis and metoprolol
#PAD s/p BKA
-Continue Aspirin
# Hyponatremia
-Likely dilutional
-Anticipate improvement after dialysis
#Hyperkalemia
- Anticipate improvement after dialysis
- Will repeat labs tomorrow AM
- Receiving Lokelma
# Normocytic anemia due to chronic disease
-Close to baseline
-EPO ordered by nephrology
# Metabolic acidosis
-Anticipate improvement after dialysis
# Transaminitis
-Most likely in the setting of fluid overload
-Anticipate improvement after dialysis
# Elevated blood pressure
-Anticipate improvement after dialysis
# History of DM type II
-Bedside glucose monitoring
-Sliding scale insulin
#Chronic Pain and opioid dependence
- cont Dilaudid as per OP regime
# GERD
-Continue home pantoprazole 40 twice daily
# DVT prophylaxis
-Eliquis
# Stump ulcer
- Appreciate wound care
- Air overlay
CODE STATUS: Full code
Anticipated Discharge: 24 - 48 hours
Subjective/Interval History
-
Date of Service: January 08, 2024
Patient complains of a right shoulder pain. Denies nausea/vomiting. Can tolerate po well. Denies abdominal pain. Denies CP, SOB.
Objective Data
-
Labs:
Laboratory Results
01/08/24
07:00
WBC Pending
Hgb Pending
Hct Pending
Plt Count Pending
Sodium Pending
Potassium Pending
Chloride Pending
Carbon Dioxide Pending
Total Bilirubin Pending
AST Pending
ALT Pending
Alkaline Phosphatase Pending
Vital Signs:
Vital Signs
Temp Pulse Resp BP Pulse Ox
97.8 F 79 18 142/95 98
01/08/24 03:21 01/08/24 03:21 01/08/24 03:21 01/08/24 03:21 01/08/24 03:21
Review of Systems
-
History Source: Patient
All other systems: Reviewed and negative
Constitutional: Reports Other (Right shoulder pain)
Physical Exam
-
General: Well Developed and Appears Chronically Ill
HEENT: Normocephalic, Moist Mucous Membranes and Anicteric
Respiratory: Crackles (basilar crackles)
Cardiac: S1/S2, Irregular Rhythm and JVD (neg)
GI: Soft, Nontender, Normal Bowel Sounds and Distended
Musculoskeletal: No Edema and Other (right stump)
Skin: Warm, Dry and Other (right IJ cath)
Neuro: Awake, Alert, Oriented and AO x 3
[2024-01-08 08:32] LABS: Hematocrit 25.8 % (39.0-52.0); Mean Corpuscular Hgb 28.8 pg (27.0-31.0); Mean Corpuscular Volume 92.8 fL (80.0-94.0); Mean Platelet Volume 9.4 fL (7.4-10.4); Platelet Count 387 10^3/uL (130-400); Red Blood Cell Count 2.78 10^6/uL (4.70-6.10); Red Cell Dist. Width 20.4 % (11.5-14.5); White Blood Cell Count 13.3 10^3/uL (4.8-10.8)
--- NOTE | 2024-01-08 08:39 | WOUNDNOTE ---
L 2ND TOE (DORSAL)
--- NOTE | 2024-01-08 08:39 | WOUNDNOTE ---
[facility] RN note: Patient admitted with ESRD, non compliance, acute on chronic CHF. Patient refused HD at [facility].
See H&P for complete history.
PMH: R BKA with chronic stump wound, 08/2023 debridement of R BKA wound, PAD, anemia, chronic pain, opioid dependent, smoker, lumbar osteomyelitis, epidural abscess, laminectomy.
Wound Location and type/assessment: Patient admitted with: R BKA chronic full thickness wound to subcutaneous layer or deeper, mostly yellow fibrin with some crusted exudate, no surrounding erythema, small serous drainage. Santyl ointment being
used. No odor. L dorsal 2nd toe dry scabbed small abrasion. +Palpable L pedal pulse. Unable to assess sacral ulcer d/t patient on HD. Will try to visit later today to assess.
Appetite: good.
Pressure redistribution devices in place: Advanta with Accumax. KRYSTA Xiong to apply air overlay mattress. Patient stated he cannot turn self in bed. He lifts LLE and R BKA stump without difficulty.
Plan: R BKA wound care done. Air chair cushion placed under L foot/heel. Instructed patient pressure injury prevention measures.
Will confirm orders with Dr. Beltran or resident Dr. Thompson and discussed with KRYSTA Xiong.
Care plan to be updated and will follow as needed.
Instructed patient to follow up with vascular surgeon.
[2024-01-08] MEDS: RETACRIT 12000 UNITS IV (08:42)
[2024-01-08 09:38] LABS: ALT (SGPT) 274 U/L (0-50); Alkaline Phosphatase 150 U/L (38-126); Chloride 98 mmol/L (98-107); Potassium 5.5 mmol/L (3.5-5.1); Sodium 133 mmol/L (135-145); Total Bilirubin 1.7 mg/dl (0.2-1.3); Total Protein 6.1 g/dl (6.3-8.2)
[2024-01-08 09:41] LABS: Carbon Dioxide 11 mmol/L (22-30)
[2024-01-08 10:15] LABS: AST (SGOT) 821 U/L (17-59)
[2024-01-08] MEDS: HEPARIN 2200 UNITS INTRACATH (11:27)
--- NOTE | 2024-01-08 11:37 | W.PN.NEPH.HD ---
Assessment
-
Seen on HD. /o right shoulder pain. VSS, access ok
Progress Note - Hemodialysis
-
Date of Service: January 08, 2024
Duration: 30 minutes and 3 hours
Potassium Bath: 2
Calcium Bath: 2.5
Opti-Dialyzer: 160
Ultrafiltration: Other (3kg)
Blood Flow: 400
Dialysate Flow: 600
Heparin: no
EPO: 81428 units
--- NOTE | 2024-01-08 11:38 | CM ---
manager of tax reviewed patient's chart and met with patient this am, patient reports he has been at [facility] for approximately 7 months, and had a plan to stay with family once he became more mobile and leave nursing facility, patient would
have needed HD set up, patient was w/c level and had transfer board, since then there have been care meetings with patient's family and they have decided that they cannot take care of patient in their homes. Patient has been refusing physical
therapy and HD at [facility] facility, patient reports he does not like the facility and watch caser received a request to look for an alternative nursing facility for patient.
Options reviewed with patient and referrals sent to [facility], [facility] in [place], [facility], [facility], [facility], [facility], [facility]
at [facility], [facility], and [facility], patient has been denied at all of these facilities except for [facility] who are willing to evaluate further and they have requested Hep B and flow sheets which have been
faxed to Denia at .
Per admissions at [facility], patient has 16 Medicare days left.
Plan; To follow up with Denia in admissions at [facility], to see if they could accept patient.
--- NOTE | 2024-01-08 13:21 | WOUNDNOTE ---
[facility] RN note: Patient admitted with L sacral/buttocks stage 2 pressure injury. Sacrum red. Patient turned and waffle air overlay applied with help from RN Tyrese. Sandra heel off bed with pillow. Patient assisted with turning. Instructed patient pressure
injury prevention measures. Silicone border foam applied to sacrum. Nursing care plan to be updated. Will follow as needed.
[2024-01-08] MEDS: TYLENOL 1000 MG PO ×2 (13:25→16:41)
[2024-01-08] MEDS: LIDOCAINE 4% PATCH 1 PATCH TOPICAL (13:25)
[2024-01-08] MEDS: TOPROL XL 50 MG PO ×2 (13:25→19:57)
[2024-01-08] MEDS: PEPCID 20 MG PO (13:25)
[2024-01-08] MEDS: ELIQUIS 5 MG PO ×2 (13:26→19:57)
[2024-01-08] MEDS: SANTYL OINTMENT TOPICAL (13:26)
[2024-01-08] MEDS: LOW STRENGTH ASPIRIN 81 MG PO (13:26)
[2024-01-08] MEDS: VITAMIN D3 (cholecalciferol) 25 MCG PO (13:26)
[2024-01-08] MEDS: PROTONIX 40 MG PO ×2 (13:26→19:57)
[2024-01-08 14:02] VITALS: BP 139/98
[2024-01-08 15:00] VITALS: BP 155/96
[2024-01-08 19:26] VITALS: BP 141/89
[2024-01-08] MEDS: DILAUDID 4 MG PO (19:58)
[2024-01-08] MEDS: TYLENOL PO (22:24)
[2024-01-08 23:23] VITALS: BP 149/84
[2024-01-09 03:23] VITALS: BP 146/89
[2024-01-09 06:00] VITALS: BMI 25.2
--- NOTE | 2024-01-09 06:39 | VATNOTE ---
CALLED TO ASSESS RIJ TUNN HDC. DRSG COMPLETELY NON-OCCLUSIVE. RD PER PROTOCOL . SITE APPEARS WNL.
[2024-01-09 07:20] VITALS: BP 137/100
[2024-01-09 07:58] LABS: Glucose - Point of Care 107 mg/dl (70-99)
--- NOTE | 2024-01-09 08:03 | W.PN.HOSP.TC ---
Addendum entered and electronically signed by Kin Hernandez MD 01/10/24 01:28:
Attending Addendum-
I saw and evaluated the patient. I reviewed the resident�s note and agree with findings and plan as documented in the resident�s note. Sub: seen while on bedside HD. right shoulder pain improved. Non rad Full 12 point ROS reviewed and negative
except as documented Exam- vitals reviewed in EMR GEN- NAD heart irreg irreg lungs crackles at bases abd soft NT ND ext Rt BKA poorly healing wound on stump
Plan:
# ESRD on hemodialysis (Friday, Friday, Friday)
- oliguric
- last documented HD 01/01 in hospital
- Nephrology on board
- HD x 2 01/07, 01/08
- H/O non compliance
# Hypervolemic Hyponatremia
- improving
- HD/UF today
# Leukocytosis
- resolved
# AE HFpEF
- resolved
- HD/UF
- monitor daily wts strict I and O
# Hyperkalemia
- resolved
- HD
- cont lokelma
# Transaminitis
- acute hep profile
- from congestion?
- DC Tylenol
- check RUQ us - P
- resolving
# Metabolic Acidosis
- resolved post HD
- cont new PO bicarb
# PAD s/p BKA
-Continue aspirin
# Chronic Anemia
- from ESRD
- epo x 1
# Wound on stump
- wound care as OP
- not well taken care of
# Paroxysmal atrial fibrillation
-Continue Eliquis
-Continue metoprolol
# History of hypotension
-Continue midodrine
# Chronic Pain and opioid dependence
- cont Dilaudid as per OP regimen
- PDMP reviewed
# Tobacco Abuse
- advised to quit
# DM
- not on meds
- cont SSI
Lumbar osteomyelitis/discitis of L2�3�4
Epidural abscess from L1 to sacrum postlaminectomy/26
History of psoas abscess
MSSA bacteremia
# GERD
-Continue Protonix, Pepcid
Full code
DVT prophylaxis-Eliquis
Renal diet
Dispo DC to [facility]
Time spent coordinating care, DC planning, review of DC plan of care with resident, transition of care, review of records, med rec/scripts sent electronically, consults, notes, d/w consultants, nursing, family, and CM�35 mins
Original Note:
Today's Communication/Plan
-
Second hemodialysis at noon
Abdominal ultrasound
Discharge
Assessment / Plan
Assessment / Plan
68-year-old male with past medical history of ESRD on HD (via right IJ) who was brought to the ED for missing HD the last 2 days. He is coming from [facility]. Patient has been admitted multiple times during the past month with the
same complaint (last admission 12/30 and discharged on 01/03). Apparently, he refuses dialysis at [facility] because of conflict with the dialysis nurse.
# ESRD
- Completed first hemodialysis session yesterday morning (3hrs 30 mins)- Second session today at noon
- CXR (01/06): Small to moderate pleural effusion
- Appreciate Nephrology
- Can tolerate p.o., keep p.o.
- Appreciate case management-looking into placement options other than [facility] after discharge.
# Acute exacerbation of HFpEF
-proBNP> 27,000
-Most likely in the setting of fluid overload
-Anticipate to improve after second dialysis
-Cont to monitor I/O and daily weights
# Paroxysmal A-fib
-Continue Eliquis and Metoprolol
#PAD s/p BKA
-Continue Aspirin
# Hyponatremia
-Likely dilutional
-Resolved after dialysis
#Hyperkalemia
- Improved after dialysis
- Will repeat labs tomorrow AM
- Receiving Lokelma
# Normocytic anemia due to chronic disease
-Near baseline
-EPO ordered by nephrology
# Metabolic acidosis
-Anticipate improvement after dialysis
# Transaminitis
-Improved
-Most likely in the setting of fluid overload
-Tylenol held
-Anticipate improvement after second dialysis
-Ultrasound
# Elevated blood pressure
-Controlled
-Anticipate improvement after second dialysis
# History of DM type II
-Bedside glucose monitoring
-Sliding scale insulin
#Chronic Pain and opioid dependence
- cont Dilaudid as per OP regime
# GERD
-Continue home pantoprazole 40 twice daily
# DVT prophylaxis
-Eliquis
# Stump ulcer
- Appreciate wound care
- Air overlay
Case management actively involved with placement options. A bed is available for him at [facility].
CODE STATUS: Full code
Anticipated Discharge: Today
Subjective/Interval History
-
Date of Service: January 09, 2024
Patient does not offer any complaints.
Objective Data
-
Labs:
Laboratory Results
01/09/24
07:00
WBC Pending
Hgb Pending
Hct Pending
Plt Count Pending
Sodium Pending
Potassium Pending
Chloride Pending
Carbon Dioxide Pending
BUN Pending
Creatinine Pending
Glucose Pending
Calcium Pending
Total Bilirubin Pending
AST Pending
ALT Pending
Alkaline Phosphatase Pending
Vital Signs:
Vital Signs
Temp Pulse Resp BP Pulse Ox
98.4 F 103 18 146/89 96
01/09/24 03:23 01/09/24 03:23 01/09/24 03:23 01/09/24 03:23 01/09/24 03:23
I&O
01/08/24 01/09/24 01/10/24
06:59 06:59 06:59
Intake Total 1200 / 1200
Output Total 350 / 350
Balance 850 / 850
Review of Systems
-
History Source: Patient
All other systems: Reviewed and negative
Constitutional: Reports Other (generalized pain)
Physical Exam
-
General: No Apparent Distress and Comfortable
HEENT: Normocephalic, Moist Mucous Membranes and Anicteric
Respiratory: Clear to Auscultation and Non Labored Respirations
Cardiac: S1/S2 and Irregular Rhythm
GI: Soft, Nontender, Normal Bowel Sounds and Distended
Musculoskeletal: Other (right knee stump)
Skin: Warm and Dry
Neuro: Awake, Alert, Oriented and AO x 3
Psych: Calm
[2024-01-09] MEDS: LIDOCAINE 4% PATCH 1 PATCH TOPICAL (08:51)
[2024-01-09] MEDS: PROTONIX 40 MG PO (08:51)
[2024-01-09] MEDS: SANTYL OINTMENT 1 APPLIC TOPICAL (08:52)
[2024-01-09] MEDS: VITAMIN D3 (cholecalciferol) 25 MCG PO (08:54)
[2024-01-09] MEDS: SODIUM BICARBONATE 650 MG PO (08:56)
[2024-01-09] MEDS: LOW STRENGTH ASPIRIN 81 MG PO (08:56)
[2024-01-09] MEDS: NEURONTIN 100 MG PO (08:56)
[2024-01-09] MEDS: ELIQUIS 5 MG PO (08:56)
[2024-01-09] MEDS: TOPROL XL 50 MG PO (08:57)
[2024-01-09] MEDS: DILAUDID 4 MG PO (11:31)
[2024-01-09 11:42] VITALS: BP 149/86
[2024-01-09 12:09] LABS: Glucose - Point of Care 121 mg/dl (70-99)
--- NOTE | 2024-01-09 12:31 | CM ---
Chart reviewed and plan is for patient to transfer to [facility] today after HD, per HD nurse patient will have completed HD around 4pm, per physician team patient is for possible ultrasound of kidneys and after that patient will be stable for
transfer, multiple calls placed to [facility] and still no answer, they maybe having a problem with their phones. ethics manager will need to confirm that transfer can take place today.
Plan; Awaiting final confirmation from [facility] in [place] to see if they can take patient today.
[2024-01-09 12:46] LABS: % Basophils 0.6 % (0-2); % Eosinophils 2.3 % (0-6); % Immature Granulocytes 1.3 % (0-0.5); % Lymphocytes 7.9 % (20.5-51.1); % Monocytes 16.6 % (1.7-9.3); % Neutrophils 71.3 % (42.2-75.2); Absolute Basophils 0.1 10^3/uL (0-0.2); Absolute Eosinophils 0.2 10^3/uL (0-0.7); Absolute Immature Granulocytes 0.1 10^3/uL (0-0.05); Absolute Lymphocytes 0.8 10^3/uL (1.2-3.4); Absolute Monocytes 1.6 10^3/uL (0.1-0.6); Hematocrit 27.8 % (39.0-52.0); Hemoglobin 8.3 g/dL (13.0-18.0); Mean Corp Hgb Conc. 29.9 g/dL (33.0-37.0); Mean Corpuscular Hgb 27.9 pg (27.0-31.0); Mean Corpuscular Volume 93.6 fL (80.0-94.0); Mean Platelet Volume 9.5 fL (7.4-10.4); Nucleated Red Blood Cells % 0 % (-); Platelet Count 353 10^3/uL (130-400); Red Blood Cell Count 2.97 10^6/uL (4.70-6.10); Red Cell Dist. Width 20.7 % (11.5-14.5); White Blood Cell Count 9.8 10^3/uL (4.8-10.8)
[2024-01-09 13:14] LABS: ALT (SGPT) 204 U/L (0-50); AST (SGOT) 230 U/L (17-59); Albumin 2.8 g/dl (3.5-5.0); Alkaline Phosphatase 207 U/L (38-126); Blood Urea Nitrogen 59 mg/dl (9-20); Calcium 8.3 mg/dl (8.4-10.2); Carbon Dioxide 25 mmol/L (22-30); Chloride 99 mmol/L (98-107); Estimated Creatinine Clearance 19 ml/min; Glucose 116 mg/dl (70-99); Potassium 3.5 mmol/L (3.5-5.1); Sodium 136 mmol/L (135-145); Total Bilirubin 1.2 mg/dl (0.2-1.3); Total Protein 6.1 g/dl (6.3-8.2); eGFR 13.65
--- NOTE | 2024-01-09 13:27 | W.PN.NEPH.HD ---
Assessment
-
patient seen on HD
sbp stable at u/f
Progress Note - Hemodialysis
-
Date of Service: January 09, 2024
Duration: 30 minutes and 3 hours
Potassium Bath: 2
Calcium Bath: 2.5
Opti-Dialyzer: 160
Ultrafiltration: EDW
Blood Flow: 400
Dialysate Flow: 600
Heparin: none
EPO: 12,000
[2024-01-09] MEDS: RETACRIT 12000 UNITS IV (14:18)
[2024-01-09] MEDS: HEPARIN 4300 UNITS INTRACATH (15:41)
[2024-01-09 15:48] VITALS: BP 106/89
[2024-01-09 16:06] LABS: Hepatitis B Surface Antigen Negative (Negative)
[2024-01-09 16:23] LABS: Hepatitis B Core Ab, Total Negative (Negative); Hepatitis C Antibody Negative (Negative)
[2024-01-09 16:28] LABS: Hepatitis A Antibody, Total Negative (Negative)
[2024-01-09 16:32] LABS: Glucose - Point of Care 74 mg/dl (70-99)
[2024-01-09 17:36] LABS: Hepatitis B Surface Antibody Negative
--- NOTE | 2024-01-09 19:26 | W.DCSUMMARY ---
Addendum entered and electronically signed by Kin Hernandez MD 01/10/24 01:31:
Read, reviewed, and agree. See same day progress note for additional details. chmaged DC meds- DC tylenol RUQ US pend hep panel pend new BICARB 650mg PO BID. Accepting facility to be updated
Bon Hernandez MD
Original Note:
Documented by User: Ginger Thompson MD, Resident 01/09/24 19:41
Discharge Summary
Discharge Data
Date of Admission: 01/07/24
Date of Discharge: 01/09/24
-
Pending Results: No
Hospital Course
Patient is a 68-year-old male with past medical history of ESRD on HD (via right IJ) who was brought from [facility] to ED for missing HD the last 2 days because of conflict with the dialysis nurse. Patient had been admitted
multiple times during the past month for the same reason (last admission 12/30 and discharged on 01/03). Upon arrival in the ED, patient was alert and oriented and hemodynamically stable. Initial labs showed hyponatremia, elevated proBNP,
normocytic anemia (around baseline), metabolic acidosis, and transaminitis. CXR in ED (01/06) showed small to moderate pleural effusion. Patient completed 2 HD sessions while in the hospital (first hemodialysis session 01/07 and second session on
01/08). Hyponatremia and hyperkalemia and metabolic acidosis resolved after dialysis. LFTs improved. Bili normal prior to discharge.
Case management was able to place patient into a new skilled nursing. Patient was clinically stable after completing 2 hemodialysis sessions and was discharged to [facility]. He will continue dialysis in this facility.
Discharge Plan
-
Patient Disposition: Halfway/SNF
Discharge Diagnosis/Procedures: Missed Hemodialysis
Condition: Good
Diet: Regular, Low Fat and Low Cholesterol
Activity: As tolerated
Driving Restrictions: As prior to admission
Bathing Restrictions: None
Activity Restrictions/Additional Instructions:
Wound Care Instructions
L BKA wound-clean with Vashe wound cleanser, Santyl ointment, Vashe moistened gauze, dry gauze, cover with large silicone border foam or Kerlix wrap and stockinet. Change daily and prn loosened dressing.
Sacral/buttocks-clean with saline or soap and water, silicone border foam, change q 3 days and prn loosened dressing.
Elevate L heel off bed with pillow/s.
Pressure redistributing chair cushion (i.e. Gel or Roho).
Air mattress.
Follow up with vascular surgeon.
Follow up with wound resident care manager or at wound care center call for an appointment.
Referrals:
Vinnie Barbosa MD [Family Provider] -
Additional Discharge Medication Instructions: Please continue your medications as prior to admission.
Prescriptions:
Continued
lidocaine 4 % Adhesive Patch,Medicated
1 patch TOPICAL DAILY
acetaminophen 500 mg Tablet
1,000 mg PO TID
cholecalciferol (vitamin D3) 25 mcg (1,000 unit) Tablet
25 mcg PO DAILY
famotidine 20 mg Tablet
20 mg PO Q48H Qty: 0 0RF
pantoprazole 40 mg Tablet,Delayed Release (Dr/Ec)
40 mg PO BID Qty: 0 0RF
midodrine 2.5 mg Tablet
2.5 mg PO Q8HPRN PRN (Reason: sbp<100)
Eliquis 5 mg Tablet
5 mg PO BID Qty: 60 0RF
metoprolol succinate 50 mg Tablet Extended Release 24 Hr
50 mg PO BID Qty: 60 0RF
Lokelma 5 gram Powder In Packet
5 g PO MOWE
Lokelma 10 gram Powder In Packet
10 g PO MOWE
aspirin 81 mg Tablet,Chewable
81 mg PO DAILY
sennosides-docusate sodium [Stool Softener-Laxative] 8.6-50 mg tablet
2 tab PO [id number] PRN (Reason: constipation)
gabapentin 100 mg capsule
100 mg PO MOWEFR@0800
Santyl 250 unit/gram Ointment
1 applic topical DAILY Qty: 90 0RF
Rx Instructions:
apply to R BKA wound
lactulose [Enulose] 10 gram/15 mL Solution
20 g PO [id number] PRN (Reason: no bm 3 days)
hydromorphone 4 mg tablet
4 mg PO [id number] PRN (Reason: chronic pain) Qty: 4 0RF
Discharge Orders:
Discharge Patient (As Directed); Ordered 01/09/24
Ordered By: Ginger Thompson
Discharge Date and Time
Discharge Date/Time: 01/09/24 18:27
Print Language: MAORI

Documented by User: Kin Hernandez MD 01/10/24 01:24
Discharge Summary
Discharge Data
Date of Admission: 01/07/24
Date of Discharge: 01/10/24
Discharge Plan
-
Patient Disposition: Halfway/SNF
Discharge Diagnosis/Procedures: Missed Hemodialysis
Condition: Good
Diet: Regular, Low Fat and Low Cholesterol
Activity: As tolerated
Driving Restrictions: As prior to admission
Bathing Restrictions: None
Activity Restrictions/Additional Instructions:
Wound Care Instructions
L BKA wound-clean with Vashe wound cleanser, Santyl ointment, Vashe moistened gauze, dry gauze, cover with large silicone border foam or Kerlix wrap and stockinet. Change daily and prn loosened dressing.
Sacral/buttocks-clean with saline or soap and water, silicone border foam, change q 3 days and prn loosened dressing.
Elevate L heel off bed with pillow/s.
Pressure redistributing chair cushion (i.e. Gel or Roho).
Air mattress.
Follow up with vascular surgeon.
Follow up with wound resident care manager or at wound care center call for an appointment.
Referrals:
Vinnie Barbosa MD [Family Provider] -
Additional Discharge Medication Instructions: Please continue your medications as prior to admission.
Prescriptions:
Continued
lidocaine 4 % Adhesive Patch,Medicated
1 patch TOPICAL DAILY
acetaminophen 500 mg Tablet
1,000 mg PO TID
cholecalciferol (vitamin D3) 25 mcg (1,000 unit) Tablet
25 mcg PO DAILY
famotidine 20 mg Tablet
20 mg PO Q48H Qty: 0 0RF
pantoprazole 40 mg Tablet,Delayed Release (Dr/Ec)
40 mg PO BID Qty: 0 0RF
midodrine 2.5 mg Tablet
2.5 mg PO Q8HPRN PRN (Reason: sbp<100)
Eliquis 5 mg Tablet
5 mg PO BID Qty: 60 0RF
metoprolol succinate 50 mg Tablet Extended Release 24 Hr
50 mg PO BID Qty: 60 0RF
Lokelma 5 gram Powder In Packet
5 g PO MOWE
Lokelma 10 gram Powder In Packet
10 g PO MOWE
aspirin 81 mg Tablet,Chewable
81 mg PO DAILY
sennosides-docusate sodium [Stool Softener-Laxative] 8.6-50 mg tablet
2 tab PO [id number] PRN (Reason: constipation)
gabapentin 100 mg capsule
100 mg PO MOWEFR@0800
Santyl 250 unit/gram Ointment
1 applic topical DAILY Qty: 90 0RF
Rx Instructions:
apply to R BKA wound
lactulose [Enulose] 10 gram/15 mL Solution
20 g PO [id number] PRN (Reason: no bm 3 days)
hydromorphone 4 mg tablet
4 mg PO [id number] PRN (Reason: chronic pain) Qty: 4 0RF
Discharge Orders:
Discharge Patient (As Directed); Ordered 01/09/24
Ordered By: Ginger Thompson
Discharge Date and Time
Discharge Date/Time: 01/09/24 18:27
Print Language: MAORI
== END 2024-01-09 18:27 | DRG 291 ==
LOC: 4 WEST ACU 16:58
PROVIDERS: Physician Assistant; Student in an Organized Health Care Education/Training Program; ADMITTING PHYSICIAN Family Medicine; EMERGENCY PHYSICIAN Emergency Medicine; FAMILY PHYSICIAN Internal Medicine; OTHER PHYSICIAN Specialist
PROC: 5A1D70Z Performance of Urinary Filtration, Intermittent, Less than 6 Hours Per Day (ICD-10-PCS; 2024-01-08)
DX: I13.2 Hypertensive heart and chronic kidney disease with heart failure and with stage 5 chronic kidney disease, or end stage renal disease (principal); I50.33 Acute on chronic diastolic (congestive) heart failure; N18.6 End stage renal disease; E87.1 Hypo-osmolality and hyponatremia; F11.20 Opioid dependence, uncomplicated; E87.20 Acidosis, unspecified; E11.22 Type 2 diabetes mellitus with diabetic chronic kidney disease; E11.51 Type 2 diabetes mellitus with diabetic peripheral angiopathy without gangrene; D63.1 Anemia in chronic kidney disease; G89.29 Other chronic pain; K21.9 Gastro-esophageal reflux disease without esophagitis; E87.5 Hyperkalemia; I48.0 Paroxysmal atrial fibrillation; T87.81 Dehiscence of amputation stump; F17.210 Nicotine dependence, cigarettes, uncomplicated; Z91.158 Patient's noncompliance with renal dialysis for other reason; Z99.2 Dependence on renal dialysis; Z89.511 Acquired absence of right leg below knee; Z91.199 Patient's noncompliance with other medical treatment and regimen due to unspecified reason; Z79.82 Long term (current) use of aspirin; Z79.01 Long term (current) use of anticoagulants; Z79.899 Other long term (current) drug therapy
CPT/HCPCS: 71046; 80051; 80053; 80076; 82962; 83880; 85025; 85027; 86704; 86706; 86708; 86803; 87070; 87147; 87340; 93005; 99285; G0257; P9047; Q5106